=== PATIENT | female | born 1950 | race Caucasian/White ===

== ENCOUNTER 2016-12-24 07:53 | Day surgery (SDC) | payer MEDICARE ==
[2016-12-22 10:33] VITALS: BMI 29.2
[~2016-12-24 07:53] MED LIST: LACTATED RINGERS 1,000 ML IV SCH
[2016-12-24 08:29] VITALS: RESP 18; TEMP 98.1
[2016-12-24] MEDS ORDERED: PROPOFOL 10 MG/ML 20 ML VIAL IV ONE (08:48)
[2016-12-24] MEDS ORDERED: LIDOCAINE 1% INJ 10MG/ML (20 ML MDV) ONE (08:48)
--- NOTE | 2016-12-24 09:00 | P.PCN ---
Date of Procedure: 12/24/16 Procedure(s) Performed: BRIEF HISTORY: Patient is a 66-year-old, pleasant, white female, scheduled for an upper endoscopy as a part of evaluation of intermittent dysphagia to solids for the last 2 years duration. Symptoms are related progressively getting worse and she feels the food gets stuck in the low sternal area. Often happens with solids and meat. She also complains of heartburn on a daily basis. She has prior history of gastric bypass surgery 7 years ago for obesity. In view of the symptoms she is scheduled for an upper endoscopy with possible dilation. PROCEDURE PERFORMED: Esophagogastroduodenoscopy with biopsy. PREOPERATIVE DIAGNOSIS: And intermittent dysphagia to solids of 2 years duration. IV sedation per anesthesia. PROCEDURE: After informed consent was obtained, the patient was brought into the endoscopy unit. IV sedation was administered by Anesthesia under continuous monitoring. Initially the Olympus GIF-140 video endoscope was inserted into the mouth. Esophagus intubated without any difficulty. It was gradually advanced into the stomach the gastric pouch was visualized that had mild erythema consistent with gastritis. The Kvng-en-Y anastomosis appeared normal. The afferent and efferent loops were normal. The scope was advanced with ease 40 cm into the efferent loop and the mucosa appeared normal. The scope at this time was withdrawn to the gastric pouch. Biopsies were done from the gastric pouch mucosa. The scope was then withdrawn into the esophagus. The GE junction was located at 39 cm from the incisors. The esophagus appeared normal. There was no evidence of esophageal strictures seen. There were no erosions or ulcerations seen and biopsies were done from the distal esophagus and the patient tolerated the procedure well. IMPRESSION: 1. Normal appearing gastric pouch with mild patchy areas of erythema consistent with gastritis. 2. Normal-appearing esophagus with no evidence of esophagitis or esophageal stricture, status post multiple biopsies. 3. Kvng-en-Y anastomosis appeared normal. RECOMMENDATIONS: The findings of this examination were discussed with the patient as well as a family. She was advised to follow with the biopsy results. She was given a prescription for Zantac 150 mg twice daily to be taken on a daily basis and follow antireflux measures.
[2016-12-24 09:05] LABS: Glucose,Whole Blood 84 mg/dL (75-99)
[2016-12-24 09:19] VITALS: BP 109/67; PULSE 73
[2016-12-24 09:21] LABS: Glucose,Whole Blood 80 mg/dL (75-99)
== END 2016-12-24 09:50 | disposition home or self-care (01) ==
LOC: ORWHC2ENDO 07:53
PROVIDERS: ATTEND Internal Medicine Gastroenterology
DX: K29.50 Unspecified chronic gastritis without bleeding (principal); R13.10 Dysphagia, unspecified; Z98.84 Bariatric surgery status; I10 Essential (primary) hypertension; E13.40 Other specified diabetes mellitus with diabetic neuropathy, unspecified; Z79.84 Long term (current) use of oral hypoglycemic drugs; F32.9 Major depressive disorder, single episode, unspecified; Z79.899 Other long term (current) drug therapy; Z88.5 Allergy status to narcotic agent; Z88.0 Allergy status to penicillin
CPT/HCPCS: 88305; 88342; 43239; J2001; J2704

== ENCOUNTER 2017-11-03 01:05 | Emergency (ER) | payer MEDICARE ==
[2017-11-03 01:12] VITALS: RESP 16
--- NOTE | 2017-11-03 02:01 | XR ---
EXAMINATION TYPE: XR shoulder complete RT DATE OF EXAM: 11/03/2017 COMPARISON: NONE HISTORY: Fall. Landed on the shoulder. Pain. TECHNIQUE: 3 views FINDINGS: There is comminuted slightly impacted humeral neck fracture. There is no dislocation. There is osteopenia. Scapula appears intact. Right upper ribs appear intact. IMPRESSION: Acute slightly impacted comminuted humeral neck fracture.
--- NOTE | 2017-11-03 02:07 | ED ---
Fall HPI - General Chief Complaint: Fall Stated Complaint: fall,arm injury Time Seen by Provider: 11/03/17 01:13 Source: patient Mode of arrival: wheelchair - History of Present Illness Initial Comments: 66-year-old right-hand dominant female presented to the emergency department via private vehicle for evaluation of right arm pain. Patient reports that she was reaching over to pet her dog when she lost her balance falling backwards and striking her right arm. She immediately felt pain in the right arm and had decreased range of motion due to pain. She reports normal strength and sensation in the hand and wrist as well as elbow. However she has pain with any attempt to move the right upper extremity. Patient reports that she took 800 mg of Motrin prior to coming to the ER and that helped the pain somewhat as did applying an ice pack. Patient reports that she has had broken bones in her feet before but never a broken upper extremity. She does not follow with an orthopedic surgeon. She is only been seen by a inside finisher in the past. Patient denies striking her head, or loss of consciousness. She denies any headache, vision changes or neck pain. She denies any other injuries. She reports that she is otherwise very state of health. - Related Data Home Medications Medication Instructions Recorded Confirmed ALPRAZolam [Xanax] 0.25 mg PO TID PRN 02/12/16 03/06/17 Gabapentin [Neurontin] 100 mg PO HS 02/12/16 03/06/17 HYDROcodone/APAP 10-325MG [[place] 1 tab PO QID PRN 02/12/16 03/06/17 10-325] Lisinopril [Zestril] 10 mg PO DAILY 02/12/16 03/06/17 metFORMIN HCL [Glucophage] 500 mg PO W/BRKFST 02/12/16 03/06/17 Morphine Sulfate ER [Ms Contin 30 mg PO Q8H 03/06/17 03/06/17 30Mg] Previous Rx's Medication Instructions Recorded Ciprofloxacin HCl [Cipro] 500 mg PO Q12HR #14 tablet 03/07/17 HYDROcodone/APAP 5-325MG [[place] 5] 1 each PO Q4HR PRN #12 tab 11/03/17 Allergies Allergy/AdvReac Type Severity Reaction Status Date / Time meperidine [From Demerol] Allergy Unknown Verified 03/06/17 20:22 Sulfa (Sulfonamide Allergy Unknown Verified 03/07/17 00:05 Antibiotics) Penicillins AdvReac Shakiness Verified 03/06/17 20:22 Review of Systems ROS Statement: Those systems with pertinent positive or pertinent negative responses have been documented in the HPI. ROS Other: All systems not noted in ROS Statement are negative. Past Medical History Past Medical History: Diabetes Mellitus, Hypertension, Neurologic Disorder Additional Past Medical History / Comment(s): NEUROPATHY, MIGRAINES History of Any Multi-Drug Resistant Organisms: None Reported Past Surgical History: Bariatric Surgery, Bladder Surgery, Hysterectomy Additional Past Surgical History / Comment(s): ORAL SURGERY. COLONOSCOPY. LAP BAND THEN HAD BARIATRIC SURGERY Past Anesthesia/Blood Transfusion Reactions: No Reported Reaction Past Psychological History: Anxiety, Depression Smoking Status: Former smoker Past Alcohol Use History: None Reported Past Drug Use History: None Reported - Past Family History Mother Family Medical History: No Reported History General Exam Limitations: no limitations General appearance: alert, in no apparent distress Head exam: Present: atraumatic, normocephalic Eye exam: Present: normal appearance, PERRL, EOMI ENT exam: Present: mucous membranes moist, other (Edentulous) Neck exam: Present: normal inspection, full ROM. Absent: tenderness Respiratory exam: Present: normal lung sounds bilaterally. Absent: respiratory distress Cardiovascular Exam: Present: regular rate, normal rhythm GI/Abdominal exam: Present: soft. Absent: distended Rectal exam: Present: deferred Right Shoulder Exam: Present: tenderness, swelling, ecchymosis, deformity, crepitus. Absent: full ROM, abrasion Neurological exam: Present: alert, oriented X3 Psychiatric exam: Present: normal affect, normal mood Skin exam: Present: warm, dry, intact, other (Well-healing abrasions to the left forearm which patient reports is from playing with her dog) Course Vital Signs 11/03/17 11/03/17 01:06 03:07 Temperature 98.1 F 98.8 F Pulse Rate 74 91 Respiratory 16 16 Rate Blood Pressure 128/75 101/57 O2 Sat by Pulse 96 96 Oximetry Procedures - Orthopedic Splinting/Casting Injury #1 Upper Extremity Immobilizer: sling/shoulder immobilizer Medical Decision Making - Medical Decision Making Patient was seen and evaluated, patient with a fall onto her right arm now with obvious deformity Patient is neurovascularly intact, strong radial and ulnar pulses, normal sensation and range of motion of the fingers, wrist and elbow Patient declined by mouth or IV pain medication stating that she took a Motrin and is feeling better Xrays were ordered X-rays reveal a comminuted humeral fracture Patient was placed in a sling, after being placed in a sling patient did have some worsening pain and did request pain medication. Muscular morphine was given along with Zofran ODT for any associated nausea. She remained neurovascularly intact after splinting Discussed with patient the plan for discharge home, remain in the sling, follow- up with orthopedic surgery. I did offer the patient a prescription for Braggadocio for pain management, patient is agreeable, discussed with the patient the Braggadocio can be addicting and that it is a controlled substance and cannot be shared with others. Patient's breast understanding. Patient is right-handed so her ability to sign the paperwork was limited however she did make an attempt to sign paperwork with her left hand. All questions pertaining to care were answered to the best of my ability the patient was discharged home in stable condition. Disposition Clinical Impression: Fall, Right humeral fracture Disposition: HOME SELF-CARE Condition: Good Instructions: Fall Prevention for Older Adults (ED), Proximal Humerus Fracture (ED) Prescriptions: HYDROcodone/APAP 5-325MG [[place] 5] 1 each PO Q4HR PRN #12 tab PRN Reason: Pain Is patient prescribed a controlled substance at d/c from ED?: Yes Referrals: Bennie Orta MD [Primary Care Provider] - 1-2 days Jhonathan Hartmann MD [STAFF PHYSICIAN] - 1-2 days Americo Benton MD [Medical Doctor] - 1-2 days Time of Disposition: 02:50
[2017-11-03] MEDS ORDERED: MORPHINE SULFATE 4 MG/ML SYRINGE IM STA (02:09)
[2017-11-03] MEDS ORDERED: ONDANSETRON ODT 4 MG TAB PO STA (02:10)
[2017-11-03 03:09] VITALS: BP 101/57; PULSE 91; TEMP 98.8
== END 2017-11-03 02:55 | disposition home or self-care (01) ==
LOC: EC 01:05
DX: S42.351A Displaced comminuted fracture of shaft of humerus, right arm, initial encounter for closed fracture (principal); S50.812A Abrasion of left forearm, initial encounter; I10 Essential (primary) hypertension; E11.40 Type 2 diabetes mellitus with diabetic neuropathy, unspecified; G43.909 Migraine, unspecified, not intractable, without status migrainosus; Z87.891 Personal history of nicotine dependence; Z53.29 Procedure and treatment not carried out because of patient's decision for other reasons; Z79.84 Long term (current) use of oral hypoglycemic drugs; Z79.891 Long term (current) use of opiate analgesic; Z79.899 Other long term (current) drug therapy; Z88.5 Allergy status to narcotic agent; Z88.2 Allergy status to sulfonamides; Z88.0 Allergy status to penicillin; W01.0XXA Fall on same level from slipping, tripping and stumbling without subsequent striking against object, initial encounter; Y93.89 Activity, other specified; Y92.009 Unspecified place in unspecified non-institutional (private) residence as the place of occurrence of the external cause
CPT/HCPCS: 73030; 99283; 96372; L3670; J2270

== ENCOUNTER 2017-11-06 11:22 | Inpatient (IN) | payer MEDICARE ==
[2017-11-06] MEDS ORDERED: SODIUM CHLORIDE 0.9% 500 ML IV STA ×3 (11:30→13:30)
--- NOTE | 2017-11-06 11:34 | ED ---
General Adult HPI - General Chief complaint: Weakness Stated complaint: Weakness Time Seen by Provider: 11/06/17 11:24 Source: patient, RN notes reviewed Mode of arrival: EMS Limitations: no limitations - History of Present Illness Initial comments: Patient is a pleasant 66-year-old female presenting to the emergency Department with general weakness. Patient states symptoms started just 3 or 4 days ago. Patient has had multiple near falls. Patient did fall 3 days ago and broke her proximal right humerus. No other significant injuries. No head injury or loss of consciousness. Patient denies any isolated area of weakness. Patient states she is having shakes and weak all over. Patient states she has been drinking normally. No history of similar symptoms previously. No confusion. - Related Data Home Medications Medication Instructions Recorded Confirmed ALPRAZolam [Xanax] 0.25 mg PO TID PRN 02/12/16 11/06/17 Gabapentin [Neurontin] 100 mg PO HS 02/12/16 11/06/17 HYDROcodone/APAP 10-325MG [[place] 1 tab PO QID PRN 02/12/16 11/06/17 10-325] Morphine Sulfate ER [Ms Contin 30 mg PO TID 03/06/17 11/06/17 30Mg] Atorvastatin [Lipitor] 10 mg PO MOWEFR 11/06/17 11/06/17 FLUoxetine HCL [PROzac] 20 mg PO DAILY 11/06/17 11/06/17 Lisinopril [Prinivil] 5 mg PO DAILY 11/06/17 11/06/17 Oxybutynin Chloride [Ditropan] 5 mg PO BID 11/06/17 11/06/17 buPROPion XL [Wellbutrin Xl] 150 mg PO DAILY 11/06/17 11/06/17 Allergies Allergy/AdvReac Type Severity Reaction Status Date / Time meperidine [From Demerol] Allergy Unknown Verified 11/06/17 12:25 Sulfa (Sulfonamide Allergy Unknown Verified 11/06/17 12:25 Antibiotics) Penicillins AdvReac Shakiness Verified 11/06/17 12:25 Review of Systems ROS Statement: Those systems with pertinent positive or pertinent negative responses have been documented in the HPI. ROS Other: All systems not noted in ROS Statement are negative. Constitutional: Denies: fever Eyes: Denies: eye pain ENT: Denies: ear pain Respiratory: Denies: dyspnea Cardiovascular: Denies: chest pain Endocrine: Denies: fatigue Gastrointestinal: Denies: abdominal pain, melena Genitourinary: Denies: dysuria Musculoskeletal: Denies: back pain Skin: Denies: rash Neurological: Reports: weakness, abnormal gait. Denies: headache, confusion Past Medical History Past Medical History: Diabetes Mellitus, Hypertension, Neurologic Disorder Additional Past Medical History / Comment(s): NEUROPATHY, MIGRAINES History of Any Multi-Drug Resistant Organisms: None Reported Past Surgical History: Bariatric Surgery, Bladder Surgery, Hysterectomy Additional Past Surgical History / Comment(s): ORAL SURGERY. COLONOSCOPY. LAP BAND THEN HAD BARIATRIC SURGERY Past Anesthesia/Blood Transfusion Reactions: No Reported Reaction Past Psychological History: Anxiety, Depression Smoking Status: Former smoker Past Alcohol Use History: None Reported Past Drug Use History: None Reported - Past Family History Mother Family Medical History: No Reported History General Exam Limitations: no limitations General appearance: alert, in no apparent distress, other (Occasional tremors) Head exam: Present: atraumatic Eye exam: Present: normal appearance, PERRL, EOMI. Absent: nystagmus ENT exam: Present: mucous membranes dry Neck exam: Present: normal inspection Respiratory exam: Present: normal lung sounds bilaterally Cardiovascular Exam: Present: regular rate, normal rhythm GI/Abdominal exam: Present: soft. Absent: distended, tenderness Rectal exam: Present: normal inspection. Absent: black stool, bloody stool Extremities exam: Present: other (Right upper arm tenderness with mild swelling and ecchymosis) Neurological exam: Present: alert, oriented X3, CN II-XII intact. Absent: motor sensory deficit Expanded Neurological exam: Present: protecting the airway Patient oriented to: Present: person, place, time Speech: Present: fluid speech Motor strength exam: RUE: 5, LUE: 5, RLE: 5, LLE: 5 Eye Response: (4) open spontaneously Motor Response: (6) obeys commands Verbal Response: (5) oriented Psychiatric exam: Present: normal affect, normal mood Skin exam: Present: pallor Course Vital Signs 11/06/17 11/06/17 11:23 12:28 Temperature 99.1 F Pulse Rate 96 89 Respiratory 18 18 Rate Blood Pressure 90/45 85/50 O2 Sat by Pulse 98 98 Oximetry - Reevaluation(s) Reevaluation #1: 11/06/17 13:33 Patient does not meet sepsis criteria at this time. EKG Findings - EKG Comments: EKG Findings:: Normal sinus rhythm 89. KS 158. QRS 68. QT 334. QTC 406. Left axis. Small Q-wave appearance inferior and V3 through V6. No acute ST change. Medical Decision Making - Medical Decision Making Patient reevaluated and updated. Case discussed in detail with Dr. valles, who will admit for Dr. Martines. - Lab Data Result diagrams: 11/06/17 11:35 11/06/17 11:35 Lab Results 11/06/17 11/06/17 11/06/17 Range/Units 11:35 11:35 11:35 WBC 9.8 (3.8-10.6) k/uL RBC 2.80 L (3.80-5.40) m/uL Hgb 8.4 L (11.4-16.0) gm/dL Hct 27.7 L (34.0-46.0) % MCV 99.2 (80.0-100.0) fL MCH 30.1 (25.0-35.0) pg MCHC 30.3 L (31.0-37.0) g/dL RDW 14.0 (11.5-15.5) % Plt Count 195 (150-450) k/uL Neutrophils % 81 % Lymphocytes % 11 % Monocytes % 4 % Eosinophils % 1 % Basophils % 0 % Neutrophils # 8.0 H (1.3-7.7) k/uL Lymphocytes # 1.1 (1.0-4.8) k/uL Monocytes # 0.4 (0-1.0) k/uL Eosinophils # 0.1 (0-0.7) k/uL Basophils # 0.0 (0-0.2) k/uL Hypochromasia Marked PT (9.0-12.0) sec INR (<1.2) APTT (22.0-30.0) sec Sodium 136 L (137-145) mmol/L Potassium 4.3 (3.5-5.1) mmol/L Chloride 107 (98-107) mmol/L Carbon Dioxide 16 L (22-30) mmol/L Anion Gap 13 mmol/L BUN 51 H (7-17) mg/dL Creatinine 3.00 H (0.52-1.04) mg/dL Est GFR (CKD-EPI)AfAm 18 (>60 ml/min/1.73 sqM) Est GFR (CKD-EPI)NonAf 16 (>60 ml/min/1.73 sqM) Glucose 102 H (74-99) mg/dL Plasma Lactic Acid Christ (0.7-2.0) mmol/L Calcium 7.5 L (8.4-10.2) mg/dL Magnesium 2.0 (1.6-2.3) mg/dL Total Bilirubin 0.3 (0.2-1.3) mg/dL AST 22 (14-36) U/L ALT 27 (9-52) U/L Alkaline Phosphatase 116 (38-126) U/L Total Creatine Kinase 153 H (30-135) U/L CK-MB (CK-2) 4.4 H* (0.0-2.4) ng/mL CK-MB (CK-2) Rel Index 2.9 Troponin I <0.012 (0.000-0.034) ng/mL Total Protein 4.7 L (6.3-8.2) g/dL Albumin 2.3 L (3.5-5.0) g/dL TSH 0.748 (0.465-4.680) mIU/L Free T4 1.17 (0.78-2.19) ng/dL Free T3 pg/mL 1.9 L (2.8-5.3) pg/ml Urine Color Urine Appearance (Clear) Urine pH (5.0-8.0) Ur Specific [place] (1.001-1.035) Urine Protein (Negative) Urine Glucose (UA) (Negative) Urine Ketones (Negative) Urine Blood (Negative) Urine Nitrite (Negative) Urine Bilirubin (Negative) Urine Urobilinogen (<2.0) mg/dL Ur Leukocyte Esterase (Negative) Urine RBC (0-5) /hpf Urine WBC (0-5) /hpf Urine WBC Clumps (None) /hpf Urine Bacteria (None) /hpf Urine Yeast (Budding) (None) /hpf Stool Occult Blood (Negative) 11/06/17 11/06/17 11/06/17 Range/Units 11:35 11:35 12:21 WBC (3.8-10.6) k/uL RBC (3.80-5.40) m/uL Hgb (11.4-16.0) gm/dL Hct (34.0-46.0) % MCV (80.0-100.0) fL MCH (25.0-35.0) pg MCHC (31.0-37.0) g/dL RDW (11.5-15.5) % Plt Count (150-450) k/uL Neutrophils % % Lymphocytes % % Monocytes % % Eosinophils % % Basophils % % Neutrophils # (1.3-7.7) k/uL Lymphocytes # (1.0-4.8) k/uL Monocytes # (0-1.0) k/uL Eosinophils # (0-0.7) k/uL Basophils # (0-0.2) k/uL Hypochromasia PT 10.3 (9.0-12.0) sec INR 1.1 (<1.2) APTT 22.9 (22.0-30.0) sec Sodium (137-145) mmol/L Potassium (3.5-5.1) mmol/L Chloride (98-107) mmol/L Carbon Dioxide (22-30) mmol/L Anion Gap mmol/L BUN (7-17) mg/dL Creatinine (0.52-1.04) mg/dL Est GFR (CKD-EPI)AfAm (>60 ml/min/1.73 sqM) Est GFR (CKD-EPI)NonAf (>60 ml/min/1.73 sqM) Glucose (74-99) mg/dL Plasma Lactic Acid Christ 0.8 (0.7-2.0) mmol/L Calcium (8.4-10.2) mg/dL Magnesium (1.6-2.3) mg/dL Total Bilirubin (0.2-1.3) mg/dL AST (14-36) U/L ALT (9-52) U/L Alkaline Phosphatase (38-126) U/L Total Creatine Kinase (30-135) U/L CK-MB (CK-2) (0.0-2.4) ng/mL CK-MB (CK-2) Rel Index Troponin I (0.000-0.034) ng/mL Total Protein (6.3-8.2) g/dL Albumin (3.5-5.0) g/dL TSH (0.465-4.680) mIU/L Free T4 (0.78-2.19) ng/dL Free T3 pg/mL (2.8-5.3) pg/ml Urine Color Urine Appearance (Clear) Urine pH (5.0-8.0) Ur Specific [place] (1.001-1.035) Urine Protein (Negative) Urine Glucose (UA) (Negative) Urine Ketones (Negative) Urine Blood (Negative) Urine Nitrite (Negative) Urine Bilirubin (Negative) Urine Urobilinogen (<2.0) mg/dL Ur Leukocyte Esterase (Negative) Urine RBC (0-5) /hpf Urine WBC (0-5) /hpf Urine WBC Clumps (None) /hpf Urine Bacteria (None) /hpf Urine Yeast (Budding) (None) /hpf Stool Occult Blood Negative (Negative) 11/06/17 Range/Units 13:09 WBC (3.8-10.6) k/uL RBC (3.80-5.40) m/uL Hgb (11.4-16.0) gm/dL Hct (34.0-46.0) % MCV (80.0-100.0) fL MCH (25.0-35.0) pg MCHC (31.0-37.0) g/dL RDW (11.5-15.5) % Plt Count (150-450) k/uL Neutrophils % % Lymphocytes % % Monocytes % % Eosinophils % % Basophils % % Neutrophils # (1.3-7.7) k/uL Lymphocytes # (1.0-4.8) k/uL Monocytes # (0-1.0) k/uL Eosinophils # (0-0.7) k/uL Basophils # (0-0.2) k/uL Hypochromasia PT (9.0-12.0) sec INR (<1.2) APTT (22.0-30.0) sec Sodium (137-145) mmol/L Potassium (3.5-5.1) mmol/L Chloride (98-107) mmol/L Carbon Dioxide (22-30) mmol/L Anion Gap mmol/L BUN (7-17) mg/dL Creatinine (0.52-1.04) mg/dL Est GFR (CKD-EPI)AfAm (>60 ml/min/1.73 sqM) Est GFR (CKD-EPI)NonAf (>60 ml/min/1.73 sqM) Glucose (74-99) mg/dL Plasma Lactic Acid Christ (0.7-2.0) mmol/L Calcium (8.4-10.2) mg/dL Magnesium (1.6-2.3) mg/dL Total Bilirubin (0.2-1.3) mg/dL AST (14-36) U/L ALT (9-52) U/L Alkaline Phosphatase (38-126) U/L Total Creatine Kinase (30-135) U/L CK-MB (CK-2) (0.0-2.4) ng/mL CK-MB (CK-2) Rel Index Troponin I (0.000-0.034) ng/mL Total Protein (6.3-8.2) g/dL Albumin (3.5-5.0) g/dL TSH (0.465-4.680) mIU/L Free T4 (0.78-2.19) ng/dL Free T3 pg/mL (2.8-5.3) pg/ml Urine Color Yellow Urine Appearance Cloudy H (Clear) Urine pH 5.5 (5.0-8.0) Ur Specific [place] 1.013 (1.001-1.035) Urine Protein 1+ H (Negative) Urine Glucose (UA) Negative (Negative) Urine Ketones Negative (Negative) Urine Blood Small H (Negative) Urine Nitrite Negative (Negative) Urine Bilirubin Negative (Negative) Urine Urobilinogen <2.0 (<2.0) mg/dL Ur Leukocyte Esterase Large H (Negative) Urine RBC 17 H (0-5) /hpf Urine WBC >182 H (0-5) /hpf Urine WBC Clumps Few H (None) /hpf Urine Bacteria Moderate H (None) /hpf Urine Yeast (Budding) Moderate H (None) /hpf Stool Occult Blood (Negative) - Radiology Data Radiology results: report reviewed (Computed tomography scan of the brain shows no acute process.), image reviewed (Chest x-ray shows no acute intrathoracic disease.) Disposition Clinical Impression: Urinary tract infection, Acute renal failure, Anemia Disposition: ADMITTED IP TO THIS HOSP Condition: Serious Is patient prescribed a controlled substance at d/c from ED?: No Referrals: Bennie Orta MD [Primary Care Provider] - 1-2 days Decision Time: 13:33
[2017-11-06 11:52] LABS: Basophils % (A) 0 %; Eosinophils # (A) 0.1 k/uL (0-0.7); Eosinophils % (A) 1 %; HCT 27.7 % (34.0-46.0); HGB 8.4 gm/dL (11.4-16.0); Hypochromasia Marked; Lymphocytes # (A) 1.1 k/uL (1.0-4.8); Lymphocytes % (A) 11 %; MCH 30.1 pg (25.0-35.0); MCHC 30.3 g/dL (31.0-37.0); MCV 99.2 fL (80.0-100.0); Mean Platelet Volume 7.7; Monocytes # (A) 0.4 k/uL (0-1.0); Monocytes % (A) 4 %; Neutrophils % (A) 81 %; Platelet Count 195 k/uL (150-450); WBC 9.8 k/uL (3.8-10.6)
[2017-11-06 11:56] LABS: Albumin 2.3 g/dL (3.5-5.0); Calcium 7.5 mg/dL (8.4-10.2); Potassium 4.3 mmol/L (3.5-5.1); Total Bilirubin 0.3 mg/dL (0.2-1.3); Total Protein 4.7 g/dL (6.3-8.2)
[2017-11-06 11:58] LABS: INR 1.1 (<1.2); Partial Thromboplastin Time 22.9 sec (22.0-30.0); Prothrombin Time 10.3 sec (9.0-12.0)
[2017-11-06 12:07] LABS: Creatine Kinase 153 U/L (30-135)
--- NOTE | 2017-11-06 12:11 | XR ---
EXAMINATION TYPE: XR chest 1V DATE OF EXAM: 11/06/2017 HISTORY: Weakness. REFERENCE: Previous study of 02/12/2016. FINDINGS: There is chronic apparent elevation right hemidiaphragm. Heart size upper limits of normal. The lungs are clear. Pleural spaces are clear. IMPRESSION: NO ACTIVE INTRATHORACIC DISEASE.
[2017-11-06 12:13] LABS: T4, Free (Free Thyroxine) 1.17 ng/dL (0.78-2.19)
--- NOTE | 2017-11-06 12:13 | CT ---
EXAMINATION TYPE: CT brain wo con DATE OF EXAM: 11/06/2017 COMPARISON: Previous study dated 09/12/2010 HISTORY: generalized weakness CT DLP: 940.8 mGycm Automated exposure control for dose reduction was used. FINDINGS: There are increasing changes of sulcal prominence and ventriculomegaly, compatible with atrophic beebe ge. There is diffuse periventricular white matter lucency, compatible with chronic white matter ische claudette change. There is no acute focal lesion, mass effect or midline shift identified. I do not see angus dence of intracranial blood. Visualized portions of the paranasal sinuses and mastoids are clear. The bony calvarium is intact. IMPRESSION: 1. NO ACUTE INTRACRANIAL ABNORMALITY. 2. MILD DEGENERATIVE CHANGE.
[2017-11-06] MEDS ORDERED: PANTOPRAZOLE 40 MG/10 ML VIAL IVP STA (12:17)
[2017-11-06 12:20] LABS: Troponin I <0.012 ng/mL (0.000-0.034)
[2017-11-06 12:24] LABS: Creatine Kinase MB 4.4 ng/mL (0.0-2.4)
[2017-11-06] MEDS ORDERED: SODIUM CHLORIDE 0.9% 1,000 ML IV STA (12:25)
[2017-11-06 13:23] LABS: Appearance,Urine Cloudy (Clear); Bacteria,Urine Moderate /hpf; Bilirubin,Urine Negative (Negative); Blood,Urine Small (Negative); Budding Yeast,Urine Moderate /hpf; Color,Urine Yellow; Glucose,Urine (UA) Negative (Negative); Ketones,Urine Negative (Negative); Leukocyte Esterase,Urine Large (Negative); Nitrite,Urine Negative (Negative); PH, Urine 5.5 (5.0-8.0); Protein,Urine 1+ (Negative); RBC,Urine 17 /hpf (0-5); Specific Gravity,Urine 1.013 (1.001-1.035); Urobilinogen,Urine <2.0 mg/dL (<2.0); WBC,Urine >182 /hpf (0-5)
[2017-11-06] MEDS ORDERED: cefTRIAXone IN SWFI 1,000 MG/10 ML SYRINGE IVP STA (13:32)
[2017-11-06] MEDS ORDERED: NALOXONE 0.4 MG/ML 1 ML VIAL IV PRN (13:33)
[2017-11-06] MEDS ORDERED: SODIUM CHLORIDE 0.9% 1,000 ML IV ONE ×2 (14:08→16:27)
[2017-11-06 14:25] LABS: Basophils % (A) 0 %; Eosinophils # (A) 0.1 k/uL (0-0.7); Eosinophils % (A) 1 %; HCT 24.6 % (34.0-46.0); HGB 7.5 gm/dL (11.4-16.0); Hypochromasia Marked; Lymphocytes # (A) 0.6 k/uL (1.0-4.8); Lymphocytes % (A) 9 %; MCH 30.2 pg (25.0-35.0); MCHC 30.6 g/dL (31.0-37.0); MCV 98.8 fL (80.0-100.0); Mean Platelet Volume 8.2; Monocytes # (A) 0.1 k/uL (0-1.0); Monocytes % (A) 2 %; Neutrophils # (A) 5.6 k/uL (1.3-7.7); Neutrophils % (A) 87 %; Platelet Count 152 k/uL (150-450); RBC 2.49 m/uL (3.80-5.40); WBC 6.4 k/uL (3.8-10.6)
[2017-11-06] MEDS: SODIUM CHLORIDE 0.9% 1,000 ML IV SCH ×2 (15:40→22:02)
[2017-11-06 17:42] LABS: Glucose,Whole Blood 84 mg/dL (75-99)
[2017-11-06] MEDS: NOREPINEPHRINE 4 MG in SODIUM CHLORIDE 0.9% 250 ML IV SCH (18:15)
[2017-11-06] MEDS ORDERED: SODIUM CHLORIDE 0.9% 500 ML IV ONE (18:26)
[2017-11-06] MEDS ORDERED: cefTRIAXone IN SWFI 1,000 MG/10 ML SYRINGE IVP SCH (21:00)
[2017-11-06 22:01] LABS: Basophils % (A) 0 %; Eosinophils # (A) 0.2 k/uL (0-0.7); Eosinophils % (A) 1 %; HCT 33.4 % (34.0-46.0); Hypochromasia Moderate; Lymphocytes # (A) 1.3 k/uL (1.0-4.8); Lymphocytes % (A) 9 %; MCH 31.6 pg (25.0-35.0); MCHC 32.7 g/dL (31.0-37.0); MCV 96.8 fL (80.0-100.0); Monocytes # (A) 0.7 k/uL (0-1.0); Monocytes % (A) 5 %; Neutrophils % (A) 82 %; Platelet Count 168 k/uL (150-450); RBC 3.45 m/uL (3.80-5.40); RDW 14.4 % (11.5-15.5); WBC 14.6 k/uL (3.8-10.6)
[2017-11-06] MEDS: CEFEPIME 1 GM in SODIUM CHLORIDE 0.9% 50 ML IVPB SCH (22:02)
[2017-11-06 22:05] LABS: HGB 10.9 gm/dL (11.4-16.0)
[2017-11-07 04:42] VITALS: BMI 25.6
[2017-11-07 05:08] LABS: Basophils % (A) 0 %; Eosinophils # (A) 0.1 k/uL (0-0.7); Eosinophils % (A) 1 %; HCT 33.9 % (34.0-46.0); HGB 10.4 gm/dL (11.4-16.0); Hypochromasia Marked; Lymphocytes # (A) 0.7 k/uL (1.0-4.8); Lymphocytes % (A) 7 %; MCH 30.3 pg (25.0-35.0); MCHC 30.8 g/dL (31.0-37.0); MCV 98.3 fL (80.0-100.0); Mean Platelet Volume 7.6; Monocytes # (A) 0.5 k/uL (0-1.0); Monocytes % (A) 5 %; Neutrophils # (A) 8.7 k/uL (1.3-7.7); Neutrophils % (A) 84 %; Platelet Count 170 k/uL (150-450); Poikilocytosis Slight; RBC 3.44 m/uL (3.80-5.40); RDW 14.3 % (11.5-15.5); WBC 10.3 k/uL (3.8-10.6)
[2017-11-07] MEDS: NOREPINEPHRINE 4 MG in SODIUM CHLORIDE 0.9% 250 ML IV SCH (05:15)
[2017-11-07 06:06] LABS: Calcium 6.7 mg/dL (8.4-10.2); Magnesium 1.8 mg/dL (1.6-2.3); Phosphorus 4.5 mg/dL (2.5-4.5); Potassium 4.3 mmol/L (3.5-5.1)
[2017-11-07] MEDS ORDERED: Magnesium Replacement Protocol 1 EACH MISC MISCELLANE PRN (06:24)
[2017-11-07] MEDS: SODIUM CHLORIDE 0.9% 1,000 ML IV SCH ×3 (07:07→20:04)
--- NOTE | 2017-11-07 07:57 | XR ---
EXAMINATION TYPE: XR chest 1V DATE OF EXAM: 11/07/2017 HISTORY: Shortness of breath. COMPARISON: 11/06/2017 TECHNIQUE: Single view of the chest is submitted. FINDINGS: Demonstrated are scattered senescent parenchymal change. There is no evidence for focal infiltrate. The heart is stable. Hilar and mediastinal structures are within normal limits. Degenerative changes are seen of the dorsal spine. Again noted is right humeral fracture. IMPRESSION: 1. Chronic changes without evidence for acute pulmonary disease.
[2017-11-07] MEDS: MAGNESIUM SULFATE-D5W PMX 1 GM in DEXTROSE/WATER 1 100ML.BAG IVPB SCH ×2 (09:35→11:57)
[2017-11-07] MEDS: CEFEPIME 1 GM in SODIUM CHLORIDE 0.9% 50 ML IVPB SCH (09:35)
[2017-11-07] MEDS: PANTOPRAZOLE 40 MG/10 ML VIAL IV SCH (09:35)
[2017-11-07] MEDS: ATORVASTATIN 10 MG TAB PO SCH (09:35)
[2017-11-07] MEDS: buPROPion XL 150 MG TAB.ER.24H PO SCH (09:35)
[2017-11-07] MEDS: HYDROcodone/APAP 10-325MG 1 EACH TAB PO PRN ×3 (09:37→22:32)
--- NOTE | 2017-11-07 12:35 | P.CNPUL ---
History of Present Illness Consult date: 11/07/17 Requesting physician: Miguel A Haji Reason for consult: other (Hypertension, urinary tract infection, septic shock) Chief complaint: Weakness and falling frequently. History of present illness: This is a 66-year-old female, presented to the ER with mostly symptoms of generalized weakness. Her symptoms have been going on for the last 4 days. As a matter of fact she fell 3 days prior to her presentation, and she sustained a fracture of her proximal right humerus. Patient was seen in the ER, and she was given a referral [facility] her humerus fracture. Patient has not made an appointment yet. She presented yesterday mostly with recurrent episodes of falling, weakness, unable to be steady on her feet, and she was noted to have low blood pressure. Low hemoglobin of 7.5. Evidence of bacteriuria and pyuria, normal lactic acid, acute kidney injury picture, with BUN of 51 and creatinine of 3.0. Patient also noted to have leukocytosis. And she has been complaining of fever intermittently over the last 4 days. She also had symptoms of foul-smelling urine, and burning sensation on urination. Patient was admitted, given fluid boluses about 3 L. She was also transfused with 1 unit of packed RBC placed on norepinephrine, and she is presently on 4 g of norepinephrine. Patient has made a significant improvement over the last 24 hours, her blood pressure remains marginal, her urine output is now adequate , urine cultures and blood cultures are pending. Patient was empirically started on antibiotics. And she is now on cefepime. Patient is now comfortable , in no distress, she is alert oriented 3, and she denies any headaches, no blurred vision, no dizziness. Denies any chest pain, no shortness of breath no cough no wheezing. Denies any nausea vomiting or abdominal pain. She had urinary symptoms as noted above. And she had neurological symptoms of mostly weakness and unable to walk steadily on her feet for the last 4 days. Patient is also complaining of pain over the right humerus secondary to recent fall and fracture. According to the she had a similar episode years ago, and she required admission to the ICU and her main presentation was a urinary tract infection and sepsis. Review of Systems 14 point review of systems were obtained, please refer to pertinent positives and negatives as noted in HPI. Otherwise remaining systems are negative. Past Medical History Past Medical History: Diabetes Mellitus, Hypertension, Neurologic Disorder Additional Past Medical History / Comment(s): NEUROPATHY, MIGRAINES History of Any Multi-Drug Resistant Organisms: None Reported Past Surgical History: Bariatric Surgery, Bladder Surgery, Hysterectomy Additional Past Surgical History / Comment(s): ORAL SURGERY. COLONOSCOPY. LAP BAND THEN HAD BARIATRIC SURGERY; bladder surgery may have been for a benign cyst but is not sure Past Anesthesia/Blood Transfusion Reactions: No Reported Reaction Smoking Status: Never smoker - Past Family History Mother Family Medical History: Diabetes Mellitus Father Family Medical History: CVA/TIA, Diabetes Mellitus Medications and Allergies Home Medications Medication Instructions Recorded Confirmed Type ALPRAZolam [Xanax] 0.25 mg PO TID PRN 02/12/16 11/06/17 History Gabapentin [Neurontin] 100 mg PO HS 02/12/16 11/06/17 History HYDROcodone/APAP 10-325MG [[place] 1 tab PO QID PRN 02/12/16 11/06/17 History 10-325] Morphine Sulfate ER [Ms Contin 30 mg PO TID 03/06/17 11/06/17 History 30Mg] Atorvastatin [Lipitor] 10 mg PO MOWEFR 11/06/17 11/06/17 History FLUoxetine HCL [PROzac] 20 mg PO DAILY 11/06/17 11/06/17 History Lisinopril [Prinivil] 5 mg PO DAILY 11/06/17 11/06/17 History Oxybutynin Chloride [Ditropan] 5 mg PO BID 11/06/17 11/06/17 History buPROPion XL [Wellbutrin Xl] 150 mg PO DAILY 11/06/17 11/06/17 History Allergies Allergy/AdvReac Type Severity Reaction Status Date / Time meperidine [From Demerol] Allergy Unknown Verified 11/06/17 12:25 Sulfa (Sulfonamide Allergy Unknown Verified 11/06/17 12:25 Antibiotics) Penicillins AdvReac Shakiness Verified 11/06/17 12:25 Physical Exam Vitals: Vital Signs Temp Pulse Resp BP Pulse Ox 11/07/17 11:43 97 11/07/17 10:15 83 11 L 105/51 99 11/07/17 10:00 84 10 L 107/51 99 11/07/17 09:45 84 12 102/62 99 11/07/17 09:30 83 12 133/73 99 11/07/17 09:15 83 12 100 11/07/17 09:00 98 15 114/53 98 11/07/17 08:45 84 16 111/51 100 11/07/17 08:30 84 12 117/85 99 11/07/17 08:15 80 15 112/55 99 11/07/17 08:00 98.2 F 89 14 112/52 97 11/07/17 07:45 81 13 109/49 99 11/07/17 07:30 80 13 108/57 98 11/07/17 07:15 83 11 L 91/47 99 11/07/17 07:00 82 12 84/49 99 11/07/17 06:45 85 13 83/57 98 11/07/17 06:30 86 13 97/55 99 11/07/17 06:15 96 17 113/41 94 L 11/07/17 06:00 87 11 L 117/52 98 11/07/17 05:45 88 20 112/54 98 11/07/17 05:30 87 12 105/50 98 11/07/17 05:15 87 13 102/47 98 11/07/17 05:00 91 13 148/114 96 11/07/17 04:45 87 12 123/54 98 11/07/17 04:30 101 H 18 112/65 98 11/07/17 04:15 89 22 122/52 98 11/07/17 04:00 98.2 F 89 13 128/92 98 11/07/17 03:45 87 14 108/54 98 11/07/17 03:30 90 13 112/62 98 11/07/17 03:15 86 13 106/64 99 11/07/17 03:00 97 11 L 102/52 97 11/07/17 02:45 93 13 113/50 98 11/07/17 02:30 91 14 108/55 98 11/07/17 02:15 88 15 113/52 98 11/07/17 02:00 90 14 127/68 99 11/07/17 01:45 82 15 113/57 98 11/07/17 01:30 85 12 133/52 99 11/07/17 01:15 84 11 L 116/51 98 11/07/17 01:00 87 14 118/50 99 11/07/17 00:45 88 14 106/57 99 08/27/18 00:30 81 16 125/59 99 11/07/17 00:15 89 13 106/54 99 11/07/17 00:00 98.1 F 91 18 112/46 98 11/06/17 23:45 86 20 120/59 98 11/06/17 23:30 90 13 117/60 98 18 23:15 87 14 96/45 99 11/06/17 23:00 88 11 L 107/45 99 11/06/17 22:45 91 14 93/46 97 11/06/17 22:30 92 12 91/36 99 18 22:15 86 12 110/53 99 11/06/17 22:00 82 13 113/59 100 11/06/17 21:45 91 12 112/51 98 11/06/17 21:30 91 11 L 103/40 99 11/06/17 21:15 88 19 96/53 98 11/06/17 21:00 92 14 85/55 96 11/06/17 20:45 88 12 104/54 99 11/06/17 20:30 89 13 104/41 98 11/06/17 20:15 84 11 L 112/54 98 11/06/17 20:00 98.3 F 97 22 108/53 97 11/06/17 19:40 85 12 82/40 98 11/06/17 19:34 98.3 F 88 18 82/40 11/06/17 19:20 84 16 98/56 99 11/06/17 19:00 83 11 L 91/51 98 11/06/17 18:40 98.2 F 73 18 85/39 99 18 18:20 85 75/46 99 11/06/17 18:10 98.1 F 88 18 66/37 99 11/06/17 18:00 98.2 F 84 18 73/47 99 18 17:50 91 70/45 98 11/06/17 17:40 98.2 F 92 95 11/06/17 17:15 97.9 F 85 18 81/49 100 18 16:29 82 16 82/41 100 11/06/17 15:40 85 18 76/45 95 11/06/17 14:28 97.7 F 81 16 85/43 97 11/06/17 13:42 98 F 94 20 88/53 97 11/06/17 12:28 89 18 85/50 98 Intake and Output 11/06/17 11/07/17 11/07/17 22:59 06:59 14:59 Intake Total 1292.187 2835.124 500 Output Total 650 745 355 Balance 868.376 431.124 145 Intake: IV 625 1000 500 Sodium Chloride 0.9% 1, 625 1000 500 000 ml @ 125 mls/hr IV . Q8H ALBERTO Rx#:[id number] Intake, IV Titration 583.376 176.124 Amount Norepinephrine 4 mg In 83.376 176.124 Sodium Chloride 0.9% 250 ml @ Titrate IV .Q0M ALBERTO Rx#:[id number] Sodium Chloride 0.9% 500 500 ml @ 999 mls/hr IV .Q31M ONE Rx#:[id number] Blood Product 310 Rc As-1 Unit 310 [id number] Output: Urine 650 745 355 Other: Voiding Method Indwelling Catheter Indwelling Catheter Indwelling Catheter Weight 63.5 kg Physical Exam: Revealed a 66-year-old female in no distress, very pleasant. Resting in bed quietly. Head: Atraumatic, normocephalic. HEENT:[Neck is supple.] [No neck masses.] [No thyromegaly.] [No JVD.] PERRLA, EOMI. No icterus. Chest: [Clear throughout, no crackles, no rhonchi, no wheezes.] Cardiac Exam: [Normal S1 and S2, no S3 gallop, no murmur.] Abdomen: [Soft, nontender, no megaly, no rebound, no guarding, normal bowel sounds.] Extremities: [No clubbing, no edema, no cyanosis.] There is evidence of ecchymosis noted on the proximal humerus area, and the right upper extremity is immobilized. Neurological Exam: [No focal neurologic deficit.] Alert oriented 3. Lymphatics: No lymphadenopathy. Musculoskeletal: Limited range of motion in the right upper extremity related to recent trauma otherwise unremarkable. Results - Laboratory Findings CBC and BMP: 11/07/17 04:50 11/07/17 04:50 PT/INR, D-dimer PT 10.3 sec (9.0-12.0) 11/06/17 11:35 INR 1.1 (<1.2) 11/06/17 11:35 Abnormal lab findings: Abnormal Labs 11/06/17 11/06/17 11/06/17 11:35 11:35 11:35 WBC RBC 2.80 L Hgb 8.4 L Hct 27.7 L MCHC 30.3 L Neutrophils # 8.0 H Lymphocytes # Sodium 136 L Chloride Carbon Dioxide 16 L BUN 51 H Creatinine 3.00 H Glucose 102 H Calcium 7.5 L Total Creatine Kinase 153 H CK-MB (CK-2) 4.4 H* Total Protein 4.7 L Albumin 2.3 L Free T3 pg/mL 1.9 L Urine Appearance Urine Protein Urine Blood Ur Leukocyte Esterase Urine RBC Urine WBC Urine WBC Clumps Urine Bacteria Urine Yeast (Budding) Crossmatch 11/06/17 11/06/17 11/06/17 11:35 13:09 14:11 WBC RBC 2.49 L Hgb 7.5 L Hct 24.6 L MCHC 30.6 L Neutrophils # Lymphocytes # 0.6 L Sodium Chloride Carbon Dioxide BUN Creatinine Glucose Calcium Total Creatine Kinase CK-MB (CK-2) Total Protein Albumin Free T3 pg/mL Urine Appearance Cloudy H Urine Protein 1+ H Urine Blood Small H Ur Leukocyte Esterase Large H Urine RBC 17 H Urine WBC >182 H Urine WBC Clumps Few H Urine Bacteria Moderate H Urine Yeast (Budding) Moderate H Crossmatch See Detail 11/06/17 11/07/17 11/07/17 21:35 04:50 04:50 WBC 14.6 H RBC 3.45 L 3.44 L Hgb 10.9 L D 10.4 L Hct 33.4 L 33.9 L MCHC 30.8 L Neutrophils # 12.0 H 8.7 H Lymphocytes # 0.7 L Sodium Chloride 116 H Carbon Dioxide 11 L BUN 43 H Creatinine 2.10 H Glucose 103 H Calcium 6.7 L Total Creatine Kinase CK-MB (CK-2) Total Protein Albumin Free T3 pg/mL Urine Appearance Urine Protein Urine Blood Ur Leukocyte Esterase Urine RBC Urine WBC Urine WBC Clumps Urine Bacteria Urine Yeast (Budding) Crossmatch - Diagnostic Findings Chest x-ray: image reviewed (Suspect a limited left lower lobe atelectasis.) Additional studies: CT of the brain no acute intracranial abnormality noted. Assessment and Plan Assessment: Impression: 1 acute sepsis and septic shock, most likely secondary to urinary tract infection. 2 acute urinary tract infection 3 acute kidney injury secondary to sepsis. 4 acute right humerus fracture 5 multiple comorbidities including benign essential hypertension, diabetes, depression, chronic history of urinary retention, hypercholesterolemia. Recommendation: Continue present supportive care measures including fluids, antibiotics, pressors/norepinephrine, titrate to a mean arterial pressure of 65. Orthopedic consultation was initiated. Continue to monitor in the ICU. GI and DVT prophylaxis. We'll continue to follow. Patient is critically ill, but improved compared to presentation last night. Critical care time is 40 minutes. Discussed her condition with her and her . Time with Patient: Greater than 30
[2017-11-07 15:22] LABS: Hemoglobin A1C 5.1 % (4.0-6.0)
--- NOTE | 2017-11-07 19:26 | P.NPCON ---
History of Present Illness - Reason for Consult Consult date: 11/07/17 acute renal failure - Chief Complaint Acute kidney injury with fall and fracture of the humerus and severe anemia - History of Present Illness This is a 66-year-old female seen in consultation because of acute kidney injury. Supposedly she fell accidentally and broke her right humerus and has a hematoma. She came in her pressure was low in the 60s sometimes and then she was found to be anemic with hemoglobin of 8.4. Her creatinine was 3 has improved to 2.1. She has chronic kidney disease with a creatinine of 1.2 as of 03/06/2017. Additionally she had fair amount of non-gap acidosis. Bicarb is 16 anion gap of 13. Patient is currently comfortable and denies any fever chills cough shortness of breath chest pain. No nausea vomiting diarrhea. No changes in medications recently No history of taking any nonsteroidals. Patient has no history of dysuria frequency. Urinalysis shows WBCs large leukocyte Estrace and possible UTI. Cultures are pending patient is on antibiotics. She is known with diabetes, history of lap band, Past Medical History Past Medical History: Diabetes Mellitus, Hypertension, Neurologic Disorder Additional Past Medical History / Comment(s): NEUROPATHY, MIGRAINES History of Any Multi-Drug Resistant Organisms: None Reported Past Surgical History: Bariatric Surgery, Bladder Surgery, Hysterectomy Additional Past Surgical History / Comment(s): ORAL SURGERY. COLONOSCOPY. LAP BAND THEN HAD BARIATRIC SURGERY; bladder surgery may have been for a benign cyst but is not sure Past Anesthesia/Blood Transfusion Reactions: No Reported Reaction Smoking Status: Never smoker - Past Family History Mother Family Medical History: Diabetes Mellitus Father Family Medical History: CVA/TIA, Diabetes Mellitus Medications and Allergies Home Medications Medication Instructions Recorded Confirmed Type ALPRAZolam [Xanax] 0.25 mg PO TID PRN 02/12/16 11/06/17 History Gabapentin [Neurontin] 100 mg PO HS 02/12/16 11/06/17 History HYDROcodone/APAP 10-325MG [[place] 1 tab PO QID PRN 02/12/16 11/06/17 History 10-325] Morphine Sulfate ER [Ms Contin 30 mg PO TID 03/06/17 11/06/17 History 30Mg] Atorvastatin [Lipitor] 10 mg PO MOWEFR 11/06/17 11/06/17 History FLUoxetine HCL [PROzac] 20 mg PO DAILY 11/06/17 11/06/17 History Lisinopril [Prinivil] 5 mg PO DAILY 11/06/17 11/06/17 History Oxybutynin Chloride [Ditropan] 5 mg PO BID 11/06/17 11/06/17 History buPROPion XL [Wellbutrin Xl] 150 mg PO DAILY 11/06/17 11/06/17 History Allergies Allergy/AdvReac Type Severity Reaction Status Date / Time meperidine [From Demerol] Allergy Unknown Verified 11/06/17 12:25 Sulfa (Sulfonamide Allergy Unknown Verified 11/06/17 12:25 Antibiotics) Penicillins AdvReac Shakiness Verified 11/06/17 12:25 Physical Exam Vitals: Vital Signs Temp Pulse Resp BP Pulse Ox 11/07/17 18:00 81 16 95/50 97 11/07/17 17:45 82 12 102/51 97 11/07/17 17:30 82 12 98/55 98 11/07/17 17:15 82 14 100/53 99 11/07/17 17:00 91 14 99/49 97 11/07/17 16:45 76 11 L 101/51 99 11/07/17 16:30 79 10 L 105/56 99 11/07/17 16:15 80 10 L 107/53 99 11/07/17 16:00 98.8 F 80 13 91/47 99 11/07/17 15:45 77 11 L 113/46 98 11/07/17 15:30 77 12 108/55 99 11/07/17 15:15 80 9 L 109/53 99 11/07/17 15:00 79 12 107/52 99 11/07/17 14:45 96 17 104/51 98 11/07/17 14:30 78 13 109/51 99 11/07/17 14:15 78 14 100/56 99 11/07/17 14:00 78 13 108/51 99 11/07/17 13:45 80 11 L 112/59 98 11/07/17 13:30 78 11 L 104/48 98 11/07/17 13:15 83 15 118/61 99 11/07/17 13:00 81 13 118/61 98 11/07/17 12:45 85 11 L 100/65 97 11/07/17 12:30 85 10 L 127/58 99 11/07/17 12:15 76 11 L 104/52 99 11/07/17 12:00 85 13 94/53 99 11/07/17 11:45 78 11 L 110/51 99 11/07/17 11:43 97 11/07/17 11:30 80 10 L 101/49 99 11/07/17 11:15 81 13 106/50 99 11/07/17 11:00 83 9 L 106/52 99 11/07/17 10:45 82 12 100/52 99 11/07/17 10:30 89 20 103/47 98 11/07/17 10:15 83 11 L 105/51 99 11/07/17 10:00 84 10 L 107/51 99 11/07/17 09:45 84 12 102/62 99 11/07/17 09:30 83 12 133/73 99 11/07/17 09:15 83 12 100 11/07/17 09:00 98 15 114/53 98 11/07/17 08:45 84 16 111/51 100 11/07/17 08:30 84 12 117/85 99 11/07/17 08:15 80 15 112/55 99 11/07/17 08:00 98.2 F 89 14 112/52 97 11/07/17 07:45 81 13 109/49 99 11/07/17 07:30 80 13 108/57 98 11/07/17 07:15 83 11 L 91/47 99 11/07/17 07:00 82 12 84/49 99 11/07/17 06:45 85 13 83/57 98 11/07/17 06:30 86 13 97/55 99 11/07/17 06:15 96 17 113/41 94 L 11/07/17 06:00 87 11 L 117/52 98 11/07/17 05:45 88 20 112/54 98 11/07/17 05:30 87 12 105/50 98 11/07/17 05:15 87 13 102/47 98 11/07/17 05:00 91 13 148/114 96 11/07/17 04:45 87 12 123/54 98 11/07/17 04:30 101 H 18 112/65 98 11/07/17 04:15 89 22 122/52 98 11/07/17 04:00 98.2 F 89 13 128/92 98 11/07/17 03:45 87 14 108/54 98 11/07/17 03:30 90 13 112/62 98 11/07/17 03:15 86 13 106/64 99 11/07/17 03:00 97 11 L 102/52 97 11/07/17 02:45 93 13 113/50 98 11/07/17 02:30 91 14 108/55 98 11/07/17 02:15 88 15 113/52 98 11/07/17 02:00 90 14 127/68 99 11/07/17 01:45 82 15 113/57 98 11/07/17 01:30 85 12 133/52 99 11/07/17 01:15 84 11 L 116/51 98 11/07/17 01:00 87 14 118/50 99 11/07/17 00:45 88 14 106/57 99 11/07/17 00:30 81 16 125/59 99 11/07/17 00:15 89 13 106/54 99 11/07/17 00:00 98.1 F 91 18 112/46 98 11/06/17 23:45 86 20 120/59 98 11/06/17 23:30 90 13 117/60 98 11/06/17 23:15 87 14 96/45 99 11/06/17 23:00 88 11 L 107/45 99 11/06/17 22:45 91 14 93/46 97 11/06/17 22:30 92 12 91/36 99 11/06/17 22:15 86 12 110/53 99 11/06/17 22:00 82 13 113/59 100 11/06/17 21:45 91 12 112/51 98 11/06/17 21:30 91 11 L 103/40 99 11/06/17 21:15 88 19 96/53 98 11/06/17 21:00 92 14 85/55 96 11/06/17 20:45 88 12 104/54 99 11/06/17 20:30 89 13 104/41 98 11/06/17 20:15 84 11 L 112/54 98 11/06/17 20:00 98.3 F 97 22 108/53 97 11/06/17 19:40 85 12 82/40 98 11/06/17 19:34 98.3 F 88 18 82/40 Intake and Output 11/07/17 11/07/17 11/07/17 06:59 14:59 22:59 Intake Total 0994.313 4670.125 517.703 Output Total 745 730 230 Balance 431.124 334.125 287.703 Intake: IV 1000 1000 500 Sodium Chloride 0.9% 1, 1000 1000 500 000 ml @ 125 mls/hr IV . Q8H ALBERTO Rx#:[id number] Intake, IV Titration 176.124 64.125 17.703 Amount Norepinephrine 4 mg In 176.124 64.125 17.703 Sodium Chloride 0.9% 250 ml @ Titrate IV .Q0M ALBERTO Rx#:[id number] Output: Urine 745 730 230 Other: Voiding Method Indwelling Catheter Indwelling Catheter Indwelling Catheter Weight 63.5 kg On examination she looks somewhat pale, awake alert oriented comfortable A chin exam no JVP lymphadenopathy thyromegaly no carotid bruit neck is supple no facial asymmetry Lungs are clear to auscultation and percussion good air entry bilaterally Heart sounds are unremarkable for any murmur rub gallop Abdomen soft nontender no organomegaly ascites masses Extremity exam reveals trace edema Neurologically awake alert oriented. She has fair amount of bruising on the right humerus and the right arm is in a sling. Results - Lab Results Most recent lab results Calcium 6.7 mg/dL (8.4-10.2) L 11/07/17 04:50 Phosphorus 4.5 mg/dL (2.5-4.5) 11/07/17 04:50 Magnesium 1.8 mg/dL (1.6-2.3) 11/07/17 04:50 11/07/17 04:50 11/07/17 04:50 Assessment and Plan Assessment: Impression 1. Acute kidney injury secondary to a fall with fracture of right humerus with subsequent large hematoma hemoglobin was 8.4 hypotension. Creatinine on admission was 3 improved to 2.1 with hydration. 2. Non-gap acidosis secondary acute kidney injury and bicarb was 16 gap was 13. With IV fluids gap has worsened to 11 inches expected. 3. Chronic kidney disease creatinine is 1.2 dated 03/06/2017 likely nephrosclerosis. Urinalysis shows 1+ proteinuria 3. History of accident in the fall. 4. Diabetes mellitus 5. History of lap band. Recommendation. 1. Start sodium bicarb 650 4 times a day. 2. Maintain IV fluids currently at normal 725 an hour. 3. Transfuse as needed. 4. Monitor labs including acid base. 5. Likely has urinary tract infection, cultures are pending currently on antibiotics. 6. Avoid nephrotoxic medication secondary to vancomycin and Bactrim and use other antibiotics Thank you for this consultation we'll continue to follow
[2017-11-07] MEDS: SODIUM BICARBONATE TAB 650 MG TAB PO SCH (20:05)
[2017-11-07] MEDS: NAPROXEN 250 MG TAB PO SCH (20:05)
[2017-11-07] MEDS ORDERED: NAPROXEN 250 MG TAB PO SCH (22:00)
[2017-11-07] MEDS ORDERED: NOREPINEPHRINE 4 MG in DEXTROSE 5% IN WATER 250 ML IV SCH ×2 (22:07)
--- NOTE | 2017-11-07 22:18 | HP ---
HISTORY AND PHYSICAL DATE OF SERVICE: 11/07/2017 PRESENTING COMPLAINT: Weak, tired. HISTORY OF PRESENTING COMPLAINT: This is a very pleasant 66-year-old patient Dr. Bennie Orta. Patient had presented to the ER on 11/03/2017 when she suffered a fall and had a fracture of the right upper humerus. She was given an arm sling. Yesterday patient was feeding her dog and she tripped and fell down yet again. She was brought into the ER. The patient was found to be hypotensive and in renal failure. Blood pressure was at 70 systolic. The patient was admitted to the ICU, started on IV fluids; also put on Levophed. Patient was given a unit of blood. Patient's creatinine in February of 2017 was 1.2. Today it was 3. Also patient was given bicarb because of metabolic acidosis. Patient is currently on 2 mcg of Levophed. Orthopedics was consulted. The patient has been feeling tired, rundown and occasionally dizzy. REVIEW OF SYSTEMS: CONSTITUTIONAL: Tired. HEENT: None. RESPIRATORY: None. CARDIOVASCULAR: None. GASTROINTESTINAL: None. GENITOURINARY: Urinary incontinence. DERMATOLOGICAL: Bruising on the right elbow. HEMATOLOGICAL: None. LYMPHATICS: None. PSYCHIATRY: None. NEUROLOGICAL: None. MUSCULOSKELETAL: Pain in the lower back and right shoulder. PAST MEDICAL HISTORY: 1. Diabetes mellitus, type 2. 2. Hypertension. 3. Chronic urine incontinence. 4. Depression. 5. Chronic low back pain. PAST SURGICAL HISTORY: 1. Bariatric surgery. 2. Bladder surgery. 3. Hysterectomy. 4. Oral surgery. 5. Lap band. PSYCH HISTORY: Depression. SOCIAL HISTORY: Does not smoke or drink alcohol. . FAMILY HISTORY: Diabetes. HOME MEDICATIONS: 1. Wellbutrin XL 150 mg a day. 2. Ditropan 5 mg p.o. b.i.d. 3. [place] Contin 30 mg t.i.d. 4. Prinivil 5 mg p.o. daily. 5. [place] 10 one tablet q.i.d. p.r.n. 6. Neurontin 100 mg p.o. at bedtime. 7. Prozac 20 mg a day. 8. Lipitor 10 mg p.o. Tuesday, Tuesday and Tuesday. 9. Xanax 0.25 p.o. t.i.d. p.r.n. ALLERGIES: 1. DEMEROL. 2. SULFA. 3. PENICILLIN. PHYSICAL EXAMINATION: VITAL SIGNS ON PRESENTATION: Temperature 99.1, pulse 96, respiration 18. Blood pressure was down to 76/45, pulse 98% on room air. GENERAL APPEARANCE: Average build. Sitting up, tired-appearing. EYES: Pupils equal. Conjunctivae pale. HEENT: External appearance of nose and ears normal. Oral cavity normal. NECK: JVD not raised. Mass not palpable. RESPIRATORY: Effort normal. LUNGS: Fair air entry. CARDIOVASCULAR: First and second sounds normal. No edema. ABDOMEN: Soft, non-tender. Liver and spleen not palpable. LYMPHATIC: No lymph node palpable in neck or axillae. PSYCHIATRY: Alert and oriented x3. Mood and affect normal. EXTREMITIES: Right arm in a sling with bruising noted in the upper part of the arm. INVESTIGATIONS: Hemoglobin was 7.5, potassium 4.3, BUN 51, creatinine 3.0. Back in on February of 2017 BUN and creatinine were 18 and 1.20. Also patient's UA positive for leukocyte esterase and WBC. ASSESSMENT: 1. Hypotensive shock. Patient admitted to the ICU. Patient is requiring IV fluids and Levophed. 2. Chronic anemia, cause unknown, asymptomatic. Could be a contribution from renal failure, requiring one unit of blood for hypotension. 3. Acute renal failure; could be acute tubular necrosis. Patient is also on ANU inhibitor. 4. Metabolic acidosis from renal failure. Patient's bicarbonate was down to 11. 5. Right humerus fracture secondary to fall. 6. Acute urinary tract infection. PLAN: Patient admitted to the ICU. Getting IV fluids and Levophed, antibiotics in form of IV cefepime. Home medications are resumed. ANU inhibitor was held. The patient was also given p.o. bicarb. Right arm is in a sling. Consultation was made to Critical Care, Nephrology and Orthopedics. Care was discussed the patient. Questions were answered. MMODL / IJN: [id number] /
[2017-11-08] MEDS: HYDROcodone/APAP 10-325MG 1 EACH TAB PO PRN ×4 (04:02→21:28)
[2017-11-08 04:58] LABS: Calcium 7.7 mg/dL (8.4-10.2); Magnesium 2.1 mg/dL (1.6-2.3); Phosphorus 3.8 mg/dL (2.5-4.5); Potassium 4.9 mmol/L (3.5-5.1)
[2017-11-08 05:27] LABS: Basophils % (A) 0 %; Eosinophils # (A) 0.1 k/uL (0-0.7); Eosinophils % (A) 2 %; HCT 30.8 % (34.0-46.0); HGB 9.8 gm/dL (11.4-16.0); Hypochromasia Slight; Lymphocytes # (A) 0.9 k/uL (1.0-4.8); Lymphocytes % (A) 16 %; MCH 30.5 pg (25.0-35.0); MCHC 31.7 g/dL (31.0-37.0); MCV 96.3 fL (80.0-100.0); Mean Platelet Volume 8.2; Monocytes # (A) 0.4 k/uL (0-1.0); Monocytes % (A) 8 %; Neutrophils % (A) 70 %; Platelet Count 192 k/uL (150-450); RDW 14.2 % (11.5-15.5); WBC 5.7 k/uL (3.8-10.6)
[2017-11-08] MEDS: SODIUM CHLORIDE 0.9% 1,000 ML IV SCH ×3 (05:37→20:17)
[2017-11-08] MEDS: PANTOPRAZOLE 40 MG/10 ML VIAL IV SCH (08:18)
[2017-11-08] MEDS: ATORVASTATIN 10 MG TAB PO SCH (08:18)
[2017-11-08] MEDS: NAPROXEN 250 MG TAB PO SCH (08:18)
[2017-11-08] MEDS: buPROPion XL 150 MG TAB.ER.24H PO SCH (08:18)
[2017-11-08] MEDS: SODIUM BICARBONATE TAB 650 MG TAB PO SCH ×4 (08:18→23:27)
[2017-11-08] MEDS: CEFEPIME 0.5 GM in SODIUM CHLORIDE 0.9% 50 ML IVPB SCH (09:12)
--- NOTE | 2017-11-08 10:58 | P.CNOR ---
History of Present Illness - [facility] Consult date: 11/08/17 Requesting physician: Americo Benton Consult reason: fracture (right proximal humerus) History of present illness: Patient is seen at bedside this am. She is a pleasant 66 yo female with a known right proximal humerus fracture. She presented to the ED on 11/03/17 after suffering a fall at home. Xrays showed a right proximal humerus fracture. ED provider placed in sling and advised to f/u with orthopedics. She was readmitted a few days later for ARF and multiple medical problems. She has been in a sling. She has pain at the right shoulder as expected. She denies numbness or tingling. She has no other complaints currently. Review of Systems All systems: negative Constitutional: Denies chills, Denies fever Eyes: denies blurred vision, denies pain Ears, nose, mouth and throat: Denies headache, Denies sore throat Cardiovascular: Denies chest pain, Denies shortness of breath Respiratory: Denies cough Gastrointestinal: Denies abdominal pain, Denies diarrhea, Denies nausea, Denies vomiting Genitourinary: Denies dysuria, Denies hematuria Musculoskeletal: Denies myalgias Integumentary: Denies pruritus, Denies rash Neurological: Denies numbness, Denies weakness Psychiatric: Denies anxiety, Denies depression Endocrine: Denies fatigue, Denies weight change Past Medical History Past Medical History: Diabetes Mellitus, Hypertension, Neurologic Disorder Additional Past Medical History / Comment(s): NEUROPATHY, MIGRAINES History of Any Multi-Drug Resistant Organisms: None Reported Past Surgical History: Bariatric Surgery, Bladder Surgery, Hysterectomy Additional Past Surgical History / Comment(s): ORAL SURGERY. COLONOSCOPY. LAP BAND THEN HAD BARIATRIC SURGERY; bladder surgery may have been for a benign cyst but is not sure Past Anesthesia/Blood Transfusion Reactions: No Reported Reaction Smoking Status: Never smoker - Past Family History Mother Family Medical History: Diabetes Mellitus Father Family Medical History: CVA/TIA, Diabetes Mellitus Medications and Allergies Home Medications Medication Instructions Recorded Confirmed Type ALPRAZolam [Xanax] 0.25 mg PO TID PRN 02/12/16 11/06/17 History Gabapentin [Neurontin] 100 mg PO HS 02/12/16 11/06/17 History HYDROcodone/APAP 10-325MG [[place] 1 tab PO QID PRN 02/12/16 11/06/17 History 10-325] Morphine Sulfate ER [Ms Contin 30 mg PO TID 03/06/17 11/06/17 History 30Mg] Atorvastatin [Lipitor] 10 mg PO MOWEFR 11/06/17 11/06/17 History FLUoxetine HCL [PROzac] 20 mg PO DAILY 11/06/17 11/06/17 History Lisinopril [Prinivil] 5 mg PO DAILY 11/06/17 11/06/17 History Oxybutynin Chloride [Ditropan] 5 mg PO BID 11/06/17 11/06/17 History buPROPion XL [Wellbutrin Xl] 150 mg PO DAILY 11/06/17 11/06/17 History Allergies Allergy/AdvReac Type Severity Reaction Status Date / Time meperidine [From Demerol] Allergy Unknown Verified 11/06/17 12:25 Sulfa (Sulfonamide Allergy Unknown Verified 11/06/17 12:25 Antibiotics) Penicillins AdvReac Shakiness Verified 11/06/17 12:25 Physical Examination Inspection of the right shoulder and arm show resolving echymoses. There is no erythema or deformity. ROM is not tested due to fracture. She has Motor and sensation intact throughout the right upper extremity. 2+ radial pulses and less than 2 sec cap refill present distally. Results Xrays of right shoulder show a mild displaced comminuted proximal humerus fracture. - Labs Labs: Abnormal Lab Results - Last 24 Hours (Table) 11/08/17 11/08/17 Range/Units 04:28 04:28 RBC 3.20 L (3.80-5.40) m/uL Hgb 9.8 L (11.4-16.0) gm/dL Hct 30.8 L (34.0-46.0) % Lymphocytes # 0.9 L (1.0-4.8) k/uL Chloride 118 H (98-107) mmol/L Carbon Dioxide 13 L (22-30) mmol/L BUN 33 H (7-17) mg/dL Creatinine 1.59 H (0.52-1.04) mg/dL Calcium 7.7 L (8.4-10.2) mg/dL Microbiology - Last 24 Hours (Table) 11/07/17 16:13 Urine Culture - Preliminary Urine,Catheterized H & H 08/11/06/17 11/06/17 Range/Units 11:35 14:11 21:35 Hgb 8.4 L 7.5 L 10.9 L D (11.4-16.0) gm/dL Hct 27.7 L 24.6 L 33.4 L (34.0-46.0) % 11/07/17 11/08/17 Range/Units 04:50 04:28 Hgb 10.4 L 9.8 L (11.4-16.0) gm/dL Hct 33.9 L 30.8 L (34.0-46.0) % Coagulation 11/06/17 Range/Units 11:35 INR 1.1 (<1.2) Result Diagrams: 11/08/17 04:28 11/08/17 04:28 Assessment and Plan (1) Right humeral fracture Narrative/Plan: The patient has been reviewed with Dr. Benton. There is no plan for immediate surgical intervention. Recommend continued use of sling, non weightbearing and pain management. She may f/u with Dr. Benton as an outpatient when discharged. We will sign off for now. Thank you Current Visit: No Status: Acute Priority: Medium Code(s): S42.301A - UNSP FRACTURE OF SHAFT OF HUMERUS, RIGHT ARM, INIT SNOMED Code(s): 23112245 Time with Patient: Less than 30
--- NOTE | 2017-11-08 11:24 | P.PN ---
Subjective Progress Note Date: 11/08/17 Principal diagnosis: Acute septic shock secondary to urinary tract infection This is a 66-year-old female, presented to the ER with mostly symptoms of generalized weakness. Her symptoms have been going on for the last 4 days. As a matter of fact she fell 3 days prior to her presentation, and she sustained a fracture of her proximal right humerus. Patient was seen in the ER, and she was given a referral [facility]. Patient has not made an appointment yet. She presented yesterday mostly with recurrent episodes of falling, weakness, unable to be steady on her feet, and she was noted to have low blood pressure. Low hemoglobin of 7.5. Evidence of bacteriuria and pyuria, normal lactic acid, acute kidney injury picture, with BUN of 51 and creatinine of 3.0. Patient also noted to have leukocytosis. And she has been complaining of fever intermittently over the last 4 days. She also had symptoms of foul-smelling urine, and burning sensation on urination. Patient was admitted, given fluid boluses about 3 L. She was also transfused with 1 unit of packed RBC placed on norepinephrine, and she is presently on 4 g of norepinephrine. Patient has made a significant improvement over the last 24 hours, her blood pressure remains marginal, her urine output is now adequate , urine cultures and blood cultures are pending. Patient was empirically started on antibiotics. And she is now on cefepime. Patient is now comfortable , in no distress, she is alert oriented 3, and she denies any headaches, no blurred vision, no dizziness. Denies any chest pain, no shortness of breath no cough no wheezing. Denies any nausea vomiting or abdominal pain. She had urinary symptoms as noted above. And she had neurological symptoms of mostly weakness and unable to walk steadily on her feet for the last 4 days. Patient is also complaining of pain over the right humerus secondary to recent fall and fracture. According to the she had a similar episode years ago, and she required admission to the ICU and her main presentation was a urinary tract infection and sepsis. Reevaluated today on 11/08/2017, patient is hemodynamically stable, off norepinephrine since 5:00 this morning. Blood pressure is stable. Patient is feeling better, relatively asymptomatic. WBC count is 5.7, hemoglobin is 9.8 electrolytes are relatively normal continues to have low bicarb and hyperchloremic metabolic acidosis. BUN is down to 33, creatinine is down to 1.59. Urine culture is pending. Patient was seen by orthopedics, and recommended that her right upper extremity remains in a sling, and should follow -up with him on outpatient basis. Objective - Vital Signs Vital signs: Vital Signs Temp 98.2 F 11/08/17 08:00 Pulse 73 11/08/17 10:00 Resp 13 11/08/17 10:00 BP 107/57 11/08/17 10:00 Pulse Ox 99 11/08/17 10:00 Intake & Output 11/07/17 11/08/17 11/08/17 18:59 06:59 18:59 Intake Total 5112.771 5597.938 495 Output Total 960 835 250 Balance 621.828 854.938 245 Weight 73 kg Intake: IV 1500 1625 375 Sodium Chloride 0.9% 1, 1500 1625 375 000 ml @ 125 mls/hr IV . Q8H ALBERTO Rx#:[id number] Intake, IV Titration 81.828 64.938 Amount Norepinephrine 4 mg In 18.625 Dextrose 5% in Water 250 ml @ Titrate IV .Q0M ALBERTO Rx#:[id number] Norepinephrine 4 mg In 81.828 46.313 Sodium Chloride 0.9% 250 ml @ Titrate IV .Q0M ALBERTO Rx#:[id number] Oral 120 Output: Urine 960 835 250 Other: Voiding Method Indwelling Catheter Indwelling Catheter Indwelling Catheter - Exam Physical Exam: Revealed a 66-year-old female in no distress, very pleasant. Head: Atraumatic, normocephalic. HEENT:[Neck is supple.] [No neck masses.] [No thyromegaly.] [No JVD.] PERRLA, EOMI. No icterus. Chest: [Clear throughout, no crackles, no rhonchi, no wheezes.] Cardiac Exam: [Normal S1 and S2, no S3 gallop, no murmur.] Abdomen: [Soft, nontender, no megaly, no rebound, no guarding, normal bowel sounds.] Extremities: [No clubbing, no edema, no cyanosis.] There is evidence of ecchymosis noted on the proximal humerus area, and the right upper extremity is in a sling as recommended by orthopedics Neurological Exam: [No focal neurologic deficit.] Alert oriented 3. Lymphatics: No lymphadenopathy. Musculoskeletal: Limited range of motion in the right upper extremity related to recent trauma otherwise unremarkable. Right upper extremity is in a sling. - Labs CBC & Chem 7: 11/08/17 04:28 11/08/17 04:28 Labs: Abnormal Lab Results - Last 24 Hours (Table) 11/08/17 11/08/17 Range/Units 04:28 04:28 RBC 3.20 L (3.80-5.40) m/uL Hgb 9.8 L (11.4-16.0) gm/dL Hct 30.8 L (34.0-46.0) % Lymphocytes # 0.9 L (1.0-4.8) k/uL Chloride 118 H (98-107) mmol/L Carbon Dioxide 13 L (22-30) mmol/L BUN 33 H (7-17) mg/dL Creatinine 1.59 H (0.52-1.04) mg/dL Calcium 7.7 L (8.4-10.2) mg/dL Microbiology - Last 24 Hours (Table) 11/07/17 16:13 Urine Culture - Preliminary Urine,Catheterized Assessment and Plan Assessment: Impression: 1 acute sepsis and septic shock, most likely secondary to urinary tract infection. 2 acute urinary tract infection 3 acute kidney injury secondary to sepsis. 4 acute right humerus fracture 5 multiple comorbidities including benign essential hypertension, diabetes, depression, chronic history of urinary retention, hypercholesterolemia. Recommendation: Continue present supportive care measures including fluids, antibiotics, however considering the blood pressure is stabilizing, patient could be transferred out of the ICU to a regular medical floor bed, and we'll continue antibiotics, continue present supportive care measures. Discussed her condition with her and with her at bedside. Time with Patient: Less than 30
--- NOTE | 2017-11-08 14:59 | PN ---
PROGRESS NOTE Patient is seen for followup for acute kidney injury. Renal function is significantly improved with creatinine down from 3 to 1.59 mg/dL. Patient is not on any pressors. She is maintained on IV fluids. PHYSICAL EXAMINATION: Blood pressure is 102/54, heart rate 79 per minute. She is afebrile. Examination of the heart: S1, S2. Examination of the lungs: Bilateral breath sounds are heard. Abdomen is soft, nontender. Examination lower extremity shows no evidence of edema. 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 LABS: Labs show sodium 137, potassium 4.9, chloride 118, BUN 33, serum creatinine 1.59, hemoglobin 9.8 g/dL. ASSESSMENT: 1. Acute kidney injury associated with hypotension hypoperfusion currently significantly improved. 2. Status post fall and fracture of right humerus with large hematoma. 3. Anemia associated with the development of hematoma. 4. CKD. Creatinine 1.2 on 03/06/2017. Etiology is likely nephrosclerosis. 5. History of lap band procedure. 6. Non anion gap metabolic acidosis, currently maintained on oral sodium bicarb CO2 is improved. Will continue to monitor for now. PLAN: Repeat labs in a.m. Continue with oral sodium bicarb. Continue to avoid nephrotoxic agents, particularly NSAIDs. MMODL / IJN: [id number] /
[2017-11-08] MEDS: DOCUSATE 100 MG CAP PO SCH (20:17)
--- NOTE | 2017-11-08 22:41 | PN ---
PROGRESS NOTE DATE OF SERVICE: 11/08/2017 PRESENTING COMPLAINT: Tired. INTERVAL HISTORY: This is a patient who presented with hypotensive shock, acute renal failure and UTI. The patient was taken off Levophed this morning. Renal function is getting a bit better. The patient did tolerate some diet, was in the ICU this morning. REVIEW OF SYSTEMS: Done for constitutional, cardiovascular, GI, pulmonary; relevant findings as above. CURRENT MEDICATIONS: Reviewed that include: 1. IV cefepime. 2. Sodium bicarb and. 3. IV fluids. EXAMINATION: Temperature 97.9, pulse 78, respirations 12, blood pressure 104/60, pulse ox 98% on 2L. GENERAL APPEARANCE: Lying in bed awake, tired-appearing. EYES: Pupils equal. Conjunctivae pale. HEENT: External appearance of nose and ears normal. Oral cavity normal. NECK: JVD not raised. Mass not palpable. RESPIRATORY: Effort normal. Lungs are clear. CARDIOVASCULAR: First and second sounds normal. No edema. ABDOMEN: Soft, nontender. Liver, spleen not palpable. PSYCHIATRY: Alert and oriented x3. Mood and affect normal. EXTREMITIES: Right arm in a sling, bruising still present. INVESTIGATIONS: White count 5.7, hemoglobin 9.8. Potassium 4.9, BUN 33, creatinine 1.59. ASSESSMENT: 1. Hypotensive shock status post Levophed, now corrected, off pressors. 2. Next chronic anemia, cause unknown, asymptomatic, could be related to renal failure. 3. Acute renal failure, could be acute tubular necrosis. The patient is off angiotensin-converting enzyme inhibitors, improving. 4. Metabolic acidosis from renal failure. 5. Right humerus fracture secondary to fall, currently for conservative management. 6. Acute urinary tract infection. Cultures pending. PLAN: Continue current medication and treatment plan. Await culture results. The patient will be moved out of ICU. Care was discussed with the patient. The patient may need inpatient rehab. MMODL / IJN: [id number] /
[2017-11-09] MEDS: HYDROcodone/APAP 10-325MG 1 EACH TAB PO PRN ×4 (03:29→21:45)
[2017-11-09] MEDS: ALPRAZolam 0.25 MG TAB PO PRN ×4 (03:30→21:45)
[2017-11-09] MEDS: SODIUM CHLORIDE 0.9% 1,000 ML IV SCH ×3 (07:00→21:29)
[2017-11-09 08:56] LABS: Basophils % (A) 0 %; Eosinophils # (A) 0.1 k/uL (0-0.7); Eosinophils % (A) 1 %; HCT 31.3 % (34.0-46.0); Hypochromasia Slight; Lymphocytes % (A) 12 %; MCH 30.9 pg (25.0-35.0); MCHC 31.9 g/dL (31.0-37.0); Mean Platelet Volume 7.8; Monocytes # (A) 0.5 k/uL (0-1.0); Monocytes % (A) 6 %; Neutrophils # (A) 6.3 k/uL (1.3-7.7); Neutrophils % (A) 78 %; Platelet Count 201 k/uL (150-450); RBC 3.23 m/uL (3.80-5.40); WBC 8.1 k/uL (3.8-10.6)
[2017-11-09 09:16] LABS: Calcium 7.9 mg/dL (8.4-10.2); Magnesium 1.9 mg/dL (1.6-2.3); Phosphorus 3.3 mg/dL (2.5-4.5); Potassium 3.9 mmol/L (3.5-5.1)
[2017-11-09] MEDS: CEFEPIME 0.5 GM in SODIUM CHLORIDE 0.9% 50 ML IVPB SCH (09:56)
[2017-11-09] MEDS: buPROPion XL 150 MG TAB.ER.24H PO SCH (09:56)
[2017-11-09] MEDS: DOCUSATE 100 MG CAP PO SCH ×2 (09:57→21:45)
[2017-11-09] MEDS: PANTOPRAZOLE 40 MG/10 ML VIAL IV SCH (10:26)
[2017-11-09] MEDS: SODIUM BICARBONATE TAB 650 MG TAB PO SCH ×4 (10:27→21:44)
[2017-11-09] MEDS: ATORVASTATIN 10 MG TAB PO SCH (10:27)
--- NOTE | 2017-11-09 13:49 | P.PN ---
Subjective Progress Note Date: 11/09/17 Principal diagnosis: Acute septic shock secondary to urinary tract infection This is a 66-year-old female, presented to the ER with mostly symptoms of generalized weakness. Her symptoms have been going on for the last 4 days. As a matter of fact she fell 3 days prior to her presentation, and she sustained a fracture of her proximal right humerus. Patient was seen in the ER, and she was given a referral [facility]. Patient has not made an appointment yet. She presented yesterday mostly with recurrent episodes of falling, weakness, unable to be steady on her feet, and she was noted to have low blood pressure. Low hemoglobin of 7.5. Evidence of bacteriuria and pyuria, normal lactic acid, acute kidney injury picture, with BUN of 51 and creatinine of 3.0. Patient also noted to have leukocytosis. And she has been complaining of fever intermittently over the last 4 days. She also had symptoms of foul-smelling urine, and burning sensation on urination. Patient was admitted, given fluid boluses about 3 L. She was also transfused with 1 unit of packed RBC placed on norepinephrine, and she is presently on 4 g of norepinephrine. Patient has made a significant improvement over the last 24 hours, her blood pressure remains marginal, her urine output is now adequate , urine cultures and blood cultures are pending. Patient was empirically started on antibiotics. And she is now on cefepime. Patient is now comfortable , in no distress, she is alert oriented 3, and she denies any headaches, no blurred vision, no dizziness. Denies any chest pain, no shortness of breath no cough no wheezing. Denies any nausea vomiting or abdominal pain. She had urinary symptoms as noted above. And she had neurological symptoms of mostly weakness and unable to walk steadily on her feet for the last 4 days. Patient is also complaining of pain over the right humerus secondary to recent fall and fracture. According to the she had a similar episode years ago, and she required admission to the ICU and her main presentation was a urinary tract infection and sepsis. Reevaluated today on 11/08/2017, patient is hemodynamically stable, off norepinephrine since 5:00 this morning. Blood pressure is stable. Patient is feeling better, relatively asymptomatic. WBC count is 5.7, hemoglobin is 9.8 electrolytes are relatively normal continues to have low bicarb and hyperchloremic metabolic acidosis. BUN is down to 33, creatinine is down to 1.59. Urine culture is pending. Patient was seen by orthopedics, and recommended that her right upper extremity remains in a sling, and should follow -up with him on outpatient basis. The patient is seen today 11/09/2017 in follow-up on the regular medical floor. She is currently awake. In no acute distress. Maintaining good O2 saturations in the high 90s on room air. She's been afebrile. Hemodynamically stable. Blood and urine cultures reveal no growth. White count 8.1. Hemoglobin 10.0. Creatinine 1.28. Objective - Vital Signs Vital signs: Vital Signs Temp 97.6 F 11/09/17 07:20 Pulse 79 11/09/17 07:20 Resp 16 11/09/17 07:20 BP 114/67 11/09/17 07:20 Pulse Ox 99 11/09/17 07:20 Intake & Output 11/08/17 11/09/17 11/09/17 18:59 06:59 18:59 Intake Total 1745 375 250 Output Total 800 1330 Balance 945 -955 250 Weight 59 kg 59 kg Intake: IV 1375 375 Sodium Chloride 0.9% 1, 1375 375 000 ml @ 125 mls/hr IV . Q8H ALBERTO Rx#:[id number] Oral 370 250 Output: Urine 800 1330 Uretheral (Krishnamurthy) 600 Other: Voiding Method Indwelling Catheter # Bowel Movements 1 - Exam Physical Exam: Revealed a 66-year-old female in no distress, very pleasant. Head: Atraumatic, normocephalic. HEENT:[Neck is supple.] [No neck masses.] [No thyromegaly.] [No JVD.] PERRLA, EOMI. No icterus. Chest: [Clear throughout, no crackles, no rhonchi, no wheezes.] Cardiac Exam: [Normal S1 and S2, no S3 gallop, no murmur.] Abdomen: [Soft, nontender, no megaly, no rebound, no guarding, normal bowel sounds.] Extremities: [No clubbing, no edema, no cyanosis.] There is evidence of ecchymosis noted on the proximal humerus area, and the right upper extremity is in a sling as recommended by orthopedics Neurological Exam: [No focal neurologic deficit.] Alert oriented 3. Lymphatics: No lymphadenopathy. Musculoskeletal: Limited range of motion in the right upper extremity related to recent trauma otherwise unremarkable. Right upper extremity is in a sling. - Labs CBC & Chem 7: 11/09/17 08:08 11/09/17 08:08 Labs: Abnormal Lab Results - Last 24 Hours (Table) 11/09/17 11/09/17 Range/Units 08:08 08:08 RBC 3.23 L (3.80-5.40) m/uL Hgb 10.0 L (11.4-16.0) gm/dL Hct 31.3 L (34.0-46.0) % Chloride 119 H (98-107) mmol/L Carbon Dioxide 14 L (22-30) mmol/L BUN 26 H (7-17) mg/dL Creatinine 1.28 H (0.52-1.04) mg/dL Glucose 101 H (74-99) mg/dL Calcium 7.9 L (8.4-10.2) mg/dL Microbiology - Last 24 Hours (Table) 11/07/17 16:13 Urine Culture - Final Urine,Catheterized 11/07/17 13:12 Blood Culture - Preliminary Blood No Growth after 24 hours 11/07/17 12:48 Blood Culture - Preliminary Blood No Growth after 24 hours Assessment and Plan Assessment: Impression: 1 acute sepsis and septic shock, most likely secondary to urinary tract infection. 2 acute urinary tract infection 3 acute kidney injury secondary to sepsis. 4 acute right humerus fracture 5 multiple comorbidities including benign essential hypertension, diabetes, depression, chronic history of urinary retention, hypercholesterolemia. Recommendation: The patient was seen and evaluated by Dr. Grove. She is currently stable from the pulmonary and critical care standpoint. We'll continue with her current medications. We'll continue to follow. I, the cosigning physician, performed a history & physical examination of the patient. Lungs sounds are clear. Maintaining good O2 saturations in the 90s on room air. I discussed the assessment and plan of care with my nurse practitioner, Jazmyne Stone. I attest to the above note as dictated by her.
[2017-11-09] MEDS ORDERED: CEFEPIME 1 GM in SODIUM CHLORIDE 0.9% 50 ML IVPB SCH (21:00)
--- NOTE | 2017-11-09 21:12 | PN ---
PROGRESS NOTE DATE OF SERVICE: 11/09/2017. She is seen for followup for acute kidney injury. She is currently doing much better. Renal function continues to improve. PHYSICAL EXAMINATION: On examination today, blood pressure was 125/59, heart rate 79 per minute. Patient is afebrile. Examination of the heart S1, S2. Examination of the lungs bilateral breath sounds are heard. Abdomen is soft, nontender. Examination lower extremities shows edema 1+ bilateral upper extremities. Left arm is in sling. LAB: Show serum creatinine 1.28, sodium 139, potassium 3.9, CO2 at 14, hemoglobin 10.0 g/dL. ASSESSMENT: 1. Acute kidney injury, acute tubular necrosis, nonoliguric, currently improving. 2. Severe metabolic acidosis maintained on oral sodium bicarb. The metabolic acidosis is not significantly improved. I will switch the IV fluids to IV bicarb. 3. Status post fall and fracture of right humerus with large hematoma. 4. Chronic kidney disease secondary to nephrosclerosis. Creatinine 1.2 on 03/06/2017. PLAN: Start IV bicarb. Repeat labs in a.m.. MMODL / IJN: [id number] /
[2017-11-09] MEDS: DEXTROSE 5% IN WATER 1,000 ML with SODIUM BICARB (1 MEQ/ML) 150 ML IV SCH (22:22)
[2017-11-10] MEDS: HYDROcodone/APAP 10-325MG 1 EACH TAB PO PRN ×3 (03:49→21:55)
--- NOTE | 2017-11-10 05:08 | PN ---
PROGRESS NOTE DATE OF SERVICE: 11/09/2017. PRESENTING COMPLAINT: Tired. INTERVAL HISTORY: The patient presents with hypotensive shock, acute renal failure, UTI, was in the ICU on Levophed, now moved out to the medical floor. Feels weak and tired, somewhat shaky. Some pain in the upper back. Did tolerate a diet. REVIEW OF SYSTEMS: Done for constitutional, cardiovascular, GI, pulmonary, musculoskeletal; relevant findings as above. CURRENT MEDICATIONS: Current medications are reviewed, include IV cefepime. PHYSICAL EXAMINATION: On examination, temperature 98.3, pulse 79, respirations 16, blood pressure 125/59, pulse ox 97% on room air. GENERAL APPEARANCE: Lying in bed, tired-appearing. EYES: Pupils equal. Conjunctivae pale. HENT: External appearance of nose and ears normal. Oral cavity normal. NECK: JVD not raised. Mass not palpable. RESPIRATORY: Effort normal. Lungs are clear. CARDIOVASCULAR: First and second sounds normal. No edema. ABDOMEN: Soft, nontender. Liver and spleen not palpable. PSYCHIATRY: Awake, alert. EXTREMITIES: Right arm in a sling. Bruising in the upper extremity. INVESTIGATIONS: White count 8.1, BUN 26, creatinine , bicarb 14. ASSESSMENT: 1. Hypotensive shock, status post Levophed, now corrected off pressors. 2. Chronic anemia-related to probably renal failure. 3. Acute renal failure, severe secondary to acute tubular necrosis, improving. 4. Metabolic acidosis from renal failure. 5. Right humerus fracture secondary to fall for conservative management. 6. Acute urinary tract infection. Cultures came back negative. PLAN: Continue current medication and treatment plan. Will switch the patient to Keflex. Patient to continue on sodium bicarb. IV fluids to continue. MMODL / IJN: [id number] /
[2017-11-10 08:42] LABS: Calcium 7.9 mg/dL (8.4-10.2); Magnesium 1.8 mg/dL (1.6-2.3); Phosphorus 2.5 mg/dL (2.5-4.5); Potassium 3.4 mmol/L (3.5-5.1)
[2017-11-10 08:52] LABS: Basophils % (A) 0 %; Eosinophils # (A) 0.2 k/uL (0-0.7); Eosinophils % (A) 4 %; HCT 29.6 % (34.0-46.0); HGB 9.3 gm/dL (11.4-16.0); Hypochromasia Slight; Lymphocytes # (A) 0.9 k/uL (1.0-4.8); Lymphocytes % (A) 14 %; MCH 30.6 pg (25.0-35.0); MCHC 31.5 g/dL (31.0-37.0); Mean Platelet Volume 7.4; Monocytes # (A) 0.4 k/uL (0-1.0); Monocytes % (A) 6 %; Neutrophils # (A) 4.8 k/uL (1.3-7.7); Neutrophils % (A) 74 %; Platelet Count 242 k/uL (150-450); RBC 3.05 m/uL (3.80-5.40); RDW 14.1 % (11.5-15.5); WBC 6.5 k/uL (3.8-10.6)
[2017-11-10] MEDS: CEPHALEXIN 500 MG CAP PO SCH ×4 (09:25→21:51)
[2017-11-10] MEDS: buPROPion XL 150 MG TAB.ER.24H PO SCH (09:25)
[2017-11-10] MEDS: ATORVASTATIN 10 MG TAB PO SCH (09:25)
[2017-11-10] MEDS: DOCUSATE 100 MG CAP PO SCH ×2 (09:26→21:51)
[2017-11-10] MEDS: PANTOPRAZOLE 40 MG/10 ML VIAL IV SCH (09:26)
[2017-11-10] MEDS: SODIUM BICARBONATE TAB 650 MG TAB PO SCH ×4 (09:26→21:52)
--- NOTE | 2017-11-10 09:59 | P.PN ---
Subjective Patient is seen in follow-up for acute kidney injury. Renal function is improving with creatinine down to 1.1 today. Denies any chest pain or shortness of breath. Oral intake is fair. Hemodynamically stable. Vital signs are stable. General: The patient appeared well nourished and normally developed. HEENT: Head exam is unremarkable. Neck is without jugular venous distension. LUNGS: Lungs are clear to auscultation and percussion. Breath sounds decreased. HEART: Rate and Rhythm are regular. First and second heart sounds normal. No murmurs, rubs or gallops. ABDOMEN: Abdominal exam reveals normal bowel sounds. Non-tender and non- distended. No evidence of peritonitis. EXTREMITITES: No clubbing, cyanosis, or edema. Objective - Vital Signs Vital signs: Vital Signs Temp 97.2 F L 11/10/17 06:00 Pulse 73 11/10/17 06:00 Resp 20 11/10/17 06:00 BP 141/69 11/10/17 06:00 Pulse Ox 98 11/10/17 06:00 Intake & Output 11/09/17 11/10/17 11/10/17 18:59 06:59 18:59 Intake Total 450 300 Output Total 200 Balance 250 300 Weight 59 kg Intake: Oral 450 300 Output: Urine 200 Other: Voiding Method Bedpan Bedpan # Voids 3 # Bowel Movements 0 - Labs CBC & Chem 7: 11/10/17 07:35 11/10/17 07:35 Labs: Abnormal Lab Results - Last 24 Hours (Table) 11/10/17 11/10/17 Range/Units 07:35 07:35 RBC 3.05 L (3.80-5.40) m/uL Hgb 9.3 L (11.4-16.0) gm/dL Hct 29.6 L (34.0-46.0) % Lymphocytes # 0.9 L (1.0-4.8) k/uL Potassium 3.4 L (3.5-5.1) mmol/L Chloride 116 H (98-107) mmol/L Carbon Dioxide 16 L (22-30) mmol/L BUN 23 H (7-17) mg/dL Creatinine 1.10 H (0.52-1.04) mg/dL Calcium 7.9 L (8.4-10.2) mg/dL Microbiology - Last 24 Hours (Table) 11/07/17 13:12 Blood Culture - Preliminary Blood No Growth after 48 hours 11/07/17 12:48 Blood Culture - Preliminary Blood No Growth after 48 hours Assessment and Plan Plan: Assessment: 1. Nonoliguric acute kidney injury mostly prerenal secondary to hypotension. Improving. Creatinine down to 1.1 today. 2. Chronic kidney disease. Creatinine 1.2 in February 2017. Etiology is nephrosclerosis. 3. Status post fall with fracture of the right humerus. 4. Metabolic acidosis secondary to acute kidney injury. 5. Hypokalemia secondary to intracellular shifting from IV bicarb. Plan: Maintain isotonic sodium bicarbonate drip to be run at 50 mL an hour. Maintain oral sodium bicarbonate. Encourage oral intake. Replace potassium. 40 mEq today. Avoid nephrotoxic agents and hypotensive episodes. Repeat electrolytes in the morning.
[2017-11-10] MEDS ORDERED: POTASSIUM CHLORIDE ER 20 MEQ TAB.ER PO STA (10:01)
--- NOTE | 2017-11-10 13:29 | CDI ---
Last Revision, February 2017 Documentation Clarification Form Date: 11/10/2017 12:58:02 PM From: Ledy Olivarez RN, CCDS Admit Date: 11/06/2017 1:34:00 PM Patient Name: Dinesh Alamo Visit Number: [id number] Discharge Date: ATTENTION: The Clinical Documentation Specialists (CDI) and [facility] Coding Staff appreciate your assistance in clarifying documentation. Please respond to the clarification below the line at the bottom and electronically sign. The CDI & [facility] Coding staff will review the response and follow-up if needed. Please note: Queries are made part of the Legal Health Record. If you have any questions, please contact the author of this message via ITS. Miguel A Triplett MD 11/07/17 Pulmonary consult and ongoing documentation has Sepsis and Septic shock secondary to UTI 11/07/17 Your H/P and ongoing documentation has Hypotensive shock, acute urinary tract infection History/Risk Factors: diabetes, mellitus, Hypertension, Clinical Indicators: Present with symptoms of generalized weakness and was noted to have low blood pressure, pyuria, foul -smelling urine, burning sensation on urination. She required admission to ICU. WBC/Left Shift: (11/06) 9.8, 6.4, 14.6, 10.3 HGB 7.5 CR 3.0 Lactic acid: .08 UA: Leukocyte Esterase -Large, Urine bacteria-Moderate Blood cultures: No growth after 48 hours Urine culture Final (11/07) No growth after 18 hours Vitals signs on admission: 90/45 96 18 99.1 98 % RA, 85/50 89 18 Chest x-ray: No acute intrathoracic disease Treatment: Norepinephine drip Maxipime IV ( now Keflex po) Rocephin IV ( now DC) IV Fluids bolus Monitor labs Pulmonary Consult: Presentation was a urinary tract infection and sepsis with septic shock In your professional opinion, please clarify if these findings signify one of the following conditions, whether the condition is POA, and cause, if known: Condition Sepsis ruled in Sepsis ruled out SIRS, without underlying infectious process Sepsis Severe Sepsis Septic Shock Other, please specify Unable to determine Present on Admission: Yes No Link or clarify if there is associated (due to/with): Organ failure Shock SIRS Criteria..2 or more of the following may indicate SIRS: Temperature < 96.8F (36C) or > 101.0F (38.3C) Heart Rate > 90 bpm Respiratory Rate > 20 breaths/min or PaCO2 < 32 mmHg White Blood Cell Count > 12,000 or < 4,000 cells/mm3 or > 10% bands Lactate >2.0 mmol/L (>4.0 is equivalent to septic shock) Please continue to document in your progress notes and discharge summary in order to capture severity of illness and risk of mortality. Include clinical findings that support your diagnosis. MTDD
[2017-11-10] MEDS: SODIUM CHLORIDE 0.9% 1,000 ML IV SCH (14:29)
--- NOTE | 2017-11-10 15:05 | P.PN ---
Subjective Progress Note Date: 11/10/17 Principal diagnosis: Acute septic shock secondary to urinary tract infection This is a 66-year-old female, presented to the ER with mostly symptoms of generalized weakness. Her symptoms have been going on for the last 4 days. As a matter of fact she fell 3 days prior to her presentation, and she sustained a fracture of her proximal right humerus. Patient was seen in the ER, and she was given a referral [facility] her humerus fracture. Patient has not made an appointment yet. She presented yesterday mostly with recurrent episodes of falling, weakness, unable to be steady on her feet, and she was noted to have low blood pressure. Low hemoglobin of 7.5. Evidence of bacteriuria and pyuria, normal lactic acid, acute kidney injury picture, with BUN of 51 and creatinine of 3.0. Patient also noted to have leukocytosis. And she has been complaining of fever intermittently over the last 4 days. She also had symptoms of foul-smelling urine, and burning sensation on urination. Patient was admitted, given fluid boluses about 3 L. She was also transfused with 1 unit of packed RBC placed on norepinephrine, and she is presently on 4 g of norepinephrine. Patient has made a significant improvement over the last 24 hours, her blood pressure remains marginal, her urine output is now adequate , urine cultures and blood cultures are pending. Patient was empirically started on antibiotics. And she is now on cefepime. Patient is now comfortable , in no distress, she is alert oriented 3, and she denies any headaches, no blurred vision, no dizziness. Denies any chest pain, no shortness of breath no cough no wheezing. Denies any nausea vomiting or abdominal pain. She had urinary symptoms as noted above. And she had neurological symptoms of mostly weakness and unable to walk steadily on her feet for the last 4 days. Patient is also complaining of pain over the right humerus secondary to recent fall and fracture. According to the she had a similar episode years ago, and she required admission to the ICU and her main presentation was a urinary tract infection and sepsis. Reevaluated today on 11/08/2017, patient is hemodynamically stable, off norepinephrine since 5:00 this morning. Blood pressure is stable. Patient is feeling better, relatively asymptomatic. WBC count is 5.7, hemoglobin is 9.8 electrolytes are relatively normal continues to have low bicarb and hyperchloremic metabolic acidosis. BUN is down to 33, creatinine is down to 1.59. Urine culture is pending. Patient was seen by orthopedics, and recommended that her right upper extremity remains in a sling, and should follow -up with him on outpatient basis. The patient is seen today 11/09/2017 in follow-up on the regular medical floor. She is currently awake. In no acute distress. Maintaining good O2 saturations in the high 90s on room air. She's been afebrile. Hemodynamically stable. Blood and urine cultures reveal no growth. White count 8.1. Hemoglobin 10.0. Creatinine 1.28. The patient is seen again today 11/10/2017 in follow-up on the regular medical floor. She is currently sitting up in a chair at the bedside. She is awake and alert in no acute distress. She has no pulmonary complaints. She does have some ongoing pain in her right upper extremity back and knee. She is maintaining good O2 saturations in the upper 90s on room air. She's been afebrile. Hemodynamically stable. Blood culture reveals no growth to date. Urine culture reveals no growth. White count 6.5. Hemoglobin 9.3. Creatinine 1.10. Bicarb 16. She remains on a bicarb drip at 50 mL per hour along with sodium bicarbonate tablets. Nephrology is following. Objective - Vital Signs Vital signs: Vital Signs Temp 97.2 F L 11/10/17 06:00 Pulse 73 11/10/17 06:00 Resp 20 11/10/17 06:00 BP 141/69 11/10/17 06:00 Pulse Ox 98 11/10/17 06:00 Intake & Output 11/09/17 11/10/17 11/10/17 18:59 06:59 18:59 Intake Total 450 300 Output Total 200 Balance 250 300 Weight 59 kg Intake: Oral 450 300 Output: Urine 200 Other: Voiding Method Bedpan Bedpan Bedpan Incontinent # Voids 3 1 # Bowel Movements 0 - Exam Physical Exam: Revealed a 66-year-old female in no distress, very pleasant. Head: Atraumatic, normocephalic. HEENT:[Neck is supple.] [No neck masses.] [No thyromegaly.] [No JVD.] PERRLA, EOMI. No icterus. Chest: [Clear throughout, no crackles, no rhonchi, no wheezes.] Cardiac Exam: [Normal S1 and S2, no S3 gallop, no murmur.] Abdomen: [Soft, nontender, no megaly, no rebound, no guarding, normal bowel sounds.] Extremities: [No clubbing, no edema, no cyanosis.] There is evidence of ecchymosis noted on the proximal humerus area, and the right upper extremity is in a sling as recommended by orthopedics Neurological Exam: [No focal neurologic deficit.] Alert oriented 3. Lymphatics: No lymphadenopathy. Musculoskeletal: Limited range of motion in the right upper extremity related to recent trauma otherwise unremarkable. Right upper extremity is in a sling. - Labs CBC & Chem 7: 11/10/17 07:35 11/10/17 07:35 Labs: Abnormal Lab Results - Last 24 Hours (Table) 11/10/17 11/10/17 Range/Units 07:35 07:35 RBC 3.05 L (3.80-5.40) m/uL Hgb 9.3 L (11.4-16.0) gm/dL Hct 29.6 L (34.0-46.0) % Lymphocytes # 0.9 L (1.0-4.8) k/uL Potassium 3.4 L (3.5-5.1) mmol/L Chloride 116 H (98-107) mmol/L Carbon Dioxide 16 L (22-30) mmol/L BUN 23 H (7-17) mg/dL Creatinine 1.10 H (0.52-1.04) mg/dL Calcium 7.9 L (8.4-10.2) mg/dL Microbiology - Last 24 Hours (Table) 11/07/17 13:12 Blood Culture - Preliminary Blood No Growth after 48 hours 11/07/17 12:48 Blood Culture - Preliminary Blood No Growth after 48 hours Assessment and Plan Assessment: Impression: 1 acute sepsis and septic shock, most likely secondary to urinary tract infection. Recovered. 2 acute urinary tract infection 3 acute kidney injury secondary to sepsis. 4 acute right humerus fracture 5 multiple comorbidities including benign essential hypertension, diabetes, depression, chronic history of urinary retention, hypercholesterolemia. Recommendation: The patient was seen and evaluated by Dr. Grove. She is currently stable from the pulmonary and critical care standpoint. We'll continue with her current medications. We'll see her on as-needed basis. I, the cosigning physician, performed a history & physical examination of the patient. Lungs sounds are clear. Maintaining good O2 saturations in the 90s on room air. I discussed the assessment and plan of care with my nurse practitioner, Jazmyne Stone. I attest to the above note as dictated by her.
[2017-11-10] MEDS: DEXTROSE 5% IN WATER 1,000 ML with SODIUM BICARB (1 MEQ/ML) 150 ML IV SCH (21:58)
[2017-11-10] MEDS: ALPRAZolam 0.25 MG TAB PO PRN (22:27)
[2017-11-11] MEDS: HYDROcodone/APAP 10-325MG 1 EACH TAB PO PRN ×2 (04:58→11:06)
[2017-11-11 06:04] VITALS: BP 125/77; PULSE 76; RESP 18; TEMP 98.2
[2017-11-11] MEDS: ALPRAZolam 0.25 MG TAB PO PRN (06:53)
--- NOTE | 2017-11-11 07:29 | PN ---
PROGRESS NOTE DATE OF SERVICE: 11/10/2017 PRESENT COMPLAINT: Tired. INTERVAL HISTORY: This patient presents hypotensive and possibly septic shock and acute renal failure, UTI, on the medical floor. Somewhat weak and tired. Oral intake is getting better. Has a right humerus fracture. REVIEW OF SYSTEMS: Done for constitutional, cardiovascular, GI, pulmonary, musculoskeletal and relevant findings as above. CURRENT MEDICATIONS: Reviewed that include p.o. Keflex and IV fluids. EXAMINATION: VITAL SIGNS: Temperature 98.5, pulse 76, respiratory rate 17, blood pressure 152/76, pulse ox 96 percent on room air. GENERAL APPEARANCE: Lying in bed, awake, tired-appearing. EYES: Pupils are equal. Conjunctivae pale. HEENT: External appearance of nose and ears normal. Oral cavity normal. NECK: JVD not raised. Mass not palpable. RESPIRATORY: Effort normal. LUNGS are clear. CARDIOVASCULAR: 1st and 2nd sounds normal. No edema. ABDOMEN: Soft, nontender. Liver and spleen not palpable. PSYCHIATRY: Awake, answering questions. EXTREMITIES: Right upper extremity in a dressing. INVESTIGATIONS: White count 6.5, potassium 3.4, BUN 23, creatinine 1.10. ASSESSMENT: 1. Hypotensive and septic shock, status post Levophed. 2. Chronic anemia related to renal failure. 3. Acute renal failure, secondary to acute tubular necrosis/prerenal continues to improve. 4. Metabolic acidosis from renal failure. 5. Right humerus fracture secondary to fall for conservative management. 6. Acute urinary tract infection. PLAN: Continue current medication and treatment plan. Patient is already on oral Lasix. Hopefully patient can be discharged to the [facility] tomorrow. We will keep the patient on sodium bicarb tablets. MMODL / IJN: [id number] /
[2017-11-11 07:53] LABS: Basophils % (A) 0 %; Eosinophils # (A) 0.3 k/uL (0-0.7); Eosinophils % (A) 4 %; HCT 28.2 % (34.0-46.0); HGB 8.9 gm/dL (11.4-16.0); Lymphocytes # (A) 1.1 k/uL (1.0-4.8); Lymphocytes % (A) 16 %; MCH 30.3 pg (25.0-35.0); MCHC 31.7 g/dL (31.0-37.0); MCV 95.4 fL (80.0-100.0); Mean Platelet Volume 7.3; Monocytes # (A) 0.4 k/uL (0-1.0); Monocytes % (A) 7 %; Neutrophils # (A) 4.8 k/uL (1.3-7.7); Neutrophils % (A) 72 %; Platelet Count 281 k/uL (150-450); RBC 2.95 m/uL (3.80-5.40); RDW 14.1 % (11.5-15.5); WBC 6.6 k/uL (3.8-10.6)
[2017-11-11 08:06] LABS: Calcium 7.6 mg/dL (8.4-10.2); Magnesium 1.8 mg/dL (1.6-2.3); Phosphorus 1.9 mg/dL (2.5-4.5); Potassium 3.6 mmol/L (3.5-5.1)
[2017-11-11] MEDS: CEPHALEXIN 500 MG CAP PO SCH ×2 (08:56→13:22)
[2017-11-11] MEDS: SODIUM CHLORIDE 0.9% 1,000 ML IV SCH (08:56)
[2017-11-11] MEDS: SODIUM BICARBONATE TAB 650 MG TAB PO SCH (08:57)
[2017-11-11] MEDS: buPROPion XL 150 MG TAB.ER.24H PO SCH (08:57)
[2017-11-11] MEDS: PANTOPRAZOLE 40 MG/10 ML VIAL IV SCH (08:57)
[2017-11-11] MEDS: ATORVASTATIN 10 MG TAB PO SCH (08:57)
[2017-11-11] MEDS: DOCUSATE 100 MG CAP PO SCH (08:57)
--- NOTE | 2017-11-11 09:17 | P.PN ---
Subjective Patient is seen in follow-up for acute kidney injury. Renal function is improving with creatinine down to 0.87 today. Denies any chest pain or shortness of breath. Oral intake is fair. Hemodynamically stable. Vital signs are stable. General: The patient appeared well nourished and normally developed. HEENT: Head exam is unremarkable. Neck is without jugular venous distension. LUNGS: Lungs are clear to auscultation and percussion. Breath sounds decreased. HEART: Rate and Rhythm are regular. First and second heart sounds normal. No murmurs, rubs or gallops. ABDOMEN: Abdominal exam reveals normal bowel sounds. Non-tender and non- distended. No evidence of peritonitis. EXTREMITITES: No clubbing, cyanosis, or edema. Objective - Vital Signs Vital signs: Vital Signs Temp 98.2 F 11/11/17 06:03 Pulse 76 11/11/17 06:03 Resp 18 11/11/17 06:03 BP 125/77 11/11/17 06:03 Pulse Ox 96 11/11/17 06:03 Intake & Output 11/10/17 11/11/17 11/11/17 18:59 06:59 18:59 Other: Voiding Method Bedpan Bedpan Incontinent Incontinent # Voids 1 4 # Bowel Movements 1 - Labs CBC & Chem 7: 11/11/17 07:37 11/11/17 07:37 Labs: Abnormal Lab Results - Last 24 Hours (Table) 11/11/17 11/11/17 Range/Units 07:37 07:37 RBC 2.95 L (3.80-5.40) m/uL Hgb 8.9 L (11.4-16.0) gm/dL Hct 28.2 L (34.0-46.0) % Chloride 113 H (98-107) mmol/L Carbon Dioxide 21 L (22-30) mmol/L BUN 19 H (7-17) mg/dL Calcium 7.6 L (8.4-10.2) mg/dL Phosphorus 1.9 L (2.5-4.5) mg/dL Microbiology - Last 24 Hours (Table) 11/07/17 13:12 Blood Culture - Preliminary Blood No Growth after 72 hours 11/07/17 12:48 Blood Culture - Preliminary Blood No Growth after 72 hours Assessment and Plan Plan: Assessment: 1. Nonoliguric acute kidney injury mostly prerenal secondary to hypotension. Improving. Creatinine down to 0.87 today. 2. Chronic kidney disease. Creatinine 1.2 in February 2017. Etiology is nephrosclerosis. 3. Status post fall with fracture of the right humerus. 4. Metabolic acidosis secondary to acute kidney injury. Improved. 5. Hypokalemia secondary to intracellular shifting from IV bicarb. 6. Hypophosphatemia secondary to poor oral intake and intracellular shifting from IV bicarb. Plan: Hep-Lock IV fluids. I will decrease oral sodium bicarbonate 650 mg twice daily. Encourage oral intake. Replace potassium and phosphorus. 20 mmol of potassium phosphate IV today. Avoid nephrotoxic agents and hypotensive episodes. Repeat electrolytes in the morning.
[2017-11-11] MEDS ORDERED: Phosphorus Replacement Protoco 1 EACH MISC MISCELLANE PRN (10:00)
[2017-11-11] MEDS ORDERED: ACETAMINOPHEN TAB 325 MG TAB PO PRN (10:09)
[2017-11-11] MEDS: POTASSIUM PHOSPHATE 10 MMOL in SODIUM CHLORIDE 0.9% 250 ML IV SCH ×2 (11:07→13:21)
--- NOTE | 2017-11-11 14:17 | DS ---
DISCHARGE SUMMARY DATE OF ADMISSION: 11/06/2017 DATE OF DISCHARGE: 11/11/2017 FINAL DIAGNOSES: 1. Septic shock and hypertensive shock from UTI, present on admission, requiring pressure support. 2. Acute renal failure secondary to ATN, prerenal. 3. Metabolic acidosis from renal failure. 4. Right humerus fracture secondary to fall. 5. Acute urinary tract infection, probably from cystitis. 6. Metabolic acidosis from acute renal failure. 7. Chronic normocytic anemia, cause undetermined. CONSULTATION: 1. Dr. Hamlin from Nephrology. 2. Dr. Grove from Pulmonary and Critical Care. 3. Dr. Benton from Orthopedics. HOSPITAL COURSE: This patient presented with septic shock, hypotensive, admitted to the ICU, was put on IV fluids and Levophed. Patient also very drowsy, tired. Patient's MS Contin has been discontinued. Patient has been requiring only occasional pain medications. Overall doing better. Patient's creatinine did improve from 3 back down to normal at 0.87. Right arm is in a sling. Seen by Dr. Benton who will see the patient as an outpatient. Patient's bicarb was limited, did come up to 21. PHYSICAL EXAMINATION: Temperature 98.2, pulse 96, respirations 18, blood pressure 125/77, pulse ox 96% on room air. LUNGS: Fair entry. CARDIOVASCULAR: First and second sounds normal. PSYCH: AO x3. Some bruising in the right upper extremity. DISCHARGE MEDICATIONS: 1. Lipitor Tuesday, Tuesday and Tuesday 10 mg. 2. Prozac 20 mg a day. 3. Ditropan 5 mg p.o. b.i.d. 4. Wellbutrin XL 150 mg p.o. daily. 5. Xanax 0.25 p.o. t.i.d. p.r.n. 6. Tylenol 650 mg q. 6 p.r.n. 7. Keflex 100 mg p.o. q.i.d. 8 tablets. 8. N[place]away 10 one tablet q.i.d. p.r.n. 9. Senokot S 1 tablet p.o. daily. 10.Sodium bicarb 650 mg p.o. b.i.d. for 5 days. DISPOSITION: [facility]. Follow up with Dr. Kowalski at [facility]. Follow up with Dr. Bennie Orta after DC from [facility]. Follow up with Dr. Benton in 1 week. Right arm in a sling and fall precautions. Discussion and discharge planning more than 35 minutes. MMODL / IJN: [id number] /
[2017-11-11] MEDS ORDERED: SODIUM BICARBONATE TAB 650 MG TAB PO SCH (21:00)
--- NOTE | 2017-11-15 08:07 | CDI ---
Last Revision, February 2017 Documentation Clarification Form Date: 11/15/17 From: Alem Shiva Ruby Wing, Animal Husbandry Technician Hours-8:30 am & 5 pm MTorin Admit Date: 11/06/2017 1:34:00 PM Patient Name: Dinesh Alamo Visit Number: [id number] Discharge Date: 11/11/17 ATTENTION: The Clinical Documentation Specialists (CDI) and [facility] Coding Staff appreciate your assistance in clarifying documentation. Please respond to the clarification below the line at the bottom and electronically sign. The CDI & [facility] Coding staff will review the response and follow-up if needed. Please note: Queries are made part of the Legal Health Record. If you have any questions, please contact the author of this message via ITS. Ankit Johnson, DO History/Risk Factors: septic shock due to cystitis Current BUN: 51, 43, 33, 26, 23, 19 Current CR: 3.00, 2.10, 1.59, 1.28, 1.10, 0.87 Current GFR: 16, 24, 34, 44, 53, 70 Patients Baseline: BUN/CR/GFR: Cr 1.2 in February 2017 Treatment: sodioum bicarb 650 4 x daily, IV fluids 725/hr In order to capture the severity of condition, please clarify if the condition signifies: CKD ruled out CKD Stage 1 (GFR > 90) CKD Stage 2 (GFR 60-89) CKD Stage 3 (GFR 30-59) CKD Stage 4 (GFR 15-29) CKD Stage 5 (GFR <15) ESRD Other, please specify Unable to determine Please continue to document in your progress notes and discharge summary in order to capture severity of illness and risk of mortality. Include clinical findings that support your diagnosis. MTDD
[2017-11-16 07:34] LABS: Glucose,Whole Blood 130 mg/dL (75-99)
--- NOTE | 2017-11-27 14:07 | DS ---
DISCHARGE SUMMARY ADDENDUM: To discharge summary DATE OF ADMISSION: November 06, 2017. DATE OF DISCHARGE: November 11, 2017. FINAL DIAGNOSES: 1. Septic shock and sepsis and hypotensive shock from urinary tract infection from cystitis, present on admission. MMODL / IJN: [id number] /
== END 2017-11-11 15:30 | DRG 871 ==
LOC: EC 11:22 → 6SEL 13:34 → 6ICU 15:21 → 4MS4W 11-08 21:16
PROVIDERS: ADMIT Hospitalist; ATTEND Hospitalist
PROC: 30230N1 Transfusion of Nonautologous Red Blood Cells into Peripheral Vein, Open Approach (ICD-10-PCS; principal; 2017-11-06)
DX: A41.9 Sepsis, unspecified organism (principal); R65.21 Severe sepsis with septic shock; N17.0 Acute kidney failure with tubular necrosis; S42.201A Unspecified fracture of upper end of right humerus, initial encounter for closed fracture; E87.2 Acidosis; E11.22 Type 2 diabetes mellitus with diabetic chronic kidney disease; E11.40 Type 2 diabetes mellitus with diabetic neuropathy, unspecified; N30.90 Cystitis, unspecified without hematuria; D64.9 Anemia, unspecified; R32 Unspecified urinary incontinence; F32.9 Major depressive disorder, single episode, unspecified; F41.9 Anxiety disorder, unspecified; G89.29 Other chronic pain; M54.5 Low back pain; G43.909 Migraine, unspecified, not intractable, without status migrainosus; E78.00 Pure hypercholesterolemia, unspecified; R33.9 Retention of urine, unspecified; R80.9 Proteinuria, unspecified; R29.6 Repeated falls; Z79.891 Long term (current) use of opiate analgesic; Z79.899 Other long term (current) drug therapy; Z87.891 Personal history of nicotine dependence; Z98.84 Bariatric surgery status; Z90.710 Acquired absence of both cervix and uterus; Z88.5 Allergy status to narcotic agent; Z88.0 Allergy status to penicillin; Z88.2 Allergy status to sulfonamides; W01.0XXA Fall on same level from slipping, tripping and stumbling without subsequent striking against object, initial encounter; Y92.009 Unspecified place in unspecified non-institutional (private) residence as the place of occurrence of the external cause; Z83.3 Family history of diabetes mellitus; E83.39 Other disorders of phosphorus metabolism; E87.6 Hypokalemia
CPT/HCPCS: 36415; 70450; 71045; 80048; 80053; 81001; 82272; 82550; 82553; 83036; 83605; 83735; 84100; 84439; 84443; 84481; 84484; 85025; 85610; 85730; 86850; 86900; 86901; 86920; 87040; 87086; 96361; 96374; 96375; 99291

== ENCOUNTER → 2017-12-07 | Outpatient (CLI) | payer MEDICARE ==
--- NOTE | 2017-12-07 08:47 | CT ---
EXAMINATION TYPE: CT shoulder RT wo con DATE OF EXAM: 12/07/2017 COMPARISON: Radiographs 11/03/2017 HISTORY: 67-year-old female follow up for fracture TECHNIQUE: Contiguous axial scanning of the right shoulder without IV contrast. Coronal and sagittal reconstructions performed. CT DLP: 175.9 mGycm Automated exposure control for dose reduction was used. FINDINGS: Redemonstrated is the patient's severely impacted proximal humeral fracture. The predominant componen t is a surgical neck fracture which is impacted by 2.6 cm with 9 mm of anterior displacement. There i s anterior apex angulation. The humeral head component is contiguous with the bicipital groove which is a connected shard of bone measuring 3.7 cm long, refer to sagittal image 12. There is comminution along the posterior superior aspect of the greater tuberosity with fracture frag ments displaced into the adjacent deltoid and lateral shelf measuring up to 1.2 cm. Bony irregularity at the more anterior greater tuberosity could be secondary to areas of partial tearing or tendinosis . There is diffuse soft tissue contusion in moderate to large joint effusion. Mild periosteal callus formation is noted. Minimal fatty streaks in the rotator cuff musculature without significant fatty atrophy. AC joint is intact with mild degenerative change. Inferior spurring from the distal clavicle contacts the underlying cuff. No os acromiale. Visualized right lung appears clear. The glenohumeral joint is intact. IMPRESSION: 1. 2 PORT PROXIMAL HUMERAL FRACTURE WITH A SEVERELY IMPACTED SURGICAL NECK COMPONENT (IMPACTION OF 2. 6 CM). THERE IS ALSO 9 MM OF ANTERIOR DISPLACEMENT AND SLIGHT ANTERIOR APEX ANGULATION . 2. THERE IS COMMINUTION ALONG THE POSTERIOR GREATER TUBEROSITY WITH FRAGMENTS MEASURING UP TO 1.2 CM. 3. MILD PERIOSTEAL CALLUS SUGGESTS EARLY HEALING CHANGE. 4. DIFFUSE SOFT TISSUE CONTUSION AND MODERATE TO LARGE JOINT EFFUSION.
== END | disposition home or self-care (01) ==
LOC: RADCTMAIN 08:11
PROVIDERS: ATTEND Orthopaedic Surgery
DX: S42.291D Other displaced fracture of upper end of right humerus, subsequent encounter for fracture with routine healing (principal); E10.9 Type 1 diabetes mellitus without complications

== ENCOUNTER 2017-12-11 18:09 | Emergency (ER) | payer MEDICARE ==
[2017-12-11] MEDS ORDERED: SODIUM CHLORIDE 0.9% 1,000 ML IV ONE (18:34)
[2017-12-11] MEDS ORDERED: MORPHINE SULFATE 4 MG/ML SYRINGE IVP STA (18:34)
--- NOTE | 2017-12-11 18:38 | ED ---
General Adult HPI - General Chief complaint: Nausea/Vomiting/Diarrhea Stated complaint: Diarrhea Time Seen by Provider: 12/11/17 18:24 Source: patient, RN notes reviewed, old records reviewed Mode of arrival: wheelchair Limitations: no limitations - History of Present Illness Initial comments: 67-year-old female presents for evaluation of diarrhea. Patient has had approximately 15 episodes of diarrhea over the past 24 hours. Symptoms initially began after drinking some lemonade. Patient does have history of gastric bypass in the remote past. She denies nausea vomiting. Denies fever. Denies significant abdominal pain. Diarrhea is somewhat watery. According to her she had a recent hospital admission for urinary tract infection and was on antibiotics. No other pain complaints. No fever or chills. - Related Data Home Medications Medication Instructions Recorded Confirmed FLUoxetine HCL [PROzac] 20 mg PO DAILY 11/06/17 12/11/17 Previous Rx's Medication Instructions Recorded HYDROcodone/APAP 10-325MG [[place] 1 tab PO QID PRN #10 tab 11/11/17 10-325] Allergies Allergy/AdvReac Type Severity Reaction Status Date / Time meperidine [From Demerol] Allergy Unknown Verified 12/11/17 18:17 Sulfa (Sulfonamide Allergy Unknown Verified 12/11/17 18:17 Antibiotics) Penicillins AdvReac Shakiness Verified 12/11/17 18:17 Review of Systems ROS Statement: Those systems with pertinent positive or pertinent negative responses have been documented in the HPI. ROS Other: All systems not noted in ROS Statement are negative. Past Medical History Past Medical History: Diabetes Mellitus, Hypertension, Neurologic Disorder Additional Past Medical History / Comment(s): NEUROPATHY, MIGRAINES, fractured right shoulder History of Any Multi-Drug Resistant Organisms: None Reported Past Surgical History: Bariatric Surgery, Bladder Surgery, Hysterectomy Additional Past Surgical History / Comment(s): ORAL SURGERY. COLONOSCOPY. LAP BAND THEN HAD BARIATRIC SURGERY; bladder surgery may have been for a benign cyst but is not sure Past Anesthesia/Blood Transfusion Reactions: No Reported Reaction Past Psychological History: Anxiety, Depression Smoking Status: Never smoker Past Alcohol Use History: None Reported Past Drug Use History: None Reported - Past Family History Mother Family Medical History: Diabetes Mellitus Father Family Medical History: CVA/TIA, Diabetes Mellitus General Exam Limitations: no limitations General appearance: alert, in no apparent distress Head exam: Present: atraumatic, normocephalic Eye exam: Present: normal appearance, PERRL ENT exam: Present: mucous membranes dry Neck exam: Present: normal inspection, tenderness Respiratory exam: Present: normal lung sounds bilaterally. Absent: respiratory distress Cardiovascular Exam: Present: regular rate, normal rhythm GI/Abdominal exam: Present: soft. Absent: distended, tenderness, guarding Extremities exam: Present: normal inspection, normal capillary refill. Absent: pedal edema Neurological exam: Present: alert, oriented X3, CN II-XII intact. Absent: motor sensory deficit Psychiatric exam: Present: normal affect, normal mood Skin exam: Present: warm, dry, intact. Absent: cyanosis, diaphoretic Course Vital Signs 12/11/17 12/11/17 12/11/17 18:13 19:52 20:05 Temperature 97.4 F L Pulse Rate 89 77 Respiratory 16 16 18 Rate Blood Pressure 133/81 132/63 O2 Sat by Pulse 97 100 Oximetry 12/11/17 20:45 Temperature 98.3 F Pulse Rate 70 Respiratory 16 Rate Blood Pressure 143/63 O2 Sat by Pulse 98 Oximetry Medical Decision Making - Medical Decision Making 67-year-old female presenting with multiple episodes of diarrhea after drinking some lemonade. History is concerning for dumping syndrome as patient is status post bariatric surgery. However she did have some recent antibiotics and there is suspicion for C. diff. Laboratory studies obtained, normal white blood cell count, stable hemoglobin, electrolytes reveal chloride of 111 which patient has had elevated chloride in the past and a CO2 of 17, patient is also had low CO2 in the past this may be secondary to diarrhea. Creatinine stable for this patient. Patient is very eager for discharge, she is unable to give a stool sample. Symptoms are completely resolved with 4 mg morphine. She will return with worsening or changing symptoms. If symptoms persist she will provide stool sample for her primary care physician. - Lab Data Result diagrams: 12/11/17 18:53 12/11/17 18:53 Lab Results 12/11/17 12/11/17 Range/Units 18:53 18:53 WBC 7.8 (3.8-10.6) k/uL RBC 3.70 L (3.80-5.40) m/uL Hgb 11.3 L (11.4-16.0) gm/dL Hct 35.3 (34.0-46.0) % MCV 95.3 (80.0-100.0) fL MCH 30.5 (25.0-35.0) pg MCHC 32.1 (31.0-37.0) g/dL RDW 14.7 (11.5-15.5) % Plt Count 356 (150-450) k/uL Neutrophils % 69 % Lymphocytes % 25 % Monocytes % 3 % Eosinophils % 1 % Basophils % 0 % Neutrophils # 5.4 (1.3-7.7) k/uL Lymphocytes # 1.9 (1.0-4.8) k/uL Monocytes # 0.3 (0-1.0) k/uL Eosinophils # 0.1 (0-0.7) k/uL Basophils # 0.0 (0-0.2) k/uL Sodium 140 (137-145) mmol/L Potassium 4.4 (3.5-5.1) mmol/L Chloride 111 H (98-107) mmol/L Carbon Dioxide 17 L (22-30) mmol/L Anion Gap 12 mmol/L BUN 28 H (7-17) mg/dL Creatinine 1.07 H (0.52-1.04) mg/dL Est GFR (CKD-EPI)AfAm 62 (>60 ml/min/1.73 sqM) Est GFR (CKD-EPI)NonAf 54 (>60 ml/min/1.73 sqM) Glucose 100 H (74-99) mg/dL Calcium 9.1 (8.4-10.2) mg/dL Magnesium 2.0 (1.6-2.3) mg/dL Total Bilirubin 0.3 (0.2-1.3) mg/dL AST 19 (14-36) U/L ALT 17 (9-52) U/L Alkaline Phosphatase 109 (38-126) U/L Total Protein 6.1 L (6.3-8.2) g/dL Albumin 3.3 L (3.5-5.0) g/dL Disposition Clinical Impression: Dumping syndrome Disposition: HOME SELF-CARE Condition: Good Instructions: Acute Diarrhea (ED) Is patient prescribed a controlled substance at d/c from ED?: No Referrals: Alejandro Navas MD [Primary Care Provider] - 1-2 days Time of Disposition: 20:58
[2017-12-11 19:26] LABS: Basophils % (A) 0 %; Eosinophils # (A) 0.1 k/uL (0-0.7); Eosinophils % (A) 1 %; HCT 35.3 % (34.0-46.0); HGB 11.3 gm/dL (11.4-16.0); Lymphocytes # (A) 1.9 k/uL (1.0-4.8); Lymphocytes % (A) 25 %; MCH 30.5 pg (25.0-35.0); MCHC 32.1 g/dL (31.0-37.0); MCV 95.3 fL (80.0-100.0); Mean Platelet Volume 8.3; Monocytes # (A) 0.3 k/uL (0-1.0); Monocytes % (A) 3 %; Neutrophils # (A) 5.4 k/uL (1.3-7.7); Neutrophils % (A) 69 %; Platelet Count 356 k/uL (150-450); RDW 14.7 % (11.5-15.5); WBC 7.8 k/uL (3.8-10.6)
[2017-12-11 19:40] LABS: Albumin 3.3 g/dL (3.5-5.0); Calcium 9.1 mg/dL (8.4-10.2); Potassium 4.4 mmol/L (3.5-5.1); Total Bilirubin 0.3 mg/dL (0.2-1.3); Total Protein 6.1 g/dL (6.3-8.2)
[2017-12-11 20:46] VITALS: BP 143/63; PULSE 70; RESP 16; TEMP 98.3
== END 2017-12-11 21:08 | disposition home or self-care (01) ==
LOC: EC 18:09
DX: K91.1 Postgastric surgery syndromes (principal); F32.9 Major depressive disorder, single episode, unspecified; F41.9 Anxiety disorder, unspecified; Z88.0 Allergy status to penicillin; Z88.2 Allergy status to sulfonamides; Z88.5 Allergy status to narcotic agent; Z79.899 Other long term (current) drug therapy; Z98.84 Bariatric surgery status
CPT/HCPCS: 99284; 96374; 96361; 36415; 80053; 83735; 85025; J2270

== ENCOUNTER → 2018-01-20 | Outpatient (CLI) | payer MEDICARE ==
--- NOTE | 2018-01-20 08:17 | CT ---
EXAMINATION TYPE: CT abdomen pelvis wo con DATE OF EXAM: 01/20/2018 COMPARISON: None HISTORY: Bilateral kidney stones, hydronephrosis CT DLP: 335.6 mGycm Examination of the solid and hollow viscera is limited given the lack of contrast. FINDINGS: LUNG BASES: No evidence for nodule. No evidence for infiltrate. There is evidence of cardiomegaly. LIVER/GB: Cholecystectomy clips. No space-occupying hepatic lesion. PANCREAS: No pancreatic mass identified. No inflammatory process seen. SPLEEN: No evidence for splenomegaly. No intrasplenic lesions seen. ADRENALS: No adrenal nodules identified. No evidence for thickening. KIDNEYS: Lower pole staghorn-like calculus left kidney measures 2 cm in length. Additional calculus r enal pelvis on the left measures 7.4 mm. There is a right renal pelvic calculus which measures 9.6 mm x 1.6 cm. Additional smaller calculi lower pole right kidney. Atrophic changes of the right kidney w ith mild cortical thinning on the left. Right-sided hydronephrosis versus Parapelvic cysts. No left-s ided hydronephrosis. Urinary bladder is grossly unremarkable. BOWEL: Appendix not clearly visualized. No evidence of bowel obstruction. No inflammatory process. Mo derate fecal stasis. Lymph nodes: No evidence for adenopathy greater than 1 cm. Abdominal aorta: Atheromatous changes seen. No evidence for aneurysm. Genital organs: Hysterectomy changes noted. Other: No significant abnormality. IMPRESSION: 1. Bilateral nephrolithiasis as noted. 2. Right-sided hydronephrosis and/or parapelvic cysts.
== END | disposition home or self-care (01) ==
LOC: RADCTMAIN 07:49
PROVIDERS: ATTEND Urology
DX: N13.2 Hydronephrosis with renal and ureteral calculous obstruction (principal); N28.1 Cyst of kidney, acquired
CPT/HCPCS: 74176

== ENCOUNTER 2018-05-15 11:06 | Emergency (ER) | payer MEDICARE ==
[2018-05-15 11:12] VITALS: TEMP 97.9
[2018-05-15] MEDS ORDERED: SODIUM CHLORIDE 0.9% 1,000 ML IV STA (11:35)
[2018-05-15 12:02] LABS: Basophils % (A) 1 %; Eosinophils # (A) 0.4 k/uL (0-0.7); Eosinophils % (A) 6 %; HCT 38.7 % (34.0-46.0); HGB 12.1 gm/dL (11.4-16.0); Lymphocytes # (A) 1.9 k/uL (1.0-4.8); Lymphocytes % (A) 30 %; MCH 30.5 pg (25.0-35.0); MCHC 31.3 g/dL (31.0-37.0); MCV 97.4 fL (80.0-100.0); Monocytes # (A) 0.3 k/uL (0-1.0); Monocytes % (A) 4 %; Neutrophils # (A) 3.8 k/uL (1.3-7.7); Neutrophils % (A) 59 %; Platelet Count 212 k/uL (150-450); RBC 3.97 m/uL (3.80-5.40); WBC 6.5 k/uL (3.8-10.6)
--- NOTE | 2018-05-15 12:08 | ED ---
General Adult HPI - General Chief complaint: Recheck/Abnormal Lab/Rx Stated complaint: bowel problem Time Seen by Provider: 05/15/18 11:29 Source: patient, RN notes reviewed Mode of arrival: ambulatory Limitations: no limitations - History of Present Illness Initial comments: This a 67-year-old female presents emergency Department with chief complaint of diarrhea, black stools. Patient states that this has been on and off over the last 2 weeks did see PCP for who took a sample but states that there is no acute findings results. Patient states that she cleans herself up after a bowel movement but states that she starts urinating and feels that there is more stool there. Patient states that she no she is going but sometimes it is hard to hold. Patient denies any lower extremity weakness. Patient states that she is not taking iron or any blood thinners at this time. Patient states she does feel weak. Patient states that she does have to use a wheelchair for long distances but is able to ambulate around her house. Patient has had back issues but not out of the usual at this time. Patient denies any recent falls. Patient also believes that she has urinary tract infection as she's had some pain and has chronic urinary tract infections no fever or chills. Denies any chest pain or shortness breath. - Related Data Home Medications Medication Instructions Recorded Confirmed Atorvastatin Calcium [Lipitor] 10 mg PO MOWE 05/15/18 05/15/18 Hydrocodone/Acetaminophen [[place] 1 tab PO DAILY PRN 05/15/18 05/15/18 5-325] Metoprolol Tartrate 25 mg PO BID 05/15/18 05/15/18 Oxybutynin Chloride 5 mg PO BID 05/15/18 05/15/18 buPROPion XL [Wellbutrin Xl] 150 mg PO DAILY 05/15/18 05/15/18 Previous Rx's Medication Instructions Recorded Nitrofurantoin Monohyd/M-Cryst 100 mg PO Q12HR #14 cap 05/15/18 [Macrobid] Allergies Allergy/AdvReac Type Severity Reaction Status Date / Time meperidine [From Demerol] Allergy Unknown Verified 05/15/18 11:53 Sulfa (Sulfonamide Allergy Unknown Verified 05/15/18 11:53 Antibiotics) Penicillins AdvReac Shakiness Verified 05/15/18 11:53 Review of Systems ROS Statement: Those systems with pertinent positive or pertinent negative responses have been documented in the HPI. ROS Other: All systems not noted in ROS Statement are negative. Past Medical History Past Medical History: Diabetes Mellitus, Hypertension, Neurologic Disorder Additional Past Medical History / Comment(s): NEUROPATHY, MIGRAINES, fractured right shoulder History of Any Multi-Drug Resistant Organisms: None Reported Past Surgical History: Bariatric Surgery, Bladder Surgery, Hysterectomy Additional Past Surgical History / Comment(s): ORAL SURGERY. COLONOSCOPY. LAP BAND THEN HAD BARIATRIC SURGERY; bladder surgery may have been for a benign cyst but is not sure Past Anesthesia/Blood Transfusion Reactions: No Reported Reaction Past Psychological History: Anxiety, Depression Smoking Status: Never smoker Past Alcohol Use History: None Reported Past Drug Use History: None Reported - Past Family History Mother Family Medical History: Diabetes Mellitus Father Family Medical History: CVA/TIA, Diabetes Mellitus Sister(s) Family Medical History: Deep Vein Thrombosis (DVT) General Exam Limitations: no limitations General appearance: alert, in no apparent distress Head exam: Present: atraumatic, normocephalic, normal inspection Neck exam: Present: normal inspection, full ROM. Absent: tenderness, meningismus, lymphadenopathy Respiratory exam: Present: normal lung sounds bilaterally. Absent: respiratory distress, wheezes, rales, rhonchi, stridor Cardiovascular Exam: Present: regular rate, normal rhythm, normal heart sounds. Absent: systolic murmur, diastolic murmur, rubs, gallop, clicks GI/Abdominal exam: Present: soft, tenderness (Mild suprapubic), normal bowel sounds. Absent: distended, guarding, rebound, rigid Rectal exam: Present: decreased rectal tone (Rectal tone is noticed though felt to be slightly decreased, normal sensation), black stool Back exam: Present: full ROM. Absent: tenderness, CVA tenderness (R), CVA tenderness (L), paraspinal tenderness, vertebral tenderness Neurological exam: Present: alert, oriented X3, CN II-XII intact Skin exam: Present: warm, dry, intact, normal color. Absent: rash Course Vital Signs 05/15/18 11:07 Temperature 97.9 F Pulse Rate 56 L Respiratory 18 Rate Blood Pressure 121/70 O2 Sat by Pulse 99 Oximetry EKG Findings - EKG Comments: EKG Findings:: EKG performed at 12:44 sinus bradycardia with a rate of 55 IA 160 porch were 78 QT status QTC 436 is 417 Medical Decision Making - Medical Decision Making 67-year-old female presented for loose stools. Patient has rectal tone, normal sensation. There is no concern for cauda equina patient is able to urinate by herself with no evidence of retention. Patient does have evidence of urinary tract infection. Patient is a hyperkalemia was hydrated recheck potassium 5.4 we given Lasix at this time. Patient will follow-up tomorrow for recheck of her potassium. Patient also be treated for her urinary tract infection return parameters were discussed. - Lab Data Result diagrams: 05/15/18 11:52 05/15/18 13:34 Lab Results 05/15/18 05/15/18 05/15/18 Range/Units 11:52 11:52 11:52 WBC 6.5 (3.8-10.6) k/uL RBC 3.97 (3.80-5.40) m/uL Hgb 12.1 (11.4-16.0) gm/dL Hct 38.7 (34.0-46.0) % MCV 97.4 (80.0-100.0) fL MCH 30.5 (25.0-35.0) pg MCHC 31.3 (31.0-37.0) g/dL RDW 14.0 (11.5-15.5) % Plt Count 212 (150-450) k/uL Neutrophils % 59 % Lymphocytes % 30 % Monocytes % 4 % Eosinophils % 6 % Basophils % 1 % Neutrophils # 3.8 (1.3-7.7) k/uL Lymphocytes # 1.9 (1.0-4.8) k/uL Monocytes # 0.3 (0-1.0) k/uL Eosinophils # 0.4 (0-0.7) k/uL Basophils # 0.0 (0-0.2) k/uL PT 10.6 (9.0-12.0) sec INR 1.0 (<1.2) APTT 23.9 (22.0-30.0) sec Sodium 138 (137-145) mmol/L Potassium 6.0 H (3.5-5.1) mmol/L Chloride 109 H (98-107) mmol/L Carbon Dioxide 21 L (22-30) mmol/L Anion Gap 8 mmol/L BUN 26 H (7-17) mg/dL Creatinine 1.26 H (0.52-1.04) mg/dL Est GFR (CKD-EPI)AfAm 51 (>60 ml/min/1.73 sqM) Est GFR (CKD-EPI)NonAf 44 (>60 ml/min/1.73 sqM) Glucose 109 H (74-99) mg/dL Calcium 9.7 (8.4-10.2) mg/dL Total Bilirubin 0.5 (0.2-1.3) mg/dL AST 36 (14-36) U/L ALT 53 H (9-52) U/L Alkaline Phosphatase 76 (38-126) U/L Total Protein 6.3 (6.3-8.2) g/dL Albumin 3.9 (3.5-5.0) g/dL Lipase 301 H (23-300) U/L Urine Color Urine Appearance (Clear) Urine pH (5.0-8.0) Ur Specific [place] (1.001-1.035) Urine Protein (Negative) Urine Glucose (UA) (Negative) Urine Ketones (Negative) Urine Blood (Negative) Urine Nitrite (Negative) Urine Bilirubin (Negative) Urine Urobilinogen (<2.0) mg/dL Ur Leukocyte Esterase (Negative) Urine RBC (0-5) /hpf Urine WBC (0-5) /hpf Urine WBC Clumps (None) /hpf Ur Squamous Epith Cells (0-4) /hpf Urine Bacteria (None) /hpf Urine Mucus (None) /hpf Stool Occult Blood (Negative) 05/15/18 05/15/18 05/15/18 Range/Units 12:00 12:57 13:34 WBC (3.8-10.6) k/uL RBC (3.80-5.40) m/uL Hgb (11.4-16.0) gm/dL Hct (34.0-46.0) % MCV (80.0-100.0) fL MCH (25.0-35.0) pg MCHC (31.0-37.0) g/dL RDW (11.5-15.5) % Plt Count (150-450) k/uL Neutrophils % % Lymphocytes % % Monocytes % % Eosinophils % % Basophils % % Neutrophils # (1.3-7.7) k/uL Lymphocytes # (1.0-4.8) k/uL Monocytes # (0-1.0) k/uL Eosinophils # (0-0.7) k/uL Basophils # (0-0.2) k/uL PT (9.0-12.0) sec INR (<1.2) APTT (22.0-30.0) sec Sodium 139 (137-145) mmol/L Potassium 5.4 H (3.5-5.1) mmol/L Chloride 109 H (98-107) mmol/L Carbon Dioxide 24 (22-30) mmol/L Anion Gap 6 mmol/L BUN 25 H (7-17) mg/dL Creatinine 1.22 H (0.52-1.04) mg/dL Est GFR (CKD-EPI)AfAm 53 (>60 ml/min/1.73 sqM) Est GFR (CKD-EPI)NonAf 46 (>60 ml/min/1.73 sqM) Glucose 103 H (74-99) mg/dL Calcium 9.3 (8.4-10.2) mg/dL Total Bilirubin (0.2-1.3) mg/dL AST (14-36) U/L ALT (9-52) U/L Alkaline Phosphatase (38-126) U/L Total Protein (6.3-8.2) g/dL Albumin (3.5-5.0) g/dL Lipase (23-300) U/L Urine Color Light Yellow Urine Appearance Cloudy H (Clear) Urine pH 5.5 (5.0-8.0) Ur Specific [place] 1.011 (1.001-1.035) Urine Protein Trace H (Negative) Urine Glucose (UA) Negative (Negative) Urine Ketones Negative (Negative) Urine Blood Small H (Negative) Urine Nitrite Negative (Negative) Urine Bilirubin Negative (Negative) Urine Urobilinogen <2.0 (<2.0) mg/dL Ur Leukocyte Esterase Large H (Negative) Urine RBC 50 H (0-5) /hpf Urine WBC >182 H (0-5) /hpf Urine WBC Clumps Rare H (None) /hpf Ur Squamous Epith Cells 1 (0-4) /hpf Urine Bacteria Many H (None) /hpf Urine Mucus Few H (None) /hpf Stool Occult Blood Negative (Negative) Disposition Clinical Impression: Urinary tract infection, Hyperkalemia, Diarrhea Disposition: HOME SELF-CARE Condition: Stable Instructions (If sedation given, give patient instructions): Urinary Tract Infection in Women (ED) Additional Instructions: Please return to the Emergency Department if symptoms worsen or any other concerns. Prescriptions: Nitrofurantoin Monohyd/M-Cryst [Macrobid] 100 mg PO Q12HR #14 cap Is patient prescribed a controlled substance at d/c from ED?: No Referrals: Alejandro Navas MD [Primary Care Provider] - 1-2 days Time of Disposition: 14:34
[2018-05-15 12:11] LABS: Albumin 3.9 g/dL (3.5-5.0); Calcium 9.7 mg/dL (8.4-10.2); Total Bilirubin 0.5 mg/dL (0.2-1.3); Total Protein 6.3 g/dL (6.3-8.2)
[2018-05-15 12:37] LABS: Partial Thromboplastin Time 23.9 sec (22.0-30.0); Prothrombin Time 10.6 sec (9.0-12.0)
[2018-05-15 13:19] LABS: Appearance,Urine Cloudy (Clear); Bilirubin,Urine Negative (Negative); Blood,Urine Small (Negative); Color,Urine Light Yellow; Glucose,Urine (UA) Negative (Negative); Ketones,Urine Negative (Negative); Leukocyte Esterase,Urine Large (Negative); Nitrite,Urine Negative (Negative); PH, Urine 5.5 (5.0-8.0); Protein,Urine Trace (Negative); Specific Gravity,Urine 1.011 (1.001-1.035); Urobilinogen,Urine <2.0 mg/dL (<2.0); WBC,Urine >182 /hpf (0-5)
[2018-05-15 13:20] LABS: Bacteria,Urine Many /hpf; Mucus,Urine Few /hpf; RBC,Urine 50 /hpf (0-5); Squamous Epithelial Cell,Urine 1 /hpf (0-4)
[2018-05-15 14:10] LABS: Calcium 9.3 mg/dL (8.4-10.2); Potassium 5.4 mmol/L (3.5-5.1)
[2018-05-15] MEDS ORDERED: cefTRIAXone IN SWFI 1,000 MG/10 ML SYRINGE IVP STA (14:30)
[2018-05-15] MEDS ORDERED: FUROSEMIDE 20 MG TAB PO STA (14:30)
[2018-05-15] MEDS ORDERED: DIPHENOX-ATROP 2.5-0.025 MG 1 EACH TAB PO STA (14:32)
[2018-05-15 14:44] VITALS: BP 120/64; PULSE 57; RESP 16
== END 2018-05-15 15:14 | disposition home or self-care (01) ==
LOC: EC 11:06
DX: N39.0 Urinary tract infection, site not specified (principal); E87.5 Hyperkalemia; R19.7 Diarrhea, unspecified; I10 Essential (primary) hypertension; F32.9 Major depressive disorder, single episode, unspecified; Z79.899 Other long term (current) drug therapy; Z88.0 Allergy status to penicillin; Z88.2 Allergy status to sulfonamides; Z88.5 Allergy status to narcotic agent; Z98.84 Bariatric surgery status
CPT/HCPCS: 36415; 93005; 80053; 80048; 83690; 85025; 85610; 85730; 82272; 81001; 99284; 96374; 96361; J0696

== ENCOUNTER → 2018-06-05 | Outpatient (CLI) | payer MEDICARE ==
--- NOTE | 2018-06-06 09:21 | MM ---
Reason for exam: screening (asymptomatic). Last mammogram was performed 14 years and 5 months ago. History: Patient is postmenopausal, history of endometrial cancer, and is nulliparous. Family history of breast cancer in maternal aunt. Took estrogen for 13 years. Physical Findings: A clinical breast exam by your physician is recommended on an annual basis and results should be correlated with mammographic findings. MG 3D Screening Mammo W/Cad Bilateral CC and MLO view(s) were taken. No prior studies available for comparison. The breast tissue is heterogeneously dense. This may lower the sensitivity of mammography. There is no discrete abnormality. No significant changes when compared with prior studies. ASSESSMENT: Benign, BI-RAD 2 RECOMMENDATION: Routine screening mammogram of both breasts in 1 year.
== END | disposition home or self-care (01) ==
LOC: RADMAMWWP 14:13
PROVIDERS: ATTEND Family Medicine
DX: Z12.31 Encounter for screening mammogram for malignant neoplasm of breast (principal)
CPT/HCPCS: 77063; 77067

== ENCOUNTER 2018-08-07 13:58 | Inpatient (IN) | payer MEDICARE ==
--- NOTE | 2018-08-07 14:43 | ED ---
Pediatric GI HPI <Kamaljit Corrales - Last Filed: 08/07/18 18:16> - General Source: patient Mode of arrival: ambulatory Limitations: no limitations <Dalia Ramirez - Last Filed: 08/07/18 20:02> - General Chief Complaint: Abdominal Pain Stated Complaint: Side Pain Time Seen by Provider: 08/07/18 14:37 - History of Present Illness Initial Comments: 67-year-old female presents today for chief complaint of flank pain. Patient states she has had left flank pain that began at 5 AM. 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 Patient denies any previous surgeries for stone removal. She denies any hematuria dysuria urgency or frequency. Patient states the pain is radiating now down towards her groin has caused some nausea she denies any vomiting. Patient has a chest pain shortness of breath upper abdominal pain. Patient denies any upper back pain, vomiting diarrhea fever chills night sweats. Patient denies any history of aortic aneurysm. Remaining review of systems negative. Patient appears well this ends acute distress. (Daila Ramirez) - Related Data Home Medications Medication Instructions Recorded Confirmed Atorvastatin Calcium [Lipitor] 10 mg PO MOWE 05/15/18 08/07/18 Hydrocodone/Acetaminophen [[place] 1 tab PO HS 05/15/18 08/07/18 5-325] Metoprolol Tartrate 25 mg PO BID 05/15/18 08/07/18 Oxybutynin Chloride 5 mg PO BID 05/15/18 08/07/18 buPROPion XL [Wellbutrin Xl] 150 mg PO DAILY 05/15/18 08/07/18 Ciprofloxacin HCl [Cipro] 500 mg PO BID 08/07/18 08/07/18 Allergies Allergy/AdvReac Type Severity Reaction Status Date / Time meperidine [From Demerol] Allergy Nausea & Verified 08/07/18 16:59 Vomiting Sulfa (Sulfonamide Allergy Nausea & Verified 08/07/18 16:59 Antibiotics) Vomiting Penicillins AdvReac Shakiness Verified 08/07/18 16:59 Review of Systems ROS Other: All systems not noted in ROS Statement are negative. <Kamaljit Corrales - Last Filed: 08/07/18 18:16> ROS Other: All systems not noted in ROS Statement are negative. <Dalia Ramirez - Last Filed: 08/07/18 20:02> ROS Statement: Those systems with pertinent positive or pertinent negative responses have been documented in the HPI. Past Medical History Past Medical History: Diabetes Mellitus, Hypertension, Neurologic Disorder Additional Past Medical History / Comment(s): NEUROPATHY, MIGRAINES, fractured right shoulder History of Any Multi-Drug Resistant Organisms: None Reported Past Surgical History: Bariatric Surgery, Bladder Surgery, Hysterectomy Additional Past Surgical History / Comment(s): ORAL SURGERY. COLONOSCOPY. LAP BAND THEN HAD BARIATRIC SURGERY; bladder surgery may have been for a benign cyst but is not sure Past Anesthesia/Blood Transfusion Reactions: No Reported Reaction Past Psychological History: Anxiety, Depression Smoking Status: Never smoker Past Alcohol Use History: None Reported Past Drug Use History: None Reported - Past Family History Mother Family Medical History: Diabetes Mellitus Father Family Medical History: CVA/TIA, Diabetes Mellitus Sister(s) Family Medical History: Deep Vein Thrombosis (DVT) <Dalia Ramirez - Last Filed: 08/07/18 20:02> General Exam Limitations: no limitations <Dalia Ramirez - Last Filed: 08/07/18 20:02> - General Exam Comments Initial Comments: General: The patient is awake and alert, in no distress, and does not appear acutely ill. Eye: +3 mm pupils are equal, round and reactive to light, extra-ocular movements are intact. No nystagmus. There is normal conjunctiva bilaterally. No signs of icterus. Ears, nose, mouth and throat: There are moist mucous membranes and no oral lesions. Neck: The neck is supple, there is no tenderness or JVD. Cardiovascular: There is a regular rate and rhythm. No murmur, rub or gallop is appreciated. Respiratory: Lungs are clear to auscultation, respirations are non-labored, breath sounds are equal. No wheezes, stridor, rales, or rhonchi. Gastrointestinal: Soft, non-distended, non-tender abdomen without masses or o rganomegaly noted. There is no rebound or guarding present. No CVA tenderness. Bowel sounds are unremarkable. Musculoskeletal: Normal ROM, no tenderness. Strength 5/5. Sensation intact. Radial pulses equal bilaterally 2+. Neurological: A&O x 3. CN II-XII intact, There are no obvious motor or sensory deficits. Coordination appears grossly intact. Speech is normal. Skin: Skin is warm and dry and no rashes or lesions are noted. Psychiatric: Cooperative, appropriate mood & affect, normal judgment. (Dalia Ramirez) Course Vital Signs 08/07/18 08/07/18 08/07/18 14:06 16:45 18:30 Temperature 97.4 F L 98.0 F Pulse Rate 70 71 78 Respiratory 18 16 24 Rate Blood Pressure 125/84 138/64 113/56 O2 Sat by Pulse 98 99 97 Oximetry 08/07/18 18:58 Temperature 97.0 F L Pulse Rate 79 Respiratory 18 Rate Blood Pressure 113/56 O2 Sat by Pulse 99 Oximetry Medical Decision Making - Lab Data Result diagrams: 08/07/18 15:00 08/07/18 15:00 <Kamaljit Corrales - Last Filed: 08/07/18 18:16> - Lab Data Result diagrams: 08/07/18 15:00 08/07/18 15:00 <Dalia Ramirez - Last Filed: 08/07/18 20:02> - Medical Decision Making 67-year-old female with flank pain. Patient found to have large renal calculus, with perinephric edema and inflammation. She has signs of significant infection on urinalysis patient has a normal CBC, stable hemoglobin. She has normal vital signs and overall appearance appears well. She has worsening of her creatinine and potassium of 5.8. She's given IV fluids, started on IV antibiotics awaiting culture results. I did discuss this case with Dr. Estes, recommends keeping the patient nothing by mouth tonight in case he does need for intervention tomorrow. (Kamaljit Corrales) 67-year-old female presenting for left-sided flank pain. There is large renal cocci with a partial staghorn calculi left dided, nephrotic edema and inflamm ation. After this correlates clinically patient's pain is multipl large stones in the ureters Patient was given Toradol this alleviated patient's symptoms. Recent abdominal exam was benign. Patient did have mild hyperkalemia. EKG revealed no changes. Patient was given calcium gluconate. Patient be given albuterol as well as insulin. Patient was started on ciprofloxacin. Patient states allergic to PCN. Urine cultures are pending. On-call urology by attending provider Dr. Corrales, Dr Estes was contacted discussed imaging studies findings including possibility of forniceal rupture vs pelvic inflammatory changes. He recommended admission with nothing by mouth after midnight. Patient was admitted to medicine with urology consult. Patient was accepted by Dr. Strauss. Patient findings were discussed she is agreeable with care plan as well as admission. INTERESTED about viability. Patient transferred to the floor in stable condition. This was discussed mentating provider throughout course in the emergency department. (Dalia Ramirez) - Lab Data Lab Results 08/07/18 08/07/18 08/07/18 Range/Units 15:00 15:00 15:15 WBC 9.7 (3.8-10.6) k/uL RBC 4.23 (3.80-5.40) m/uL Hgb 12.3 (11.4-16.0) gm/dL Hct 40.3 (34.0-46.0) % MCV 95.4 (80.0-100.0) fL MCH 29.0 (25.0-35.0) pg MCHC 30.4 L (31.0-37.0) g/dL RDW 15.3 (11.5-15.5) % Plt Count 171 (150-450) k/uL Neutrophils % 86 % Lymphocytes % 9 % Monocytes % 3 % Eosinophils % 1 % Basophils % 0 % Neutrophils # 8.4 H (1.3-7.7) k/uL Lymphocytes # 0.8 L (1.0-4.8) k/uL Monocytes # 0.3 (0-1.0) k/uL Eosinophils # 0.1 (0-0.7) k/uL Basophils # 0.0 (0-0.2) k/uL Hypochromasia Slight Sodium 140 (137-145) mmol/L Potassium 5.8 H (3.5-5.1) mmol/L Chloride 115 H (98-107) mmol/L Carbon Dioxide 16 L (22-30) mmol/L Anion Gap 9 mmol/L BUN 33 H (7-17) mg/dL Creatinine 1.96 H (0.52-1.04) mg/dL Est GFR (CKD-EPI)AfAm 30 (>60 ml/min/1.73 sqM) Est GFR (CKD-EPI)NonAf 26 (>60 ml/min/1.73 sqM) Glucose 127 H (74-99) mg/dL Calcium 9.1 (8.4-10.2) mg/dL Total Bilirubin 0.3 (0.2-1.3) mg/dL AST 21 (14-36) U/L ALT 18 (9-52) U/L Alkaline Phosphatase 106 (38-126) U/L Total Protein 6.2 L (6.3-8.2) g/dL Albumin 3.8 (3.5-5.0) g/dL Amylase 36 (30-110) U/L Lipase 108 (23-300) U/L Urine Color Light Yellow Urine Appearance Cloudy H (Clear) Urine pH 6.0 (5.0-8.0) Ur Specific [place] 1.016 (1.001-1.035) Urine Protein 1+ H (Negative) Urine Glucose (UA) Negative (Negative) Urine Ketones Negative (Negative) Urine Blood Small H (Negative) Urine Nitrite Negative (Negative) Urine Bilirubin Negative (Negative) Urine Urobilinogen <2.0 (<2.0) mg/dL Ur Leukocyte Esterase Large H (Negative) Urine RBC 26 H (0-5) /hpf Urine WBC >182 H (0-5) /hpf Urine WBC Clumps Few H (None) /hpf Ur Squamous Epith Cells 3 (0-4) /hpf Urine Bacteria Rare H (None) /hpf Urine Mucus Rare H (None) /hpf Disposition <Kamaljit Corrales - Last Filed: 08/07/18 18:16> Is patient prescribed a controlled substance at d/c from ED?: No Time of Disposition: 20:01 Decision to Admit Reason: Admit from EC Decision Date: 08/07/18 Decision Time: 19:00 <Dalia Ramirez L - Last Filed: 08/07/18 20:02> Clinical Impression: Flank pain, Hyperkalemia, Staghorn renal calculus Disposition: ADMITTED IP TO THIS HOSP Condition: Stable
[2018-08-07 15:21] LABS: Basophils % (A) 0 %; Eosinophils # (A) 0.1 k/uL (0-0.7); Eosinophils % (A) 1 %; HCT 40.3 % (34.0-46.0); HGB 12.3 gm/dL (11.4-16.0); Hypochromasia Slight; Lymphocytes # (A) 0.8 k/uL (1.0-4.8); Lymphocytes % (A) 9 %; MCHC 30.4 g/dL (31.0-37.0); MCV 95.4 fL (80.0-100.0); Mean Platelet Volume 8.1; Monocytes # (A) 0.3 k/uL (0-1.0); Monocytes % (A) 3 %; Neutrophils # (A) 8.4 k/uL (1.3-7.7); Neutrophils % (A) 86 %; Platelet Count 171 k/uL (150-450); RBC 4.23 m/uL (3.80-5.40); RDW 15.3 % (11.5-15.5); WBC 9.7 k/uL (3.8-10.6)
[2018-08-07 15:30] LABS: Albumin 3.8 g/dL (3.5-5.0); Calcium 9.1 mg/dL (8.4-10.2); Potassium 5.8 mmol/L (3.5-5.1); Total Bilirubin 0.3 mg/dL (0.2-1.3); Total Protein 6.2 g/dL (6.3-8.2)
[2018-08-07] MEDS ORDERED: KETOROLAC 30 MG/ML 1 ML VIAL IVP STA (16:11)
[2018-08-07 16:14] LABS: Appearance,Urine Cloudy (Clear); Bacteria,Urine Rare /hpf; Bilirubin,Urine Negative (Negative); Blood,Urine Small (Negative); Color,Urine Light Yellow; Glucose,Urine (UA) Negative (Negative); Ketones,Urine Negative (Negative); Leukocyte Esterase,Urine Large (Negative); Mucus,Urine Rare /hpf; Nitrite,Urine Negative (Negative); Protein,Urine 1+ (Negative); RBC,Urine 26 /hpf (0-5); Specific Gravity,Urine 1.016 (1.001-1.035); Squamous Epithelial Cell,Urine 3 /hpf (0-4); Urobilinogen,Urine <2.0 mg/dL (<2.0); WBC,Urine >182 /hpf (0-5)
--- NOTE | 2018-08-07 16:20 | CT ---
EXAMINATION TYPE: CT abdomen pelvis wo con DATE OF EXAM: 08/07/2018 COMPARISON: Prior CT 01/20/2018 HISTORY: Left lower quadrant abdominal pain. CT DLP: 620 mGycm Automated exposure control for dose reduction was used. TECHNIQUE: Helical acquisition of images from the lung bases through the pelvis. FINDINGS: Lack of intravenous contrast could compromise sensitivity. Postop changes are noted at the gastroesophageal junction status post gastric sleeve. LUNG BASES: No significant abnormality is appreciated. AORTA: No significant abnormality is appreciated. LIVER/GB: Patient is post cholecystectomy. Liver shows no mass. PANCREAS: No significant abnormality is seen. SPLEEN: No significant abnormality is seen. ADRENALS: No significant abnormality is seen. KIDNEYS: Perinephric inflammatory changes extensive on the left. Bilateral renal calculi are present. Calculus on the right is within the renal pelvis and measures approximately 18 mm in greatest dimens ion. There is some punctate nonobstructive calculi at the lower pole, approximately 6 foci. Multiple calculi within the left kidney lower pole may represent a partial staghorn measuring 13 mm in AP dime nsion, nonobstructive midpole calculus is present measuring only 2 mm. There is left-sided hydrourete r. Multiple calculi are suspected at the distal aspect of the left ureter, approximately 5 or 6 calcu li are thought to be stacked in the distal ureter, largest calculus thought to be present in the dist al ureter measuring 8 to 9 mm. Distal right calculus is also present measuring 1 cm. Bilateral hydron ephrosis suspected. REPRODUCTIVE ORGANS: Not seen URINARY BLADDER: Thickening of the bladder wall is nonspecific and may be due to lack of distention, correlate to exclude cystitis. BOWEL: Postop changes are noted to the bowel. There may be an associated ileus FREE AIR: No Free Air is visible. ASCITES: None visible. PELVIC ADENOPATHY: None visualized. RETROPERITONEAL ADENOPATHY: No Retroperitoneal Adenopathy visible. OSSEOUS STRUCTURES: No significant abnormality is seen. IMPRESSION: BILATERAL NEPHROLITHIASIS AND URETEROLITHIASIS. THERE MAY BE FORNICEAL RUPTURE OR PERINEPHRIC INFLAMM ATORY CHANGE, CORRELATE TO EXCLUDE PYELONEPHRITIS, CYSTITIS. NONCONTRAST EXAM.
[2018-08-07] MEDS ORDERED: CIPROFLOXACIN/DEXTROSE PMX 400 MG in DEXTROSE/WATER 1 200ML.BAG IVPB STA (16:24)
[2018-08-07] MEDS ORDERED: CALCIUM GLUCONATE 2 GM in SODIUM CHLORIDE 0.9% 100 ML IVPB ONE (17:57)
[2018-08-07] MEDS ORDERED: INSULIN REGULAR 100 UNIT/ML VIAL IV ONE (17:57)
[2018-08-07] MEDS ORDERED: DEXTROSE 50% SYRINGE 50 ML IVP STA (17:58)
[2018-08-07] MEDS ORDERED: ALBUTEROL NEBULIZED 2.5 MG/3 ML INHALATION STA (17:58)
[2018-08-07] MEDS ORDERED: NALOXONE 0.4 MG/ML 1 ML VIAL IV PRN (17:59)
[2018-08-07 19:36] VITALS: BMI 56.4
[2018-08-07] MEDS: OXYBUTYNIN CHLORIDE 5 MG TAB PO SCH (20:37)
[2018-08-07] MEDS: HYDROcodone/APAP 5-325MG 1 EACH TAB PO PRN (20:37)
[2018-08-07] MEDS: ATORVASTATIN 10 MG TAB PO SCH (20:37)
[2018-08-07] MEDS: METOPROLOL TARTRATE 25 MG TAB PO SCH (20:37)
[2018-08-07] MEDS: buPROPion XL 150 MG TAB.ER.24H PO SCH (20:37)
[2018-08-07 20:40] LABS: Glucose,Whole Blood 120 mg/dL (75-99)
[2018-08-07] MEDS: SODIUM CHLORIDE 0.9% 1,000 ML IV SCH (20:44)
[2018-08-08] MEDS: HYDROcodone/APAP 5-325MG 1 EACH TAB PO PRN ×3 (04:02→16:16)
[2018-08-08] MEDS: METOPROLOL TARTRATE 25 MG TAB PO SCH ×2 (08:08→20:16)
[2018-08-08] MEDS: SODIUM CHLORIDE 0.9% 1,000 ML IV SCH (10:24)
[2018-08-08 11:20] LABS: Calcium 8.4 mg/dL (8.4-10.2); Magnesium 1.7 mg/dL (1.6-2.3); Potassium 5.3 mmol/L (3.5-5.1)
[2018-08-08] MEDS ORDERED: MAGNESIUM SULFATE-D5W PMX 1 GM in DEXTROSE/WATER 1 100ML.BAG IVPB ONE (11:27)
--- NOTE | 2018-08-08 11:31 | P.NPCON ---
History of Present Illness - Reason for Consult acute renal failure - History of Present Illness Reason for consultation: Acute kidney injury History of present illness: Patient is a 67-year-old female seen in renal consultation for acute kidney injury. Patient presented to the hospital with left-sided flank pain that began 2 days ago. Patient states the pain was of sudden onset. Patient had a CAT sc an of the abdomen and pelvis done without contrast in the ER which revealed bilateral renal calculi. Bilateral hydronephrosis was noted. She is scheduled for a ureteral stent placement by urology today. Patient's potassium level was 5.8 which was medically treated. Repeat level was 5.2. She was also noted to be acidotic with a bicarbonate level of 16. She denies any vomiting or diarrhea. Denies use of nonsteroidals. She is currently maintained on normal saline at 75 mL an hour. She did have a temperature of 100.5F early this morning.. No hematuria or dysuria. No history of diabetes. Denies family history of renal disease. Vital signs are stable. General: The patient appeared well nourished and normally developed. HEENT: Head exam is unremarkable. Neck is without jugular venous distension. LUNGS: Lungs are clear to auscultation and percussion. Breath sounds decreased. HEART: Rate and Rhythm are regular. First and second heart sounds normal. No murmurs, rubs or gallops. ABDOMEN: Abdominal exam reveals normal bowel sounds. Non-tender and non- distended. No evidence of peritonitis. EXTREMITITES: No clubbing, cyanosis, or edema. Past Medical History Past Medical History: Diabetes Mellitus, Hypertension, Neurologic Disorder Additional Past Medical History / Comment(s): NEUROPATHY, MIGRAINES, fractured right shoulder History of Any Multi-Drug Resistant Organisms: None Reported Past Surgical History: Bariatric Surgery, Bladder Surgery, Hysterectomy Additional Past Surgical History / Comment(s): ORAL SURGERY. COLONOSCOPY. LAP BAND THEN HAD BARIATRIC SURGERY; bladder surgery may have been for a benign cyst but is not sure Past Anesthesia/Blood Transfusion Reactions: No Reported Reaction Past Psychological History: Anxiety, Depression Smoking Status: Never smoker Past Alcohol Use History: None Reported Past Drug Use History: None Reported - Past Family History Mother Family Medical History: Diabetes Mellitus Additional Family Medical History / Comment(s): At [facility] with UTI. Father Family Medical History: CVA/TIA, Diabetes Mellitus Sister(s) Family Medical History: Deep Vein Thrombosis (DVT) Medications and Allergies Home Medications Medication Instructions Recorded Confirmed Type Atorvastatin Calcium [Lipitor] 10 mg PO MOWE 05/15/18 08/07/18 History Hydrocodone/Acetaminophen [[place] 1 tab PO HS 05/15/18 08/07/18 History 5-325] Metoprolol Tartrate 25 mg PO BID 05/15/18 08/07/18 History Oxybutynin Chloride 5 mg PO BID 05/15/18 08/07/18 History buPROPion XL [Wellbutrin Xl] 150 mg PO DAILY 05/15/18 08/07/18 History Ciprofloxacin HCl [Cipro] 500 mg PO BID 08/07/18 08/07/18 History Allergies Allergy/AdvReac Type Severity Reaction Status Date / Time meperidine [From Demerol] Allergy Nausea & Verified 08/07/18 16:59 Vomiting Sulfa (Sulfonamide Allergy Nausea & Verified 08/07/18 16:59 Antibiotics) Vomiting Penicillins AdvReac Shakiness Verified 08/07/18 16:59 Physical Exam Vitals: Vital Signs Temp Pulse Pulse Resp BP BP Pulse Ox 08/08/18 05:49 98.9 F 08/08/18 04:10 100.5 F H 97 16 111/67 98 08/07/18 20:35 97.8 F 87 16 121/80 96 08/07/18 18:58 97.0 F L 79 18 113/56 99 08/07/18 18:30 78 24 113/56 97 08/07/18 16:45 98.0 F 71 16 138/64 99 08/07/18 14:06 97.4 F L 70 18 125/84 98 Intake and Output 08/07/18 08/08/18 08/08/18 22:59 06:59 14:59 Intake Total 1190 600 Balance 1190 600 Intake: IV 50 D5W Amp 50 Intake, IV Titration 600 600 Amount Calcium Gluconate 2 gm In 100 Sodium Chloride 0.9% 100 ml @ 100 mls/hr IVPB ONCE ONE Rx#:[id number] Ciprofloxacin/Dextrose 200 Pmx 400 mg In Dextrose/ Water 1 200ml.bag @ 200 mls/hr IVPB ONCE STA Rx#: [id number] Sodium Chloride 0.9% 1, 300 600 000 ml @ 75 mls/hr IV . [id number] [facility] Rx#:[id number] Oral 540 Other: Voiding Method Toilet Toilet # Voids 2 1 Results - Lab Results Most recent lab results Calcium 9.1 mg/dL (8.4-10.2) 08/07/18 15:00 08/07/18 15:00 08/07/18 21:39 Assessment and Plan Plan: Assessment: 1. Acute kidney injury. Renal function is worsening. Creatinine up to 3.35 today. There is concern for obstructive uropathy. Bilateral hydronephrosis noted on CT of the abdomen and pelvis. Creatinine in November 2017 was 0.8- 1.1. 2. Hyperkalemia secondary to acute kidney injury and metabolic acidosis. 3. Metabolic acidosis secondary to acute kidney injury and IV fluids. 4. Bilateral nephrolithiasis and hydronephrosis. 5. Pyuria. Urine culture pending. Plan: Discontinue normal saline and start bicarb drip at 75 mL an hour. Urology consulted. Scheduled for stent placement today. Repeat potassium level this evening. Avoid nephrotoxins. Check PVR. Follow-up urine culture. Thank you for the consultation. I will continue to follow the patient with you during her hospital stay.
[2018-08-08] MEDS ORDERED: HYDROmorphone 0.5 MG/0.5 ML SYRINGE IVP PRN (11:39)
[2018-08-08] MEDS ORDERED: LACTATED RINGERS 1,000 ML IV SCH (11:45)
--- NOTE | 2018-08-08 12:30 | P.GSCN ---
History of Present Illness Consult date: 08/08/18 Reason for Consult: Left flank pain Requesting physician: Rocio Strauss History of present illness: The patient is a 67-year-old white female known to Dr. Aguirre. She was found last January to have bilateral renal calculi. She had been treated for a UTI. She is now admitted with a one-day history of left lower quadrant abdominal pain, radiating to the groin. Review of Systems - Constitutional Reports fever - Gastrointestinal Denies nausea, Denies vomiting - Genitourinary Genitourinary: Reports kidney stones, Denies hematuria Past Medical History Past Medical History: Diabetes Mellitus, Hypertension, Neurologic Disorder Additional Past Medical History / Comment(s): NEUROPATHY, MIGRAINES, fractured right shoulder History of Any Multi-Drug Resistant Organisms: None Reported Past Surgical History: Bariatric Surgery, Bladder Surgery, Hysterectomy Additional Past Surgical History / Comment(s): ORAL SURGERY. COLONOSCOPY. LAP BAND THEN HAD BARIATRIC SURGERY; bladder surgery may have been for a benign cyst but is not sure Past Anesthesia/Blood Transfusion Reactions: No Reported Reaction Past Psychological History: Anxiety, Depression Smoking Status: Never smoker Past Alcohol Use History: None Reported Past Drug Use History: None Reported - Past Family History Mother Family Medical History: Diabetes Mellitus Additional Family Medical History / Comment(s): At [facility] with UTI. Father Family Medical History: CVA/TIA, Diabetes Mellitus Sister(s) Family Medical History: Deep Vein Thrombosis (DVT) Medications and Allergies Home Medications Medication Instructions Recorded Confirmed Type Atorvastatin Calcium [Lipitor] 10 mg PO MOWE 05/15/18 08/07/18 History Hydrocodone/Acetaminophen [[place] 1 tab PO HS 05/15/18 08/07/18 History 5-325] Metoprolol Tartrate 25 mg PO BID 05/15/18 08/07/18 History Oxybutynin Chloride 5 mg PO BID 05/15/18 08/07/18 History buPROPion XL [Wellbutrin Xl] 150 mg PO DAILY 05/15/18 08/07/18 History Ciprofloxacin HCl [Cipro] 500 mg PO BID 08/07/18 08/07/18 History Allergies Allergy/AdvReac Type Severity Reaction Status Date / Time meperidine [From Demerol] Allergy Nausea & Verified 08/07/18 16:59 Vomiting Sulfa (Sulfonamide Allergy Nausea & Verified 08/07/18 16:59 Antibiotics) Vomiting Penicillins AdvReac Shakiness Verified 08/07/18 16:59 Surgical - Exam Vital Signs Temp Pulse Resp BP Pulse Ox 97.4 F L 70 18 125/84 98 08/07/18 14:06 08/07/18 14:06 08/07/18 14:06 08/07/18 14:06 08/07/18 14:06 - General well developed, well nourished, no distress - Abdomen Abdomen: soft, tender (Mild left lower quadrant tenderness), no guarding, no rigid, no rebound, no distended - Psychiatric oriented to time, oriented to person, oriented to place, speech is normal, memory intact Results - Labs 08/07/18 15:00 08/08/18 10:26 Abnormal Lab Results - Last 24 Hours (Table) 08/07/18 08/07/18 08/07/18 Range/Units 15:00 15:00 15:15 MCHC 30.4 L (31.0-37.0) g/dL Neutrophils # 8.4 H (1.3-7.7) k/uL Lymphocytes # 0.8 L (1.0-4.8) k/uL Potassium 5.8 H (3.5-5.1) mmol/L Chloride 115 H (98-107) mmol/L Carbon Dioxide 16 L (22-30) mmol/L BUN 33 H (7-17) mg/dL Creatinine 1.96 H (0.52-1.04) mg/dL Glucose 127 H (74-99) mg/dL POC Glucose (mg/dL) (75-99) mg/dL Total Protein 6.2 L (6.3-8.2) g/dL Urine Appearance Cloudy H (Clear) Urine Protein 1+ H (Negative) Urine Blood Small H (Negative) Ur Leukocyte Esterase Large H (Negative) Urine RBC 26 H (0-5) /hpf Urine WBC >182 H (0-5) /hpf Urine WBC Clumps Few H (None) /hpf Urine Bacteria Rare H (None) /hpf Urine Mucus Rare H (None) /hpf 08/07/18 08/07/18 Range/Units 20:31 21:39 MCHC (31.0-37.0) g/dL Neutrophils # (1.3-7.7) k/uL Lymphocytes # (1.0-4.8) k/uL Potassium 5.2 H (3.5-5.1) mmol/L Chloride (98-107) mmol/L Carbon Dioxide (22-30) mmol/L BUN (7-17) mg/dL Creatinine (0.52-1.04) mg/dL Glucose (74-99) mg/dL POC Glucose (mg/dL) 120 H (75-99) mg/dL Total Protein (6.3-8.2) g/dL Urine Appearance (Clear) Urine Protein (Negative) Urine Blood (Negative) Ur Leukocyte Esterase (Negative) Urine RBC (0-5) /hpf Urine WBC (0-5) /hpf Urine WBC Clumps (None) /hpf Urine Bacteria (None) /hpf Urine Mucus (None) /hpf Diabetes panel 08/07/18 08/07/18 Range/Units 15:00 21:39 Sodium 140 (137-145) mmol/L Potassium 5.8 H 5.2 H (3.5-5.1) mmol/L Chloride 115 H (98-107) mmol/L Carbon Dioxide 16 L (22-30) mmol/L BUN 33 H (7-17) mg/dL Creatinine 1.96 H (0.52-1.04) mg/dL Glucose 127 H (74-99) mg/dL Calcium 9.1 (8.4-10.2) mg/dL AST 21 (14-36) U/L ALT 18 (9-52) U/L Alkaline Phosphatase 106 (38-126) U/L Total Protein 6.2 L (6.3-8.2) g/dL Albumin 3.8 (3.5-5.0) g/dL Calcium panel 08/07/18 Range/Units 15:00 Calcium 9.1 (8.4-10.2) mg/dL Albumin 3.8 (3.5-5.0) g/dL Pituitary panel 08/07/18 08/07/18 Range/Units 15:00 21:39 Sodium 140 (137-145) mmol/L Potassium 5.8 H 5.2 H (3.5-5.1) mmol/L Chloride 115 H (98-107) mmol/L Carbon Dioxide 16 L (22-30) mmol/L BUN 33 H (7-17) mg/dL Creatinine 1.96 H (0.52-1.04) mg/dL Glucose 127 H (74-99) mg/dL Calcium 9.1 (8.4-10.2) mg/dL Adrenal panel 08/07/18 08/07/18 Range/Units 15:00 21:39 Sodium 140 (137-145) mmol/L Potassium 5.8 H 5.2 H (3.5-5.1) mmol/L Chloride 115 H (98-107) mmol/L Carbon Dioxide 16 L (22-30) mmol/L BUN 33 H (7-17) mg/dL Creatinine 1.96 H (0.52-1.04) mg/dL Glucose 127 H (74-99) mg/dL Calcium 9.1 (8.4-10.2) mg/dL Total Bilirubin 0.3 (0.2-1.3) mg/dL AST 21 (14-36) U/L ALT 18 (9-52) U/L Alkaline Phosphatase 106 (38-126) U/L Total Protein 6.2 L (6.3-8.2) g/dL Albumin 3.8 (3.5-5.0) g/dL - Imaging CT scan - abdomen: report reviewed, image reviewed Assessment and Plan (1) Calculus of kidney Current Visit: Yes Status: Acute Code(s): N20.0 - CALCULUS OF KIDNEY SNOMED Code(s): 06219768 (2) Calculus of ureter Current Visit: Yes Status: Acute Code(s): N20.1 - CALCULUS OF URETER SNOMED Code(s): 51080817 (3) Acute pyelonephritis Current Visit: Yes Status: Acute Code(s): N10 - ACUTE PYELONEPHRITIS SNOMED Code(s): 87551946 Plan: In summary, Mrs. Alamo has bilateral large renal calculi. The right-sided calcul us is located within the renal pelvis and appears to be well positioned to cause obstructive problems in the near future, but she is asymptomatic on that side. In addition to her large left lower pole renal calculi, she appears to have several left distal ureteral calculi. There is significant left perinephric stranding on computed tomography scan, and urinalysis is suggestive of infection. A urine culture was pending, and she is currently receiving Levaquin. She will undergo cystoscopy with left ureteral stent insertion to relieve ureteral obstruction by Dr. Aguirre or myself. She understands the rationale for this, and the fact that no attempt will be made to remove her ureteral calculi in the face of an apparent infection. The procedure was reviewed in detail, and potential risks were explained which include anesthesia, inability to place a stent, and ureteral injury. She understands that in either of the 2 latter scenarios, placement of a nephrostomy tube will be required. Time with Patient: Greater than 30
[2018-08-08] MEDS ORDERED: IV FLUID CONTINUATION 1,000 ML IV ONE (13:16)
[2018-08-08] MEDS ORDERED: LEVOFLOXACIN 500MG-D5W PMX 500 MG in DEXTROSE/WATER 1 100ML.BAG IVPB SCH (14:00)
[2018-08-08] MEDS ORDERED: MIDAZOLAM 2 MG/2 ML VIAL ONE (14:15)
[2018-08-08] MEDS ORDERED: PROPOFOL 10 MG/ML 20 ML VIAL IV ONE (14:15)
[2018-08-08] MEDS ORDERED: fentaNYL (PF) 50 MCG/ML 2 ML AMP ONE (14:15)
[2018-08-08] MEDS ORDERED: PHENYLEPHRINE-0.9% NACL SYG 1 MG/10 ML SYRINGE ONE (14:15)
[2018-08-08] MEDS ORDERED: IOPAMIDOL-370 100ML BTL MISCELLANE ONE (14:19)
--- NOTE | 2018-08-08 15:10 | P.OP ---
Date of Procedure: 08/08/18 Preoperative Diagnosis: Left hydroureteronephrosis secondary to distal left ureteral calculi with possible pyelonephritis Postoperative Diagnosis: Left hydroureteronephrosis secondary to distal left ureteral calculi with possible pyelonephritis Procedure(s) Performed: Cystoscopy with placement of left double-J catheter Anesthesia: MAC Surgeon: Franki Aguirre Pathology: none sent Condition: stable Disposition: PACU Indications for Procedure: The patient is a 67-year-old female admitted yesterday with left flank pain who was discovered to have left hydroureteronephrosis secondary to distal left ureteral calculi from a calculus that recently migrated out of the left kidney. There is concern that the patient may also be septic as she had a low-grade fever yesterday. Cystoscopy with placement of a left double-J catheters planned to ensure good drainage from the left kidney which allowed better antibiotic penetration into the kidney. Description of Procedure: The patient was taken to the operating suite where intravenous sedation was given. She was placed in the dorsal lithotomy position with her legs suspended from padded Saulo stirrups. Pneumatic compression stockings were applied to the lower legs. The genitalia was prepped with Betadine solution and draped in a sterile fashion. The external genitalia and urethral meatus were unremarkable. The 22-Swazi cystoscope sheath with 30 lens was passed through the urethra and into the bladder. Both ureteral orifices were of normal location and configuration. Bladder was free of tumor foreign body and diverticulum. A straight 0.035 Zipwire was advanced through the left ureteral orifice and up to the region of the left kidney. The Glidewire was advanced beyond the calculus without difficulty. A 6-Swazi by 22 cm double-J catheter was then advanced over the Glidewire and positioned so that the proximal end coiled in the region of the renal pelvis and the distal end coiled in the bladder purulent urine drained from the double-J catheter once it was in place. The bladder was drained and the cystoscope was withdrawn. Patient tolerated procedure well and left the operative room awake and in satisfactory condition. There was no blood loss. Elective ureteroscopy with lithotripsy will be set up sometime in August once it is clear whether or not the patient had a urinary tract infection complicating management of the stone.
--- NOTE | 2018-08-08 15:13 | FL ---
EXAMINATION TYPE: FL guidance operating room DATE OF EXAM: 08/08/2018 CLINICAL HISTORY: Left double-J stent placement TECHNIQUE: Fluoroscopy. COMPARISON: None. FINDINGS: Fluoroscopic guidance was provided during procedure performed by Dr. Strauss. A total of 1 minute seconds of fluoroscopic time was utilized during the procedure and 1 spot images was acquired during placement of a left ureteral stent. IMPRESSION: As Above.
--- NOTE | 2018-08-08 15:35 | P.HPIM ---
History of Present Illness Patient is a pleasant 67-year-old female came in because of acute kidney injury patient patient was having severe left-sided flank pain has been going on for 2 days found to have nephrolithiasis bilateral hydronephrosis and the patient had fever of 100.5 patient was being treated for urinary tract infection presently denied any dysuria. Patient was on ciprofloxacin as an outpatient presently and levofloxacin. Patient was noted to have ALLERGY to penicillin which is not actually an ALLERGY but a side effect and patient will be started on Rocephin, levofloxacin will be discontinued urine cultures were obtained. A since crea tinine went up from 1.96-3.35, baseline appears to be 1.09 and this appears to be secondary to obstructive uropathy and urology was consulted patient is going for J-tube placement on the left side. Patient's bicarbonate is 16 patient is on IV bicarbonate drip at this time. Patient had associated nausea and vomiting. Review of Systems REVIEW OF SYSTEMS: CONSTITUTIONAL: As mentioned in HPI HEENT: No recent visual problems or hearing problems. Denied any sore throat. CARDIOVASCULAR: No chest pain, orthopnea, PND, no palpitations, no syncope. PULMONARY: No shortness of breath, no cough, no hemoptysis. GASTROINTESTINAL: No diarrhea, NEUROLOGICAL: No headaches, no weakness, no numbness. HEMATOLOGICAL: Denies any bleeding or petechiae. GENITOURINARY: As mentioned in HPI MUSCULOSKELETAL/RHEUMATOLOGICAL: Denies any joint pain, swelling, or any muscle pain. ENDOCRINE: Denies any polyuria or polydipsia. The rest of the 14-point review of systems is negative. Past Medical History Past Medical History: Diabetes Mellitus, Hypertension, Neurologic Disorder Additional Past Medical History / Comment(s): NEUROPATHY, MIGRAINES, fractured right shoulder History of Any Multi-Drug Resistant Organisms: None Reported Past Surgical History: Bariatric Surgery, Bladder Surgery, Hysterectomy Additional Past Surgical History / Comment(s): ORAL SURGERY. COLONOSCOPY. LAP BAND THEN HAD BARIATRIC SURGERY; bladder surgery may have been for a benign cyst but is not sure Past Anesthesia/Blood Transfusion Reactions: No Reported Reaction Past Psychological History: Anxiety, Depression Smoking Status: Never smoker Past Alcohol Use History: None Reported Past Drug Use History: None Reported - Past Family History Mother Family Medical History: Diabetes Mellitus Additional Family Medical History / Comment(s): At [facility] with UTI. Father Family Medical History: CVA/TIA, Diabetes Mellitus Sister(s) Family Medical History: Deep Vein Thrombosis (DVT) Medications and Allergies Home Medications Medication Instructions Recorded Confirmed Type Atorvastatin Calcium [Lipitor] 10 mg PO MOWE 05/15/18 08/07/18 History Hydrocodone/Acetaminophen [Hurricane 1 tab PO HS 05/15/18 08/07/18 History 5-325] Metoprolol Tartrate 25 mg PO BID 05/15/18 08/07/18 History Oxybutynin Chloride 5 mg PO BID 05/15/18 08/07/18 History buPROPion XL [Wellbutrin Xl] 150 mg PO DAILY 05/15/18 08/07/18 History Ciprofloxacin HCl [Cipro] 500 mg PO BID 08/07/18 08/07/18 History Allergies Allergy/AdvReac Type Severity Reaction Status Date / Time meperidine [From Demerol] Allergy Nausea & Verified 08/07/18 16:59 Vomiting Sulfa (Sulfonamide Allergy Nausea & Verified 08/07/18 16:59 Antibiotics) Vomiting Penicillins AdvReac Shakiness Verified 08/07/18 16:59 Physical Exam Vitals: Vital Signs Temp Pulse Pulse Resp BP BP Pulse Ox 08/08/18 15:25 67 16 133/57 98 08/08/18 15:10 85 16 112/55 100 08/08/18 14:55 98.9 F 87 20 117/64 100 08/08/18 13:18 97.5 F L 61 16 101/64 92 L 08/08/18 11:18 98.5 F 88 16 87/55 95 08/08/18 08:30 99.0 F 83 16 95/46 08/08/18 05:49 98.9 F 08/08/18 04:10 100.5 F H 97 16 111/67 98 08/07/18 20:35 97.8 F 87 16 121/80 96 08/07/18 18:58 97.0 F L 79 18 113/56 99 08/07/18 18:30 78 24 113/56 97 08/07/18 16:45 98.0 F 71 16 138/64 99 Intake and Output 08/08/18 08/08/18 08/08/18 06:59 14:59 22:59 Intake Total 600 350 300 Output Total 0 Balance 600 350 300 Intake: IV 350 300 Intake, IV Titration 600 Amount Sodium Chloride 0.9% 1, 600 000 ml @ 75 mls/hr IV . [id number] [facility] Rx#:[id number] Output: Estimated Blood Loss 0 Other: Voiding Method Toilet Toilet # Voids 1 3 PHYSICAL EXAMINATION: GENERAL: The patient is alert and oriented x3, not in any acute distress. Well developed, well nourished. HEENT: Pupils are round and equally reacting to light. EOMI. No scleral icterus. No conjunctival pallor. Normocephalic, atraumatic. No pharyngeal erythema. No thyromegaly. CARDIOVASCULAR: S1 and S2 present. No murmurs, rubs, or gallops. PULMONARY: Chest is clear to auscultation, no wheezing or crackles. ABDOMEN: Soft, she does have left flank tenderness nondistended, normoactive bowel sounds. No palpable organomegaly. MUSCULOSKELETAL: No joint swelling or deformity. EXTREMITIES: No cyanosis, clubbing, or pedal edema. NEUROLOGICAL: Gross neurological examination did not reveal any focal deficits. SKIN: No rashes. Results CBC & Chem 7: 08/07/18 15:00 08/08/18 10:26 Labs: Abnormal Lab Results - Last 24 Hours (Table) 08/07/18 08/07/18 08/07/18 Range/Units 15:00 15:15 20:31 Potassium 5.8 H (3.5-5.1) mmol/L Chloride 115 H (98-107) mmol/L Carbon Dioxide 16 L (22-30) mmol/L BUN 33 H (7-17) mg/dL Creatinine 1.96 H (0.52-1.04) mg/dL Glucose 127 H (74-99) mg/dL POC Glucose (mg/dL) 120 H (75-99) mg/dL Total Protein 6.2 L (6.3-8.2) g/dL Urine Appearance Cloudy H (Clear) Urine Protein 1+ H (Negative) Urine Blood Small H (Negative) Ur Leukocyte Esterase Large H (Negative) Urine RBC 26 H (0-5) /hpf Urine WBC >182 H (0-5) /hpf Urine WBC Clumps Few H (None) /hpf Urine Bacteria Rare H (None) /hpf Urine Mucus Rare H (None) /hpf 08/07/18 08/08/18 Range/Units 21:39 10:26 Potassium 5.2 H 5.3 H (3.5-5.1) mmol/L Chloride 116 H (98-107) mmol/L Carbon Dioxide 14 L (22-30) mmol/L BUN 44 H (7-17) mg/dL Creatinine 3.35 H (0.52-1.04) mg/dL Glucose 153 H (74-99) mg/dL POC Glucose (mg/dL) (75-99) mg/dL Total Protein (6.3-8.2) g/dL Urine Appearance (Clear) Urine Protein (Negative) Urine Blood (Negative) Ur Leukocyte Esterase (Negative) Urine RBC (0-5) /hpf Urine WBC (0-5) /hpf Urine WBC Clumps (None) /hpf Urine Bacteria (None) /hpf Urine Mucus (None) /hpf Microbiology - Last 24 Hours (Table) 08/08/18 00:05 Urine Culture - Preliminary Urine,Clean Catch Thrombosis Risk Factor Assmnt - Choose All That Apply Each Factor Represents 1 point: Obesity (BMI >25) Each Risk Factor Represents 2 Points: Age 61-74 years Other congenital or acquired thrombophilia - If yes, enter type in comment: No Thrombosis Risk Factor Assessment Total Risk Factor Score: 3 Thrombosis Risk Factor Assessment Level: Moderate Risk Assessment and Plan Plan: -Sepsis: Secondary to urinary tract infection which is again secondary to nephrolithiasis patient appears to have struvite stone. Patient will undergo J- tube placement and lithotripsy. Patient was started on Rocephin urine cultures are pending -Acute renal failure: Secondary to obstructive uropathy. Bilateral hydronephrosis was appreciated patient underwent J-tube placement today -Hyperkalemia secondary to acute kidney injury continue with IV fluids as ment ioned above -Non-Anion gap metabolic acidosis secondary to acute renal failure IV bicarbonate drip as mentioned above -Type 2 diabetes mellitus next and-hypertension -Depression and anxiety Patient will need pharmacologic GI and due to prophylaxis
[2018-08-08] MEDS: OXYBUTYNIN CHLORIDE 5 MG TAB PO SCH ×2 (16:08→20:16)
[2018-08-08] MEDS: DEXTROSE 5% IN WATER 1,000 ML with SODIUM BICARB (1 MEQ/ML) 150 ML IV SCH (16:15)
[2018-08-08] MEDS: buPROPion XL 150 MG TAB.ER.24H PO SCH (16:17)
[2018-08-08] MEDS: HEPARIN SODIUM,PORCINE 5,000 UNIT/ML 1 ML VIAL SQ SCH (16:18)
[2018-08-08] MEDS: FAMOTIDINE 20 MG TAB PO SCH (20:16)
[2018-08-09] MEDS: HYDROcodone/APAP 5-325MG 1 EACH TAB PO PRN ×4 (00:16→22:20)
[2018-08-09] MEDS: HEPARIN SODIUM,PORCINE 5,000 UNIT/ML 1 ML VIAL SQ SCH ×4 (00:22→23:28)
[2018-08-09] MEDS: DEXTROSE 5% IN WATER 1,000 ML with SODIUM BICARB (1 MEQ/ML) 150 ML IV SCH ×2 (02:55→20:08)
[2018-08-09 08:12] LABS: Magnesium 1.8 mg/dL (1.6-2.3); Potassium 4.8 mmol/L (3.5-5.1)
[2018-08-09] MEDS: buPROPion XL 150 MG TAB.ER.24H PO SCH (09:40)
[2018-08-09] MEDS: OXYBUTYNIN CHLORIDE 5 MG TAB PO SCH ×2 (09:41→20:23)
[2018-08-09] MEDS: FAMOTIDINE 20 MG TAB PO SCH (09:41)
[2018-08-09] MEDS: METOPROLOL TARTRATE 25 MG TAB PO SCH ×2 (09:41→20:23)
--- NOTE | 2018-08-09 10:53 | P.PN ---
Subjective Patient is seen in follow-up for acute kidney injury. Patient presented to the hospital with left flank pain. She was noted to have bilateral hydronephrosis and nephrolithiasis. Patient underwent left-sided ureteral stent placement on August 08. Creatinine peaked at 3.35 yesterday and is down to 2.5 today. She admits to good urine output. No vomiting or diarrhea. Vital signs are stable. General: The patient appeared well nourished and normally developed. HEENT: Head exam is unremarkable. Neck is without jugular venous distension. LUNGS: Lungs are clear to auscultation and percussion. Breath sounds decreased. HEART: Rate and Rhythm are regular. First and second heart sounds normal. No murmurs, rubs or gallops. ABDOMEN: Abdominal exam reveals normal bowel sounds. Non-tender and non- distended. No evidence of peritonitis. EXTREMITITES: No clubbing, cyanosis, or edema. Objective - Vital Signs Vital signs: Vital Signs Temp 97.8 F 08/09/18 05:00 Pulse 98 08/09/18 05:00 Resp 18 08/09/18 05:00 BP 145/71 08/09/18 05:00 Pulse Ox 96 08/09/18 05:00 Intake & Output 08/08/18 08/09/18 08/09/18 18:59 06:59 18:59 Intake Total 650 720 Output Total 0 Balance 650 720 Intake: IV 650 Oral 720 Output: Estimated Blood Loss 0 Other: Voiding Method Toilet Toilet # Voids 1 2 - Labs CBC & Chem 7: 08/07/18 15:00 08/09/18 07:35 Labs: Abnormal Lab Results - Last 24 Hours (Table) 08/08/18 08/08/18 08/09/18 Range/Units 10:26 15:52 07:35 Sodium 136 L (137-145) mmol/L Potassium 5.3 H 5.3 H (3.5-5.1) mmol/L Chloride 116 H 110 H (98-107) mmol/L Carbon Dioxide 14 L 16 L (22-30) mmol/L BUN 44 H 45 H (7-17) mg/dL Creatinine 3.35 H 2.58 H (0.52-1.04) mg/dL Glucose 153 H 152 H (74-99) mg/dL Calcium 8.0 L (8.4-10.2) mg/dL Microbiology - Last 24 Hours (Table) 08/08/18 00:05 Urine Culture - Preliminary Urine,Clean Catch Assessment and Plan Plan: Assessment: 1. Acute kidney injury secondary to obstructive uropathy. Creatinine peaked at 3.35 this admission and is down to 2.5 today. Bilateral hydronephrosis noted on CT of the abdomen and pelvis. Creatinine in November 2017 was 0.8-1.1. 2. Hyperkalemia secondary to acute kidney injury and metabolic acidosis. Better. 3. Metabolic acidosis secondary to acute kidney injury and IV fluids. Slightly improved. 4. Bilateral nephrolithiasis and hydronephrosis status post left ureteral stent placement on July 31. 5. Pyuria. Urine culture pending. Plan: Maintain bicarb drip at 75 mL an hour. Avoid nephrotoxins. Repeat electrolytes in the morning. Add oral sodium bicarbonate.
--- NOTE | 2018-08-09 12:29 | P.PN ---
Progress Note - Text Progress Note Date: 08/09/18 The patient is afebrile and says that she feels better than yesterday. Her main complaint at the present is a headache. She has been voiding and says that her urine is intermittently cloudy. She remains in metabolic acidosis with a bicarbonate of 16. BUN/creatinine are improved at 45/2.58. Urine culture is pending. The patient will be continued on antibiotics until year urine culture has been finalized. He remains unclear whether the fever she had at the time of admission was from an infection or merely from the obstructive calculi.
[2018-08-09] MEDS: SODIUM BICARBONATE TAB 650 MG TAB PO SCH ×2 (13:18→20:22)
[2018-08-09] MEDS ORDERED: BUTALB/APAP/CAFF 50-325-40MG TAB PO PRN (14:20)
--- NOTE | 2018-08-09 15:14 | P.PN ---
Subjective 67-year-old admitted with the left-sided nephrolithiasis and sepsis secondary to urinary tract infection and nephrolithiasis or obstructive uropathy secondary to that. Patient is presently on ceftriaxone. Urine cultures are negative as patient was already partially treated with antibiotics as an outpatient. Patient's creatinine is around 2.5 today continue with IV fluids. Creatinine tomorrow can you total bicarbonate possibly of discharge tomorrow patient the pain significant improved patient is complaining of some headache today. Constitutional: Denied any fatigue denied any fever. Cardio vascular: denied any chest pain, palpitations Gastrointestinal denied any nausea vomiting Pulmonary: Denied any shortness of breath cough Neurologic denied any new focal deficits All inpatient medications were reviewed and appropriate changes in these medications as dictated in the interval history and assessment and plan. Objective - Vital Signs Vital signs: Vital Signs Temp 99.2 F 08/09/18 12:07 Pulse 82 08/09/18 12:07 Resp 17 08/09/18 12:07 BP 110/61 08/09/18 12:07 Pulse Ox 94 L 08/09/18 12:07 Intake & Output 08/08/18 08/09/18 08/09/18 18:59 06:59 18:59 Intake Total 650 720 Output Total 0 Balance 650 720 Intake: IV 650 Oral 720 Output: Estimated Blood Loss 0 Other: Voiding Method Toilet Toilet Toilet # Voids 1 2 - Exam PHYSICAL EXAMINATION: GENERAL: The patient is alert and oriented x3, not in any acute distress. Well developed, well nourished. HEENT: Pupils are round and equally reacting to light. EOMI. No scleral icterus. No conjunctival pallor. Normocephalic, atraumatic. No pharyngeal erythema. No thyromegaly. CARDIOVASCULAR: S1 and S2 present. No murmurs, rubs, or gallops. PULMONARY: Chest is clear to auscultation, no wheezing or crackles. ABDOMEN: Soft, nontender, nondistended, normoactive bowel sounds. No palpable organomegaly. MUSCULOSKELETAL: No joint swelling or deformity. EXTREMITIES: No cyanosis, clubbing, or pedal edema. NEUROLOGICAL: Gross neurological examination did not reveal any focal deficits. SKIN: No rashes. - Labs CBC & Chem 7: 08/07/18 15:00 08/09/18 07:35 Labs: Abnormal Lab Results - Last 24 Hours (Table) 08/08/18 08/09/18 Range/Units 15:52 07:35 Sodium 136 L (137-145) mmol/L Potassium 5.3 H (3.5-5.1) mmol/L Chloride 110 H (98-107) mmol/L Carbon Dioxide 16 L (22-30) mmol/L BUN 45 H (7-17) mg/dL Creatinine 2.58 H (0.52-1.04) mg/dL Glucose 152 H (74-99) mg/dL Calcium 8.0 L (8.4-10.2) mg/dL Microbiology - Last 24 Hours (Table) 08/08/18 00:05 Urine Culture - Final Urine,Clean Catch Assessment and Plan Plan: -Sepsis: Secondary to urinary tract infection which is again secondary to nep hrolithiasis patient appears to have struvite stone. patient underwent a cystoscopy lithotripsy and a J-tube placement urine cultures are negative continue with Rocephin. patient is feeling much better -Acute renal failure: Secondary to obstructive uropathy. Bilateral hydronephrosis was appreciated patient underwent J-tube placement todaypatient's creatinine improved from 3.5-2.5 -Hyperkalemia secondary to acute kidney injury continue with IV fluids as mentioned above -Non-Anion gap metabolic acidosis secondary to acute renal failure IV bicarbonate drip is being continued -Type 2 diabetes mellitus -hypertension -Depression and anxiety Patient will need pharmacologic GI and DVT prophylaxis
[2018-08-09 20:04] LABS: Hemoglobin A1C 5.9 % (4.0-6.0)
[2018-08-09] MEDS: ATORVASTATIN 10 MG TAB PO SCH (20:23)
[2018-08-09 21:15] VITALS: RESP 18
[2018-08-10 04:53] VITALS: BP 114/67; PULSE 59; TEMP 98
[2018-08-10] MEDS: HYDROcodone/APAP 5-325MG 1 EACH TAB PO PRN (05:38)
[2018-08-10] MEDS ORDERED: FAMOTIDINE 20 MG TAB PO SCH (09:00)
--- NOTE | 2018-08-10 09:20 | P.PN ---
Subjective Patient is seen in follow-up for acute kidney injury. Patient presented to the hospital with left flank pain. She was noted to have bilateral hydronephrosis and nephrolithiasis. Patient underwent left-sided ureteral stent placement on August 08. Creatinine peaked at 3.35 this admission and was down to 2.58 of yesterday. She admits to good urine output. No vomiting or diarrhea. Overall feels better today. Vital signs are stable. General: The patient appeared well nourished and normally developed. HEENT: Head exam is unremarkable. Neck is without jugular venous distension. LUNGS: Lungs are clear to auscultation and percussion. Breath sounds decreased. HEART: Rate and Rhythm are regular. First and second heart sounds normal. No murmurs, rubs or gallops. ABDOMEN: Abdominal exam reveals normal bowel sounds. Non-tender and non-distende d. No evidence of peritonitis. EXTREMITITES: No clubbing, cyanosis, or edema. Objective - Vital Signs Vital signs: Vital Signs Temp 98 F 08/10/18 04:53 Pulse 59 L 08/10/18 04:53 Resp 18 08/10/18 04:53 BP 114/67 08/10/18 04:53 Pulse Ox 97 08/10/18 04:53 Intake & Output 08/09/18 08/10/18 08/10/18 18:59 06:59 18:59 Intake Total 650 600 Balance 650 600 Intake: IV 600 Dextrose 5% in Water 1, 600 000 ml @ 75 mls/hr IV . [id number] [facility] with Sodium Bicarb (1 Meq/ml) 150 ml Rx#:[id number] Intake, IV Titration 650 Amount Dextrose 5% in Water 1, 600 000 ml @ 75 mls/hr IV . [id number] [facility] with Sodium Bicarb (1 Meq/ml) 150 ml Rx#:[id number] cefTRIAXone 2 gm In 50 Sodium Chloride 0.9% 50 ml @ 100 mls/hr IVPB Q24H [facility] Rx#:[id number] Other: Voiding Method Toilet Toilet # Voids 2 4 - Labs CBC & Chem 7: 08/07/18 15:00 08/09/18 07:35 Labs: Microbiology - Last 24 Hours (Table) 08/08/18 00:05 Urine Culture - Final Urine,Clean Catch Assessment and Plan Plan: Assessment: 1. Acute kidney injury secondary to obstructive uropathy. Creatinine peaked at 3.35 this admission and was down to 2.58 as of yesterday. Bilateral hydronephrosis noted on CT of the abdomen and pelvis. Creatinine in November 2017 was 0.8-1.1. 2. Hyperkalemia secondary to acute kidney injury and metabolic acidosis. Better. 3. Metabolic acidosis secondary to acute kidney injury and IV fluids. Improved. 4. Bilateral nephrolithiasis and hydronephrosis status post left ureteral stent placement on July 31. 5. Pyuria. Urine culture positive for skin loco. Plan: Discontinue bicarbonate drip. Start normal saline at 50 mL an hour. Maintain oral sodium bicarbonate. Encourage oral intake. Avoid nephrotoxins. Repeat electrolytes in the morning. Morning labs pending. If renal function improving, she can be discharged from nephrology standpoint. Will follow up outpatient in the next 1-2 weeks.
[2018-08-10] MEDS ORDERED: SODIUM CHLORIDE 0.9% 1,000 ML IV SCH (09:30)
[2018-08-10] MEDS: HEPARIN SODIUM,PORCINE 5,000 UNIT/ML 1 ML VIAL SQ SCH (09:56)
[2018-08-10] MEDS: METOPROLOL TARTRATE 25 MG TAB PO SCH (09:57)
[2018-08-10] MEDS: buPROPion XL 150 MG TAB.ER.24H PO SCH (09:57)
[2018-08-10] MEDS: OXYBUTYNIN CHLORIDE 5 MG TAB PO SCH (09:58)
[2018-08-10] MEDS: SODIUM BICARBONATE TAB 650 MG TAB PO SCH (09:58)
[2018-08-10 10:09] LABS: Calcium 7.9 mg/dL (8.4-10.2); Magnesium 1.8 mg/dL (1.6-2.3); Potassium 4.3 mmol/L (3.5-5.1)
--- NOTE | 2018-08-10 12:20 | P.PN ---
Progress Note - Text Progress Note Date: 08/10/18 The patient is afebrile and feels much better than prior to placement of the left double-J catheter. She denies any dysuria and her urine is clear. Her creatinine has improved and is 1.85 today. Urine culture grew mixed organisms consistent with vaginal contamination. In retrospect the patient was most likely symptomatic only from the distal ureteral calculus and did not have sepsis. I discussed elective left ureteroscopy with lithotripsy with the patient and her . This will be performed as an outpatient sometime in August. From my standpoint the patient does not to be discharged on an antibiotic.
--- NOTE | 2018-08-11 06:42 | DS ---
DISCHARGE SUMMARY DATE OF ADMISSION: 08/07/2018 DATE OF DISCHARGE: 08/10/2018. FINAL DIAGNOSES: 1. Acute urinary tract infection with sepsis, possibly secondary to pyelonephritis. 2. Acute renal failure secondary to obstructive uropathy. 3. Hyperkalemia secondary to acute renal failure. 4. Non-anion gap metabolic acidosis due to renal failure. 5. Diabetes mellitus type 2. 6. Essential hypertension. 7. Depression, anxiety, not otherwise specified. PROCEDURE: Left ureter double-J stent placement. CONSULTATION: Dr. Hamlin and colleagues from Nephrology; Dr. Aguirre from Urology. HOSPITAL COURSE: This pleasant 67-year-old patient presented with left-sided flank pain for 2 days with a fever with outpatient treated with ciprofloxacin. Did have a CT scan of the abdomen and pelvis. The patient was found to have bilateral nephrolithiasis. There were calculi on both sides. There was also left-sided hydroureter with multiple calculi in the distal aspect of the left ureter. Bilateral hydronephrosis was suspected. Subsequently patient underwent double-J catheter placed on the left side. Since the patient is already on antibiotic before coming in; hence cultures were felt to be negative. Today, patient is feeling much better, tolerating a diet. Care was discussed at length with the patient and . Renal function is improving. Creatinine has come down from 3.35 down to 1.859. Cleared by Nephrology. Hyperkalemia also corrected. Acidosis is also corrected. Questions were answered. On examination, temperature 98, pulse 59, respiration 18, blood pressure 114/67. ABDOMEN: Soft, nontender. Potassium 4.3. BUN 38, creatinine 1.85. DISCHARGE MEDICATIONS: 1. Lipitor 10 mg Tuesday, Tuesday. 2. Cool 5 one tablet q.h.s. 3. Metoprolol 25 mg b.i.d. 4. Oxybutynin 5 mg b.i.d. 5. Wellbutrin XL 150 mg p.o. daily. 6. Ceftin 250 mg p.o. b.i.d. for 10 tablets. Follow up with Dr. Navas on 08/11/2018; Dr. Aguirre in one week; Dr. Hamlin in one week. BMP on 08/14/2018. Discussion and discharge planning more than 35 minutes. MMODL / IJN: [id number] /
== END 2018-08-10 12:29 | disposition home or self-care (01) | DRG 854 ==
LOC: EC 13:58 → 3NMEDONC 17:47
PROVIDERS: ADMIT Hospitalist; ATTEND Hospitalist
PROC: 0T778DZ Dilation of Left Ureter with Intraluminal Device, Via Natural or Artificial Opening Endoscopic (ICD-10-PCS; principal; 2018-08-08 10:10)
DX: A41.9 Sepsis, unspecified organism (principal); N13.6 Pyonephrosis; E87.2 Acidosis; N17.9 Acute kidney failure, unspecified; E11.40 Type 2 diabetes mellitus with diabetic neuropathy, unspecified; E87.5 Hyperkalemia; F32.9 Major depressive disorder, single episode, unspecified; F41.9 Anxiety disorder, unspecified; I10 Essential (primary) hypertension; G43.909 Migraine, unspecified, not intractable, without status migrainosus; Z79.899 Other long term (current) drug therapy; Z90.710 Acquired absence of both cervix and uterus; Z87.442 Personal history of urinary calculi; Z98.84 Bariatric surgery status; Z88.5 Allergy status to narcotic agent; Z88.0 Allergy status to penicillin; Z88.2 Allergy status to sulfonamides; Z83.3 Family history of diabetes mellitus; Z83.2 Family history of diseases of the blood and blood-forming organs and certain disorders involving the immune mechanism
CPT/HCPCS: 36415; 74176; 80048; 80053; 81001; 82150; 83036; 83690; 83735; 84132; 85025; 87086; 93005; 96365; 96367; 96375; 99285

== ENCOUNTER 2018-08-31 16:02 | Inpatient (IN) | payer MEDICARE ==
[2018-08-31] MEDS: SODIUM CHLORIDE 0.9% 1,000 ML IV STA ×2 (16:54→22:55)
[2018-08-31 16:59] LABS: Basophils % (A) 0 %; Eosinophils # (A) 0.3 k/uL (0-0.7); Eosinophils % (A) 5 %; HCT 37.6 % (34.0-46.0); HGB 11.8 gm/dL (11.4-16.0); Hypochromasia Slight; Lymphocytes # (A) 2.2 k/uL (1.0-4.8); Lymphocytes % (A) 40 %; MCH 29.5 pg (25.0-35.0); MCHC 31.3 g/dL (31.0-37.0); MCV 94.1 fL (80.0-100.0); Monocytes # (A) 0.3 k/uL (0-1.0); Monocytes % (A) 5 %; Neutrophils # (A) 2.6 k/uL (1.3-7.7); Neutrophils % (A) 46 %; Platelet Count 213 k/uL (150-450); RBC 3.99 m/uL (3.80-5.40); WBC 5.5 k/uL (3.8-10.6)
[2018-08-31 17:08] LABS: Albumin 4.2 g/dL (3.5-5.0); Calcium 9.4 mg/dL (8.4-10.2); Magnesium 1.9 mg/dL (1.6-2.3); Phosphorus 4.8 mg/dL (2.5-4.5); Potassium 5.9 mmol/L (3.5-5.1); Total Bilirubin 0.5 mg/dL (0.2-1.3); Total Protein 6.9 g/dL (6.3-8.2)
[2018-08-31] MEDS ORDERED: NITROGLYCERIN SL TABS 0.4 MG TAB SUBLINGUAL PRN (17:51)
[2018-08-31] MEDS ORDERED: ASPIRIN 81 MG PO STA (17:51)
--- NOTE | 2018-08-31 17:56 | ED ---
Arrhythmia/Palpitations HPI - General Chief Complaint: Arrhythmia/Palpitations Stated Complaint: Elevated Hert rate Time Seen by Provider: 08/31/18 16:23 Source: patient, RN notes reviewed, old records reviewed Mode of arrival: wheelchair Limitations: no limitations - History of Present Illness Initial Comments: This is a 67-year-old female the ER for evaluation. Presents today for evaluation regards to evaluation of abnormal heart rate. Patient was found at arrhythmia. Patient was scheduled to get a kidney stone removed today was unable to procedure secondary to heart rate in the 200s. Patient presents with rhythm strips. No history of STD SVT she does have history of cardiac catheterization which she believes is negative. No chest pain or shortness of breath no current symptoms MD Complaint: rapid heart beat, "heart racing", atrial fibrillation -: hour(s) Context: other (Noted on rhythm strip during preop examination) Arrhythmia History: SVT Associated Symptoms: denies other symptoms - Related Data Home Medications Medication Instructions Recorded Confirmed Atorvastatin Calcium [Lipitor] 10 mg PO MOWEFR@2100 05/15/18 08/31/18 Hydrocodone/Acetaminophen [[place] 1 tab PO HS 05/15/18 08/31/18 5-325] Metoprolol Tartrate 25 mg PO BID 05/15/18 08/31/18 Oxybutynin Chloride 5 mg PO BID 05/15/18 08/31/18 buPROPion XL [Wellbutrin XL] 150 mg PO DAILY 05/15/18 08/31/18 Acetaminophen Tab [Tylenol Tab] 650 mg PO Q6H PRN 08/31/18 08/31/18 Allergies Allergy/AdvReac Type Severity Reaction Status Date / Time meperidine [From Demerol] AdvReac Nausea & Verified 08/31/18 17:06 Vomiting Penicillins AdvReac "FALLS Verified 08/31/18 17:06 ALOT" Sulfa (Sulfonamide AdvReac Nausea & Verified 08/31/18 17:06 Antibiotics) Vomiting Review of Systems ROS Statement: Those systems with pertinent positive or pertinent negative responses have been documented in the HPI. ROS Other: All systems not noted in ROS Statement are negative. Past Medical History Past Medical History: Diabetes Mellitus, Hypertension, Neurologic Disorder Additional Past Medical History / Comment(s): NEUROPATHY, MIGRAINES, fractured right shoulder History of Any Multi-Drug Resistant Organisms: None Reported Past Surgical History: Bariatric Surgery, Bladder Surgery, Hysterectomy Additional Past Surgical History / Comment(s): ORAL SURGERY. COLONOSCOPY. LAP BAND THEN HAD BARIATRIC SURGERY; bladder surgery may have been for a benign cyst but is not sure Past Anesthesia/Blood Transfusion Reactions: No Reported Reaction Past Psychological History: Anxiety, Depression Smoking Status: Never smoker Past Alcohol Use History: None Reported Past Drug Use History: None Reported - Past Family History Mother Family Medical History: Diabetes Mellitus Additional Family Medical History / Comment(s): At [facility] with UTI. Father Family Medical History: CVA/TIA, Diabetes Mellitus Sister(s) Family Medical History: Deep Vein Thrombosis (DVT) General Exam Limitations: no limitations General appearance: alert, in no apparent distress Head exam: Present: atraumatic, normocephalic, normal inspection Eye exam: Present: normal appearance, PERRL, EOMI. Absent: scleral icterus, conjunctival injection, periorbital swelling ENT exam: Present: normal exam, mucous membranes moist Neck exam: Present: normal inspection. Absent: tenderness, meningismus, lymphadenopathy Respiratory exam: Present: normal lung sounds bilaterally. Absent: respiratory distress, wheezes, rales, rhonchi, stridor Cardiovascular Exam: Present: regular rate, normal rhythm, normal heart sounds. Absent: systolic murmur, diastolic murmur, rubs, gallop, clicks GI/Abdominal exam: Present: soft, normal bowel sounds. Absent: distended, tenderness, guarding, rebound, rigid Extremities exam: Present: normal inspection, full ROM, normal capillary refill. Absent: tenderness, pedal edema, joint swelling, calf tenderness Back exam: Present: normal inspection Neurological exam: Present: alert, oriented X3, CN II-XII intact Psychiatric exam: Present: normal affect, normal mood Skin exam: Present: warm, dry, intact, normal color. Absent: rash Course Vital Signs 08/31/18 16:06 Temperature 98.4 F Pulse Rate 64 Respiratory 16 Rate Blood Pressure 152/70 O2 Sat by Pulse 100 Oximetry - Reevaluation(s) Reevaluation #1: 08/31/18 17:55 Medical record is reviewed Reevaluation #2: 08/31/18 17:55 Rhythm strips from facility are reviewed showing SVT Reevaluation #3: 08/31/18 17:56 Patient has no abnormal heart rate here in the ER Medical Decision Making - Medical Decision Making 67 female the ER for evaluation, patient resents today for SVT. Patient will be admitted for cardiology evaluation and observation - Lab Data Result diagrams: 08/31/18 16:45 08/31/18 16:45 Lab Results 08/31/18 08/31/18 08/31/18 Range/Units 16:45 16:45 16:45 WBC 5.5 (3.8-10.6) k/uL RBC 3.99 (3.80-5.40) m/uL Hgb 11.8 (11.4-16.0) gm/dL Hct 37.6 (34.0-46.0) % MCV 94.1 (80.0-100.0) fL MCH 29.5 (25.0-35.0) pg MCHC 31.3 (31.0-37.0) g/dL RDW 15.0 (11.5-15.5) % Plt Count 213 (150-450) k/uL Neutrophils % 46 % Lymphocytes % 40 % Monocytes % 5 % Eosinophils % 5 % Basophils % 0 % Neutrophils # 2.6 (1.3-7.7) k/uL Lymphocytes # 2.2 (1.0-4.8) k/uL Monocytes # 0.3 (0-1.0) k/uL Eosinophils # 0.3 (0-0.7) k/uL Basophils # 0.0 (0-0.2) k/uL Hypochromasia Slight Sodium 142 (137-145) mmol/L Potassium 5.9 H (3.5-5.1) mmol/L Chloride 117 H (98-107) mmol/L Carbon Dioxide 15 L (22-30) mmol/L Anion Gap 10 mmol/L BUN 39 H (7-17) mg/dL Creatinine 1.36 H (0.52-1.04) mg/dL Est GFR (CKD-EPI)AfAm 47 (>60 ml/min/1.73 sqM) Est GFR (CKD-EPI)NonAf 40 (>60 ml/min/1.73 sqM) Glucose 117 H (74-99) mg/dL Calcium 9.4 (8.4-10.2) mg/dL Phosphorus 4.8 H (2.5-4.5) mg/dL Magnesium 1.9 (1.6-2.3) mg/dL Total Bilirubin 0.5 (0.2-1.3) mg/dL AST 24 (14-36) U/L ALT 14 (9-52) U/L Alkaline Phosphatase 114 (38-126) U/L Troponin I (0.000-0.034) ng/mL NT-Pro-B Natriuret Pep 353 pg/mL Total Protein 6.9 (6.3-8.2) g/dL Albumin 4.2 (3.5-5.0) g/dL TSH 1.030 (0.465-4.680) mIU/L 08/31/18 Range/Units 16:45 WBC (3.8-10.6) k/uL RBC (3.80-5.40) m/uL Hgb (11.4-16.0) gm/dL Hct (34.0-46.0) % MCV (80.0-100.0) fL MCH (25.0-35.0) pg MCHC (31.0-37.0) g/dL RDW (11.5-15.5) % Plt Count (150-450) k/uL Neutrophils % % Lymphocytes % % Monocytes % % Eosinophils % % Basophils % % Neutrophils # (1.3-7.7) k/uL Lymphocytes # (1.0-4.8) k/uL Monocytes # (0-1.0) k/uL Eosinophils # (0-0.7) k/uL Basophils # (0-0.2) k/uL Hypochromasia Sodium (137-145) mmol/L Potassium (3.5-5.1) mmol/L Chloride (98-107) mmol/L Carbon Dioxide (22-30) mmol/L Anion Gap mmol/L BUN (7-17) mg/dL Creatinine (0.52-1.04) mg/dL Est GFR (CKD-EPI)AfAm (>60 ml/min/1.73 sqM) Est GFR (CKD-EPI)NonAf (>60 ml/min/1.73 sqM) Glucose (74-99) mg/dL Calcium (8.4-10.2) mg/dL Phosphorus (2.5-4.5) mg/dL Magnesium (1.6-2.3) mg/dL Total Bilirubin (0.2-1.3) mg/dL AST (14-36) U/L ALT (9-52) U/L Alkaline Phosphatase (38-126) U/L Troponin I <0.012 (0.000-0.034) ng/mL NT-Pro-B Natriuret Pep pg/mL Total Protein (6.3-8.2) g/dL Albumin (3.5-5.0) g/dL TSH (0.465-4.680) mIU/L Disposition Clinical Impression: Tachycardia, Palpitations, Supraventricular tachycardia Disposition: ADMITTED IP TO THIS HOSP Condition: Fair Is patient prescribed a controlled substance at d/c from ED?: No Referrals: Alejandro Navas MD [Primary Care Provider] - 1-2 days
[2018-08-31 19:44] VITALS: RESP 18
[2018-08-31 21:35] VITALS: BMI 25.6
[2018-08-31] MEDS ORDERED: HYDROcodone/APAP 5-325MG 1 EACH TAB PO PRN (21:44)
[2018-08-31] MEDS: METOPROLOL TARTRATE 50 MG TAB PO SCH (22:54)
[2018-09-01 06:17] LABS: Cholesterol 108 mg/dL (<200); HDL Cholesterol 48 mg/dL (40-60); LDL Cholesterol,Calculated 27 mg/dL (0-99); Triglycerides 163 mg/dL (<150)
[2018-09-01] MEDS: SODIUM CHLORIDE 0.9% 1,000 ML IV SCH ×2 (06:43→06:44)
[2018-09-01] MEDS: METOPROLOL TARTRATE 50 MG TAB PO SCH (07:53)
[2018-09-01] MEDS ORDERED: ASPIRIN 325 MG TAB PO SCH (09:00)
[2018-09-01] MEDS ORDERED: ATORVASTATIN 80 MG TAB PO SCH (09:00)
[2018-09-01] MEDS ORDERED: ACETAMINOPHEN TAB 325 MG TAB PO PRN (09:33)
[2018-09-01] MEDS ORDERED: OXYBUTYNIN CHLORIDE 5 MG TAB PO SCH (09:45)
[2018-09-01] MEDS ORDERED: buPROPion XL 150 MG TAB.ER.24H PO SCH (09:45)
[2018-09-01 13:34] LABS: Calcium 9.1 mg/dL (8.4-10.2); Potassium 5.4 mmol/L (3.5-5.1)
[2018-09-01 14:16] VITALS: BP 125/60; PULSE 65; TEMP 97
[2018-09-01] MEDS ORDERED: SODIUM POLYSTYRENE SULFONATE 15 GM/60 ML BOTTLE PO STA (14:40)
--- NOTE | 2018-09-01 15:50 | P.CRDCN ---
History of Present Illness Consult date: 09/01/18 History of present illness: This is a 67-year-old female with history of hypertension and also diabetes who of was at [facility] [outpatient surgical center] for urological procedure. Telemetry monitoring showed evidence of possible supraventricular tachycardia. Patient was sent to the emergency room and was admitted here for further evaluation. Patient had one bout of another " SVT" this morning. Review of the both rhythm strips is consistent with artifact with underlying sinus rhythm. Patient did not have any chest pain or palpitations. Patient is given the results of the test and reassured. Patient could be discharged home. Follow-up in the office Review of Systems As per the chart Past Medical History Past Medical History: Diabetes Mellitus, Hypertension, Neurologic Disorder Additional Past Medical History / Comment(s): NEUROPATHY, MIGRAINES, fractured right shoulder History of Any Multi-Drug Resistant Organisms: None Reported Past Surgical History: Bariatric Surgery, Bladder Surgery, Hysterectomy Additional Past Surgical History / Comment(s): ORAL SURGERY. COLONOSCOPY. LAP BAND THEN HAD BARIATRIC SURGERY; bladder surgery may have been for a benign cyst but is not sure Past Anesthesia/Blood Transfusion Reactions: No Reported Reaction Past Psychological History: Anxiety, Depression Additional Psychological History / Comment(s): Isabela is support dog. Lives with spouse, live in [facility] in [place]. Patient uses an electric wheelchair for long distance. Smoking Status: Never smoker Past Alcohol Use History: None Reported Additional Past Alcohol Use History / Comment(s): TRIED SMOKING AT AGE 18 DID LIKE IT Past Drug Use History: None Reported - Past Family History Mother Family Medical History: Diabetes Mellitus Additional Family Medical History / Comment(s): At [facility] with UTI. Father Family Medical History: CVA/TIA, Diabetes Mellitus Sister(s) Family Medical History: Deep Vein Thrombosis (DVT) Medications and Allergies Home Medications Medication Instructions Recorded Confirmed Type Atorvastatin Calcium [Lipitor] 10 mg PO MOWEFR@2100 05/15/18 08/31/18 History Hydrocodone/Acetaminophen [[place] 1 tab PO HS 05/15/18 08/31/18 History 5-325] Oxybutynin Chloride 5 mg PO BID 05/15/18 08/31/18 History buPROPion XL [Wellbutrin XL] 150 mg PO DAILY 05/15/18 08/31/18 History Acetaminophen Tab [Tylenol] 650 mg PO Q6H PRN 08/31/18 08/31/18 History Metoprolol Tartrate [Lopressor] 50 mg PO BID #60 tab 09/01/18 Rx Allergies Allergy/AdvReac Type Severity Reaction Status Date / Time meperidine [From Demerol] AdvReac Nausea & Verified 08/31/18 17:06 Vomiting Penicillins AdvReac "FALLS Verified 08/31/18 17:06 ALOT" Sulfa (Sulfonamide AdvReac Nausea & Verified 08/31/18 17:06 Antibiotics) Vomiting Physical Exam Vitals: Vital Signs Temp Pulse Pulse Resp BP BP Pulse Ox 09/01/18 12:00 97 F L 65 18 125/60 97 09/01/18 07:40 97.6 F 72 18 128/58 99 09/01/18 04:00 97.6 F 64 18 130/61 98 08/31/18 21:30 98.6 F 59 L 18 128/58 99 08/31/18 21:23 98.6 F 59 L 18 128/58 99 08/31/18 19:40 98.3 F 71 18 112/63 99 08/31/18 18:09 84 20 137/66 100 08/31/18 17:09 68 20 125/61 99 08/31/18 16:06 98.4 F 64 16 152/70 100 Intake and Output 09/01/18 09/01/18 09/01/18 06:59 14:59 22:59 Intake Total 1260 Balance 1260 Intake: Intake, IV Titration 800 Amount Sodium Chloride 0.9% 1, 800 000 ml @ 100 mls/hr IV . Q10H [facility] Rx#:[id number] Oral 460 Other: Voiding Method Toilet # Voids 1 1 Weight 74.1 kg GENERAL EXAM: Patient is alert and oriented and doesn't appear to be in any acute distress HEENT: Normocephalic. Normal reaction of pupils, equal size, normal range of extraocular motion. No erythema or exudates in the throat. NECK: No masses, no nuchal rigidity. CHEST: No chest wall deformity. LUNGS: Equal air entry with no crackles or wheeze. HEART: S1 and S2 normal with no audible mumurs or gallops. Regular rhythm, femorals equal on both sides.. ABDOMEN: No hepatosplenomegaly, normal bowel sounds, no guarding or rigidity. SKIN: No rashes CENTRAL NERVOUS SYSTEM: No focal deficits. EXTREMITIES: No cyanosis, clubbing or edema. Results 08/31/18 16:45 09/01/18 05:21 Cardiac Enzymes 08/31/18 08/31/18 08/31/18 Range/Units 16:45 16:45 22:34 AST 24 (14-36) U/L Troponin I <0.012 <0.012 (0.000-0.034) ng/mL 09/01/18 Range/Units 05:21 AST (14-36) U/L Troponin I <0.012 (0.000-0.034) ng/mL Lipids 09/01/18 Range/Units 05:21 Triglycerides 163 H (<150) mg/dL Cholesterol 108 (<200) mg/dL HDL Cholesterol 48 (40-60) mg/dL CBC 08/31/18 Range/Units 16:45 WBC 5.5 (3.8-10.6) k/uL RBC 3.99 (3.80-5.40) m/uL Hgb 11.8 (11.4-16.0) gm/dL Hct 37.6 (34.0-46.0) % Plt Count 213 (150-450) k/uL Comprehensive Metabolic Panel 08/31/18 09/01/18 Range/Units 16:45 05:21 Sodium 142 143 (137-145) mmol/L Potassium 5.9 H 5.4 H (3.5-5.1) mmol/L Chloride 117 H 117 H (98-107) mmol/L Carbon Dioxide 15 L 18 L (22-30) mmol/L BUN 39 H 36 H (7-17) mg/dL Creatinine 1.36 H 1.62 H (0.52-1.04) mg/dL Glucose 117 H 104 H (74-99) mg/dL Calcium 9.4 9.1 (8.4-10.2) mg/dL AST 24 (14-36) U/L ALT 14 (9-52) U/L Alkaline Phosphatase 114 (38-126) U/L Total Protein 6.9 (6.3-8.2) g/dL Albumin 4.2 (3.5-5.0) g/dL Intake and Output 09/01/18 09/01/18 09/01/18 06:59 14:59 22:59 Intake Total 1260 Balance 1260 Intake: Intake, IV Titration 800 Amount Sodium Chloride 0.9% 1, 800 000 ml @ 100 mls/hr IV . Q10H [facility] Rx#:[id number] Oral 460 Other: Voiding Method Toilet # Voids 1 1 Weight 74.1 kg 08/31/18 16:45 09/01/18 05:21 EKG Interpretations (text) Sinus rhythm Assessment and Plan (1) Calculus of ureter Status: Acute Code(s): N20.1 - CALCULUS OF URETER SNOMED Code(s): 91376625 (2) Hyperkalemia Status: Acute Code(s): E87.5 - HYPERKALEMIA SNOMED Code(s): 14424178 (3) Palpitations Status: Acute Code(s): R00.2 - PALPITATIONS SNOMED Code(s): 42892824 Plan: Patient rhythm strips are consistent with artifacts. No definite SVT noted. No further cardiac workup. When medically stable, patient could be discharged home
--- NOTE | 2018-09-01 19:53 | P.HPIM ---
History of Present Illness H&P Date: 09/01/18 Chief Complaint: Abnormal telemetry History of presenting complaint: This is a very pleasant 67-year-old patient of Dr. michelle martínez. Chronic stable medical conditions include diabetes mellitus type 2, hypertension, depression and anxiety. Patient is here about 3 weeks ago. Was found to have acute UTI with sepsis and pyelonephritis. Patient's found to have bilateral nephro lithiasis. Patient also had a left-sided hydroureter with multiple calculi and patient had a double-J catheter placed. Patient did have an appointment with urologist for removal of the same. During the preop time patient was found to have a heart rate up to 150s. Patient is admitted for the same. Patient herself is comfortable. Does no chest pain or palpitation or dizziness lightheadedness. She was comfortable and asymptomatic. Patient is admitted for the same for further cardiac evaluation. Review of systems: GEN.: None EYES: None HEENT: None NECK: None RESPIRATORY: None CARDIOVASCULAR: None GASTROINTESTINAL: None GENITOURINARY: None MUSCULOSKELETAL: None LYMPHATICS: None HEMATOLOGICAL: None PSYCHIATRY: Anxiety NEUROLOGICAL: None Past medical history: Diabetes mellitus type 2, essential hypertension, depression, anxiety, bilateral nephrolithiasis, recent left-sided pyelonephritis with a double-J catheter placement Physical examination: VITAL SIGNS: 98.4, 64, 16, 152/70, 100% room air GENERAL: Average built, sitting up, comfortable. EYES: Pupils equal. Conjunctiva normal. HEENT: External appearance of nose and ears normal, oral cavity grossly normal. NECK: JVD not raised; masses not palpable. HEART: First and second heart sounds are normal; no edema. LUNGS: Respiratory rate normal; clear to auscultation. ABDOMEN: Soft, nontender, liver spleen not palpable, no masses palpable. LYMPHATICS: No lymph nodes palpable in the axilla and neck. PSYCH: Alert and oriented x3; mood and affect normal. NEUROLOGICAL: Cranial nerves grossly intact; no facial asymmetry, power and sensation grossly intact. Investigations: Reviewed in the clinical context White count 5.5 hemoglobin 11.88 L to 13 potassium 5.9 BUN 39 creatinine 1.36 troponin 3 negative EKG tracings grossly reviewed by me shows possibly sinus rhythm Assessment: -Possible arrhythmia versus artifact, cardiology was consulted -Diabetes mellitus type 2 -Essential hypertension -Depression and anxiety not otherwise specified -Bilateral nephrolithiasis -Has a left-sided double-J stent from her recent ureter stone and recently treated for pyelonephritis. -Hyperkalemia secondary to renal failure -Chronic kidney disease stage III probably from nephrosclerosis Plan: Home medications are resumed. Repeat patient's potassium. Cardiology was consulted. Care was discussed with the patient and . Patient's been asymptomatic from a cardiac standpoint. Patient may require Kayexalate. Past Medical History Past Medical History: Diabetes Mellitus, Hypertension, Neurologic Disorder Additional Past Medical History / Comment(s): NEUROPATHY, MIGRAINES, fractured right shoulder History of Any Multi-Drug Resistant Organisms: None Reported Past Surgical History: Bariatric Surgery, Bladder Surgery, Hysterectomy Additional Past Surgical History / Comment(s): ORAL SURGERY. COLONOSCOPY. LAP BAND THEN HAD BARIATRIC SURGERY; bladder surgery may have been for a benign cyst but is not sure Past Anesthesia/Blood Transfusion Reactions: No Reported Reaction Past Psychological History: Anxiety, Depression Additional Psychological History / Comment(s): Isabela is support dog. Lives with spouse, live in [facility] in [place]. Patient uses an electric wheelchair for long distance. Smoking Status: Never smoker Past Alcohol Use History: None Reported Additional Past Alcohol Use History / Comment(s): TRIED SMOKING AT AGE 18 DID LIKE IT Past Drug Use History: None Reported - Past Family History Mother Family Medical History: Diabetes Mellitus Additional Family Medical History / Comment(s): At [facility] with UTI. Father Family Medical History: CVA/TIA, Diabetes Mellitus Sister(s) Family Medical History: Deep Vein Thrombosis (DVT) Medications and Allergies Home Medications Medication Instructions Recorded Confirmed Type Atorvastatin Calcium [Lipitor] 10 mg PO MOWEFR@2100 05/15/18 08/31/18 History Hydrocodone/Acetaminophen [[place] 1 tab PO HS 05/15/18 08/31/18 History 5-325] Oxybutynin Chloride 5 mg PO BID 05/15/18 08/31/18 History buPROPion XL [Wellbutrin XL] 150 mg PO DAILY 05/15/18 08/31/18 History Acetaminophen Tab [Tylenol] 650 mg PO Q6H PRN 08/31/18 08/31/18 History Metoprolol Tartrate [Lopressor] 50 mg PO BID #60 tab 09/01/18 Rx Allergies Allergy/AdvReac Type Severity Reaction Status Date / Time meperidine [From Demerol] AdvReac Nausea & Verified 08/31/18 17:06 Vomiting Penicillins AdvReac "FALLS Verified 08/31/18 17:06 ALOT" Sulfa (Sulfonamide AdvReac Nausea & Verified 08/31/18 17:06 Antibiotics) Vomiting Physical Exam Vitals: Vital Signs Temp Pulse Pulse Resp BP BP Pulse Ox 09/01/18 12:00 97 F L 65 18 125/60 97 09/01/18 07:40 97.6 F 72 18 128/58 99 09/01/18 04:00 97.6 F 64 18 130/61 98 08/31/18 21:30 98.6 F 59 L 18 128/58 99 08/31/18 21:23 98.6 F 59 L 18 128/58 99 08/31/18 19:40 98.3 F 71 18 112/63 99 08/31/18 18:09 84 20 137/66 100 08/31/18 17:09 68 20 125/61 99 08/31/18 16:06 98.4 F 64 16 152/70 100 Intake and Output 08/31/18 09/01/18 09/01/18 22:59 06:59 14:59 Intake Total 120 1260 Balance 120 1260 Intake: Intake, IV Titration 800 Amount Sodium Chloride 0.9% 1, 800 000 ml @ 100 mls/hr IV . Q10H [facility] Rx#:[id number] Oral 120 460 Other: Voiding Method Toilet # Voids 1 1 1 Weight 63.503 kg 74.1 kg Results CBC & Chem 7: 08/31/18 16:45 09/01/18 05:21 Labs: Abnormal Lab Results - Last 24 Hours (Table) 08/31/18 09/01/18 09/01/18 Range/Units 16:45 05:21 05:21 Potassium 5.9 H 5.4 H (3.5-5.1) mmol/L Chloride 117 H 117 H (98-107) mmol/L Carbon Dioxide 15 L 18 L (22-30) mmol/L BUN 39 H 36 H (7-17) mg/dL Creatinine 1.36 H 1.62 H (0.52-1.04) mg/dL Glucose 117 H 104 H (74-99) mg/dL Phosphorus 4.8 H (2.5-4.5) mg/dL Triglycerides 163 H (<150) mg/dL Thrombosis Risk Factor Assmnt - Choose All That Apply Each Risk Factor Represents 2 Points: Age 61-74 years Thrombosis Risk Factor Assessment Total Risk Factor Score: 2 Thrombosis Risk Factor Assessment Level: Low Risk
--- NOTE | 2018-09-01 19:56 | P.DS ---
Providers Date of admission: 08/31/18 17:56 Expected date of discharge: 09/01/18 Attending physician: Miguel A Haji Consults: 08/31/18 17:51 Consult Physician Urgent Consulting Provider: Brad Bermudez Consult Reason/Comments: svt Do you want consulting provider notified?: Yes Primary care physician: Alejandro Navas Hospital Course: Hospital course: Patient was in the preop area for a urological surgery. Patient is admitted for what was felt to be in SVT. EKG tracing was reviewed by Dr. Dr. Flores. It was felt to be on artifact. Patient had a potassium of 5.9. Repeat was 5.4. Patient's been given a dose of Kayexalate. Otherwise patient is totally asymptomatic. Consult dictation: Dr.g Flores from cardiology Physical exam: 97, 65, 18, 125/60, 97% room air Lungs are clear Cardiovascular heart sounds regular Labs: Potassium 5.4, BUN 36, creatinine 1.6 Patient Condition at Discharge: Stable Plan - Discharge Summary Discharge Rx Participant: No New Discharge Prescriptions: New Metoprolol Tartrate [Lopressor] 50 mg PO BID #60 tab Continue Oxybutynin Chloride 5 mg PO BID Hydrocodone/Acetaminophen [[place] 5-325] 1 tab PO HS buPROPion XL [Wellbutrin XL] 150 mg PO DAILY Atorvastatin Calcium [Lipitor] 10 mg PO MOWEFR@2100 Acetaminophen Tab [Tylenol] 650 mg PO Q6H PRN PRN Reason: Pain Discontinued Metoprolol Tartrate 25 mg PO BID Discharge Medication List Atorvastatin Calcium [Lipitor] 10 mg PO MOWEFR@2100 05/15/18 [History] Hydrocodone/Acetaminophen [[place] 5-325] 1 tab PO HS 05/15/18 [History] Oxybutynin Chloride 5 mg PO BID 05/15/18 [History] buPROPion XL [Wellbutrin XL] 150 mg PO DAILY 05/15/18 [History] Acetaminophen Tab [Tylenol] 650 mg PO Q6H PRN 08/31/18 [History] Metoprolol Tartrate [Lopressor] 50 mg PO BID #60 tab 09/01/18 [Rx] Follow up Appointment(s)/Referral(s): Duglas Orozco MD [STAFF PHYSICIAN] - 10/03/18 3:00 pm (Arrive to appointment for ECHO, then follow up with Dr. Orozco after. ) Alejandro Navas MD [Primary Care Provider] - 09/13/18 10:40 am Patient Instructions/Handouts: Supraventricular Tachycardia (DC), Hyperkalemia (DC) Discharge Disposition: HOME SELF-CARE
== END 2018-09-01 15:25 | disposition home or self-care (01) | DRG 309 ==
LOC: EC 16:02 → 3SCARD 17:56
PROVIDERS: ADMIT Hospitalist; ATTEND Hospitalist
DX: R00.2 Palpitations (principal); N20.1 Calculus of ureter; E11.22 Type 2 diabetes mellitus with diabetic chronic kidney disease; E11.40 Type 2 diabetes mellitus with diabetic neuropathy, unspecified; E87.5 Hyperkalemia; N18.3 Chronic kidney disease, stage 3 (moderate); F32.9 Major depressive disorder, single episode, unspecified; F41.9 Anxiety disorder, unspecified; I12.9 Hypertensive chronic kidney disease with stage 1 through stage 4 chronic kidney disease, or unspecified chronic kidney disease; G43.909 Migraine, unspecified, not intractable, without status migrainosus; Z79.899 Other long term (current) drug therapy; Z87.442 Personal history of urinary calculi; Z90.710 Acquired absence of both cervix and uterus; Z98.84 Bariatric surgery status; Z88.5 Allergy status to narcotic agent; Z88.0 Allergy status to penicillin; Z88.2 Allergy status to sulfonamides; Z83.3 Family history of diabetes mellitus; Z82.3 Family history of stroke; Z82.49 Family history of ischemic heart disease and other diseases of the circulatory system
CPT/HCPCS: 36415; 80048; 80053; 80061; 83735; 83880; 84100; 84443; 84484; 85025; 93005; 99285

== ENCOUNTER → 2018-10-26 | Outpatient (CLI) | payer MEDICARE ==
--- NOTE | 2018-10-26 11:44 | US ---
EXAMINATION TYPE: US kidneys/renal and bladder DATE OF EXAM: 10/26/2018 COMPARISON: NONE CLINICAL HISTORY: N13.30 Unspecified hydronephrosis. EXAM MEASUREMENTS: Right Kidney: 8.3 x 3.3 x 4.1 cm Left Kidney: 7.9 x 3.9 x 4.3 cm Patient of large body habitus with severe overlying bowel gas, unable to roll LLD, technically diffic ult and very limited study. Right Kidney: Severe hydronephrosis, limited visualization, atrophy with severe cortical thinning. Left Kidney: limited visualization, obscured and superior and inferior poles, atrophied Bladder: situated inferior, severely limited views There is no evidence for hydronephrosis on the left. The known renal calculi are not identified No vines spicious masses are seen. The urinary bladder is suboptimally evaluated. IMPRESSION: 1. Severe right hydronephrosis appearing chronic with severe right cortical renal thinning. 2. Sonographic sequela medical renal disease bilaterally with renal atrophy. 3. Extremely limited evaluation of the urinary bladder. 4. The known renal calculi are not visualized.
== END | disposition home or self-care (01) ==
LOC: RADUSWWP 10:29
PROVIDERS: ATTEND Urology
DX: N13.39 Other hydronephrosis (principal); N28.89 Other specified disorders of kidney and ureter; N26.1 Atrophy of kidney (terminal); Z88.0 Allergy status to penicillin; Z88.2 Allergy status to sulfonamides; Z88.5 Allergy status to narcotic agent; Z98.890 Other specified postprocedural states
CPT/HCPCS: 76770

== ENCOUNTER → 2018-10-28 | Outpatient (CLI) | payer MEDICARE ==
--- NOTE | 2018-10-28 17:52 | MR ---
EXAMINATION TYPE: MR lumbar spine wo con DATE OF EXAM: 10/28/2018 COMPARISON: None HISTORY: Low back pain TECHNIQUE: Multiplanar, multisequence images of the lumbar spine were acquired. Vertebra have normal alignment. There is some degenerative disc space narrowing throughout the lumbar spine and more at L3-4 L4-5. There is small posterior disc herniation at L4-5 without impingement on the spinal canal. There is developmentally adequate spinal canal. There is no compression fracture. There is no lumbar paraspinal mass. Posterior elements are intact. Sacroiliac joints appear intact. T here is no evidence of bony destructive process. The neural foramina are fairly well-maintained. Lumb ar nerve roots appear normal. IMPRESSION: Small posterior disc herniation at L4-5. No spinal stenosis. No fracture. Mild degenerative disc beebe ges.
== END | disposition home or self-care (01) ==
LOC: RADMRIMAIN 10:54
PROVIDERS: ATTEND Psychiatry & Neurology Neurology
DX: M51.26 Other intervertebral disc displacement, lumbar region (principal); M51.36 Other intervertebral disc degeneration, lumbar region; Z88.0 Allergy status to penicillin; Z88.1 Allergy status to other antibiotic agents; Z88.8 Allergy status to other drugs, medicaments and biological substances; Z88.5 Allergy status to narcotic agent
CPT/HCPCS: 72148

== ENCOUNTER → 2019-02-13 | Outpatient (CLI) | payer MEDICARE ==
--- NOTE | 2019-02-13 13:32 | US ---
EXAMINATION TYPE: US kidneys/renal and bladder DATE OF EXAM: 02/13/2019 COMPARISON: US October 26, [address] August 07, 2018 CLINICAL HISTORY: N13.30 Right Hydronephrosis. Extensive history of stones and stone removal. EXAM MEASUREMENTS: Right Kidney: 8.3 x 3.1 x 3.8 cm Left Kidney: 9.0 x 4.7 x 5.2 cm Technically difficult study due to overlying bowel gas. Right Kidney: possible mild hydro, no definite stones seen. There are echogenic areas seen without sh adowing or twinkle artifact, question stones versus surgical change. Left Kidney: Somewhat lobular contour, no hydro or masses seen. Bladder: wnl Bilateral Jets seen: No Exam is suboptimal due to patient's large body habitus and overlying bowel gas. Scattered hyperechoic areas felt to reflect nonobstructing renal calculi. Persistent anechoic prominent calyces but only m ild pelvic prominence on current study. Cortical thinning. Bladder satisfactorily distended. Left kidney is mislabeled right kidney. No hydronephrosis. Left Sided renal calculi not as well seen on ultrasound images. IMPRESSION: Suspect persistent mild right-sided hydronephrosis improved from prior. No left-sided hyd ronephrosis seen currently.
== END | disposition home or self-care (01) ==
LOC: RADUSWWP 12:49
PROVIDERS: ATTEND Urology
DX: N13.30 Unspecified hydronephrosis (principal); Z88.0 Allergy status to penicillin; Z88.2 Allergy status to sulfonamides; Z88.5 Allergy status to narcotic agent
CPT/HCPCS: 76770

== ENCOUNTER 2019-05-24 17:54 | Inpatient (IN) | payer BC, MEDICARE ==
[2019-05-24 19:20] LABS: Appearance,Urine Cloudy (Clear); Bacteria,Urine Occasional /hpf; Bilirubin,Urine Negative (Negative); Blood,Urine Trace (Negative); Color,Urine Light Yellow; Glucose,Urine (UA) Negative (Negative); Ketones,Urine Negative (Negative); Leukocyte Esterase,Urine Large (Negative); Mucus,Urine Rare /hpf; Nitrite,Urine Negative (Negative); Protein,Urine Trace (Negative); RBC,Urine 6 /hpf (0-5); Specific Gravity,Urine 1.018 (1.001-1.035); Squamous Epithelial Cell,Urine 1 /hpf (0-4); Urobilinogen,Urine <2.0 mg/dL (<2.0); WBC,Urine >182 /hpf (0-5)
[2019-05-24] MEDS ORDERED: cefTRIAXone IN SWFI 1,000 MG/10 ML SYRINGE IVP STA (22:23)
[2019-05-24] MEDS ORDERED: VANCOMYCIN IV PER PHARMACY 1 EACH MISC MISCELLANE PRN (22:24)
[2019-05-24] MEDS ORDERED: NALOXONE 0.4 MG/ML 1 ML VIAL IV PRN (22:25)
[2019-05-24] MEDS ORDERED: VANCOMYCIN 1,250 MG in SODIUM CHLORIDE 0.9% 250 ML IVPB STA (22:26)
--- NOTE | 2019-05-24 22:27 | ED ---
Female Urogenital HPI - General Chief complaint: Urogenital Stated complaint: UTI Time Seen by Provider: 05/24/19 18:45 Source: patient Mode of arrival: wheelchair Limitations: no limitations - History of Present Illness Initial comments: The patient is a 60-year-old female past history of diabetes, hypertension and recurrent urinary tract infections presents to the emergency department as she was advised to come here by Dr. Navas. She states that she followed up with her primary care doctor in regards to dysuria and increased frequency of urination. She does have a tendency to get urinary tract infections. She provide a sample on May 20. She is placed on Keflex. She did receive a call from her primary care office today stating that her urine was positive for 2 different bacteria, both of which were resistant to bacteria. The patient also has significant ALLERGIES to antibiotics. Because of the lack of choices to oral medications they did send her into the emergency department for infectious disease consult as well as IV antibiotics. The patient continues to report burning and discomfort while on the Keflex. She denies any fevers or chills. No changes in her bowel or her habits. Denies weakness or confusion. There are no a lleviating, precipitating or modifying factors - Related Data Home Medications Medication Instructions Recorded Confirmed Atorvastatin Calcium [Lipitor] 10 mg PO DAILY 05/15/18 05/25/19 Hydrocodone/Acetaminophen [[place] 1 tab PO BID PRN 05/15/18 05/25/19 5-325] Oxybutynin Chloride 5 mg PO BID 05/15/18 05/25/19 buPROPion XL [Wellbutrin XL] 150 mg PO DAILY 05/15/18 05/25/19 Acetaminophen Tab [Tylenol] 650 mg PO Q6H PRN 08/31/18 05/25/19 Aspirin/Acetaminophen/Caffeine 2 tab PO Q8H PRN 05/25/19 05/25/19 [Excedrin Migraine Caplet] Gabapentin [Neurontin] 100 mg PO BID 05/25/19 05/25/19 Previous Rx's Medication Instructions Recorded Metoprolol Tartrate [Lopressor] 50 mg PO BID #60 tab 09/01/18 Allergies Allergy/AdvReac Type Severity Reaction Status Date / Time meperidine [From Demerol] AdvReac Nausea & Verified 05/25/19 10:04 Vomiting Penicillins AdvReac "FALLS Verified 05/25/19 10:04 ALOT" Sulfa (Sulfonamide AdvReac Nausea & Verified 05/25/19 10:04 Antibiotics) Vomiting Review of Systems ROS Statement: Those systems with pertinent positive or pertinent negative responses have been documented in the HPI. ROS Other: All systems not noted in ROS Statement are negative. Past Medical History Past Medical History: Diabetes Mellitus, Hypertension, Neurologic Disorder Additional Past Medical History / Comment(s): NEUROPATHY, MIGRAINES, fractured right shoulder History of Any Multi-Drug Resistant Organisms: None Reported Past Surgical History: Bariatric Surgery, Bladder Surgery, Hysterectomy Additional Past Surgical History / Comment(s): ORAL SURGERY. COLONOSCOPY. LAP BAND THEN HAD BARIATRIC SURGERY; bladder surgery may have been for a benign cyst but is not sure Past Anesthesia/Blood Transfusion Reactions: No Reported Reaction Past Psychological History: Anxiety, Depression Smoking Status: Never smoker Past Alcohol Use History: None Reported Past Drug Use History: None Reported - Past Family History Mother Family Medical History: Diabetes Mellitus Additional Family Medical History / Comment(s): At [facility] with UTI. Father Family Medical History: CVA/TIA, Diabetes Mellitus Sister(s) Family Medical History: Deep Vein Thrombosis (DVT) General Exam Limitations: no limitations General appearance: alert, in no apparent distress Head exam: Present: atraumatic, normocephalic, normal inspection Eye exam: Present: normal appearance, PERRL, EOMI. Absent: scleral icterus, conjunctival injection, periorbital swelling ENT exam: Present: normal exam, mucous membranes moist Neck exam: Present: normal inspection. Absent: tenderness, meningismus, lymphadenopathy Respiratory exam: Present: normal lung sounds bilaterally. Absent: respiratory distress, wheezes, rales, rhonchi, stridor Cardiovascular Exam: Present: regular rate, normal rhythm, normal heart sounds. Absent: systolic murmur, diastolic murmur, rubs, gallop, clicks GI/Abdominal exam: Present: soft, normal bowel sounds. Absent: distended, tenderness, guarding, rebound, rigid Extremities exam: Present: normal inspection, full ROM, normal capillary refill. Absent: tenderness, pedal edema, joint swelling, calf tenderness Back exam: Present: normal inspection Neurological exam: Present: alert, oriented X3, CN II-XII intact Psychiatric exam: Present: normal affect, normal mood Skin exam: Present: warm, dry, intact, normal color. Absent: rash Course Vital Signs 05/24/19 05/24/19 05/24/19 18:41 22:09 23:00 Temperature 98.7 F 98.1 F Pulse Rate 64 60 Pulse Rate [ 64 Pulse Oximetery ] Respiratory 18 18 16 Rate Blood Pressure 136/58 116/66 Blood Pressure 126/57 [Left Arm] O2 Sat by Pulse 99 100 100 Oximetry Medical Decision Making - Medical Decision Making Upon arrival the patient was placed into nunes 21. I discussed the case with Dr. Navas who was adamant that the patient be admitted to the hospital for IV antibiotics and infectious disease consult. I did obtain a urine on the patient. I also completed laboratory studies. Creatinine is mildly elevated at 1.25 which is the patient's baseline. Urinalysis shows large leukocyte esterase, 6 red blood cells, greater than 182 white blood cells and occasional bacteria. I did obtain the culture results from [facility]. It does appear that the patient is sensitive to Vanco and Rocephin. The patient does have a penicillin ALLERGY however I will attempt to try cephalosporins on the patient. I will consult Dr. Rivas. I discussed the case with Dr. Haji who accepted admission. The urine culture results were sent with the patient to the floor. The patient was taken to the floor in stable condition - Lab Data Result diagrams: 05/28/19 07:30 05/28/19 07:30 Lab Results 05/24/19 05/24/19 05/24/19 Range/Units 18:45 22:10 22:22 WBC 9.9 (3.8-10.6) k/uL RBC 3.74 L (3.80-5.40) m/uL Hgb 11.9 (11.4-16.0) gm/dL Hct 38.0 (34.0-46.0) % MCV 101.5 H (80.0-100.0) fL MCH 31.7 (25.0-35.0) pg MCHC 31.3 (31.0-37.0) g/dL RDW 13.4 (11.5-15.5) % Plt Count 220 (150-450) k/uL Neutrophils % 64 % Lymphocytes % 26 % Monocytes % 4 % Eosinophils % 4 % Basophils % 0 % Neutrophils # 6.4 (1.3-7.7) k/uL Lymphocytes # 2.6 (1.0-4.8) k/uL Monocytes # 0.4 (0-1.0) k/uL Eosinophils # 0.4 (0-0.7) k/uL Basophils # 0.0 (0-0.2) k/uL Hypochromasia Slight Macrocytosis Slight Sodium 139 (137-145) mmol/L Potassium 5.9 H (3.5-5.1) mmol/L Chloride 112 H (98-107) mmol/L Carbon Dioxide 15 L (22-30) mmol/L Anion Gap 12 mmol/L BUN 33 H (7-17) mg/dL Creatinine 1.25 H (0.52-1.04) mg/dL Est GFR (CKD-EPI)AfAm 51 (>60 ml/min/1.73 sqM) Est GFR (CKD-EPI)NonAf 44 (>60 ml/min/1.73 sqM) Glucose 100 H (74-99) mg/dL Plasma Lactic Acid Christ (0.7-2.0) mmol/L Calcium 8.9 (8.4-10.2) mg/dL Total Bilirubin 0.5 (0.2-1.3) mg/dL AST 38 H (14-36) U/L ALT 18 (4-34) U/L Alkaline Phosphatase 89 (38-126) U/L Total Protein 7.6 (6.3-8.2) g/dL Albumin 4.5 (3.5-5.0) g/dL Urine Color Light Yellow Urine Appearance Cloudy H (Clear) Urine pH 6.0 (5.0-8.0) Ur Specific [place] 1.018 (1.001-1.035) Urine Protein Trace H (Negative) Urine Glucose (UA) Negative (Negative) Urine Ketones Negative (Negative) Urine Blood Trace H (Negative) Urine Nitrite Negative (Negative) Urine Bilirubin Negative (Negative) Urine Urobilinogen <2.0 (<2.0) mg/dL Ur Leukocyte Esterase Large H (Negative) Urine RBC 6 H (0-5) /hpf Urine WBC >182 H (0-5) /hpf Ur Squamous Epith Cells 1 (0-4) /hpf Urine Bacteria Occasional H (None) /hpf Urine Mucus Rare H (None) /hpf 05/24/19 05/25/19 05/25/19 Range/Units 22:22 09:21 09:21 WBC 5.7 (3.8-10.6) k/uL RBC 3.20 L (3.80-5.40) m/uL Hgb 10.2 L (11.4-16.0) gm/dL Hct 33.1 L (34.0-46.0) % MCV 103.2 H (80.0-100.0) fL MCH 31.8 (25.0-35.0) pg MCHC 30.8 L (31.0-37.0) g/dL RDW 13.5 (11.5-15.5) % Plt Count 172 (150-450) k/uL Neutrophils % 59 % Lymphocytes % 28 % Monocytes % 5 % Eosinophils % 5 % Basophils % 1 % Neutrophils # 3.3 (1.3-7.7) k/uL Lymphocytes # 1.6 (1.0-4.8) k/uL Monocytes # 0.3 (0-1.0) k/uL Eosinophils # 0.3 (0-0.7) k/uL Basophils # 0.0 (0-0.2) k/uL Hypochromasia Moderate Macrocytosis Slight Sodium 139 (137-145) mmol/L Potassium 4.9 (3.5-5.1) mmol/L Chloride 115 H (98-107) mmol/L Carbon Dioxide 16 L (22-30) mmol/L Anion Gap 8 mmol/L BUN 30 H (7-17) mg/dL Creatinine 1.20 H (0.52-1.04) mg/dL Est GFR (CKD-EPI)AfAm 54 (>60 ml/min/1.73 sqM) Est GFR (CKD-EPI)NonAf 47 (>60 ml/min/1.73 sqM) Glucose 101 H (74-99) mg/dL Plasma Lactic Acid Christ 1.4 (0.7-2.0) mmol/L Calcium 8.1 L (8.4-10.2) mg/dL Total Bilirubin <0.1 L (0.2-1.3) mg/dL AST 21 (14-36) U/L ALT 13 (4-34) U/L Alkaline Phosphatase 68 (38-126) U/L Total Protein 5.3 L (6.3-8.2) g/dL Albumin 3.0 L (3.5-5.0) g/dL Urine Color Urine Appearance (Clear) Urine pH (5.0-8.0) Ur Specific [place] (1.001-1.035) Urine Protein (Negative) Urine Glucose (UA) (Negative) Urine Ketones (Negative) Urine Blood (Negative) Urine Nitrite (Negative) Urine Bilirubin (Negative) Urine Urobilinogen (<2.0) mg/dL Ur Leukocyte Esterase (Negative) Urine RBC (0-5) /hpf Urine WBC (0-5) /hpf Ur Squamous Epith Cells (0-4) /hpf Urine Bacteria (None) /hpf Urine Mucus (None) /hpf 05/26/19 Range/Units 07:13 WBC (3.8-10.6) k/uL RBC (3.80-5.40) m/uL Hgb (11.4-16.0) gm/dL Hct (34.0-46.0) % MCV (80.0-100.0) fL MCH (25.0-35.0) pg MCHC (31.0-37.0) g/dL RDW (11.5-15.5) % Plt Count (150-450) k/uL Neutrophils % % Lymphocytes % % Monocytes % % Eosinophils % % Basophils % % Neutrophils # (1.3-7.7) k/uL Lymphocytes # (1.0-4.8) k/uL Monocytes # (0-1.0) k/uL Eosinophils # (0-0.7) k/uL Basophils # (0-0.2) k/uL Hypochromasia Macrocytosis Sodium 139 (137-145) mmol/L Potassium 4.9 (3.5-5.1) mmol/L Chloride 116 H (98-107) mmol/L Carbon Dioxide 16 L (22-30) mmol/L Anion Gap 7 mmol/L BUN 24 H (7-17) mg/dL Creatinine 1.02 (0.52-1.04) mg/dL Est GFR (CKD-EPI)AfAm 66 (>60 ml/min/1.73 sqM) Est GFR (CKD-EPI)NonAf 57 (>60 ml/min/1.73 sqM) Glucose 103 H (74-99) mg/dL Plasma Lactic Acid Christ (0.7-2.0) mmol/L Calcium 8.5 (8.4-10.2) mg/dL Total Bilirubin (0.2-1.3) mg/dL AST (14-36) U/L ALT (4-34) U/L Alkaline Phosphatase (38-126) U/L Total Protein (6.3-8.2) g/dL Albumin (3.5-5.0) g/dL Urine Color Urine Appearance (Clear) Urine pH (5.0-8.0) Ur Specific [place] (1.001-1.035) Urine Protein (Negative) Urine Glucose (UA) (Negative) Urine Ketones (Negative) Urine Blood (Negative) Urine Nitrite (Negative) Urine Bilirubin (Negative) Urine Urobilinogen (<2.0) mg/dL Ur Leukocyte Esterase (Negative) Urine RBC (0-5) /hpf Urine WBC (0-5) /hpf Ur Squamous Epith Cells (0-4) /hpf Urine Bacteria (None) /hpf Urine Mucus (None) /hpf Disposition Clinical Impression: Multiple drug resistant organism (MDRO) culture positive, Urinary tract infection Disposition: ADMITTED IP TO THIS [facility] Condition: Stable Is patient prescribed a controlled substance at d/c from ED?: No Decision to Admit Reason: Admit from EC Decision Date: 05/24/19 Decision Time: 22:25
[2019-05-24 22:41] LABS: Basophils % (A) 0 %; Eosinophils # (A) 0.4 k/uL (0-0.7); Eosinophils % (A) 4 %; HGB 11.9 gm/dL (11.4-16.0); Hypochromasia Slight; Lymphocytes # (A) 2.6 k/uL (1.0-4.8); Lymphocytes % (A) 26 %; MCH 31.7 pg (25.0-35.0); MCHC 31.3 g/dL (31.0-37.0); MCV 101.5 fL (80.0-100.0); Macrocytosis Slight; Mean Platelet Volume 8.4; Monocytes # (A) 0.4 k/uL (0-1.0); Monocytes % (A) 4 %; Neutrophils # (A) 6.4 k/uL (1.3-7.7); Neutrophils % (A) 64 %; Platelet Count 220 k/uL (150-450); RBC 3.74 m/uL (3.80-5.40); RDW 13.4 % (11.5-15.5); WBC 9.9 k/uL (3.8-10.6)
[2019-05-24 22:41] LABS: Albumin 4.5 g/dL (3.5-5.0); Calcium 8.9 mg/dL (8.4-10.2); Total Bilirubin 0.5 mg/dL (0.2-1.3); Total Protein 7.6 g/dL (6.3-8.2)
[2019-05-24 22:42] LABS: Potassium 5.9 mmol/L (3.5-5.1)
[2019-05-25] MEDS: METOPROLOL TARTRATE 50 MG TAB PO SCH ×3 (00:28→20:38)
[2019-05-25] MEDS: HYDROcodone/APAP 5-325MG 1 EACH TAB PO PRN ×2 (00:29→11:21)
[2019-05-25] MEDS: SODIUM CHLORIDE 0.9% 1,000 ML IV SCH ×3 (00:29→17:56)
[2019-05-25] MEDS: GABAPENTIN 100 MG CAP PO SCH ×2 (00:29→20:38)
[2019-05-25] MEDS: OXYBUTYNIN CHLORIDE 5 MG TAB PO SCH ×3 (00:29→20:38)
[2019-05-25] MEDS: buPROPion XL 150 MG TAB.ER.24H PO SCH ×2 (00:32→07:47)
[2019-05-25 10:09] LABS: Basophils % (A) 1 %; Eosinophils # (A) 0.3 k/uL (0-0.7); Eosinophils % (A) 5 %; HCT 33.1 % (34.0-46.0); HGB 10.2 gm/dL (11.4-16.0); Hypochromasia Moderate; Lymphocytes # (A) 1.6 k/uL (1.0-4.8); Lymphocytes % (A) 28 %; MCH 31.8 pg (25.0-35.0); MCHC 30.8 g/dL (31.0-37.0); MCV 103.2 fL (80.0-100.0); Macrocytosis Slight; Mean Platelet Volume 8.3; Monocytes # (A) 0.3 k/uL (0-1.0); Monocytes % (A) 5 %; Neutrophils # (A) 3.3 k/uL (1.3-7.7); Neutrophils % (A) 59 %; Platelet Count 172 k/uL (150-450); RDW 13.5 % (11.5-15.5); WBC 5.7 k/uL (3.8-10.6)
[2019-05-25 10:21] LABS: ALT 13 U/L (4-34); AST 21 U/L (14-36); African American GFR (CKD) 54 (>60 ml/min/1.73 sqM); Alkaline Phosphatase 68 U/L (38-126); Anion Gap 8 mmol/L; Blood Urea Nitrogen 30 mg/dL (7-17); Calcium 8.1 mg/dL (8.4-10.2); Carbon Dioxide 16 mmol/L (22-30); Chloride 115 mmol/L (98-107); Glucose 101 mg/dL (74-99); Non-African American GFR(CKD) 47 (>60 ml/min/1.73 sqM); Potassium 4.9 mmol/L (3.5-5.1); Sodium 139 mmol/L (137-145); Total Bilirubin <0.1 mg/dL (0.2-1.3); Total Protein 5.3 g/dL (6.3-8.2)
--- NOTE | 2019-05-25 17:19 | P.HPIM ---
History of Present Illness H&P Date: 05/25/19 Chief Complaint: Urine burning History of presenting complaint: This is a very pleasant [address] Navas. Chronic stable medical conditions include diabetes, hypertension, depression and anxiety, bilateral kidney stones, COPD stage III. Patient presented to her family doctor with clinical picture of low back pain and cloudy urine burning in the urine and fever. UA was sent off. Came back showing 2 different bacteria with multiple resistance. Do not have the results at hand. Admitted to the hospital for same. Spoke to infectious disease Dr. Jo today. Also the nurse awaiting the results to be faxed over. Review of systems: GEN.: Tired EYES: None HEENT: None NECK: None RESPIRATORY: None CARDIOVASCULAR: None GASTROINTESTINAL: None GENITOURINARY: As above MUSCULOSKELETAL: Joint pains LYMPHATICS: None HEMATOLOGICAL: None PSYCHIATRY: None NEUROLOGICAL: None Past medical history to include: Diabetes, hypertension, peripheral neuropathy, depression and anxiety, CK 80 stage III Social history: . Lives at [facility]. No smoking or alcohol. Physical examination: VITAL SIGNS: 98.7, 64, 18, blood pressure 136/58, 99% on room air] GENERAL: BMI 29.3, sitting on bed, not in distress. EYES: Pupils equal. Conjunctiva normal. HEENT: External appearance of nose and ears normal, oral cavity grossly normal. NECK: JVD not raised; masses not palpable. HEART: First and second heart sounds are normal; no edema. LUNGS: Respiratory rate normal; clear to auscultation. ABDOMEN: Soft, nontender, liver spleen not palpable, no masses palpable. PSYCH: Alert and oriented x3; mood and affect normal. MUSCULAR skeletal: Evidence of OA NEUROLOGICAL: Cranial nerves grossly intact; no facial asymmetry, power and sensation grossly intact. LYMPHATICS: No lymph nodes palpable in the axilla and neck INVESTIGATIONS, reviewed in the clinical context: White count 9.9 hemoglobin 11.9 potassium 5. 9 repeat 4.9 bun 33 creatinine 1.25 bicarbonate 15 UA positive for leukoesterase WBC Urine culture results pending from Dr. Navas's office Assessment: -Acute UTI with 2 different WITH MULTIPLE RESISTANCE WILL REQUIRE IV ANTIBIOTICS -DIABETES MELLITUS TYPE 2 -ESSENTIAL HYPERTENSION -CHRONIC KIDNEY DISEASE STAGE III FROM DIABETIC NEPHROSCLEROSIS AND HYPERTENSIVE NEPHROSCLEROSIS -METABOLIC ACIDOSIS FROM RENAL FAILURE HYPERKALEMIA SECONDARY TO FAILURE Plan: Discussed with Dr. Jo from ID. Muscular the results from Dr. Navas's office antibiotics will be determined. Patient's potassium has come down. At oral sodium bicarbonate. Other home medications to continue. Lovenox for DVT prophylaxis. Care was discussed with the patient. Past Medical History Past Medical History: Diabetes Mellitus, Hypertension, Neurologic Disorder Additional Past Medical History / Comment(s): NEUROPATHY, MIGRAINES, fractured right shoulder History of Any Multi-Drug Resistant Organisms: None Reported Past Surgical History: Bariatric Surgery, Bladder Surgery, Hysterectomy Additional Past Surgical History / Comment(s): ORAL SURGERY. COLONOSCOPY. LAP BAND THEN HAD BARIATRIC SURGERY; bladder surgery may have been for a benign cyst but is not sure Past Anesthesia/Blood Transfusion Reactions: No Reported Reaction Past Psychological History: Anxiety, Depression Smoking Status: Never smoker Past Alcohol Use History: None Reported Past Drug Use History: None Reported - Past Family History Mother Family Medical History: Diabetes Mellitus Additional Family Medical History / Comment(s): At [facility] with UTI. Father Family Medical History: CVA/TIA, Diabetes Mellitus Sister(s) Family Medical History: Deep Vein Thrombosis (DVT) Medications and Allergies Home Medications Medication Instructions Recorded Confirmed Type Atorvastatin Calcium [Lipitor] 10 mg PO DAILY 05/15/18 05/25/19 History Hydrocodone/Acetaminophen [[place] 1 tab PO BID PRN 05/15/18 05/25/19 History 5-325] Oxybutynin Chloride 5 mg PO BID 05/15/18 05/25/19 History buPROPion XL [Wellbutrin XL] 150 mg PO DAILY 05/15/18 05/25/19 History Acetaminophen Tab [Tylenol] 650 mg PO Q6H PRN 08/31/18 05/25/19 History Metoprolol Tartrate [Lopressor] 50 mg PO BID #60 tab 09/01/18 05/25/19 Rx Aspirin/Acetaminophen/Caffeine 2 tab PO Q8H PRN 05/25/19 05/25/19 History [Excedrin Migraine Caplet] Cephalexin [Keflex] 500 mg PO BID 05/25/19 05/25/19 History Gabapentin [Neurontin] 100 mg PO BID 05/25/19 05/25/19 History Allergies Allergy/AdvReac Type Severity Reaction Status Date / Time meperidine [From Demerol] AdvReac Nausea & Verified 05/25/19 10:04 Vomiting Penicillins AdvReac "FALLS Verified 05/25/19 10:04 ALOT" Sulfa (Sulfonamide AdvReac Nausea & Verified 05/25/19 10:04 Antibiotics) Vomiting Physical Exam Vitals: Vital Signs Temp Pulse Pulse Resp BP BP Pulse Ox 05/25/19 07:00 97.4 F L 66 17 96/59 95 05/25/19 03:43 16 05/25/19 00:48 16 05/24/19 23:00 98.1 F 64 16 126/57 100 05/24/19 22:09 60 18 116/66 100 05/24/19 18:41 98.7 F 64 18 136/58 99 Intake and Output 05/24/19 05/25/19 05/25/19 22:59 06:59 14:59 Intake Total 700 Output Total 200 Balance 500 Intake: Intake, IV Titration 700 Amount Sodium Chloride 0.9% 1, 700 000 ml @ 100 mls/hr IV . Q10H [facility] Rx#:[id number] Output: Urine 200 Other: Voiding Method Bedside Commode Weight 72.575 kg Results CBC & Chem 7: 05/25/19 09:21 05/25/19 09:21 Labs: Abnormal Lab Results - Last 24 Hours (Table) 05/24/19 05/24/19 05/24/19 Range/Units 18:45 22:10 22:22 RBC 3.74 L (3.80-5.40) m/uL Hgb (11.4-16.0) gm/dL Hct (34.0-46.0) % MCV 101.5 H (80.0-100.0) fL MCHC (31.0-37.0) g/dL Potassium 5.9 H (3.5-5.1) mmol/L Chloride 112 H (98-107) mmol/L Carbon Dioxide 15 L (22-30) mmol/L BUN 33 H (7-17) mg/dL Creatinine 1.25 H (0.52-1.04) mg/dL Glucose 100 H (74-99) mg/dL Calcium (8.4-10.2) mg/dL Total Bilirubin (0.2-1.3) mg/dL AST 38 H (14-36) U/L Total Protein (6.3-8.2) g/dL Albumin (3.5-5.0) g/dL Urine Appearance Cloudy H (Clear) Urine Protein Trace H (Negative) Urine Blood Trace H (Negative) Ur Leukocyte Esterase Large H (Negative) Urine RBC 6 H (0-5) /hpf Urine WBC >182 H (0-5) /hpf Urine Bacteria Occasional H (None) /hpf Urine Mucus Rare H (None) /hpf 05/25/19 05/25/19 Range/Units 09:21 09:21 RBC 3.20 L (3.80-5.40) m/uL Hgb 10.2 L (11.4-16.0) gm/dL Hct 33.1 L (34.0-46.0) % MCV 103.2 H (80.0-100.0) fL MCHC 30.8 L (31.0-37.0) g/dL Potassium (3.5-5.1) mmol/L Chloride 115 H (98-107) mmol/L Carbon Dioxide 16 L (22-30) mmol/L BUN 30 H (7-17) mg/dL Creatinine 1.20 H (0.52-1.04) mg/dL Glucose 101 H (74-99) mg/dL Calcium 8.1 L (8.4-10.2) mg/dL Total Bilirubin <0.1 L (0.2-1.3) mg/dL AST (14-36) U/L Total Protein 5.3 L (6.3-8.2) g/dL Albumin 3.0 L (3.5-5.0) g/dL Urine Appearance (Clear) Urine Protein (Negative) Urine Blood (Negative) Ur Leukocyte Esterase (Negative) Urine RBC (0-5) /hpf Urine WBC (0-5) /hpf Urine Bacteria (None) /hpf Urine Mucus (None) /hpf Microbiology - Last 24 Hours (Table) 05/24/19 18:45 Urine Culture - Preliminary Urine,Voided
[2019-05-25] MEDS: ENOXAPARIN 40 MG/0.4 ML SYRINGE SQ SCH (17:56)
[2019-05-25] MEDS: SODIUM BICARBONATE TAB 650 MG TAB PO SCH ×2 (17:56→22:33)
[2019-05-25] MEDS: ACETAMINOPHEN TAB 325 MG TAB PO PRN (20:37)
[2019-05-25] MEDS: ATORVASTATIN 10 MG TAB PO SCH (20:38)
[2019-05-25] MEDS: VANCOMYCIN 1,250 MG in SODIUM CHLORIDE 0.9% 250 ML IVPB SCH (22:34)
[2019-05-26] MEDS: HYDROcodone/APAP 5-325MG 1 EACH TAB PO PRN ×3 (01:02→17:57)
[2019-05-26] MEDS: METOPROLOL TARTRATE 50 MG TAB PO SCH ×2 (07:04→20:32)
[2019-05-26] MEDS: OXYBUTYNIN CHLORIDE 5 MG TAB PO SCH ×2 (07:04→20:31)
[2019-05-26] MEDS: SODIUM BICARBONATE TAB 650 MG TAB PO SCH ×3 (07:04→20:31)
[2019-05-26] MEDS: buPROPion XL 150 MG TAB.ER.24H PO SCH (07:04)
[2019-05-26] MEDS: SODIUM CHLORIDE 0.9% 1,000 ML IV SCH ×3 (07:05→22:37)
[2019-05-26] MEDS: ENOXAPARIN 40 MG/0.4 ML SYRINGE SQ SCH (07:05)
[2019-05-26 08:02] LABS: Calcium 8.5 mg/dL (8.4-10.2); Potassium 4.9 mmol/L (3.5-5.1)
--- NOTE | 2019-05-26 10:24 | CONS ---
CONSULTATION DATE OF SERVICE: 05/25/2019 REASON FOR CONSULTATION: Urinary tract infection, failing outpatient antibiotic therapy. HISTORY OF PRESENT ILLNESS: The patient is a 68-year-old female who recently was diagnosed with a urinary tract infection when she presented to her family care physician with symptoms of dark cloudy urine; symptoms had been going on for a few days. The patient also had burning and suprapubic discomfort, but no flank pain. No nausea, no vomiting. The patient was being treated with oral Keflex. However, the patient's symptoms slightly improved but were not completely resolved. Subsequently the patient's urine cultures were finalized with Citrobacter and Enterococcus faecalis. With no oral option available, the patient was advised to go to the hospital. The patient was evaluated by the ER physician. She was started on vancomycin and subsequently admitted to the hospital. Infectious Disease was consulted for further recommendations regarding antibiotic. Since admission to the hospital, the patient has been afebrile. She did have a normal white count; however, she has borderline kidney function and a positive UA with large leukocyte esterase, more than 182 WBCs. Infectious Disease was consulted for further recommendations regarding antibiotic therapy. REVIEW OF SYSTEMS: Positive points have been mentioned in HPI; other systems are negative. PAST MEDICAL HISTORY: Diabetes mellitus, hypertension, neuropathy, migraines and history of recurrent UTI. PAST SURGICAL HISTORY: Bariatric surgery, bladder surgery, hysterectomy and colonoscopy. SOCIAL HISTORY: No history of smoking, drinking or drug use. FAMILY HISTORY: Mother with history of diabetes. Father with history of CVA and diabetes mellitus. ALLERGIES: PENICILLIN, SULFA. CURRENT MEDICATIONS: The patient is currently on Tylenol, [place], Lipitor, Wellbutrin XL, Lovenox, Neurontin, Lopressor, Narcan, Ditropan and vancomycin. PHYSICAL EXAMINATION: Blood pressure 108/69 with a pulse of 67, temperature 98.6. She is 97% on room air. General description is an elderly female lying in bed in no distress. No tachypnea or accessory muscle of respiration use. HEENT examination shows slight pallor. No scleral icterus. Oral mucosa membrane is dry. No pharyngeal erythema or thrush. NECK: Trachea is central. No thyromegaly. LUNGS: Unlabored breathing. Clear to auscultation. HEART: S1, S2. Regular rate and rhythm. ABDOMEN: Soft. No tenderness. No guarding or rigidity. EXTREMITIES: No edema of the feet. SKIN EXAMINATION: No rash or mass palpable. Neurologically the patient is awake, alert, oriented x3. Mood and affect normal. LABS: Hemoglobin 10.2, white count of 5.7, BUN of 30, creatinine 1.20. Electrolytes have been normal. UA has been positive. Cultures done in the outpatient setting were positive for Citrobacter and Enterococcus faecalis. DIAGNOSTIC IMPRESSION AND PLAN: Patient with a recent diagnosis of a urinary tract infection in this patient whose cultures are positive for 2 different pathogens. Both of them did have some sensitivities. However, the patient does have DRUG ALLERGIES and borderline kidney function that will contraindicate the use of for treatment of the patient's urinary tract infection. PLAN: 1. We will keep the patient on vancomycin, Pharmacy to dose, while waiting for the repeat cultures to finalize. 2. Will add Rocephin 2 grams daily to cover for the Citrobacter. 3. Discharge antibiotic will depend upon the repeat urine culture and clinical response. Thank you for this consultation. Will follow this patient along with you. Plan of care was discussed with the admitting physician. MMCARMENL / IJN: [id number] /
[2019-05-26] MEDS: ACETAMINOPHEN TAB 325 MG TAB PO PRN (12:19)
--- NOTE | 2019-05-26 17:27 | PN ---
PROGRESS NOTE DATE OF SERVICE: 05/26/2019. REASON FOR FOLLOWUP: Urinary tract infection. INTERVAL HISTORY: The patient is currently afebrile. The patient is breathing comfortably. The patient denies having any chest pain or shortness of breath or cough. No nausea or vomiting. No abdominal pain or diarrhea. PHYSICAL EXAMINATION: On examination, her blood pressure is 137/80 with a pulse of 61, temperature 97.9. She is 99% on room air. General description is an elderly female lying in bed in no distress. RESPIRATORY SYSTEM: Unlabored breathing. Clear to auscultation anteriorly. HEART: S1, S2. Regular rate and rhythm. ABDOMEN: Soft. No tenderness. LABS: Creatinine has improved to 1.02. Urine showing Enterococcus. DIAGNOSTIC IMPRESSION AND PLAN: Patient with Enterococcus urinary tract infection in the outpatient setting that has failed to respond to the oral antibiotic therapy in this patient who unfortunately does have an ALLERGY TO PENICILLIN. She is currently covered with vancomycin; to continue while waiting for the culture to finalize. Will repeat UA in one week. Monitor clinical course closely. MMODL / IJN: [id number] /
[2019-05-26] MEDS: GABAPENTIN 100 MG CAP PO SCH (20:31)
[2019-05-26] MEDS: VANCOMYCIN 1,250 MG in SODIUM CHLORIDE 0.9% 250 ML IVPB SCH (22:36)
[2019-05-27] MEDS: HYDROcodone/APAP 5-325MG 1 EACH TAB PO PRN ×4 (01:29→22:09)
[2019-05-27] MEDS: ACETAMINOPHEN TAB 325 MG TAB PO PRN ×2 (04:41→14:21)
[2019-05-27] MEDS: SODIUM BICARBONATE TAB 650 MG TAB PO SCH ×3 (07:38→21:12)
[2019-05-27] MEDS: METOPROLOL TARTRATE 50 MG TAB PO SCH ×2 (07:38→21:11)
[2019-05-27] MEDS: buPROPion XL 150 MG TAB.ER.24H PO SCH (07:39)
[2019-05-27] MEDS: ENOXAPARIN 40 MG/0.4 ML SYRINGE SQ SCH (07:39)
[2019-05-27] MEDS: OXYBUTYNIN CHLORIDE 5 MG TAB PO SCH ×2 (07:39→21:11)
[2019-05-27] MEDS ORDERED: KETOROLAC 30 MG/ML 1 ML VIAL IVP ONE (10:00)
[2019-05-27] MEDS: SODIUM CHLORIDE 0.9% 1,000 ML IV SCH ×2 (10:11→21:11)
[2019-05-27] MEDS: GABAPENTIN 100 MG CAP PO SCH (21:11)
[2019-05-27] MEDS: VANCOMYCIN 1,250 MG in SODIUM CHLORIDE 0.9% 250 ML IVPB SCH (22:12)
--- NOTE | 2019-05-27 23:44 | P.PN ---
Subjective Progress Note Date: 05/26/19 Principal diagnosis: Acute urinary tract infection This is a very pleasant [address] Navas. Chronic stable medical conditions include diabetes, hypertension, depression and anxiety, bilateral kidney stones, COPD stage III. Patient presented to her family doctor with clinical picture of low back pain and cloudy urine burning in the urine and fever. UA was sent off. Came back showing 2 different bacteria with multiple resistance. Do not have the results at hand. Admitted to the hospital for same. Spoke to infectious disease Dr. Jo today. Also the nurse awaiting the results to be faxed over. 05/26/2019 Patient denied any complaints of abdominal pain. No nausea vomiting. No chest pain no shortness of breath. No fever. Urine culture is not finalized yet. Currently being continued on vancomycin. ID is on board. Current medications reviewed. Objective - Vital Signs Vital signs: Vital Signs Temp 97.6 F 05/26/19 07:00 Pulse 60 05/26/19 07:00 Resp 16 05/26/19 07:00 BP 124/58 05/26/19 07:00 Pulse Ox 98 05/26/19 07:00 Intake & Output 05/25/19 05/26/19 05/26/19 18:59 06:59 18:59 Intake Total 300 Balance 300 Intake: Intake, IV Titration 300 Amount Vancomycin 1,250 mg In 250 Sodium Chloride 0.9% 250 ml @ 125 mls/hr IVPB Q24H ALBERTO Rx#:[id number] cefTRIAXone 2 gm In 50 Sodium Chloride 0.9% 50 ml @ 100 mls/hr IVPB HS ALBERTO Rx#:[id number] Other: Voiding Method Bedside Commode # Voids 1 2 - Exam PHYSICAL EXAMINATION: Patient is lying in the bed comfortably, no acute distress, awake alert and oriented.. HEENT: Normocephalic. Neck is supple. Pupils reactive. Nostrils clear. Oral cavity is moist. Ears reveal no drainage. Neck reveals no JVD, carotid bruits, or thyromegaly. CHEST EXAMINATION: Trachea is central. Symmetrical expansion. Lung grier clear to auscultation and percussion. CARDIAC: Normal S1, S2 with no gallops. No murmurs ABDOMEN: Soft. Bowel sounds normal. No organomegaly. No abdominal bruits. Extremities: reveal no edema. No clubbing or cyanosis Neurologically awake, alert, oriented x3 with well-coordinated movements. No focal deficits noted Skin: No rash or skin lesions. Psychiatric: Coperative. Nonsuicidal Musculoskeletal: No joint swelling or deformity. Normal range of motion. - Labs CBC & Chem 7: 05/25/19 09:21 05/26/19 07:13 Labs: Abnormal Lab Results - Last 24 Hours (Table) 05/26/19 Range/Units 07:13 Chloride 116 H (98-107) mmol/L Carbon Dioxide 16 L (22-30) mmol/L BUN 24 H (7-17) mg/dL Glucose 103 H (74-99) mg/dL Microbiology - Last 24 Hours (Table) 05/24/19 23:00 Blood Culture - Preliminary Blood No Growth after 24 hours 05/24/19 18:45 Urine Culture - Preliminary Urine,Voided Group D Enterococcus Assessment and Plan Assessment: -Acute UTI with 2 different WITH MULTIPLE RESISTANCE WILL REQUIRE IV ANTIBIOTICS -DIABETES MELLITUS TYPE 2 -ESSENTIAL HYPERTENSION -Acute on CHRONIC KIDNEY DISEASE STAGE III FROM DIABETIC NEPHROSCLEROSIS AND HYPERTENSIVE NEPHROSCLEROSIS -METABOLIC ACIDOSIS FROM RENAL FAILURE -HYPERKALEMIA SECONDARY TO RENAL FAILURE. Improved Plan: Patient is being continued on antibiotics the form of IV vancomycin. Urine culture showed group D enterococcus species. Final culture report is pending. ID is following. Lovenox for DVT prophylaxis. Care was discussed with the patient. Time with Patient: Greater than 30
--- NOTE | 2019-05-27 23:45 | P.PN ---
Subjective Progress Note Date: 05/27/19 Principal diagnosis: Acute urinary tract infection This is a very pleasant [address] Navas. Chronic stable medical conditions include diabetes, hypertension, depression and anxiety, bilateral kidney stones, COPD stage III. Patient presented to her family doctor with clinical picture of low back pain and cloudy urine burning in the urine and fever. UA was sent off. Came back showing 2 different bacteria with multiple resistance. Do not have the results at hand. Admitted to the hospital for same. Spoke to infectious disease Dr. Jo today. Also the nurse awaiting the results to be faxed over. 05/26/2019 Patient denied any complaints of abdominal pain. No nausea vomiting. No chest pain no shortness of breath. No fever. Urine culture is not finalized yet. Currently being continued on vancomycin. ID is on board. 05/27/2019 Patient is currently lying in the bed comfortably. No complaints of abdominal pain. No fever no chills. Urine culture showed enterococcus species sensitive to vancomycin. Resistant to most of the oral antibiotics. ID is following. No other acute overnight issues. Current medications reviewed. Objective - Vital Signs Vital signs: Vital Signs Temp 98.1 F 05/27/19 18:50 Pulse 75 05/27/19 18:50 Resp 16 05/27/19 18:50 BP 121/74 05/27/19 18:50 Pulse Ox 96 05/27/19 15:00 Intake & Output 05/27/19 05/27/19 05/28/19 06:59 18:59 06:59 Intake Total 940 Output Total 400 Balance 540 Intake: Intake, IV Titration 350 Amount Sodium Chloride 0.9% 1, 300 000 ml @ 100 mls/hr IV . Q10H AL[facility]ERTO Rx#:[id number] cefTRIAXone 2 gm In 50 Sodium Chloride 0.9% 50 ml @ 100 mls/hr IVPB HS ALBERTO Rx#:[id number] Oral 590 Output: Urine 400 Other: Voiding Method Bedside Commode Bedside Commode Toilet Bedside Commode # Voids 3 3 2 - Exam PHYSICAL EXAMINATION: Patient is lying in the bed comfortably, no acute distress, awake alert and oriented.. HEENT: Normocephalic. Neck is supple. Pupils reactive. Nostrils clear. Oral cavity is moist. Ears reveal no drainage. Neck reveals no JVD, carotid bruits, or thyromegaly. CHEST EXAMINATION: Trachea is central. Symmetrical expansion. Lung grier clear to auscultation and percussion. CARDIAC: Normal S1, S2 with no gallops. No murmurs ABDOMEN: Soft. Bowel sounds normal. No organomegaly. No abdominal bruits. Extremities: reveal no edema. No clubbing or cyanosis Neurologically awake, alert, oriented x3 with well-coordinated movements. No focal deficits noted Skin: No rash or skin lesions. Psychiatric: Coperative. Nonsuicidal Musculoskeletal: No joint swelling or deformity. Normal range of motion. - Labs CBC & Chem 7: 05/25/19 09:21 05/26/19 07:13 Labs: Microbiology - Last 24 Hours (Table) 05/24/19 18:45 Urine Culture - Final Urine,Voided Enterococcus faecium 05/24/19 23:00 Blood Culture - Preliminary Blood No Growth after 48 hours Assessment and Plan Assessment: -Acute UTI with 2 different WITH MULTIPLE RESISTANCE WILL REQUIRE IV ANTIBIOTICS -DIABETES MELLITUS TYPE 2 -ESSENTIAL HYPERTENSION -Acute on CHRONIC KIDNEY DISEASE STAGE III FROM DIABETIC NEPHROSCLEROSIS AND HYPERTENSIVE NEPHROSCLEROSIS -METABOLIC ACIDOSIS FROM RENAL FAILURE -HYPERKALEMIA SECONDARY TO RENAL FAILURE. Improved Plan: Patient is being continued on antibiotics the form of IV vancomycin. Urine culture showed group D enterococcus species. ID is following. Lovenox for DVT prophylaxis. Care was discussed with the patient. Time with Patient: Greater than 30
[2019-05-27 23:52] LABS: Appearance,Urine Clear (Clear); Bilirubin,Urine Negative (Negative); Blood,Urine Negative (Negative); Color,Urine Light Yellow; Glucose,Urine (UA) Negative (Negative); Ketones,Urine Negative (Negative); Leukocyte Esterase,Urine Large (Negative); Nitrite,Urine Negative (Negative); Protein,Urine Trace (Negative); RBC,Urine 3 /hpf (0-5); Squamous Epithelial Cell,Urine 1 /hpf (0-4); Urobilinogen,Urine <2.0 mg/dL (<2.0); WBC,Urine 63 /hpf (0-5)
[2019-05-28] MEDS: ACETAMINOPHEN TAB 325 MG TAB PO PRN ×3 (01:01→19:53)
[2019-05-28] MEDS: SODIUM CHLORIDE 0.9% 1,000 ML IV SCH ×2 (07:32→07:33)
[2019-05-28] MEDS: OXYBUTYNIN CHLORIDE 5 MG TAB PO SCH ×2 (07:41→19:53)
[2019-05-28] MEDS: METOPROLOL TARTRATE 50 MG TAB PO SCH ×2 (07:42→19:52)
[2019-05-28] MEDS: SODIUM BICARBONATE TAB 650 MG TAB PO SCH ×3 (07:42→22:20)
[2019-05-28] MEDS: HYDROcodone/APAP 5-325MG 1 EACH TAB PO PRN ×2 (07:42→17:21)
[2019-05-28] MEDS: ENOXAPARIN 40 MG/0.4 ML SYRINGE SQ SCH (07:42)
[2019-05-28] MEDS: buPROPion XL 150 MG TAB.ER.24H PO SCH (07:42)
[2019-05-28 08:20] LABS: Basophils % (A) 1 %; Eosinophils # (A) 0.2 k/uL (0-0.7); Eosinophils % (A) 5 %; HCT 32.3 % (34.0-46.0); HGB 9.9 gm/dL (11.4-16.0); Hypochromasia Moderate; Lymphocytes # (A) 1.6 k/uL (1.0-4.8); Lymphocytes % (A) 33 %; MCH 31.5 pg (25.0-35.0); MCHC 30.6 g/dL (31.0-37.0); MCV 103.1 fL (80.0-100.0); Macrocytosis Slight; Mean Platelet Volume 8.7; Monocytes # (A) 0.3 k/uL (0-1.0); Monocytes % (A) 5 %; Neutrophils # (A) 2.6 k/uL (1.3-7.7); Neutrophils % (A) 54 %; Platelet Count 158 k/uL (150-450); RBC 3.14 m/uL (3.80-5.40); RDW 13.3 % (11.5-15.5); WBC 4.9 k/uL (3.8-10.6)
[2019-05-28 08:33] LABS: Calcium 8.2 mg/dL (8.4-10.2); Potassium 4.7 mmol/L (3.5-5.1)
--- NOTE | 2019-05-28 09:04 | PN ---
PROGRESS NOTE DATE OF SERVICE: 05/27/2019 REASON FOR FOLLOWUP: Enterococcus urinary tract infection. INTERVAL HISTORY: The patient is currently afebrile. The patient has been breathing comfortably. The patient denies having any chest pain. No cough. No nausea. No vomiting. No abdominal pain and no diarrhea. The patient's urinary symptoms have improved. PHYSICAL EXAMINATION: Blood pressure 120/74 with a pulse of 75, temperature 98.1, she is 9#% on room air. General description is an elderly female, lying in bed in no distress. RESPIRATORY SYSTEM: Unlabored breathing, clear to auscultation anteriorly. HEART: S1, S2. Regular rate and rhythm.. ABDOMEN: Soft, no tenderness. Extremities: No edema of the feet. LABS: Creatinine 1.02. Urine has been finalized with Staphylococcus, patient who is resistant to ampicillin and nitrofurantoin. DIAGNOSTIC IMPRESSION AND PLAN: Patient with new consultation, numerous drug infection seemed to be clinically improved with vancomycin. Will repeat UA. If overall improved and clear, no need for antibiotic on discharge. Otherwise, will try to arrange Zyvox for a short course. Continue supportive care. MMODL / IJN: [id number] /
[2019-05-28] MEDS: GABAPENTIN 100 MG CAP PO SCH (19:53)
[2019-05-28] MEDS: ATORVASTATIN 10 MG TAB PO SCH (19:53)
[2019-05-28] MEDS ORDERED: VANCOMYCIN TROUGH DUE 1 EACH MISC MISCELLANE ONE (22:00)
[2019-05-28] MEDS: VANCOMYCIN 1,250 MG in SODIUM CHLORIDE 0.9% 250 ML IVPB SCH (22:20)
--- NOTE | 2019-05-28 22:57 | PN ---
PROGRESS NOTE DATE OF SERVICE: 05/28/2019 REASON FOR FOLLOWUP: Enterococcus faecium urinary tract infection. INTERVAL HISTORY: The patient is currently afebrile. Patient has been breathing comfortably. The patient denies any chest pain. No cough. No nausea, vomiting, no abdominal pain. Urinary symptoms have improved. PHYSICAL EXAMINATION: Blood pressure 117/74 with a pulse of 68, temperature 97.7. She is 99% on room air. General description is an elderly female, lying in bed in no distress. Respiratory system: Unlabored breathing. Clear to auscultation anteriorly. Heart S1, S2. Regular rate and rhythm. Abdomen soft, no tenderness. LABS: Hemoglobin is 9.1, white count of 4.9, creatinine 1.17. DIAGNOSTIC IMPRESSION AND PLAN: Patient with Enterococcus faecium urinary tract infection. The patient has been covered with vancomycin. We will try to send the patient home on oral Zyvox, however as the patient is on Wellbutrin. We will keep the patient on IV vancomycin today and dose tomorrow. the patient discharged home on no antibiotics. This has been discussed in detail with the admitting physician. MMODL / IJN: [id number] /
[2019-05-29] MEDS: HYDROcodone/APAP 5-325MG 1 EACH TAB PO PRN ×3 (00:33→13:34)
[2019-05-29] MEDS: ACETAMINOPHEN TAB 325 MG TAB PO PRN (02:33)
[2019-05-29] MEDS: SODIUM CHLORIDE 0.9% 1,000 ML IV SCH ×2 (05:01→07:45)
[2019-05-29] MEDS: OXYBUTYNIN CHLORIDE 5 MG TAB PO SCH (07:52)
[2019-05-29] MEDS: METOPROLOL TARTRATE 50 MG TAB PO SCH (07:52)
[2019-05-29] MEDS: SODIUM BICARBONATE TAB 650 MG TAB PO SCH ×2 (07:52→15:20)
[2019-05-29] MEDS: buPROPion XL 150 MG TAB.ER.24H PO SCH (07:52)
[2019-05-29] MEDS: ENOXAPARIN 40 MG/0.4 ML SYRINGE SQ SCH (07:52)
[2019-05-29 07:53] VITALS: TEMP 97.8
--- NOTE | 2019-05-29 13:42 | CDI ---
Documentation Clarification Form Date: 05/29/2019 01:37:23 PM From: Shelly Johnston RN, CCDS Admit Date: 05/26/2019 09:12:00 AM Patient Name: Cheo Alamo Visit Number: [id number] ATTENTION: The Clinical Documentation Specialists (CDI) and [facility] Coding Staff appreciate your assistance in clarifying documentation. Please respond to the clarification below the line at the bottom and electronically sign. The CDI & [facility] Coding staff will review the response and follow-up if needed. Please note: Queries are made part of the Legal Health Record. If you have any questions, please contact the author of this message via ITS. Dr. Home Keith declining Hgb and Hct have been noted and lacks specificity to accurately reflect your patients severity of condition and clarification is needed. History/Risk Factors: CKD stage 3, Hypertensive nephrosclerosis Clinical indicators: Hemoglobin: 10.2/9.9 Hematocrit: 33.1/32.3 Treatment: Monitoring labs 0.9% NS @ 100 cc/hr In order to capture the severity of condition, please clarify the clinical significance of the declining Hgb and Hct and etiology if known: Chronic blood loss anemia Iron deficiency anemia Nutritional anemia Anemia of chronic kidney disease Unable to determine Other, please specify (Last Revision: December 2016) MTDD
--- NOTE | 2019-05-29 14:46 | PN ---
PROGRESS NOTE DATE OF SERVICE: 05/29/2019. REASON FOR FOLLOWUP: Enterococcus faecium urinary tract infection. INTERVAL HISTORY: The patient is currently afebrile, has been breathing comfortably. The patient denies having any chest pain, shortness of breath, no cough, no abdominal pain, and urinary symptoms have improved. PHYSICAL EXAMINATION: Blood pressure is 132/82 with a pulse of 68, temperature is 96.8, She is 96% on room air. General description is an elderly female, in the chair, in no distress. RESPIRATORY SYSTEM: Unlabored breathing, clear to auscultation anteriorly. HEART: S1, S2, regular rate and rhythm. ABDOMEN: Soft, no tenderness. LABS: Regular, therapeutic, creatinine is 1.17. DIAGNOSTIC IMPRESSION AND PLAN: Patient with E faecium urinary tract infection. She will receive her last dose of vancomycin today. After that, the will be able to be discharged home. No need for antibiotic on discharge. All her question and concerns were answered. MMODL / IJN: [id number] /
[2019-05-29 15:18] VITALS: BP 138/71; PULSE 63; RESP 18
[2019-05-29] MEDS: VANCOMYCIN 1,250 MG in SODIUM CHLORIDE 0.9% 250 ML IVPB SCH (16:02)
== END 2019-05-29 18:13 | disposition home or self-care (01) | DRG 690 ==
LOC: EC 17:54 → 4SSUR 22:25 → INTOOBSV 22:25 → OBSVTOIN 05-26 09:12
PROVIDERS: ADMIT Hospitalist; ATTEND Hospitalist
DX: N39.0 Urinary tract infection, site not specified (principal); Z16.24 Resistance to multiple antibiotics; E87.2 Acidosis; B95.2 Enterococcus as the cause of diseases classified elsewhere; E11.22 Type 2 diabetes mellitus with diabetic chronic kidney disease; E11.40 Type 2 diabetes mellitus with diabetic neuropathy, unspecified; E87.5 Hyperkalemia; F32.9 Major depressive disorder, single episode, unspecified; F41.9 Anxiety disorder, unspecified; I12.9 Hypertensive chronic kidney disease with stage 1 through stage 4 chronic kidney disease, or unspecified chronic kidney disease; J44.9 Chronic obstructive pulmonary disease, unspecified; N18.3 Chronic kidney disease, stage 3 (moderate); N20.0 Calculus of kidney; Z79.899 Other long term (current) drug therapy; Z83.3 Family history of diabetes mellitus; Z87.440 Personal history of urinary (tract) infections; Z88.0 Allergy status to penicillin; Z88.1 Allergy status to other antibiotic agents; Z90.710 Acquired absence of both cervix and uterus
CPT/HCPCS: 36415; 80048; 80053; 80202; 81001; 83605; 85025; 87040; 87077; 87086; 87186; 96365; 96375; 99284

== ENCOUNTER → 2019-06-07 | Outpatient (CLI) | payer MEDICARE ==
--- NOTE | 2019-06-07 15:44 | US ---
EXAMINATION TYPE: US venous doppler duplex LE RT DATE OF EXAM: 06/07/2019 3:17 PM COMPARISON: NONE CLINICAL HISTORY: M79.604 Pain in right leg. Edema and pain right leg for 4 days SIDE PERFORMED: right TECHNIQUE: The lower extremity deep venous system is examined utilizing real time linear array sonog chava with graded compression, doppler sonography and color-flow sonography. VESSELS IMAGED: External Iliac Vein (EIV) Common Femoral Vein Deep Femoral Vein Greater Saphenous Vein * Femoral Vein Popliteal Vein Small Saphenous Vein * Proximal Calf Veins (* superficial vessels) . There is normal flow, compressibility, vascular waveforms. Right Leg: No evidence of DVT as visualized. Technical limitations due to patient's body habitus, li mited evaluation of popliteal vein IMPRESSION: No evident deep venous thrombosis at or above the right knee.
== END | disposition home or self-care (01) ==
LOC: RADUSMAIN 14:45
PROVIDERS: ATTEND Family Medicine
DX: M79.604 Pain in right leg (principal)

== ENCOUNTER → 2020-01-11 | Day surgery (SDC) | payer MEDICARE ==
[2020-01-09 15:25] VITALS: BMI 32.9
[~2020-01-11] MED LIST changes: +LIDOCAINE 1% (10MG/ML) FOR IV START INTRADERMA PRN; +PROPOFOL 10 MG/ML 20 ML VIAL IV ONE
[2020-01-11 07:25] VITALS: RESP 16; TEMP 97
[2020-01-11 07:27] LABS: Glucose,Whole Blood 109 mg/dL (75-99)
--- NOTE | 2020-01-11 08:15 | P.PCN ---
Date of Procedure: 01/11/20 Procedure(s) Performed: Brief history: Patient is a pleasant 69-year-old white female scheduled for an elective upper endoscopy as well as colonoscopy as a part of evaluation of I deficiency anemia. She has prior history of gastric bypass surgery. She denies any abdominal pain, nausea vomiting, rectal bleeding or melena. Procedure performed: Esophagogastroduodenoscopy with biopsy Colonoscopy Preoperative diagnosis: Iron deficiency anemia Anesthesia: MAC Procedure: After informed consent was obtained from the patient was brought into the endoscopy unit and IV sedation was administered by anesthesia under continuous monitoring. Initially upper endoscopy was done. The Olympus GF 160 video endoscope was inserted inserted into the mouth and esophagus intubated without any difficulty and was gradually advanced into the stomach the gastric was appeared normal. There was a 5 mm anastomotic ulcer noted which was biopsied. The afferent and efferent loops appeared normal. Biopsies were done from the jejunum. The scope was then withdrawn into the gastric pouch which appeared normal. The scope was then withdrawn into the esophagus. The GE junction was located at 40 cm to the incisors. It appeared regular with no erythema erosions or ulcerations. Rest of the esophagus appeared normal. Patient tolerated the procedure well. At this time the patient continued to remain sedation. Initial digital rectal examination was normal. Olympus CF 160 video colonoscope was then inserted into the rectum and gradually advanced to the cecum without any difficulty. Careful examination was performed as the scope was gradually being withdrawn. The prep was poor in some areas of the colon.. The cecum, ascending colon, transverse colon, descending colon, sigmoid colon and rectum appeared normal. Some areas of the left colon could not be adequately visualized because of large amount of thick liquid stool that could not be suctioned out. Retroflexion was performed in the rectum and no lesions were noted. Patient tolerated the procedure well. Impression: 1. Upper endoscopy revealed 5 mm anastomotic ulcer and evidence of previous gastric bypass surgery with Kvng-en-Y anastomosis 2. Colonoscopy was within normal limits except for poor prep in some areas of the colon. Recommendations: Findings of this examination were discussed with the patient as well as her family. She was advised to follow with the biopsy results. She'll be started on Prilosec 20 mg daily and was advised to avoid NSAIDs. She can have a repeat colonoscopy in 5 years from now because of the poor prep was encountered on today's examination
[2020-01-11 08:45] VITALS: BP 153/79; PULSE 77
== END ==
LOC: ORWHC2ENDO 06:29
PROVIDERS: ATTEND Internal Medicine Gastroenterology
DX: K52.9 Noninfective gastroenteritis and colitis, unspecified (principal); K29.50 Unspecified chronic gastritis without bleeding; K28.9 Gastrojejunal ulcer, unspecified as acute or chronic, without hemorrhage or perforation; D50.9 Iron deficiency anemia, unspecified; E11.9 Type 2 diabetes mellitus without complications; Z98.84 Bariatric surgery status; Z88.2 Allergy status to sulfonamides; Z88.0 Allergy status to penicillin; Z88.5 Allergy status to narcotic agent
CPT/HCPCS: 88305; 45378; 43239; J2704

== ENCOUNTER 2020-01-22 09:57 | Inpatient (IN) | payer MEDICARE ==
--- NOTE | 2020-01-22 10:36 | ED ---
Weakness HPI - General Chief complaint: Weakness Stated complaint: poss COVID, CRYSTAL, weakness Time Seen by Provider: 01/22/20 09:58 Source: EMS, RN notes reviewed, old records reviewed Mode of arrival: EMS Limitations: no limitations - History of Present Illness Initial comments: Patient's a 69-year-old who presents emergency department today and presents to the emergency department today for evaluation for cough congestion and weakness. She complains of left-sided rib and chest wall pain with coughing. She also complains of diarrhea. Patient reports to feeling the symptoms for the past 10 days after having an EGD and colonoscopy. She reports that she was at the hospital at that time. - Related Data Home Medications Medication Instructions Recorded Confirmed Hydrocodone/Acetaminophen [[place] 1 tab PO Q6H PRN 05/15/18 01/11/20 5-325] Oxybutynin Chloride 5 mg PO BID 05/15/18 01/11/20 buPROPion XL [Wellbutrin XL] 150 mg PO DAILY 05/15/18 01/11/20 Acetaminophen Tab [Tylenol] 650 mg PO Q6H PRN 08/31/18 01/11/20 Aspirin/Acetaminophen/Caffeine 2 tab PO Q8H PRN 05/25/19 01/11/20 [Excedrin Migraine Caplet] Gabapentin [Neurontin] 100 mg PO BID 05/25/19 01/11/20 Cefuroxime Axetil [Ceftin] 500 mg PO BID 01/09/20 01/11/20 Previous Rx's Medication Instructions Recorded Metoprolol Tartrate [Lopressor] 50 mg PO BID #60 tab 09/01/18 Allergies Allergy/AdvReac Type Severity Reaction Status Date / Time meperidine [From Demerol] AdvReac Nausea & Verified 01/22/20 10:05 Vomiting Penicillins AdvReac "FALLS Verified 01/22/20 10:05 ALOT" Sulfa (Sulfonamide AdvReac Nausea & Verified 01/22/20 10:05 Antibiotics) Vomiting Review of Systems ROS Statement: Those systems with pertinent positive or pertinent negative responses have been documented in the HPI. ROS Other: All systems not noted in ROS Statement are negative. Past Medical History Past Medical History: Diabetes Mellitus, Hypertension, Neurologic Disorder Additional Past Medical History / Comment(s): NEUROPATHY, MIGRAINES, fractured right shoulder. CURRENTLY ON ANTIBIOTICS 12/25/19 FOR UTI-INSTRUCTED TO CALL DR. TUMMA. MOE. UTI-WAS ADMITTED 05/28/19 FOR IV ANTIBIOTIC [place] FOR UTI WITH MDRO History of Any Multi-Drug Resistant Organisms: Other MDRO Past Surgical History: Bariatric Surgery, Bladder Surgery, Hysterectomy Additional Past Surgical History / Comment(s): ORAL SURGERY. COLONOSCOPY. LAP BAND THEN HAD BARIATRIC SURGERY;. bladder surgery may have been for a benign cyst but is not sure. 16 LBS ABD. TISSUE REMOVED Past Anesthesia/Blood Transfusion Reactions: No Reported Reaction Past Psychological History: Anxiety, Depression Smoking Status: Never smoker - Past Family History Mother Family Medical History: Diabetes Mellitus Additional Family Medical History / Comment(s): At [facility] with UTI. Father Family Medical History: CVA/TIA, Diabetes Mellitus Sister(s) Family Medical History: Deep Vein Thrombosis (DVT) General Exam - General Exam Comments Initial Comments: 69-year-old female. Patient appears weak. Limitations: no limitations General appearance: alert, in no apparent distress Head exam: Present: atraumatic, normocephalic, normal inspection Eye exam: Present: normal appearance, PERRL, EOMI. Absent: scleral icterus, conjunctival injection, periorbital swelling ENT exam: Present: normal exam, mucous membranes moist Neck exam: Present: normal inspection. Absent: tenderness, meningismus, lymphadenopathy Respiratory exam: Present: wheezes, decreased breath sounds. Absent: normal lung sounds bilaterally, respiratory distress, rales, rhonchi, stridor Cardiovascular Exam: Present: regular rate, normal rhythm, normal heart sounds. Absent: systolic murmur, diastolic murmur, rubs, gallop, clicks GI/Abdominal exam: Present: soft, normal bowel sounds. Absent: distended, tenderness, guarding, rebound, rigid Rectal exam: Present: other (Patient was incontinent of stool when she arrived EMS due to diarrhea.) Extremities exam: Present: normal inspection, full ROM, normal capillary refill. Absent: tenderness, pedal edema, joint swelling, calf tenderness Back exam: Present: normal inspection Neurological exam: Present: alert, oriented X3, CN II-XII intact Psychiatric exam: Present: normal affect, normal mood Skin exam: Present: warm, dry, intact, normal color. Absent: rash Course Vital Signs 01/22/20 10:00 Temperature 99.7 F H Pulse Rate 67 Respiratory 18 Rate Blood Pressure 136/72 O2 Sat by Pulse 98 Oximetry Medical Decision Making - Medical Decision Making This patient's a 69-year-old female who presents to the ER today for evaluation chief complaint of difficulty in breathing, left-sided chest pain with cough. Also pointed diarrhea. Patient has had symptoms for the past 10 days after colonoscopy where she was in the hospital that time. Patient does discuss concern for possible Covid 19 infection. This time labs are labwork was reviewed. White blood cell count 2.9. Patient has diffuse wheezing on exam. Chest x-ray shows limits a left-sided pneumonia. Patient started on IV Rocephin blood cultures obtained. Also has evidence of urinary tract infection. I discussed the case Dr. Jung who discussed because the doctor because then we'll admit the Patient. - Lab Data Result diagrams: 01/22/20 11:12 01/22/20 11:12 Lab Results 01/22/20 01/22/20 01/22/20 Range/Units 11:12 11:12 11:12 WBC 2.9 L (3.8-10.6) k/uL RBC 3.75 L (3.80-5.40) m/uL Hgb 10.2 L (11.4-16.0) gm/dL Hct 34.4 (34.0-46.0) % MCV 91.6 (80.0-100.0) fL MCH 27.1 (25.0-35.0) pg MCHC 29.6 L (31.0-37.0) g/dL RDW 16.3 H (11.5-15.5) % Plt Count 138 L (150-450) k/uL MPV 8.7 Neutrophils % 64 % Lymphocytes % 29 % Monocytes % 5 % Eosinophils % 1 % Basophils % 0 % Neutrophils # 1.9 (1.3-7.7) k/uL Lymphocytes # 0.8 L (1.0-4.8) k/uL Monocytes # 0.1 (0-1.0) k/uL Eosinophils # 0.0 (0-0.7) k/uL Basophils # 0.0 (0-0.2) k/uL Hypochromasia Marked Anisocytosis Slight PT 10.4 (9.0-12.0) sec INR 1.0 (<1.2) APTT 28.0 (22.0-30.0) sec D-Dimer 0.27 (<0.60) mg/L FEU Sodium 137 (137-145) mmol/L Potassium 4.7 (3.5-5.1) mmol/L Chloride 112 H (98-107) mmol/L Carbon Dioxide 17 L (22-30) mmol/L Anion Gap 8 mmol/L BUN 17 (7-17) mg/dL Creatinine 1.36 H (0.52-1.04) mg/dL Est GFR (CKD-EPI)AfAm 46 (>60 ml/min/1.73 sqM) Est GFR (CKD-EPI)NonAf 40 (>60 ml/min/1.73 sqM) Glucose 99 (74-99) mg/dL Plasma Lactic Acid Christ (0.7-2.0) mmol/L Calcium 7.9 L (8.4-10.2) mg/dL Magnesium 1.6 (1.6-2.3) mg/dL Total Bilirubin 0.3 (0.2-1.3) mg/dL AST 41 H (14-36) U/L ALT 18 (4-34) U/L Alkaline Phosphatase 113 (38-126) U/L Lactate Dehydrogenase 704 H (313-618) U/L C-Reactive Protein 42.6 H (<10.0) mg/L Total Protein 5.7 L (6.3-8.2) g/dL Albumin 3.2 L (3.5-5.0) g/dL Urine Color Urine Appearance (Clear) Urine pH (5.0-8.0) Ur Specific [place] (1.001-1.035) Urine Protein (Negative) Urine Glucose (UA) (Negative) Urine Ketones (Negative) Urine Blood (Negative) Urine Nitrite (Negative) Urine Bilirubin (Negative) Urine Urobilinogen (<2.0) mg/dL Ur Leukocyte Esterase (Negative) Urine RBC (0-5) /hpf Urine WBC (0-5) /hpf Urine WBC Clumps (None) /hpf Ur Squamous Epith Cells (0-4) /hpf Urine Bacteria (None) /hpf Urine Mucus (None) /hpf 01/22/20 01/22/20 Range/Units 11:12 11:12 WBC (3.8-10.6) k/uL RBC (3.80-5.40) m/uL Hgb (11.4-16.0) gm/dL Hct (34.0-46.0) % MCV (80.0-100.0) fL MCH (25.0-35.0) pg MCHC (31.0-37.0) g/dL RDW (11.5-15.5) % Plt Count (150-450) k/uL MPV Neutrophils % % Lymphocytes % % Monocytes % % Eosinophils % % Basophils % % Neutrophils # (1.3-7.7) k/uL Lymphocytes # (1.0-4.8) k/uL Monocytes # (0-1.0) k/uL Eosinophils # (0-0.7) k/uL Basophils # (0-0.2) k/uL Hypochromasia Anisocytosis PT (9.0-12.0) sec INR (<1.2) APTT (22.0-30.0) sec D-Dimer (<0.60) mg/L FEU Sodium (137-145) mmol/L Potassium (3.5-5.1) mmol/L Chloride (98-107) mmol/L Carbon Dioxide (22-30) mmol/L Anion Gap mmol/L BUN (7-17) mg/dL Creatinine (0.52-1.04) mg/dL Est GFR (CKD-EPI)AfAm (>60 ml/min/1.73 sqM) Est GFR (CKD-EPI)NonAf (>60 ml/min/1.73 sqM) Glucose (74-99) mg/dL Plasma Lactic Acid Christ 0.7 (0.7-2.0) mmol/L Calcium (8.4-10.2) mg/dL Magnesium (1.6-2.3) mg/dL Total Bilirubin (0.2-1.3) mg/dL AST (14-36) U/L ALT (4-34) U/L Alkaline Phosphatase (38-126) U/L Lactate Dehydrogenase (313-618) U/L C-Reactive Protein (<10.0) mg/L Total Protein (6.3-8.2) g/dL Albumin (3.5-5.0) g/dL Urine Color Yellow Urine Appearance Turbid H (Clear) Urine pH 6.0 (5.0-8.0) Ur Specific [place] 1.015 (1.001-1.035) Urine Protein 1+ H (Negative) Urine Glucose (UA) Negative (Negative) Urine Ketones 1+ H (Negative) Urine Blood Small H (Negative) Urine Nitrite Negative (Negative) Urine Bilirubin Negative (Negative) Urine Urobilinogen <2.0 (<2.0) mg/dL Ur Leukocyte Esterase Large H (Negative) Urine RBC 40 H (0-5) /hpf Urine WBC >182 H (0-5) /hpf Urine WBC Clumps Many H (None) /hpf Ur Squamous Epith Cells 11 H (0-4) /hpf Urine Bacteria Few H (None) /hpf Urine Mucus Rare H (None) /hpf 01/22/20 10:38 EKG performed at 1035 shows normal sinus rhythm with sinus arrhythmia. Bolused QRS. Borderline EKG. Ventricular rate of 70 bpm. Pulse 176 ms. QS duration is 82 ms. QT QTc is 394/425 ms. - Radiology Data Radiology results: report reviewed Chest x-ray shows mild patchy infiltrate in the periphery of the left lower lung left base. Early pneumonia not excluded. Disposition Clinical Impression: UTI (urinary tract infection), Pneumonia, Diarrhea Disposition: ADMITTED IP TO THIS HOSP Condition: Stable Is patient prescribed a controlled substance at d/c from ED?: No Referrals: Alejandro Navas MD [Primary Care Provider] - 1-2 days Time of Disposition: 12:59
--- NOTE | 2020-01-22 11:26 | XR ---
EXAMINATION TYPE: XR chest 1V portable DATE OF EXAM: 01/22/2020 Comparison: 11/07/2017 Clinical History: 69-year-old female Suspected COVID-19 pneumonia Findings: Mild patchy peripheral left lower lung and left basilar opacity. Remaining interstitial prominence is unchanged. Heart upper limits of normal in size. 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 Impression: Some mild patchy infiltrate in the periphery of the left lower lung and left base. Early pneumonia no t excluded.
[2020-01-22] MEDS ORDERED: SODIUM CHLORIDE 0.9% 1,000 ML IV ONE (11:37)
[2020-01-22] MEDS ORDERED: ONDANSETRON 4 MG/2 ML VIAL IVP STA (11:37)
[2020-01-22] MEDS ORDERED: ALBUTEROL HFA INHALER INHALATION STA (11:37)
[2020-01-22 12:12] LABS: Anisocytosis Slight; Appearance,Urine Turbid (Clear); Bacteria,Urine Few /hpf; Basophils % (A) 0 %; Bilirubin,Urine Negative (Negative); Blood,Urine Small (Negative); Color,Urine Yellow; Eosinophils % (A) 1 %; Glucose,Urine (UA) Negative (Negative); HCT 34.4 % (34.0-46.0); HGB 10.2 gm/dL (11.4-16.0); Hypochromasia Marked; Ketones,Urine 1+ (Negative); Leukocyte Esterase,Urine Large (Negative); Lymphocytes # (A) 0.8 k/uL (1.0-4.8); Lymphocytes % (A) 29 %; MCH 27.1 pg (25.0-35.0); MCHC 29.6 g/dL (31.0-37.0); MCV 91.6 fL (80.0-100.0); Mean Platelet Volume 8.7; Monocytes # (A) 0.1 k/uL (0-1.0); Monocytes % (A) 5 %; Mucus,Urine Rare /hpf; Neutrophils # (A) 1.9 k/uL (1.3-7.7); Neutrophils % (A) 64 %; Nitrite,Urine Negative (Negative); Platelet Count 138 k/uL (150-450); Protein,Urine 1+ (Negative); RBC 3.75 m/uL (3.80-5.40); RBC,Urine 40 /hpf (0-5); RDW 16.3 % (11.5-15.5); Specific Gravity,Urine 1.015 (1.001-1.035); Squamous Epithelial Cell,Urine 11 /hpf (0-4); Urobilinogen,Urine <2.0 mg/dL (<2.0); WBC 2.9 k/uL (3.8-10.6); WBC,Urine >182 /hpf (0-5)
[2020-01-22 12:17] LABS: Albumin 3.2 g/dL (3.5-5.0); C Reactive Protein 42.6 mg/L (<10.0); Calcium 7.9 mg/dL (8.4-10.2); Magnesium 1.6 mg/dL (1.6-2.3); Potassium 4.7 mmol/L (3.5-5.1); Total Bilirubin 0.3 mg/dL (0.2-1.3); Total Protein 5.7 g/dL (6.3-8.2)
[2020-01-22 12:20] LABS: D-Dimer 0.27 mg/L FEU (<0.60); Prothrombin Time 10.4 sec (9.0-12.0)
[2020-01-22] MEDS ORDERED: cefTRIAXone IN SWFI 1,000 MG/10 ML SYRINGE IVP STA (12:27)
[2020-01-22] MEDS ORDERED: ACETAMINOPHEN TAB 500 MG TAB PO STA (12:43)
[2020-01-22] MEDS ORDERED: MORPHINE SULFATE 4 MG/ML SYRINGE IV PRN (13:01)
[2020-01-22] MEDS ORDERED: ACETAMINOPHEN TAB 325 MG TAB PO PRN ×2 (13:01→19:00)
[2020-01-22] MEDS ORDERED: ONDANSETRON 4 MG/2 ML VIAL IVP PRN (13:01)
[2020-01-22] MEDS ORDERED: IBUPROFEN 400 MG TAB PO PRN (13:01)
[2020-01-22] MEDS ORDERED: NALOXONE 0.4 MG/ML 1 ML VIAL IV PRN (13:01)
[2020-01-22] MEDS ORDERED: KETOROLAC 15 MG/ML 1 ML VIAL IVP PRN (13:01)
[2020-01-22] MEDS ORDERED: traMADol 50 MG TAB PO PRN (14:56)
--- NOTE | 2020-01-22 15:08 | P.HPIM ---
History of Present Illness Patient is a pleasant 69-year-old female came in with just apartment compensative cough congestion pruritic chest pain STARTED about a week ago. Patient is found to have left lower lobe pneumonia. Patient is positive for Covid 19. Patient doesn't have any symptoms of UTI including dysuria or increased urinary frequency. Patient in the urine is definitely abnormal. Patient was also having fever patient has low-grade temperature here today. Patient was also company of diarrhea which was significant multiple episodes yesterday and today she didn't have any diarrhea. Patient had elevated creatinine 1.3 baseline appears to be around 1.2 patient does have some non- anion gap metabolic acidosis which is secondary to hyperchloremia. Patient was comparing of cough without any symptoms sputum production. Review of Systems REVIEW OF SYSTEMS: CONSTITUTIONAL: As mentioned in HPI HEENT: No recent visual problems or hearing problems. Denied any sore throat. CARDIOVASCULAR: No orthopnea, PND, no palpitations, no syncope. PULMONARY: no hemoptysis. GASTROINTESTINALno abdominal pain. NEUROLOGICAL: No headaches, no weakness, no numbness. HEMATOLOGICAL: Denies any bleeding or petechiae. GENITOURINARY: Denies any burning micturition, frequency, or urgency. MUSCULOSKELETAL/RHEUMATOLOGICAL: Denies any joint pain, swelling, or any muscle pain. ENDOCRINE: Denies any polyuria or polydipsia. The rest of the 14-point review of systems is negative. Past Medical History Past Medical History: Diabetes Mellitus, Hypertension, Neurologic Disorder Additional Past Medical History / Comment(s): NEUROPATHY, MIGRAINES, fractured right shoulder. CURRENTLY ON ANTIBIOTICS 12/25/19 FOR UTI-INSTRUCTED TO CALL DR. TUMMA. MOE. UTI-WAS ADMITTED 05/28/19 FOR IV ANTIBIOTIC [place] FOR UTI WITH MDRO History of Any Multi-Drug Resistant Organisms: Other MDRO Past Surgical History: Bariatric Surgery, Bladder Surgery, Hysterectomy Additional Past Surgical History / Comment(s): ORAL SURGERY. COLONOSCOPY. LAP BAND THEN HAD BARIATRIC SURGERY;. bladder surgery may have been for a benign cyst but is not sure. 16 LBS ABD. TISSUE REMOVED Past Anesthesia/Blood Transfusion Reactions: No Reported Reaction Past Psychological History: Anxiety, Depression Smoking Status: Never smoker - Past Family History Mother Family Medical History: Diabetes Mellitus Additional Family Medical History / Comment(s): At [facility] with UTI. Father Family Medical History: CVA/TIA, Diabetes Mellitus Sister(s) Family Medical History: Deep Vein Thrombosis (DVT) Medications and Allergies Home Medications Medication Instructions Recorded Confirmed Type Oxybutynin Chloride 5 mg PO BID 05/15/18 01/22/20 History buPROPion XL [Wellbutrin XL] 150 mg PO DAILY 05/15/18 01/22/20 History Metoprolol Tartrate [Lopressor] 50 mg PO BID #60 tab 09/01/18 01/22/20 Rx Gabapentin [Neurontin] 100 mg PO BID 05/25/19 01/22/20 History Acetaminophen [Tylenol Arthritis] 650 mg PO BID 01/22/20 01/22/20 History HYDROcodone/APAP 7.5-325MG [[place] 1 tab PO BID 01/22/20 01/22/20 History 7.5-325] Omeprazole 20 mg PO DAILY 01/22/20 01/22/20 History Allergies Allergy/AdvReac Type Severity Reaction Status Date / Time meperidine [From Demerol] AdvReac Nausea & Verified 01/22/20 14:29 Vomiting Penicillins AdvReac "FALLS Verified 01/22/20 14:29 ALOT" Sulfa (Sulfonamide AdvReac Nausea & Verified 01/22/20 14:29 Antibiotics) Vomiting Physical Exam Vitals: Vital Signs Temp Pulse Resp BP Pulse Ox 01/22/20 10:00 99.7 F H 67 18 136/72 98 Intake and Output 01/22/20 01/22/20 01/22/20 06:59 14:59 22:59 Other: Weight 81.647 kg PHYSICAL EXAMINATION: GENERAL: The patient is alert and oriented x3, not in any acute distress. Well developed, well nourished. HEENT: Pupils are round and equally reacting to light. EOMI. No scleral icterus. No conjunctival pallor. Normocephalic, atraumatic. No pharyngeal erythema. No thyromegaly. CARDIOVASCULAR: S1 and S2 present. No murmurs, rubs, or gallops. PULMONARY: Chest is clear to auscultation, no wheezing or crackles. ABDOMEN: Soft, nontender, nondistended, normoactive bowel sounds. No palpable organomegaly. MUSCULOSKELETAL: No joint swelling or deformity. EXTREMITIES: No cyanosis, clubbing, or pedal edema. NEUROLOGICAL: Gross neurological examination did not reveal any focal deficits. SKIN: No rashes. Results CBC & Chem 7: 01/22/20 11:12 01/22/20 11:12 Labs: Abnormal Lab Results - Last 24 Hours (Table) 01/22/20 01/22/20 01/22/20 Range/Units 11:12 11:12 11:12 WBC 2.9 L (3.8-10.6) k/uL RBC 3.75 L (3.80-5.40) m/uL Hgb 10.2 L (11.4-16.0) gm/dL MCHC 29.6 L (31.0-37.0) g/dL RDW 16.3 H (11.5-15.5) % Plt Count 138 L (150-450) k/uL Lymphocytes # 0.8 L (1.0-4.8) k/uL Chloride 112 H (98-107) mmol/L Carbon Dioxide 17 L (22-30) mmol/L Creatinine 1.36 H (0.52-1.04) mg/dL Calcium 7.9 L (8.4-10.2) mg/dL AST 41 H (14-36) U/L Lactate Dehydrogenase 704 H (313-618) U/L C-Reactive Protein 42.6 H (<10.0) mg/L Total Protein 5.7 L (6.3-8.2) g/dL Albumin 3.2 L (3.5-5.0) g/dL Urine Appearance Turbid H (Clear) Urine Protein 1+ H (Negative) Urine Ketones 1+ H (Negative) Urine Blood Small H (Negative) Ur Leukocyte Esterase Large H (Negative) Urine RBC 40 H (0-5) /hpf Urine WBC >182 H (0-5) /hpf Urine WBC Clumps Many H (None) /hpf Ur Squamous Epith Cells 11 H (0-4) /hpf Urine Bacteria Few H (None) /hpf Urine Mucus Rare H (None) /hpf Coronavirus (PCR) (Not Detectd) 01/22/20 Range/Units 13:00 WBC (3.8-10.6) k/uL RBC (3.80-5.40) m/uL Hgb (11.4-16.0) gm/dL MCHC (31.0-37.0) g/dL RDW (11.5-15.5) % Plt Count (150-450) k/uL Lymphocytes # (1.0-4.8) k/uL Chloride (98-107) mmol/L Carbon Dioxide (22-30) mmol/L Creatinine (0.52-1.04) mg/dL Calcium (8.4-10.2) mg/dL AST (14-36) U/L Lactate Dehydrogenase (313-618) U/L C-Reactive Protein (<10.0) mg/L Total Protein (6.3-8.2) g/dL Albumin (3.5-5.0) g/dL Urine Appearance (Clear) Urine Protein (Negative) Urine Ketones (Negative) Urine Blood (Negative) Ur Leukocyte Esterase (Negative) Urine RBC (0-5) /hpf Urine WBC (0-5) /hpf Urine WBC Clumps (None) /hpf Ur Squamous Epith Cells (0-4) /hpf Urine Bacteria (None) /hpf Urine Mucus (None) /hpf Coronavirus (PCR) Detected A (Not Detectd) Assessment and Plan Plan: -Shortness of breath or pleuritic Chest pain: Possibility of a post viral pneu monia patient is positive for Covid infection. For now it's appropriate to continue Rocephin which is which will be continued. Infectious disease will be consulted. Blood cultures will be obtained. Patient was started on Decadron and will be in isolation for Covid. Patient d-dimer is within normal lives because of which possibility of PE is low -Acute hypoxic respiratory failure secondary to Covid 19. -Asymptomatic bacteriuria/contaminated urine sample patient doesn't have any signs or symptoms of UTI. Patient had UTI in the past and had multiple organisms in the past most of the murmur to drug resistant. -Acute renal failure on chronic kidney disease stage III, acute renal failure is secondary to prerenal azotemia from diarrhea continue with IV fluids. 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 -Metabolic acidosis from renal failure as well as hyperchloremia. -Hypertension -Depression -DVT prophylaxis with subcutaneous heparin
[2020-01-22] MEDS: ALBUTEROL HFA INHALER INHALATION SCH ×2 (15:36→19:32)
[2020-01-22] MEDS: HYDROcodone/APAP 5-325MG 1 EACH TAB PO PRN (16:54)
[2020-01-22] MEDS: HEPARIN SODIUM,PORCINE 5,000 UNIT/ML 1 ML VIAL SQ SCH (16:55)
[2020-01-22] MEDS: SODIUM CHLORIDE 0.9% 1,000 ML IV SCH ×2 (16:57→23:58)
[2020-01-22 18:51] LABS: Ferritin 42.9 ng/mL (10.0-291.0)
[2020-01-22] MEDS: GABAPENTIN 100 MG CAP PO SCH (21:30)
[2020-01-22] MEDS: METOPROLOL TARTRATE 50 MG TAB PO SCH (21:31)
[2020-01-22] MEDS: OXYBUTYNIN CHLORIDE 5 MG TAB PO SCH (21:31)
[2020-01-23] MEDS: HEPARIN SODIUM,PORCINE 5,000 UNIT/ML 1 ML VIAL SQ SCH ×2 (00:40→08:37)
[2020-01-23] MEDS: HYDROcodone/APAP 5-325MG 1 EACH TAB PO PRN ×2 (00:43→08:36)
[2020-01-23 07:01] LABS: Glucose,Whole Blood 84 mg/dL (75-99)
[2020-01-23 07:13] LABS: Anisocytosis Slight; Basophils % (A) 0 %; Eosinophils % (A) 1 %; HCT 32.6 % (34.0-46.0); HGB 9.8 gm/dL (11.4-16.0); Hypochromasia Marked; Lymphocytes % (A) 36 %; MCH 27.6 pg (25.0-35.0); MCHC 29.9 g/dL (31.0-37.0); MCV 92.1 fL (80.0-100.0); Mean Platelet Volume 8.6; Monocytes # (A) 0.1 k/uL (0-1.0); Monocytes % (A) 4 %; Neutrophils # (A) 1.6 k/uL (1.3-7.7); Neutrophils % (A) 58 %; Platelet Count 129 k/uL (150-450); RBC 3.54 m/uL (3.80-5.40); RDW 16.3 % (11.5-15.5); WBC 2.8 k/uL (3.8-10.6)
--- NOTE | 2020-01-23 07:16 | XR ---
EXAMINATION TYPE: XR chest 1V portable DATE OF EXAM: 01/23/2020 Comparison: 01/22/2020 Clinical History: 69-year-old female pneumonia Findings: Heart remains upper limits of normal in size. Increasing patchy medial right basilar, peripheral righ t mid and lower lung opacities. Continued patchy left basilar and peripheral left lower lung opacitie s. Impression: Continued patchy left lower lung and basilar opacities. Some increasing infiltrate in the right mid a nd lower lung.
[2020-01-23 07:58] VITALS: BP 142/62; PULSE 63; RESP 16; TEMP 98.7
[2020-01-23] MEDS: METOPROLOL TARTRATE 50 MG TAB PO SCH (08:36)
[2020-01-23] MEDS: GABAPENTIN 100 MG CAP PO SCH (08:36)
[2020-01-23] MEDS: SODIUM CHLORIDE 0.9% 1,000 ML IV SCH (08:37)
[2020-01-23] MEDS: OXYBUTYNIN CHLORIDE 5 MG TAB PO SCH (08:37)
[2020-01-23] MEDS ORDERED: AZITHROMYCIN 500 MG TAB PO SCH (09:00)
[2020-01-23] MEDS ORDERED: buPROPion XL 150 MG TAB.ER.24H PO SCH (09:00)
[2020-01-23] MEDS ORDERED: PANTOPRAZOLE 40 MG/10 ML VIAL IV SCH (09:00)
[2020-01-23] MEDS ORDERED: ZINC SULFATE 220 MG CAP PO SCH (09:00)
[2020-01-23] MEDS ORDERED: dexAMETHasone 2 MG TAB PO SCH (09:00)
[2020-01-23] MEDS: ALBUTEROL HFA INHALER INHALATION SCH ×3 (09:35→16:04)
--- NOTE | 2020-01-23 09:50 | CONS ---
CONSULTATION DATE OF SERVICE: 01/22/2020 REASON FOR CONSULTATION: Pneumonia. HISTORY OF PRESENT ILLNESS: The patient is a 69-year-old female presenting to the ER this morning for evaluation of increasing shortness of breath, cough and congestion and weakness. The patient has been going on for more than a week before presentation to the hospital. The patient's cough is moderate in intensity but not bringing up any sputum. Still complaining of some pain to the left side of the chest with coughing and taking a deep breath. The patient denies some nausea but no vomiting. Denies any abdominal pain. She did have multiple loose stools but no blood or mucus in the stool. Denies having any burning or frequency of urine. With these symptoms, the patient was evaluated by the ER physician. On arrival to the ER, the patient did have a low-grade fever of 99.7. The patient did have slight hypoxemia requiring supplemental oxygen. The patient did have mild leukopenia as well as therefore pain and D-dimer was normal at 0.27. AST elevated 41 and LDH was 704. CRP of 42.6 bronchus was also elevated. Did have positive UA: PCR came back positive. The patient did have a chest x-ray which shows mild patchy infiltrate in the periphery of the left lower lung and left base. The patient did receive a dose of Rocephin in the ER, also started on heparin, dexamethasone, she has been admitted to the hospital. Infectious Disease was consulted for further management of antibiotic therapy. REVIEW OF SYSTEMS: Positive points have been mentioned in HPI. Rest of the systems are negative. PAST MEDICAL HISTORY: Hypertension, diabetes mellitus, neuropathy, migraine. PAST SURGICAL HISTORY: Bariatric surgery, hysterectomy, lap band. SOCIAL HISTORY: No history of smoking. No drinking or drug use, . FAMILY HISTORY: Mother history of diabetes mellitus. Father history of diabetes and CVA, TIA. ALLERGIES: To PENICILLIN, SULFA. MEDICATIONS: Include the patient is currently on Tylenol, [place], Wellbutrin, dexamethasone, heparin subcu, Lopressor, Narcan, Zofran, Protonix. PHYSICAL EXAMINATION: Blood pressure 152/72 with a pulse of 59, temp 98.7, she is 92% on 2 L nasal cannula. General description is an elderly female up in the bed in no distress. No tachypnea or accessory muscle for respiration use. HEENT: Examination shows slight pallor. No scleral icterus, oral mucosa dry. NECK: Trachea central, no site no thyromegaly lungs unlabored breathing, decreased breath sounds at the base. No wheeze. HEART: S1, S2. Regular rate and rhythm.. ABDOMEN: Soft, nontender. EXTREMITIES: No edema of the feet. LABS: Hemoglobin is 10.8, white count 2.9. D-dimer 0.27. CRP, Rocaltrol, and LDH elevated, urine is positive. DIAGNOSTIC IMPRESSION/PLAN: 1. Patient hospital with increasing shortness of breath, cough and congestion with concern for pneumonia. Patient did have COVID test positive; however, the patient also have elevated procalcitonin with concern for possible bacterial pneumonia community-acquired. 2. Positive UA, but no significant urinary symptoms possible asymptomatic bacteriuria. 3. The patient does have multiple antibiotic allergies that will limit the number of antibiotics safe to use. PLAN: 1. Will try to obtain a sputum for Gram stain and culture. 2. Repeat inflammatory markers tomorrow. 3. Repeat chest x-ray tomorrow. 4. We will start the patient on Rocephin 1 g daily and Zithromax. Continue with Decadron and heparin subcu. 5. Will follow on clinical condition and further adjust medication if needed. Thank you for this consultation. Will follow this patient along with you. MMODL / IJN: [id number] /
[2020-01-23 11:40] LABS: Glucose,Whole Blood 104 mg/dL (75-99)
--- NOTE | 2020-01-23 12:27 | P.DS ---
Providers Date of admission: 01/22/20 13:02 Attending physician: Timothy Esquivel MD Consults: 01/22/20 14:56 Consult Physician Routine Consulting Provider: Mitch Francis Consult Reason/Comments: kg Do you want consulting provider notified?: Yes Primary care physician: [facility] Course: 69-year-old female came in with just apartment compensative cough congestion pruritic chest pain STARTED about a week ago. Patient is found to have left lower lobe pneumonia. Patient is positive for Covid 19. Patient doesn't have any symptoms of UTI including dysuria or increased urinary frequency. Patient in the urine is definitely abnormal. Patient was also having fever patient has low-grade temperature here today. Patient was also company of diarrhea which was significant multiple episodes yesterday and today she didn't have any diarrhea. Patient had elevated creatinine 1.3 baseline appears to be around 1.2 patient does have some non-anion gap metabolic acidosis which is secondary to hyperchloremia. Patient was comparing of cough without any symptoms sputum production. 01/23/2020 Patient is clinically doing well will be discharged on Ceftin for 5 more days for most probable post viral pneumonia. Patient will be given 6 more days of Decadron along with albuterol. Her diarrhea improved and do not have any basic metabolic profile available from today I ordered the labs still pending at this time. PHYSICAL EXAMINATION: GENERAL: The patient is alert and oriented x3, not in any acute distress. Well developed, well nourished. HEENT: Pupils are round and equally reacting to light. EOMI. No scleral icterus. No conjunctival pallor. Normocephalic, atraumatic. No pharyngeal erythema. No thyromegaly. CARDIOVASCULAR: S1 and S2 present. No murmurs, rubs, or gallops. PULMONARY: Chest is clear to auscultation, no wheezing or crackles. ABDOMEN: Soft, nontender, nondistended, normoactive bowel sounds. No palpable organomegaly. MUSCULOSKELETAL: No joint swelling or deformity. EXTREMITIES: No cyanosis, clubbing, or pedal edema. NEUROLOGICAL: Gross neurological examination did not reveal any focal deficits. SKIN: No rashes. Assessment and Plan Plan: -Shortness of breath or pleuritic Chest pain: Possibility of a post viral pneumonia patient is positive for Covid infection. -Acute hypoxic respiratory failure secondary to Covid 19. -Asymptomatic bacteriuria/contaminated urine sample will not require any antibiotics for this -Acute renal failure on chronic kidney disease stage III, acute renal failure is secondary to prerenal azotemia from diarrhea was on IV fluids here. Repeat BMP is not available at this time -Metabolic acidosis from renal failure as well as hyperchloremia. -Hypertension -Depression Patient Condition at Discharge: Stable Plan - Discharge Summary Discharge Rx Participant: Yes New Discharge Prescriptions: New Cefuroxime Axetil [Ceftin] 500 mg PO BID 5 Days #10 tab dexAMETHasone [Hexadrol] 6 mg PO DAILY #6 tab Albuterol Inhaler [Ventolin Hfa Inhaler] 2 puff INHALATION RT-QID #1 inhaler Continue Oxybutynin Chloride 5 mg PO BID buPROPion XL [Wellbutrin XL] 150 mg PO DAILY Metoprolol Tartrate [Lopressor] 50 mg PO BID #60 tab Gabapentin [Neurontin] 100 mg PO BID Acetaminophen [Tylenol Arthritis] 650 mg PO BID Omeprazole 20 mg PO DAILY HYDROcodone/APAP 7.5-325MG [[place] 7.5-325] 1 tab PO BID Discharge Medication List Oxybutynin Chloride 5 mg PO BID 05/15/18 [History] buPROPion XL [Wellbutrin XL] 150 mg PO DAILY 05/15/18 [History] Metoprolol Tartrate [Lopressor] 50 mg PO BID #60 tab 09/01/18 [Rx] Gabapentin [Neurontin] 100 mg PO BID 05/25/19 [History] Acetaminophen [Tylenol Arthritis] 650 mg PO BID 01/22/20 [History] HYDROcodone/APAP 7.5-325MG [[place] 7.5-325] 1 tab PO BID 01/22/20 [History] Omeprazole 20 mg PO DAILY 01/22/20 [History] Albuterol Inhaler [Ventolin Hfa Inhaler] 2 puff INHALATION RT-QID #1 inhaler 01/23/20 [Rx] Cefuroxime Axetil [Ceftin] 500 mg PO BID 5 Days #10 tab 01/23/20 [Rx] dexAMETHasone [Hexadrol] 6 mg PO DAILY #6 tab 01/23/20 [Rx] Follow up Appointment(s)/Referral(s): Alejandro Navas MD [Primary Care Provider] - 02/11/20 1:20 pm Ra[facility], [NON-STAFF] - As Needed Patient Instructions/Handouts: Viral Pneumonia (ED) Discharge Disposition: HOME SELF-CARE
[2020-01-23 14:14] LABS: African American GFR (CKD) 44.3 (60.0-200.0); Albumin 3.8 g/dL (3.80-4.90); Albumin/Globulin Ratio 2.11 (1.60-3.17); Anion Gap 9.9 mmol/L (4.00-12.00); C Reactive Protein 2.7 mg/dL (0.0-0.8); Calcium 8.2 mg/dL (8.7-10.3); Carbon Dioxide 18.1 mmol/L (21.6-31.8); Globulin 1.8 g/dL (1.6-3.3); Non-African American GFR(CKD) 38.2 (60.0-200.0); Potassium 4.7 mmol/L (3.5-5.5); Total Bilirubin 0.1 mg/dL (0.3-1.2); Total Protein 5.6 g/dL (6.2-8.2)
[2020-01-23 16:41] LABS: Glucose,Whole Blood 169 mg/dL (75-99)
[2020-01-24] MEDS ORDERED: PANTOPRAZOLE 40 MG TABLET PO SCH (07:30)
== END 2020-01-23 17:10 | disposition home or self-care (01) | DRG 177 ==
LOC: EC 09:57 → 4SSUR 13:02
PROVIDERS: ADMIT Internal Medicine; ATTEND Internal Medicine
DX: U07.1 COVID-19 (principal); J96.01 Acute respiratory failure with hypoxia; J12.89 Other viral pneumonia; N17.9 Acute kidney failure, unspecified; E87.2 Acidosis; I12.9 Hypertensive chronic kidney disease with stage 1 through stage 4 chronic kidney disease, or unspecified chronic kidney disease; N18.30 Chronic kidney disease, stage 3 unspecified; F41.9 Anxiety disorder, unspecified; F32.9 Major depressive disorder, single episode, unspecified; E87.8 Other disorders of electrolyte and fluid balance, not elsewhere classified; E11.40 Type 2 diabetes mellitus with diabetic neuropathy, unspecified; E11.22 Type 2 diabetes mellitus with diabetic chronic kidney disease; D72.819 Decreased white blood cell count, unspecified; G43.909 Migraine, unspecified, not intractable, without status migrainosus; Z79.899 Other long term (current) drug therapy; Z82.3 Family history of stroke; Z90.710 Acquired absence of both cervix and uterus; Z87.440 Personal history of urinary (tract) infections; Z83.3 Family history of diabetes mellitus; Z88.5 Allergy status to narcotic agent; Z88.0 Allergy status to penicillin; Z88.2 Allergy status to sulfonamides; Z98.890 Other specified postprocedural states; Z82.49 Family history of ischemic heart disease and other diseases of the circulatory system
CPT/HCPCS: 36415; 51702; 71045; 80053; 81001; 82728; 83605; 83615; 83735; 84145; 85025; 85379; 85610; 85730; 86140; 87040; 87635; 93005; 94640; 96361; 96372; 96374; 96375; 99285

== ENCOUNTER 2020-01-28 10:44 | Inpatient (IN) | payer MEDICARE ==
--- NOTE | 2020-01-28 12:16 | XR ---
EXAMINATION TYPE: XR chest 1V portable DATE OF EXAM: 01/28/2020 COMPARISON: 01/23/2020 HISTORY: Shortness of breath TECHNIQUE: Single frontal view of the chest is obtained. FINDINGS: Heart is enlarged. Bilateral patchy areas of infiltrate are seen with small left effusion. No pneumothorax. Chronic deformity of the right humeral neck. Diffuse osteopenia. No pneumothorax. IMPRESSION: 1. Diffuse bilateral patchy infiltrates correlate for pneumonia.
[2020-01-28 12:25] LABS: Albumin 3.5 g/dL (3.5-5.0); C Reactive Protein 85.8 mg/L (<10.0); Calcium 8.5 mg/dL (8.4-10.2); Potassium 4.5 mmol/L (3.5-5.1); Total Bilirubin 0.4 mg/dL (0.2-1.3); Total Protein 6.3 g/dL (6.3-8.2)
[2020-01-28 12:27] LABS: Anisocytosis Slight; Basophils % (A) 0 %; Eosinophils # (A) 0.1 k/uL (0-0.7); Eosinophils % (A) 1 %; HCT 37.3 % (34.0-46.0); HGB 11.3 gm/dL (11.4-16.0); Hypochromasia Moderate; Lymphocytes # (A) 0.8 k/uL (1.0-4.8); Lymphocytes % (A) 10 %; MCH 26.7 pg (25.0-35.0); MCHC 30.3 g/dL (31.0-37.0); MCV 88.1 fL (80.0-100.0); Mean Platelet Volume 9.1; Monocytes # (A) 0.2 k/uL (0-1.0); Monocytes % (A) 3 %; Neutrophils # (A) 6.9 k/uL (1.3-7.7); Neutrophils % (A) 85 %; Platelet Count 217 k/uL (150-450); RBC 4.24 m/uL (3.80-5.40); RDW 16.2 % (11.5-15.5); WBC 8.2 k/uL (3.8-10.6)
[2020-01-28] MEDS ORDERED: NALOXONE 0.4 MG/ML 1 ML VIAL IV PRN (12:33)
--- NOTE | 2020-01-28 12:37 | ED ---
SOB HPI - General Chief Complaint: Shortness of Breath Stated Complaint: +COVID Time Seen by Provider: 01/28/20 10:57 Source: patient, EMS Mode of arrival: EMS - History of Present Illness Initial Comments: 69-year-old female who is outpatient covid positive presenting to emergency department today for chief complaint of SOB, covid +. She states that herself and her earlier this week testicle positive for Covid. She states she has had slight cough and increasing shortness of breath. Patient states her shortness of breath increased and she called EMS for transportation to the emergency department she denies any chest pain and leg swelling. Deep inspiration. She denies any neck stiffness abdomen pain nausea vomiting. Patient denies any rashes. Patient states she does feel weak all over. Making it difficult to walk she states she lives alone is concerned patient denies additional complaints - Related Data Home Medications Medication Instructions Recorded Confirmed Oxybutynin Chloride 5 mg PO BID 05/15/18 01/28/20 buPROPion XL [Wellbutrin XL] 150 mg PO DAILY 05/15/18 01/28/20 Gabapentin [Neurontin] 100 mg PO BID 05/25/19 01/28/20 Acetaminophen [Tylenol Arthritis] 650 mg PO BID PRN 01/22/20 01/28/20 HYDROcodone/APAP 7.5-325MG [[place] 1 tab PO BID 01/22/20 01/28/20 7.5-325] Omeprazole 20 mg PO DAILY 01/22/20 01/28/20 Previous Rx's Medication Instructions Recorded Metoprolol Tartrate [Lopressor] 50 mg PO BID #60 tab 09/01/18 Albuterol Inhaler [Ventolin Hfa 2 puff INHALATION RT-QID #1 inhaler 01/23/20 Inhaler] Cefuroxime Axetil [Ceftin] 500 mg PO BID 5 Days #10 tab 01/23/20 Allergies Allergy/AdvReac Type Severity Reaction Status Date / Time meperidine [From Demerol] AdvReac Nausea & Verified 01/28/20 11:21 Vomiting Penicillins AdvReac "FALLS Verified 01/28/20 11:21 ALOT" Sulfa (Sulfonamide AdvReac Nausea & Verified 01/28/20 11:21 Antibiotics) Vomiting Review of Systems ROS Statement: Those systems with pertinent positive or pertinent negative responses have been documented in the HPI. ROS Other: All systems not noted in ROS Statement are negative. Past Medical History Past Medical History: Diabetes Mellitus, Hypertension, Neurologic Disorder Additional Past Medical History / Comment(s): NEUROPATHY, MIGRAINES, fractured right shoulder. CURRENTLY ON ANTIBIOTICS 12/25/19 FOR UTI-INSTRUCTED TO CALL DR. TUMMA. MOE. UTI-WAS ADMITTED 05/28/19 FOR IV ANTIBIOTIC TX FOR UTI WITH MDRO History of Any Multi-Drug Resistant Organisms: Other MDRO Past Surgical History: Bariatric Surgery, Bladder Surgery, Hysterectomy Additional Past Surgical History / Comment(s): ORAL SURGERY. COLONOSCOPY. LAP BAND THEN HAD BARIATRIC SURGERY;. bladder surgery may have been for a benign cyst but is not sure. 16 LBS ABD. TISSUE REMOVED Past Anesthesia/Blood Transfusion Reactions: No Reported Reaction Past Psychological History: Anxiety, Depression Smoking Status: Never smoker - Past Family History Mother Family Medical History: Diabetes Mellitus Additional Family Medical History / Comment(s): At [facility] with UTI. Father Family Medical History: CVA/TIA, Diabetes Mellitus Sister(s) Family Medical History: Deep Vein Thrombosis (DVT) General Exam - General Exam Comments Initial Comments: General: The patient is awake and alert, in no distress Eye: +3 mm pupils are equal, round and reactive to light, extra-ocular movements are intact. No nystagmus. There is normal conjunctiva bilaterally. No signs of icterus. Ears, nose, mouth and throat: There are moist mucous membranes and no oral lesions. Neck: The neck is supple, there is no tenderness or JVD. Cardiovascular: There is a regular rate and rhythm. No murmur, rub or gallop is appreciated. Respiratory: Respirations are non-labored, breath sounds are equal. No wheezes, stridor, rales, or rhonchi. There is dry cough on exam. Some rales appreciated. Gastrointestinal: Soft, non-distended, non-tender abdomen without masses or organomegaly noted. There is no rebound or guarding presen Musculoskeletal: Normal ROM, no tenderness. Strength 5/5. Sensation intact. Radial pulses equal bilaterally 2+. Neurological: A&O x 3. CN II-XII intact, There are no obvious motor or sensory deficits. Coordination appears grossly intact. Speech is normal. Skin: Skin is warm and dry and no rashes or lesions are noted. No LE edema. NO calf pain to palpation. Psychiatric: Cooperative, appropriate mood & affect, normal judgment. Course Vital Signs 01/28/20 01/28/20 10:56 11:10 Temperature 98.4 F Pulse Rate 72 Respiratory 18 Rate Blood Pressure 141/64 O2 Sat by Pulse 92 L 97 Oximetry Medical Decision Making - Medical Decision Making 69yo covid + patient. with cc SOB, generalized weakness. New onset afib/flutter. no known history or reviewed history in chart, not on thinners. Patient has 4:1 block therefore rate is WNL. Patient started on lovenox sq. due to patient's age comorbidities we will admit for cardiology consultation, respiratory monitoring. Dr. Corrales is agreeable to care plan admission. pt agreeable and prefers admission. Does not appear in distress on arrival. - Lab Data Result diagrams: 01/28/20 11:21 01/28/20 11:21 Lab Results 01/28/20 01/28/20 01/28/20 Range/Units 11:21 11:21 11:21 WBC 8.2 (3.8-10.6) k/uL RBC 4.24 (3.80-5.40) m/uL Hgb 11.3 L (11.4-16.0) gm/dL Hct 37.3 (34.0-46.0) % MCV 88.1 (80.0-100.0) fL MCH 26.7 (25.0-35.0) pg MCHC 30.3 L (31.0-37.0) g/dL RDW 16.2 H (11.5-15.5) % Plt Count 217 (150-450) k/uL MPV 9.1 Neutrophils % 85 % Lymphocytes % 10 % Monocytes % 3 % Eosinophils % 1 % Basophils % 0 % Neutrophils # 6.9 (1.3-7.7) k/uL Lymphocytes # 0.8 L (1.0-4.8) k/uL Monocytes # 0.2 (0-1.0) k/uL Eosinophils # 0.1 (0-0.7) k/uL Basophils # 0.0 (0-0.2) k/uL Hypochromasia Moderate Anisocytosis Slight PT 9.6 (9.0-12.0) sec INR 0.9 (<1.2) APTT 18.0 L (22.0-30.0) sec D-Dimer 0.85 H (<0.60) mg/L FEU Sodium 133 L (137-145) mmol/L Potassium 4.5 (3.5-5.1) mmol/L Chloride 104 (98-107) mmol/L Carbon Dioxide 22 (22-30) mmol/L Anion Gap 7 mmol/L BUN 18 H (7-17) mg/dL Creatinine 1.21 H (0.52-1.04) mg/dL Est GFR (CKD-EPI)AfAm 53 (>60 ml/min/1.73 sqM) Est GFR (CKD-EPI)NonAf 46 (>60 ml/min/1.73 sqM) Glucose 115 H (74-99) mg/dL Plasma Lactic Acid Christ (0.7-2.0) mmol/L Calcium 8.5 (8.4-10.2) mg/dL Magnesium 2.0 (1.6-2.3) mg/dL Total Bilirubin 0.4 (0.2-1.3) mg/dL AST 26 (14-36) U/L ALT 11 (4-34) U/L Alkaline Phosphatase 112 (38-126) U/L Lactate Dehydrogenase 889 H (313-618) U/L Troponin I (0.000-0.034) ng/mL C-Reactive Protein 85.8 H (<10.0) mg/L Total Protein 6.3 (6.3-8.2) g/dL Albumin 3.5 (3.5-5.0) g/dL 01/28/20 01/28/20 Range/Units 11:21 12:30 WBC (3.8-10.6) k/uL RBC (3.80-5.40) m/uL Hgb (11.4-16.0) gm/dL Hct (34.0-46.0) % MCV (80.0-100.0) fL MCH (25.0-35.0) pg MCHC (31.0-37.0) g/dL RDW (11.5-15.5) % Plt Count (150-450) k/uL MPV Neutrophils % % Lymphocytes % % Monocytes % % Eosinophils % % Basophils % % Neutrophils # (1.3-7.7) k/uL Lymphocytes # (1.0-4.8) k/uL Monocytes # (0-1.0) k/uL Eosinophils # (0-0.7) k/uL Basophils # (0-0.2) k/uL Hypochromasia Anisocytosis PT (9.0-12.0) sec INR (<1.2) APTT (22.0-30.0) sec D-Dimer (<0.60) mg/L FEU Sodium (137-145) mmol/L Potassium (3.5-5.1) mmol/L Chloride (98-107) mmol/L Carbon Dioxide (22-30) mmol/L Anion Gap mmol/L BUN (7-17) mg/dL Creatinine (0.52-1.04) mg/dL Est GFR (CKD-EPI)AfAm (>60 ml/min/1.73 sqM) Est GFR (CKD-EPI)NonAf (>60 ml/min/1.73 sqM) Glucose (74-99) mg/dL Plasma Lactic Acid Christ 1.4 (0.7-2.0) mmol/L Calcium (8.4-10.2) mg/dL Magnesium (1.6-2.3) mg/dL Total Bilirubin (0.2-1.3) mg/dL AST (14-36) U/L ALT (4-34) U/L Alkaline Phosphatase (38-126) U/L Lactate Dehydrogenase (313-618) U/L Troponin I <0.012 (0.000-0.034) ng/mL C-Reactive Protein (<10.0) mg/L Total Protein (6.3-8.2) g/dL Albumin (3.5-5.0) g/dL Disposition Clinical Impression: Pneumonia due to COVID-19 virus, Atrial flutter, New onset a-fib, Generalized weakness Disposition: ADMITTED IP TO THIS [facility] Condition: Stable Is patient prescribed a controlled substance at d/c from ED?: No Referrals: Alejandro Navas MD [Primary Care Provider] - 1-2 days Time of Disposition: 13:43 Decision to Admit Reason: Admit from EC Decision Date: 01/28/20 Decision Time: 13:43
[2020-01-28] MEDS ORDERED: ENOXAPARIN 80 MG/0.8 ML SYRINGE SQ STA (12:38)
[2020-01-28 12:40] LABS: INR 0.9 (<1.2); Prothrombin Time 9.6 sec (9.0-12.0)
[2020-01-28] MEDS ORDERED: SODIUM CHLORIDE 0.9% 500 ML 500 ML IV ONE (12:45)
[2020-01-28 12:53] LABS: D-Dimer 0.85 mg/L FEU (<0.60)
[2020-01-28] MEDS ORDERED: ACETAMINOPHEN TAB 325 MG TAB PO PRN (13:44)
[2020-01-28] MEDS ORDERED: OXYBUTYNIN CHLORIDE 5 MG TAB PO ONE (14:15)
[2020-01-28] MEDS ORDERED: buPROPion XL 150 MG TAB.ER.24H PO ONE (14:15)
--- NOTE | 2020-01-28 15:00 | P.HPIM ---
History of Present Illness H&P Date: 01/28/20 Chief Complaint: short of breath History of presenting complaint: This is a very pleasant [address] Navas. Chronic stable medical conditions include diabetes, hypertension, depression and anxiety, bilateral kidney stones, COPD stage III. patient is a resident of [facility] [address]. Does use a walker.both her and herself tested positive for COVID on January 21. She has become more short of breath progressively. Has a slight cough. No headache. Having a lot of chills. No fever. Appetite is okay. Does feel weak and tired. No diarrhea.patient was just discharged from the hospital on January 22. Patient had tested positive for COVID 19 PCR on January 21.patient was discharged home on the dose of dexamethasone for 6 days. Review of systems: GEN.: chills EYES: None HEENT: None NECK: None RESPIRATORY: as above CARDIOVASCULAR: None GASTROINTESTINAL: None GENITOURINARY: As above MUSCULOSKELETAL: Joint pains LYMPHATICS: None HEMATOLOGICAL: None PSYCHIATRY: None NEUROLOGICAL: None Past medical history to include: Diabetes, hypertension, peripheral neuropathy, depression and anxiety, CKD stage III Social history: . Lives at [facility]. No smoking or alcohol. Physical examination: VITAL SIGNS: 98.4, 72, 18, 141/64, 92% on room air GENERAL: BMI 32.9, laying in bed, tired EYES: Pupils equal. Conjunctiva normal. HEENT: External appearance of nose and ears normal, oral cavity grossly normal. NECK: JVD not raised; masses not palpable. HEART: First and second heart sounds are normal; no edema. LUNGS: Respiratory rate increased; decreased breath sounds ABDOMEN: Soft, nontender, liver spleen not palpable, no masses palpable. PSYCH: Alert and oriented x3; mood and affect anxious MUSCULAR skeletal: Evidence of OA NEUROLOGICAL: Cranial nerves grossly intact; no facial asymmetry, power and sensation grossly intact. LYMPHATICS: No lymph nodes palpable in the axilla and neck INVESTIGATIONS, reviewed in the clinical context: white count 8.2 hemoglobin 11.3 platelets 217 d-dimer 0.85 potassium 4.5 bun 18 creatinine 1.21 LDH 889 troponin I less than 0.012 CRP 85.8 EKG tracing personally reviewed by me-Atrial flutter with 40s to 1 conduction rate controlled Chest x-ray film personally reviewed by me-Bilateral infiltrates patient tested positive for COVID 19-January 21. 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 Plan: start the patient on temporary dose of Lovenox. IV Solu-Medrol. Zinc Pepcid. Home medications resumed. Care was discussed with the patient. Questions answered. Past Medical History Past Medical History: Diabetes Mellitus, Hypertension, Neurologic Disorder Additional Past Medical History / Comment(s): NEUROPATHY, MIGRAINES, fractured right shoulder. CURRENTLY ON ANTIBIOTICS 12/25/19 FOR UTI-INSTRUCTED TO CALL DR. TUMMA. DEL CID UTI-WAS ADMITTED 05/28/19 FOR IV ANTIBIOTIC [place] FOR UTI WITH MDRO History of Any Multi-Drug Resistant Organisms: Other MDRO Past Surgical History: Bariatric Surgery, Bladder Surgery, Hysterectomy Additional Past Surgical History / Comment(s): ORAL SURGERY. COLONOSCOPY. LAP BAND THEN HAD BARIATRIC SURGERY;. bladder surgery may have been for a benign cyst but is not sure. 16 LBS ABD. TISSUE REMOVED Past Anesthesia/Blood Transfusion Reactions: No Reported Reaction Past Psychological History: Anxiety, Depression Smoking Status: Never smoker - Past Family History Mother Family Medical History: Diabetes Mellitus Additional Family Medical History / Comment(s): At [facility] with UTI. Father Family Medical History: CVA/TIA, Diabetes Mellitus Sister(s) Family Medical History: Deep Vein Thrombosis (DVT) Medications and Allergies Home Medications Medication Instructions Recorded Confirmed Type Oxybutynin Chloride 5 mg PO BID 05/15/18 01/28/20 History buPROPion XL [Wellbutrin XL] 150 mg PO DAILY 05/15/18 01/28/20 History Metoprolol Tartrate [Lopressor] 50 mg PO BID #60 tab 09/01/18 01/28/20 Rx Gabapentin [Neurontin] 100 mg PO BID 05/25/19 01/28/20 History Acetaminophen [Tylenol Arthritis] 650 mg PO BID PRN 01/22/20 01/28/20 History HYDROcodone/APAP 7.5-325MG [[place] 1 tab PO BID 01/22/20 01/28/20 History 7.5-325] Omeprazole 20 mg PO DAILY 01/22/20 01/28/20 History Albuterol Inhaler [Ventolin Hfa 2 puff INHALATION RT-QID #1 inhaler 01/23/20 01/28/20 Rx Inhaler] Cefuroxime Axetil [Ceftin] 500 mg PO BID 5 Days #10 tab 01/23/20 01/28/20 Rx Allergies Allergy/AdvReac Type Severity Reaction Status Date / Time meperidine [From Demerol] AdvReac Nausea & Verified 01/28/20 11:21 Vomiting Penicillins AdvReac "FALLS Verified 01/28/20 11:21 ALOT" Sulfa (Sulfonamide AdvReac Nausea & Verified 01/28/20 11:21 Antibiotics) Vomiting Physical Exam Vitals: Vital Signs Temp Pulse Resp BP Pulse Ox 01/28/20 14:39 70 18 146/65 97 01/28/20 11:10 97 01/28/20 10:56 98.4 F 72 18 141/64 92 L Intake and Output 01/27/20 01/28/20 01/28/20 22:59 06:59 14:59 Other: Weight 81.647 kg Results CBC & Chem 7: 01/28/20 11:21 01/28/20 11:21 Labs: Abnormal Lab Results - Last 24 Hours (Table) 01/28/20 01/28/20 01/28/20 Range/Units 11:21 11:21 11:21 Hgb 11.3 L (11.4-16.0) gm/dL MCHC 30.3 L (31.0-37.0) g/dL RDW 16.2 H (11.5-15.5) % Lymphocytes # 0.8 L (1.0-4.8) k/uL APTT 18.0 L (22.0-30.0) sec D-Dimer 0.85 H (<0.60) mg/L FEU Sodium 133 L (137-145) mmol/L BUN 18 H (7-17) mg/dL Creatinine 1.21 H (0.52-1.04) mg/dL Glucose 115 H (74-99) mg/dL Lactate Dehydrogenase 889 H (313-618) U/L C-Reactive Protein 85.8 H (<10.0) mg/L
[2020-01-28] MEDS: ZINC SULFATE 220 MG CAP PO SCH (15:53)
[2020-01-28] MEDS: METOPROLOL TARTRATE 50 MG TAB PO SCH ×2 (15:53→21:28)
[2020-01-28] MEDS: GABAPENTIN 100 MG CAP PO SCH ×2 (15:53→21:32)
[2020-01-28] MEDS: methylPREDNISolone SOD SUCCI 40 MG/ML 1 ML VIAL IV SCH ×2 (18:30→23:54)
[2020-01-28 18:57] LABS: Ferritin 53.9 ng/mL (10.0-291.0)
[2020-01-28 20:33] LABS: Glucose,Whole Blood 142 mg/dL (75-99)
[2020-01-28] MEDS: OXYBUTYNIN CHLORIDE 5 MG TAB PO SCH (21:28)
[2020-01-28] MEDS: ENOXAPARIN 80 MG/0.8 ML SYRINGE SQ SCH (21:28)
[2020-01-28] MEDS: HYDROcodone/APAP 7.5-325MG 1 EACH TAB PO SCH (21:28)
[2020-01-28] MEDS: FAMOTIDINE 20 MG TAB PO SCH (21:28)
[2020-01-29 06:23] LABS: Glucose,Whole Blood 245 mg/dL (75-99)
[2020-01-29] MEDS: INSULIN ASPART (NovoLOG) 100 UNIT/ML VIAL SQ SCH ×4 (06:41→20:18)
[2020-01-29] MEDS ORDERED: PANTOPRAZOLE 40 MG TABLET PO SCH (07:30)
[2020-01-29] MEDS: methylPREDNISolone SOD SUCCI 40 MG/ML 1 ML VIAL IV SCH ×3 (09:41→23:22)
[2020-01-29] MEDS: METOPROLOL TARTRATE 50 MG TAB PO SCH ×2 (09:42→20:18)
[2020-01-29] MEDS: ENOXAPARIN 80 MG/0.8 ML SYRINGE SQ SCH ×2 (09:42→20:18)
[2020-01-29] MEDS: buPROPion XL 150 MG TAB.ER.24H PO SCH (09:43)
[2020-01-29] MEDS: HYDROcodone/APAP 7.5-325MG 1 EACH TAB PO SCH ×2 (09:43→20:18)
[2020-01-29] MEDS: OXYBUTYNIN CHLORIDE 5 MG TAB PO SCH ×2 (09:43→20:18)
[2020-01-29] MEDS: GABAPENTIN 100 MG CAP PO SCH ×2 (09:44→20:18)
[2020-01-29] MEDS: FAMOTIDINE 20 MG TAB PO SCH (09:48)
[2020-01-29 11:04] LABS: T4, Free (Free Thyroxine) 1.8 ng/dL (0.78-2.19)
--- NOTE | 2020-01-29 11:19 | P.CRDCN ---
History of Present Illness Consult date: 01/29/20 History of present illness: CHIEF COMPLAINT: new-onset atrial flutter HISTORY OF PRESENT ILLNESS: This is a 69-year old female with a past medical history significant for hypertension, nonischemic cardiomyopathy with a previous ejection fraction of 45%, diabetes mellitus, neuropathy, chronic kidney disease, and migraines. Patient follows in the office with Dr. Orozco. We have been asked to see the patient in consultation for new-onset atrial flutter. Patient examined this morning's bedside. She states her and her were diagnosed with chronic virus on January 21. She lives in assisted living with her . She states her came to the hospital for shortness of breath. She states she had no one to care for her so she came to the hospital as well. She states she was having some shortness of breath before coming to the hospital but reports it has resolved at the time of examination. She denies chest pain or pressure. Patient underwent a cardiac cath in 2018 revealing normal coronary arteries. DIAGNOSTICS: EKG reveals sinus rhythm Chest xray diffuse bilateral patchy infiltrates. Correlate for pneumonia. Laboratory data: W BC 8.2. Hemoglobin 11.3. platelet count 217. D-dimer 0.85. Sodium 133. Potassium 4.5. BUN 18. Creatinine 1.21. troponin negative 1. Pro-calcitonin 0.15. C-reactive protein 85.8. Current home cardiac medications include metoprolol 50 mg BID REVIEW OF SYSTEMS: At the time of my exam: CONSTITUTIONAL: Denies fever or chills. HEENT: Denies blurred vision, vision changes, or eye pain. Denies hemoptysis CARDIOVASCULAR: Denies chest pain, orthopnea, PND or palpitations RESPIRATORY: No shortness of breath. GASTROINTESTINAL: Denies abdominal pain. Denies nausea or vomiting. HEMATOLOGIC: Denies bleeding disorders. GENITOURINARY: Denies any blood in urine. SKIN: Denies pruitis. Denies rash. PHYSICAL EXAM: VITAL SIGNS: Reviewed. GENERAL: Well-developed in no acute distress. HEENT: Head is normocephalic. Pupils are equal, round. Sclerae anicteric. Mucous membranes of the mouth are moist. Neck supple. No JVD or thyromegaly LUNGS: Respirations even and unlabored. Lungs diminished. HEART: Regular rate and rhythm. S1 and S2 heard. ABDOMEN: Soft. Nondistended. Nontender. EXTREMITIES: Normal range of motion. No clubbing or cyanosis. Peripheral pulses intact. No lower extremity edema NEUROLOGIC: Awake and alert. Oriented x 3. ASSESSMENT: Acute bilateral pneumonia secondary to Covid 19 Atrial flutter, ruled out Hypertension Chronic kidney disease Diabetes mellitus, type II History of nonischemic cardiomyopathy with previous ejection fraction of 45% PLAN: Obtain 2-D echo to assess cardiac structure and function Continue current dose of metoprolol Continue telemetry monitoring Dr. Bermudez reviewed EKG and telemetry monitoring. Aflutter ruled out. No need for anticoagulation. Further recommendations pending patient course. Nurse practitioner note has been reviewed by physician. Signing provider agrees with the documented findings, assessment, and plan of care. Past Medical History Past Medical History: Diabetes Mellitus, Hypertension, Neurologic Disorder Additional Past Medical History / Comment(s): NEUROPATHY, MIGRAINES, fractured right shoulder. CURRENTLY ON ANTIBIOTICS 12/25/19 FOR UTI-INSTRUCTED TO CALL DR. TUMMA. MOE. UTI-WAS ADMITTED 05/28/19 FOR IV ANTIBIOTIC TX FOR UTI WITH MDRO History of Any Multi-Drug Resistant Organisms: Other MDRO Past Surgical History: Bariatric Surgery, Bladder Surgery, Hysterectomy Additional Past Surgical History / Comment(s): ORAL SURGERY. COLONOSCOPY. LAP BAND THEN HAD BARIATRIC SURGERY;. bladder surgery may have been for a benign cyst but is not sure. 16 LBS ABD. TISSUE REMOVED Past Anesthesia/Blood Transfusion Reactions: No Reported Reaction Smoking Status: Never smoker - Past Family History Mother Family Medical History: Diabetes Mellitus Additional Family Medical History / Comment(s): At [facility] with UTI. Father Family Medical History: CVA/TIA, Diabetes Mellitus Sister(s) Family Medical History: Deep Vein Thrombosis (DVT) Medications and Allergies Home Medications Medication Instructions Recorded Confirmed Type Oxybutynin Chloride 5 mg PO BID 05/15/18 01/28/20 History buPROPion XL [Wellbutrin XL] 150 mg PO DAILY 05/15/18 01/28/20 History Metoprolol Tartrate [Lopressor] 50 mg PO BID #60 tab 09/01/18 01/28/20 Rx Gabapentin [Neurontin] 100 mg PO BID 05/25/19 01/28/20 History Acetaminophen [Tylenol Arthritis] 650 mg PO BID PRN 01/22/20 01/28/20 History HYDROcodone/APAP 7.5-325MG [Oden 1 tab PO BID 01/22/20 01/28/20 History 7.5-325] Omeprazole 20 mg PO DAILY 01/22/20 01/28/20 History Albuterol Inhaler [Ventolin Hfa 2 puff INHALATION RT-QID #1 inhaler 01/23/20 01/28/20 Rx Inhaler] Cefuroxime Axetil [Ceftin] 500 mg PO BID 5 Days #10 tab 01/23/20 01/28/20 Rx Allergies Allergy/AdvReac Type Severity Reaction Status Date / Time meperidine [From Demerol] AdvReac Nausea & Verified 01/28/20 11:21 Vomiting Penicillins AdvReac "FALLS Verified 01/28/20 11:21 ALOT" Sulfa (Sulfonamide AdvReac Nausea & Verified 01/28/20 11:21 Antibiotics) Vomiting Physical Exam Vitals: Vital Signs Temp Pulse Pulse Resp BP BP Pulse Ox 01/29/20 04:00 97.8 F 51 L 20 121/58 97 01/29/20 00:00 98.5 F 58 L 20 122/59 94 L 01/28/20 20:00 98.7 F 65 22 126/56 98 01/28/20 18:25 98.4 F 74 18 142/70 97 01/28/20 14:39 70 18 146/65 97 01/28/20 11:10 97 01/28/20 10:56 98.4 F 72 18 141/64 92 L Intake and Output 01/28/20 01/29/20 01/29/20 22:59 06:59 14:59 Intake Total 240 240 120 Balance 240 240 120 Intake: Oral 240 240 120 Other: # Voids 1 2 1 # Bowel Movements 0 Weight 81.647 kg 94.5 kg Results 01/28/20 11:21 01/28/20 11:21 Cardiac Enzymes 01/28/20 01/28/20 Range/Units 11:21 12:30 AST 26 (14-36) U/L Lactate Dehydrogenase 889 H (313-618) U/L Troponin I <0.012 (0.000-0.034) ng/mL Coagulation 01/28/20 Range/Units 11:21 PT 9.6 (9.0-12.0) sec APTT 18.0 L (22.0-30.0) sec CBC 01/28/20 Range/Units 11:21 WBC 8.2 (3.8-10.6) k/uL RBC 4.24 (3.80-5.40) m/uL Hgb 11.3 L (11.4-16.0) gm/dL Hct 37.3 (34.0-46.0) % Plt Count 217 (150-450) k/uL Comprehensive Metabolic Panel 01/28/20 Range/Units 11:21 Sodium 133 L (137-145) mmol/L Potassium 4.5 (3.5-5.1) mmol/L Chloride 104 (98-107) mmol/L Carbon Dioxide 22 (22-30) mmol/L BUN 18 H (7-17) mg/dL Creatinine 1.21 H (0.52-1.04) mg/dL Glucose 115 H (74-99) mg/dL Calcium 8.5 (8.4-10.2) mg/dL AST 26 (14-36) U/L ALT 11 (4-34) U/L Alkaline Phosphatase 112 (38-126) U/L Total Protein 6.3 (6.3-8.2) g/dL Albumin 3.5 (3.5-5.0) g/dL Current Medications Generic Name Dose Route Start Last Admin Trade Name Freq PRN Reason Stop Dose Admin Acetaminophen 650 mg 01/28/20 13:44 Acetaminophen Tab 325 Mg Tab PO BID PRN Pain Hydrocodone Bitart/Acetaminophen 1 each 01/28/20 21:00 01/29/20 09:43 Hydrocodone/Apap 7.5-325mg 1 Each Tab PO 1 each BID ALBERTO Administration Bupropion HCl 150 mg 01/29/20 09:00 01/29/20 09:43 Bupropion Xl 150 Mg Tab.Er.24h PO 150 mg DAILY ALBERTO Administration Enoxaparin Sodium 80 mg 01/28/20 22:00 01/29/20 09:42 Enoxaparin 80 Mg/0.8 Ml Syringe SQ 80 mg Q12HR ALBERTO Administration Famotidine 20 mg 01/28/20 21:00 01/29/20 09:48 Famotidine 20 Mg Tab PO 20 mg BID ALBERTO Administration Gabapentin 100 mg 01/28/20 13:45 01/29/20 09:44 Gabapentin 100 Mg Cap PO 100 mg BID ALBERTO Administration Insulin Aspart 0 unit 01/29/20 07:30 01/29/20 06:41 Insulin Aspart (Novolog) 100 Unit/Ml Vial SQ 3 unit ACHS ALBERTO Administration Protocol Methylprednisolone Sodium Succinate 40 mg 01/28/20 16:00 01/29/20 09:41 Methylprednisolone Sod Succi 40 Mg/Ml 1 Ml Vial IV 40 mg Q8HR ALBERTO Administration Metoprolol Tartrate 50 mg 01/28/20 13:45 01/29/20 09:42 Metoprolol Tartrate 50 Mg Tab PO 50 mg BID ALBERTO Administration Naloxone HCl 0.2 mg 01/28/20 12:33 Naloxone 0.4 Mg/Ml 1 Ml Vial IV Q2M PRN Opioid Reversal Oxybutynin Chloride 5 mg 01/28/20 21:00 01/29/20 09:43 Oxybutynin Chloride 5 Mg Tab PO 5 mg BID ALBERTO Administration Zinc Sulfate 220 mg 01/28/20 15:15 01/28/20 15:53 Zinc Sulfate 220 Mg Cap PO 220 mg DAILY ALBERTO Administration Intake and Output 01/28/20 01/29/20 01/29/20 22:59 06:59 14:59 Intake Total 240 240 120 Balance 240 240 120 Intake: Oral 240 240 120 Other: # Voids 1 2 1 # Bowel Movements 0 Weight 81.647 kg 94.5 kg 01/28/20 11:21 01/28/20 11:21
--- NOTE | 2020-01-29 11:45 | ECHOF ---
Referral Reason:new aflutter, LV function MEASUREMENTS -------- HEIGHT: 157.5 cm WEIGHT: 94.3 kg BP: 121/58 RVIDd: 3.0 cm (< 3.3) IVSd: 1.2 cm (0.6 - 1.1) LVIDd: 4.4 cm (3.9 - 5.3) LVPWd: 1.1 cm (0.6 - 1.1) IVSs: 1.6 cm LVIDs: 2.8 cm LVPWs: 1.8 cm LA Diam: 3.2 cm (2.7 - 3.8) Ao Diam: 3.0 cm (2.0 - 3.7) AV Cusp: 2.1 cm (1.5 - 2.6) MV EXCURSION: 15.676 mm (> 18.000) MV EF SLOPE: 32 mm/s (70 - 150) EPSS: 0.8 cm MV E Lei: 0.61 m/s MV DecT: 326 ms MV A Lei: 1.05 m/s MV E/A Ratio: 0.58 RAP: 5.00 mmHg RVSP: 40.76 mmHg FINDINGS -------- Sinus rhythm. This was a technically difficult study with suboptimal apical views. The left ventricular size is normal. There is borderline concentric left ventricular hypertrophy. Overall left ventricular systolic function is normal with, an EF between 60 - 65 %. The right ventricle is normal in size. The left atrial size is normal. The right atrium is normal in size. 5.0mg of Lumason was utilized for enhancement of images Interatrial and interventricular septum intact. There is mild aortic valve sclerosis. The mitral valve is normal. Mild tricuspid regurgitation present. There is mild pulmonary hypertension. The right ventricular systolic pressure, as measured by Doppler, is 40.76mmHg. Trace/mild (physiologic) pulmonic regurgitation. The aortic root size is normal. IVC Not well visulized. There is no pericardial effusion. CONCLUSIONS -------- 1. The left ventricular size is normal. 2. There is borderline concentric left ventricular hypertrophy. 3. Overall left ventricular systolic function is normal with, an EF between 60 - 65 %. 4. 5.0mg of Lumason was utilized for enhancement of images 5. Mild tricuspid regurgitation present. 6. There is mild pulmonary hypertension. 7. The right ventricular systolic pressure, as measured by Doppler, is 40.76mmHg. 8. Trace/mild (physiologic) pulmonic regurgitation. 9. There is no pericardial effusion. EMERGENCY SERVICES DISPATCHER: RAJANI Galvan
[2020-01-29 12:06] LABS: Glucose,Whole Blood 193 mg/dL (75-99)
[2020-01-29] MEDS: ZINC SULFATE 220 MG CAP PO SCH (12:09)
[2020-01-29 16:34] LABS: Glucose,Whole Blood 201 mg/dL (75-99)
[2020-01-29 17:25] LABS: Hemoglobin A1C 6.6 % (4.0-6.0)
[2020-01-29 20:13] LABS: Glucose,Whole Blood 217 mg/dL (75-99)
--- NOTE | 2020-01-29 20:17 | P.PN ---
Progress Note - Text Progress Note Date: 01/29/20 Chief Complaint: short of breath History of presenting complaint: This is a very pleasant [address] Navas. Chronic stable medical conditions include diabetes, hypertension, depression and anxiety, bilateral kidney stones, COPD stage III. patient is a resident of [facility] on [address]. Does use a walker.both her and herself tested positive for COVID on January 21. She has become more short of breath progressively. Has a slight cough. No headache. Having a lot of chills. No fever. Appetite is okay. Does feel weak and tired. No diarrhea.patient was just discharged from the hospital on January 22. Patient had tested positive for COVID 19 PCR on January 21.patient was discharged home on the dose of dexamethasone for 6 days. Admitted with bilateral pneumonia from COVID 19. What was initially felt to be atrial flutter is actually motion artifact. Patient on IV Solu-Medrol and Lovenox. Today-breathing is a bit better. Less wheezing. Oral intake improving. Review of systems: Was done for constitutional, cardiovascular, GI, pulmonary. relevant finding as above Active Medications Acetaminophen (Acetaminophen Tab 325 Mg Tab) 650 mg PO BID PRN PRN Reason: Pain Last Admin: 01/29/20 16:08 Dose: 650 mg Documented by: Hydrocodone Bitart/Acetaminophen (Hydrocodone/Apap 7.5-325mg 1 Each Tab) 1 each PO BID [facility] Last Admin: 01/29/20 09:43 Dose: 1 each Documented by: Bupropion HCl (Bupropion Xl 150 Mg Tab.Er.24h) 150 mg PO DAILY [facility] Last Admin: 01/29/20 09:43 Dose: 150 mg Documented by: Enoxaparin Sodium (Enoxaparin 80 Mg/0.8 Ml Syringe) 80 mg SQ Q12HR [facility] Last Admin: 01/29/20 09:42 Dose: 80 mg Documented by: Famotidine (Famotidine 20 Mg Tab) 20 mg PO DAILY [facility] Gabapentin (Gabapentin 100 Mg Cap) 100 mg PO BID [facility] Last Admin: 01/29/20 09:44 Dose: 100 mg Documented by: Insulin Aspart (Insulin Aspart (Novolog) 100 Unit/Ml Vial) 0 unit SQ ACHS [facility]; Protocol Last Admin: 01/29/20 16:33 Dose: 2 unit Documented by: Methylprednisolone Sodium Succinate (Methylprednisolone Sod Succi 40 Mg/Ml 1 Ml Vial) 40 mg IV Q8HR [facility] Last Admin: 01/29/20 16:08 Dose: 40 mg Documented by: Metoprolol Tartrate (Metoprolol Tartrate 50 Mg Tab) 50 mg PO BID [facility] Last Admin: 01/29/20 09:42 Dose: 50 mg Documented by: Naloxone HCl (Naloxone 0.4 Mg/Ml 1 Ml Vial) 0.2 mg IV Q2M PRN PRN Reason: Opioid Reversal Oxybutynin Chloride (Oxybutynin Chloride 5 Mg Tab) 5 mg PO BID [facility] Last Admin: 01/29/20 09:43 Dose: 5 mg Documented by: Zinc Sulfate (Zinc Sulfate 220 Mg Cap) 220 mg PO DAILY [facility] Last Admin: 01/29/20 12:09 Dose: 220 mg Documented by: Physical examination: VITAL SIGNS: 98, 69, 16, 136/65, 93% on room air GENERAL: Laying in bed, a bit more restful PSYCH: Alert and oriented x3; mood and affect anxious MUSCULAR skeletal: Evidence of OA Additional physical exam as per nursing and cardiology INVESTIGATIONS, reviewed in the clinical context: Accu-Cheks 193, 201, HbA1c 6.6 Previous testing white count 8.2 hemoglobin 11.3 platelets 217 d-dimer 0.85 potassium 4.5 bun 18 creatinine 1.21 LDH 889 troponin I less than 0.012 CRP 85.8 EKG tracing personally reviewed by me-sinus rhythm with motion artifact Chest x-ray film personally reviewed by me-Bilateral infiltrates patient tested positive for COVID -January 21. 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 Plan: Continue Lovenox. IV Solu-Medrol. Zinc Pepcid. Care was discussed with the patient. Follow CRP, d-dimer
[2020-01-30 04:34] VITALS: RESP 18
[2020-01-30 06:31] LABS: Glucose,Whole Blood 278 mg/dL (75-99)
[2020-01-30] MEDS: INSULIN ASPART (NovoLOG) 100 UNIT/ML VIAL SQ SCH ×2 (06:40→12:40)
[2020-01-30 08:51] LABS: Calcium 8.4 mg/dL (8.4-10.2); Potassium 4.3 mmol/L (3.5-5.1)
[2020-01-30] MEDS ORDERED: FAMOTIDINE 20 MG TAB PO SCH (09:00)
[2020-01-30] MEDS: HYDROcodone/APAP 7.5-325MG 1 EACH TAB PO SCH (09:16)
[2020-01-30] MEDS: OXYBUTYNIN CHLORIDE 5 MG TAB PO SCH (09:16)
[2020-01-30] MEDS: GABAPENTIN 100 MG CAP PO SCH (09:16)
[2020-01-30] MEDS: buPROPion XL 150 MG TAB.ER.24H PO SCH (09:16)
[2020-01-30] MEDS: METOPROLOL TARTRATE 50 MG TAB PO SCH (09:16)
[2020-01-30] MEDS: ZINC SULFATE 220 MG CAP PO SCH (09:16)
[2020-01-30] MEDS: ENOXAPARIN 80 MG/0.8 ML SYRINGE SQ SCH (09:17)
[2020-01-30] MEDS: methylPREDNISolone SOD SUCCI 40 MG/ML 1 ML VIAL IV SCH (09:17)
[2020-01-30 10:12] LABS: C Reactive Protein 33.5 mg/L (<10.0)
--- NOTE | 2020-01-30 10:30 | P.PN ---
Subjective This is a pleasant 69-year-old female past medical history significant for hypertension, nonischemic cardiomyopathy with previous ejection fraction of 45%, diabetes mellitus, chronic kidney disease and is currently being treated for COVID-19. She follows in the office with Dr. Orozco. She is seen resting comfortably in bed laying flat in no acute distress. She states she is feeling cold this morning. She has been afebrile. Blood pressure 109/59 heart rate 61 and maintaining oxygen saturation on nasal cannula. Echocardiogram obtained reveals preserved LV systolic function with ejection fraction 60-65%, mild tricuspid regurgitation and mild pulmonary hypertension with an RVSP of 40 mmHg. Currently maintained on Toprol 50 mg twice a day. She denies symptoms of chest pain, shortness of breath, dizziness or palpitations. Laboratory data reviewed, d-dimer 0.21, sodium 133, potassium 4.3, creatinine 1.25 and C-reactive protein 33.5. ASSESSMENT Acute bilateral pneumonia secondary to Covid 19 Hypertension Chronic kidney disease Diabetes mellitus PLAN Stable from a cardiac perspective. Telemetry tracings reviewed and there is no significant arrhythmias noted. We will follow along as needed, please feel free to call with further questions or concerns. Follow-up with Dr. Orozco upon discharge. Nurse Practitioner note has been reviewed, I agree with a documented findings and plan of care. Patient was seen and examined. Objective - Vital Signs Vital signs: Vital Signs Temp 98 F 01/30/20 04:00 Pulse 61 01/30/20 04:00 Resp 18 01/30/20 04:00 BP 109/53 01/30/20 04:00 Pulse Ox 93 L 01/30/20 04:00 Intake & Output 01/29/20 01/30/20 01/30/20 18:59 06:59 18:59 Intake Total 320 540 Balance 320 540 Weight 97.3 kg Intake: Oral 320 540 Other: # Voids 3 1 # Bowel Movements 0 - Labs CBC & Chem 7: 01/28/20 11:21 01/30/20 07:28 Labs: Abnormal Lab Results - Last 24 Hours (Table) 01/29/20 01/29/20 01/29/20 Range/Units 08:34 12:03 16:32 Sodium (137-145) mmol/L BUN (7-17) mg/dL Creatinine (0.52-1.04) mg/dL Glucose (74-99) mg/dL POC Glucose (mg/dL) 193 H 201 H (75-99) mg/dL Hemoglobin A1c 6.6 H (4.0-6.0) % C-Reactive Protein (<10.0) mg/L 01/29/20 01/30/20 01/30/20 Range/Units 20:09 06:27 07:28 Sodium 133 L (137-145) mmol/L BUN 27 H (7-17) mg/dL Creatinine 1.25 H (0.52-1.04) mg/dL Glucose 246 H (74-99) mg/dL POC Glucose (mg/dL) 217 H 278 H (75-99) mg/dL Hemoglobin A1c (4.0-6.0) % C-Reactive Protein 33.5 H (<10.0) mg/L Microbiology - Last 24 Hours (Table) 01/28/20 11:58 Blood Culture - Preliminary Blood No Growth after 24 hours
[2020-01-30 11:58] LABS: Glucose,Whole Blood 209 mg/dL (75-99)
[2020-01-30 14:10] VITALS: PULSE 60
[2020-01-30 14:11] VITALS: BP 136/80; TEMP 98.2
== END 2020-01-30 17:05 | disposition home or self-care (01) | DRG 177 ==
LOC: EC 10:44 → 3SCARD 12:46
PROVIDERS: ADMIT Hospitalist; ATTEND Hospitalist
DX: U07.1 COVID-19 (principal); J12.89 Other viral pneumonia; J44.0 Chronic obstructive pulmonary disease with (acute) lower respiratory infection; I42.8 Other cardiomyopathies; I48.92 Unspecified atrial flutter; N39.0 Urinary tract infection, site not specified; M19.91 Primary osteoarthritis, unspecified site; N18.9 Chronic kidney disease, unspecified; I48.91 Unspecified atrial fibrillation; I27.20 Pulmonary hypertension, unspecified; I12.9 Hypertensive chronic kidney disease with stage 1 through stage 4 chronic kidney disease, or unspecified chronic kidney disease; E11.22 Type 2 diabetes mellitus with diabetic chronic kidney disease; E11.42 Type 2 diabetes mellitus with diabetic polyneuropathy; E11.65 Type 2 diabetes mellitus with hyperglycemia; F41.8 Other specified anxiety disorders; Z87.442 Personal history of urinary calculi; Z79.899 Other long term (current) drug therapy; Z83.3 Family history of diabetes mellitus; Z90.710 Acquired absence of both cervix and uterus; Z82.3 Family history of stroke; Z83.2 Family history of diseases of the blood and blood-forming organs and certain disorders involving the immune mechanism; R26.9 Unspecified abnormalities of gait and mobility; G43.909 Migraine, unspecified, not intractable, without status migrainosus; Z98.84 Bariatric surgery status; Z88.5 Allergy status to narcotic agent; Z88.0 Allergy status to penicillin; Z88.2 Allergy status to sulfonamides; N20.0 Calculus of kidney
CPT/HCPCS: 36415; 71045; 80048; 80053; 82728; 83036; 83605; 83615; 83735; 84145; 84439; 84443; 84484; 85025; 85379; 85610; 85730; 86140; 87040; 93005; 93306; 96360; 96361; 96372; 99285

== ENCOUNTER 2020-02-09 09:50 | Inpatient (IN) | payer MEDICARE ==
[2020-02-09] MEDS ORDERED: MORPHINE SULFATE 4 MG/ML SYRINGE IVP STA (11:09)
--- NOTE | 2020-02-09 11:17 | ED ---
Abdominal Pain HPI - General Chief Complaint: Abdominal Pain Stated Complaint: SOB Time Seen by Provider: 02/09/20 10:05 Source: patient Mode of arrival: EMS - History of Present Illness Initial Comments: Patient is a 69-year-old female with past medical history of diabetes, hype rtension who presents emergency Department reported chest pain that radiates to her back. Patient states that it started last night here he denies any provocative factors. No previous history of coronary disease. Patient was diagnosed with Covid on the of this month. She is currently on steroids and zinc. States that her breathing has been good. Patient denies aching any medications for her pain. Does admit to associated shortness of breath. Patient denies any abdominal pain. No changes in her bowel or bladder habits. Remainder of the HPI is limited as the patient is yelling in pain during my exam - Related Data Home Medications Medication Instructions Recorded Confirmed Oxybutynin Chloride 5 mg PO BID 05/15/18 02/09/20 buPROPion XL [Wellbutrin XL] 150 mg PO DAILY 05/15/18 02/09/20 Gabapentin [Neurontin] 100 mg PO BID 05/25/19 02/09/20 Acetaminophen [Tylenol Arthritis] 650 mg PO BID PRN 01/22/20 02/09/20 HYDROcodone/APAP 7.5-325MG [[place] 1 tab PO BID 01/22/20 02/09/20 7.5-325] Omeprazole 20 mg PO DAILY 01/22/20 02/09/20 predniSONE See Taper PO DIRECTED 02/09/20 02/09/20 Previous Rx's Medication Instructions Recorded Metoprolol Tartrate [Lopressor] 50 mg PO BID #60 tab 09/01/18 Albuterol Inhaler [Ventolin Hfa 2 puff INHALATION RT-QID #1 inhaler 01/23/20 Inhaler] Zinc Sulfate [Orazinc] 220 mg PO DAILY #14 cap 01/30/20 Allergies Allergy/AdvReac Type Severity Reaction Status Date / Time meperidine [From Demerol] AdvReac Nausea & Verified 02/09/20 13:28 Vomiting Penicillins AdvReac "FALLS Verified 02/09/20 13:28 ALOT" Sulfa (Sulfonamide AdvReac Nausea & Verified 02/09/20 13:28 Antibiotics) Vomiting Review of Systems ROS Statement: Those systems with pertinent positive or pertinent negative responses have been documented in the HPI. ROS Other: All systems not noted in ROS Statement are negative. Past Medical History Past Medical History: Diabetes Mellitus, Hypertension, Neurologic Disorder Additional Past Medical History / Comment(s): NEUROPATHY, MIGRAINES, fractured right shoulder. CURRENTLY ON ANTIBIOTICS 12/25/19 FOR UTI-INSTRUCTED TO CALL DR. TUMMA. DEL CID UTI-WAS ADMITTED 05/28/19 FOR IV ANTIBIOTIC TX FOR UTI WITH MDRO History of Any Multi-Drug Resistant Organisms: Other MDRO Past Surgical History: Bariatric Surgery, Bladder Surgery, Hysterectomy Additional Past Surgical History / Comment(s): ORAL SURGERY. COLONOSCOPY. LAP BAND THEN HAD BARIATRIC SURGERY;. bladder surgery may have been for a benign cyst but is not sure. 16 LBS ABD. TISSUE REMOVED Past Anesthesia/Blood Transfusion Reactions: No Reported Reaction Smoking Status: Never smoker - Past Family History Mother Family Medical History: Diabetes Mellitus Additional Family Medical History / Comment(s): At [facility] with UTI. Father Family Medical History: CVA/TIA, Diabetes Mellitus Sister(s) Family Medical History: Deep Vein Thrombosis (DVT) General Exam Limitations: physical limitation General appearance: alert, anxious, other (yelling in pain) Eye exam: Present: normal appearance, PERRL, EOMI. Absent: scleral icterus, conjunctival injection, periorbital swelling ENT exam: Present: normal exam, mucous membranes moist Respiratory exam: Present: normal lung sounds bilaterally. Absent: respiratory distress, wheezes, rales, rhonchi, stridor Cardiovascular Exam: Present: regular rate, normal rhythm, normal heart sounds. Absent: systolic murmur, diastolic murmur, rubs, gallop, clicks GI/Abdominal exam: Present: soft, tenderness (epigastric), normal bowel sounds. Absent: distended, guarding, rebound, rigid Extremities exam: Present: normal inspection, full ROM, normal capillary refill. Absent: tenderness, pedal edema, joint swelling, calf tenderness Neurological exam: Present: alert Course Vital Signs 02/09/20 02/09/20 02/09/20 10:07 12:00 12:30 Temperature Pulse Rate 84 93 89 Respiratory 18 16 16 Rate Blood Pressure 134/86 175/118 168/100 O2 Sat by Pulse 98 98 100 Oximetry 02/09/20 02/09/20 02/09/20 13:00 13:30 13:55 Temperature Pulse Rate 89 86 88 Respiratory 16 18 Rate Blood Pressure 165/105 162/107 O2 Sat by Pulse 100 100 98 Oximetry 02/09/20 02/09/20 02/09/20 14:00 14:30 14:35 Temperature 97.2 F L Pulse Rate 92 90 Respiratory 16 18 Rate Blood Pressure 163/107 160/97 O2 Sat by Pulse 100 100 Oximetry 02/09/20 02/09/20 02/09/20 15:00 15:04 15:30 Temperature Pulse Rate 98 107 H 101 H Respiratory 16 18 16 Rate Blood Pressure 157/100 155/96 155/96 O2 Sat by Pulse 100 99 98 Oximetry 02/09/20 02/09/20 02/09/20 16:00 16:30 17:00 Temperature Pulse Rate 93 99 92 Respiratory 16 16 16 Rate Blood Pressure 145/88 133/91 138/83 O2 Sat by Pulse 100 98 99 Oximetry 02/09/20 02/09/20 17:30 20:43 Temperature 98.4 F Pulse Rate 102 H 102 H Respiratory 18 18 Rate Blood Pressure 141/90 148/84 O2 Sat by Pulse 100 99 Oximetry Medical Decision Making - Medical Decision Making On arrival patient is placed into room 15. A thorough history and physical exam is performed. 12-lead EKG was performed. PIV is established and lab studies were conducted. White blood cell count 20.4. D-dimer 0.84. Troponin is negative. Patient was sent for a CT of her thoracic aorta due to her tearing c hest pain into her back. It does not demonstrate dissection or aneurysm. Low lung volumes with multifocal edema and/or infiltrates. As results the patient. Did recommend hospitalization for chest pain for patient did agree to. Discuss case with Dr. Strauss who accepted admission. Patient is currently awaiting a bed on the floor - Lab Data Result diagrams: 02/13/20 09:05 02/13/20 09:05 Lab Results 02/09/20 02/09/20 02/09/20 Range/Units 10:55 10:55 10:55 WBC 20.4 H (3.8-10.6) k/uL RBC 4.09 (3.80-5.40) m/uL Hgb 11.0 L (11.4-16.0) gm/dL Hct 36.8 (34.0-46.0) % MCV 90.0 (80.0-100.0) fL MCH 27.0 (25.0-35.0) pg MCHC 30.0 L (31.0-37.0) g/dL RDW 16.2 H (11.5-15.5) % Plt Count 300 (150-450) k/uL MPV 7.8 Neutrophils % 89 % Lymphocytes % 7 % Monocytes % 3 % Eosinophils % 0 % Basophils % 0 % Neutrophils # 18.1 H (1.3-7.7) k/uL Lymphocytes # 1.5 (1.0-4.8) k/uL Monocytes # 0.6 (0-1.0) k/uL Eosinophils # 0.0 (0-0.7) k/uL Basophils # 0.0 (0-0.2) k/uL Hypochromasia Marked Anisocytosis Slight PT 9.5 (9.0-12.0) sec INR 0.9 (<1.2) APTT 20.6 L (22.0-30.0) sec D-Dimer 0.84 H (<0.60) mg/L FEU Sodium 136 L (137-145) mmol/L Potassium 5.2 H (3.5-5.1) mmol/L Chloride 107 (98-107) mmol/L Carbon Dioxide 20 L (22-30) mmol/L Anion Gap 9 mmol/L BUN 30 H (7-17) mg/dL Creatinine 1.09 H (0.52-1.04) mg/dL Est GFR (CKD-EPI)AfAm 60 (>60 ml/min/1.73 sqM) Est GFR (CKD-EPI)NonAf 52 (>60 ml/min/1.73 sqM) Glucose 173 H (74-99) mg/dL POC Glucose (mg/dL) (75-99) mg/dL POC Glu Temp Recruiter ID Plasma Lactic Acid Christ (0.7-2.0) mmol/L Calcium 8.6 (8.4-10.2) mg/dL Magnesium 2.1 (1.6-2.3) mg/dL Ferritin 27.7 (10.0-291.0) ng/mL Total Bilirubin 0.5 (0.2-1.3) mg/dL AST 21 (14-36) U/L ALT 20 (4-34) U/L Alkaline Phosphatase 105 (38-126) U/L Lactate Dehydrogenase 731 H (313-618) U/L Troponin I (0.000-0.034) ng/mL C-Reactive Protein 32.0 H (<10.0) mg/L Total Protein 6.6 (6.3-8.2) g/dL Albumin 4.0 (3.5-5.0) g/dL Procalcitonin (0.02-0.09) ng/mL Urine Color Urine Appearance (Clear) Urine pH (5.0-8.0) Ur Specific [place] (1.001-1.035) Urine Protein (Negative) Urine Glucose (UA) (Negative) Urine Ketones (Negative) Urine Blood (Negative) Urine Nitrite (Negative) Urine Bilirubin (Negative) Urine Urobilinogen (<2.0) mg/dL Ur Leukocyte Esterase (Negative) Urine RBC (0-5) /hpf Urine WBC (0-5) /hpf Urine WBC Clumps (None) /hpf Ur Squamous Epith Cells (0-4) /hpf Urine Bacteria (None) /hpf Hyaline Casts (0-2) /lpf Urine Mucus (None) /hpf 02/09/20 02/09/20 02/09/20 Range/Units 10:55 10:55 10:55 WBC (3.8-10.6) k/uL RBC (3.80-5.40) m/uL Hgb (11.4-16.0) gm/dL Hct (34.0-46.0) % MCV (80.0-100.0) fL MCH (25.0-35.0) pg MCHC (31.0-37.0) g/dL RDW (11.5-15.5) % Plt Count (150-450) k/uL MPV Neutrophils % % Lymphocytes % % Monocytes % % Eosinophils % % Basophils % % Neutrophils # (1.3-7.7) k/uL Lymphocytes # (1.0-4.8) k/uL Monocytes # (0-1.0) k/uL Eosinophils # (0-0.7) k/uL Basophils # (0-0.2) k/uL Hypochromasia Anisocytosis PT (9.0-12.0) sec INR (<1.2) APTT (22.0-30.0) sec D-Dimer (<0.60) mg/L FEU Sodium (137-145) mmol/L Potassium (3.5-5.1) mmol/L Chloride (98-107) mmol/L Carbon Dioxide (22-30) mmol/L Anion Gap mmol/L BUN (7-17) mg/dL Creatinine (0.52-1.04) mg/dL Est GFR (CKD-EPI)AfAm (>60 ml/min/1.73 sqM) Est GFR (CKD-EPI)NonAf (>60 ml/min/1.73 sqM) Glucose (74-99) mg/dL POC Glucose (mg/dL) (75-99) mg/dL POC Glu Temp Recruiter ID Plasma Lactic Acid Christ 1.9 (0.7-2.0) mmol/L Calcium (8.4-10.2) mg/dL Magnesium (1.6-2.3) mg/dL Ferritin (10.0-291.0) ng/mL Total Bilirubin (0.2-1.3) mg/dL AST (14-36) U/L ALT (4-34) U/L Alkaline Phosphatase (38-126) U/L Lactate Dehydrogenase (313-618) U/L Troponin I <0.012 (0.000-0.034) ng/mL C-Reactive Protein (<10.0) mg/L Total Protein (6.3-8.2) g/dL Albumin (3.5-5.0) g/dL Procalcitonin 0.56 H (0.02-0.09) ng/mL Urine Color Urine Appearance (Clear) Urine pH (5.0-8.0) Ur Specific [place] (1.001-1.035) Urine Protein (Negative) Urine Glucose (UA) (Negative) Urine Ketones (Negative) Urine Blood (Negative) Urine Nitrite (Negative) Urine Bilirubin (Negative) Urine Urobilinogen (<2.0) mg/dL Ur Leukocyte Esterase (Negative) Urine RBC (0-5) /hpf Urine WBC (0-5) /hpf Urine WBC Clumps (None) /hpf Ur Squamous Epith Cells (0-4) /hpf Urine Bacteria (None) /hpf Hyaline Casts (0-2) /lpf Urine Mucus (None) /hpf 02/09/20 02/09/20 02/10/20 Range/Units 14:52 18:13 00:13 WBC (3.8-10.6) k/uL RBC (3.80-5.40) m/uL Hgb (11.4-16.0) gm/dL Hct (34.0-46.0) % MCV (80.0-100.0) fL MCH (25.0-35.0) pg MCHC (31.0-37.0) g/dL RDW (11.5-15.5) % Plt Count (150-450) k/uL MPV Neutrophils % % Lymphocytes % % Monocytes % % Eosinophils % % Basophils % % Neutrophils # (1.3-7.7) k/uL Lymphocytes # (1.0-4.8) k/uL Monocytes # (0-1.0) k/uL Eosinophils # (0-0.7) k/uL Basophils # (0-0.2) k/uL Hypochromasia Anisocytosis PT (9.0-12.0) sec INR (<1.2) APTT (22.0-30.0) sec D-Dimer (<0.60) mg/L FEU Sodium (137-145) mmol/L Potassium (3.5-5.1) mmol/L Chloride (98-107) mmol/L Carbon Dioxide (22-30) mmol/L Anion Gap mmol/L BUN (7-17) mg/dL Creatinine (0.52-1.04) mg/dL Est GFR (CKD-EPI)AfAm (>60 ml/min/1.73 sqM) Est GFR (CKD-EPI)NonAf (>60 ml/min/1.73 sqM) Glucose (74-99) mg/dL POC Glucose (mg/dL) 160 H (75-99) mg/dL POC Glu Temp Recruiter ID Jhoana Gomez Plasma Lactic Acid Christ (0.7-2.0) mmol/L Calcium (8.4-10.2) mg/dL Magnesium (1.6-2.3) mg/dL Ferritin (10.0-291.0) ng/mL Total Bilirubin (0.2-1.3) mg/dL AST (14-36) U/L ALT (4-34) U/L Alkaline Phosphatase (38-126) U/L Lactate Dehydrogenase (313-618) U/L Troponin I <0.012 <0.012 (0.000-0.034) ng/mL C-Reactive Protein (<10.0) mg/L Total Protein (6.3-8.2) g/dL Albumin (3.5-5.0) g/dL Procalcitonin (0.02-0.09) ng/mL Urine Color Urine Appearance (Clear) Urine pH (5.0-8.0) Ur Specific [place] (1.001-1.035) Urine Protein (Negative) Urine Glucose (UA) (Negative) Urine Ketones (Negative) Urine Blood (Negative) Urine Nitrite (Negative) Urine Bilirubin (Negative) Urine Urobilinogen (<2.0) mg/dL Ur Leukocyte Esterase (Negative) Urine RBC (0-5) /hpf Urine WBC (0-5) /hpf Urine WBC Clumps (None) /hpf Ur Squamous Epith Cells (0-4) /hpf Urine Bacteria (None) /hpf Hyaline Casts (0-2) /lpf Urine Mucus (None) /hpf 02/10/20 02/10/20 02/10/20 Range/Units 07:23 07:23 12:20 WBC 21.3 H (3.8-10.6) k/uL RBC 3.88 (3.80-5.40) m/uL Hgb 11.0 L (11.4-16.0) gm/dL Hct 35.7 (34.0-46.0) % MCV 92.0 (80.0-100.0) fL MCH 28.3 (25.0-35.0) pg MCHC 30.7 L (31.0-37.0) g/dL RDW 16.2 H (11.5-15.5) % Plt Count 173 (150-450) k/uL MPV 7.5 Neutrophils % 94 % Lymphocytes % 2 % Monocytes % 2 % Eosinophils % 0 % Basophils % 0 % Neutrophils # 20.1 H (1.3-7.7) k/uL Lymphocytes # 0.5 L (1.0-4.8) k/uL Monocytes # 0.5 (0-1.0) k/uL Eosinophils # 0.1 (0-0.7) k/uL Basophils # 0.1 (0-0.2) k/uL Hypochromasia Marked Anisocytosis Slight PT (9.0-12.0) sec INR (<1.2) APTT (22.0-30.0) sec D-Dimer (<0.60) mg/L FEU Sodium 135 L (137-145) mmol/L Potassium 5.7 H (3.5-5.1) mmol/L Chloride 107 (98-107) mmol/L Carbon Dioxide 21 L (22-30) mmol/L Anion Gap 7 mmol/L BUN 31 H (7-17) mg/dL Creatinine 1.26 H (0.52-1.04) mg/dL Est GFR (CKD-EPI)AfAm 50 (>60 ml/min/1.73 sqM) Est GFR (CKD-EPI)NonAf 44 (>60 ml/min/1.73 sqM) Glucose 162 H (74-99) mg/dL POC Glucose (mg/dL) (75-99) mg/dL POC Glu Temp Recruiter ID Plasma Lactic Acid Christ (0.7-2.0) mmol/L Calcium 8.4 (8.4-10.2) mg/dL Magnesium (1.6-2.3) mg/dL Ferritin (10.0-291.0) ng/mL Total Bilirubin (0.2-1.3) mg/dL AST (14-36) U/L ALT (4-34) U/L Alkaline Phosphatase (38-126) U/L Lactate Dehydrogenase (313-618) U/L Troponin I (0.000-0.034) ng/mL C-Reactive Protein (<10.0) mg/L Total Protein (6.3-8.2) g/dL Albumin (3.5-5.0) g/dL Procalcitonin (0.02-0.09) ng/mL Urine Color Yellow Urine Appearance Cloudy H (Clear) Urine pH 6.0 (5.0-8.0) Ur Specific [place] 1.028 (1.001-1.035) Urine Protein 1+ H (Negative) Urine Glucose (UA) Negative (Negative) Urine Ketones Negative (Negative) Urine Blood Small H (Negative) Urine Nitrite Positive H (Negative) Urine Bilirubin Negative (Negative) Urine Urobilinogen <2.0 (<2.0) mg/dL Ur Leukocyte Esterase Large H (Negative) Urine RBC 21 H (0-5) /hpf Urine WBC >182 H (0-5) /hpf Urine WBC Clumps Few H (None) /hpf Ur Squamous Epith Cells 4 (0-4) /hpf Urine Bacteria Many H (None) /hpf Hyaline Casts 17 H (0-2) /lpf Urine Mucus Rare H (None) /hpf - EKG Data EKG Comments: EKG demonstrates normal sinus rhythm with a ventricular rate of 83. 166. QRS 68. QTC 413. No acute ST segment elevations or depressions concerning for ischemic changes Disposition Clinical Impression: Pneumonia due to COVID-19 virus, Chest pain, Abdominal pain, Constipation, Hyperkalemia, Leukocytosis Disposition: ADMITTED IP TO THIS HOSP Condition: Stable Is patient prescribed a controlled substance at d/c from ED?: No Decision to Admit Reason: Admit from EC Decision Date: 02/09/20 Decision Time: 14:15
[2020-02-09 11:24] LABS: Calcium 8.6 mg/dL (8.4-10.2); Magnesium 2.1 mg/dL (1.6-2.3); Potassium 5.2 mmol/L (3.5-5.1); Total Bilirubin 0.5 mg/dL (0.2-1.3); Total Protein 6.6 g/dL (6.3-8.2)
--- NOTE | 2020-02-09 11:25 | XR ---
EXAMINATION TYPE: XR chest 1V portable DATE OF EXAM: 02/09/2020 COMPARISON: Chest x-ray 12 days ago HISTORY: Shortness of breath TECHNIQUE: Single AP portable frontal upright view of the chest is obtained. FINDINGS: The osseous structures remain demineralized. Old displaced fracture deformity right proxim al humerus redemonstrated. Background mild cardiomegaly with atherosclerotic aorta. Background low lo w lung volumes and chronic parenchymal changes with some increased opacity lateral right mid lung in the left mid to lower lung improved from prior. No new pleural effusion or pneumothorax seen. IMPRESSION: Low lung volumes and cardiomegaly along with chronic parenchymal changes redemonstrated. Persistent Left greater than right acute infiltrates though improved from prior.
[2020-02-09 11:29] LABS: Anisocytosis Slight; Basophils % (A) 0 %; Eosinophils % (A) 0 %; HCT 36.8 % (34.0-46.0); Hypochromasia Marked; Lymphocytes # (A) 1.5 k/uL (1.0-4.8); Lymphocytes % (A) 7 %; Mean Platelet Volume 7.8; Monocytes # (A) 0.6 k/uL (0-1.0); Monocytes % (A) 3 %; Neutrophils # (A) 18.1 k/uL (1.3-7.7); Neutrophils % (A) 89 %; Platelet Count 300 k/uL (150-450); RBC 4.09 m/uL (3.80-5.40); RDW 16.2 % (11.5-15.5); WBC 20.4 k/uL (3.8-10.6)
[2020-02-09] MEDS ORDERED: DIAZEPAM 5 MG/ML 2 ML INJ IVP STA (12:00)
[2020-02-09 12:16] LABS: INR 0.9 (<1.2); Partial Thromboplastin Time 20.6 sec (22.0-30.0); Prothrombin Time 9.5 sec (9.0-12.0)
[2020-02-09 12:19] LABS: D-Dimer 0.84 mg/L FEU (<0.60)
--- NOTE | 2020-02-09 12:56 | CT ---
EXAMINATION TYPE: CT angio thor/abd pel aorta DATE OF EXAM: 02/09/2020 COMPARISON: CT abdomen and pelvis August 07, 2018 HISTORY: Chest and abdominal pain into back. CT DLP: 2414.9 mGycm. Automated Exposure Control for Dose Reduction was Utilized. CONTRAST: CTA scan of the thorax, abdomen and pelvis is performed without oral and without and with IV Contrast , patient injected with 100 mL of Isovue 300. Three-D reconstructed images. I independent workstation and reviewed FINDINGS: VASCULAR: No suspicious hyperdense material to suggest intramural hematoma. Enlarged pulmonary arteri es without filling defect consistent with underlying pulmonary artery hypertension. No linear hypoden sity to suggest aortic dissection. Satisfactory three-vessel origin from aortic arch. No thoracic aor tic aneurysm. Patent celiac artery, SMA, and LOIS. Patent small caliber tortuous renal arteries. Iliac arteries into the femoral arteries show no significant plaque or stenosis. No aneurysm is seen. LUNGS: Multifocal areas of reticulation and increased opacity. Suboptimal as patient unable to hold b reath. Low lung volumes. Trace right pleural effusion MEDIASTINUM: There are no greater than 1 cm hilar or mediastinal lymph nodes. No pericardial effusi on is seen. Cardiomegaly. Moderate left atrial dilatation. Moderate left ventricular hypertrophy. LIVER/GB: Trace perihepatic ascites superior anterior aspect. Cholecystectomy clips. PANCREAS: Fat replaced atrophy. SPLEEN: No significant abnormality is seen. ADRENALS: No significant abnormality is seen. KIDNEYS: Cortical thinning and diminished size to both kidneys with nonobstructing calculi. No hydron ephrosis. Mildly distended bladder. BOWEL: Surgical changes epigastric region from gastric sleeve. Moderate fecal prominent colonic loops . No suspicious small bowel dilatation. High dense material in the left-sided small bowel loops. GENITAL ORGANS: Uterus surgically absent. Surgical clips in pelvis. LYMPH NODES: No greater than 1cm abdominal or pelvic lymph nodes are appreciated. OSSEOUS STRUCTURES: There is S-shaped scoliotic curvature. OTHER: No significant additional abnormality is seen. IMPRESSION: 1. No aortic aneurysm or dissection. 2. Low lung volumes with multifocal edema and/or infiltrates. Correlate clinically.
[2020-02-09] MEDS ORDERED: MAGNESIUM CITRATE 296 ML BOTTLE PO ONE (14:17)
[2020-02-09] MEDS ORDERED: LEVOFLOXACIN 750MG-D5W PMX 750 MG in DEXTROSE/WATER 1 150ML.BAG IVPB STA (14:18)
[2020-02-09] MEDS ORDERED: ASPIRIN 81 MG PO STA (14:18)
[2020-02-09] MEDS ORDERED: NALOXONE 0.4 MG/ML 1 ML VIAL IV PRN (14:19)
--- NOTE | 2020-02-09 16:43 | XR ---
EXAMINATION TYPE: XR KUB portable DATE OF EXAM: 02/09/2020 COMPARISON: NONE HISTORY: Abdominal pain TECHNIQUE: 2 views supine FINDINGS: There is no sign of intestinal obstruction or pneumoperitoneum. There is some mild gaseous distention of the bowel. There are clips from cholecystectomy. There is contrast in the urinary bladd er. There is some descent of the urinary bladder floor the could relate to a cystocele. IMPRESSION: There is probably some intestinal ileus. There is probably a cystocele.
[2020-02-09] MEDS: SODIUM CHLORIDE 0.9% 1,000 ML IV SCH (17:09)
[2020-02-09 18:40] LABS: Ferritin 27.7 ng/mL (10.0-291.0)
[2020-02-09] MEDS: HYDROmorphone 0.5 MG/0.5 ML SYRINGE IVP PRN (18:46)
[2020-02-09] MEDS: ACETAMINOPHEN TAB 325 MG TAB PO PRN (20:38)
[2020-02-09] MEDS: ENOXAPARIN 40 MG/0.4 ML SYRINGE SQ SCH (20:39)
--- NOTE | 2020-02-09 20:41 | HP ---
HISTORY AND PHYSICAL CHIEF COMPLAINTS: Abdominal pain. HISTORY OF PRESENT ILLNESS: In this 69-year-old gentleman with a past medical history of multiple medical problems including diabetes, hypertension, history of neurologic disorder, history of neuropathy, migraine, history of bariatric surgery, bladder surgery, anxiety and depression is being followed by Dr. Navas in the outpatient setting. He was admitted with COVID-19 pneumonia. The patient was admitted, treated with steroids and zinc and apparently the patient was sent home. Currently the patient complains of severe abdominal pain which started in the front of the abdomen, radiating to the back and the patient also has abdominal distention also. The patient is also rather constipated and the patient has recently had COVID-19 pneumonia as well. Because of concerns, patient came to [facility] and admitted for further evaluation and treatment. There is no history of any headache, loss of consciousness, seizures at this time. PAST HISTORY: Diabetes, history of hypertension, history of anxiety, depression, history of recent COVID-19. MEDICATIONS: Home medications are reviewed and include prednisone, Wellbutrin XL, oxybutynin, omeprazole, metoprolol, hydrocodone, albuterol, Tylenol Arthritis. ALLERGIES: MEPERIDINE, PENICILLIN AND SULFA. FAMILY HISTORY: Diabetes mellitus. SOCIAL HISTORY: No history of smoking. No history of alcohol. REVIEW OF SYSTEMS: ENT: No diminished vision or hearing. CARDIOVASCULAR: No angina. RESPIRATORY: As mentioned earlier. GI: As mentioned earlier. : No dysuria. NERVOUS SYSTEM: No numbness or weakness. ALLERGY/IMMUNOLOGY: No asthma or hayfever. MUSCULOSKELETAL: As mentioned earlier. HEMATOLOGY: No history of anemia. ENDOCRINE: As mentioned earlier. CONSTITUTIONAL: As mentioned earlier. DERMATOLOGY: Negative. RHEUMATOLOGY: Negative. PSYCHIATRY: As mentioned earlier. PHYSICAL EXAMINATION: GENERAL: Patient is alert and oriented times three. VITAL SIGNS: Pulse 102, blood pressure 141/80, respirations 18, temperature normal, pulse ox 100% on 3 liters. HEENT: Conjunctivae normal. Oral mucosa moist. NECK: No jugular venous distention. No carotid bruits. No lymph node enlargement. RESPIRATORY: Breath sounds diminished at the bases. No rhonchi, no crackles. HEART: S1 and S2, muffled. ABDOMEN: Soft, obese, mild diffuse tenderness. EXTREMITIES: No edema, no swelling. NERVOUS: No focal deficits. LABS: WBC 20.4, hemoglobin is 11. D-dimer is 0.84. Sodium 136, potassium 5.2, creatinine is 1.096 and LDH is 731. ASSESSMENT: 1. Severe abdominal pain, rule out bowel obstruction secondary to constipation. 2. COVID-19 interstitial pneumonia, bilateral. 3. Hyponatremia. 4. Hyperkalemia. 5. Increased creatinine with mild acute renal failure. 6. Increased WBC possibly secondary to steroids. 7. Anemia, normocytic anemia of chronic disease. 8. Increased LDH and CRP. 9. Diabetes mellitus type 2. 10.Hypertension. 11.History of neuropathy. 12.History of migraine. 13.History of bariatric surgery. 14.History of bladder surgery. 15.History of hysterectomy. 16.History of anxiety and depression. 17.Obesity with body mass of 33. 18.FULL CODE. RECOMMENDATIONS AND DISCUSSION: In this 69-year-old woman who presented with multiple complex medical issues, we will monitor the patient closely. Continue the current medications and continue symptomatic treatment. I would also recommend empiric antibiotics. Also Infectious Disease evaluation. Surgical evaluation to rule out the possibility of any bowel obstruction. Proton pump inhibitors. Symptomatic treatment. Prognosis extremely guarded because of multiple complex medical issues. Further recommendations to follow. COVID-19 testing will be retested. MMODL / IJN: [id number] / JESSICA
[2020-02-09] MEDS: HYDROcodone/APAP 7.5-325MG 1 EACH TAB PO SCH (23:44)
[2020-02-09] MEDS: GABAPENTIN 100 MG CAP PO SCH (23:44)
[2020-02-09] MEDS: PANTOPRAZOLE 40 MG/10 ML VIAL IVP SCH (23:44)
[2020-02-09] MEDS: METOPROLOL TARTRATE 50 MG TAB PO SCH (23:44)
[2020-02-09] MEDS: OXYBUTYNIN CHLORIDE 5 MG TAB PO SCH (23:44)
[2020-02-10 00:14] LABS: Glucose,Whole Blood 160 mg/dL (75-99)
[2020-02-10] MEDS: TEMAZEPAM 15 MG CAP PO PRN (00:48)
[2020-02-10] MEDS: ALBUTEROL HFA INHALER INHALATION SCH ×5 (01:33→21:14)
[2020-02-10] MEDS: HYDROmorphone 0.5 MG/0.5 ML SYRINGE IVP PRN (01:52)
[2020-02-10] MEDS: ALPRAZolam 0.25 MG TAB PO PRN ×2 (03:27→13:32)
[2020-02-10 07:46] LABS: Anisocytosis Slight; Basophils # (A) 0.1 k/uL (0-0.2); Basophils % (A) 0 %; Eosinophils # (A) 0.1 k/uL (0-0.7); Eosinophils % (A) 0 %; HCT 35.7 % (34.0-46.0); Hypochromasia Marked; Lymphocytes # (A) 0.5 k/uL (1.0-4.8); Lymphocytes % (A) 2 %; MCH 28.3 pg (25.0-35.0); MCHC 30.7 g/dL (31.0-37.0); Mean Platelet Volume 7.5; Monocytes # (A) 0.5 k/uL (0-1.0); Monocytes % (A) 2 %; Neutrophils # (A) 20.1 k/uL (1.3-7.7); Neutrophils % (A) 94 %; Platelet Count 173 k/uL (150-450); RBC 3.88 m/uL (3.80-5.40); RDW 16.2 % (11.5-15.5); WBC 21.3 k/uL (3.8-10.6)
[2020-02-10 07:56] LABS: Calcium 8.4 mg/dL (8.4-10.2)
[2020-02-10 08:13] LABS: Potassium 5.7 mmol/L (3.5-5.1)
[2020-02-10] MEDS: METOPROLOL TARTRATE 50 MG TAB PO SCH (09:00)
--- NOTE | 2020-02-10 09:03 | P.CRDCN ---
History of Present Illness Consult date: 02/10/20 Requesting physician: Rocio Strauss Reason for Consult (text): chest pain Chief complaint: abdominal pain, constipation History of present illness: This is a pleasant 69-year-old female patient who is here for her third admission this month. She has a history of hypertension and nonischemic car diomyopathy but most recent ejection fraction on an echo done this month came in to be 55-60%, diabetes, neuropathy, chronic kidney disease and migraines. She follows with Dr. Mcknight in the office. She apparently underwent cardiac cath in 2018 which revealed normal coronary arteries. She was initially admitted on the with COVID-19. She was subsequently readmitted on the with some shor tness of breath. She presented this admission with complaints of abdominal pain, constipation and right-sided chest pain that worsens with deep inspiration. Rest to the patient in consultation for complaints of chest discomfort. Chest x-ray showed low lung volumes and cardiomegaly along with chronic changes, persistent large greater than right acute infiltrate though improved from prior. CT angio show no evidence of aortic aneurysm or dissection as well as low lung volumes with multifocal edema and/or infiltrates. EKG shows sinus rhythm with nonspecific ST-T wave abnormalities. KUB x-ray showed probable intestinal ileus and probable cystocele. Lipitor evaluation a white count of 20,000, potassium 5.2, BUN 30, creatinine 1.09, procalcitonin 0.56 and troponins negative 3. On examination, patient continues to complain mostly of abdominal discomfort and distention. Does complain of some right-sided chest discomfort worse with deep inspiration. Past Medical History Past Medical History: Diabetes Mellitus, Hypertension, Neurologic Disorder Additional Past Medical History / Comment(s): NEUROPATHY, MIGRAINES, fractured right shoulder. CURRENTLY ON ANTIBIOTICS 12/25/19 FOR UTI-INSTRUCTED TO CALL DR. TUMMA. DEL CID UTI-WAS ADMITTED 05/28/19 FOR IV ANTIBIOTIC [place] FOR UTI WITH MDRO History of Any Multi-Drug Resistant Organisms: Other MDRO Past Surgical History: Bariatric Surgery, Bladder Surgery, Hysterectomy Additional Past Surgical History / Comment(s): ORAL SURGERY. COLONOSCOPY. LAP BAND THEN HAD BARIATRIC SURGERY;. bladder surgery may have been for a benign cyst but is not sure. 16 LBS ABD. TISSUE REMOVED Past Anesthesia/Blood Transfusion Reactions: No Reported Reaction Past Psychological History: Anxiety, Depression Additional Psychological History / Comment(s): Isabela is support dog. [facility] [place] spouse[facility] [place]. Smoking Status: Never smoker Past Alcohol Use History: None Reported Past Drug Use History: None Reported - Past Family History Mother Family Medical History: Diabetes Mellitus Additional Family Medical History / Comment(s): At [facility] with UTI. Father Family Medical History: CVA/TIA, Diabetes Mellitus Sister(s) Family Medical History: Deep Vein Thrombosis (DVT) Medications and Allergies Home Medications Medication Instructions Recorded Confirmed Type Oxybutynin Chloride 5 mg PO BID 05/15/18 02/09/20 History buPROPion XL [Wellbutrin XL] 150 mg PO DAILY 05/15/18 02/09/20 History Metoprolol Tartrate [Lopressor] 50 mg PO BID #60 tab 09/01/18 02/09/20 Rx Gabapentin [Neurontin] 100 mg PO BID 05/25/19 02/09/20 History Acetaminophen [Tylenol Arthritis] 650 mg PO BID PRN 01/22/20 02/09/20 History HYDROcodone/APAP 7.5-325MG [[place] 1 tab PO BID 01/22/20 02/09/20 History 7.5-325] Omeprazole 20 mg PO DAILY 01/22/20 02/09/20 History Albuterol Inhaler [Ventolin Hfa 2 puff INHALATION RT-QID #1 inhaler 01/23/20 02/09/20 Rx Inhaler] Zinc Sulfate [Orazinc] 220 mg PO DAILY #14 cap 01/30/20 02/09/20 Rx predniSONE See Taper PO DIRECTED 02/09/20 02/09/20 History Allergies Allergy/AdvReac Type Severity Reaction Status Date / Time meperidine [From Demerol] AdvReac Nausea & Verified 02/09/20 13:28 Vomiting Penicillins AdvReac "FALLS Verified 02/09/20 13:28 ALOT" Sulfa (Sulfonamide AdvReac Nausea & Verified 02/09/20 13:28 Antibiotics) Vomiting Physical Exam Vitals: Vital Signs Temp Pulse Pulse Resp BP BP Pulse Ox 02/10/20 04:00 98.1 F 94 23 139/61 97 02/09/20 23:00 98.2 F 106 H 20 140/65 100 02/09/20 20:43 98.4 F 102 H 18 148/84 99 02/09/20 17:30 102 H 18 141/90 100 02/09/20 17:00 92 16 138/83 99 02/09/20 16:30 99 16 133/91 98 02/09/20 16:00 93 16 145/88 100 02/09/20 15:30 101 H 16 155/96 98 02/09/20 15:04 107 H 18 155/96 99 02/09/20 15:00 98 16 157/100 100 02/09/20 14:35 97.2 F L 02/09/20 14:30 90 18 160/97 100 02/09/20 14:00 92 16 163/107 100 02/09/20 13:55 88 18 162/107 98 02/09/20 13:30 86 16 165/105 100 02/09/20 13:00 89 100 02/09/20 12:30 89 16 168/100 100 02/09/20 12:00 93 16 175/118 98 02/09/20 10:07 84 18 134/86 98 Intake and Output 02/09/20 02/10/20 02/10/20 22:59 06:59 14:59 Other: Voiding Method Diaper Incontinent # Voids 1 Weight 81.647 kg PHYSICAL EXAMINATION: This is a 69-year-old female with complaints of pain and difficulty breathing at the time of my examination. VITAL SIGNS: Blood pressure 139/61, heart rate 94, respirations 23, temp 98.1F. Patient is 97 % on liters via nasal cannula. HEENT: Head is atraumatic, normocephalic. Pupils are equal, round. Sclerae anict saul. Conjunctivae are clear. Mucous membranes of the mouth are moist. Neck is supple. There is no elevated jugular venous pressure. No carotid bruit is heard. CHEST EXAMINATION: Limited due to patient's inability to take a deep inspiration secondary to pain. No wheezes rales or rhonchi with shallow inspiration. Respirations even and labored. HEART EXAMINATION: Heart regular, positive S1 and S2. No S3. No S4. No clicks, rubs or murmurs. ABDOMEN: Distended, somewhat firm, tenderness with palpation. Bowel sounds are heard. No organomegaly noted. EXTREMITIES: 2+ peripheral pulses with no evidence of peripheral edema and no calf tenderness noted. NEUROLOGIC EXAMINATION: Patient is awake, alert and oriented x3. Results 02/10/20 07:23 02/10/20 07:23 Cardiac Enzymes 02/09/20 02/09/20 02/09/20 Range/Units 10:55 10:55 10:55 WBC 20.4 H (3.8-10.6) k/uL RBC 4.09 (3.80-5.40) m/uL Hgb 11.0 L (11.4-16.0) gm/dL Hct 36.8 (34.0-46.0) % MCV 90.0 (80.0-100.0) fL MCH 27.0 (25.0-35.0) pg MCHC 30.0 L (31.0-37.0) g/dL RDW 16.2 H (11.5-15.5) % Plt Count 300 (150-450) k/uL MPV 7.8 Neutrophils % 89 % Lymphocytes % 7 % Monocytes % 3 % Eosinophils % 0 % Basophils % 0 % Neutrophils # 18.1 H (1.3-7.7) k/uL Lymphocytes # 1.5 (1.0-4.8) k/uL Monocytes # 0.6 (0-1.0) k/uL Eosinophils # 0.0 (0-0.7) k/uL Basophils # 0.0 (0-0.2) k/uL Hypochromasia Marked Anisocytosis Slight PT 9.5 (9.0-12.0) sec INR 0.9 (<1.2) APTT 20.6 L (22.0-30.0) sec D-Dimer 0.84 H (<0.60) mg/L FEU Sodium 136 L (137-145) mmol/L Potassium 5.2 H (3.5-5.1) mmol/L Chloride 107 (98-107) mmol/L Carbon Dioxide 20 L (22-30) mmol/L Anion Gap 9 mmol/L BUN 30 H (7-17) mg/dL Creatinine 1.09 H (0.52-1.04) mg/dL Est GFR (CKD-EPI)AfAm 60 (>60 ml/min/1.73 sqM) Est GFR (CKD-EPI)NonAf 52 (>60 ml/min/1.73 sqM) Glucose 173 H (74-99) mg/dL POC Glucose (mg/dL) (75-99) mg/dL POC Glu Cnc Supervisor ID Plasma Lactic Acid Christ (0.7-2.0) mmol/L Calcium 8.6 (8.4-10.2) mg/dL Magnesium 2.1 (1.6-2.3) mg/dL Ferritin 27.7 (10.0-291.0) ng/mL Total Bilirubin 0.5 (0.2-1.3) mg/dL AST 21 (14-36) U/L ALT 20 (4-34) U/L Alkaline Phosphatase 105 (38-126) U/L Lactate Dehydrogenase 731 H (313-618) U/L Troponin I (0.000-0.034) ng/mL C-Reactive Protein 32.0 H (<10.0) mg/L Total Protein 6.6 (6.3-8.2) g/dL Albumin 4.0 (3.5-5.0) g/dL Procalcitonin (0.02-0.09) ng/mL 02/09/20 02/09/20 02/09/20 Range/Units 10:55 10:55 10:55 WBC (3.8-10.6) k/uL RBC (3.80-5.40) m/uL Hgb (11.4-16.0) gm/dL Hct (34.0-46.0) % MCV (80.0-100.0) fL MCH (25.0-35.0) pg MCHC (31.0-37.0) g/dL RDW (11.5-15.5) % Plt Count (150-450) k/uL MPV Neutrophils % % Lymphocytes % % Monocytes % % Eosinophils % % Basophils % % Neutrophils # (1.3-7.7) k/uL Lymphocytes # (1.0-4.8) k/uL Monocytes # (0-1.0) k/uL Eosinophils # (0-0.7) k/uL Basophils # (0-0.2) k/uL Hypochromasia Anisocytosis PT (9.0-12.0) sec INR (<1.2) APTT (22.0-30.0) sec D-Dimer (<0.60) mg/L FEU Sodium (137-145) mmol/L Potassium (3.5-5.1) mmol/L Chloride (98-107) mmol/L Carbon Dioxide (22-30) mmol/L Anion Gap mmol/L BUN (7-17) mg/dL Creatinine (0.52-1.04) mg/dL Est GFR (CKD-EPI)AfAm (>60 ml/min/1.73 sqM) Est GFR (CKD-EPI)NonAf (>60 ml/min/1.73 sqM) Glucose (74-99) mg/dL POC Glucose (mg/dL) (75-99) mg/dL POC Glu Cnc Supervisor ID Plasma Lactic Acid Christ 1.9 (0.7-2.0) mmol/L Calcium (8.4-10.2) mg/dL Magnesium (1.6-2.3) mg/dL Ferritin (10.0-291.0) ng/mL Total Bilirubin (0.2-1.3) mg/dL AST (14-36) U/L ALT (4-34) U/L Alkaline Phosphatase (38-126) U/L Lactate Dehydrogenase (313-618) U/L Troponin I <0.012 (0.000-0.034) ng/mL C-Reactive Protein (<10.0) mg/L Total Protein (6.3-8.2) g/dL Albumin (3.5-5.0) g/dL Procalcitonin 0.56 H (0.02-0.09) ng/mL 02/09/20 02/09/20 02/10/20 Range/Units 14:52 18:13 00:13 WBC (3.8-10.6) k/uL RBC (3.80-5.40) m/uL Hgb (11.4-16.0) gm/dL Hct (34.0-46.0) % MCV (80.0-100.0) fL MCH (25.0-35.0) pg MCHC (31.0-37.0) g/dL RDW (11.5-15.5) % Plt Count (150-450) k/uL MPV Neutrophils % % Lymphocytes % % Monocytes % % Eosinophils % % Basophils % % Neutrophils # (1.3-7.7) k/uL Lymphocytes # (1.0-4.8) k/uL Monocytes # (0-1.0) k/uL Eosinophils # (0-0.7) k/uL Basophils # (0-0.2) k/uL Hypochromasia Anisocytosis PT (9.0-12.0) sec INR (<1.2) APTT (22.0-30.0) sec D-Dimer (<0.60) mg/L FEU Sodium (137-145) mmol/L Potassium (3.5-5.1) mmol/L Chloride (98-107) mmol/L Carbon Dioxide (22-30) mmol/L Anion Gap mmol/L BUN (7-17) mg/dL Creatinine (0.52-1.04) mg/dL Est GFR (CKD-EPI)AfAm (>60 ml/min/1.73 sqM) Est GFR (CKD-EPI)NonAf (>60 ml/min/1.73 sqM) Glucose (74-99) mg/dL POC Glucose (mg/dL) 160 H (75-99) mg/dL POC Glu Cnc Supervisor ID Jhoana Gomez Plasma Lactic Acid Christ (0.7-2.0) mmol/L Calcium (8.4-10.2) mg/dL Magnesium (1.6-2.3) mg/dL Ferritin (10.0-291.0) ng/mL Total Bilirubin (0.2-1.3) mg/dL AST (14-36) U/L ALT (4-34) U/L Alkaline Phosphatase (38-126) U/L Lactate Dehydrogenase (313-618) U/L Troponin I <0.012 <0.012 (0.000-0.034) ng/mL C-Reactive Protein (<10.0) mg/L Total Protein (6.3-8.2) g/dL Albumin (3.5-5.0) g/dL Procalcitonin (0.02-0.09) ng/mL 02/10/20 02/10/20 Range/Units 07:23 07:23 WBC 21.3 H (3.8-10.6) k/uL RBC 3.88 (3.80-5.40) m/uL Hgb 11.0 L (11.4-16.0) gm/dL Hct 35.7 (34.0-46.0) % MCV 92.0 (80.0-100.0) fL MCH 28.3 (25.0-35.0) pg MCHC 30.7 L (31.0-37.0) g/dL RDW 16.2 H (11.5-15.5) % Plt Count 173 (150-450) k/uL MPV 7.5 Neutrophils % 94 % Lymphocytes % 2 % Monocytes % 2 % Eosinophils % 0 % Basophils % 0 % Neutrophils # 20.1 H (1.3-7.7) k/uL Lymphocytes # 0.5 L (1.0-4.8) k/uL Monocytes # 0.5 (0-1.0) k/uL Eosinophils # 0.1 (0-0.7) k/uL Basophils # 0.1 (0-0.2) k/uL Hypochromasia Marked Anisocytosis Slight PT (9.0-12.0) sec INR (<1.2) APTT (22.0-30.0) sec D-Dimer (<0.60) mg/L FEU Sodium 135 L (137-145) mmol/L Potassium 5.7 H (3.5-5.1) mmol/L Chloride 107 (98-107) mmol/L Carbon Dioxide 21 L (22-30) mmol/L Anion Gap 7 mmol/L BUN 31 H (7-17) mg/dL Creatinine 1.26 H (0.52-1.04) mg/dL Est GFR (CKD-EPI)AfAm 50 (>60 ml/min/1.73 sqM) Est GFR (CKD-EPI)NonAf 44 (>60 ml/min/1.73 sqM) Glucose 162 H (74-99) mg/dL POC Glucose (mg/dL) (75-99) mg/dL POC Glu Cnc Supervisor ID Plasma Lactic Acid Christ (0.7-2.0) mmol/L Calcium 8.4 (8.4-10.2) mg/dL Magnesium (1.6-2.3) mg/dL Ferritin (10.0-291.0) ng/mL Total Bilirubin (0.2-1.3) mg/dL AST (14-36) U/L ALT (4-34) U/L Alkaline Phosphatase (38-126) U/L Lactate Dehydrogenase (313-618) U/L Troponin I (0.000-0.034) ng/mL C-Reactive Protein (<10.0) mg/L Total Protein (6.3-8.2) g/dL Albumin (3.5-5.0) g/dL Procalcitonin (0.02-0.09) ng/mL Coagulation 02/09/20 Range/Units 10:55 PT 9.5 (9.0-12.0) sec APTT 20.6 L (22.0-30.0) sec CBC 02/09/20 02/10/20 Range/Units 10:55 07:23 WBC 20.4 H 21.3 H (3.8-10.6) k/uL RBC 4.09 3.88 (3.80-5.40) m/uL Hgb 11.0 L 11.0 L (11.4-16.0) gm/dL Hct 36.8 35.7 (34.0-46.0) % Plt Count 300 173 (150-450) k/uL Comprehensive Metabolic Panel 02/09/20 02/10/20 Range/Units 10:55 07:23 Sodium 136 L 135 L (137-145) mmol/L Potassium 5.2 H 5.7 H (3.5-5.1) mmol/L Chloride 107 107 (98-107) mmol/L Carbon Dioxide 20 L 21 L (22-30) mmol/L BUN 30 H 31 H (7-17) mg/dL Creatinine 1.09 H 1.26 H (0.52-1.04) mg/dL Glucose 173 H 162 H (74-99) mg/dL Calcium 8.6 8.4 (8.4-10.2) mg/dL AST 21 (14-36) U/L ALT 20 (4-34) U/L Alkaline Phosphatase 105 (38-126) U/L Total Protein 6.6 (6.3-8.2) g/dL Albumin 4.0 (3.5-5.0) g/dL Current Medications Generic Name Dose Route Start Last Admin Trade Name Freq PRN Reason Stop Dose Admin Acetaminophen 650 mg 02/09/20 17:41 02/09/20 20:38 Acetaminophen Tab 325 Mg Tab PO 650 mg BID PRN Administration Pain Hydrocodone Bitart/Acetaminophen 1 each 02/09/20 21:00 02/09/20 23:44 Hydrocodone/Apap 7.5-325mg 1 Each Tab PO 1 each BID ALBERTO Administration Albuterol Sulfate 2 puff 02/09/20 20:00 02/10/20 01:33 Albuterol Hfa Inhaler INHALATION Not Given RT-QID ALBERTO Alprazolam 0.25 mg 02/09/20 17:43 02/10/20 03:27 Alprazolam 0.25 Mg Tab PO 0.25 mg TID PRN Administration Anxiety Bupropion HCl 150 mg 02/10/20 09:00 Bupropion Xl 150 Mg Tab.Er.24h PO DAILY PENDING SALE TO [facility] Enoxaparin Sodium 40 mg 02/09/20 19:30 02/09/20 20:39 Enoxaparin 40 Mg/0.4 Ml Syringe SQ 40 mg DAILY ALBERTO Administration Gabapentin 100 mg 02/09/20 21:00 02/09/20 23:44 Gabapentin 100 Mg Cap PO 100 mg BID PENDING SALE TO [facility] Administration Hydromorphone HCl 0.5 mg 02/09/20 15:33 02/10/20 01:52 Hydromorphone 0.5 Mg/0.5 Ml Syringe IVP 0.5 mg Q6HR PRN Administration Pain Sodium Chloride 1,000 mls @ 75 mls/hr 02/09/20 15:45 02/09/20 17:09 Saline 0.9% IV 75 mls/hr .[id number] ALBERTO Administration Levofloxacin 750 mg/ IV 150 mls @ 100 mls/hr 02/10/20 14:00 Solution IVPB Q48H PENDING SALE TO [facility] Metoprolol Tartrate 50 mg 02/09/20 21:00 02/09/20 23:44 Metoprolol Tartrate 50 Mg Tab PO 50 mg BID ALBERTO Administration Naloxone HCl 0.2 mg 02/09/20 14:19 Naloxone 0.4 Mg/Ml 1 Ml Vial IV Q2M PRN Opioid Reversal Oxybutynin Chloride 5 mg 02/09/20 21:00 02/09/20 23:44 Oxybutynin Chloride 5 Mg Tab PO 5 mg BID ALBERTO Administration Pantoprazole Sodium 40 mg 02/09/20 21:00 02/09/20 23:44 Pantoprazole 40 Mg/10 Ml Vial IVP 40 mg BID ALBERTO Administration Temazepam 15 mg 02/09/20 17:43 02/10/20 00:48 Temazepam 15 Mg Cap PO 15 mg HS PRN Administration Insomnia Zinc Sulfate 220 mg 02/10/20 09:00 Zinc Sulfate 220 Mg Cap PO DAILY ALBERTO Intake and Output 02/09/20 02/10/20 02/10/20 22:59 06:59 14:59 Other: Voiding Method Diaper Incontinent # Voids 1 Weight 81.647 kg 02/10/20 07:23 02/10/20 07:23 Assessment and Plan Assessment: #1 symptoms of abdominal and chest discomfort #2 COVID-19 with pneumonia #3 probable ileus #4 history of nonischemic cardiomyopathy, most recent EF normal #5 diabetes #6 chronic kidney disease Plan: From cardiology's perspective, an acute coronary event has been ruled out. Patient's symptoms of chest discomfort atypical and likely not cardiac related. At this time will follow the patient on an as-needed basis. Please do not hesitate to contact us with questions. SHAPE HAND note has been reviewed, I agree with a documented findings and plan of care. Patient was seen and examined.
[2020-02-10] MEDS: GABAPENTIN 100 MG CAP PO SCH (09:49)
[2020-02-10] MEDS: ZINC SULFATE 220 MG CAP PO SCH (09:49)
[2020-02-10] MEDS: buPROPion XL 150 MG TAB.ER.24H PO SCH (09:49)
[2020-02-10] MEDS: OXYBUTYNIN CHLORIDE 5 MG TAB PO SCH (09:49)
[2020-02-10] MEDS: PANTOPRAZOLE 40 MG/10 ML VIAL IVP SCH (09:49)
[2020-02-10] MEDS: ENOXAPARIN 40 MG/0.4 ML SYRINGE SQ SCH (09:49)
[2020-02-10] MEDS: HYDROcodone/APAP 7.5-325MG 1 EACH TAB PO SCH (09:52)
[2020-02-10] MEDS: SODIUM CHLORIDE 0.9% 1,000 ML IV SCH (09:58)
[2020-02-10] MEDS ORDERED: SODIUM POLYSTYRENE SULFONATE 15 GM/60 ML BOTTLE PO STA (11:20)
[2020-02-10 13:29] LABS: Appearance,Urine Cloudy (Clear); Bilirubin,Urine Negative (Negative); Blood,Urine Small (Negative); Color,Urine Yellow; Glucose,Urine (UA) Negative (Negative); Ketones,Urine Negative (Negative); Leukocyte Esterase,Urine Large (Negative); Nitrite,Urine Positive (Negative); Protein,Urine 1+ (Negative); Specific Gravity,Urine 1.028 (1.001-1.035); Urobilinogen,Urine <2.0 mg/dL (<2.0)
[2020-02-10 13:30] LABS: Bacteria,Urine Many /hpf; Hyaline Casts,Urine 17 /lpf (0-2); Mucus,Urine Rare /hpf; RBC,Urine 21 /hpf (0-5); Squamous Epithelial Cell,Urine 4 /hpf (0-4); WBC,Urine >182 /hpf (0-5)
--- NOTE | 2020-02-10 13:42 | P.GSCN ---
History of Present Illness Consult date: 02/10/20 Reason for Consult: Abdominal pain History of present illness: This a 69-year-old female who was admitted to the hospital with complaints of ba ck pain and chest pain. Patient states that she had some minimal abdominal pain as well. Past Medical History Past Medical History: Diabetes Mellitus, Hypertension, Neurologic Disorder Additional Past Medical History / Comment(s): NEUROPATHY, MIGRAINES, fractured right shoulder. CURRENTLY ON ANTIBIOTICS 12/25/19 FOR UTI-INSTRUCTED TO CALL DR. TUMMA. DEL CID UTI-WAS ADMITTED 05/28/19 FOR IV ANTIBIOTIC TX FOR UTI WITH MDRO History of Any Multi-Drug Resistant Organisms: Other MDRO Past Surgical History: Bariatric Surgery, Bladder Surgery, Hysterectomy Additional Past Surgical History / Comment(s): ORAL SURGERY. COLONOSCOPY. LAP BAND THEN HAD BARIATRIC SURGERY;. bladder surgery may have been for a benign cyst but is not sure. 16 LBS ABD. TISSUE REMOVED Past Anesthesia/Blood Transfusion Reactions: No Reported Reaction Past Psychological History: Anxiety, Depression Additional Psychological History / Comment(s): Isabela is support dog. [place] [place] [facility] [place] [facility] [place] [facility] [place]. Smoking Status: Never smoker Past Alcohol Use History: None Reported Past Drug Use History: None Reported - Past Family History Mother Family Medical History: Diabetes Mellitus Additional Family Medical History / Comment(s): At [facility] with UTI. Father Family Medical History: CVA/TIA, Diabetes Mellitus Sister(s) Family Medical History: Deep Vein Thrombosis (DVT) Medications and Allergies Home Medications Medication Instructions Recorded Confirmed Type Oxybutynin Chloride 5 mg PO BID 05/15/18 02/09/20 History buPROPion XL [Wellbutrin XL] 150 mg PO DAILY 05/15/18 02/09/20 History Metoprolol Tartrate [Lopressor] 50 mg PO BID #60 tab 09/01/18 02/09/20 Rx Gabapentin [Neurontin] 100 mg PO BID 05/25/19 02/09/20 History Acetaminophen [Tylenol Arthritis] 650 mg PO BID PRN 01/22/20 02/09/20 History HYDROcodone/APAP 7.5-325MG [[place] 1 tab PO BID 01/22/20 02/09/20 History 7.5-325] Omeprazole 20 mg PO DAILY 01/22/20 02/09/20 History Albuterol Inhaler [Ventolin Hfa 2 puff INHALATION RT-QID #1 inhaler 01/23/20 02/09/20 Rx Inhaler] Zinc Sulfate [Orazinc] 220 mg PO DAILY #14 cap 01/30/20 02/09/20 Rx predniSONE See Taper PO DIRECTED 02/09/20 02/09/20 History Allergies Allergy/AdvReac Type Severity Reaction Status Date / Time meperidine [From Demerol] AdvReac Nausea & Verified 02/09/20 13:28 Vomiting Penicillins AdvReac "FALLS Verified 02/09/20 13:28 ALOT" Sulfa (Sulfonamide AdvReac Nausea & Verified 02/09/20 13:28 Antibiotics) Vomiting Surgical - Exam Vital Signs Pulse Resp BP Pulse Ox 84 18 134/86 98 02/09/20 10:07 02/09/20 10:07 02/09/20 10:07 02/09/20 10:07 - General well developed, well nourished, no distress - Eyes PERRL - ENT normal pinna - Neck no masses - Respiratory normal expansion - Cardiovascular Rhythm: regular - Abdomen Abdomen: soft, non tender Results - Labs 02/10/20 07:23 02/10/20 07:23 Abnormal Lab Results - Last 24 Hours (Table) 02/09/20 02/10/20 02/10/20 Range/Units 10:55 00:13 07:23 WBC 21.3 H (3.8-10.6) k/uL Hgb 11.0 L (11.4-16.0) gm/dL MCHC 30.7 L (31.0-37.0) g/dL RDW 16.2 H (11.5-15.5) % Neutrophils # 20.1 H (1.3-7.7) k/uL Lymphocytes # 0.5 L (1.0-4.8) k/uL Sodium (137-145) mmol/L Potassium (3.5-5.1) mmol/L Carbon Dioxide (22-30) mmol/L BUN (7-17) mg/dL Creatinine (0.52-1.04) mg/dL Glucose (74-99) mg/dL POC Glucose (mg/dL) 160 H (75-99) mg/dL Procalcitonin 0.56 H (0.02-0.09) ng/mL Urine Appearance (Clear) Urine Protein (Negative) Urine Blood (Negative) Urine Nitrite (Negative) Ur Leukocyte Esterase (Negative) Urine RBC (0-5) /hpf Urine WBC (0-5) /hpf Urine WBC Clumps (None) /hpf Urine Bacteria (None) /hpf Hyaline Casts (0-2) /lpf Urine Mucus (None) /hpf 02/10/20 02/10/20 Range/Units 07:23 12:20 WBC (3.8-10.6) k/uL Hgb (11.4-16.0) gm/dL MCHC (31.0-37.0) g/dL RDW (11.5-15.5) % Neutrophils # (1.3-7.7) k/uL Lymphocytes # (1.0-4.8) k/uL Sodium 135 L (137-145) mmol/L Potassium 5.7 H (3.5-5.1) mmol/L Carbon Dioxide 21 L (22-30) mmol/L BUN 31 H (7-17) mg/dL Creatinine 1.26 H (0.52-1.04) mg/dL Glucose 162 H (74-99) mg/dL POC Glucose (mg/dL) (75-99) mg/dL Procalcitonin (0.02-0.09) ng/mL Urine Appearance Cloudy H (Clear) Urine Protein 1+ H (Negative) Urine Blood Small H (Negative) Urine Nitrite Positive H (Negative) Ur Leukocyte Esterase Large H (Negative) Urine RBC 21 H (0-5) /hpf Urine WBC >182 H (0-5) /hpf Urine WBC Clumps Few H (None) /hpf Urine Bacteria Many H (None) /hpf Hyaline Casts 17 H (0-2) /lpf Urine Mucus Rare H (None) /hpf Diabetes panel 02/10/20 Range/Units 07:23 Sodium 135 L (137-145) mmol/L Potassium 5.7 H (3.5-5.1) mmol/L Chloride 107 (98-107) mmol/L Carbon Dioxide 21 L (22-30) mmol/L BUN 31 H (7-17) mg/dL Creatinine 1.26 H (0.52-1.04) mg/dL Glucose 162 H (74-99) mg/dL Calcium 8.4 (8.4-10.2) mg/dL Calcium panel 02/10/20 Range/Units 07:23 Calcium 8.4 (8.4-10.2) mg/dL Pituitary panel 02/10/20 Range/Units 07:23 Sodium 135 L (137-145) mmol/L Potassium 5.7 H (3.5-5.1) mmol/L Chloride 107 (98-107) mmol/L Carbon Dioxide 21 L (22-30) mmol/L BUN 31 H (7-17) mg/dL Creatinine 1.26 H (0.52-1.04) mg/dL Glucose 162 H (74-99) mg/dL Calcium 8.4 (8.4-10.2) mg/dL Adrenal panel 02/10/20 Range/Units 07:23 Sodium 135 L (137-145) mmol/L Potassium 5.7 H (3.5-5.1) mmol/L Chloride 107 (98-107) mmol/L Carbon Dioxide 21 L (22-30) mmol/L BUN 31 H (7-17) mg/dL Creatinine 1.26 H (0.52-1.04) mg/dL Glucose 162 H (74-99) mg/dL Calcium 8.4 (8.4-10.2) mg/dL Assessment and Plan Assessment: Minimal abdominal pain. Unsure of chest pain and back pain etiology. No surgical intervention is planned at this point.
[2020-02-10] MEDS ORDERED: LEVOFLOXACIN 750MG-D5W PMX 750 MG in DEXTROSE/WATER 1 150ML.BAG IVPB SCH (14:00)
--- NOTE | 2020-02-10 15:35 | PN ---
PROGRESS NOTE DATE OF SERVICE: 02/10/2020 This 69-year-old woman was admitted with abdominal pain and features of partial small- bowel obstruction. The patient is complaining of severe abdominal pain. Aspiration on the right side. The patient also had recent Covid 19 pneumonia. Still patient has some shortness of breath and the patient also had hyponatremia and hyperkalemia. Today white count is elevated. Patient is als c/o bleeding and spotting. Past medical history reviewed. REVIEW OF SYSTEMS: CARDIOVASCULAR SYSTEM: No angina or palpitations. Respiration as mentioned earlier. GI as mentioned earlier. no dysuria. Nervous system: No numbness or weakness. CURRENT MEDICATIONS: Reviewed and include: Tylenol, [place], Ventolin, Xanax, Wellbutrin, Lovenox, Neurontin, Dilaudid, Levaquin, Lopressor, Narcan, Ditropan, Protonix, Restoril, oral zinc. PHYSICAL EXAM: Patient is alert, oriented x3. Pulse 95, blood pressure 150/83, respirations 22, temperature 97 degrees, pulse ox 97% on 2 L. HEENT: Conjunctivae normal. Neck: No JVD. CARDIOVASCULAR: S1, S2 muffled. Respiration: Breath sounds diminished in the bases. A few scattered rhonchi. ABDOMEN: Soft, obese. Mild diffuse tenderness present. No guarding and no rigidity. No mass palpable. Legs are no edema, no swelling. LABS: WBC 21.2, hemoglobin 11, sodium 130. Potassium 5.7, creatinine is 1.26. UA shows large leukocyte esterase and positive features of UTI. ASSESSMENT: 1. Severe abdominal pain, rule out bowel obstruction secondary to constipation. 2. Acute urinary tract infection present on admission. 3. Covid-19 interstitial pneumonia bilateral. 4. Hyponatremia. bleeding?? 5. Hyperkalemia. 6. Increased creatinine with mild acute renal failure. 7. Increased WBC possibly secondary to steroids. 8. Anemia, normocytic anemia of chronic disease. Increased LDH and CRP secondary to Covid-19. 9. Diabetes mellitus type 2. 10.Hypertension. 11.History of neuropathy. 12.History of migraines. 13.History of bariatric surgery. 14.History of bladder surgery. 15.Hysterectomy. 16.History of anxiety/depression. 17.Obesity with body mass of 33. 18.FULL CODE. RECOMMENDATIONS AND DISCUSSION: I recommend to continue current medications, management and symptomatic treatment. Otherwise I would recommend course of IV antibiotics. The patient is currently on Levaquin. We will obtain the urine culture. Infectious Disease also will be consulted for the Covid pneumonia. Surgery is also being consulted. The prognosis guarded because of multiple complex medical problems. See orders for details. Continue with the Lovenox. Further recommendations to follow. TORITO Cavanaugh/FRANCISCO spicer. MMCARMENL / IJN: [id number] / MTDD
[2020-02-10 19:17] LABS: Potassium 5.2 mmol/L (3.5-5.1)
[2020-02-11] MEDS: HYDROcodone/APAP 7.5-325MG 1 EACH TAB PO SCH ×2 (00:52→08:07)
[2020-02-11] MEDS: METOPROLOL TARTRATE 50 MG TAB PO SCH ×2 (00:53→08:06)
[2020-02-11] MEDS: GABAPENTIN 100 MG CAP PO SCH ×2 (00:53→08:06)
[2020-02-11] MEDS: OXYBUTYNIN CHLORIDE 5 MG TAB PO SCH ×2 (00:53→08:06)
[2020-02-11] MEDS: PANTOPRAZOLE 40 MG/10 ML VIAL IVP SCH (00:54)
[2020-02-11] MEDS: SODIUM CHLORIDE 0.9% 1,000 ML IV SCH (01:32)
--- NOTE | 2020-02-11 07:24 | CONS ---
CONSULTATION DATE OF SERVICE: 02/10/2020 REASON FOR CONSULTATION: COVID and UTI. HISTORY OF PRESENT ILLNESS: The patient is a 69-year-old female with past medical history significant for COPD in this patient initially diagnosed with COVID-19 on January 22, 2020 that has been treated symptomatically with steroids and zinc. The patient presented to [facility] ER yesterday morning for evaluation of chest pain. The patient describes the pain to be more in the central chest and some radiation to the back area, more of a dull aching at times sharp. Minimal shortness of breath, but denies having any cough or sputum production. No nausea, vomiting, abdominal pain, or diarrhea. Minimal burning of urine and some frequency but no suprapubic or flank pain. With these symptoms, the patient was evaluated by the ER physician. On arrival to the ER, the patient was afebrile. There was no documentation if the patient was hypoxic and she has been saturating 98% to 100% and is currently on 2 L nasal cannula. The patient did have a positive UA, cultures pending. She did have white count of 20.4. D-dimer was 0.84. CRP was 32. Liver enzymes were normal. Procalcitonin 0.56. The patient did have a chest x-ray with low lung volumes, chronic parenchymal changes, persistent left greater than right acute infiltrate, though improved from prior. The patient also had thoracic aorta CT negative for any dissection. The patient has been admitted to the hospital where the patient has been currently stable with Tylenol, Lovenox, Levaquin and zinc. Infectious Disease was consulted with concern for the COVID as well as UTI. REVIEW OF SYSTEMS: Positive points have been mentioned in HPI. Rest of the systems are negative. PAST MEDICAL HISTORY: Diabetes mellitus, hypertension, migraine headache, neuropathy, recent COVID positive. PAST SURGICAL HISTORY: Bariatric surgery, bladder surgery, hysterectomy, colonoscopy. SOCIAL HISTORY: No history of smoking, drinking or drug use. FAMILY HISTORY: Father has diabetes, CVA. ALLERGIES: Allergies to PENICILLIN, MEPERIDINE, MEDICATIONS: Medications include the patient is currently on zinc, Restoril, IV fluids, Protonix, Ditropan, Narcan, Lopressor, Levaquin, Dilaudid, Neurontin, Lovenox, Wellbutrin, Xanax, [place] and Tylenol. PHYSICAL EXAMINATION: Her blood pressure is 135/76, pulse of 81, temperature of 97. She is 98% on 2 L nasal cannula. General description is an elderly female lying in bed in no distress. No tachypnea or accessory muscle of respiration use. HEENT EXAMINATION: No pallor or scleral icterus. Oral mucous membrane is dry. NECK: Trachea central. No thyromegaly. LUNGS: Unlabored breathing, decreased breath sounds at the bases. No wheeze. HEART: S1, S2. Regular rate and rhythm. ABDOMEN: Soft, no tenderness or rigidity. EXTREMITIES: No edema of feet. SKIN EXAMINATION: No rash or mass palpable. NEUROLOGICAL: Patient is awake, alert, oriented x3. Mood and affect normal. LABS: BUN of 30, creatinine 1.09. Hemoglobin 11. White count 21.3. Admission white count did not show any lymphopenia. D-dimer is 0.84. CRP 32 with procalcitonin 0.56. Liver enzymes are normal. Urine was positive, culture pending. Chest x-ray and CT report as mentioned above. DIAGNOSTIC IMPRESSION: 1. Patient admitted to the hospital with chest pain in this patient who does not have any fever or any hypoxemia and was diagnosed with COVID almost 19 days ago and the patient did not have any significant respiratory symptoms, shortness of breath or cough and even the chest x-ray did show overall improvement, clearly not behaving as a COVID pneumonia or a nosocomial pneumonia. 2. The patient does have positive urine symptoms, possible symptomatic urinary tract infection. 3. Multiple antibiotic allergies that will limit the number of antibiotics safe to use. PLAN: 1. Levaquin to continue while waiting for the culture to finalize. 2. No need for any specific treatment for underlying positive COVID test that was more than 19 days ago and the patient is currently not symptomatic from it. 3. We will follow up on clinical condition and culture to further adjust medication if needed. Thank you for this consultation. Will follow this patient along with you. MMODL / IJN: [id number] /
[2020-02-11] MEDS: ALBUTEROL HFA INHALER INHALATION SCH ×4 (08:05→19:58)
[2020-02-11] MEDS: PANTOPRAZOLE 40 MG TABLET PO SCH (08:06)
[2020-02-11] MEDS: ENOXAPARIN 40 MG/0.4 ML SYRINGE SQ SCH (08:06)
[2020-02-11] MEDS: ZINC SULFATE 220 MG CAP PO SCH (08:06)
[2020-02-11] MEDS: buPROPion XL 150 MG TAB.ER.24H PO SCH (08:07)
--- NOTE | 2020-02-11 08:52 | P.OBCN ---
History of Present Illness Consult date: 02/11/20 Reason for consult: other (Vaginal bleeding) Chief complaint: Shortness of breath, pneumonia, coated positive History of present illness: The patient is a 69-year-old 0 who presented to the hospital with significant shortness of breath and was found to have coated positive pneumonia was admitted to observation for treatment. Last evening she began to screen some vaginal bleeding which the nurse felt was absolutely from the vagina. The patient reports she's never had this before. She is not sexually active at this time and has had no recent intercourse nor any trauma. She underwent a hysterectomy over 20 years ago for cancer though it is unclear whether it was cervical or uterine or perhaps both. She did not require any extra therapy was considered cured following hysterectomy. She has not seen a high school counselor in many years. Obstetrical history: 0 para 0 Gynecologic history: Unremarkable except as noted in history present illness. Review of Systems Review of systems is confined to history of present illness. Past Medical History Past Medical History: Diabetes Mellitus, Hypertension, Neurologic Disorder Additional Past Medical History / Comment(s): NEUROPATHY, MIGRAINES, fractured right shoulder. CURRENTLY ON ANTIBIOTICS 12/25/19 FOR UTI-INSTRUCTED TO CALL DR. TUMMA. MOE. UTI-WAS ADMITTED 05/28/19 FOR IV ANTIBIOTIC TX FOR UTI WITH MDRO History of Any Multi-Drug Resistant Organisms: Other MDRO Past Surgical History: Bariatric Surgery, Bladder Surgery, Hysterectomy Additional Past Surgical History / Comment(s): ORAL SURGERY. COLONOSCOPY. LAP BAND THEN HAD BARIATRIC SURGERY;. bladder surgery may have been for a benign cyst but is not sure. 16 LBS ABD. TISSUE REMOVED Past Anesthesia/Blood Transfusion Reactions: No Reported Reaction Past Psychological History: Anxiety, Depression Additional Psychological History / Comment(s): Isabela is support dog. Lives with spouse, live in [facility] uses an electric wheelchair for long distance. Smoking Status: Never smoker Past Alcohol Use History: None Reported Past Drug Use History: None Reported - Past Family History Mother Family Medical History: Diabetes Mellitus Additional Family Medical History / Comment(s): At [facility] with UTI. Father Family Medical History: CVA/TIA, Diabetes Mellitus Sister(s) Family Medical History: Deep Vein Thrombosis (DVT) Medications and Allergies Home Medications Medication Instructions Recorded Confirmed Type Oxybutynin Chloride 5 mg PO BID 05/15/18 02/09/20 History buPROPion XL [Wellbutrin XL] 150 mg PO DAILY 05/15/18 02/09/20 History Metoprolol Tartrate [Lopressor] 50 mg PO BID #60 tab 09/01/18 02/09/20 Rx Gabapentin [Neurontin] 100 mg PO BID 05/25/19 02/09/20 History Acetaminophen [Tylenol Arthritis] 650 mg PO BID PRN 01/22/20 02/09/20 History HYDROcodone/APAP 7.5-325MG [[place] 1 tab PO BID 01/22/20 02/09/20 History 7.5-325] Omeprazole 20 mg PO DAILY 01/22/20 02/09/20 History Albuterol Inhaler [Ventolin Hfa 2 puff INHALATION RT-QID #1 inhaler 01/23/20 02/09/20 Rx Inhaler] Zinc Sulfate [Orazinc] 220 mg PO DAILY #14 cap 01/30/20 02/09/20 Rx predniSONE See Taper PO DIRECTED 02/09/20 02/09/20 History Allergies Allergy/AdvReac Type Severity Reaction Status Date / Time meperidine [From Demerol] AdvReac Nausea & Verified 02/09/20 13:28 Vomiting Penicillins AdvReac "FALLS Verified 02/09/20 13:28 ALOT" Sulfa (Sulfonamide AdvReac Nausea & Verified 02/09/20 13:28 Antibiotics) Vomiting Exam Vital Signs Temp Pulse Resp BP Pulse Ox 02/11/20 03:00 97.3 F L 96 20 136/67 99 02/10/20 21:00 97.3 F L 99 20 136/67 99 02/10/20 15:00 97 F L 81 16 135/76 98 02/10/20 09:00 97 F L 95 22 155/83 97 Intake and Output 02/10/20 02/11/20 02/11/20 22:59 06:59 14:59 Other: Voiding Method Bedside Commode Diaper Incontinent # Voids 3 0 In general, this is a morbidly obese white female with some difficulty and laboring to breathe. Examination is confined to pelvic exam as her medical doctors are managing her other conditions. Speculum examination demonstrates no abnormalities with in the vagina. There is a small open sore at the hymeneal ring on the left side likely from scratching which is the only possible source of her bleeding from a visual perspective. Bimanual examination demonstrates an entirely normal and atrophic vagina to palpation. There are no palpable masses or higher level or anywhere else for that matter. Results Result Diagrams: 02/10/20 07:23 02/10/20 18:37 Abnormal Lab Results - Last 24 Hours (Table) 02/10/20 02/10/20 Range/Units 12:20 18:37 Sodium 136 L (137-145) mmol/L Potassium 5.2 H (3.5-5.1) mmol/L Urine Appearance Cloudy H (Clear) Urine Protein 1+ H (Negative) Urine Blood Small H (Negative) Urine Nitrite Positive H (Negative) Ur Leukocyte Esterase Large H (Negative) Urine RBC 21 H (0-5) /hpf Urine WBC >182 H (0-5) /hpf Urine WBC Clumps Few H (None) /hpf Urine Bacteria Many H (None) /hpf Hyaline Casts 17 H (0-2) /lpf Urine Mucus Rare H (None) /hpf Microbiology - Last 24 Hours (Table) 02/09/20 14:50 Blood Culture - Preliminary Blood No Growth after 24 hours Assessment and Plan (1) Vaginal bleeding Current Visit: Yes Status: Acute Code(s): N93.9 - ABNORMAL UTERINE AND VAGINAL BLEEDING, UNSPECIFIED SNOMED Code(s): 490969999 Plan: The only source is likely from an excoriated area at the opening of the vagina just outside of the hymenal ring on the left. There is no other pathology present to inspection or palpation. There are need be nothing done to address this as it will heal simply unless the there is continued scratching. I will sign off the case as there is no further intervention from a gynecologic persp ective necessary.
[2020-02-11 10:39] LABS: Anisocytosis Slight; Basophils % (A) 0 %; Eosinophils # (A) 0.2 k/uL (0-0.7); Eosinophils % (A) 1 %; HCT 34.7 % (34.0-46.0); HGB 10.1 gm/dL (11.4-16.0); Hypochromasia Marked; Lymphocytes # (A) 0.8 k/uL (1.0-4.8); Lymphocytes % (A) 4 %; MCH 26.7 pg (25.0-35.0); MCHC 29.2 g/dL (31.0-37.0); MCV 91.5 fL (80.0-100.0); Mean Platelet Volume 8.4; Monocytes # (A) 0.7 k/uL (0-1.0); Monocytes % (A) 4 %; Neutrophils # (A) 17.8 k/uL (1.3-7.7); Neutrophils % (A) 91 %; Platelet Count 212 k/uL (150-450); RBC 3.79 m/uL (3.80-5.40); RDW 16.1 % (11.5-15.5); WBC 19.5 k/uL (3.8-10.6)
--- NOTE | 2020-02-11 10:49 | P.PN ---
Subjective Progress Note Date: 02/11/20 CHIEF COMPLAINT: Abdominal pain HISTORY OF PRESENT ILLNESS: Patient seen and examined with Dr. Mckinney. Patient presented to the hospital complaints of back pain and chest pain. She had reported minimal abdominal pain as well. Today she complains of no abdominal pain. She was seen by [facility]ATE INS[employer]OR service regarding vaginal bleeding. Afebrile. WBC 21.3. Patient had diagnosed with Covid 19 days ago. She's also been treated for possible UTI. PHYSICAL EXAM: VITAL SIGNS: Reviewed. GENERAL: Well-developed in no acute distress. HEENT: No sclera icterus. Extraocular movements grossly intact. Moist buccal mucosa. Head is atraumatic, normocephalic. ABDOMEN: Soft. Nondistended. Nontender. NEUROLOGIC: Alert and oriented. Cranial nerves II through XII grossly intact. ASSESSMENT: 1. Minimal abdominal pain. Now resolved 2. Chest pain: evaluated by cardiology, acute coronary event ruled out. PLAN: -No surgical intervention planned -Continue supportive care Physician Release Engineer note has been reviewed by physician. Signing provider agrees with the documented findings, assessment, and plan of care. Objective - Vital Signs Vital signs: Vital Signs Temp 97.9 F 02/11/20 09:00 Pulse 88 02/11/20 09:00 Resp 18 02/11/20 09:00 BP 146/79 02/11/20 09:00 Pulse Ox 97 02/11/20 09:00 Intake & Output 02/10/20 02/11/20 02/11/20 18:59 06:59 18:59 Intake Total 240 Balance 240 Intake: Oral 240 Other: Voiding Method Bedside Commode Bedside Commode Diaper Bedpan Incontinent Urinal Diaper # Voids 3 0 - Labs CBC & Chem 7: 02/11/20 10:10 02/10/20 18:37 Labs: Abnormal Lab Results - Last 24 Hours (Table) 02/10/20 02/10/20 02/11/20 Range/Units 12:20 18:37 10:10 WBC 19.5 H (3.8-10.6) k/uL RBC 3.79 L (3.80-5.40) m/uL Hgb 10.1 L (11.4-16.0) gm/dL MCHC 29.2 L (31.0-37.0) g/dL RDW 16.1 H (11.5-15.5) % Neutrophils # 17.8 H (1.3-7.7) k/uL Lymphocytes # 0.8 L (1.0-4.8) k/uL Sodium 136 L (137-145) mmol/L Potassium 5.2 H (3.5-5.1) mmol/L Urine Appearance Cloudy H (Clear) Urine Protein 1+ H (Negative) Urine Blood Small H (Negative) Urine Nitrite Positive H (Negative) Ur Leukocyte Esterase Large H (Negative) Urine RBC 21 H (0-5) /hpf Urine WBC >182 H (0-5) /hpf Urine WBC Clumps Few H (None) /hpf Urine Bacteria Many H (None) /hpf Hyaline Casts 17 H (0-2) /lpf Urine Mucus Rare H (None) /hpf Microbiology - Last 24 Hours (Table) 02/10/20 12:20 Urine Culture - Preliminary Urine,Clean Catch 02/09/20 14:50 Blood Culture - Preliminary Blood No Growth after 24 hours
[2020-02-11 10:52] LABS: Calcium 8.6 mg/dL (8.4-10.2); Potassium 5.4 mmol/L (3.5-5.1)
[2020-02-11] MEDS ORDERED: SODIUM POLYSTYRENE SULFONATE 15 GM/60 ML BOTTLE PO STA (11:34)
[2020-02-11] MEDS: ALPRAZolam 0.25 MG TAB PO PRN (14:57)
--- NOTE | 2020-02-11 23:08 | PN ---
PROGRESS NOTE DATE OF SERVICE: 02/11/2020 REASON FOR FOLLOWUP: Urinary tract infection. INTERVAL HISTORY: The patient is currently afebrile. The patient is breathing more comfortably. Denies having any chest pain. Minimal cough. No abdominal pain. No diarrhea. PHYSICAL EXAMINATION: Her blood pressure is 179/77, pulse of 83, temperature 98. She is 94% on 2 L nasal cannula. General description is an elderly female lying in bed in no distress. RESPIRATORY SYSTEM: Unlabored breathing, decreased breath sounds at the bases. No wheeze. HEART: S1, S2. Regular rate and rhythm. ABDOMEN: Soft, no tenderness. LABS: Hemoglobin is 10.1, white count 19.5, creatinine is 1.37. DIAGNOSTIC IMPRESSION AND PLAN: Patient with urinary tract infection, covered with Levaquin. Will wait for the culture to finalize to determine discharge antibiotics. Continue with supportive care. MMODL / IJN: [id number] /
--- NOTE | 2020-02-12 00:46 | P.PN ---
Progress Note - Text Progress Note Date: 02/11/20 History of presenting complaint: This is a very pleasant [address] Navas. Chronic stable medical conditions include diabetes, hypertension, depression and anxiety, bilateral kidney stones, COPD stage III. patient is a resident of [facility] Does use a walker.both her and herself tested positive for COVID on January 21. was admitted to the hospital on January 27 and discharged on February 02. With COVID pneumonia.. admitted with features of abdominal pain with partial small bowel obstruction. some vaginal bleeding.patient is seen by Dr. Mckinney. Clinically doing better. Not for any further intervention. Also seen by Dr. Monroe. carried out a pelvic exam.does localized 80 of excoriation. Could be the source.also being treated for a UTI. Today-sitting up. Feeling better. Did eat some lunch. Appetite is still down. Review of systems: Was done for constitutional, cardiovascular, GI, pulmonary. relevant finding as above Active Medications Acetaminophen (Acetaminophen Tab 325 Mg Tab) 650 mg PO BID PRN PRN Reason: Pain Last Admin: 02/09/20 20:38 Dose: 650 mg Documented by: Hydrocodone Bitart/Acetaminophen (Hydrocodone/Apap 7.5-325mg 1 Each Tab) 1 each PO BID [facility] Last Admin: 02/11/20 08:07 Dose: 1 each Documented by: Albuterol Sulfate (Albuterol Hfa Inhaler) 2 puff INHALATION RT-QID [facility] Last Admin: 02/11/20 19:58 Dose: 2 puff Documented by: Alprazolam (Alprazolam 0.25 Mg Tab) 0.25 mg PO TID PRN PRN Reason: Anxiety Last Admin: 02/11/20 14:57 Dose: 0.25 mg Documented by: Bupropion HCl (Bupropion Xl 150 Mg Tab.Er.24h) 150 mg PO DAILY [facility] Last Admin: 02/11/20 08:07 Dose: 150 mg Documented by: Enoxaparin Sodium (Enoxaparin 40 Mg/0.4 Ml Syringe) 40 mg SQ DAILY [facility] Last Admin: 02/11/20 08:06 Dose: 40 mg Documented by: Gabapentin (Gabapentin 100 Mg Cap) 100 mg PO BID [facility] Last Admin: 02/11/20 08:06 Dose: 100 mg Documented by: Hydromorphone HCl (Hydromorphone 0.5 Mg/0.5 Ml Syringe) 0.5 mg IVP Q6HR PRN PRN Reason: Pain Last Admin: 02/10/20 01:52 Dose: 0.5 mg Documented by: Sodium Chloride (Saline 0.9%) 1,000 mls @ 75 mls/hr IV .[id number] [facility] Last Admin: 02/11/20 01:32 Dose: 75 mls/hr Documented by: Levofloxacin (Levofloxacin 750 Mg Tab) 750 mg PO Q48H [facility] Metoprolol Tartrate (Metoprolol Tartrate 50 Mg Tab) 50 mg PO BID [facility] Last Admin: 02/11/20 08:06 Dose: 50 mg Documented by: Naloxone HCl (Naloxone 0.4 Mg/Ml 1 Ml Vial) 0.2 mg IV Q2M PRN PRN Reason: Opioid Reversal Oxybutynin Chloride (Oxybutynin Chloride 5 Mg Tab) 5 mg PO BID [facility] Last Admin: 02/11/20 08:06 Dose: 5 mg Documented by: Pantoprazole Sodium (Pantoprazole 40 Mg Tablet) 40 mg PO BID [facility] Last Admin: 02/11/20 08:06 Dose: 40 mg Documented by: Temazepam (Temazepam 15 Mg Cap) 15 mg PO HS PRN PRN Reason: Insomnia Last Admin: 02/10/20 00:48 Dose: 15 mg Documented by: Zinc Sulfate (Zinc Sulfate 220 Mg Cap) 220 mg PO DAILY [facility] Last Admin: 02/11/20 08:06 Dose: 220 mg Documented by: On examination: VITAL SIGNS: [97.9, 88, 18, 146/79, 97% on 2 L] GENERAL APPEARANCE: sitting up in bed, comfortable. HEENT: Normal external appearance of nose and ear. Oral cavity normal EYES: Pupils equal. Conjunctiva normal. NECK: JVD not raised. Mass not palpable. RESPIRATORY: Respiratory effort normal. decreased breath sounds CARDIOVASCULAR: First and second sounds normal. No edema. ABDOMEN: Soft. Liver and spleen not palpable. No tenderness. No mass palpable. PSYCHIATRY: Alert and oriented x3. Mood and affect normal. 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 See how she does. On Levaquin. Awaiting urine cultures. Discussed with patient.
[2020-02-12] MEDS: SODIUM CHLORIDE 0.9% 1,000 ML IV SCH ×4 (01:09→14:48)
[2020-02-12] MEDS: GABAPENTIN 100 MG CAP PO SCH ×3 (01:16→21:36)
[2020-02-12] MEDS: OXYBUTYNIN CHLORIDE 5 MG TAB PO SCH ×3 (01:16→21:37)
[2020-02-12] MEDS: HYDROcodone/APAP 7.5-325MG 1 EACH TAB PO SCH ×3 (01:16→21:36)
[2020-02-12] MEDS: PANTOPRAZOLE 40 MG TABLET PO SCH ×3 (01:17→21:37)
[2020-02-12] MEDS: METOPROLOL TARTRATE 50 MG TAB PO SCH ×3 (01:17→21:37)
[2020-02-12] MEDS: ALBUTEROL HFA INHALER INHALATION SCH ×4 (08:33→19:20)
[2020-02-12] MEDS: buPROPion XL 150 MG TAB.ER.24H PO SCH (08:43)
[2020-02-12] MEDS: ALPRAZolam 0.25 MG TAB PO PRN ×2 (08:44→17:08)
[2020-02-12] MEDS: ENOXAPARIN 40 MG/0.4 ML SYRINGE SQ SCH (08:44)
[2020-02-12] MEDS: ZINC SULFATE 220 MG CAP PO SCH (08:44)
[2020-02-12 10:14] LABS: Anisocytosis Slight; Basophils % (A) 0 %; Eosinophils # (A) 0.1 k/uL (0-0.7); Eosinophils % (A) 1 %; HCT 29.7 % (34.0-46.0); HGB 9.2 gm/dL (11.4-16.0); Hypochromasia Marked; Lymphocytes # (A) 0.7 k/uL (1.0-4.8); Lymphocytes % (A) 6 %; MCH 28.5 pg (25.0-35.0); MCHC 31.1 g/dL (31.0-37.0); MCV 91.7 fL (80.0-100.0); Mean Platelet Volume 7.9; Monocytes # (A) 0.4 k/uL (0-1.0); Monocytes % (A) 4 %; Neutrophils # (A) 10.5 k/uL (1.3-7.7); Neutrophils % (A) 89 %; Platelet Count 198 k/uL (150-450); RBC 3.24 m/uL (3.80-5.40); RDW 16.2 % (11.5-15.5); WBC 11.9 k/uL (3.8-10.6)
[2020-02-12 10:20] LABS: Calcium 8.4 mg/dL (8.4-10.2); Potassium 5.1 mmol/L (3.5-5.1)
--- NOTE | 2020-02-12 11:57 | P.PN ---
Subjective Progress Note Date: 02/12/20 CHIEF COMPLAINT: Abdominal pain HISTORY OF PRESENT ILLNESS: Patient seen and examined with Dr. Mckinney. Patient presented to the hospital complaints of back pain and chest pain. Today patient is complaining of constipation. She reports no bowel movement for 5 days. Today she reports that her abdomen is slightly more distended today. Afebrile. WBC 11.9. Patient had diagnosed with Covid 19 days ago. She's also been treated for possible UTI. PHYSICAL EXAM: VITAL SIGNS: Reviewed. GENERAL: Well-developed in no acute distress. HEENT: No sclera icterus. Extraocular movements grossly intact. Moist buccal mucosa. Head is atraumatic, normocephalic. ABDOMEN: Soft. Minimal abdominal distention Nontender. NEUROLOGIC: Alert and oriented. Cranial nerves II through XII grossly intact. ASSESSMENT: 1. Abdominal pain with increase in abdominal distention. 2. Possible ileus 3. Constipation PLAN: -Check computed tomography scan of the abdomen and pelvis with oral contrast -Continue supportive care Physician Nurse Intern note has been reviewed by physician. Signing provider agrees with the documented findings, assessment, and plan of care. Objective - Vital Signs Vital signs: Vital Signs Temp 98 F 02/12/20 09:00 Pulse 91 02/12/20 09:00 Resp 20 02/12/20 09:00 BP 144/91 02/12/20 09:00 Pulse Ox 97 02/12/20 09:00 Intake & Output 02/11/20 02/12/20 02/12/20 18:59 06:59 18:59 Intake Total 450 Output Total 600 Balance 450 -600 Intake: Oral 450 Output: Urine 600 Other: Voiding Method Bedside Commode Bedside Commode Bedpan Bedpan Urinal Urinal Diaper Diaper # Voids 1 1 - Labs CBC & Chem 7: 02/12/20 09:21 02/12/20 09:21 Labs: Abnormal Lab Results - Last 24 Hours (Table) 02/12/20 02/12/20 Range/Units 09:21 09:21 WBC 11.9 H (3.8-10.6) k/uL RBC 3.24 L (3.80-5.40) m/uL Hgb 9.2 L (11.4-16.0) gm/dL Hct 29.7 L (34.0-46.0) % RDW 16.2 H (11.5-15.5) % Neutrophils # 10.5 H (1.3-7.7) k/uL Lymphocytes # 0.7 L (1.0-4.8) k/uL Chloride 109 H (98-107) mmol/L BUN 33 H (7-17) mg/dL Creatinine 1.14 H (0.52-1.04) mg/dL Glucose 121 H (74-99) mg/dL Microbiology - Last 24 Hours (Table) 02/10/20 12:20 Urine Culture - Preliminary Urine,Clean Catch Group D Enterococcus 02/10/20 18:37 Blood Culture - Preliminary Blood No Growth after 24 hours 02/09/20 14:50 Blood Culture - Preliminary Blood No Growth after 48 hours
[2020-02-12] MEDS: IOPAMIDOL CONTRAST (ORAL USE) VIAL PO PRN ×2 (12:27→13:25)
[2020-02-12] MEDS ORDERED: LEVOFLOXACIN 750 MG TAB PO SCH (14:00)
--- NOTE | 2020-02-12 16:04 | CT ---
EXAMINATION TYPE: CT abdomen pelvis wo con DATE OF EXAM: 02/12/2020 HISTORY: abdominal pain CT DLP: 1287 mGycm. Automated Exposure Control for Dose Reduction was Utilized. TECHNIQUE: CT scan of the abdomen and pelvis is performed with oral but without IV contrast. COMPARISON: CT 3 days ago FINDINGS: Within the limitations of a non-contrast study, the following observations are made. Subop timal due to body habitus and patient's inability to hold breath. LUNG BASES: New small to moderate-sized right pleural effusion with associated right basilar atelecta sis and/or consolidation. LIVER/GB: Cholecystectomy clips redemonstrated. Increased adjacent ascites. PANCREAS: Xqip-wi-mnqeltct fat replaced atrophy is redemonstrated. SPLEEN: No significant abnormality is seen. ADRENALS: No significant abnormality is seen. KIDNEYS: Cortical thinning both kidneys redemonstrated. Diminished size right greater than left again seen. Scattered nonobstructing calculi bilaterally redemonstrated. Stable mildly distended bladder. No new hydronephrosis. BOWEL: Surgical changes epigastric region redemonstrated. Stomach poorly distended and thus suboptima lly evaluated. Scattered contrast in a nondistended left-sided small bowel loops. Moderate fecal prom inence of right and transverse colon. No suspicious distal colonic distention. GENITAL ORGANS: Uterus surgically absent or markedly atrophic. Scattered bilateral pelvic phleboliths . Surgical clips in the pelvic cul-de-sac. LYMPH NODES: No greater than 1cm abdominal or pelvic lymph nodes are appreciated. OSSEOUS STRUCTURES: No significant abnormality is seen. OTHER: Fat stranding and subcutaneous air likely from subcutaneous medicine injection in the anterior abdominal wall. Vertical midline scar noted lower abdomen. IMPRESSION: Overall nonobstructive bowel gas pattern. [id number] proximal colonic fecal stasi s noted. Increasing perihepatic ascites. New [id number] right pleural effusion and associated atelectasis and/or consolidation.
[2020-02-12] MEDS: ACETAMINOPHEN TAB 325 MG TAB PO PRN (17:08)
[2020-02-12] MEDS ORDERED: VANCOMYCIN IV PER PHARMACY 1 EACH MISC MISCELLANE PRN (21:59)
[2020-02-12] MEDS ORDERED: VANCOMYCIN 1,500 MG in SODIUM CHLORIDE 0.9% 250 ML IVPB SCH (22:15)
--- NOTE | 2020-02-12 23:40 | P.PN ---
Progress Note - Text Progress Note Date: 02/12/20 History of presenting complaint: This is a very pleasant [address] Navas. Chronic stable medical conditions include diabetes, hypertension, depression and anxiety, bilateral kidney stones, COPD stage III. patient is a resident of [facility] Does use a walker.both her and herself tested positive for COVID on January 21. was admitted to the hospital on January 27 and discharged on February 02. With COVID pneumonia.. admitted with features of abdominal pain with partial small bowel obstruction. some vaginal bleeding.patient is seen by Dr. Mckinney. Clinically doing better. Not for any further intervention. Also seen by Dr. Monroe. carried out a pelvic exam.does localized 80 of excoriation. Could be the source.also being treated for a UTI. Today-patient ate some food yesterday. Abdomen feeling more distended. Minimal flatus. No nausea vomiting. Saw the patient earlier today. Computed tomography scan ordered by surgery.. Review of systems: Was done for constitutional, cardiovascular, GI, pulmonary. relevant finding as above Active Medications Acetaminophen (Acetaminophen Tab 325 Mg Tab) 650 mg PO BID PRN PRN Reason: Pain Last Admin: 02/12/20 17:08 Dose: 650 mg Documented by: Hydrocodone Bitart/Acetaminophen (Hydrocodone/Apap 7.5-325mg 1 Each Tab) 1 each PO BID [facility] Last Admin: 02/12/20 21:36 Dose: 1 each Documented by: Albuterol Sulfate (Albuterol Hfa Inhaler) 2 puff INHALATION RT-QID [facility] Last Admin: 02/12/20 19:20 Dose: 2 puff Documented by: Alprazolam (Alprazolam 0.25 Mg Tab) 0.25 mg PO TID PRN PRN Reason: Anxiety Last Admin: 02/12/20 17:08 Dose: 0.25 mg Documented by: Bupropion HCl (Bupropion Xl 150 Mg Tab.Er.24h) 150 mg PO DAILY [facility] Last Admin: 02/12/20 08:43 Dose: 150 mg Documented by: Enoxaparin Sodium (Enoxaparin 40 Mg/0.4 Ml Syringe) 40 mg SQ DAILY [facility] Last Admin: 02/12/20 08:44 Dose: 40 mg Documented by: Gabapentin (Gabapentin 100 Mg Cap) 100 mg PO BID [facility] Last Admin: 02/12/20 21:36 Dose: 100 mg Documented by: Hydromorphone HCl (Hydromorphone 0.5 Mg/0.5 Ml Syringe) 0.5 mg IVP Q6HR PRN PRN Reason: Pain Last Admin: 02/10/20 01:52 Dose: 0.5 mg Documented by: Sodium Chloride (Saline 0.9%) 1,000 mls @ 75 mls/hr IV .[id number] [facility] Last Admin: 02/12/20 14:48 Dose: 75 mls/hr Documented by: Vancomycin HCl 1,500 mg/ (Sodium Chloride) 250 mls @ 125 mls/hr IVPB Q24H [facility] Last Admin: 02/12/20 23:10 Dose: 125 mls/hr Documented by: Levofloxacin (Levofloxacin 750 Mg Tab) 750 mg PO Q48H [facility] Last Admin: 02/12/20 13:25 Dose: 750 mg Documented by: Metoprolol Tartrate (Metoprolol Tartrate 50 Mg Tab) 50 mg PO BID [facility] Last Admin: 02/12/20 21:37 Dose: 50 mg Documented by: Naloxone HCl (Naloxone 0.4 Mg/Ml 1 Ml Vial) 0.2 mg IV Q2M PRN PRN Reason: Opioid Reversal Oxybutynin Chloride (Oxybutynin Chloride 5 Mg Tab) 5 mg PO BID [facility] Last Admin: 02/12/20 21:37 Dose: 5 mg Documented by: Pantoprazole Sodium (Pantoprazole 40 Mg Tablet) 40 mg PO BID [facility] Last Admin: 02/12/20 21:37 Dose: 40 mg Documented by: Temazepam (Temazepam 15 Mg Cap) 15 mg PO HS PRN PRN Reason: Insomnia Last Admin: 02/10/20 00:48 Dose: 15 mg Documented by: Zinc Sulfate (Zinc Sulfate 220 Mg Cap) 220 mg PO DAILY [facility] Last Admin: 02/12/20 08:44 Dose: 220 mg Documented by: On examination: VITAL SIGNS: 98, 87, 20, 1 45 x 65, 99% room air GENERAL APPEARANCE: sitting up in bed, comfortable. HEENT: Normal external appearance of nose and ear. Oral cavity normal EYES: Pupils equal. Conjunctiva normal. NECK: JVD not raised. Mass not palpable. RESPIRATORY: Respiratory effort normal. decreased breath sounds CARDIOVASCULAR: First and second sounds normal. No edema. ABDOMEN: Soft. Distended, no guarding rigidity Liver and spleen not palpable. No tenderness. No mass palpable. PSYCHIATRY: Alert and oriented x3. Mood and affect normal. 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 plan: Continue current medication treatment plan. Hopefully patient can enema if okay with surgery. Discussed with the patient.
--- NOTE | 2020-02-13 00:30 | PN ---
PROGRESS NOTE DATE OF SERVICE: 02/12/2020 REASON FOR FOLLOWUP: Urinary tract infection. INTERVAL HISTORY: The patient is currently afebrile. She is breathing comfortably. Denies significant chest pain. Minimal cough. No nausea, no vomiting. No abdominal pain, no diarrhea. PHYSICAL EXAMINATION: Blood pressure 144/63 with a pulse of 92, temperature 98.2. She is 93% on room air. General description is an elderly female lying in bed in no distress. RESPIRATORY SYSTEM: Unlabored breathing, decreased breath sounds at the bases. ABDOMEN: Soft. EXTREMITIES: No edema of the feet. LABS: Hemoglobin 9.2, white count 11.9, BUN of 33, creatinine 1.14. DIAGNOSTIC IMPRESSION AND PLAN: Patient with urinary tract infection in this patient continued to be treated with Levaquin. White count improved however the urine now showing Enterococcus species and the patient is allergic to PENICILLIN. We will add vancomycin while waiting for sensitivity and repeat a UA and culture. Continue with supportive care. MMODL / IJN: [id number] /
[2020-02-13] MEDS: HYDROmorphone 0.5 MG/0.5 ML SYRINGE IVP PRN ×2 (00:47→06:23)
[2020-02-13] MEDS: SODIUM CHLORIDE 0.9% 1,000 ML IV SCH ×2 (01:38→15:26)
[2020-02-13] MEDS: ALPRAZolam 0.25 MG TAB PO PRN (02:20)
[2020-02-13] MEDS: TEMAZEPAM 15 MG CAP PO PRN (02:21)
[2020-02-13] MEDS: ALBUTEROL HFA INHALER INHALATION SCH ×4 (07:40→21:25)
--- NOTE | 2020-02-13 08:33 | XR ---
2 view abdomen HISTORY: Follow-up bowel obstruction 2 views the abdomen on 3 images, correlation prior CT 02/12/2020, KUB 02/09/2020 There are overlying leads. Surgical clips are present in the right upper quadrant. Air-filled loops o f small and large bowel are present. No evident pneumoperitoneum. Postop changes are noted in the lef t upper quadrant. Surgical tad present in the pelvis. Contrast is present within the bowel in the left lower quadrant. There is motion on the exam. Large amount of retained fecal debris present with in the ascending colon. Lung bases show patchy abnormal increased density. Bone mineralization is red uced. IMPRESSION: Basilar atelectasis, there is a right pleural effusion. Correlate for fecal stasis ileus, follow-up as indicated to assess for possible bowel obstruction.
[2020-02-13] MEDS: OXYBUTYNIN CHLORIDE 5 MG TAB PO SCH ×2 (09:20→20:56)
[2020-02-13] MEDS: HYDROcodone/APAP 7.5-325MG 1 EACH TAB PO SCH ×2 (09:20→20:55)
[2020-02-13] MEDS: ENOXAPARIN 40 MG/0.4 ML SYRINGE SQ SCH (09:20)
[2020-02-13] MEDS: ZINC SULFATE 220 MG CAP PO SCH (09:20)
[2020-02-13] MEDS: buPROPion XL 150 MG TAB.ER.24H PO SCH (09:21)
[2020-02-13] MEDS: PANTOPRAZOLE 40 MG TABLET PO SCH ×2 (09:21→20:55)
[2020-02-13] MEDS: METOPROLOL TARTRATE 50 MG TAB PO SCH ×2 (09:21→20:56)
[2020-02-13] MEDS: GABAPENTIN 100 MG CAP PO SCH ×2 (09:21→20:55)
[2020-02-13 09:24] LABS: Anisocytosis Slight; HCT 30.6 % (34.0-46.0); HGB 9.3 gm/dL (11.4-16.0); Hypochromasia Marked; MCH 28.2 pg (25.0-35.0); MCHC 30.5 g/dL (31.0-37.0); MCV 92.5 fL (80.0-100.0); Mean Platelet Volume 7.7; Platelet Count 193 k/uL (150-450); RBC 3.31 m/uL (3.80-5.40); WBC 11.2 k/uL (3.8-10.6)
[2020-02-13 09:45] LABS: Calcium 8.2 mg/dL (8.4-10.2); Potassium 4.9 mmol/L (3.5-5.1)
--- NOTE | 2020-02-13 10:34 | P.PN ---
Subjective Progress Note Date: 02/13/20 CHIEF COMPLAINT: Abdominal pain HISTORY OF PRESENT ILLNESS: Patient presented to the hospital complaints of back pain and chest pain. Patient continues to complain of constipation. She denies any nausea or vomiting. Does report some abdominal pain and distention. Afebrile. WBC 11.9. Patient had diagnosed with Covid 19 days ago. She's also been treated for possible UTI. Computed tomography scan of abdomen shows Overall nonobstructive bowel gas pattern. Moderate to severe proximal colonic fecal stasis noted. Increasing perihepatic ascites. New small to moderate right pleural effusion and associated atelectasis and/or consolidation Abdominal x-ray these were atelectasis, there is a right pleural effusion. Correlate for fecal stasis ileus, follow-up is indicated to assess for possible bowel obstruction. PHYSICAL EXAM: VITAL SIGNS: Reviewed. GENERAL: Well-developed in no acute distress. HEENT: No sclera icterus. Extraocular movements grossly intact. Moist buccal mucosa. Head is atraumatic, normocephalic. ABDOMEN: Soft. Minimal abdominal distention Nontender. NEUROLOGIC: Alert and oriented. Cranial nerves II through XII grossly intact. ASSESSMENT: 1. Abdominal pain with increase in abdominal distention. 2. Possible ileus 3. Constipation PLAN: -We'll give patient soapsuds enemas 3 for her constipation and fecal stasis -Continue supportive care Physician Wafer Machine Operator note has been reviewed by physician. Signing provider agrees with the documented findings, assessment, and plan of care. Objective - Vital Signs Vital signs: Vital Signs Temp 96.4 F L 02/13/20 08:37 Pulse 100 02/13/20 08:37 Resp 18 02/13/20 08:37 BP 144/65 02/13/20 08:37 Pulse Ox 96 02/13/20 08:37 Intake & Output 02/12/20 02/13/20 02/13/20 18:59 06:59 18:59 Intake Total 350 Output Total 1200 Balance 350 -1200 Intake: Oral 350 Output: Urine 1200 Other: Voiding Method Bedside Commode Bedside Commode Bedpan Bedpan Urinal Urinal Diaper Diaper # Voids 300 - Labs CBC & Chem 7: 02/13/20 09:05 02/13/20 09:05 Labs: Abnormal Lab Results - Last 24 Hours (Table) 02/12/20 02/13/20 02/13/20 Range/Units 11:40 09:05 09:05 WBC 11.2 H (3.8-10.6) k/uL RBC 3.31 L (3.80-5.40) m/uL Hgb 9.3 L (11.4-16.0) gm/dL Hct 30.6 L (34.0-46.0) % MCHC 30.5 L (31.0-37.0) g/dL RDW 16.0 H (11.5-15.5) % Chloride 108 H (98-107) mmol/L BUN 27 H (7-17) mg/dL Glucose 143 H (74-99) mg/dL Calcium 8.2 L (8.4-10.2) mg/dL Coronavirus (PCR) Detected A (Not Detectd) Microbiology - Last 24 Hours (Table) 02/10/20 12:20 Urine Culture - Final Urine,Clean Catch Enterococcus faecalis 02/10/20 18:37 Blood Culture - Preliminary Blood No Growth after 48 hours 02/09/20 14:50 Blood Culture - Preliminary Blood No Growth after 72 hours
[2020-02-13] MEDS ORDERED: MAGNESIUM CITRATE 296 ML BOTTLE PO ONE (11:43)
[2020-02-13 11:55] LABS: Appearance,Urine Cloudy (Clear); Bilirubin,Urine Negative (Negative); Blood,Urine Small (Negative); Color,Urine Yellow; Glucose,Urine (UA) Negative (Negative); Ketones,Urine Trace (Negative); Leukocyte Esterase,Urine Large (Negative); Nitrite,Urine Negative (Negative); PH, Urine 5.5 (5.0-8.0); Protein,Urine 1+ (Negative); RBC,Urine 14 /hpf (0-5); Specific Gravity,Urine 1.018 (1.001-1.035); Urobilinogen,Urine <2.0 mg/dL (<2.0); WBC,Urine 73 /hpf (0-5)
--- NOTE | 2020-02-13 19:32 | P.PN ---
Progress Note - Text Progress Note Date: 02/13/20 History of presenting complaint: This is a very pleasant [address] Navas. Chronic stable medical conditions include diabetes, hypertension, depression and anxiety, bilateral kidney stones, COPD stage III. patient is a resident of [facility] Does use a walker.both her and herself tested positive for COVID on January 21. was admitted to the hospital on January 27 and discharged on February 02. With COVID pneumonia.. admitted with features of abdominal pain with partial small bowel obstruction. some vaginal bleeding.patient is seen by Dr. Mckinney. Clinically doing better. Not for any further intervention. Also seen by Dr. Monroe. carried out a pelvic exam.does localized area off excoriation. Could be the source.also being treated for a UTI. Computed tomography scan of the abdomen showed severe fecal stasis. Today-early today patient was given soapsuds enema. Also given mag citrate. I called this evening to check patient not really had a bowel movement. Except for small 1. Review of systems: Was done for constitutional, cardiovascular, GI, pulmonary. relevant finding as above Active Medications Acetaminophen (Acetaminophen Tab 325 Mg Tab) 650 mg PO BID PRN PRN Reason: Pain Last Admin: 02/12/20 17:08 Dose: 650 mg Documented by: Hydrocodone Bitart/Acetaminophen (Hydrocodone/Apap 7.5-325mg 1 Each Tab) 1 each PO BID [facility] Last Admin: 02/13/20 09:20 Dose: 1 each Documented by: Albuterol Sulfate (Albuterol Hfa Inhaler) 2 puff INHALATION RT-QID [facility] Last Admin: 02/13/20 15:52 Dose: 2 puff Documented by: Alprazolam (Alprazolam 0.25 Mg Tab) 0.25 mg PO TID PRN PRN Reason: Anxiety Last Admin: 02/13/20 02:20 Dose: 0.25 mg Documented by: Bupropion HCl (Bupropion Xl 150 Mg Tab.Er.24h) 150 mg PO DAILY [facility] Last Admin: 02/13/20 09:21 Dose: 150 mg Documented by: Enoxaparin Sodium (Enoxaparin 40 Mg/0.4 Ml Syringe) 40 mg SQ DAILY [facility] Last Admin: 02/13/20 09:20 Dose: 40 mg Documented by: Gabapentin (Gabapentin 100 Mg Cap) 100 mg PO BID [facility] Last Admin: 02/13/20 09:21 Dose: 100 mg Documented by: Hydromorphone HCl (Hydromorphone 0.5 Mg/0.5 Ml Syringe) 0.5 mg IVP Q6HR PRN PRN Reason: Pain Last Admin: 02/13/20 06:23 Dose: 0.5 mg Documented by: Sodium Chloride (Saline 0.9%) 1,000 mls @ 75 mls/hr IV .[id number] [facility] Last Admin: 02/13/20 15:26 Dose: 75 mls/hr Documented by: Vancomycin HCl 1,500 mg/ (Sodium Chloride) 250 mls @ 125 mls/hr IVPB Q24H [facility] Last Admin: 02/12/20 23:10 Dose: 125 mls/hr Documented by: Levofloxacin (Levofloxacin 750 Mg Tab) 750 mg PO Q48H [facility] Last Admin: 02/12/20 13:25 Dose: 750 mg Documented by: Metoprolol Tartrate (Metoprolol Tartrate 50 Mg Tab) 50 mg PO BID [facility] Last Admin: 02/13/20 09:21 Dose: 50 mg Documented by: Naloxone HCl (Naloxone 0.4 Mg/Ml 1 Ml Vial) 0.2 mg IV Q2M PRN PRN Reason: Opioid Reversal Oxybutynin Chloride (Oxybutynin Chloride 5 Mg Tab) 5 mg PO BID [facility] Last Admin: 02/13/20 09:20 Dose: 5 mg Documented by: Pantoprazole Sodium (Pantoprazole 40 Mg Tablet) 40 mg PO BID [facility] Last Admin: 02/13/20 09:21 Dose: 40 mg Documented by: Temazepam (Temazepam 15 Mg Cap) 15 mg PO HS PRN PRN Reason: Insomnia Last Admin: 02/13/20 02:21 Dose: 15 mg Documented by: Zinc Sulfate (Zinc Sulfate 220 Mg Cap) 220 mg PO DAILY [facility] Last Admin: 02/13/20 09:20 Dose: 220 mg Documented by: On examination: VITAL SIGNS: 97.2, 97, 16, 135/66, 94% on 2 L GENERAL APPEARANCE: sitting up in bed, uncomfortable from enema HEENT: Normal external appearance of nose and ear. Oral cavity normal EYES: Pupils equal. Conjunctiva normal. NECK: JVD not raised. Mass not palpable. RESPIRATORY: Respiratory effort normal. decreased breath sounds CARDIOVASCULAR: First and second sounds normal. No edema. ABDOMEN: Soft. Distended, no guarding rigidity Liver and spleen not palpable. No tenderness. No mass palpable. PSYCHIATRY: Alert and oriented x3. Mood and affect normal. 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 -Disposition-IPD rehab plan: Patient received mag citrate and soapsuds enema. Minimal response. We'll order a milk and molasses enema.
[2020-02-13] MEDS: NITROFURANTOIN MONOHYD/M-CRYST 100 MG CAP PO SCH (22:18)
--- NOTE | 2020-02-13 23:02 | PN ---
PROGRESS NOTE DATE OF SERVICE: 02/13/2020 REASON FOR FOLLOWUP: Urinary tract infection. INTERVAL HISTORY: Patient is currently afebrile. The patient is breathing comfortably. The patient denies having any chest pain. No shortness of breath or cough. No abdominal pain or diarrhea. PHYSICAL EXAMINATION: Her blood pressure 135/66, pulse 97, temperature of 97.8. She is 94% on 2 L nasal cannula. General description is an elderly female lying in bed in no distress. Respiratory system: Unlabored breathing, decreased breath sounds in the bases. No wheeze. HEART: S1, S2. Regular rate and rhythm. ABDOMEN: Soft, no tenderness. LABS: Urine has been finalized with VRE with the repeat UA is minimally positive. DIAGNOSTIC IMPRESSION AND PLAN: Patient with urinary tract infection. Urine has been finalized with resistant enterococcus faecalis with sensitivity to vancomycin. We will go ahead and discontinue both the vancomycin, Levaquin, start the patient on Macrobid, short course, while waiting for repeat cultures to finalize and monitor clinical course closely. MMODL / IJN: [id number] /
[2020-02-14] MEDS: SODIUM CHLORIDE 0.9% 1,000 ML IV SCH ×2 (03:16→16:06)
[2020-02-14] MEDS: ACETAMINOPHEN TAB 325 MG TAB PO PRN (03:17)
[2020-02-14] MEDS: ALBUTEROL HFA INHALER INHALATION SCH ×3 (08:37→15:58)
[2020-02-14] MEDS: ENOXAPARIN 40 MG/0.4 ML SYRINGE SQ SCH (09:32)
[2020-02-14] MEDS: ZINC SULFATE 220 MG CAP PO SCH (09:32)
[2020-02-14] MEDS: METOPROLOL TARTRATE 50 MG TAB PO SCH ×2 (09:32→22:03)
[2020-02-14] MEDS: GABAPENTIN 100 MG CAP PO SCH ×2 (09:32→22:02)
[2020-02-14] MEDS: OXYBUTYNIN CHLORIDE 5 MG TAB PO SCH ×2 (09:32→22:03)
[2020-02-14] MEDS: HYDROcodone/APAP 7.5-325MG 1 EACH TAB PO SCH ×2 (09:32→22:02)
[2020-02-14] MEDS: buPROPion XL 150 MG TAB.ER.24H PO SCH (09:32)
[2020-02-14] MEDS: PANTOPRAZOLE 40 MG TABLET PO SCH ×2 (09:32→22:03)
[2020-02-14] MEDS: NITROFURANTOIN MONOHYD/M-CRYST 100 MG CAP PO SCH ×2 (09:32→22:03)
--- NOTE | 2020-02-14 10:13 | P.PN ---
Subjective Progress Note Date: 02/14/20 CHIEF COMPLAINT: Abdominal pain HISTORY OF PRESENT ILLNESS: Patient presented to the hospital complaints of back pain and chest pain. Patient continues to complain of constipation. She denies any nausea or vomiting. Does report some abdominal pain and distention. She is passing gas. Patient has had no bowel movements with subsequent enemas. Per nursing staff patient unable to retain the enema. She also received mag citrate with no results. Patient is afebrile. Computed tomography scan of abdomen shows Overall nonobstructive bowel gas pattern. Moderate to severe proximal colonic fecal stasis noted. Increasing perihepatic ascites. New small to moderate right pleural effusion and associ ated atelectasis and/or consolidation Abdominal x-ray these were atelectasis, there is a right pleural effusion. Correlate for fecal stasis ileus, follow-up is indicated to assess for possible bowel obstruction. PHYSICAL EXAM: VITAL SIGNS: Reviewed. GENERAL: Well-developed in no acute distress. HEENT: No sclera icterus. Extraocular movements grossly intact. Moist buccal mucosa. Head is atraumatic, normocephalic. ABDOMEN: Soft. Minimal abdominal distention Nontender. NEUROLOGIC: Alert and oriented. Cranial nerves II through XII grossly intact. ASSESSMENT: 1. Abdominal pain with constipation and fecal stasis 2. Possible ileus 3. Constipation PLAN: -We'll give lactulose 30 mL by mouth every hour 3 -Start Colace 100 mg twice a day -Continue supportive care Physician Executive Office Manager note has been reviewed by physician. Signing provider agrees with the documented findings, assessment, and plan of care. Objective - Vital Signs Vital signs: Vital Signs Temp 97.0 F L 02/14/20 09:00 Pulse 91 02/14/20 09:00 Resp 18 02/14/20 09:00 BP 184/87 02/14/20 09:00 Pulse Ox 97 02/14/20 09:00 Intake & Output 02/13/20 02/14/20 02/14/20 18:59 06:59 18:59 Intake Total 465 Output Total 900 Balance 465 -900 Intake: Intake, IV Titration 225 Amount Sodium Chloride 0.9% 1, 225 000 ml @ 75 mls/hr IV . [id number] [facility] Rx#:[id number] Oral 240 Output: Urine 900 Other: Voiding Method Bedpan Bedpan Urinal Urinal Diaper Diaper # Voids 2 1 # Bowel Movements 0 0 - Labs CBC & Chem 7: 02/13/20 09:05 02/13/20 09:05 Labs: Abnormal Lab Results - Last 24 Hours (Table) 02/13/20 Range/Units 11:27 Urine Appearance Cloudy H (Clear) Urine Protein 1+ H (Negative) Urine Ketones Trace H (Negative) Urine Blood Small H (Negative) Ur Leukocyte Esterase Large H (Negative) Urine RBC 14 H (0-5) /hpf Urine WBC 73 H (0-5) /hpf Microbiology - Last 24 Hours (Table) 02/10/20 18:37 Blood Culture - Preliminary Blood No Growth after 72 hours 02/13/20 11:27 Urine Culture - Preliminary Urine,Catheterized 02/09/20 14:50 Blood Culture - Preliminary Blood No Growth after 96 hours 02/10/20 12:20 Urine Culture - Final Urine,Clean Catch Enterococcus faecalis
[2020-02-14] MEDS: LACTULOSE 20 GM/30 ML CUP PO SCH ×3 (10:55→13:09)
[2020-02-14] MEDS: DOCUSATE 100 MG CAP PO SCH ×2 (10:56→22:02)
[2020-02-14] MEDS ORDERED: PEG 3350-NA SULF,BICARB,CL/KCL 4,000 ML BOTTLE PO ONE (13:00)
--- NOTE | 2020-02-14 16:20 | PN ---
PROGRESS NOTE DATE OF SERVICE: 02/14/2020 REASON FOR FOLLOWUP: Urinary tract infection. INTERVAL HISTORY: The patient is currently afebrile. The patient is breathing comfortably. Complaining of some lower abdominal pain, nausea, but no vomiting. No chest pain, shortness of breath or cough. PHYSICAL EXAMINATION: Blood pressure 159/87, pulse of 97, temperature 97.1. She is 97% on 2 L nasal cannula. General description is an elderly female lying in bed in no distress. RESPIRATORY SYSTEM: Unlabored breathing. Clear to auscultation anteriorly. HEART: S1, S2. Regular rate and rhythm. ABDOMEN: Soft. No guarding or rigidity. LABS: Urine was positive mildly after change of catheter yesterday and her white count was down to 11.2. DIAGNOSTIC IMPRESSION AND PLAN: Patient with Enterococcus faecalis urinary tract infection, currently being treated with oral Bactrim. Will follow up on the repeat urine cultures and monitor clinical course closely. MMODL / IJN: [id number] /
--- NOTE | 2020-02-14 18:41 | P.PN ---
Progress Note - Text Progress Note Date: 02/14/20 History of presenting complaint: This is a very pleasant [address] Navas. Chronic stable medical conditions include diabetes, hypertension, depression and anxiety, bilateral kidney stones, COPD stage III. patient is a resident of [facility] Does use a walker.both her and herself tested positive for COVID on January 21. was admitted to the hospital on January 27 and discharged on February 02. With COVID pneumonia.. admitted with features of abdominal pain with partial small bowel obstruction. some vaginal bleeding.patient is seen by Dr. Mckinney. Clinically doing better. Not for any further intervention. Also seen by Dr. Monroe. carried out a pelvic exam.does localized area off excoriation. Could be the source.also being treated for a UTI. Computed tomography scan of the abdomen showed severe fecal stasis. Patient has been given lactulose, soapsuds enema, milk and molasses enema, mag citrate.,. Patient tested positive for coronavirus. Today-patient has not had a BM with above laxatives. Able to eat food. No nausea vomiting. Slight abdominal distention. Review of systems: Was done for constitutional, cardiovascular, GI, pulmonary. relevant finding as above Active Medications Acetaminophen (Acetaminophen Tab 325 Mg Tab) 650 mg PO BID PRN PRN Reason: Pain Last Admin: 02/14/20 03:17 Dose: 650 mg Documented by: Hydrocodone Bitart/Acetaminophen (Hydrocodone/Apap 7.5-325mg 1 Each Tab) 1 each PO BID [facility] Last Admin: 02/14/20 09:32 Dose: 1 each Documented by: Albuterol Sulfate (Albuterol Hfa Inhaler) 2 puff INHALATION RT-QID [facility] Last Admin: 02/14/20 15:58 Dose: 2 puff Documented by: Alprazolam (Alprazolam 0.25 Mg Tab) 0.25 mg PO TID PRN PRN Reason: Anxiety Last Admin: 02/13/20 02:20 Dose: 0.25 mg Documented by: Bupropion HCl (Bupropion Xl 150 Mg Tab.Er.24h) 150 mg PO DAILY [facility] Last Admin: 02/14/20 09:32 Dose: 150 mg Documented by: Docusate Sodium (Docusate 100 Mg Cap) 100 mg PO BID [facility] Last Admin: 02/14/20 10:56 Dose: 100 mg Documented by: Enoxaparin Sodium (Enoxaparin 40 Mg/0.4 Ml Syringe) 40 mg SQ DAILY [facility] Last Admin: 02/14/20 09:32 Dose: 40 mg Documented by: Gabapentin (Gabapentin 100 Mg Cap) 100 mg PO BID [facility] Last Admin: 02/14/20 09:32 Dose: 100 mg Documented by: Hydromorphone HCl (Hydromorphone 0.5 Mg/0.5 Ml Syringe) 0.5 mg IVP Q6HR PRN PRN Reason: Pain Last Admin: 02/13/20 06:23 Dose: 0.5 mg Documented by: Sodium Chloride (Saline 0.9%) 1,000 mls @ 75 mls/hr IV .[id number] [facility] Last Admin: 02/14/20 16:06 Dose: 75 mls/hr Documented by: Metoprolol Tartrate (Metoprolol Tartrate 50 Mg Tab) 50 mg PO BID [facility] Last Admin: 02/14/20 09:32 Dose: 50 mg Documented by: Naloxone HCl (Naloxone 0.4 Mg/Ml 1 Ml Vial) 0.2 mg IV Q2M PRN PRN Reason: Opioid Reversal Nitrofurantoin Macrocrystals (Nitrofurantoin Monohyd/M-Cryst 100 Mg Cap) 100 mg PO BID [facility] Last Admin: 02/14/20 09:32 Dose: 100 mg Documented by: Oxybutynin Chloride (Oxybutynin Chloride 5 Mg Tab) 5 mg PO BID [facility] Last Admin: 02/14/20 09:32 Dose: 5 mg Documented by: Pantoprazole Sodium (Pantoprazole 40 Mg Tablet) 40 mg PO BID [facility] Last Admin: 02/14/20 09:32 Dose: 40 mg Documented by: Temazepam (Temazepam 15 Mg Cap) 15 mg PO HS PRN PRN Reason: Insomnia Last Admin: 02/13/20 02:21 Dose: 15 mg Documented by: Zinc Sulfate (Zinc Sulfate 220 Mg Cap) 220 mg PO DAILY [facility] Last Admin: 02/14/20 09:32 Dose: 220 mg Documented by: On examination: VITAL SIGNS: 97, 91, 18, 1 84 x 87, 97% on 2 L GENERAL APPEARANCE: Laying in bed, awake HEENT: Normal external appearance of nose and ear. Oral cavity normal EYES: Pupils equal. Conjunctiva normal. NECK: JVD not raised. Mass not palpable. RESPIRATORY: Respiratory effort normal. decreased breath sounds CARDIOVASCULAR: First and second sounds normal. No edema. ABDOMEN: Soft. Distended, no guarding rigidity Liver and spleen not palpable. No tenderness. No mass palpable. PSYCHIATRY: Alert and oriented x3. Mood and affect normal. 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 And enema. -Asymptomatic coronavirus infection. -Disposition-IPD rehab plan: Spoke to the nurse to get an okay from surgery and give the patient Golytely. No further treatment for asymptomatic coronavirus infection.
[2020-02-15] MEDS: ACETAMINOPHEN TAB 325 MG TAB PO PRN (04:09)
[2020-02-15] MEDS: SODIUM CHLORIDE 0.9% 1,000 ML IV SCH (06:00)
[2020-02-15] MEDS: ALBUTEROL HFA INHALER INHALATION SCH ×5 (08:37→19:24)
[2020-02-15] MEDS: METOPROLOL TARTRATE 50 MG TAB PO SCH ×2 (10:05→20:39)
[2020-02-15] MEDS: HYDROcodone/APAP 7.5-325MG 1 EACH TAB PO SCH ×2 (10:05→20:38)
[2020-02-15] MEDS: ZINC SULFATE 220 MG CAP PO SCH (10:05)
[2020-02-15] MEDS: DOCUSATE 100 MG CAP PO SCH ×2 (10:05→20:39)
[2020-02-15] MEDS: GABAPENTIN 100 MG CAP PO SCH ×2 (10:06→20:38)
[2020-02-15] MEDS: buPROPion XL 150 MG TAB.ER.24H PO SCH (10:07)
[2020-02-15] MEDS: ENOXAPARIN 40 MG/0.4 ML SYRINGE SQ SCH (10:07)
[2020-02-15] MEDS: NITROFURANTOIN MONOHYD/M-CRYST 100 MG CAP PO SCH ×2 (10:07→21:24)
[2020-02-15] MEDS: PANTOPRAZOLE 40 MG TABLET PO SCH ×2 (10:07→20:39)
--- NOTE | 2020-02-15 10:36 | P.PN ---
Subjective Progress Note Date: 02/15/20 CHIEF COMPLAINT: Abdominal pain HISTORY OF PRESENT ILLNESS: Patient is being followed for abdominal pain and constipation. She was able to have 3 large bowel movements with the GoLYTELY. Afebrile. Patient is eager for discharge. PHYSICAL EXAM: VITAL SIGNS: Reviewed. GENERAL: Well-developed in no acute distress. HEENT: No sclera icterus. Extraocular movements grossly intact. Moist buccal mucosa. Head is atraumatic, normocephalic. ABDOMEN: Soft. Nondistended Nontender. NEUROLOGIC: Alert and oriented. Cranial nerves II through XII grossly intact. ASSESSMENT: 1. Abdominal pain with constipation and fecal stasis improved with GoLYTELY 2. Possible ileus 3. Constipation PLAN: -Patient is stable for discharge from surgical standpoint Physician Compensation Advisor note has been reviewed by physician. Signing provider agrees with the documented findings, assessment, and plan of care. Objective - Vital Signs Vital signs: Vital Signs Temp 98 F 02/15/20 08:08 Pulse 91 02/15/20 08:28 Resp 22 02/15/20 08:28 BP 169/77 02/15/20 08:08 Pulse Ox 96 02/15/20 08:08 Intake & Output 02/14/20 02/15/20 02/15/20 18:59 06:59 18:59 Intake Total 450 120 Output Total 400 Balance 450 -280 Intake: Intake, IV Titration 450 Amount Sodium Chloride 0.9% 1, 450 000 ml @ 75 mls/hr IV . [id number] ALBERTO Rx#:[id number] Oral 120 Output: Urine 400 Other: Voiding Method Bedpan Bedpan Bedpan Urinal Urinal Urinal Diaper Diaper Diaper # Voids 3 # Bowel Movements 1 1 - Labs CBC & Chem 7: 02/13/20 09:05 02/13/20 09:05 Labs: Microbiology - Last 24 Hours (Table) 02/10/20 18:37 Blood Culture - Preliminary Blood No Growth after 96 hours 02/13/20 11:27 Urine Culture - Preliminary Urine,Catheterized Group D Enterococcus 02/09/20 14:50 Blood Culture - Preliminary Blood No Growth after 120 hours
[2020-02-15 10:38] VITALS: BMI 32.9
[2020-02-15] MEDS: OXYBUTYNIN CHLORIDE 5 MG TAB PO SCH ×2 (11:09→20:39)
--- NOTE | 2020-02-15 21:13 | P.PN ---
Progress Note - Text Progress Note Date: 02/15/20 History of presenting complaint: This is a very pleasant [address] Navas. Chronic stable medical conditions include diabetes, hypertension, depression and anxiety, bilateral kidney stones, COPD stage III. patient is a resident of [facility] Does use a walker.both her and herself tested positive for COVID on January 21. was admitted to the hospital on January 27 and discharged on February 02. With COVID pneumonia.. admitted with features of abdominal pain with partial small bowel obstruction. some vaginal bleeding.patient is seen by Dr. Mckinney. Clinically doing better. Not for any further intervention. Also seen by Dr. Monroe. carried out a pelvic exam.does localized area off excoriation. Could be the source.also being treated for a UTI. Computed tomography scan of the abdomen showed severe fecal stasis. Patient has been given lactulose, soapsuds enema, milk and molasses enema, mag citrate.,. Patient tested positive for coronavirus. Today-patient is a large bowel movement today. Stable. Fair oral intake. Review of systems: Was done for constitutional, cardiovascular, GI, pulmonary. relevant finding as above Active Medications Acetaminophen (Acetaminophen Tab 325 Mg Tab) 650 mg PO BID PRN PRN Reason: Pain Last Admin: 02/15/20 04:09 Dose: 650 mg Documented by: Hydrocodone Bitart/Acetaminophen (Hydrocodone/Apap 7.5-325mg 1 Each Tab) 1 each PO BID [facility] Last Admin: 02/15/20 20:38 Dose: 1 each Documented by: Albuterol Sulfate (Albuterol Hfa Inhaler) 2 puff INHALATION RT-QID [facility] Last Admin: 02/15/20 19:24 Dose: 2 puff Documented by: Alprazolam (Alprazolam 0.25 Mg Tab) 0.25 mg PO TID PRN PRN Reason: Anxiety Last Admin: 02/13/20 02:20 Dose: 0.25 mg Documented by: Bupropion HCl (Bupropion Xl 150 Mg Tab.Er.24h) 150 mg PO DAILY [facility] Last Admin: 02/15/20 10:07 Dose: 150 mg Documented by: Docusate Sodium (Docusate 100 Mg Cap) 100 mg PO BID [facility] Last Admin: 02/15/20 20:39 Dose: 100 mg Documented by: Enoxaparin Sodium (Enoxaparin 40 Mg/0.4 Ml Syringe) 40 mg SQ DAILY [facility] Last Admin: 02/15/20 10:07 Dose: 40 mg Documented by: Gabapentin (Gabapentin 100 Mg Cap) 100 mg PO BID [facility] Last Admin: 02/15/20 20:38 Dose: 100 mg Documented by: Hydromorphone HCl (Hydromorphone 0.5 Mg/0.5 Ml Syringe) 0.5 mg IVP Q6HR PRN PRN Reason: Pain Last Admin: 02/13/20 06:23 Dose: 0.5 mg Documented by: Sodium Chloride (Saline 0.9%) 1,000 mls @ 75 mls/hr IV .[id number] [facility] Last Admin: 02/15/20 06:00 Dose: 75 mls/hr Documented by: Metoprolol Tartrate (Metoprolol Tartrate 50 Mg Tab) 50 mg PO BID [facility] Last Admin: 02/15/20 20:39 Dose: 50 mg Documented by: Naloxone HCl (Naloxone 0.4 Mg/Ml 1 Ml Vial) 0.2 mg IV Q2M PRN PRN Reason: Opioid Reversal Nitrofurantoin Macrocrystals (Nitrofurantoin Monohyd/M-Cryst 100 Mg Cap) 100 mg PO BID [facility] Last Admin: 02/15/20 10:07 Dose: 100 mg Documented by: Oxybutynin Chloride (Oxybutynin Chloride 5 Mg Tab) 5 mg PO BID [facility] Last Admin: 02/15/20 20:39 Dose: 5 mg Documented by: Pantoprazole Sodium (Pantoprazole 40 Mg Tablet) 40 mg PO BID [facility] Last Admin: 02/15/20 20:39 Dose: 40 mg Documented by: Temazepam (Temazepam 15 Mg Cap) 15 mg PO HS PRN PRN Reason: Insomnia Last Admin: 02/13/20 02:21 Dose: 15 mg Documented by: Zinc Sulfate (Zinc Sulfate 220 Mg Cap) 220 mg PO DAILY [facility] Last Admin: 02/15/20 10:05 Dose: 220 mg Documented by: On examination: VITAL SIGNS: 98, 77, 20, 157.76, 96% on 2 L GENERAL APPEARANCE: Laying in bed, awake HEENT: Normal external appearance of nose and ear. Oral cavity normal EYES: Pupils equal. Conjunctiva normal. NECK: JVD not raised. Mass not palpable. RESPIRATORY: Respiratory effort normal. decreased breath sounds CARDIOVASCULAR: First and second sounds normal. No edema. ABDOMEN: Soft. Nontender no guarding rigidity Liver and spleen not palpable. No tenderness. No mass palpable. PSYCHIATRY: Alert and oriented x3. Mood and affect normal. INVESTIGATIONS, reviewed in the clinical context: White count 9.2 hemoglobin 9.3 potassium 4.9 creatinine 1.04 Computed tomography scan of the abdomen-fecal stasis Previous testing white count 19.5 hemoglobin 10.1 potassium 5.4 bun 37 creatinine 1.37 UA positive urine culture-Enterococcus faecalis Coronavirus PCR [February 11] detected Assessment:-- -Acute UTI with cystitis with Enterococcus faecalis-antibiotics per Dr. 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 -Disposition-IPD rehab plan: Spoke with Fantasma the social director. I'll transition 5. Rehab has not arrived. Patient likely spent the weekend in the hospital. On nitrofurantoin.
--- NOTE | 2020-02-15 22:32 | PN ---
PROGRESS NOTE DATE OF SERVICE: 02/15/2020. REASON FOR FOLLOWUP: Urinary tract infection. INTERVAL HISTORY: Patient is currently afebrile. She is breathing comfortably. Denies any chest pain. Occasional cough. Abdominal pain is improved. Did have bowel movement. No nausea or vomiting. PHYSICAL EXAMINATION: Blood pressure 155/76, pulse of 73, temperature 98. She is 96% on 2 L nasal cannula. General description is an elderly female lying in bed in no distress. Respiratory system: Unlabored breathing with decreased breath sounds in the bases reported by the nursing staff. Extremities: No edema of the feet. LABS: No new labs have been obtained today. Repeat urine with Enterococcus. DIAGNOSTIC IMPRESSION AND PLAN: Patient with Enterococcus faecalis urinary tract infection. Patient is currently covered with Macrobid to continue. No fever. White count normal. Continue supportive care. MMODL / IJN: [id number] /
[2020-02-16] MEDS: SODIUM CHLORIDE 0.9% 1,000 ML IV SCH ×3 (00:22→17:55)
[2020-02-16] MEDS: PSYLLIUM HUSK 100% 6 GM PACKET PO SCH ×3 (01:29→20:23)
[2020-02-16] MEDS: ALBUTEROL HFA INHALER INHALATION SCH ×4 (07:57→20:09)
[2020-02-16] MEDS: ZINC SULFATE 220 MG CAP PO SCH (08:50)
[2020-02-16] MEDS: ENOXAPARIN 40 MG/0.4 ML SYRINGE SQ SCH (08:50)
[2020-02-16] MEDS: HYDROcodone/APAP 7.5-325MG 1 EACH TAB PO SCH ×2 (08:50→20:23)
[2020-02-16] MEDS: buPROPion XL 150 MG TAB.ER.24H PO SCH (08:52)
[2020-02-16] MEDS: PANTOPRAZOLE 40 MG TABLET PO SCH ×2 (08:52→20:22)
[2020-02-16] MEDS: METOPROLOL TARTRATE 50 MG TAB PO SCH ×2 (08:52→20:23)
[2020-02-16] MEDS: NITROFURANTOIN MONOHYD/M-CRYST 100 MG CAP PO SCH ×2 (08:52→20:47)
[2020-02-16] MEDS: GABAPENTIN 100 MG CAP PO SCH ×2 (08:52→20:23)
[2020-02-16] MEDS: OXYBUTYNIN CHLORIDE 5 MG TAB PO SCH ×2 (08:52→20:23)
--- NOTE | 2020-02-16 10:59 | P.PN ---
Progress Note - Text Progress Note Date: 02/16/20 Patient remains stable. She denies any significant abdominal pain. She's had bowel movements. On exam vital signs are stable. Abdomen soft. There is no significant tenderness. Patient is stable from surgical standpoint for discharge.
[2020-02-16] MEDS: ACETAMINOPHEN TAB 325 MG TAB PO PRN (17:04)
[2020-02-16] MEDS ORDERED: FUROSEMIDE 10 MG/ML 4 ML VIAL IV STA (17:33)
--- NOTE | 2020-02-16 20:14 | P.PN ---
Progress Note - Text Progress Note Date: 02/16/20 History of presenting complaint: This is a very pleasant [address] Navas. Chronic stable medical conditions include diabetes, hypertension, depression and anxiety, bilateral kidney stones, COPD stage III. patient is a resident of [facility] Does use a walker.both her and herself tested positive for COVID on January 21. was admitted to the hospital on January 27 and discharged on February 02. With COVID pneumonia.. admitted with features of abdominal pain with partial small bowel obstruction. some vaginal bleeding.patient is seen by Dr. Mckinney. Clinically doing better. Not for any further intervention. Also seen by Dr. Monroe. carried out a pelvic exam.does localized area off excoriation. Could be the source.also being treated for a UTI. Computed tomography scan of the abdomen showed severe fecal stasis. Patient has been given lactulose, soapsuds enema, milk and molasses enema, mag citrate.,. Patient tested positive for coronavirus. Finally after getting GoLYTELY had a large heavy bowel movement. Today-comfortable. Laying in bed. No new issues.. Appetite not good. Review of systems: Was done for constitutional, cardiovascular, GI, pulmonary. relevant finding as above Active Medications Acetaminophen (Acetaminophen Tab 325 Mg Tab) 650 mg PO BID PRN PRN Reason: Pain Last Admin: 02/16/20 17:04 Dose: 650 mg Documented by: Hydrocodone Bitart/Acetaminophen (Hydrocodone/Apap 7.5-325mg 1 Each Tab) 1 each PO BID [facility] Last Admin: 02/16/20 08:50 Dose: 1 each Documented by: Albuterol Sulfate (Albuterol Hfa Inhaler) 2 puff INHALATION RT-QID [facility] Last Admin: 02/16/20 20:09 Dose: 2 puff Documented by: Alprazolam (Alprazolam 0.25 Mg Tab) 0.25 mg PO TID PRN PRN Reason: Anxiety Last Admin: 02/13/20 02:20 Dose: 0.25 mg Documented by: Bupropion HCl (Bupropion Xl 150 Mg Tab.Er.24h) 150 mg PO DAILY [facility] Last Admin: 02/16/20 08:52 Dose: 150 mg Documented by: Enoxaparin Sodium (Enoxaparin 40 Mg/0.4 Ml Syringe) 40 mg SQ DAILY [facility] Last Admin: 02/16/20 08:50 Dose: 40 mg Documented by: Gabapentin (Gabapentin 100 Mg Cap) 100 mg PO BID [facility] Last Admin: 02/16/20 08:52 Dose: 100 mg Documented by: Hydromorphone HCl (Hydromorphone 0.5 Mg/0.5 Ml Syringe) 0.5 mg IVP Q6HR PRN PRN Reason: Pain Last Admin: 02/13/20 06:23 Dose: 0.5 mg Documented by: Sodium Chloride (Saline 0.9%) 1,000 mls @ 20 mls/hr IV .Q24H [facility] Last Admin: 02/16/20 17:55 Dose: 20 mls/hr Documented by: Metoprolol Tartrate (Metoprolol Tartrate 50 Mg Tab) 50 mg PO BID [facility] Last Admin: 02/16/20 08:52 Dose: 50 mg Documented by: Naloxone HCl (Naloxone 0.4 Mg/Ml 1 Ml Vial) 0.2 mg IV Q2M PRN PRN Reason: Opioid Reversal Nitrofurantoin Macrocrystals (Nitrofurantoin Monohyd/M-Cryst 100 Mg Cap) 100 mg PO BID [facility] Last Admin: 02/16/20 08:52 Dose: 100 mg Documented by: Oxybutynin Chloride (Oxybutynin Chloride 5 Mg Tab) 5 mg PO BID [facility] Last Admin: 02/16/20 08:52 Dose: 5 mg Documented by: Pantoprazole Sodium (Pantoprazole 40 Mg Tablet) 40 mg PO BID [facility] Last Admin: 02/16/20 08:52 Dose: 40 mg Documented by: Psyllium Hydrophilic Mucilloid (Psyllium Husk 100% 6 Gm Packet) 6 gm PO BID [facility] Last Admin: 02/16/20 08:50 Dose: 6 gm Documented by: Temazepam (Temazepam 15 Mg Cap) 15 mg PO HS PRN PRN Reason: Insomnia Last Admin: 02/13/20 02:21 Dose: 15 mg Documented by: Zinc Sulfate (Zinc Sulfate 220 Mg Cap) 220 mg PO DAILY [facility] Last Admin: 02/16/20 08:50 Dose: 220 mg Documented by: On examination: VITAL SIGNS: 98.1, 84, 20, 169/74, 97% on 2 L GENERAL APPEARANCE: Laying in bed, awake HEENT: Normal external appearance of nose and ear. Oral cavity normal EYES: Pupils equal. Conjunctiva normal. NECK: JVD not raised. Mass not palpable. RESPIRATORY: Respiratory effort normal. decreased breath sounds CARDIOVASCULAR: First and second sounds normal. No edema. ABDOMEN: Soft. Nontender no guarding rigidity Liver and spleen not palpable. No tenderness. No mass palpable. PSYCHIATRY: Alert and oriented x3. Mood and affect normal. INVESTIGATIONS, reviewed in the clinical context: White count 9.2 hemoglobin 9.3 potassium 4.9 creatinine 1.04 Computed tomography scan of the abdomen-fecal stasis Previous testing white count 19.5 hemoglobin 10.1 potassium 5.4 bun 37 creatinine 1.37 UA positive urine culture-Enterococcus faecalis Coronavirus PCR [February 11] detected Assessment:-- -Acute UTI with cystitis with Enterococcus faecalis-Macrobid per Dr. 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 -Disposition-[facility] rehab plan: Continue current medication. Plan. Pending disposition to [facility] rehab
--- NOTE | 2020-02-16 21:47 | PN ---
PROGRESS NOTE DATE OF SERVICE: 02/16/2020 REASON FOR FOLLOWUP: Urinary tract infection. INTERVAL HISTORY: The patient is currently afebrile. The patient is breathing comfortably, currently, sating 98% on room air. The patient is feeling better. Denies having any chest pain or shortness of breath. Minimal cough. No abdominal pain. No diarrhea. PHYSICAL EXAMINATION: Blood pressure 158/81 with a pulse of 97. Temperature 97.6. She is 98% on room air. General description: The patient is an elderly female lying in bed in no distress. Respiratory system: Unlabored breathing, clear to auscultation anteriorly. Heart S1, S2. Regular rate and rhythm. ABDOMEN: Soft, no tenderness. LABS: Repeat urine showing Enterococcus faecalis. The patient does have a PENICILLIN allergy. DIAGNOSTIC IMPRESSION AND PLAN: Patient with Enterococcus faecalis urinary tract infection with PENICILLIN allergy. Continue Macrobid for 7 days and close outpatient followup. MMODL / IJN: [id number] /
[2020-02-16] MEDS: ALPRAZolam 0.25 MG TAB PO PRN (21:57)
[2020-02-17] MEDS: ACETAMINOPHEN TAB 325 MG TAB PO PRN (02:26)
[2020-02-17] MEDS: ALBUTEROL HFA INHALER INHALATION SCH ×4 (07:32→19:50)
[2020-02-17] MEDS: PSYLLIUM HUSK 100% 6 GM PACKET PO SCH (08:54)
[2020-02-17] MEDS: ENOXAPARIN 40 MG/0.4 ML SYRINGE SQ SCH (08:55)
[2020-02-17] MEDS: buPROPion XL 150 MG TAB.ER.24H PO SCH (08:56)
[2020-02-17] MEDS: METOPROLOL TARTRATE 50 MG TAB PO SCH (08:56)
[2020-02-17] MEDS: GABAPENTIN 100 MG CAP PO SCH (08:56)
[2020-02-17] MEDS: ZINC SULFATE 220 MG CAP PO SCH (08:56)
[2020-02-17] MEDS: OXYBUTYNIN CHLORIDE 5 MG TAB PO SCH (08:56)
[2020-02-17] MEDS: PANTOPRAZOLE 40 MG TABLET PO SCH (08:56)
[2020-02-17] MEDS: HYDROcodone/APAP 7.5-325MG 1 EACH TAB PO SCH (08:56)
[2020-02-17] MEDS: NITROFURANTOIN MONOHYD/M-CRYST 100 MG CAP PO SCH (08:56)
--- NOTE | 2020-02-17 10:56 | P.PN ---
Progress Note - Text Progress Note Date: 02/17/20 Patient remained stable. There is no acute changes. Her abdomen soft. She is having bowel movement. Patient will be discharged home per the hospitalist service
--- NOTE | 2020-02-17 20:15 | PN ---
PROGRESS NOTE DATE OF SERVICE: 02/17/2020 REASON FOR FOLLOWUP: Urinary tract infection. INTERVAL HISTORY: Patient is currently afebrile. She is breathing comfortably. Denies having any chest pain. No shortness of breath. Occasional cough. Abdominal pain seems to have improved. No nausea, vomiting or diarrhea. PHYSICAL EXAMINATION: Blood pressure 151/79 with a pulse of 85, temperature 97.9. She is 96% on 2 L nasal cannula. General description is an elderly female lying in bed in no distress. Respiratory system: Unlabored breathing, decreased breath sounds at bases, no wheeze. Heart S1, S2. Regular rate and rhythm. Abdomen soft no tenderness. LABS: No new labs have been obtained today. DIAGNOSTIC IMPRESSION AND PLAN: Patient with Enterococcus faecalis urinary tract infection, covered with Macrobid, to continue to finish a 7-day course of therapy. Continue supportive care. MMODL / IJN: [id number] /
[2020-02-17] MEDS ORDERED: METOPROLOL TARTRATE 25 MG TAB PO STA (23:55)
--- NOTE | 2020-02-17 23:56 | P.DS ---
Providers Date of admission: 02/10/20 13:48 Expected date of discharge: 02/17/20 Attending physician: Miguel A Haji Consults: 02/09/20 16:00 Consult Physician Routine Consulting Provider: Ted Mckinney Consult Reason/Comments: Abd pain Do you want consulting provider notified?: Yes 02/10/20 11:21 Consult Physician Routine Consulting Provider: Mitch Francis Consult Reason/Comments: covid pneumonia? Do you want consulting provider notified?: Yes 02/10/20 12:53 Consult Physician Routine Consulting Provider: Timothy Shine Consult Reason/Comments: vaginal bleeding Do you want consulting provider notified?: Yes Primary care physician: Alejandro Navas Hospital Course: History of presenting complaint: This is a very pleasant [address] Navas. Chronic stable medical conditions include diabetes, hypertension, depression and anxiety, bilateral kidney stones, COPD stage III. patient is a resident of [facility] Does use a walker.both her and herself tested positive for COVID on January 21. was admitted to the hospital on January 27 and discharged on February 02. With COVID pneumonia.. admitted with features of abdominal pain with partial small bowel obstruction. some vaginal bleeding.patient is seen by Dr. Mckinney. Clinically doing better. Not for any further intervention. Also seen by Dr. Monroe. carried out a pelvic exam.does localized area off excoriation. Could be the source.also being treated for a UTI. Computed tomography scan of the abdomen showed severe fecal stasis. Patient has been given lactulose, soapsuds enema, milk and molasses enema, mag citrate.,. Patient tested positive for coronavirus. Finally after getting GoLYTELY had a large heavy bowel movement. Today-oral intake fair. Laying in bed. Comfortable. Pending rehab. Review of systems: Was done for constitutional, cardiovascular, GI, pulmonary. relevant finding as above Active Medications Acetaminophen (Acetaminophen Tab 325 Mg Tab) 650 mg PO BID PRN PRN Reason: Pain Last Admin: 02/17/20 02:26 Dose: 650 mg Documented by: Hydrocodone Bitart/Acetaminophen (Hydrocodone/Apap 7.5-325mg 1 Each Tab) 1 each PO BID ALBERTO Last Admin: 02/17/20 08:56 Dose: 1 each Documented by: Albuterol Sulfate (Albuterol Hfa Inhaler) 2 puff INHALATION RT-QID [facility] Last Admin: 02/17/20 19:50 Dose: 2 puff Documented by: Alprazolam (Alprazolam 0.25 Mg Tab) 0.25 mg PO TID PRN PRN Reason: Anxiety Last Admin: 02/16/20 21:57 Dose: 0.25 mg Documented by: Bupropion HCl (Bupropion Xl 150 Mg Tab.Er.24h) 150 mg PO DAILY [facility] Last Admin: 02/17/20 08:56 Dose: 150 mg Documented by: Enoxaparin Sodium (Enoxaparin 40 Mg/0.4 Ml Syringe) 40 mg SQ DAILY [facility] Last Admin: 02/17/20 08:55 Dose: 40 mg Documented by: Gabapentin (Gabapentin 100 Mg Cap) 100 mg PO BID [facility] Last Admin: 02/17/20 08:56 Dose: 100 mg Documented by: Hydromorphone HCl (Hydromorphone 0.5 Mg/0.5 Ml Syringe) 0.5 mg IVP Q6HR PRN PRN Reason: Pain Last Admin: 02/13/20 06:23 Dose: 0.5 mg Documented by: Sodium Chloride (Saline 0.9%) 1,000 mls @ 20 mls/hr IV .Q24H [facility] Last Admin: 02/16/20 17:55 Dose: 20 mls/hr Documented by: Metoprolol Tartrate (Metoprolol Tartrate 50 Mg Tab) 50 mg PO BID [facility] Last Admin: 02/17/20 08:56 Dose: 50 mg Documented by: Naloxone HCl (Naloxone 0.4 Mg/Ml 1 Ml Vial) 0.2 mg IV Q2M PRN PRN Reason: Opioid Reversal Nitrofurantoin Macrocrystals (Nitrofurantoin Monohyd/M-Cryst 100 Mg Cap) 100 mg PO BID [facility] Last Admin: 02/17/20 08:56 Dose: 100 mg Documented by: Oxybutynin Chloride (Oxybutynin Chloride 5 Mg Tab) 5 mg PO BID [facility] Last Admin: 02/17/20 08:56 Dose: 5 mg Documented by: Pantoprazole Sodium (Pantoprazole 40 Mg Tablet) 40 mg PO BID [facility] Last Admin: 02/17/20 08:56 Dose: 40 mg Documented by: Psyllium Hydrophilic Mucilloid (Psyllium Husk 100% 6 Gm Packet) 6 gm PO BID [facility] Last Admin: 02/17/20 08:54 Dose: 6 gm Documented by: Temazepam (Temazepam 15 Mg Cap) 15 mg PO HS PRN PRN Reason: Insomnia Last Admin: 02/13/20 02:21 Dose: 15 mg Documented by: Zinc Sulfate (Zinc Sulfate 220 Mg Cap) 220 mg PO DAILY [facility] Last Admin: 02/17/20 08:56 Dose: 220 mg Documented by: On examination: VITAL SIGNS: 97.9, 85, 18, 151 with 79, 96% on 2 L GENERAL APPEARANCE: Laying in bed, awake HEENT: Normal external appearance of nose and ear. Oral cavity normal EYES: Pupils equal. Conjunctiva normal. NECK: JVD not raised. Mass not palpable. RESPIRATORY: Respiratory effort normal. decreased breath sounds CARDIOVASCULAR: First and second sounds normal. No edema. ABDOMEN: Soft. Nontender no guarding rigidity Liver and spleen not palpable. No tenderness. No mass palpable. PSYCHIATRY: Alert and oriented x3. Mood and affect normal. INVESTIGATIONS, reviewed in the clinical context: White count 9.2 hemoglobin 9.3 potassium 4.9 creatinine 1.04 Computed tomography scan of the abdomen-fecal stasis Previous testing white count 19.5 hemoglobin 10.1 potassium 5.4 bun 37 creatinine 1.37 UA positive urine culture-Enterococcus faecalis Coronavirus PCR [February 11] detected Assessment:-- -Acute UTI with cystitis with Enterococcus faecalis-Macrobid per Dr. 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 -Disposition-IPD rehab plan: Increase Lopressor to 75 mg twice a day. Also had lisinopril hydrochlorothia zide 12/23.5 one tablet twice a day. Pending DC to [facility] rehab. Patient Condition at Discharge: Stable Plan - Discharge Summary Discharge Rx Participant: Yes New Discharge Prescriptions: No Action Oxybutynin Chloride 5 mg PO BID buPROPion XL [Wellbutrin XL] 150 mg PO DAILY Metoprolol Tartrate [Lopressor] 50 mg PO BID #60 tab Gabapentin [Neurontin] 100 mg PO BID Acetaminophen [Tylenol Arthritis] 650 mg PO BID PRN PRN Reason: Pain Omeprazole 20 mg PO DAILY HYDROcodone/APAP 7.5-325MG [[place] 7.5-325] 1 tab PO BID Albuterol Inhaler [Ventolin Hfa Inhaler] 2 puff INHALATION RT-QID #1 inhaler Zinc Sulfate [Orazinc] 220 mg PO DAILY #14 cap predniSONE See Taper PO DIRECTED Discharge Medication List Oxybutynin Chloride 5 mg PO BID 05/15/18 [History] buPROPion XL [Wellbutrin XL] 150 mg PO DAILY 05/15/18 [History] Metoprolol Tartrate [Lopressor] 50 mg PO BID #60 tab 09/01/18 [Rx] Gabapentin [Neurontin] 100 mg PO BID 05/25/19 [History] Acetaminophen [Tylenol Arthritis] 650 mg PO BID PRN 01/22/20 [History] HYDROcodone/APAP 7.5-325MG [[place] 7.5-325] 1 tab PO BID 01/22/20 [History] Omeprazole 20 mg PO DAILY 01/22/20 [History] Albuterol Inhaler [Ventolin Hfa Inhaler] 2 puff INHALATION RT-QID #1 inhaler 01/23/20 [Rx] Zinc Sulfate [Orazinc] 220 mg PO DAILY #14 cap 01/30/20 [Rx] predniSONE See Taper PO DIRECTED 02/09/20 [History] Follow up Appointment(s)/Referral(s): Savita Mckeon [NON-STAFF] - Alejandro Navas MD [Primary Care Provider] - 1-2 days
[2020-02-18] MEDS: PSYLLIUM HUSK 100% 6 GM PACKET PO SCH ×2 (00:17→08:48)
[2020-02-18] MEDS: ALPRAZolam 0.25 MG TAB PO PRN (00:17)
[2020-02-18] MEDS: HYDROcodone/APAP 7.5-325MG 1 EACH TAB PO SCH ×2 (00:17→08:49)
[2020-02-18] MEDS: OXYBUTYNIN CHLORIDE 5 MG TAB PO SCH ×2 (00:17→08:48)
[2020-02-18] MEDS: GABAPENTIN 100 MG CAP PO SCH ×2 (00:18→08:49)
[2020-02-18] MEDS: PANTOPRAZOLE 40 MG TABLET PO SCH ×2 (00:18→08:49)
[2020-02-18] MEDS: NITROFURANTOIN MONOHYD/M-CRYST 100 MG CAP PO SCH ×2 (00:18→08:52)
[2020-02-18] MEDS: SODIUM CHLORIDE 0.9% 1,000 ML IV SCH (01:09)
[2020-02-18] MEDS: LISINOPRIL-HCTZ 10-12.5 MG 1 EACH TAB PO SCH ×2 (01:22→08:51)
[2020-02-18] MEDS: HYDROmorphone 0.5 MG/0.5 ML SYRINGE IVP PRN (05:44)
[2020-02-18] MEDS: ALBUTEROL HFA INHALER INHALATION SCH ×3 (08:26→16:58)
[2020-02-18] MEDS: ZINC SULFATE 220 MG CAP PO SCH (08:48)
[2020-02-18] MEDS: ENOXAPARIN 40 MG/0.4 ML SYRINGE SQ SCH (08:51)
[2020-02-18] MEDS: buPROPion XL 150 MG TAB.ER.24H PO SCH (08:52)
[2020-02-18] MEDS ORDERED: METOPROLOL TARTRATE 25 MG TAB PO SCH (09:00)
[2020-02-18] MEDS: METOPROLOL TARTRATE 50 MG TAB PO SCH (10:14)
--- NOTE | 2020-02-18 11:21 | P.PN ---
Subjective Progress Note Date: 02/18/20 CHIEF COMPLAINT: Abdominal pain HISTORY OF PRESENT ILLNESS: Patient is being followed for abdominal pain and constipation. Her constipation is resolved. She denies abdominal pain. She reports having bowel movements. She denies any nausea vomiting. Afebrile. Patient is awaiting insurance authorization for placement PHYSICAL EXAM: VITAL SIGNS: Reviewed. GENERAL: Well-developed in no acute distress. HEENT: No sclera icterus. Extraocular movements grossly intact. Moist buccal mucosa. Head is atraumatic, normocephalic. ABDOMEN: Soft. Nondistended Nontender. NEUROLOGIC: Alert and oriented. Cranial nerves II through XII grossly intact. ASSESSMENT: 1. Abdominal pain with constipation and fecal stasis improved with GoLYTELY 2. Possible ileus 3. Constipation PLAN: -Patient is stable for discharge from surgical standpoint Physician Respiratory Physician note has been reviewed by physician. Signing provider agrees with the documented findings, assessment, and plan of care. Objective - Vital Signs Vital signs: Vital Signs Temp 98.2 F 02/18/20 09:00 Pulse 94 02/18/20 09:00 Resp 20 02/18/20 09:00 BP 140/64 02/18/20 09:00 Pulse Ox 96 02/18/20 09:00 Intake & Output 02/17/20 02/18/20 02/18/20 18:59 06:59 18:59 Intake Total 60 480 480 Output Total 620 1400 Balance -560 -920 480 Intake: Oral 60 480 480 Output: Urine 620 1400 Other: Voiding Method Bedpan Bedpan Diaper Diaper # Voids 650 - Labs CBC & Chem 7: 02/13/20 09:05 02/13/20 09:05
[2020-02-18] MEDS: ACETAMINOPHEN TAB 325 MG TAB PO PRN (12:24)
--- NOTE | 2020-02-18 14:41 | P.DS ---
Providers Date of admission: 02/10/20 13:48 Expected date of discharge: 02/18/20 Attending physician: Miguel A Haji Consults: 02/09/20 16:00 Consult Physician Routine Consulting Provider: Ted Mckinney Consult Reason/Comments: Abd pain Do you want consulting provider notified?: Yes 02/10/20 11:21 Consult Physician Routine Consulting Provider: Mitch Francis Consult Reason/Comments: covid pneumonia? Do you want consulting provider notified?: Yes 02/10/20 12:53 Consult Physician Routine Consulting Provider: Timothy Shine Consult Reason/Comments: vaginal bleeding Do you want consulting provider notified?: Yes Primary care physician: Alejandro Navas [facility] Course: History of presenting complaint: This is a very pleasant [address] Navas. Chronic stable medical conditions include diabetes, hypertension, depression and anxiety, bilateral kidney stones, COPD stage III. patient is a resident of [facility] Does use a walker.both her and herself tested positive for COVID on January 21. was admitted to the hospital on January 27 and discharged on February 02. With COVID pneumonia.. admitted with features of abdominal pain with partial small bowel obstruction. some vaginal bleeding.patient is seen by Dr. Mckinney. Clinically doing better. Not for any further intervention. Also seen by Dr. Monroe. carried out a pelvic exam.does localized area off excoriation. Could be the source.also being treated for a UTI-Enterococcus faecalis. Complete course of Macrobid.. Computed tomography scan of the abdomen showed severe fecal stasis. Patient has been given lactulose, soapsuds enema, milk and molasses enema, mag citrate.,. Patient recently was treated for bilateral COVID 19 pneumonia. -Now asymptomatic. Finally after getting GoLYTELY had a large heavy bowel movement. Today-doing well. Comfortable. Discussed with patient. Consultation: Dr. Mckinney from general surgery Dr. Francis from ID Dr. Monroe from OB GEN On examination: VITAL SIGNS: 98.2, 94, 20, 140/64, 96% room air GENERAL APPEARANCE: Laying in bed, awake HEENT: Normal external appearance of nose and ear. Oral cavity normal EYES: Pupils equal. Conjunctiva normal. NECK: JVD not raised. Mass not palpable. RESPIRATORY: Respiratory effort normal. decreased breath sounds CARDIOVASCULAR: First and second sounds normal. No edema. ABDOMEN: Soft. Nontender no guarding rigidity Liver and spleen not palpable. No tenderness. No mass palpable. PSYCHIATRY: Alert and oriented x3. Mood and affect normal. INVESTIGATIONS, reviewed in the clinical context: White count 9.2 hemoglobin 9.3 potassium 4.9 creatinine 1.04 Computed tomography scan of the abdomen-fecal stasis Previous testing white count 19.5 hemoglobin 10.1 potassium 5.4 bun 37 creatinine 1.37 UA positive urine culture-Enterococcus faecalis Coronavirus PCR [February 11] detected Assessment:-- -Acute UTI with cystitis with Enterococcus faecalis-Macrobid per Dr. 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 -Disposition-IPD rehab Disposition: [facility] Patient Condition at Discharge: Stable Plan - Discharge Summary Discharge Rx Participant: Yes New Discharge Prescriptions: No Action Oxybutynin Chloride 5 mg PO BID buPROPion XL [Wellbutrin XL] 150 mg PO DAILY Metoprolol Tartrate [Lopressor] 50 mg PO BID #60 tab Gabapentin [Neurontin] 100 mg PO BID Acetaminophen [Tylenol Arthritis] 650 mg PO BID PRN PRN Reason: Pain Omeprazole 20 mg PO DAILY HYDROcodone/APAP 7.5-325MG [[place] 7.5-325] 1 tab PO BID Albuterol Inhaler [Ventolin Hfa Inhaler] 2 puff INHALATION RT-QID #1 inhaler Zinc Sulfate [Orazinc] 220 mg PO DAILY #14 cap predniSONE See Taper PO DIRECTED Discharge Medication List Oxybutynin Chloride 5 mg PO BID 05/15/18 [History] buPROPion XL [Wellbutrin XL] 150 mg PO DAILY 05/15/18 [History] Metoprolol Tartrate [Lopressor] 50 mg PO BID #60 tab 09/01/18 [Rx] Gabapentin [Neurontin] 100 mg PO BID 05/25/19 [History] Acetaminophen [Tylenol Arthritis] 650 mg PO BID PRN 01/22/20 [History] HYDROcodone/APAP 7.5-325MG [[place] 7.5-325] 1 tab PO BID 01/22/20 [History] Omeprazole 20 mg PO DAILY 01/22/20 [History] Albuterol Inhaler [Ventolin Hfa Inhaler] 2 puff INHALATION RT-QID #1 inhaler 01/23/20 [Rx] Zinc Sulfate [Orazinc] 220 mg PO DAILY #14 cap 01/30/20 [Rx] predniSONE See Taper PO DIRECTED 02/09/20 [History] Follow up Appointment(s)/Referral(s): Savita Mckeon [NON-STAFF] - Alejandro Navas MD [Primary Care Provider] - 1-2 days
--- NOTE | 2020-02-18 14:56 | PN ---
PROGRESS NOTE DATE OF SERVICE: 02/18/2020 REASON FOR FOLLOWUP: Urinary tract infection. INTERVAL HISTORY: Patient is currently afebrile. The patient denies having any chest pain. No shortness of breath. No abdominal pain, no diarrhea. PHYSICAL EXAMINATION: Blood pressure 100/46, pulse of 94, temperature 98.2. She is 96% on 2 L nasal cannula. General description is an elderly female, lying in bed in no distress. RESPIRATORY SYSTEM: Unlabored breathing, clear to auscultation anteriorly. EXTREMITIES: No edema of the feet. LABS: No new labs have been obtained today. DIAGNOSTIC IMPRESSION AND PLAN: Patient with significant drug infection on Macrobid. PLAN: Finish course of therapy and close outpatient followup. MMODL / IJN: [id number] /
[2020-02-18 18:21] VITALS: BP 167/77; PULSE 87; RESP 18; TEMP 98
== END 2020-02-18 17:41 | DRG 689 ==
LOC: EC 09:50 → 1SOBS 14:22 → OBSVTOIN 02-10 13:48
PROVIDERS: ADMIT Hospitalist; ATTEND Hospitalist
DX: N30.90 Cystitis, unspecified without hematuria (principal); U07.1 COVID-19; N17.9 Acute kidney failure, unspecified; E87.1 Hypo-osmolality and hyponatremia; I42.8 Other cardiomyopathies; J84.9 Interstitial pulmonary disease, unspecified; K56.7 Ileus, unspecified; B95.2 Enterococcus as the cause of diseases classified elsewhere; D63.1 Anemia in chronic kidney disease; G43.909 Migraine, unspecified, not intractable, without status migrainosus; E11.22 Type 2 diabetes mellitus with diabetic chronic kidney disease; E11.42 Type 2 diabetes mellitus with diabetic polyneuropathy; E11.65 Type 2 diabetes mellitus with hyperglycemia; E66.9 Obesity, unspecified; E87.5 Hyperkalemia; F41.8 Other specified anxiety disorders; N93.9 Abnormal uterine and vaginal bleeding, unspecified; R26.9 Unspecified abnormalities of gait and mobility; N18.30 Chronic kidney disease, stage 3 unspecified; I12.9 Hypertensive chronic kidney disease with stage 1 through stage 4 chronic kidney disease, or unspecified chronic kidney disease; K59.89 Other specified functional intestinal disorders; M19.91 Primary osteoarthritis, unspecified site; Z79.899 Other long term (current) drug therapy; Z88.0 Allergy status to penicillin; Z88.2 Allergy status to sulfonamides; Z88.8 Allergy status to other drugs, medicaments and biological substances; Z98.84 Bariatric surgery status; Z87.442 Personal history of urinary calculi; Z83.3 Family history of diabetes mellitus; Z90.710 Acquired absence of both cervix and uterus; Z98.890 Other specified postprocedural states; Z82.3 Family history of stroke; Z82.49 Family history of ischemic heart disease and other diseases of the circulatory system; Z68.32 Body mass index [BMI] 32.0-32.9, adult
CPT/HCPCS: 36415; 71045; 71275; 74018; 74019; 74174; 74176; 80048; 80051; 80053; 81001; 82728; 83605; 83615; 83735; 84145; 84484; 85025; 85027; 85379; 85610; 85730; 86140; 87040; 87077; 87086; 87186; 87635; 93005; 94640; 96365; 96372; 96375; 99285

== ENCOUNTER 2020-02-27 23:50 | Inpatient (IN) | payer MEDICARE ==
--- NOTE | 2020-02-28 00:09 | ED ---
SOB HPI - General Stated Complaint: CRYSTAL Time Seen by Provider: 02/27/20 23:54 Source: RN notes reviewed, old records reviewed Limitations: no limitations - History of Present Illness Initial Comments: This is a 69-year-old female presented today for evaluation of shortness of breath. Patient has recent diagnosis of coronavirus states she has done well. Stop and indigestion but mainly is to continue breathing and weakness here in the ER. Denies fevers or pain Patients SOB has been on anf off for months MD Complaint: shortness of breath, cough, anxiety -: month(s) Radiation: back Severity: moderate Severity scale (1-10): 4 Consistency: constant Improves With: nothing Worsens With: exertion, movement Known History Of: recurrent pneumonia, other (CORONAVIRUS) Context: recent URI, recent illness Associated Symptoms: cough - Related Data Home Medications Medication Instructions Recorded Confirmed Oxybutynin Chloride 5 mg PO BID 05/15/18 02/09/20 buPROPion XL [Wellbutrin XL] 150 mg PO DAILY 05/15/18 02/09/20 Acetaminophen [Tylenol Arthritis] 650 mg PO BID PRN 01/22/20 02/09/20 Previous Rx's Medication Instructions Recorded Albuterol Inhaler [Ventolin Hfa 2 puff INHALATION RT-QID #1 inhaler 01/23/20 Inhaler] Zinc Sulfate [Orazinc] 220 mg PO DAILY #14 cap 01/30/20 Enoxaparin [Lovenox] 40 mg SQ DAILY syringe 02/18/20 Gabapentin [Neurontin] 100 mg PO BID #6 cap 02/18/20 HYDROcodone/APAP 7.5-325MG [[place] 1 tab PO BID #6 tab 02/18/20 7.5-325] Lisinopril-Hctz 10-12.5 mg 1 each PO BID tab 02/18/20 [Zestoretic 10-12.5] Melatonin 3 mg PO HS #1 tablet 02/18/20 Metoprolol Tartrate [Lopressor] 75 mg PO BID #60 tab 02/18/20 Nitrofurantoin Monohyd/M-Cryst 100 mg PO BID #4 cap 02/18/20 [Macrobid] Pantoprazole [Protonix] 40 mg PO BID tablet. 02/18/20 Psyllium Husk 100% [Metamucil 6 gm PO BID packet 02/18/20 Packet] Allergies Allergy/AdvReac Type Severity Reaction Status Date / Time meperidine [From Demerol] AdvReac Nausea & Verified 02/09/20 13:28 Vomiting Penicillins AdvReac "FALLS Verified 02/09/20 13:28 ALOT" Sulfa (Sulfonamide AdvReac Nausea & Verified 02/09/20 13:28 Antibiotics) Vomiting Review of Systems ROS Statement: Those systems with pertinent positive or pertinent negative responses have been documented in the HPI. ROS Other: All systems not noted in ROS Statement are negative. Past Medical History Past Medical History: Diabetes Mellitus, Hypertension, Neurologic Disorder Additional Past Medical History / Comment(s): NEUROPATHY, MIGRAINES, fractured right shoulder. CURRENTLY ON ANTIBIOTICS 12/25/19 FOR UTI-INSTRUCTED TO CALL DR. TUMMA. MOE. UTI-WAS ADMITTED 05/28/19 FOR IV ANTIBIOTIC TX FOR UTI WITH MDRO History of Any Multi-Drug Resistant Organisms: Other MDRO Past Surgical History: Bariatric Surgery, Bladder Surgery, Hysterectomy Additional Past Surgical History / Comment(s): ORAL SURGERY. COLONOSCOPY. LAP BAND THEN HAD BARIATRIC SURGERY;. bladder surgery may have been for a benign cyst but is not sure. 16 LBS ABD. TISSUE REMOVED Past Anesthesia/Blood Transfusion Reactions: No Reported Reaction Smoking Status: Never smoker - Past Family History Mother Family Medical History: Diabetes Mellitus Additional Family Medical History / Comment(s): At [facility] with UTI. Father Family Medical History: CVA/TIA, Diabetes Mellitus Sister(s) Family Medical History: Deep Vein Thrombosis (DVT) General Exam General appearance: alert, in no apparent distress Head exam: Present: atraumatic, normocephalic, normal inspection Eye exam: Present: normal appearance, PERRL, EOMI. Absent: scleral icterus, conjunctival injection, periorbital swelling ENT exam: Present: normal exam, mucous membranes moist Neck exam: Present: normal inspection. Absent: tenderness, meningismus, lymphadenopathy Respiratory exam: Present: decreased breath sounds, prolonged expiratory. Absent: respiratory distress, wheezes, rales, rhonchi, stridor Cardiovascular Exam: Present: regular rate, normal rhythm, normal heart sounds. Absent: systolic murmur, diastolic murmur, rubs, gallop, clicks GI/Abdominal exam: Present: soft, normal bowel sounds. Absent: distended, tenderness, guarding, rebound, rigid Extremities exam: Present: normal inspection, full ROM, normal capillary refill. Absent: tenderness, pedal edema, joint swelling, calf tenderness Back exam: Present: normal inspection Neurological exam: Present: alert, oriented X3, CN II-XII intact Psychiatric exam: Present: normal affect, normal mood Skin exam: Present: warm, dry, intact, normal color. Absent: rash Course Vital Signs 02/27/20 02/28/20 23:55 01:05 Temperature 98.6 F Pulse Rate 80 82 Respiratory 19 19 Rate Blood Pressure 98/63 96/63 O2 Sat by Pulse 100 99 Oximetry - Reevaluation(s) Reevaluation #1: 02/28/20 01:47 medical record is reviewed Reevaluation #2: 02/28/20 01:47 no distress will admit patient for pna Reevaluation #3: 02/28/20 01:47 patient informed of results and questions anaswered Medical Decision Making - Medical Decision Making 69 female to the ED for SOB, weakness, history of COVID, patient appears to hasve superimposed pneumonia. - Lab Data Result diagrams: 02/28/20 00:21 02/28/20 00:21 Lab Results 02/28/20 02/28/20 02/28/20 Range/Units 00:21 00:21 00:21 WBC 6.7 (3.8-10.6) k/uL RBC 3.14 L (3.80-5.40) m/uL Hgb 8.5 L (11.4-16.0) gm/dL Hct 28.1 L (34.0-46.0) % MCV 89.4 (80.0-100.0) fL MCH 27.0 (25.0-35.0) pg MCHC 30.2 L (31.0-37.0) g/dL RDW 16.5 H (11.5-15.5) % Plt Count 373 (150-450) k/uL MPV 8.0 Neutrophils % 64 % Lymphocytes % 23 % Monocytes % 7 % Eosinophils % 2 % Basophils % 1 % Neutrophils # 4.3 (1.3-7.7) k/uL Lymphocytes # 1.6 (1.0-4.8) k/uL Monocytes # 0.5 (0-1.0) k/uL Eosinophils # 0.2 (0-0.7) k/uL Basophils # 0.1 (0-0.2) k/uL Hypochromasia Marked Anisocytosis Slight PT 10.3 (9.0-12.0) sec INR 1.0 (<1.2) APTT 28.2 (22.0-30.0) sec Sodium 132 L (137-145) mmol/L Potassium 4.9 (3.5-5.1) mmol/L Chloride 97 L (98-107) mmol/L Carbon Dioxide 30 (22-30) mmol/L Anion Gap 5 mmol/L BUN 36 H (7-17) mg/dL Creatinine 1.65 H (0.52-1.04) mg/dL Est GFR (CKD-EPI)AfAm 36 (>60 ml/min/1.73 sqM) Est GFR (CKD-EPI)NonAf 32 (>60 ml/min/1.73 sqM) Glucose 123 H (74-99) mg/dL Plasma Lactic Acid Christ (0.7-2.0) mmol/L Calcium 8.2 L (8.4-10.2) mg/dL Magnesium 2.0 (1.6-2.3) mg/dL Total Bilirubin 0.3 (0.2-1.3) mg/dL AST 20 (14-36) U/L ALT 10 (4-34) U/L Alkaline Phosphatase 153 H (38-126) U/L Lactate Dehydrogenase 482 (313-618) U/L C-Reactive Protein 82.7 H (<10.0) mg/L Total Protein 5.4 L (6.3-8.2) g/dL Albumin 2.8 L (3.5-5.0) g/dL 02/28/20 Range/Units 00:21 WBC (3.8-10.6) k/uL RBC (3.80-5.40) m/uL Hgb (11.4-16.0) gm/dL Hct (34.0-46.0) % MCV (80.0-100.0) fL MCH (25.0-35.0) pg MCHC (31.0-37.0) g/dL RDW (11.5-15.5) % Plt Count (150-450) k/uL MPV Neutrophils % % Lymphocytes % % Monocytes % % Eosinophils % % Basophils % % Neutrophils # (1.3-7.7) k/uL Lymphocytes # (1.0-4.8) k/uL Monocytes # (0-1.0) k/uL Eosinophils # (0-0.7) k/uL Basophils # (0-0.2) k/uL Hypochromasia Anisocytosis PT (9.0-12.0) sec INR (<1.2) APTT (22.0-30.0) sec Sodium (137-145) mmol/L Potassium (3.5-5.1) mmol/L Chloride (98-107) mmol/L Carbon Dioxide (22-30) mmol/L Anion Gap mmol/L BUN (7-17) mg/dL Creatinine (0.52-1.04) mg/dL Est GFR (CKD-EPI)AfAm (>60 ml/min/1.73 sqM) Est GFR (CKD-EPI)NonAf (>60 ml/min/1.73 sqM) Glucose (74-99) mg/dL Plasma Lactic Acid Christ 0.7 (0.7-2.0) mmol/L Calcium (8.4-10.2) mg/dL Magnesium (1.6-2.3) mg/dL Total Bilirubin (0.2-1.3) mg/dL AST (14-36) U/L ALT (4-34) U/L Alkaline Phosphatase (38-126) U/L Lactate Dehydrogenase (313-618) U/L C-Reactive Protein (<10.0) mg/L Total Protein (6.3-8.2) g/dL Albumin (3.5-5.0) g/dL - EKG Data -: EKG Interpreted by Me (EKG shows sinus rhythm 80 VA 166 QRS 80 QTC 415) - Radiology Data Radiology results: report reviewed (CXR is positive for pneumonia), image reviewed Disposition Clinical Impression: Community acquired pneumonia, Generalized weakness, Pneumonia Narrative: HIstory of COVID Disposition: ADMITTED IP TO THIS [facility] Condition: Fair Is patient prescribed a controlled substance at d/c from ED?: No Referrals: Alejandro Navas MD [Primary Care Provider] - 1-2 days
[2020-02-28 00:46] LABS: Anisocytosis Slight; Basophils # (A) 0.1 k/uL (0-0.2); Basophils % (A) 1 %; Eosinophils # (A) 0.2 k/uL (0-0.7); Eosinophils % (A) 2 %; HCT 28.1 % (34.0-46.0); HGB 8.5 gm/dL (11.4-16.0); Hypochromasia Marked; Lymphocytes # (A) 1.6 k/uL (1.0-4.8); Lymphocytes % (A) 23 %; MCHC 30.2 g/dL (31.0-37.0); MCV 89.4 fL (80.0-100.0); Monocytes # (A) 0.5 k/uL (0-1.0); Monocytes % (A) 7 %; Neutrophils # (A) 4.3 k/uL (1.3-7.7); Neutrophils % (A) 64 %; Platelet Count 373 k/uL (150-450); RBC 3.14 m/uL (3.80-5.40); RDW 16.5 % (11.5-15.5); WBC 6.7 k/uL (3.8-10.6)
[2020-02-28 00:51] LABS: Partial Thromboplastin Time 28.2 sec (22.0-30.0); Prothrombin Time 10.3 sec (9.0-12.0)
--- NOTE | 2020-02-28 00:52 | XR ---
EXAM: XR Chest, 1 View CLINICAL HISTORY: ITS.REASON XR Reason: Suspected COVID-19 pneumonia TECHNIQUE: Frontal view of the chest. COMPARISON: Chest x-ray date 01/28/2020 FINDINGS: Lungs: See below. Pleural space: Bibasilar opacities likely representing combination of pleural effusions and atelectasis. Pneumonia is not excluded. Heart: Unremarkable. Mediastinum: Unremarkable. Bones/joints: Unremarkable. IMPRESSION: Bibasilar opacities likely representing combination of pleural effusions and atelectasis. Pneumonia is not excluded.
[2020-02-28 01:17] LABS: Albumin 2.8 g/dL (3.5-5.0); C Reactive Protein 82.7 mg/L (<10.0); Calcium 8.2 mg/dL (8.4-10.2); Potassium 4.9 mmol/L (3.5-5.1); Total Bilirubin 0.3 mg/dL (0.2-1.3); Total Protein 5.4 g/dL (6.3-8.2)
[2020-02-28] MEDS ORDERED: PNEUMONIA PROTOCOL UTILIZED 1 EACH MISC PO PRN (01:44)
[2020-02-28] MEDS ORDERED: AZITHROMYCIN 500 MG in SODIUM CHLORIDE 0.9% 250 ML IVPB STA (01:44)
[2020-02-28] MEDS ORDERED: CEFEPIME 2 GM in SODIUM CHLORIDE 0.9% 100 ML IVPB STA (01:44)
[2020-02-28] MEDS ORDERED: IPRATROPIUM-ALBUTEROL 3 ML NEB INHALATION PRN (01:44)
[2020-02-28] MEDS: SODIUM CHLORIDE 0.9% 1,000 ML IV SCH ×3 (02:46→19:32)
[2020-02-28] MEDS ORDERED: ACETAMINOPHEN TAB 325 MG TAB PO STA (03:32)
[2020-02-28 07:17] LABS: Glucose,Whole Blood 130 mg/dL (75-99)
[2020-02-28 07:30] LABS: Anisocytosis Slight; Basophils % (A) 0 %; Eosinophils # (A) 0.1 k/uL (0-0.7); Eosinophils % (A) 2 %; HCT 26.2 % (34.0-46.0); HGB 7.8 gm/dL (11.4-16.0); Hypochromasia Marked; Lymphocytes # (A) 1.5 k/uL (1.0-4.8); Lymphocytes % (A) 23 %; MCH 27.2 pg (25.0-35.0); MCV 90.8 fL (80.0-100.0); Mean Platelet Volume 7.9; Monocytes # (A) 0.6 k/uL (0-1.0); Monocytes % (A) 9 %; Neutrophils # (A) 4.1 k/uL (1.3-7.7); Neutrophils % (A) 62 %; Platelet Count 319 k/uL (150-450); RBC 2.88 m/uL (3.80-5.40); RDW 16.4 % (11.5-15.5); WBC 6.5 k/uL (3.8-10.6)
[2020-02-28] MEDS ORDERED: ALBUTEROL HFA INHALER INHALATION PRN (08:25)
[2020-02-28] MEDS: ENOXAPARIN 40 MG/0.4 ML SYRINGE SQ SCH (09:30)
[2020-02-28] MEDS: CEFEPIME 2 GM in SODIUM CHLORIDE 0.9% 100 ML IVPB SCH ×2 (09:31→17:10)
[2020-02-28] MEDS ORDERED: LISINOPRIL-HCTZ 10-12.5 MG 1 EACH TAB PO SCH (11:11)
[2020-02-28] MEDS ORDERED: MAGNESIUM HYDROXIDE 2,400 MG/10 ML CUP PO PRN (11:11)
[2020-02-28] MEDS ORDERED: bisacodyL 10 MG SUPP RECTAL PRN (11:11)
[2020-02-28 11:38] LABS: Glucose,Whole Blood 123 mg/dL (75-99)
[2020-02-28 11:48] LABS: African American GFR (CKD) 37.7 (60.0-200.0); Anion Gap 6.9 mmol/L (4.00-12.00); BUN/Creat Ratio 22.5 Ratio (12.00-20.00); Calcium 7.8 mg/dL (8.7-10.3); Carbon Dioxide 28.1 mmol/L (21.6-31.8); Non-African American GFR(CKD) 32.5 (60.0-200.0); Potassium 4.6 mmol/L (3.5-5.5)
[2020-02-28] MEDS ORDERED: ALBUTEROL NEBULIZED 2.5 MG/3 ML INHALATION SCH (12:00)
[2020-02-28] MEDS: METOPROLOL TARTRATE 25 MG TAB PO SCH ×2 (12:20→17:04)
[2020-02-28] MEDS: HYDROcodone/APAP 7.5-325MG 1 EACH TAB PO SCH ×2 (12:26→19:31)
[2020-02-28] MEDS: buPROPion XL 150 MG TAB.ER.24H PO SCH (12:26)
[2020-02-28] MEDS: PANTOPRAZOLE 40 MG TABLET PO SCH ×2 (12:26→17:10)
[2020-02-28] MEDS: OXYBUTYNIN CHLORIDE 5 MG TAB PO SCH ×2 (12:26→17:09)
[2020-02-28] MEDS: GABAPENTIN 100 MG CAP PO SCH ×2 (12:26→19:32)
[2020-02-28] MEDS: ALBUTEROL HFA INHALER INHALATION SCH ×3 (12:30→21:00)
[2020-02-28] MEDS: ZINC SULFATE 220 MG CAP PO SCH (17:09)
[2020-02-28] MEDS: PSYLLIUM HUSK 100% 6 GM PACKET PO SCH (17:09)
[2020-02-28 17:15] LABS: Glucose,Whole Blood 126 mg/dL (75-99)
[2020-02-28] MEDS: MELATONIN 3 MG TABLET PO SCH (19:31)
[2020-02-28 20:25] LABS: Glucose,Whole Blood 169 mg/dL (75-99)
--- NOTE | 2020-02-28 20:46 | P.HPIM ---
History of Present Illness H&P Date: 02/28/20 Chief Complaint: Dry cough History of presenting complaint: This is a very pleasant [address] Navas. Chronic stable medical conditions include diabetes, hypertension, depression and anxiety, bilateral kidney stones, COPD , CK D stage III. patient is a resident of [facility] Does use a walker.both her and herself tested positive for COVID on January 21. was admitted to the hospital on January 27 and discharged on February 02. With COVID pneumonia.. February 08-admitted with features of abdominal pain with partial small bowel obstruction. some vaginal bleeding.patient is seen by Dr. Mckinney. Clinically doing better. Not for any further intervention. Also seen by Dr. Monroe. carried out a pelvic exam.- localized area of excoriation. Could be the source.also being treated for a UTI-Enterococcus faecalis. Complete course of Macrobid.. Computed tomography scan of the abdomen showed severe fecal stasis. Had a good response to laxative. February 16-discharged to [facility] for rehab. Now readmitted from the [facility]. dry cough. No fever no chills. Feels very tired. Decreased appetite. Review of systems: GEN.: Tired EYES: None HEENT: None NECK: None RESPIRATORY: Some dry cough mild shortness of breath CARDIOVASCULAR: None GASTROINTESTINAL: None GENITOURINARY: None MUSCULOSKELETAL: Joint pains LYMPHATICS: None HEMATOLOGICAL: None PSYCHIATRY: None NEUROLOGICAL: None Past medical history to include: Diabetes, hypertension, depression, anxiety, electrical kidney stones, COPD, CK D stage III, uses a walker, COVID 19 pneumonia Social history: Currently at [facility]-otherwise lives at [facility] . Electric wheelchair. Has a supportive dog called Isabela On examination: VITAL SIGNS: 98.6, 18, 19, 98/63, 100% on 2 L GENERAL APPEARANCE: Laying in bed, awake HEENT: Normal external appearance of nose and ear. Oral cavity normal EYES: Pupils equal. Conjunctiva normal. NECK: JVD not raised. Mass not palpable. RESPIRATORY: Respiratory effort normal. decreased breath sounds CARDIOVASCULAR: First and second sounds normal. No edema. ABDOMEN: Soft. Nontender no guarding rigidity Liver and spleen not palpable. No tenderness. No mass palpable. PSYCHIATRY: Alert and oriented x3. Mood and affect normal. INVESTIGATIONS, reviewed in the clinical context: White count 7.6 hemoglobin 7.8, BUN 32 creatinine 1.6 EKG tracing personally reviewed by me-normal sinus rhythm Chest x-ray film personally reviewed by me-right basilar infiltrate Previous testing: February 19: Creatinine 1.1 Assessment:-- -Acute kidney injury from decreased oral intake and prerenal, causing patient to be weak diet has to neck -Right lower lobe pneumonia, suspect gram-negative orgasm -Recent treated COVID 19 pneumonia -diabetes mellitus type 2, -Hypotension from volume loss -History of-essential hypertension, -chronic 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 -diabetic peripheral neuropathy -anxiety depression otherwise specified -Primary osteoarthritis -Chronic gait dysfunction uses a walker Plan: Patient has been placed on IV fluids. Will DC the Zestoretic. Other medications to be resumed. Care was discussed with the patient. Questions answered. Repeat BMP the morning. Patient also place an IV cefepime. Zithromax. Past Medical History Past Medical History: Diabetes Mellitus, Hypertension, Neurologic Disorder Additional Past Medical History / Comment(s): NEUROPATHY, MIGRAINES, fractured right shoulder. CURRENTLY ON ANTIBIOTICS 12/25/19 FOR UTI-INSTRUCTED TO CALL DR. TUMMA. MOE. UTI-WAS ADMITTED 05/28/19 FOR IV ANTIBIOTIC TX FOR UTI WITH MDRO History of Any Multi-Drug Resistant Organisms: Other MDRO Past Surgical History: Bariatric Surgery, Bladder Surgery, Hysterectomy Additional Past Surgical History / Comment(s): ORAL SURGERY. COLONOSCOPY. LAP BAND THEN HAD BARIATRIC SURGERY;. bladder surgery may have been for a benign cyst but is not sure. 16 LBS ABD. TISSUE REMOVED Past Anesthesia/Blood Transfusion Reactions: No Reported Reaction Past Psychological History: Anxiety, Depression Additional Psychological History / Comment(s): Isabela is support dog. Lives with spouse, [place] [facility] for long distance. Smoking Status: Never smoker Past Alcohol Use History: None Reported Additional Past Alcohol Use History / Comment(s): TRIED SMOKING AT AGE 18 DID LIKE IT Past Drug Use History: None Reported - Past Family History Mother Family Medical History: Diabetes Mellitus Additional Family Medical History / Comment(s): At [facility] with UTI. Father Family Medical History: CVA/TIA, Diabetes Mellitus Sister(s) Family Medical History: Deep Vein Thrombosis (DVT) Medications and Allergies Home Medications Medication Instructions Recorded Confirmed Type Oxybutynin Chloride 5 mg PO BID@0800,1700 05/15/18 02/28/20 History buPROPion XL [Wellbutrin XL] 150 mg PO DAILY@0800 05/15/18 02/28/20 History Acetaminophen [Tylenol Arthritis] 650 mg PO BID PRN 01/22/20 02/28/20 History Albuterol Inhaler [Ventolin Hfa 2 puff INHALATION RT-QID #1 inhaler 01/23/20 02/28/20 Rx Inhaler] Enoxaparin [Lovenox] 40 mg SQ DAILY@0802/28/20 02/28/20 History Gabapentin [Neurontin] 100 mg PO BID@0800,209902/28/20 02/28/20 History HYDROcodone/APAP 7.5-325MG [[place] 1 tab PO BID@0800,199902/28/20 02/28/20 History 7.5-325] Lisinopril-Hctz 10-12.5 mg 1 tab PO BID@0800,169902/28/20 02/28/20 History [Zestoretic 10-12.5] Magnesium Hydroxide [Milk of 2,400 mg PO DAILY PRN 02/28/20 02/28/20 History Magnesia] Melatonin 3 mg PO HS@209902/28/20 02/28/20 History Metoprolol Tartrate [Lopressor] 75 mg PO BID@0800,169902/28/20 02/28/20 History Na Phos,M-B/Na Phos,Di-Ba [Fleet 133 ml RECTAL DAILY PRN 02/28/20 02/28/20 History Adult] Pantoprazole [Protonix] 40 mg PO BID@0800,169902/28/20 02/28/20 History Psyllium Husk 100% [Metamucil 6 gm PO BID@0800,169902/28/20 02/28/20 History Packet] Zinc Sulfate [Orazinc] 220 mg PO DAILY@169902/28/20 02/28/20 History bisacodyL [Dulcolax] 10 mg RECTAL DAILY PRN 02/28/20 02/28/20 History Allergies Allergy/AdvReac Type Severity Reaction Status Date / Time meperidine [From Demerol] AdvReac Nausea & Verified 02/28/20 08:18 Vomiting Penicillins AdvReac "FALLS Verified 02/28/20 08:18 ALOT" Sulfa (Sulfonamide AdvReac Nausea & Verified 02/28/20 08:18 Antibiotics) Vomiting Physical Exam Vitals: Vital Signs Temp Pulse Pulse Resp BP BP Pulse Ox 02/28/20 10:08 97.7 F 79 20 98/62 99 02/28/20 06:10 97.3 F L 75 16 84/51 99 02/28/20 04:20 20 02/28/20 04:02 98.3 F 86 20 96/61 98 02/28/20 02:54 98.7 F 84 19 90/60 100 02/28/20 01:05 82 19 96/63 99 02/27/20 23:55 98.6 F 80 19 98/63 100 Intake and Output 02/27/20 02/28/20 02/28/20 22:59 06:59 14:59 Intake Total 300 300 Balance 300 300 Intake: Oral 300 300 Other: Voiding Method Diaper Incontinent Weight 94.347 kg Results CBC & Chem 7: 02/28/20 07:06 02/28/20 07:06 Labs: Abnormal Lab Results - Last 24 Hours (Table) 02/28/20 02/28/20 02/28/20 Range/Units 00:21 00:21 07:06 RBC 3.14 L 2.88 L (3.80-5.40) m/uL Hgb 8.5 L 7.8 L (11.4-16.0) gm/dL Hct 28.1 L 26.2 L (34.0-46.0) % MCHC 30.2 L 30.0 L (31.0-37.0) g/dL RDW 16.5 H 16.4 H (11.5-15.5) % Sodium 132 L (137-145) mmol/L Chloride 97 L (98-107) mmol/L BUN 36 H (7-17) mg/dL Creatinine 1.65 H (0.52-1.04) mg/dL Glucose 123 H (74-99) mg/dL POC Glucose (mg/dL) (75-99) mg/dL Calcium 8.2 L (8.4-10.2) mg/dL Alkaline Phosphatase 153 H (38-126) U/L C-Reactive Protein 82.7 H (<10.0) mg/L Total Protein 5.4 L (6.3-8.2) g/dL Albumin 2.8 L (3.5-5.0) g/dL 02/28/20 Range/Units 07:15 RBC (3.80-5.40) m/uL Hgb (11.4-16.0) gm/dL Hct (34.0-46.0) % MCHC (31.0-37.0) g/dL RDW (11.5-15.5) % Sodium (137-145) mmol/L Chloride (98-107) mmol/L BUN (7-17) mg/dL Creatinine (0.52-1.04) mg/dL Glucose (74-99) mg/dL POC Glucose (mg/dL) 130 H (75-99) mg/dL Calcium (8.4-10.2) mg/dL Alkaline Phosphatase (38-126) U/L C-Reactive Protein (<10.0) mg/L Total Protein (6.3-8.2) g/dL Albumin (3.5-5.0) g/dL
[2020-02-29] MEDS: ACETAMINOPHEN TAB 325 MG TAB PO PRN ×4 (00:10→23:56)
[2020-02-29] MEDS ORDERED: AZITHROMYCIN 500 MG in SODIUM CHLORIDE 0.9% 250 ML IVPB SCH (01:44)
--- NOTE | 2020-02-29 02:00 | CONS ---
CONSULTATION DATE OF SERVICE: 02/28/2020 REASON FOR CONSULTATION: COVID-19. 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 At that time, the patient also had component of Enterococcus faecalis urinary tract infection treated with Macrobid. Patient subsequently was transferred to [facility] for rehab on February 16. The patient has now been brought back to the hospital for evaluation of generalized weakness and no energy. When asked specifically why she came to the hospital, patient mentioned that she was told that she did have an infection and needed to go back to the hospital. The patient at the time of my evaluation denies having any fever or chills. Denies having any chest pain or shortness of breath, minimal cough. Did mention did have some lower abdominal pain that seemed to have resolved as of now. Denies any nausea, vomiting or diarrhea. The patient on presentation to the hospital was afebrile. The patient did have a normal white count. She did have elevated BUN and creatinine. Chest x-ray with bibasilar atelectasis with concern for possible pneumonia. She was started on cefepime and Zithromax. Infectious Disease was consulted for further management of antibiotic therapy and concern for COVID-19 that was apparently initially diagnosed on January 21, more than a month ago. REVIEW OF SYSTEMS: Positive points have been mentioned in HPI. Rest of systems are negative. PAST MEDICAL HISTORY: Diabetes mellitus, hypertension, migraine headache, neuropathy, COVID-19 pneumonia, Enterococcus urinary tract infection, possible ileus. PAST SURGICAL HISTORY: Bariatric surgery, bladder surgery, hysterectomy and colonoscopy. SOCIAL HISTORY: No history of smoking, drinking or drug use. FAMILY HISTORY: Father history of diabetes and CVA. ALLERGIES: Allergies to PENICILLIN and MEPERIDINE. MEDICATIONS: Medications currently include the patient is on Tylenol, [place], Ventolin, Zithromax, Dulcolax, Wellbutrin, cefepime 2 grams q.8. She is on Lovenox, Neurontin, melatonin, Lopressor, Ditropan, Protonix, Metamucil, zinc. PHYSICAL EXAMINATION: Blood pressure is 133/66, pulse of 88, temperature 99. She is 100% on 2 L nasal cannula. General description is a middle-aged female lying in bed in no distress. HEENT: Examination shows pallor, no scleral icterus. Oral mucous membrane is dry. NECK: Trachea central. No thyromegaly. LUNGS: Unlabored breathing, decreased intensity of breath sounds. No wheeze. HEART: S1, S2. Regular rate and rhythm. ABDOMEN: Soft, no guarding, no rigidity. No organomegaly. EXTREMITIES: No edema of feet. SKIN EXAMINATION: No rash or mass palpable. NEUROLOGICAL: Patient is awake, alert, oriented x3. Mood and affect normal. LABS: Hemoglobin 7.8, white count 6.5, BUN of 36, creatinine 1.6. Electrolytes have been normal. Liver enzymes normal. CRP 82.7. DIAGNOSTIC IMPRESSION: 1. Patient admitted to the hospital with generalized weakness and a cough in this patient recently treated in this facility for urinary tract infection. The patient did have a mild cough, but no sputum with a chest x-ray finding possible atelectasis, pneumonia less likely but not entirely excluded. 2. Recent Enterococcus faecalis urinary tract infection. PLAN: 1. We will try to obtain sputum for Gram stain and culture. 2. Obtain CRP and procalcitonin level. 3. Recheck urine and culture. 4. Continue with cefepime. Dose to be adjusted with kidney function and no need for the Zithromax, to be discontinued. 5. We will follow on clinical condition and further adjust medication if needed. Thank you for this consultation. Will follow this patient along with you. MMODL / IJN: [id number] /
[2020-02-29] MEDS: CEFEPIME 2 GM in SODIUM CHLORIDE 0.9% 100 ML IVPB SCH ×3 (02:39→17:49)
[2020-02-29 06:40] LABS: Anisocytosis Slight; Basophils # (A) 0.1 k/uL (0-0.2); Basophils % (A) 1 %; Eosinophils # (A) 0.1 k/uL (0-0.7); Eosinophils % (A) 2 %; HCT 30.2 % (34.0-46.0); HGB 9.2 gm/dL (11.4-16.0); Hypochromasia Marked; Lymphocytes # (A) 1.3 k/uL (1.0-4.8); Lymphocytes % (A) 23 %; MCH 27.1 pg (25.0-35.0); MCHC 30.4 g/dL (31.0-37.0); MCV 89.2 fL (80.0-100.0); Mean Platelet Volume 7.9; Monocytes # (A) 0.4 k/uL (0-1.0); Monocytes % (A) 7 %; Neutrophils # (A) 3.8 k/uL (1.3-7.7); Neutrophils % (A) 66 %; Platelet Count 276 k/uL (150-450); RBC 3.38 m/uL (3.80-5.40); RDW 16.5 % (11.5-15.5); WBC 5.8 k/uL (3.8-10.6)
[2020-02-29 07:03] LABS: Glucose,Whole Blood 121 mg/dL (75-99)
--- NOTE | 2020-02-29 08:11 | XR ---
EXAMINATION TYPE: XR chest 1V portable DATE OF EXAM: 02/29/2020 COMPARISON: 02/28/2020 INDICATION: Covid TECHNIQUE: Single frontal view of the chest is obtained. FINDINGS: The heart size is large. The pulmonary vasculature is normal. There is a moderate right pleural effusion. Mild bibasilar infiltrates are present. IMPRESSION: 1. Increasing moderate bilateral pleural effusion.
[2020-02-29] MEDS: ALBUTEROL HFA INHALER INHALATION SCH ×4 (09:11→19:32)
[2020-02-29] MEDS: buPROPion XL 150 MG TAB.ER.24H PO SCH (09:16)
[2020-02-29] MEDS: OXYBUTYNIN CHLORIDE 5 MG TAB PO SCH ×2 (09:16→16:15)
[2020-02-29] MEDS: PANTOPRAZOLE 40 MG TABLET PO SCH ×2 (09:17→16:15)
[2020-02-29] MEDS: HYDROcodone/APAP 7.5-325MG 1 EACH TAB PO SCH ×2 (09:17→19:23)
[2020-02-29] MEDS: METOPROLOL TARTRATE 25 MG TAB PO SCH ×2 (09:17→16:15)
[2020-02-29] MEDS: GABAPENTIN 100 MG CAP PO SCH ×2 (09:17→20:22)
[2020-02-29] MEDS: PSYLLIUM HUSK 100% 6 GM PACKET PO SCH ×2 (09:18→16:16)
[2020-02-29] MEDS: ENOXAPARIN 40 MG/0.4 ML SYRINGE SQ SCH (09:18)
[2020-02-29] MEDS: SODIUM CHLORIDE 0.9% 1,000 ML IV SCH ×2 (09:19→16:17)
[2020-02-29 09:34] LABS: African American GFR (CKD) 48.5 (60.0-200.0); Anion Gap 9.9 mmol/L (4.00-12.00); BUN/Creat Ratio 22.31 Ratio (12.00-20.00); C Reactive Protein 5.8 mg/dL (0.0-0.8); Calcium 8.1 mg/dL (8.7-10.3); Carbon Dioxide 23.1 mmol/L (21.6-31.8); Non-African American GFR(CKD) 41.8 (60.0-200.0); Potassium 5.1 mmol/L (3.5-5.5)
[2020-02-29 11:16] LABS: Glucose,Whole Blood 146 mg/dL (75-99)
[2020-02-29 12:06] LABS: Appearance,Urine Cloudy (Clear); Bacteria,Urine Rare /hpf; Bilirubin,Urine Negative (Negative); Blood,Urine Trace (Negative); Color,Urine Light Yellow; Glucose,Urine (UA) Negative (Negative); Hyaline Casts,Urine 1 /lpf (0-2); Ketones,Urine Negative (Negative); Leukocyte Esterase,Urine Large (Negative); Mucus,Urine Rare /hpf; Nitrite,Urine Negative (Negative); Protein,Urine Trace (Negative); RBC,Urine 15 /hpf (0-5); Specific Gravity,Urine 1.015 (1.001-1.035); Squamous Epithelial Cell,Urine 2 /hpf (0-4); Urobilinogen,Urine <2.0 mg/dL (<2.0); WBC,Urine >182 /hpf (0-5)
[2020-02-29] MEDS: ZINC SULFATE 220 MG CAP PO SCH (16:15)
[2020-02-29 16:44] LABS: Glucose,Whole Blood 110 mg/dL (75-99)
--- NOTE | 2020-02-29 18:15 | P.PN ---
Progress Note - Text Progress Note Date: 02/29/20 Chief Complaint: Dry cough History of presenting complaint: This is a very pleasant [address] Navas. Chronic stable medical conditions include diabetes, hypertension, depression and anxiety, bilateral kidney stones, COPD , CK D stage III. [facility] Does use a walker.both her and herself tested positive for COVID on January 21. was admitted to the hospital on January 27 and discharged on February 02. With COVID pneumonia.. February 08-admitted with features of abdominal pain with partial small bowel obstruction. some vaginal bleeding.patient is seen by Dr. Mckinney. Clinically doing better. Not for any further intervention. Also seen by Dr. Monroe. carried out a pelvic exam.- localized area of excoriation. Could be the source.also being treated for a UTI-Enterococcus faecalis. Complete course of Macrobid.. Computed tomography scan of the abdomen showed severe fecal stasis. Had a good response to laxative. February 16-discharged to [facility] for rehab. Now readmitted from the [facility]. dry cough. No fever no chills. Feels very tired. Decreased appetite. Diagnosed with-acute kidney injury, right lower lobe pneumonia felt to be bacterial. Zestoretic was held. IV fluids. IV cefepime. Today-very slight cough. Feels better. Had about 50% of her breakfast and lunch. Sitting up in a recliner. Review of systems: Was done for constitutional, cardiovascular, GI, pulmonary. relevant finding as above Active Medications Acetaminophen (Acetaminophen Tab 325 Mg Tab) 650 mg PO BID PRN PRN Reason: Pain Last Admin: 02/29/20 14:20 Dose: 650 mg Documented by: Hydrocodone Bitart/Acetaminophen (Hydrocodone/Apap 7.5-325mg 1 Each Tab) 1 each PO BID@0800,1999 [facility] Last Admin: 02/29/20 09:17 Dose: 1 each Documented by: Albuterol Sulfate (Albuterol Hfa Inhaler) 2 puff INHALATION RT-Q4H PRN PRN Reason: Shortness Of Breath Albuterol Sulfate (Albuterol Hfa Inhaler) 2 puff INHALATION RT-QID [facility] Last Admin: 02/29/20 15:43 Dose: 2 puff Documented by: Bisacodyl (Bisacodyl 10 Mg Supp) 10 mg RECTAL DAILY PRN PRN Reason: Constipation Bupropion HCl (Bupropion Xl 150 Mg Tab.Er.24h) 150 mg PO DAILY@0800 [facility] Last Admin: 02/29/20 09:16 Dose: 150 mg Documented by: Enoxaparin Sodium (Enoxaparin 40 Mg/0.4 Ml Syringe) 40 mg SQ DAILY [facility] Last Admin: 02/29/20 09:18 Dose: 40 mg Documented by: Gabapentin (Gabapentin 100 Mg Cap) 100 mg PO BID@0800,2100 [facility] Last Admin: 02/29/20 09:17 Dose: 100 mg Documented by: Sodium Chloride (Saline 0.9%) 1,000 mls @ 100 mls/hr IV .Q10H [facility] Last Admin: 02/29/20 16:17 Dose: 100 mls/hr Documented by: Cefepime HCl 2 gm/ Sodium (Chloride) 100 mls @ 25 mls/hr IVPB Q8H [facility] Last Admin: 02/29/20 17:49 Dose: 25 mls/hr Documented by: Magnesium Hydroxide (Magnesium Hydroxide 2,400 Mg/10 Ml Cup) 2,400 mg PO DAILY PRN PRN Reason: Constipation Melatonin (Melatonin 3 Mg Tablet) 3 mg PO HS@2100 [facility] Last Admin: 02/28/20 19:31 Dose: 3 mg Documented by: Metoprolol Tartrate (Metoprolol Tartrate 25 Mg Tab) 75 mg PO BID@0800,1700 [facility] Last Admin: 02/29/20 16:15 Dose: 75 mg Documented by: Miscellaneous Information (Pneumonia Protocol Utilized 1 Each Misc) 1 each PO ONCE PRN PRN Reason: Per Protocol Oxybutynin Chloride (Oxybutynin Chloride 5 Mg Tab) 5 mg PO BID@0800,1700 [facility] Last Admin: 02/29/20 16:15 Dose: 5 mg Documented by: Pantoprazole Sodium (Pantoprazole 40 Mg Tablet) 40 mg PO BID@0800,1700 [facility] Last Admin: 02/29/20 16:15 Dose: 40 mg Documented by: Psyllium Hydrophilic Mucilloid (Psyllium Husk 100% 6 Gm Packet) 6 gm PO BID@0800,1700 [facility] Last Admin: 02/29/20 16:16 Dose: Not Given Documented by: Zinc Sulfate (Zinc Sulfate 220 Mg Cap) 220 mg PO DAILY@1700 [facility] Last Admin: 02/29/20 16:15 Dose: 220 mg Documented by: On examination: VITAL SIGNS: 97.4, 85, 20, 131/82, 96% on room air GENERAL APPEARANCE: Sitting up in a recliner, looking better HEENT: Normal external appearance of nose and ear. Oral cavity normal EYES: Pupils equal. Conjunctiva normal. NECK: JVD not raised. Mass not palpable. RESPIRATORY: Respiratory effort normal. decreased breath sounds CARDIOVASCULAR: First and second sounds normal. No edema. ABDOMEN: Soft. Nontender no guarding rigidity Liver and spleen not palpable. No tenderness. No mass palpable. PSYCHIATRY: Alert and oriented x3. Mood and affect normal. INVESTIGATIONS, reviewed in the clinical context: February 28: White count 5.8 hemoglobin 9.2 platelets 276 potassium 5.1 creatinine 1.3 d-dimer 2.71 CRP 5.8 White count 7.6 hemoglobin 7.8, BUN 32 creatinine 1.6 EKG tracing personally reviewed by me-normal sinus rhythm Chest x-ray film personally reviewed by me-right basilar infiltrate Previous testing: February 19: Creatinine 1.1 Assessment:-- -Acute kidney injury from decreased oral intake and prerenal, causing patient to be weak and tired.-Improving -Right lower lobe pneumonia, suspect gram-negative orgasm -Recent treated COVID 19 pneumonia -diabetes mellitus type 2, -Hypotension from volume loss-improving -History of-essential hypertension, -chronic 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 -diabetic peripheral neuropathy -anxiety depression otherwise specified -Primary osteoarthritis -Chronic gait dysfunction uses a walker Plan: Continue IV fluids. , IV cefepime. Clinically looking better. Repeat labs in the morning. Other medications to continue.
[2020-02-29] MEDS: MELATONIN 3 MG TABLET PO SCH (20:22)
[2020-02-29 20:57] LABS: Glucose,Whole Blood 121 mg/dL (75-99)
--- NOTE | 2020-03-01 00:27 | PN ---
PROGRESS NOTE DATE OF SERVICE: 02/29/2020 REASON FOR FOLLOWUP: Possible pneumonia and UTI. INTERVAL HISTORY: The patient is currently afebrile. Patient is breathing comfortably. The patient denies having any chest pain shortness of breath. Minimal cough. No abdominal pain. No diarrhea. PHYSICAL EXAMINATION: Blood pressure 133/81 with a pulse of 74, temperature 98.1. She is 96% on room air. General description: The patient is a middle aged female up in the chair in no distress. Respiratory system: Unlabored breathing with decreased breath sounds in the base. Heart S1, S2. Regular rate and rhythm. Abdomen soft, no tenderness. LAB: LDH of 332 with CRP 5.8. Procalcitonin currently pending. Urine was positive. DIAGNOSTIC IMPRESSION AND PLAN: Patient admitted to the hospital with weakness, concern for possible Gram-negative pneumonia, urinary tract infection. The patient is covered with cefepime. Will continue while waiting for the culture to finalize. Continue supportive care. MMODL / IJN: [id number] /
[2020-03-01] MEDS: CEFEPIME 2 GM in SODIUM CHLORIDE 0.9% 100 ML IVPB SCH ×3 (01:18→20:14)
[2020-03-01] MEDS: SODIUM CHLORIDE 0.9% 1,000 ML IV SCH ×2 (02:51→13:05)
[2020-03-01 07:05] LABS: Anisocytosis Slight; HCT 32.6 % (34.0-46.0); HGB 10.1 gm/dL (11.4-16.0); Hypochromasia Marked; MCH 27.5 pg (25.0-35.0); MCV 88.7 fL (80.0-100.0); Mean Platelet Volume 7.7; Platelet Count 248 k/uL (150-450); RBC 3.68 m/uL (3.80-5.40); RDW 16.2 % (11.5-15.5); WBC 5.8 k/uL (3.8-10.6)
[2020-03-01] MEDS: OXYBUTYNIN CHLORIDE 5 MG TAB PO SCH ×2 (07:42→17:10)
[2020-03-01] MEDS: GABAPENTIN 100 MG CAP PO SCH ×2 (07:42→20:14)
[2020-03-01] MEDS: PANTOPRAZOLE 40 MG TABLET PO SCH ×2 (07:42→17:11)
[2020-03-01] MEDS: HYDROcodone/APAP 7.5-325MG 1 EACH TAB PO SCH ×2 (07:42→20:13)
[2020-03-01] MEDS: METOPROLOL TARTRATE 25 MG TAB PO SCH ×2 (07:43→17:10)
[2020-03-01] MEDS: ENOXAPARIN 40 MG/0.4 ML SYRINGE SQ SCH (07:43)
[2020-03-01 07:44] LABS: Glucose,Whole Blood 106 mg/dL (75-99)
[2020-03-01] MEDS: buPROPion XL 150 MG TAB.ER.24H PO SCH (07:44)
[2020-03-01] MEDS: PSYLLIUM HUSK 100% 6 GM PACKET PO SCH ×3 (07:44→17:09)
[2020-03-01] MEDS: ALBUTEROL HFA INHALER INHALATION SCH ×4 (09:40→19:48)
[2020-03-01 10:03] LABS: African American GFR (CKD) 59.3 (60.0-200.0); Anion Gap 9.4 mmol/L (4.00-12.00); BUN/Creat Ratio 20.91 Ratio (12.00-20.00); C Reactive Protein 4.6 mg/dL (0.0-0.8); Calcium 8.6 mg/dL (8.7-10.3); Carbon Dioxide 23.6 mmol/L (21.6-31.8); Non-African American GFR(CKD) 51.2 (60.0-200.0); Potassium 4.8 mmol/L (3.5-5.5)
[2020-03-01] MEDS: ACETAMINOPHEN TAB 325 MG TAB PO PRN ×2 (11:41→22:55)
[2020-03-01 11:42] LABS: Glucose,Whole Blood 111 mg/dL (75-99)
[2020-03-01] MEDS: ZINC SULFATE 220 MG CAP PO SCH (17:11)
[2020-03-01 17:23] LABS: Glucose,Whole Blood 112 mg/dL (75-99)
[2020-03-01] MEDS: MELATONIN 3 MG TABLET PO SCH (20:14)
[2020-03-01 20:42] LABS: Glucose,Whole Blood 109 mg/dL (75-99)
--- NOTE | 2020-03-01 22:24 | P.PN ---
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 -diabetic peripheral neuropathy -anxiety depression otherwise specified -Primary osteoarthritis -Chronic gait dysfunction uses a walker 03/01/2020, patient seen eval examined during the rounds labs reviewed medications reviewed, respiratory status remained stable patient is more awake now denies any chest pain, hemodynamic status stable, oxygen saturation 95% remains afebrile, labs from today reviewed white cell count down to 5800 with stable hemoglobin, ID service has been following, chest x-ray however revealed bilateral moderate pleural effusion, more so on the right side compared to left side, This is a very pleasant [address] Navas. Chronic stable medical conditions include diabetes, hypertension, depression and anxiety, bilateral kidney stones, COPD , CK D stage III. patient is a resident of [facility] Does use a walker.both her and herself tested positive for COVID on January 21. was admitted to the hospital on January 27 and discharged on February 02. With COVID pneumonia.. February 08-admitted with features of abdominal pain with partial small bowel obstruction. some vaginal bleeding.patient is seen by Dr. Mckinney. Clinically doing better. Not for any further intervention. Also seen by Dr. Monroe. carried out a pelvic exam.- localized area of excoriation. Could be the source.also being treated for a UTI-Enterococcus faecalis. Complete course of Macrobid.. Computed tomography scan of the abdomen showed severe fecal stasis. Had a good response to laxative. February 16-discharged to [facility] for rehab. Now readmitted from the [facility]. dry cough. No fever no chills. Feels very tired. Decreased appetite. Diagnosed with-acute kidney injury, right lower lobe pneumonia felt to be bacterial. Zestoretic was held. IV fluids. IV cefepime. Objective - Vital Signs Vital signs: Vital Signs Temp 97.6 F 03/01/20 18:50 Pulse 77 03/01/20 18:50 Resp 18 12/19/20 18:50 BP 126/80 03/01/20 18:50 Pulse Ox 96 03/01/20 18:50 Intake & Output 03/01/20 03/01/20 03/02/20 06:59 18:59 06:59 Intake Total 400 Output Total 1400 Balance -1000 Intake: Oral 400 Output: Urine 1400 Other: Voiding Method Diaper Incontinent Incontinent - Exam GENERAL APPEARANCE: Sitting up in a recliner, looking better HEENT: Normal external appearance of nose and ear. Oral cavity normal EYES: Pupils equal. Conjunctiva normal. NECK: JVD not raised. Mass not palpable. RESPIRATORY: Respiratory effort normal. decreased breath sounds CARDIOVASCULAR: First and second sounds normal. No edema. ABDOMEN: Soft. Nontender no guarding rigidity Liver and spleen not palpable. No tenderness. No mass palpable. PSYCHIATRY: Alert and oriented x3. Mood and affect normal. - Labs CBC & Chem 7: 03/01/20 06:43 03/01/20 06:43 Labs: Abnormal Lab Results - Last 24 Hours (Table) 02/29/20 03/01/20 03/01/20 Range/Units 05:38 06:43 06:43 RBC 3.68 L (3.80-5.40) m/uL Hgb 10.1 L (11.4-16.0) gm/dL Hct 32.6 L (34.0-46.0) % RDW 16.2 H (11.5-15.5) % D-Dimer 2.91 H (<0.60) mg/L FEU Est GFR (CKD-EPI)AfAm (60.0-200.0) Est GFR (CKD-EPI)NonAf (60.0-200.0) BUN/Creatinine Ratio (12.00-20.00) Ratio Glucose (70-110) mg/dL POC Glucose (mg/dL) (75-99) mg/dL Calcium (8.7-10.3) mg/dL C-Reactive Protein (0.0-0.8) mg/dL Procalcitonin 0.30 H (0.02-0.09) ng/mL 03/01/20 03/01/20 03/01/20 Range/Units 06:43 07:26 11:35 RBC (3.80-5.40) m/uL Hgb (11.4-16.0) gm/dL Hct (34.0-46.0) % RDW (11.5-15.5) % D-Dimer (<0.60) mg/L FEU Est GFR (CKD-EPI)AfAm 59.3 L (60.0-200.0) Est GFR (CKD-EPI)NonAf 51.2 L (60.0-200.0) BUN/Creatinine Ratio 20.91 H (12.00-20.00) Ratio Glucose 114 H (70-110) mg/dL POC Glucose (mg/dL) 106 H 111 H (75-99) mg/dL Calcium 8.6 L (8.7-10.3) mg/dL C-Reactive Protein 4.6 H (0.0-0.8) mg/dL Procalcitonin (0.02-0.09) ng/mL 03/01/20 03/01/20 Range/Units 17:17 20:41 RBC (3.80-5.40) m/uL Hgb (11.4-16.0) gm/dL Hct (34.0-46.0) % RDW (11.5-15.5) % D-Dimer (<0.60) mg/L FEU Est GFR (CKD-EPI)AfAm (60.0-200.0) Est GFR (CKD-EPI)NonAf (60.0-200.0) BUN/Creatinine Ratio (12.00-20.00) Ratio Glucose (70-110) mg/dL POC Glucose (mg/dL) 112 H 109 H (75-99) mg/dL Calcium (8.7-10.3) mg/dL C-Reactive Protein (0.0-0.8) mg/dL Procalcitonin (0.02-0.09) ng/mL Microbiology - Last 24 Hours (Table) 02/29/20 11:20 Urine Culture - Final Urine,Voided 02/28/20 02:45 Blood Culture - Preliminary Blood No Growth after 48 hours 02/28/20 00:21 Blood Culture - Preliminary Blood No Growth after 48 hours Assessment and Plan Assessment: Bilateral pleural effusion more so on the right side compared to left side -Acute kidney injury from decreased oral intake and prerenal, causing patient to be weak and tired.-Improving -Right lower lobe pneumonia, suspect gram-negative orgasm -Recent treated COVID 19 pneumonia -diabetes mellitus type 2, -Hypotension from volume loss-improving -History of-essential hypertension, -chronic 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
--- NOTE | 2020-03-01 22:55 | PN ---
PROGRESS NOTE DATE OF SERVICE: 03/01/2020 REASON FOR FOLLOWUP: Pneumonia and UTI. INTERVAL HISTORY: Patient is currently afebrile. The patient is breathing more comfortably. The patient is currently on room air. Denies having any chest pain, shortness of breath. Occasional cough. No abdominal pain. No diarrhea. PHYSICAL EXAMINATION: Blood pressure 126/80 with a pulse of 77, temperature 97.6, 96% on room air. General description: The patient is an elderly female up in the bed in no distress. Respiratory system: Unlabored breathing with decreased intensity of breath sounds in the bases. No wheeze. HEART: S1, S2. Regular rate and rhythm. Abdomen soft, no tenderness. LABS: BUN of 23, creatinine 1.1, CRP 4.6. Urine is negative. Blood culture negative. Sputum not collected. DIAGNOSTIC IMPRESSION AND PLAN: Patient admitted to the hospital with shortness of breath and cough with concern for possible Gram-negative pneumonia in this patient with a history of Covid-19 infection. The patient is currently on cefepime. We will try to obtain a sputum to narrow down antibiotics and continue supportive care. MMODL / IJN: [id number] /
[2020-03-02] MEDS: SODIUM CHLORIDE 0.9% 1,000 ML IV SCH ×3 (01:30→20:32)
[2020-03-02 06:55] LABS: Glucose,Whole Blood 122 mg/dL (75-99)
--- NOTE | 2020-03-02 07:43 | US ---
EXAMINATION TYPE: US chest DATE OF EXAM: 03/01/2020 COMPARISON: NONE CLINICAL HISTORY: pleural effusion. pleural effusion TECHNIQUE: Targeted ultrasound of the posterior lower bilateral hemithoraces EXAM MEASUREMENTS: Right Pleural Effusion pocket size: 13.0 cm Right skin surface to fluid distance: 3.4 cm Left Pleural Effusion pocket size: no significant fluid collection at this time Right side marked for possible thoracentesis outside the dept. Left side NOT marked for possible thoracentesis outside the dept. Pulmonologists are able to review the images in the patient?s EMR. IMPRESSIONS: As above
[2020-03-02] MEDS: ENOXAPARIN 40 MG/0.4 ML SYRINGE SQ SCH (09:21)
[2020-03-02] MEDS: PANTOPRAZOLE 40 MG TABLET PO SCH ×2 (09:21→17:55)
[2020-03-02] MEDS: HYDROcodone/APAP 7.5-325MG 1 EACH TAB PO SCH ×2 (09:21→20:32)
[2020-03-02] MEDS: OXYBUTYNIN CHLORIDE 5 MG TAB PO SCH ×2 (09:22→17:55)
[2020-03-02] MEDS: CEFEPIME 2 GM in SODIUM CHLORIDE 0.9% 100 ML IVPB SCH ×2 (09:22→20:33)
[2020-03-02] MEDS: METOPROLOL TARTRATE 25 MG TAB PO SCH ×2 (09:22→17:55)
[2020-03-02] MEDS: GABAPENTIN 100 MG CAP PO SCH ×2 (09:22→20:32)
[2020-03-02] MEDS: buPROPion XL 150 MG TAB.ER.24H PO SCH (09:23)
[2020-03-02] MEDS: PSYLLIUM HUSK 100% 6 GM PACKET PO SCH ×2 (09:23→17:51)
[2020-03-02] MEDS: ALBUTEROL HFA INHALER INHALATION SCH ×4 (09:40→19:35)
[2020-03-02 12:13] LABS: Glucose,Whole Blood 107 mg/dL (75-99)
[2020-03-02 12:16] LABS: African American GFR (CKD) 66.6 (60.0-200.0); Anion Gap 8.2 mmol/L (4.00-12.00); C Reactive Protein 3.6 mg/dL (0.0-0.8); Calcium 8.6 mg/dL (8.7-10.3); Carbon Dioxide 22.8 mmol/L (21.6-31.8); Non-African American GFR(CKD) 57.4 (60.0-200.0); Potassium 4.8 mmol/L (3.5-5.5)
[2020-03-02] MEDS: ACETAMINOPHEN TAB 325 MG TAB PO PRN (13:26)
[2020-03-02 17:22] LABS: Glucose,Whole Blood 127 mg/dL (75-99)
[2020-03-02] MEDS: ZINC SULFATE 220 MG CAP PO SCH (17:55)
[2020-03-02 20:32] LABS: Glucose,Whole Blood 104 mg/dL (75-99)
[2020-03-02] MEDS: MELATONIN 3 MG TABLET PO SCH (20:33)
[2020-03-02] MEDS ORDERED: FLUCONAZOLE 100 MG TAB PO ONE (22:06)
--- NOTE | 2020-03-02 22:52 | P.PN ---
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 -diabetic peripheral neuropathy -anxiety depression otherwise specified -Primary osteoarthritis -Chronic gait dysfunction uses a walker 03/02/2020, patient seen eval examined during the rounds labs reviewed medications reviewed, patient underwent ultrasound of the chest revealed large right-sided pleural effusion has been noted, patient will need a right-sided thoracentesis discussed with patient at length will proceed with a right-sided thoracentesis tomorrow 03/01/2020, patient seen eval examined during the rounds labs reviewed medications reviewed, respiratory status remained stable patient is more awake now denies any chest pain, hemodynamic status stable, oxygen saturation 95% remains afebrile, labs from today reviewed white cell count down to 5800 with stable hemoglobin, ID service has been following, chest x-ray however revealed bilateral moderate pleural effusion, more so on the right side compared to left side, This is a very pleasant [address] Navas. Chronic stable medical conditions include diabetes, hypertension, depression and anxiety, bilateral kidney stones, COPD , CK D stage III. patient is a resident of [facility] Does use a walker.both her and herself tested positive for COVID on January 21. was admitted to the hospital on January 27 and discharged on February 02. With COVID pneumonia.. February 08-admitted with features of abdominal pain with partial small bowel obstruction. some vaginal bleeding.patient is seen by Dr. Mckinney. Clinically doing better. Not for any further intervention. Also seen by Dr. Monroe. carried out a pelvic exam.- localized area of excoriation. Could be the source.also being treated for a UTI-Enterococcus faecalis. Complete course of Macrobid.. Computed tomography scan of the abdomen showed severe fecal stasis. Had a good response to laxative. February 16-discharged to [facility] for rehab. Now readmitted from the [facility]. dry cough. No fever no chills. Feels very tired. Decreased appetite. Diagnosed with-acute kidney injury, right lower lobe pneumonia felt to be bacterial. Zestoretic was held. IV fluids. IV cefepime. Objective - Vital Signs Vital signs: Vital Signs Temp 97.4 F L 03/02/20 14:00 Pulse 72 03/02/20 14:00 Resp 18 03/02/20 14:00 BP 118/76 03/02/20 14:00 Pulse Ox 96 03/02/20 14:00 Intake & Output 03/02/20 03/02/20 03/03/20 06:59 18:59 06:59 Output Total 800 450 Balance -800 -450 Output: Urine 800 450 Other: Voiding Method Incontinent # Bowel Movements 1 - Exam GENERAL APPEARANCE: Sitting up in a recliner, looking better HEENT: Normal external appearance of nose and ear. Oral cavity normal EYES: Pupils equal. Conjunctiva normal. NECK: JVD not raised. Mass not palpable. RESPIRATORY: Respiratory effort normal. decreased breath sounds CARDIOVASCULAR: First and second sounds normal. No edema. ABDOMEN: Soft. Nontender no guarding rigidity Liver and spleen not palpable. No tenderness. No mass palpable. PSYCHIATRY: Alert and oriented x3. Mood and affect normal. - Labs CBC & Chem 7: 03/01/20 06:43 03/02/20 08:37 Labs: Abnormal Lab Results - Last 24 Hours (Table) 03/02/20 03/02/20 03/02/20 Range/Units 06:54 08:37 08:37 D-Dimer 3.52 H (<0.60) mg/L FEU Est GFR (CKD-EPI)NonAf (60.0-200.0) Glucose (70-110) mg/dL POC Glucose (mg/dL) 122 H (75-99) mg/dL Calcium (8.7-10.3) mg/dL C-Reactive Protein (0.0-0.8) mg/dL Procalcitonin 0.30 H (0.02-0.09) ng/mL 03/02/20 03/02/20 03/02/20 Range/Units 08:37 12:10 17:20 D-Dimer (<0.60) mg/L FEU Est GFR (CKD-EPI)NonAf 57.4 L (60.0-200.0) Glucose 111 H (70-110) mg/dL POC Glucose (mg/dL) 107 H 127 H (75-99) mg/dL Calcium 8.6 L (8.7-10.3) mg/dL C-Reactive Protein 3.6 H (0.0-0.8) mg/dL Procalcitonin (0.02-0.09) ng/mL 03/02/20 Range/Units 20:31 D-Dimer (<0.60) mg/L FEU Est GFR (CKD-EPI)NonAf (60.0-200.0) Glucose (70-110) mg/dL POC Glucose (mg/dL) 104 H (75-99) mg/dL Calcium (8.7-10.3) mg/dL C-Reactive Protein (0.0-0.8) mg/dL Procalcitonin (0.02-0.09) ng/mL Microbiology - Last 24 Hours (Table) 02/29/20 11:20 Urine Culture - Preliminary Urine,Voided Yeast species 02/28/20 02:45 Blood Culture - Preliminary Blood No Growth after 72 hours 02/28/20 00:21 Blood Culture - Preliminary Blood No Growth after 72 hours Assessment and Plan Assessment: Large right-sided pleural effusion Bilateral pleural effusion more so on the right side compared to left side -Acute kidney injury from decreased oral intake and prerenal, causing patient to be weak and tired.-Improving -Right lower lobe pneumonia, suspect gram-negative orgasm -Recent treated COVID 19 pneumonia -diabetes mellitus type 2, -Hypotension from volume loss-improving -History of-essential hypertension, -chronic 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
[2020-03-03] MEDS: ACETAMINOPHEN TAB 325 MG TAB PO PRN ×2 (00:40→14:30)
--- NOTE | 2020-03-03 02:18 | PN ---
PROGRESS NOTE DATE OF SERVICE: 03/02/2020 REASON FOR FOLLOWUP: Possible gram-negative pneumonia and UTI. INTERVAL HISTORY: The patient is currently afebrile. The patient is breathing comfortably. The patient denies having any chest pain, shortness of breath or cough. No abdominal pain or diarrhea. PHYSICAL EXAMINATION: Blood pressure is 118/76, pulse of 72, temperature 97.4. She is 96% on room air. General description is an elderly female up in the bed in no distress. RESPIRATORY SYSTEM: Unlabored breathing with decreased intensity of breath sounds. No wheeze. HEART: S1, S2. Regular rate and rhythm. ABDOMEN: Soft, no tenderness. LABS: BUN of 19, creatinine 1.0. DIAGNOSTIC IMPRESSION AND PLAN: 1. Patient with a lower lobe pneumonia with concern for possible gram-negative covered with cefepime. Try to obtain a sputum to narrow down antibiotics. 2. Patient with urinary tract infection with urine showing yeast. A short course of oral Diflucan. MMODL / IJN: [id number] /
[2020-03-03] MEDS: SODIUM CHLORIDE 0.9% 1,000 ML IV SCH ×2 (05:36→16:26)
[2020-03-03] MEDS: ENOXAPARIN 40 MG/0.4 ML SYRINGE SQ SCH (06:51)
[2020-03-03] MEDS: HYDROcodone/APAP 7.5-325MG 1 EACH TAB PO SCH ×2 (08:08→20:02)
[2020-03-03] MEDS: PANTOPRAZOLE 40 MG TABLET PO SCH ×2 (08:08→16:26)
[2020-03-03] MEDS: METOPROLOL TARTRATE 25 MG TAB PO SCH ×2 (08:08→16:26)
[2020-03-03] MEDS: CEFEPIME 2 GM in SODIUM CHLORIDE 0.9% 100 ML IVPB SCH ×2 (08:08→20:02)
[2020-03-03] MEDS: PSYLLIUM HUSK 100% 6 GM PACKET PO SCH ×2 (08:08→16:26)
[2020-03-03] MEDS: GABAPENTIN 100 MG CAP PO SCH ×2 (08:09→20:02)
[2020-03-03] MEDS: OXYBUTYNIN CHLORIDE 5 MG TAB PO SCH ×2 (08:09→16:26)
[2020-03-03] MEDS: FLUCONAZOLE 100 MG TAB PO SCH (08:09)
[2020-03-03] MEDS: buPROPion XL 150 MG TAB.ER.24H PO SCH (08:09)
[2020-03-03] MEDS: ALBUTEROL HFA INHALER INHALATION SCH ×4 (08:26→19:41)
[2020-03-03 11:40] LABS: Glucose,Whole Blood 109 mg/dL (75-99)
[2020-03-03 12:44] LABS: Anisocytosis Slight; HCT 31.5 % (34.0-46.0); HGB 9.9 gm/dL (11.4-16.0); Hypochromasia Marked; MCHC 31.4 g/dL (31.0-37.0); MCV 89.2 fL (80.0-100.0); Mean Platelet Volume 8.1; Platelet Count 216 k/uL (150-450); RBC 3.54 m/uL (3.80-5.40); RDW 16.1 % (11.5-15.5); WBC 5.5 k/uL (3.8-10.6)
[2020-03-03 12:55] LABS: African American GFR (CKD) 64 (>60 ml/min/1.73 sqM); Anion Gap 4 mmol/L; Blood Urea Nitrogen 18 mg/dL (7-17); Calcium 8.1 mg/dL (8.4-10.2); Carbon Dioxide 23 mmol/L (22-30); Chloride 109 mmol/L (98-107); Glucose 108 mg/dL (74-99); Non-African American GFR(CKD) 55 (>60 ml/min/1.73 sqM); Potassium 4.8 mmol/L (3.5-5.1); Sodium 136 mmol/L (137-145); Total Protein 5.2 g/dL (6.3-8.2)
--- NOTE | 2020-03-03 13:29 | P.PN ---
Subjective Progress Note Date: 03/03/20 Principal diagnosis: -Acute kidney injury from decreased oral intake and prerenal, causing patient to be weak and tired.-Improving -Right lower lobe pneumonia, suspect gram-negative orgasm -Recent treated COVID 19 pneumonia -diabetes mellitus type 2, -Hypotension from volume loss-improving -History of-essential hypertension, -chronic 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 -diabetic peripheral neuropathy -anxiety depression otherwise specified -Primary osteoarthritis -Chronic gait dysfunction uses a walker 03/03/2020, patient seen eval examined labs reviewed medications reviewed, patient is scheduled for IR to do the thoracentesis this afternoon respiratory status remains stable procedure has been explained to patient 03/02/2020, patient seen eval examined during the rounds labs reviewed medications reviewed, patient underwent ultrasound of the chest revealed large right-sided pleural effusion has been noted, patient will need a right-sided thoracentesis discussed with patient at length will proceed with a right-sided thoracentesis tomorrow 03/01/2020, patient seen eval examined during the rounds labs reviewed medic ations reviewed, respiratory status remained stable patient is more awake now denies any chest pain, hemodynamic status stable, oxygen saturation 95% remains afebrile, labs from today reviewed white cell count down to 5800 with stable hemoglobin, ID service has been following, chest x-ray however revealed bilateral moderate pleural effusion, more so on the right side compared to left side, This is a very pleasant [address] Navas. Chronic stable medical conditions include diabetes, hypertension, depression and anxiety, bilateral kidney stones, COPD , CK D stage III. [facility] Does use a walker.both her and herself tested positive for COVID on January 21. was admitted to the hospital on January 27 and discharged on February 02. With COVID pneumonia.. February 08-admitted with features of abdominal pain with partial small bowel obstruction. some vaginal bleeding.patient is seen by Dr. Mckinney. Clinically doing better. Not for any further intervention. Also seen by Dr. Monroe. carried out a pelvic exam.- localized area of excoriation. Could be the source.also being treated for a UTI-Enterococcus faecalis. Complete course of Macrobid.. Computed tomography scan of the abdomen showed severe fecal stasis. Had a good response to laxative. February 16-discharged to [facility] for rehab. Now readmitted from the [facility]. dry cough. No fever no chills. Feels very tired. Decreased appetite. Diagnosed with-acute kidney injury, right lower lobe pneumonia felt to be bacterial. Zestoretic was held. IV fluids. IV cefepime. Objective - Vital Signs Vital signs: Vital Signs Temp 97.8 F 03/03/20 08:07 Pulse 86 03/03/20 08:07 Resp 20 03/03/20 08:07 BP 124/81 03/03/20 08:07 Pulse Ox 99 03/03/20 08:07 Intake & Output 03/02/20 03/03/20 03/03/20 18:59 06:59 18:59 Output Total 450 Balance -450 Output: Urine 450 Other: Voiding Method Bedside Commode Diaper Incontinent # Voids 4 2 # Bowel Movements 1 - Exam GENERAL APPEARANCE: Sitting up in a recliner, looking better HEENT: Normal external appearance of nose and ear. Oral cavity normal EYES: Pupils equal. Conjunctiva normal. NECK: JVD not raised. Mass not palpable. RESPIRATORY: Respiratory effort normal. decreased breath sounds CARDIOVASCULAR: First and second sounds normal. No edema. ABDOMEN: Soft. Nontender no guarding rigidity Liver and spleen not palpable. No tenderness. No mass palpable. PSYCHIATRY: Alert and oriented x3. Mood and affect normal. - Labs CBC & Chem 7: 03/03/20 11:37 03/03/20 11:37 Labs: Abnormal Lab Results - Last 24 Hours (Table) 03/02/20 03/02/20 03/03/20 Range/Units 17:20 20:31 11:37 RBC (3.80-5.40) m/uL Hgb (11.4-16.0) gm/dL Hct (34.0-46.0) % RDW (11.5-15.5) % Sodium 136 L (137-145) mmol/L Chloride 109 H (98-107) mmol/L BUN 18 H (7-17) mg/dL Glucose 108 H (74-99) mg/dL POC Glucose (mg/dL) 127 H 104 H (75-99) mg/dL Calcium 8.1 L (8.4-10.2) mg/dL Total Protein 5.2 L (6.3-8.2) g/dL 03/03/20 03/03/20 Range/Units 11:37 11:38 RBC 3.54 L (3.80-5.40) m/uL Hgb 9.9 L (11.4-16.0) gm/dL Hct 31.5 L (34.0-46.0) % RDW 16.1 H (11.5-15.5) % Sodium (137-145) mmol/L Chloride (98-107) mmol/L BUN (7-17) mg/dL Glucose (74-99) mg/dL POC Glucose (mg/dL) 109 H (75-99) mg/dL Calcium (8.4-10.2) mg/dL Total Protein (6.3-8.2) g/dL Microbiology - Last 24 Hours (Table) 02/28/20 02:45 Blood Culture - Preliminary Blood No Growth after 96 hours 02/28/20 00:21 Blood Culture - Preliminary Blood No Growth after 96 hours 02/29/20 11:20 Urine Culture - Preliminary Urine,Voided Yeast species Assessment and Plan Assessment: Large right-sided pleural effusion Bilateral pleural effusion more so on the right side compared to left side -Acute kidney injury from decreased oral intake and prerenal, causing patient to be weak and tired.-Improving -Right lower lobe pneumonia, suspect gram-negative orgasm -Recent treated COVID 19 pneumonia -diabetes mellitus type 2, -Hypotension from volume loss-improving -History of-essential hypertension, -chronic 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
--- NOTE | 2020-03-03 15:45 | XR ---
EXAMINATION TYPE: XR chest 1V portable DATE OF EXAM: 03/03/2020 HISTORY: Status post thoracentesis. COMPARISON: 02/29/2020 TECHNIQUE: Single view of the chest is submitted. FINDINGS: Demonstrated are scattered senescent parenchymal change. There is no evidence for right-sided pneumothorax. Right-sided pleural effusion persists although has decreased in size. Underlying infiltrate or atelectasis noted. The heart is stable. Hilar and mediastinal structures are within normal limits. Degenerative changes are seen of the dorsal spine. IMPRESSION: 1. There is no evidence for right-sided pneumothorax. Right-sided pleural effusion persists although has decreased in size. Underlying infiltrate or atelectasis noted.
--- NOTE | 2020-03-03 16:24 | US ---
EXAMINATION TYPE: US thoracentesis DATE OF EXAM: 03/03/2020 COMPARISON: NONE HISTORY: Pleural effusion. FINDINGS: Maximal barrier technique was utilized. The skin overlying a suitable pocket of fluid was localized and the overlying skin prepped and draped. Lidocaine was used for local anesthesia. Ultras ound was used with sterile technique. A 5 Malay catheter over guide needle was advanced into the pl eural fluid collection using ultrasound guidance a catheter advanced, needle removed. Approximately 0.8 liter(s) of serous fluid was removed. Catheter was withdrawn and hemostasis achieved. There is no immediate complication. The patient discharged in stable condition without complication. IMPRESSION: STATUS POST ULTRASOUND GUIDED THORACENTESIS, POST PROCEDURE CHEST X-RAY PENDING. THIS AL OCEDURE WAS PERFORMED BY THE UNDERSIGNED. Specimen sent for laboratory analysis.
[2020-03-03] MEDS: ZINC SULFATE 220 MG CAP PO SCH (16:26)
[2020-03-03 16:49] LABS: Glucose,Whole Blood 115 mg/dL (75-99)
[2020-03-03 18:14] LABS: Appearance,BF Clear; Nucleated Cells, Body Fluid 275 /uL; RBC, Body Fluid 4225 /uL
[2020-03-03 18:20] LABS: Mononuclear WBC,Body Fluid 74 %; Polynuclear WBC,Body Fluid 25 %; Total Cells Counted,Body Fluid 100
[2020-03-03] MEDS: MELATONIN 3 MG TABLET PO SCH (20:03)
[2020-03-03 20:33] LABS: Glucose,Whole Blood 118 mg/dL (75-99)
--- NOTE | 2020-03-03 23:29 | PN ---
PROGRESS NOTE DATE OF SERVICE: 03/03/2020 REASON FOR FOLLOWUP: Pneumonia and UTI. INTERVAL HISTORY: The patient is currently afebrile. The patient is status post ultrasound and thoracentesis by radiology, 800 mL of fluid has been removed. Patient tolerated the procedure. No nausea, no vomiting. No abdominal pain. No diarrhea. PHYSICAL EXAMINATION: Blood pressure 131/80 with a pulse of 84, temperature 98. She is 94% on room air. General description is an elderly female up in the bed in no distress. Respiratory system: Unlabored breathing with decreased intensity in breath sounds in the base, with no wheeze. Heart S1, S2. Regular rate and rhythm. ABDOMEN: Soft, no tenderness. Hemoglobin 9.1, white count of 5.5, BUN of 18, creatinine 1.04. DIAGNOSTIC IMPRESSION AND PLAN: Patient admitted to the hospital with shortness of breath concerning for pneumonia and parapneumonic effusion. Patient is status post thoracocentesis. Culture will be followed. Continue cefepime. MMODL / IJN: [id number] /
[2020-03-04] MEDS: SODIUM CHLORIDE 0.9% 1,000 ML IV SCH ×3 (01:01→20:45)
[2020-03-04] MEDS: ACETAMINOPHEN TAB 325 MG TAB PO PRN ×3 (02:42→23:25)
[2020-03-04 06:59] LABS: Glucose,Whole Blood 93 mg/dL (75-99)
[2020-03-04] MEDS: PSYLLIUM HUSK 100% 6 GM PACKET PO SCH ×2 (08:03→16:57)
[2020-03-04] MEDS: ENOXAPARIN 40 MG/0.4 ML SYRINGE SQ SCH (08:10)
[2020-03-04] MEDS: CEFEPIME 2 GM in SODIUM CHLORIDE 0.9% 100 ML IVPB SCH ×2 (08:10→20:44)
[2020-03-04] MEDS: HYDROcodone/APAP 7.5-325MG 1 EACH TAB PO SCH ×2 (08:10→19:07)
[2020-03-04] MEDS: FLUCONAZOLE 100 MG TAB PO SCH (08:11)
[2020-03-04] MEDS: PANTOPRAZOLE 40 MG TABLET PO SCH ×2 (08:11→16:55)
[2020-03-04] MEDS: OXYBUTYNIN CHLORIDE 5 MG TAB PO SCH ×2 (08:11→16:55)
[2020-03-04] MEDS: buPROPion XL 150 MG TAB.ER.24H PO SCH (08:11)
[2020-03-04] MEDS: GABAPENTIN 100 MG CAP PO SCH ×2 (08:11→20:45)
[2020-03-04] MEDS: ALBUTEROL HFA INHALER INHALATION SCH ×4 (08:14→19:15)
[2020-03-04] MEDS: METOPROLOL TARTRATE 25 MG TAB PO SCH ×2 (08:14→16:54)
[2020-03-04 11:39] LABS: Glucose,Whole Blood 113 mg/dL (75-99)
[2020-03-04 12:07] VITALS: BMI 38.0
--- NOTE | 2020-03-04 13:02 | P.PN ---
Subjective Progress Note Date: 03/04/20 Principal diagnosis: -Acute kidney injury from decreased oral intake and prerenal, causing patient to be weak and tired.-Improving -Right lower lobe pneumonia, suspect gram-negative orgasm -Recent treated COVID 19 pneumonia -diabetes mellitus type 2, -Hypotension from volume loss-improving -History of-essential hypertension, -chronic 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 -diabetic peripheral neuropathy -anxiety depression otherwise specified -Primary osteoarthritis -Chronic gait dysfunction uses a walker 03/04/2020, patient seen eval examined during the rounds labs reviewed medications reviewed, status post thoracentesis by IR, culture results and Gram stain pending, patient remains on broad-spectrum antibiotics of follow-up on that 03/03/2020, patient seen eval examined labs reviewed medications reviewed, patient is scheduled for IR to do the thoracentesis this afternoon respiratory status remains stable procedure has been explained to patient 03/02/2020, patient seen eval examined during the rounds labs reviewed m edications reviewed, patient underwent ultrasound of the chest revealed large right-sided pleural effusion has been noted, patient will need a right-sided thoracentesis discussed with patient at length will proceed with a right-sided thoracentesis tomorrow 03/01/2020, patient seen eval examined during the rounds labs reviewed medications reviewed, respiratory status remained stable patient is more awake now denies any chest pain, hemodynamic status stable, oxygen saturation 95% remains afebrile, labs from today reviewed white cell count down to 5800 with stable hemoglobin, ID service has been following, chest x-ray however revealed bilateral moderate pleural effusion, more so on the right side compared to left side, This is a very pleasant [address] Navas. Chronic stable medical conditions include diabetes, hypertension, depression and anxiety, bilateral kidney stones, COPD , CK D stage III. patient is a resident of [facility] Does use a walker.both her and herself tested positive for COVID on January 21. was admitted to the hospital on January 27 and discharged on February 02. With COVID pneumonia.. February 08-admitted with features of abdominal pain with partial small bowel obstruction. some vaginal bleeding.patient is seen by Dr. Mckinney. Amanda vivas doing better. Not for any further intervention. Also seen by Dr. Monroe. carried out a pelvic exam.- localized area of excoriation. Could be the source.also being treated for a UTI-Enterococcus faecalis. Complete course of Macrobid.. Computed tomography scan of the abdomen showed severe fecal stasis. Had a good response to laxative. February 16-discharged to [facility] for rehab. Now readmitted from the [facility]. dry cough. No fever no chills. Feels very tired. Decreased appetite. Diagnosed with-acute kidney injury, right lower lobe pneumonia felt to be bacterial. Zestoretic was held. IV fluids. IV cefepime. Objective - Vital Signs Vital signs: Vital Signs Temp 98.5 F 03/04/20 10:04 Pulse 74 03/04/20 10:04 Resp 18 03/04/20 10:04 BP 144/71 03/04/20 10:04 Pulse Ox 96 03/04/20 10:04 Intake & Output 03/03/20 03/04/20 03/04/20 18:59 06:59 18:59 Intake Total 1100 Balance 1100 Weight 94.347 kg Intake: Intake, IV Titration 1100 Amount Cefepime 2 gm In Sodium 100 Chloride 0.9% 100 ml @ 25 mls/hr IVPB Q12HR ALBERTO Rx #:[id number] Sodium Chloride 0.9% 1, 1000 000 ml @ 100 mls/hr IV . Q10H ALBERTO Rx#:[id number] Other: Voiding Method Bedside Commode Incontinent Diaper Incontinent # Voids 2 4 - Exam GENERAL APPEARANCE: Sitting up in a recliner, looking better HEENT: Normal external appearance of nose and ear. Oral cavity normal EYES: Pupils equal. Conjunctiva normal. NECK: JVD not raised. Mass not palpable. RESPIRATORY: Respiratory effort normal. decreased breath sounds CARDIOVASCULAR: First and second sounds normal. No edema. ABDOMEN: Soft. Nontender no guarding rigidity Liver and spleen not palpable. No tenderness. No mass palpable. PSYCHIATRY: Alert and oriented x3. Mood and affect normal. - Labs CBC & Chem 7: 03/03/20 11:37 03/03/20 11:37 Labs: Abnormal Lab Results - Last 24 Hours (Table) 03/03/20 03/03/20 03/04/20 Range/Units 16:47 20:32 11:38 POC Glucose (mg/dL) 115 H 118 H 113 H (75-99) mg/dL Microbiology - Last 24 Hours (Table) 02/28/20 02:45 Blood Culture - Preliminary Blood No Growth after 120 hours 02/28/20 00:21 Blood Culture - Preliminary Blood No Growth after 120 hours 03/03/20 14:30 Gram Stain - Preliminary Pleural Fluid Body Fluid Culture - Preliminary 03/03/20 14:30 Anaerobic Culture - Preliminary Pleural Fluid 02/29/20 11:20 Urine Culture - Final Urine,Voided Cee glabrata Assessment and Plan Assessment: Large right-sided pleural effusion it is posterior right-sided thoracentesis Bilateral pleural effusion more so on the right side compared to left side -Acute kidney injury from decreased oral intake and prerenal, causing patient to be weak and tired.-Improving -Right lower lobe pneumonia, suspect gram-negative orgasm -Recent treated COVID 19 pneumonia -diabetes mellitus type 2, -Hypotension from volume loss-improving -History of-essential hypertension, -chronic 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
[2020-03-04 16:43] LABS: Glucose,Whole Blood 114 mg/dL (75-99)
[2020-03-04] MEDS: ZINC SULFATE 220 MG CAP PO SCH (16:54)
[2020-03-04] MEDS: MELATONIN 3 MG TABLET PO SCH (20:45)
[2020-03-04 20:53] LABS: Glucose,Whole Blood 96 mg/dL (75-99)
--- NOTE | 2020-03-04 23:02 | PN ---
PROGRESS NOTE DATE OF SERVICE: 03/04/2020 REASON FOR FOLLOWUP: Pneumonia. INTERVAL HISTORY: The patient is currently afebrile. The patient is breathing comfortably on room air. Denies any chest pain, shortness of breath. No cough. No abdominal pain. No diarrhea. EXAMINATION: Blood pressure 140/83, with a pulse of 74, temperature 98.3. She is 97% on room air. General description: The patient is an elderly female up in the bed in no distress. Respiratory system: Unlabored breathing with decreased intensity of breath sounds. No wheeze. Heart S1, S2. Regular rate and rhythm. ABDOMEN: Soft, no tenderness. LABS: culture so far pending. No CBC was done today. DIAGNOSTIC IMPRESSION AND PLAN: Patient with pneumonia, concern for possible gram-negative covered with cefepime. We will wait for the pleural fluid culture to finalize to determine his discharge antibiotics and continue supportive care. MMODL / IJN: [id number] /
[2020-03-05 06:56] LABS: Glucose,Whole Blood 109 mg/dL (75-99)
[2020-03-05] MEDS: PSYLLIUM HUSK 100% 6 GM PACKET PO SCH ×2 (08:22→16:08)
[2020-03-05] MEDS: ENOXAPARIN 40 MG/0.4 ML SYRINGE SQ SCH (08:23)
[2020-03-05] MEDS: GABAPENTIN 100 MG CAP PO SCH (08:23)
[2020-03-05] MEDS: OXYBUTYNIN CHLORIDE 5 MG TAB PO SCH ×2 (08:23→16:08)
[2020-03-05] MEDS: METOPROLOL TARTRATE 25 MG TAB PO SCH ×2 (08:23→16:08)
[2020-03-05] MEDS: HYDROcodone/APAP 7.5-325MG 1 EACH TAB PO SCH (08:23)
[2020-03-05] MEDS: PANTOPRAZOLE 40 MG TABLET PO SCH ×2 (08:23→16:08)
[2020-03-05] MEDS: CEFEPIME 2 GM in SODIUM CHLORIDE 0.9% 100 ML IVPB SCH (08:23)
[2020-03-05] MEDS: SODIUM CHLORIDE 0.9% 1,000 ML IV SCH ×2 (08:24→16:08)
[2020-03-05] MEDS: buPROPion XL 150 MG TAB.ER.24H PO SCH (08:24)
[2020-03-05] MEDS: ALBUTEROL HFA INHALER INHALATION SCH ×3 (08:40→16:47)
[2020-03-05 11:32] LABS: Glucose,Whole Blood 98 mg/dL (75-99)
[2020-03-05] MEDS: ACETAMINOPHEN TAB 325 MG TAB PO PRN (12:42)
--- NOTE | 2020-03-05 13:12 | P.DS ---
Providers Date of admission: 02/28/20 01:44 Expected date of discharge: 03/05/20 Attending physician: Miguel A Haji Consults: 02/28/20 11:14 Consult Physician Routine Consulting Provider: Mitch Francis Consult Reason/Comments: covid-19 Do you want consulting provider notified?: Yes Primary care physician: Alejandro Navas [facility] Course: 03/05/2020, patient is doing well on room air breathing comfortably denies any chest pain cough congestion and sputum improved, wishes to go home, has finished therapy Progress Note Date: 03/04/20 Principal diagnosis: -Acute kidney injury from decreased oral intake and prerenal, causing patient to be weak and tired.-Improving -Right lower lobe pneumonia, suspect gram-negative orgasm -Recent treated COVID 19 pneumonia -diabetes mellitus type 2, -Hypotension from volume loss-improving -History of-essential hypertension, -chronic 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 -diabetic peripheral neuropathy -anxiety depression otherwise specified -Primary osteoarthritis -Chronic gait dysfunction uses a walker 03/04/2020, patient seen eval examined during the rounds labs reviewed medications reviewed, status post thoracentesis by IR, culture results and Gram stain pending, patient remains on broad-spectrum antibiotics of follow-up on that 03/03/2020, patient seen eval examined labs reviewed medications reviewed, patient is scheduled for IR to do the thoracentesis this afternoon respiratory status remains stable procedure has been explained to patient 03/02/2020, patient seen eval examined during the rounds labs reviewed medications reviewed, patient underwent ultrasound of the chest revealed large right-sided pleural effusion has been noted, patient will need a right-sided thoracentesis discussed with patient at length will proceed with a right-sided thoracentesis tomorrow 03/01/2020, patient seen eval examined during the rounds labs reviewed medications reviewed, respiratory status remained stable patient is more awake now denies any chest pain, hemodynamic status stable, oxygen saturation 95% remains afebrile, labs from today reviewed white cell count down to 5800 with stable hemoglobin, ID service has been following, chest x-ray however revealed bilateral moderate pleural effusion, more so on the right side compared to left side, This is a very pleasant [address] Navas. Chronic stable medical conditions include diabetes, hypertension, depression and anxiety, bilateral kidney stones, COPD , CK D stage III. patient is a resident of [facility] Does use a walker.both her and herself tested positive for COVID on January 21. was admitted to the hospital on January 27 and discharged on February 02. With COVID pneumonia.. February 08-admitted with features of abdominal pain with partial small bowel obstruction. some vaginal bleeding.patient is seen by Dr. Mckinney. Clinically doing better. Not for any further intervention. Also seen by Dr. Monroe. carried out a pelvic exam.- localized area of excoriation. Could be the source.also being treated for a UTI-Enterococcus faecalis. Complete course of Macrobid.. Computed tomography scan of the abdomen showed severe fecal stasis. Had a good response to laxative. February 16-discharged to [facility] for rehab. Now readmitted from the [facility]. dry cough. No fever no chills. Feels very tired. Decreased appetite. Diagnosed with-acute kidney injury, right lower lobe pneumonia felt to be bacterial. Zestoretic was held. IV fluids. IV cefepime. 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 -diabetic peripheral neuropathy -anxiety depression otherwise specified -Primary osteoarthritis -Chronic gait dysfunction uses a walker Patient Condition at Discharge: Fair Plan - Discharge Summary Discharge Rx Participant: No New Discharge Prescriptions: Continue Oxybutynin Chloride 5 mg PO BID@0800,1700 buPROPion XL [Wellbutrin XL] 150 mg PO DAILY@0800 Acetaminophen [Tylenol Arthritis] 650 mg PO BID PRN PRN Reason: Pain Albuterol Inhaler [Ventolin Hfa Inhaler] 2 puff INHALATION RT-QID #1 inhaler bisacodyL [Dulcolax] 10 mg RECTAL DAILY PRN PRN Reason: Constipation Zinc Sulfate [Orazinc] 220 mg PO DAILY@1700 Psyllium Husk 100% [Metamucil Packet] 6 gm PO BID@0800,1700 Pantoprazole [Protonix] 40 mg PO BID@0800,1700 Metoprolol Tartrate [Lopressor] 75 mg PO BID@0800,1700 Melatonin 3 mg PO HS@2099 Magnesium Hydroxide [Milk of Magnesia] 2,400 mg PO DAILY PRN PRN Reason: Constipation Lisinopril-Hctz 10-12.5 mg [Zestoretic 10-12.5] 1 tab PO BID@0800,1700 HYDROcodone/APAP 7.5-325MG [[place] 7.5-325] 1 tab PO BID@0800,1999 Gabapentin [Neurontin] 100 mg PO BID@0800,2099 Enoxaparin [Lovenox] 40 mg SQ DAILY@0800 No Action Na Phos,M-B/Na Phos,Di-Ba [Fleet Adult] 133 ml RECTAL DAILY PRN PRN Reason: Constipation Discharge Medication List Oxybutynin Chloride 5 mg PO BID@0800,1700 05/15/18 [History] buPROPion XL [Wellbutrin XL] 150 mg PO DAILY@0800 05/15/18 [History] Acetaminophen [Tylenol Arthritis] 650 mg PO BID PRN 01/22/20 [History] Albuterol Inhaler [Ventolin Hfa Inhaler] 2 puff INHALATION RT-QID #1 inhaler 01/23/20 [Rx] Enoxaparin [Lovenox] 40 mg SQ DAILY@0800 02/28/20 [History] Gabapentin [Neurontin] 100 mg PO BID@0800,209902/28/20 [History] HYDROcodone/APAP 7.5-325MG [[place] 7.5-325] 1 tab PO BID@0800,199902/28/20 [History] Lisinopril-Hctz 10-12.5 mg [Zestoretic 10-12.5] 1 tab PO BID@0800,1700 02/28/20 [History] Magnesium Hydroxide [Milk of Magnesia] 2,400 mg PO DAILY PRN 02/28/20 [History] Melatonin 3 mg PO HS@209902/28/20 [History] Metoprolol Tartrate [Lopressor] 75 mg PO BID@0800,1700 02/28/20 [History] Na Phos,M-B/Na Phos,Di-Ba [Fleet Adult] 133 ml RECTAL DAILY PRN 02/28/20 [History] Pantoprazole [Protonix] 40 mg PO BID@0800,1700 02/28/20 [History] Psyllium Husk 100% [Metamucil Packet] 6 gm PO BID@0800,1700 02/28/20 [History] Zinc Sulfate [Orazinc] 220 mg PO DAILY@1700 02/28/20 [History] bisacodyL [Dulcolax] 10 mg RECTAL DAILY PRN 02/28/20 [History] Follow up Appointment(s)/Referral(s): Savita Mckeon [NON-STAFF] - Alejandro Navas MD [Primary Care Provider] - 1-2 days Sandro Milian MD [STAFF PHYSICIAN] - 2 Weeks
[2020-03-05 14:05] VITALS: BP 139/81; PULSE 71; RESP 17; TEMP 98.6
--- NOTE | 2020-03-05 16:06 | PN ---
PROGRESS NOTE DATE OF SERVICE: 03/05/2020. REASON FOR FOLLOWUP: Pneumonia. INTERVAL HISTORY: The patient is currently afebrile. Patient is breathing comfortably. Denies any chest pain or shortness of breath. Occasional cough. No abdominal pain or diarrhea. PHYSICAL EXAMINATION: Blood pressure is 139/81 with a pulse of 71, temperature 98.6. She is 97% on room air. General description is an elderly female up in the chair in no distress. RESPIRATORY SYSTEM: Unlabored breathing, decreased intensity of breath sounds. No wheeze. HEART: S1, S2. Regular rate and rhythm. ABDOMEN: Soft. No tenderness. LABS: fluid culture so far negative. DIAGNOSTIC IMPRESSION AND PLAN: Patient admitted to the hospital with fever concerning for pneumonia, possible gram- negative. So far culture has been negative to resistant pathogen. She will be switched over to Avelox 400 daily for about a week and close outpatient followup. MMODL / IJN: [id number] /
[2020-03-05] MEDS: ZINC SULFATE 220 MG CAP PO SCH (16:08)
== END 2020-03-05 16:48 | disposition home health service (06) | DRG 178 ==
LOC: EC 23:50 → 4SSUR 02-28 01:44
PROVIDERS: ADMIT Hospitalist; ATTEND Hospitalist
PROC: 0W993ZX Drainage of Right Pleural Cavity, Percutaneous Approach, Diagnostic (ICD-10-PCS; principal; 2020-03-03)
DX: J15.6 Pneumonia due to other Gram-negative bacteria (principal); J44.0 Chronic obstructive pulmonary disease with (acute) lower respiratory infection; N17.9 Acute kidney failure, unspecified; J90 Pleural effusion, not elsewhere classified; B37.49 Other urogenital candidiasis; E11.22 Type 2 diabetes mellitus with diabetic chronic kidney disease; E11.42 Type 2 diabetes mellitus with diabetic polyneuropathy; N18.30 Chronic kidney disease, stage 3 unspecified; I95.9 Hypotension, unspecified; I12.9 Hypertensive chronic kidney disease with stage 1 through stage 4 chronic kidney disease, or unspecified chronic kidney disease; F41.8 Other specified anxiety disorders; Z20.828 Contact with and (suspected) exposure to other viral communicable diseases; M19.91 Primary osteoarthritis, unspecified site; R26.9 Unspecified abnormalities of gait and mobility; Z79.899 Other long term (current) drug therapy; Z86.19 Personal history of other infectious and parasitic diseases; Z87.81 Personal history of (healed) traumatic fracture; Z87.440 Personal history of urinary (tract) infections; Z90.710 Acquired absence of both cervix and uterus; Z87.42 Personal history of other diseases of the female genital tract; Z86.69 Personal history of other diseases of the nervous system and sense organs; Z98.84 Bariatric surgery status; Z87.442 Personal history of urinary calculi; Z87.01 Personal history of pneumonia (recurrent); Z98.890 Other specified postprocedural states; Z88.5 Allergy status to narcotic agent; Z88.0 Allergy status to penicillin; Z88.2 Allergy status to sulfonamides; Z83.3 Family history of diabetes mellitus; Z82.3 Family history of stroke; Z83.2 Family history of diseases of the blood and blood-forming organs and certain disorders involving the immune mechanism
CPT/HCPCS: 32555; 36415; 71045; 76604; 80048; 80053; 81001; 83605; 83615; 83735; 83880; 84145; 84155; 85025; 85027; 85379; 85610; 85730; 86140; 86850; 86900; 86901; 86920; 87040; 87070; 87075; 87086; 87205; 87635; 89050; 93005; 94640; 99285

== ENCOUNTER 2020-07-01 10:51 | Emergency (ER) | payer MEDICARE ==
[2020-07-01 11:04] VITALS: BP 134/61; PULSE 64; RESP 18; TEMP 97.9
[2020-07-01] MEDS ORDERED: SODIUM CHLORIDE 0.9% 1,000 ML IV STA (11:14)
--- NOTE | 2020-07-01 11:16 | ED ---
General Adult HPI - General Chief complaint: Nausea/Vomiting/Diarrhea Stated complaint: diarrhea Time Seen by Provider: 07/01/20 11:07 Source: patient, RN notes reviewed Mode of arrival: wheelchair Limitations: no limitations - History of Present Illness Initial comments: 69-year-old female with a past medical history of diabetes mellitus, hypertension, neuropathy, migraines presents to the emergency room for a chief complaint of diarrhea. Patient reports that she has had diarrhea for about 3 days now. States it is occurring several times per day. States she is able to eat and drink, denies nausea. She denies abdominal pain. Denies fevers. P atient also has some dysuria noted. She reports this is coupled with low back pain. She is concerned she may have a urinary tract infection as she gets these quite frequently.Patient has no other complaints at this time including shortness of breath, chest pain, abdominal pain, nausea or vomiting, headache, or visual changes. - Related Data Home Medications Medication Instructions Recorded Confirmed Oxybutynin Chloride 5 mg PO BID 05/15/18 07/01/20 buPROPion XL [Wellbutrin XL] 150 mg PO DAILY 05/15/18 07/01/20 Acetaminophen [Tylenol Arthritis] 650 mg PO BID PRN 01/22/20 07/01/20 Gabapentin [Neurontin] 100 mg PO BID 02/28/20 07/01/20 HYDROcodone/APAP 7.5-325MG [[place] 1 tab PO QID PRN 02/28/20 07/01/20 7.5-325] Metoprolol Tartrate [Lopressor] 50 mg PO BID 02/28/20 07/01/20 Omeprazole 20 mg PO DAILY 07/01/20 07/01/20 Previous Rx's Medication Instructions Recorded Cephalexin [Keflex] 500 mg PO Q6HR 10 Days #40 cap 07/01/20 Loperamide [Imodium] 2 mg PO BID PRN #10 capsule 07/01/20 Allergies Allergy/AdvReac Type Severity Reaction Status Date / Time meperidine [From Demerol] AdvReac Nausea & Verified 07/01/20 11:28 Vomiting Penicillins AdvReac "FALLS Verified 07/01/20 11:28 ALOT" Sulfa (Sulfonamide AdvReac Nausea & Verified 07/01/20 11:28 Antibiotics) Vomiting Review of Systems ROS Statement: Those systems with pertinent positive or pertinent negative responses have been documented in the HPI. ROS Other: All systems not noted in ROS Statement are negative. Past Medical History Past Medical History: Diabetes Mellitus, Hypertension, Neurologic Disorder Additional Past Medical History / Comment(s): NEUROPATHY, MIGRAINES, fractured right shoulder, urine MDRO History of Any Multi-Drug Resistant Organisms: Other MDRO MDRO Source:: urine Past Surgical History: Bariatric Surgery, Bladder Surgery, Hysterectomy Additional Past Surgical History / Comment(s): ORAL SURGERY. COLONOSCOPY. LAP BAND THEN HAD BARIATRIC SURGERY;. bladder surgery may have been for a benign cyst but is not sure. 16 LBS ABD. TISSUE REMOVED Past Anesthesia/Blood Transfusion Reactions: No Reported Reaction Past Psychological History: Anxiety, Depression Smoking Status: Never smoker Past Alcohol Use History: None Reported Past Drug Use History: None Reported - Past Family History Mother Family Medical History: Diabetes Mellitus Additional Family Medical History / Comment(s): At [facility] with UTI. Father Family Medical History: CVA/TIA, Diabetes Mellitus Sister(s) Family Medical History: Deep Vein Thrombosis (DVT) General Exam Limitations: no limitations General appearance: alert, in no apparent distress Head exam: Present: atraumatic, normocephalic, normal inspection Eye exam: Present: normal appearance, PERRL, EOMI. Absent: scleral icterus, conjunctival injection, periorbital swelling ENT exam: Present: normal exam, mucous membranes moist Neck exam: Present: normal inspection Respiratory exam: Present: normal lung sounds bilaterally. Absent: respiratory distress, wheezes, rales, rhonchi, stridor Cardiovascular Exam: Present: regular rate, normal rhythm, normal heart sounds. Absent: systolic murmur, diastolic murmur, rubs, gallop, clicks GI/Abdominal exam: Present: soft, normal bowel sounds. Absent: distended, tenderness, guarding, rebound, rigid Back exam: Absent: CVA tenderness (R), CVA tenderness (L) Course Vital Signs 07/01/20 10:59 Temperature 97.9 F Pulse Rate 64 Respiratory 18 Rate Blood Pressure 134/61 O2 Sat by Pulse 97 Oximetry Medical Decision Making - Medical Decision Making Vitals are stable. Patient is well-appearing. No abdominal tenderness. CBC unremarkable. CMP does show chronic kidney disease. Stable for patient. Urinalysis however does show evidence of infection. I did review patient's 2 previous cultures and she is sensitive to penicillins and cephalosporins. patient will be started on Keflex after receiving a dose of Rocephin in the emergency room. We will give patient a few Imodium pills however directed her to only take this if she is having significant diarrhea. She will follow up with primary care and return here otherwise - Lab Data Result diagrams: 07/01/20 12:14 07/01/20 12:14 Lab Results 07/01/20 07/01/20 07/01/20 Range/Units 12:14 12:14 12:44 WBC 4.9 (3.8-10.6) k/uL RBC 3.75 L (3.80-5.40) m/uL Hgb 11.0 L (11.4-16.0) gm/dL Hct 35.5 (34.0-46.0) % MCV 94.8 (80.0-100.0) fL MCH 29.4 (25.0-35.0) pg MCHC 31.0 (31.0-37.0) g/dL RDW 15.4 (11.5-15.5) % Plt Count 246 (150-450) k/uL MPV 7.7 Neutrophils % 51 % Lymphocytes % 36 % Monocytes % 4 % Eosinophils % 6 % Basophils % 1 % Neutrophils # 2.5 (1.3-7.7) k/uL Lymphocytes # 1.8 (1.0-4.8) k/uL Monocytes # 0.2 (0-1.0) k/uL Eosinophils # 0.3 (0-0.7) k/uL Basophils # 0.0 (0-0.2) k/uL Hypochromasia Slight Sodium 136 L (137-145) mmol/L Potassium 5.3 H (3.5-5.1) mmol/L Chloride 109 H (98-107) mmol/L Carbon Dioxide 19 L (22-30) mmol/L Anion Gap 8 mmol/L BUN 22 H (7-17) mg/dL Creatinine 1.20 H (0.52-1.04) mg/dL Est GFR (CKD-EPI)AfAm 53 (>60 ml/min/1.73 sqM) Est GFR (CKD-EPI)NonAf 46 (>60 ml/min/1.73 sqM) Glucose 101 H (74-99) mg/dL Calcium 9.0 (8.4-10.2) mg/dL Total Bilirubin 0.4 (0.2-1.3) mg/dL AST 22 (14-36) U/L ALT 9 (4-34) U/L Alkaline Phosphatase 108 (38-126) U/L Total Protein 6.0 L (6.3-8.2) g/dL Albumin 3.4 L (3.5-5.0) g/dL Lipase 134 (23-300) U/L Urine Color Yellow Urine Appearance Cloudy H (Clear) Urine pH 5.5 (5.0-8.0) Ur Specific [place] 1.016 (1.001-1.035) Urine Protein Trace H (Negative) Urine Glucose (UA) Negative (Negative) Urine Ketones Trace H (Negative) Urine Blood Moderate H (Negative) Urine Nitrite Negative (Negative) Urine Bilirubin Negative (Negative) Urine Urobilinogen <2.0 (<2.0) mg/dL Ur Leukocyte Esterase Large H (Negative) Urine RBC 50 H (0-5) /hpf Urine WBC >182 H (0-5) /hpf Ur Squamous Epith Cells 1 (0-4) /hpf Urine Bacteria Many H (None) /hpf Disposition Clinical Impression: UTI (urinary tract infection), Diarrhea Disposition: HOME SELF-CARE Condition: Good Instructions (If sedation given, give patient instructions): Acute Diarrhea (ED) Additional Instructions: please drink plenty of fluids. Take antibiotic as directed. Take Imodium only as needed up to twice per day for diarrhea. Follow up on culture results for urine. If you have any worsening symptoms return to the emergency room. Otherwise make sure to follow up with primary care soon as possible. Prescriptions: Loperamide [Imodium] 2 mg PO BID PRN #10 capsule PRN Reason: Diarrhea Cephalexin [Keflex] 500 mg PO Q6HR 10 Days #40 cap Is patient prescribed a controlled substance at d/c from ED?: No Referrals: Alejandro Navas MD [Primary Care Provider] - 1-2 days Time of Disposition: 13:41
[2020-07-01 12:35] LABS: Basophils % (A) 1 %; Eosinophils # (A) 0.3 k/uL (0-0.7); Eosinophils % (A) 6 %; HCT 35.5 % (34.0-46.0); Hypochromasia Slight; Lymphocytes # (A) 1.8 k/uL (1.0-4.8); Lymphocytes % (A) 36 %; MCH 29.4 pg (25.0-35.0); MCV 94.8 fL (80.0-100.0); Mean Platelet Volume 7.7; Monocytes # (A) 0.2 k/uL (0-1.0); Monocytes % (A) 4 %; Neutrophils # (A) 2.5 k/uL (1.3-7.7); Neutrophils % (A) 51 %; Platelet Count 246 k/uL (150-450); RBC 3.75 m/uL (3.80-5.40); RDW 15.4 % (11.5-15.5); WBC 4.9 k/uL (3.8-10.6)
[2020-07-01 12:43] LABS: Albumin 3.4 g/dL (3.5-5.0); Potassium 5.3 mmol/L (3.5-5.1); Total Bilirubin 0.4 mg/dL (0.2-1.3)
[2020-07-01 12:56] LABS: Appearance,Urine Cloudy (Clear); Bacteria,Urine Many /hpf; Bilirubin,Urine Negative (Negative); Blood,Urine Moderate (Negative); Color,Urine Yellow; Glucose,Urine (UA) Negative (Negative); Ketones,Urine Trace (Negative); Leukocyte Esterase,Urine Large (Negative); Nitrite,Urine Negative (Negative); PH, Urine 5.5 (5.0-8.0); Protein,Urine Trace (Negative); RBC,Urine 50 /hpf (0-5); Specific Gravity,Urine 1.016 (1.001-1.035); Squamous Epithelial Cell,Urine 1 /hpf (0-4); Urobilinogen,Urine <2.0 mg/dL (<2.0); WBC,Urine >182 /hpf (0-5)
[2020-07-01] MEDS ORDERED: cefTRIAXone IN SWFI 1,000 MG/10 ML SYRINGE IVP STA (13:33)
[2020-07-01] MEDS ORDERED: CEPHALEXIN 500MG STARTER PACK 4 CAP BTL PO STA (13:42)
== END 2020-07-01 14:20 | disposition home or self-care (01) ==
LOC: EC 10:51
DX: N39.0 Urinary tract infection, site not specified (principal); R19.7 Diarrhea, unspecified; M54.5 Low back pain; E11.22 Type 2 diabetes mellitus with diabetic chronic kidney disease; I12.9 Hypertensive chronic kidney disease with stage 1 through stage 4 chronic kidney disease, or unspecified chronic kidney disease; N18.9 Chronic kidney disease, unspecified; E11.40 Type 2 diabetes mellitus with diabetic neuropathy, unspecified; G43.909 Migraine, unspecified, not intractable, without status migrainosus; F32.9 Major depressive disorder, single episode, unspecified; F41.9 Anxiety disorder, unspecified; Z88.0 Allergy status to penicillin; Z79.899 Other long term (current) drug therapy
CPT/HCPCS: 36415; 80053; 83690; 85025; 81001; 87086; 99284; 96374; 96361; J0696

== ENCOUNTER 2020-12-17 12:18 | Emergency (ER) | payer MEDICARE ==
[2020-12-17 12:34] VITALS: RESP 16; TEMP 98.3
[2020-12-17 13:25] LABS: Appearance,Urine Cloudy (Clear); Bacteria,Urine Rare /hpf; Bilirubin,Urine Negative (Negative); Blood,Urine Moderate (Negative); Color,Urine Light Yellow; Glucose,Urine (UA) Negative (Negative); Ketones,Urine Negative (Negative); Leukocyte Esterase,Urine Large (Negative); Mucus,Urine Rare /hpf; Nitrite,Urine Positive (Negative); Protein,Urine Trace (Negative); RBC,Urine 24 /hpf (0-5); Specific Gravity,Urine 1.018 (1.001-1.035); Squamous Epithelial Cell,Urine 1 /hpf (0-4); Urobilinogen,Urine <2.0 mg/dL (<2.0); WBC,Urine >182 /hpf (0-5)
[2020-12-17] MEDS ORDERED: cefTRIAXone IN SWFI 1,000 MG/10 ML SYRINGE IVP STA (14:17)
[2020-12-17] MEDS ORDERED: SODIUM CHLORIDE 0.9% 500 ML 500 ML IV STA (14:17)
[2020-12-17] MEDS ORDERED: LEVOFLOXACIN 500MG-D5W PMX 500 MG in DEXTROSE/WATER 1 100ML.BAG IVPB STA (14:39)
--- NOTE | 2020-12-17 14:39 | ED ---
General Adult HPI - General Chief complaint: Recheck/Abnormal Lab/Rx Stated complaint: UTI Time Seen by Provider: 12/17/20 14:04 Source: patient Mode of arrival: wheelchair Limitations: no limitations - History of Present Illness Initial comments: 70-year-old female presents to the emergency room for a chief complaint of urinary tract infection. Patient has had a urinary tract infection for about 2 weeks now. Patient states she just finished a seven-day course of antibiotics. Patient is unsure what this was. Patient states she got a call from her doctor did tell her that that antibiotic wouldn't work and to go to the emergency room. Patient states she was told she would get a dose of antibiotics and then discharged home. Patient has had chills at home but is otherwise feeling well.Patient has no other complaints at this time including shortness of breath, chest pain, abdominal pain, nausea or vomiting, headache, or visual changes. - Related Data Home Medications Medication Instructions Recorded Confirmed Oxybutynin Chloride 5 mg PO BID 05/15/18 07/01/20 buPROPion XL [Wellbutrin XL] 150 mg PO DAILY 05/15/18 07/01/20 Gabapentin [Neurontin] 100 mg PO BID 02/28/20 07/01/20 HYDROcodone/APAP 7.5-325MG [[place] 1 tab PO QID PRN 02/28/20 07/01/20 7.5-325] Metoprolol Tartrate [Lopressor] 50 mg PO BID 02/28/20 07/01/20 Omeprazole 20 mg PO DAILY 07/01/20 07/01/20 Cefuroxime [Ceftin] 250 mg PO BID 12/17/20 12/17/20 Previous Rx's Medication Instructions Recorded Ciprofloxacin HCl [Cipro] 500 mg PO Q12H 7 Days #14 tab 12/17/20 Allergies Allergy/AdvReac Type Severity Reaction Status Date / Time meperidine [From Demerol] AdvReac Nausea & Verified 12/17/20 14:38 Vomiting Penicillins AdvReac "FALLS Verified 12/17/20 14:38 ALOT" Sulfa (Sulfonamide AdvReac Nausea & Verified 12/17/20 14:38 Antibiotics) Vomiting Review of Systems ROS Statement: Those systems with pertinent positive or pertinent negative responses have been documented in the HPI. ROS Other: All systems not noted in ROS Statement are negative. Past Medical History Past Medical History: Diabetes Mellitus, Hypertension, Neurologic Disorder Additional Past Medical History / Comment(s): NEUROPATHY, MIGRAINES, fractured right shoulder, urine MDRO History of Any Multi-Drug Resistant Organisms: Other MDRO MDRO Source:: urine Past Surgical History: Bariatric Surgery, Bladder Surgery, Hysterectomy Additional Past Surgical History / Comment(s): ORAL SURGERY. COLONOSCOPY. LAP BAND THEN HAD BARIATRIC SURGERY;. bladder surgery may have been for a benign cyst but is not sure. 16 LBS ABD. TISSUE REMOVED Past Anesthesia/Blood Transfusion Reactions: No Reported Reaction Past Psychological History: Anxiety, Depression Smoking Status: Never smoker Past Alcohol Use History: None Reported Past Drug Use History: None Reported - Past Family History Mother Family Medical History: Diabetes Mellitus Additional Family Medical History / Comment(s): At [facility] with UTI. Father Family Medical History: CVA/TIA, Diabetes Mellitus Sister(s) Family Medical History: Deep Vein Thrombosis (DVT) General Exam Limitations: no limitations General appearance: alert, in no apparent distress Head exam: Present: atraumatic Eye exam: Present: normal appearance, PERRL, EOMI. Absent: scleral icterus, conjunctival injection ENT exam: Present: normal exam, mucous membranes moist Neck exam: Present: normal inspection, full ROM. Absent: tenderness Respiratory exam: Present: normal lung sounds bilaterally. Absent: respiratory distress, wheezes Cardiovascular Exam: Present: regular rate, normal rhythm, normal heart sounds GI/Abdominal exam: Present: soft, normal bowel sounds. Absent: distended, te nderness Back exam: Absent: CVA tenderness (R), CVA tenderness (L) Course Vital Signs 12/17/20 12:32 Temperature 98.3 F Pulse Rate 61 Respiratory 16 Rate Blood Pressure 133/75 O2 Sat by Pulse 91 L Oximetry Medical Decision Making - Medical Decision Making Vitals are stable. Patient is well-appearing. No abdominal or CVA tenderness. Urinalysis does show evidence of infection. I did have pharmacy staff identified patient's antibiotic which is cefuroxime. I then obtained the records of patient's culture from her primary care physician. Patient was resistant to cephalosporins however sensitive to ciprofloxacin and Levaquin. Unfortunately she is also sensitive to Bactrim but is ALLERGIC to this. She is indeterminant to nitrofurantoin. At this time although there are black box warnings regarding Cipro it is in patient's best interest to start her on a fluoroquinolone. Patient was given a dose IV. Patient will be discharged home on a fluoroquinolone which is sensitive. We will repeat a culture here to ensure this. Case was discussed with Dr. Avery. - Lab Data Lab Results 12/17/20 Range/Units 12:41 Urine Color Light Yellow Urine Appearance Cloudy H (Clear) Urine pH 6.0 (5.0-8.0) Ur Specific [place] 1.018 (1.001-1.035) Urine Protein Trace H (Negative) Urine Glucose (UA) Negative (Negative) Urine Ketones Negative (Negative) Urine Blood Moderate H (Negative) Urine Nitrite Positive H (Negative) Urine Bilirubin Negative (Negative) Urine Urobilinogen <2.0 (<2.0) mg/dL Ur Leukocyte Esterase Large H (Negative) Urine RBC 24 H (0-5) /hpf Urine WBC >182 H (0-5) /hpf Urine WBC Clumps Occasional H (None) /hpf Ur Squamous Epith Cells 1 (0-4) /hpf Urine Bacteria Rare H (None) /hpf Urine Mucus Rare H (None) /hpf Disposition Clinical Impression: UTI (urinary tract infection) Disposition: HOME SELF-CARE Condition: Good Instructions (If sedation given, give patient instructions): Urinary Tract Infection in Women (ED) Additional Instructions: Take antibiotic as directed starting tomorrow as you were given a dose IV in the ER. Drink plenty of fluids. Follow-up with your doctor. Return to the emergency room for any worsening symptoms. Prescriptions: Ciprofloxacin HCl [Cipro] 500 mg PO Q12H 7 Days #14 tab Is patient prescribed a controlled substance at d/c from ED?: No Referrals: Alejandro Navas MD [Primary Care Provider] - 1-2 days Time of Disposition: 14:52
[2020-12-17 14:47] LABS: Basophils % (A) 0 %; Eosinophils # (A) 0.2 k/uL (0-0.7); Eosinophils % (A) 3 %; HCT 35.1 % (34.0-46.0); HGB 10.6 gm/dL (11.4-16.0); Hypochromasia Moderate; Lymphocytes # (A) 1.8 k/uL (1.0-4.8); Lymphocytes % (A) 28 %; MCH 29.8 pg (25.0-35.0); MCHC 30.2 g/dL (31.0-37.0); MCV 98.6 fL (80.0-100.0); Mean Platelet Volume 8.2; Monocytes # (A) 0.4 k/uL (0-1.0); Monocytes % (A) 6 %; Neutrophils % (A) 61 %; Platelet Count 191 k/uL (150-450); RBC 3.56 m/uL (3.80-5.40); WBC 6.5 k/uL (3.8-10.6)
[2020-12-17 14:55] LABS: Albumin 3.2 g/dL (3.5-5.0); Calcium 8.3 mg/dL (8.4-10.2); Potassium 5.3 mmol/L (3.5-5.1); Total Bilirubin 0.3 mg/dL (0.2-1.3); Total Protein 5.7 g/dL (6.3-8.2)
[2020-12-17 15:20] VITALS: BP 128/78; PULSE 68
== END 2020-12-17 15:21 | disposition home or self-care (01) ==
LOC: EC 12:18
DX: N39.0 Urinary tract infection, site not specified (principal); E11.40 Type 2 diabetes mellitus with diabetic neuropathy, unspecified; I10 Essential (primary) hypertension; F32.9 Major depressive disorder, single episode, unspecified; F41.9 Anxiety disorder, unspecified; Z88.0 Allergy status to penicillin; Z88.2 Allergy status to sulfonamides; Z88.5 Allergy status to narcotic agent; Z83.3 Family history of diabetes mellitus; Z79.899 Other long term (current) drug therapy
CPT/HCPCS: 36415; 80053; 83605; 85025; 81001; 87040; 87086; 96365; 99283; J1956

== ENCOUNTER 2021-12-18 15:54 | Emergency (ER) | payer MEDICARE ==
[2021-12-18 16:21] VITALS: TEMP 99
[2021-12-18] MEDS ORDERED: ACETAMINOPHEN TAB 500 MG TAB PO STA (16:24)
--- NOTE | 2021-12-18 16:38 | ED ---
General Adult HPI - General Chief complaint: Extremity Injury, Upper Stated complaint: Weakness/Fall Time Seen by Provider: 12/18/21 15:57 Source: patient, RN notes reviewed, old records reviewed Mode of arrival: EMS Limitations: no limitations - History of Present Illness Initial comments: Patient is a 71-year-old female with past medical history remarkable for diet- controlled diabetes, hypertension who presents emergency Department complaining of somewhat worse generalized weakness over the last few days. She aches. The fall at home. She states that she was walking with her walker and rolled over her right foot which caused her to fall down onto her right side. She did not hit her head. She did not lose conscious. She is not on blood thinners. She has no lower extremity pain. She is endorsing pain over her right wrist and hand. Decreased range of motion secondary to pain. No sensory deficits. Denies any chest pain, shortness of breath, abdominal pain, nausea, vomiting. Does endorse some diarrhea which is typical for her. Denies any known sick contacts. Denies any nasal congestion, sore throat, cough. No fevers or chills. Presents for further evaluation at this time. Does have a history of UTIs and is concerned that she may be experiencing 1. Denies dysuria or hematuria. Prior UTI present with weakness. She states she still is able to ambulate with her walker since symptoms began, which is baseline for her. - Related Data Home Medications Medication Instructions Recorded Confirmed Oxybutynin Chloride 5 mg PO BID 05/15/18 12/17/20 buPROPion XL [Wellbutrin XL] 150 mg PO DAILY 05/15/18 12/17/20 Gabapentin [Neurontin] 100 mg PO BID 02/28/20 12/17/20 HYDROcodone/APAP 7.5-325MG [[place] 1 tab PO Q6H PRN 02/28/20 12/17/20 7.5-325] Metoprolol Tartrate [Lopressor] 50 mg PO BID 02/28/20 12/17/20 Omeprazole 20 mg PO DAILY 07/01/20 12/17/20 Cefuroxime [Ceftin] 250 mg PO BID 12/17/20 12/17/20 Previous Rx's Medication Instructions Recorded Ciprofloxacin HCl [Cipro] 500 mg PO Q12H 7 Days #14 tab 12/17/20 Cephalexin [Keflex] 500 mg PO Q12HR 7 Days #14 cap 12/18/21 Allergies Allergy/AdvReac Type Severity Reaction Status Date / Time meperidine [From Demerol] AdvReac Nausea & Verified 12/18/21 16:06 Vomiting Penicillins AdvReac "FALLS Verified 12/18/21 16:06 ALOT" Sulfa (Sulfonamide AdvReac Nausea & Verified 12/18/21 16:06 Antibiotics) Vomiting Review of Systems ROS Statement: Those systems with pertinent positive or pertinent negative responses have been documented in the HPI. Review of Systems: CONST: Denies fever EYES: Denies blurry vision ENT: Denies nasal congestion C/V: Denies Chest pain RESP: Denies shortness of breath GI: Denies abdominal pain : Denies dysuria SKIN: Denies rash. MSK: Endorses right wrist pain. NEURO: Denies headache ROS Other: All systems not noted in ROS Statement are negative. 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 COLONOSCOPY. LAP BAND THEN HAD BARIATRIC SURGERY;. bladder surgery may have been for a benign c yst but is not sure. 16 LBS ABD. TISSUE REMOVED Past Anesthesia/Blood Transfusion Reactions: No Reported Reaction Past Psychological History: Anxiety, Depression Smoking Status: Never smoker Past Alcohol Use History: None Reported Past Drug Use History: None Reported - Past Family History Mother Family Medical History: Diabetes Mellitus Additional Family Medical History / Comment(s): At [facility] with UTI. Father Family Medical History: CVA/TIA, Diabetes Mellitus Sister(s) Family Medical History: Deep Vein Thrombosis (DVT) General Exam - General Exam Comments Initial Comments: General: Appears in no acute distress. HEAD: Normal with no signs of head trauma. EYES: PERRLA, EOMI, conjunctiva normal, no discharge. Pupils 3 mm and equal bilaterally. ENT: Hearing grossly intact, normal oropharynx. RESPIRATORY: Clear breath sounds bilaterally. No wheezes, rales, or rhonchi. C/V: Regular rate and rhythm. S1 and S2 auscultated, no edema, peripheral pulses 2+ and intact throughout ABD: Abd is soft, nontender, nondistended EXT: Normal range of motion, no obvious deformity. No midline spinal tenderness to palpation. Pelvis is stable. No tenderness to palpation of the bilateral lower extremities. Left upper extremity within normal limits. Patient does have a history of a unrepaired right shoulder fracture for multiple years ago w [facility] is at baseline for her. She does have tenderness palpation over the right wrist, primarily on the lateral aspect on the dorsal side as well as the dorsal aspect of her right hand. Pain is amplified when making a fist. Normal finger movements otherwise. No sensory deficits. No snuffbox tenderness. SKIN: No rashes or lesions observed on exposed skin. NEURO: Alert and oriented 4. GCS of 15. No focal sensory strength deficits. Ambulates with a walker at baseline. Limitations: no limitations Course Vital Signs 12/18/21 12/18/21 12/18/21 16:00 16:43 17:40 Temperature 99 F Pulse Rate 90 84 68 Respiratory 20 16 16 Rate Blood Pressure 138/77 138/77 138/81 O2 Sat by Pulse 94 L 97 93 L Oximetry 12/18/21 19:50 Temperature Pulse Rate 71 Respiratory 15 Rate Blood Pressure 125/67 O2 Sat by Pulse 98 Oximetry Medical Decision Making - Medical Decision Making Based on the patient's presentation and physical exam, I do believe she expressed a mechanical fall and is currently complaining only of right wrist pain. We will obtain screening x-rays as well as a screening EKG and basic labs including urinalysis as patient states she has been feeling somewhat more weak than normal. Has no other acute complaints at this time. No obvious infection symptoms. Laboratory studies are pending. Vital signs within normal limits. She was in agreement with this plan. She'll be given Tylenol for pain control. EKG showed no signs of acute ischemia.Patient's laboratory studies are remarkable for CK D. Urinalysis is positive for UTI. Covid is negative. Patient's imaging of her chest and pelvis are unremarkable. Patient's hand and wrist x-ray reveals a acute impacted transverse distal radial metaphyseal fracture. No dislocation. Well aligned. Neurovascular intact. I updated the patient. She would like to go home. Her takes care of her. She does have a wheelchair at home. Will follow up with orthopedics after the weekend. Has previously followed up with away, and therefore will be given follow-up information for her right wrist fracture. She was placed in a radial gutter/thumb spica splint. Had intact pulses/Refill/sensation following splinting. She'll be given antibiotics for her UTI. They were in agreement this plan. Was given a dose of Rocephin prior to discharge. She already has pain medications at home and does not require more. I will provide the patient with a prescription for Keflex. I instructed the patient to follow up with their PCP in the next 1-3 days. I provided contact information for follow up with orthopedics. I explained that the patient should return to the emergency department if they experience any worsening symptoms. Strict return precautions were discussed with the patient. The patient expressed understanding of these instructions. I answered all questions that the patient had. The patient was discharged home in fair condition with their prescriptions and follow up information. - Lab Data Result diagrams: 12/18/21 16:42 12/18/21 16:42 Lab Results 12/18/21 12/18/21 12/18/21 Range/Units 16:42 16:42 16:42 WBC 9.6 (3.8-10.6) k/uL RBC 4.03 (3.80-5.40) m/uL Hgb 11.0 L (11.4-16.0) gm/dL Hct 35.1 (34.0-46.0) % MCV 87.3 (80.0-100.0) fL MCH 27.2 (25.0-35.0) pg MCHC 31.2 (31.0-37.0) g/dL RDW 16.2 H (11.5-15.5) % Plt Count 211 (150-450) k/uL MPV 8.7 Neutrophils % 90 % Lymphocytes % 7 % Monocytes % 3 % Eosinophils % 0 % Basophils % 0 % Neutrophils # 8.6 H (1.3-7.7) k/uL Lymphocytes # 0.6 L (1.0-4.8) k/uL Monocytes # 0.3 (0-1.0) k/uL Eosinophils # 0.0 (0-0.7) k/uL Basophils # 0.0 (0-0.2) k/uL Hypochromasia Marked Anisocytosis Slight Sodium 135 L (137-145) mmol/L Potassium 4.5 (3.5-5.1) mmol/L Chloride 100 (98-107) mmol/L Carbon Dioxide 21 L (22-30) mmol/L Anion Gap 14 mmol/L BUN 23 H (7-17) mg/dL Creatinine 1.25 H (0.52-1.04) mg/dL Est GFR (CKD-EPI)AfAm 50 (>60 ml/min/1.73 sqM) Est GFR (CKD-EPI)NonAf 44 (>60 ml/min/1.73 sqM) Glucose 143 H (74-99) mg/dL Calcium 8.4 (8.4-10.2) mg/dL Urine Color Urine Appearance (Clear) Urine pH (5.0-8.0) Ur Specific [place] (1.001-1.035) Urine Protein (Negative) Urine Glucose (UA) (Negative) Urine Ketones (Negative) Urine Blood (Negative) Urine Nitrite (Negative) Urine Bilirubin (Negative) Urine Urobilinogen (<2.0) mg/dL Ur Leukocyte Esterase (Negative) Urine RBC (0-5) /hpf Urine WBC (0-5) /hpf Urine WBC Clumps (None) /hpf Urine Bacteria (None) /hpf Urine Mucus (None) /hpf Coronavirus (PCR) Not Detected (Not Detectd) 12/18/21 Range/Units 17:40 WBC (3.8-10.6) k/uL RBC (3.80-5.40) m/uL Hgb (11.4-16.0) gm/dL Hct (34.0-46.0) % MCV (80.0-100.0) fL MCH (25.0-35.0) pg MCHC (31.0-37.0) g/dL RDW (11.5-15.5) % Plt Count (150-450) k/uL MPV Neutrophils % % Lymphocytes % % Monocytes % % Eosinophils % % Basophils % % Neutrophils # (1.3-7.7) k/uL Lymphocytes # (1.0-4.8) k/uL Monocytes # (0-1.0) k/uL Eosinophils # (0-0.7) k/uL Basophils # (0-0.2) k/uL Hypochromasia Anisocytosis Sodium (137-145) mmol/L Potassium (3.5-5.1) mmol/L Chloride (98-107) mmol/L Carbon Dioxide (22-30) mmol/L Anion Gap mmol/L BUN (7-17) mg/dL Creatinine (0.52-1.04) mg/dL Est GFR (CKD-EPI)AfAm (>60 ml/min/1.73 sqM) Est GFR (CKD-EPI)NonAf (>60 ml/min/1.73 sqM) Glucose (74-99) mg/dL Calcium (8.4-10.2) mg/dL Urine Color Light Yellow Urine Appearance Cloudy H (Clear) Urine pH 5.5 (5.0-8.0) Ur Specific [place] 1.012 (1.001-1.035) Urine Protein 1+ H (Negative) Urine Glucose (UA) Negative (Negative) Urine Ketones Negative (Negative) Urine Blood Small H (Negative) Urine Nitrite Positive H (Negative) Urine Bilirubin Negative (Negative) Urine Urobilinogen <2.0 (<2.0) mg/dL Ur Leukocyte Esterase Large H (Negative) Urine RBC 6 H (0-5) /hpf Urine WBC 94 H (0-5) /hpf Urine WBC Clumps Many H (None) /hpf Urine Bacteria Many H (None) /hpf Urine Mucus Rare H (None) /hpf Coronavirus (PCR) (Not Detectd) - EKG Data -: EKG Interpreted by Me EKG Comments: 12-lead Electrocardiogram Interpretation Note EKG was reviewed and interpreted by myself. 12-lead ECG performed at 1620 is interpreted by me as revealing normal sinus rhythm at a rate of 83 beats per minute. [place] is normal. NV interval is 170 ms, QRS duration is 86 ms, QTc is 396 ms. There were no ST or T wave abnormalities to suggest myocardial ischemia or injury. R wave progression across the precordium was satisfactory. By my interpretation this EKG is non-diagnostic for acute ischemia. Disposition Clinical Impression: Right radial fracture, UTI (urinary tract infection) Disposition: HOME SELF-CARE Condition: Fair Instructions (If sedation given, give patient instructions): Wrist Fracture in Adults (ED) Prescriptions: Cephalexin [Keflex] 500 mg PO Q12HR 7 Days #14 cap Is patient prescribed a controlled substance at d/c from ED?: No Referrals: Alejandro Navas MD [Primary Care Provider] - 1-2 days Candido Syed DO [Doctor of Osteopathic Medicine] - 1-2 days Time of Disposition: 18:30
[2021-12-18 16:54] LABS: Anisocytosis Slight; Basophils % (A) 0 %; Eosinophils % (A) 0 %; HCT 35.1 % (34.0-46.0); Hypochromasia Marked; Lymphocytes # (A) 0.6 k/uL (1.0-4.8); Lymphocytes % (A) 7 %; MCH 27.2 pg (25.0-35.0); MCHC 31.2 g/dL (31.0-37.0); MCV 87.3 fL (80.0-100.0); Mean Platelet Volume 8.7; Monocytes # (A) 0.3 k/uL (0-1.0); Monocytes % (A) 3 %; Neutrophils # (A) 8.6 k/uL (1.3-7.7); Neutrophils % (A) 90 %; Platelet Count 211 k/uL (150-450); RBC 4.03 m/uL (3.80-5.40); RDW 16.2 % (11.5-15.5); WBC 9.6 k/uL (3.8-10.6)
[2021-12-18 17:05] LABS: Calcium 8.4 mg/dL (8.4-10.2); Potassium 4.5 mmol/L (3.5-5.1)
--- NOTE | 2021-12-18 17:30 | XR ---
EXAMINATION TYPE: XR hand complete RT DATE OF EXAM: 12/18/2021 COMPARISON: NONE HISTORY: Fall. Pain TECHNIQUE: Routine views FINDINGS: There is impacted transverse fracture distal radial metaphysis. No dislocation. There is os teopenia. There is some spurring at the first carpometacarpal joint. Distal ulna appears intact. IMPRESSION: Acute impacted transverse fracture distal radial metaphysis.
--- NOTE | 2021-12-18 17:30 | XR ---
EXAMINATION TYPE: XR wrist complete RT DATE OF EXAM: 12/18/2021 COMPARISON: NONE HISTORY: Fall. Pain TECHNIQUE: 4 views FINDINGS: There is acute transverse impacted fracture distal radial metaphysis. No dislocation. Dista l ulna appears intact. Carpal bones are intact. Scaphoid appears normal. There is osteopenia. IMPRESSION: Acute impacted transverse distal radial metaphyseal fracture.
--- NOTE | 2021-12-18 17:32 | XR ---
EXAMINATION TYPE: XR chest 1V DATE OF EXAM: 12/18/2021 COMPARISON: NONE HISTORY: Fall. Pain TECHNIQUE: Single view FINDINGS: There is blunting of the right costophrenic angle. Heart size is normal. No heart failure. Left lung is fairly clear. IMPRESSION: There is chronic right pleural effusion not significantly different than old exam. No obv ious heart failure.
--- NOTE | 2021-12-18 17:34 | XR ---
EXAMINATION TYPE: XR pelvis AP view DATE OF EXAM: 12/18/2021 COMPARISON: NONE HISTORY: Fall. Pain TECHNIQUE: Single view FINDINGS: Pelvic ring is intact. Proximal femurs are intact. There is acetabular spurring. Sacroiliac joints are intact. IMPRESSION: Osteopenia. No fracture seen.
[2021-12-18] MEDS ORDERED: SODIUM CHLORIDE 0.9% 1,000 ML IV STA (17:49)
[2021-12-18 17:53] LABS: Appearance,Urine Cloudy (Clear); Bacteria,Urine Many /hpf; Bilirubin,Urine Negative (Negative); Blood,Urine Small (Negative); Color,Urine Light Yellow; Glucose,Urine (UA) Negative (Negative); Ketones,Urine Negative (Negative); Leukocyte Esterase,Urine Large (Negative); Mucus,Urine Rare /hpf; Nitrite,Urine Positive (Negative); PH, Urine 5.5 (5.0-8.0); Protein,Urine 1+ (Negative); RBC,Urine 6 /hpf (0-5); Specific Gravity,Urine 1.012 (1.001-1.035); Urobilinogen,Urine <2.0 mg/dL (<2.0); WBC,Urine 94 /hpf (0-5)
[2021-12-18] MEDS ORDERED: cefTRIAXone IN SWFI 1,000 MG/10 ML SYRINGE IVP STA (18:21)
[2021-12-18 19:50] VITALS: BP 125/67; PULSE 71; RESP 15
--- NOTE | 2021-12-18 23:15 | ED ---
Medical Decision Making - Lab Data Result diagrams: 12/18/21 16:42 12/18/21 16:42 Lab Results 12/18/21 12/18/21 12/18/21 Range/Units 16:42 16:42 16:42 WBC 9.6 (3.8-10.6) k/uL RBC 4.03 (3.80-5.40) m/uL Hgb 11.0 L (11.4-16.0) gm/dL Hct 35.1 (34.0-46.0) % MCV 87.3 (80.0-100.0) fL MCH 27.2 (25.0-35.0) pg MCHC 31.2 (31.0-37.0) g/dL RDW 16.2 H (11.5-15.5) % Plt Count 211 (150-450) k/uL MPV 8.7 Neutrophils % 90 % Lymphocytes % 7 % Monocytes % 3 % Eosinophils % 0 % Basophils % 0 % Neutrophils # 8.6 H (1.3-7.7) k/uL Lymphocytes # 0.6 L (1.0-4.8) k/uL Monocytes # 0.3 (0-1.0) k/uL Eosinophils # 0.0 (0-0.7) k/uL Basophils # 0.0 (0-0.2) k/uL Hypochromasia Marked Anisocytosis Slight Sodium 135 L (137-145) mmol/L Potassium 4.5 (3.5-5.1) mmol/L Chloride 100 (98-107) mmol/L Carbon Dioxide 21 L (22-30) mmol/L Anion Gap 14 mmol/L BUN 23 H (7-17) mg/dL Creatinine 1.25 H (0.52-1.04) mg/dL Est GFR (CKD-EPI)AfAm 50 (>60 ml/min/1.73 sqM) Est GFR (CKD-EPI)NonAf 44 (>60 ml/min/1.73 sqM) Glucose 143 H (74-99) mg/dL Calcium 8.4 (8.4-10.2) mg/dL Urine Color Urine Appearance (Clear) Urine pH (5.0-8.0) Ur Specific [place] (1.001-1.035) Urine Protein (Negative) Urine Glucose (UA) (Negative) Urine Ketones (Negative) Urine Blood (Negative) Urine Nitrite (Negative) Urine Bilirubin (Negative) Urine Urobilinogen (<2.0) mg/dL Ur Leukocyte Esterase (Negative) Urine RBC (0-5) /hpf Urine WBC (0-5) /hpf Urine WBC Clumps (None) /hpf Urine Bacteria (None) /hpf Urine Mucus (None) /hpf Coronavirus (PCR) Not Detected (Not Detectd) 12/18/21 Range/Units 17:40 WBC (3.8-10.6) k/uL RBC (3.80-5.40) m/uL Hgb (11.4-16.0) gm/dL Hct (34.0-46.0) % MCV (80.0-100.0) fL MCH (25.0-35.0) pg MCHC (31.0-37.0) g/dL RDW (11.5-15.5) % Plt Count (150-450) k/uL MPV Neutrophils % % Lymphocytes % % Monocytes % % Eosinophils % % Basophils % % Neutrophils # (1.3-7.7) k/uL Lymphocytes # (1.0-4.8) k/uL Monocytes # (0-1.0) k/uL Eosinophils # (0-0.7) k/uL Basophils # (0-0.2) k/uL Hypochromasia Anisocytosis Sodium (137-145) mmol/L Potassium (3.5-5.1) mmol/L Chloride (98-107) mmol/L Carbon Dioxide (22-30) mmol/L Anion Gap mmol/L BUN (7-17) mg/dL Creatinine (0.52-1.04) mg/dL Est GFR (CKD-EPI)AfAm (>60 ml/min/1.73 sqM) Est GFR (CKD-EPI)NonAf (>60 ml/min/1.73 sqM) Glucose (74-99) mg/dL Calcium (8.4-10.2) mg/dL Urine Color Light Yellow Urine Appearance Cloudy H (Clear) Urine pH 5.5 (5.0-8.0) Ur Specific [place] 1.012 (1.001-1.035) Urine Protein 1+ H (Negative) Urine Glucose (UA) Negative (Negative) Urine Ketones Negative (Negative) Urine Blood Small H (Negative) Urine Nitrite Positive H (Negative) Urine Bilirubin Negative (Negative) Urine Urobilinogen <2.0 (<2.0) mg/dL Ur Leukocyte Esterase Large H (Negative) Urine RBC 6 H (0-5) /hpf Urine WBC 94 H (0-5) /hpf Urine WBC Clumps Many H (None) /hpf Urine Bacteria Many H (None) /hpf Urine Mucus Rare H (None) /hpf Coronavirus (PCR) (Not Detectd) Disposition Clinical Impression: Right radial fracture, UTI (urinary tract infection) Disposition: HOME SELF-CARE Condition: Fair Instructions (If sedation given, give patient instructions): Wrist Fracture in Adults (ED) Prescriptions: Cephalexin [Keflex] 500 mg PO Q12HR 7 Days #14 cap Is patient prescribed a controlled substance at d/c from ED?: No Referrals: Alejandro Navas MD [Primary Care Provider] - 1-2 days Candido Syed DO [Doctor of Osteopathic Medicine] - 1-2 days Procedures - Orthopedic Splinting/Casting Injury #1 Side: right Upper Extremity Injury Location: short arm, wrist Upper Extremity Immobilizer: thumb spica Additional Comments: neurovascularly intact following splinting.
== END 2021-12-18 20:02 | disposition home or self-care (01) ==
LOC: EC 15:54
DX: S52.181A Other fracture of upper end of right radius, initial encounter for closed fracture (principal); N39.0 Urinary tract infection, site not specified; E11.9 Type 2 diabetes mellitus without complications; I10 Essential (primary) hypertension; Z88.2 Allergy status to sulfonamides; Z88.0 Allergy status to penicillin; Z88.5 Allergy status to narcotic agent; Z79.899 Other long term (current) drug therapy; Z20.822 Contact with and (suspected) exposure to COVID-19; W18.39XA Other fall on same level, initial encounter; Y93.01 Activity, walking, marching and hiking; Y92.009 Unspecified place in unspecified non-institutional (private) residence as the place of occurrence of the external cause
CPT/HCPCS: 36415; 93005; 80048; 85025; 81001; 87086; 87077; 87186; 87635; 72170; 73110; 73130; 71045; 99285; 96374; 96361; J0696

== ENCOUNTER 2021-12-22 13:31 | Emergency (ER) | payer MEDICARE ==
[2021-12-22 13:51] VITALS: RESP 16
[2021-12-22 14:02] VITALS: TEMP 97.8
[2021-12-22] MEDS ORDERED: HYDROcodone/APAP 5-325MG 1 EACH TAB PO STA (14:05)
--- NOTE | 2021-12-22 14:07 | ED ---
Upper Extremity HPI - General Chief Complaint: Extremity Injury, Upper Stated Complaint: Revisit Here 12/18 Time Seen by Provider: 12/22/21 13:53 Source: patient, RN notes reviewed Mode of arrival: wheelchair Limitations: no limitations - History of Present Illness Initial Comments: 71-year-old female presents emergency department to complaint of right wrist pain. Patient seen here 2 days ago for complaints of right wrist pain. Patient states splint too tight, causing pain. Patient states she did room after which seemed to help some. Patient denies any paresthesias. Patient denies any new injuries. Patient is scheduled with orthopedics follow-up in 2 days. - Related Data Home Medications Medication Instructions Recorded Confirmed Oxybutynin Chloride 5 mg PO BID 05/15/18 12/17/20 buPROPion XL [Wellbutrin XL] 150 mg PO DAILY 05/15/18 12/17/20 Gabapentin [Neurontin] 100 mg PO BID 02/28/20 12/17/20 HYDROcodone/APAP 7.5-325MG [Haskins 1 tab PO Q6H PRN 02/28/20 12/17/20 7.5-325] Metoprolol Tartrate [Lopressor] 50 mg PO BID 02/28/20 12/17/20 Omeprazole 20 mg PO DAILY 07/01/20 12/17/20 Cefuroxime [Ceftin] 250 mg PO BID 12/17/20 12/17/20 Previous Rx's Medication Instructions Recorded Ciprofloxacin HCl [Cipro] 500 mg PO Q12H 7 Days #14 tab 12/17/20 Cephalexin [Keflex] 500 mg PO Q12HR 7 Days #14 cap 12/18/21 HYDROcodone/APAP 5-325MG [Haskins 5] 1 each PO Q6HR PRN #12 tab 12/22/21 Allergies Allergy/AdvReac Type Severity Reaction Status Date / Time meperidine [From Demerol] AdvReac Nausea & Verified 12/22/21 13:51 Vomiting Penicillins AdvReac "FALLS Verified 12/22/21 13:51 ALOT" Sulfa (Sulfonamide AdvReac Nausea & Verified 12/22/21 13:51 Antibiotics) Vomiting Review of Systems ROS Statement: Those systems with pertinent positive or pertinent negative responses have been documented in the HPI. ROS Other: All systems not noted in ROS Statement are negative. 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 COLONOSCOPY. LAP BAND THEN HAD BARIATRIC SURGERY;. bladder surgery may have been for a benign cyst but is not sure. 16 LBS ABD. TISSUE REMOVED Past Anesthesia/Blood Transfusion Reactions: No Reported Reaction Past Psychological History: Anxiety, Depression Smoking Status: Never smoker Past Alcohol Use History: None Reported Past Drug Use History: None Reported - Past Family History Mother Family Medical History: Diabetes Mellitus Additional Family Medical History / Comment(s): At [facility] with UTI. Father Family Medical History: CVA/TIA, Diabetes Mellitus Sister(s) Family Medical History: Deep Vein Thrombosis (DVT) General Exam Limitations: no limitations General appearance: alert, in no apparent distress Head exam: Present: atraumatic, normocephalic, normal inspection Respiratory exam: Present: normal lung sounds bilaterally. Absent: respiratory distress, wheezes, rales, rhonchi, stridor Cardiovascular Exam: Present: regular rate, normal rhythm, normal heart sounds. Absent: systolic murmur, diastolic murmur, rubs, gallop, clicks Extremities exam: Present: other (Right wrist splint was removed, cap refill less than 2 seconds, there is no discoloration of the digits no paresthesias normal sensation radial pulses equal.) Course Vital Signs 12/22/21 12/22/21 12/22/21 13:48 13:59 14:16 Temperature 98.4 F 97.8 F 97.8 F Pulse Rate 78 78 70 Respiratory 16 16 16 Rate Blood Pressure 97/48 132/78 130/70 O2 Sat by Pulse 94 L 99 100 Oximetry Procedures - Orthopedic Splinting/Casting Injury #1 Side: right Upper Extremity Injury Location: short arm, wrist Upper Extremity Immobilizer: volar splint, synthetic pre-padded splint Medical Decision Making - Medical Decision Making Patient splint was removed patient has no evidence of compartment syndrome. She is neurovascularly intact new splint was loosely applied and she has follow-up with orthopedics. Disposition Clinical Impression: Fracture of right distal radius Disposition: HOME SELF-CARE Condition: Stable Instructions (If sedation given, give patient instructions): Arm Fracture in Adults (ED) Additional Instructions: Please return to the Emergency Department if symptoms worsen or any other concerns. Prescriptions: HYDROcodone/APAP 5-325MG [Haskins 5] 1 each PO Q6HR PRN #12 tab PRN Reason: Pain Is patient prescribed a controlled substance at d/c from ED?: Yes When asked, does pt state using other controlled substances?: No If prescribed controlled substance>3 days was MAPS reviewed?: Prescribed <3 Days If opioid is for acute pain is fill amount 7 days or less?: Yes If Rx opioid, was Start Talking consent form obtained?: Yes Referrals: Alejandro Navas MD [Primary Care Provider] - 1-2 days Time of Disposition: 14:07
[2021-12-22 14:18] VITALS: BP 130/70; PULSE 70
== END 2021-12-22 14:16 | disposition home or self-care (01) ==
LOC: EC 13:31
DX: Z88.8 Allergy status to other drugs, medicaments and biological substances (principal); Z88.2 Allergy status to sulfonamides; Z88.0 Allergy status to penicillin; E11.9 Type 2 diabetes mellitus without complications; I10 Essential (primary) hypertension; S52.501A Unspecified fracture of the lower end of right radius, initial encounter for closed fracture
CPT/HCPCS: 29125; 99283

== ENCOUNTER 2022-06-29 13:21 | Inpatient (IN) | payer MEDICARE ==
[2022-06-29] MEDS ORDERED: ONDANSETRON 4 MG/2 ML VIAL IVP STA (13:54)
[2022-06-29] MEDS ORDERED: SODIUM CHLORIDE 0.9% 1,000 ML IV STA (13:54)
--- NOTE | 2022-06-29 13:54 | ED ---
Abdominal Pain HPI <Dar Ovalle - Last Filed: 06/29/22 19:59> - General Source: patient, family Mode of arrival: wheelchair Limitations: no limitations <Jemima Lucio - Last Filed: 07/01/22 14:30> - General Chief Complaint: Abdominal Pain Stated Complaint: R side pain Time Seen by Provider: 06/29/22 13:32 - History of Present Illness Initial Comments: 71-year-old female past medical history of diabetes, hypertension who presents to the emergency department with complaint of right lower quadrant abdominal pain. States that it starts this morning at 2 AM and radiates around to her back. Denies history of similar. Does admit to some dysuria. As a large history of urinary tract infections. Denies diarrhea, constipation, black or bloody stools. Has had previous abdominal surgery for weight loss. She denies chest pain or shortness of breath. No numbness tickling or weakness in her chi mneys. No allevating, precipitating or modifying factors (Jemima Lucio) - Related Data Home Medications Medication Instructions Recorded Confirmed Oxybutynin Chloride 5 mg PO BID 05/15/18 06/29/22 buPROPion XL [Wellbutrin XL] 150 mg PO DAILY 05/15/18 06/29/22 Metoprolol Tartrate [Lopressor] 50 mg PO BID 02/28/20 06/29/22 Albuterol Sulfate [Albuterol 2 puff PO RT-QID PRN 06/29/22 06/29/22 Sulfate Hfa] Alendronate Sodium [Fosamax] 70 mg PO WE 06/29/22 06/29/22 Benzonatate [Tessalon Perles] 100 mg PO TID PRN 06/29/22 06/29/22 Allergies Allergy/AdvReac Type Severity Reaction Status Date / Time meperidine [From Demerol] AdvReac Nausea & Verified 06/29/22 13:30 Vomiting Penicillins AdvReac "FALLS Verified 06/29/22 15:14 ALOT"/Weakness Sulfa (Sulfonamide AdvReac Nausea & Verified 06/29/22 15:14 Antibiotics) Vomiting Review of Systems ROS Other: All systems not noted in ROS Statement are negative. <Dar Ovalle - Last Filed: 06/29/22 19:59> ROS Other: All systems not noted in ROS Statement are negative. <Jemima Lucio - Last Filed: 07/01/22 14:30> ROS Statement: Those systems with pertinent positive or pertinent negative responses have been documented in the HPI. 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 COLONOSCOPY. LAP BAND THEN HAD BARIATRIC SURGERY;. bladder surgery may have been for a benign cyst but is not sure. 16 LBS ABD. TISSUE REMOVED Past Anesthesia/Blood Transfusion Reactions: No Reported Reaction Past Psychological History: Anxiety, Depression Smoking Status: Never smoker Past Alcohol Use History: None Reported Past Drug Use History: None Reported - Past Family History Mother Family Medical History: Diabetes Mellitus Additional Family Medical History / Comment(s): At [facility] with UTI. Father Family Medical History: CVA/TIA, Diabetes Mellitus Sister(s) Family Medical History: Deep Vein Thrombosis (DVT) <Jemima Lucio - Last Filed: 07/01/22 14:30> General Exam Limitations: no limitations General appearance: alert, in no apparent distress Head exam: Present: atraumatic, normocephalic, normal inspection Eye exam: Present: normal appearance, PERRL, EOMI. Absent: scleral icterus, conjunctival injection, periorbital swelling ENT exam: Present: normal exam, mucous membranes moist Neck exam: Present: normal inspection. Absent: tenderness, meningismus, lymphadenopathy Respiratory exam: Present: normal lung sounds bilaterally. Absent: respiratory distress, wheezes, rales, rhonchi, stridor Cardiovascular Exam: Present: regular rate, normal rhythm, normal heart sounds. Absent: systolic murmur, diastolic murmur, rubs, gallop, clicks GI/Abdominal exam: Present: soft, tenderness (Right lower quadrant pain), normal bowel sounds. Absent: distended, guarding, rebound, rigid Extremities exam: Present: normal inspection, full ROM, normal capillary refill. Absent: tenderness, pedal edema, joint swelling, calf tenderness Back exam: Present: normal inspection Neurological exam: Present: alert, oriented X3, CN II-XII intact Psychiatric exam: Present: normal affect, normal mood Skin exam: Present: warm, dry, intact, normal color. Absent: rash <Jemima Lucio A - Last Filed: 07/01/22 14:30> Course Vital Signs 06/29/22 06/29/22 06/29/22 13:25 13:50 13:55 Temperature 97.4 F L Pulse Rate 71 73 Respiratory 18 18 Rate Blood Pressure 80/52 95/49 O2 Sat by Pulse 92 L 89 L 93 L Oximetry 06/29/22 06/29/22 06/29/22 14:00 15:00 15:44 Temperature 97.5 F L Pulse Rate 73 83 Respiratory 20 17 Rate Blood Pressure 95/49 104/54 109/50 O2 Sat by Pulse 93 L 97 97 Oximetry 06/29/22 06/29/22 06/29/22 16:00 17:00 17:43 Temperature Pulse Rate 85 89 Respiratory 16 Rate Blood Pressure 88/73 104/56 119/58 O2 Sat by Pulse 98 Oximetry 06/29/22 06/29/22 06/29/22 18:00 18:51 19:00 Temperature 100.9 F H Pulse Rate 117 H 112 H Respiratory 24 Rate Blood Pressure 114/62 118/43 118/43 O2 Sat by Pulse 100 95 100 Oximetry 06/29/22 06/29/22 06/29/22 20:00 20:30 20:44 Temperature 102.6 F H Pulse Rate 113 H 108 H 112 H Respiratory 18 Rate Blood Pressure 82/47 79/45 81/45 O2 Sat by Pulse 100 100 100 Oximetry 06/29/22 06/29/22 06/29/22 21:10 21:20 21:30 Temperature Pulse Rate 116 H 113 H 115 H Respiratory Rate Blood Pressure 107/54 110/40 110/40 O2 Sat by Pulse 100 100 93 L Oximetry 06/29/22 06/29/22 06/29/22 21:52 22:00 22:58 Temperature 98.5 F Pulse Rate 110 H 113 H 101 H Respiratory 16 18 Rate Blood Pressure 94/65 94/65 84/35 O2 Sat by Pulse 100 98 99 Oximetry 06/29/22 06/29/22 06/29/22 23:00 23:10 23:30 Temperature Pulse Rate 102 H 101 H 100 Respiratory Rate Blood Pressure 84/35 72/39 59/23 O2 Sat by Pulse 97 Oximetry 06/30/22 06/30/22 06/30/22 00:00 01:03 01:22 Temperature Pulse Rate 95 98 96 Respiratory 20 16 14 Rate Blood Pressure 72/39 80/42 70/40 O2 Sat by Pulse 95 95 95 Oximetry 06/30/22 06/30/22 06/30/22 02:24 03:35 05:11 Temperature Pulse Rate 93 92 Respiratory 16 16 Rate Blood Pressure 74/43 119/54 104/55 O2 Sat by Pulse 99 95 Oximetry 06/30/22 06/30/22 06/30/22 06:27 07:32 08:17 Temperature 98.2 F 97.8 F Pulse Rate 104 H 92 96 Respiratory 18 18 18 Rate Blood Pressure 118/68 115/47 112/49 O2 Sat by Pulse 97 97 97 Oximetry 06/30/22 06/30/22 06/30/22 09:30 10:30 11:32 Temperature Pulse Rate 91 91 102 H Respiratory 26 H 19 18 Rate Blood Pressure 108/49 111/58 118/59 O2 Sat by Pulse 97 97 98 Oximetry 06/30/22 06/30/22 06/30/22 12:46 13:10 13:41 Temperature Pulse Rate 94 96 85 Respiratory 18 20 18 Rate Blood Pressure 127/61 128/68 104/62 O2 Sat by Pulse 99 97 99 Oximetry 06/30/22 06/30/22 06/30/22 14:00 15:00 16:04 Temperature Pulse Rate 87 105 H 102 H Respiratory 22 26 H 18 Rate Blood Pressure 121/81 129/57 111/64 O2 Sat by Pulse 100 98 97 Oximetry 06/30/22 06/30/22 06/30/22 17:19 17:51 18:53 Temperature Pulse Rate 89 95 112 H Respiratory 18 16 18 Rate Blood Pressure 97/52 111/45 140/51 O2 Sat by Pulse 99 98 98 Oximetry 06/30/22 06/30/22 06/30/22 19:59 20:01 20:08 Temperature Pulse Rate 81 78 80 Respiratory 20 20 Rate Blood Pressure 72/40 119/61 135/56 O2 Sat by Pulse 97 98 98 Oximetry 06/30/22 06/30/22 06/30/22 20:19 22:15 22:18 Temperature 98.1 F Pulse Rate 84 110 H 101 H Respiratory 22 Rate Blood Pressure 145/56 130/67 136/60 O2 Sat by Pulse 97 96 Oximetry 06/30/22 06/30/22 06/30/22 22:30 22:45 23:00 Temperature Pulse Rate 98 95 Respiratory 20 22 22 Rate Blood Pressure 95/47 126/69 131/53 O2 Sat by Pulse 96 97 97 Oximetry 06/30/22 06/30/22 06/30/22 23:15 23:30 23:45 Temperature Pulse Rate 98 94 Respiratory 12 22 23 Rate Blood Pressure 122/37 114/64 115/52 O2 Sat by Pulse 96 97 97 Oximetry 07/01/22 07/01/22 07/01/22 00:00 00:15 00:24 Temperature Pulse Rate 96 95 Respiratory 20 20 Rate Blood Pressure 113/41 104/44 105/42 O2 Sat by Pulse 96 96 96 Oximetry 07/01/22 07/01/22 07/01/22 00:26 00:30 00:45 Temperature 98.2 F Pulse Rate 100 98 Respiratory 20 21 Rate Blood Pressure 101/45 109/45 O2 Sat by Pulse 96 98 Oximetry 07/01/22 07/01/22 07/01/22 00:56 01:05 01:17 Temperature Pulse Rate 93 97 90 Respiratory 20 Rate Blood Pressure 101/53 100/52 101/46 O2 Sat by Pulse 97 Oximetry 07/01/22 07/01/22 07/01/22 02:06 02:26 02:38 Temperature Pulse Rate 100 93 Respiratory 20 Rate Blood Pressure 115/47 101/59 110/50 O2 Sat by Pulse Oximetry 07/01/22 07/01/22 07/01/22 03:03 03:25 03:36 Temperature Pulse Rate 98 104 H 98 Respiratory Rate Blood Pressure 122/49 120/48 103/48 O2 Sat by Pulse Oximetry 07/01/22 07/01/22 07/01/22 03:48 04:31 04:41 Temperature Pulse Rate 102 H 106 H 102 H Respiratory Rate Blood Pressure 107/44 119/50 117/50 O2 Sat by Pulse 97 Oximetry 07/01/22 07/01/22 07/01/22 05:28 06:18 06:20 Temperature 98.2 F Pulse Rate 101 H 114 H 96 Respiratory 20 20 Rate Blood Pressure 106/55 113/46 O2 Sat by Pulse 99 97 Oximetry 07/01/22 07/01/22 07/01/22 06:46 07:00 07:30 Temperature Pulse Rate 101 H 103 H 113 H Respiratory 18 12 Rate Blood Pressure 101/41 107/60 102/78 O2 Sat by Pulse 96 96 Oximetry 07/01/22 07/01/22 07/01/22 08:11 08:20 08:30 Temperature Pulse Rate 110 H 96 87 Respiratory 17 Rate Blood Pressure 109/46 O2 Sat by Pulse 96 97 Oximetry 07/01/22 07/01/22 07/01/22 09:00 09:30 10:00 Temperature Pulse Rate 98 93 93 Respiratory 18 19 19 Rate Blood Pressure 128/50 113/31 116/43 O2 Sat by Pulse 98 99 99 Oximetry 07/01/22 07/01/22 07/01/22 10:30 11:00 11:30 Temperature Pulse Rate 101 H 109 H 112 H Respiratory 18 20 21 Rate Blood Pressure 111/50 120/53 121/54 O2 Sat by Pulse 99 97 97 Oximetry 07/01/22 07/01/22 07/01/22 12:00 12:30 13:00 Temperature Pulse Rate 108 H 96 99 Respiratory 20 17 17 Rate Blood Pressure 128/50 108/53 107/43 O2 Sat by Pulse 98 97 97 Oximetry Procedures - Sepsis Sepsis Focused Exam #1 Sepsis Focused Exam Complete: Yes Vital Signs & RN Notes Reviewed: Yes Capillary Refill: < 2 Seconds: Fingers Peripheral Pulses: Normal: Radial (R) Skin Color: Normal for Patient Respiratory Exam: normal lung sounds Cardiovascular Exam: tachycardia, normal heart sounds <Dar Ovalle - Last Filed: 06/29/22 19:59> Medical Decision Making - Lab Data Result diagrams: 06/29/22 13:59 06/29/22 13:59 <Dar Ovalle - Last Filed: 06/29/22 19:59> - Lab Data Result diagrams: 07/01/22 06:18 07/01/22 06:18 <Jemima Lucio - Last Filed: 07/01/22 14:30> - Medical Decision Making Was pt. sent in by a medical professional or institution (, PA, POWER ENGINEER, urgent care, hospital, or halfway...) When possible be specific @ -No Did you speak to anyone other than the patient for history (EMS, parent, family, police, friend...)? What history was obtained from this source @ -No Did you review nursing and triage notes (agree or disagree)? Why? @ - I reviewed and agree with nursing and triage notes Were old charts reviewed (outside hosp., previous admission, EMS record, old EKG, old radiological studies, urgent care reports/EKG's, halfway records)? Report findings @ -No old charts were reviewed Differential Diagnosis (chest pain, altered mental status, abdominal pain women, abdominal pain men, vaginal bleeding, weakness, fever, dyspnea, syncope, headache, dizziness, GI bleed, back pain, seizure, CVA, palpatations, mental health, musculoskeletal)? @ -uti, nephrolithiasis, diveticulitis, bowel obstruction, constipation EKG interpreted by me (3pts min.). @ -yes X-rays interpreted by me (1pt min.). @ -None done CT interpreted by me (1pt min.). @ -yes U/S interpreted by me (1pt. min.). @ -None done What testing was considered but not performed or refused? (CT, X-rays, U/S, labs)? Why? @ -None What meds were considered but not given or refused? Why? @ -None Did you discuss the management of the patient with other professionals (professionals i.e. , PA, POWER ENGINEER, lab, RT, psych nurse, social media campaign manager, signal intelligence/electronic warfare, teacher, chief growth officer, vocational case manager)? Give summary @ -Dr. Ovalle who will finish up the management of the patient Was smoking cessation discussed for >3mins.? @ -No Was critical care preformed (if so, how long)? @ -No Were there social determinants of health that impacted care today? How? (Homelessness, low income, unemployed, alcoholism, drug addiction, transportat ion, low edu. Level, literacy, decrease access to med. care, fpc, rehab)? @ -No Was there de-escalation of care discussed even if they declined (Discuss DNR or withdrawal of care, Hospice)? DNR status @ -No What co-morbidities impacted this encounter? (DM, HTN, Smoking, COPD, CAD, Cancer, CVA, ARF, Chemo, Hep., AIDS, mental health diagnosis, sleep apnea, morbid obesity)? @ -recurrent utis Was patient admitted / discharged? Hospital course, mention meds given and route, prescriptions, significant lab abnormalities, going to OR and other pertinent info. @ -Arrival patient is placed into room 20. Thorough history and physical exam was performed. Laboratory studies are conducted. Potassium 6.1 which is mildly hemolyzed. Patient only has 32 mL of urine or bladder. Because of the reported abdominal pain she is sent for CT. Awaiting CT results. Patient will be signed out to Dr. Mcfadden at this time Undiagnosed new problem with uncertain prognosis? @ -yes Drug Therapy requiring intensive monitoring for toxicity (Heparin, Nitro, Insulin, Cardizem)? @ -No Were any procedures done? @ -No Diagnosis/symptom? @ -acute llq pain, acute uti Acute, or Chronic, or Acute on Chronic? @ -acute Uncomplicated (without systemic symptoms) or Complicated (systemic symptoms)? @ -complicated Side effects of treatment? @ -No Exacerbation, Progression, or Severe Exacerbation? @ -No Poses a threat to life or bodily function? How? (Chest pain, [place], [place], pneumonia, PE, COPD, DKA, ARF, appy, cholecystitis, CVA, Diverticulitis, Homicidal, Suicidal, threat to staff... and all critical care pts) @ -yes (Jemima Lucio) - Lab Data Lab Results 06/29/22 06/29/22 06/29/22 Range/Units 13:54 13:59 13:59 WBC 12.3 H (3.8-10.6) k/uL RBC 4.06 (3.80-5.40) m/uL Hgb 11.1 L (11.4-16.0) gm/dL Hct 36.8 (34.0-46.0) % MCV 90.6 (80.0-100.0) fL MCH 27.4 (25.0-35.0) pg MCHC 30.2 L (31.0-37.0) g/dL RDW 16.9 H (11.5-15.5) % Plt Count 339 (150-450) k/uL MPV 8.2 Neutrophils % 87 % Lymphocytes % 8 % Monocytes % 3 % Eosinophils % 1 % Basophils % 0 % Neutrophils # 10.7 H (1.3-7.7) k/uL Lymphocytes # 1.0 (1.0-4.8) k/uL Monocytes # 0.3 (0-1.0) k/uL Eosinophils # 0.1 (0-0.7) k/uL Basophils # 0.0 (0-0.2) k/uL Hypochromasia Moderate Anisocytosis Slight PT 10.2 (9.0-12.0) sec INR 1.0 (<1.2) APTT 22.0 (22.0-30.0) sec Sodium (137-145) mmol/L Potassium (3.5-5.1) mmol/L Chloride (98-107) mmol/L Carbon Dioxide (22-30) mmol/L Anion Gap mmol/L BUN (7-17) mg/dL Creatinine (0.52-1.04) mg/dL Est GFR (CKD-EPI)AfAm (>60 ml/min/1.73 sqM) Est GFR (CKD-EPI)NonAf (>60 ml/min/1.73 sqM) Glucose (74-99) mg/dL Plasma Lactic Acid Christ (0.7-2.0) mmol/L Calcium (8.4-10.2) mg/dL Total Bilirubin (0.2-1.3) mg/dL AST (14-36) U/L ALT (4-34) U/L Alkaline Phosphatase (38-126) U/L Troponin I (0.000-0.034) ng/mL NT-Pro-B Natriuret Pep pg/mL Total Protein (6.3-8.2) g/dL Albumin (3.5-5.0) g/dL Lipase (23-300) U/L Urine Color Yellow Urine Appearance Turbid H (Clear) Urine pH 5.5 (5.0-8.0) Ur Specific [place] 1.024 (1.001-1.035) Urine Protein Trace H (Negative) Urine Glucose (UA) Negative (Negative) Urine Ketones Negative (Negative) Urine Blood Moderate H (Negative) Urine Nitrite Positive H (Negative) Urine Bilirubin Negative (Negative) Urine Urobilinogen <2.0 (<2.0) mg/dL Ur Leukocyte Esterase Large H (Negative) Urine RBC 25 H (0-5) /hpf Urine WBC >182 H (0-5) /hpf Urine WBC Clumps Many H (None) /hpf Urine Bacteria Occasional H (None) /hpf Urine Mucus Many H (None) /hpf 06/29/22 06/29/22 06/29/22 Range/Units 13:59 13:59 13:59 WBC (3.8-10.6) k/uL RBC (3.80-5.40) m/uL Hgb (11.4-16.0) gm/dL Hct (34.0-46.0) % MCV (80.0-100.0) fL MCH (25.0-35.0) pg MCHC (31.0-37.0) g/dL RDW (11.5-15.5) % Plt Count (150-450) k/uL MPV Neutrophils % % Lymphocytes % % Monocytes % % Eosinophils % % Basophils % % Neutrophils # (1.3-7.7) k/uL Lymphocytes # (1.0-4.8) k/uL Monocytes # (0-1.0) k/uL Eosinophils # (0-0.7) k/uL Basophils # (0-0.2) k/uL Hypochromasia Anisocytosis PT (9.0-12.0) sec INR (<1.2) APTT (22.0-30.0) sec Sodium 136 L (137-145) mmol/L Potassium 6.1 H* (3.5-5.1) mmol/L Chloride 112 H (98-107) mmol/L Carbon Dioxide 17 L (22-30) mmol/L Anion Gap 7 mmol/L BUN 20 H (7-17) mg/dL Creatinine 1.05 H (0.52-1.04) mg/dL Est GFR (CKD-EPI)AfAm 62 (>60 ml/min/1.73 sqM) Est GFR (CKD-EPI)NonAf 54 (>60 ml/min/1.73 sqM) Glucose 144 H (74-99) mg/dL Plasma Lactic Acid Christ 1.6 (0.7-2.0) mmol/L Calcium 7.8 L (8.4-10.2) mg/dL Total Bilirubin 0.5 (0.2-1.3) mg/dL AST 25 (14-36) U/L ALT 15 (4-34) U/L Alkaline Phosphatase 153 H (38-126) U/L Troponin I <0.012 (0.000-0.034) ng/mL NT-Pro-B Natriuret Pep pg/mL Total Protein 5.5 L (6.3-8.2) g/dL Albumin 2.9 L (3.5-5.0) g/dL Lipase 71 (23-300) U/L Urine Color Urine Appearance (Clear) Urine pH (5.0-8.0) Ur Specific [place] (1.001-1.035) Urine Protein (Negative) Urine Glucose (UA) (Negative) Urine Ketones (Negative) Urine Blood (Negative) Urine Nitrite (Negative) Urine Bilirubin (Negative) Urine Urobilinogen (<2.0) mg/dL Ur Leukocyte Esterase (Negative) Urine RBC (0-5) /hpf Urine WBC (0-5) /hpf Urine WBC Clumps (None) /hpf Urine Bacteria (None) /hpf Urine Mucus (None) /hpf 06/29/22 Range/Units 13:59 WBC (3.8-10.6) k/uL RBC (3.80-5.40) m/uL Hgb (11.4-16.0) gm/dL Hct (34.0-46.0) % MCV (80.0-100.0) fL MCH (25.0-35.0) pg MCHC (31.0-37.0) g/dL RDW (11.5-15.5) % Plt Count (150-450) k/uL MPV Neutrophils % % Lymphocytes % % Monocytes % % Eosinophils % % Basophils % % Neutrophils # (1.3-7.7) k/uL Lymphocytes # (1.0-4.8) k/uL Monocytes # (0-1.0) k/uL Eosinophils # (0-0.7) k/uL Basophils # (0-0.2) k/uL Hypochromasia Anisocytosis PT (9.0-12.0) sec INR (<1.2) APTT (22.0-30.0) sec Sodium (137-145) mmol/L Potassium (3.5-5.1) mmol/L Chloride (98-107) mmol/L Carbon Dioxide (22-30) mmol/L Anion Gap mmol/L BUN (7-17) mg/dL Creatinine (0.52-1.04) mg/dL Est GFR (CKD-EPI)AfAm (>60 ml/min/1.73 sqM) Est GFR (CKD-EPI)NonAf (>60 ml/min/1.73 sqM) Glucose (74-99) mg/dL Plasma Lactic Acid Christ (0.7-2.0) mmol/L Calcium (8.4-10.2) mg/dL Total Bilirubin (0.2-1.3) mg/dL AST (14-36) U/L ALT (4-34) U/L Alkaline Phosphatase (38-126) U/L Troponin I (0.000-0.034) ng/mL NT-Pro-B Natriuret Pep 625 pg/mL Total Protein (6.3-8.2) g/dL Albumin (3.5-5.0) g/dL Lipase (23-300) U/L Urine Color Urine Appearance (Clear) Urine pH (5.0-8.0) Ur Specific [place] (1.001-1.035) Urine Protein (Negative) Urine Glucose (UA) (Negative) Urine Ketones (Negative) Urine Blood (Negative) Urine Nitrite (Negative) Urine Bilirubin (Negative) Urine Urobilinogen (<2.0) mg/dL Ur Leukocyte Esterase (Negative) Urine RBC (0-5) /hpf Urine WBC (0-5) /hpf Urine WBC Clumps (None) /hpf Urine Bacteria (None) /hpf Urine Mucus (None) /hpf - EKG Data EKG Comments: EKG uncertain sinus rhythm with a rate of 71. ND interval 122. QRS 86. QTC of 426. No acute ST segment elevations or depressions (Jemima Lucio) Disposition <Dar Ovalle - Last Filed: 06/29/22 19:59> Is patient prescribed a controlled substance at d/c from ED?: No <Jemima Lucio - Last Filed: 07/01/22 14:30> Clinical Impression: UTI (urinary tract infection) Disposition: ADMITTED IP TO THIS HOSP Condition: Serious
[2022-06-29 14:13] LABS: Anisocytosis Slight; Basophils % (A) 0 %; Eosinophils # (A) 0.1 k/uL (0-0.7); Eosinophils % (A) 1 %; HCT 36.8 % (34.0-46.0); HGB 11.1 gm/dL (11.4-16.0); Hypochromasia Moderate; Lymphocytes % (A) 8 %; MCH 27.4 pg (25.0-35.0); MCHC 30.2 g/dL (31.0-37.0); MCV 90.6 fL (80.0-100.0); Mean Platelet Volume 8.2; Monocytes # (A) 0.3 k/uL (0-1.0); Monocytes % (A) 3 %; Neutrophils # (A) 10.7 k/uL (1.3-7.7); Neutrophils % (A) 87 %; Platelet Count 339 k/uL (150-450); RBC 4.06 m/uL (3.80-5.40); RDW 16.9 % (11.5-15.5); WBC 12.3 k/uL (3.8-10.6)
[2022-06-29] MEDS: fentaNYL (PF) 50 MCG/ML 2 ML AMP IVP PRN (14:19)
[2022-06-29 14:30] LABS: Prothrombin Time 10.2 sec (9.0-12.0)
[2022-06-29 14:34] LABS: Albumin 2.9 g/dL (3.5-5.0); Calcium 7.8 mg/dL (8.4-10.2); Total Bilirubin 0.5 mg/dL (0.2-1.3); Total Protein 5.5 g/dL (6.3-8.2)
[2022-06-29 14:40] LABS: Potassium 6.1 mmol/L (3.5-5.1)
[2022-06-29] MEDS ORDERED: INSULIN REGULAR 100 UNIT/ML VIAL (IV) IV ONE (15:22)
[2022-06-29] MEDS ORDERED: DEXTROSE 50% SYRINGE 50 ML IVP STA (15:23)
--- NOTE | 2022-06-29 15:47 | CT ---
EXAMINATION TYPE: CT abdomen pelvis w con DATE OF EXAM: 06/29/2022 COMPARISON: None INDICATION: Rt side abdomen and back pain. DLP: 1620.1 mGycm, Automated exposure control for dose reduction was used. CONTRAST: 100cc mL of Isovue 300. Study performed without Oral Contrast TECHNIQUE: Axial images were obtained from above the diaphragm to the pubic rami in the axial plane a t 5 mm thick sections. Reconstructed images are reviewed on the computer in the coronal plane. FINDINGS: Limited CT sections are obtained the lung bases. There is a small right pleural effusion. Adjacent c ompressive atelectasis is present. CT ABDOMEN: Gastric sleeve surgery is evident. Post surgery within the upper quadrant bowel is eviden t. Liver: Normal Spleen: Normal Pancreas: Normal Adrenal glands: The adrenal glands are normal. Gallbladder: Absent Kidneys: No masses are evident. No hydronephrosis is present. There are scattered renal calcificati ons bilaterally. The largest inferior pole right kidney measuring 1.5 x 0.7 cm. There is mild right h ydronephrosis. No hydroureter is evident perinephric stranding is present on the right. This can be related to decompression of the urinary collecting system. Aorta: Minimal Vascular calcification is within the aorta. Inferior vena cava: Normal. CT PELVIS: Loops of bowel within the abdomen and pelvis are normal. This study is without oral contrast limi ting bowel evaluation. Appendix: Normal as visualized. Urinary bladder: Normal. Genitourinary structures: Uterus and ovaries are not identified. Osseous structures: No suspicious lytic or sclerotic lesions. IMPRESSIONS: 1. Moderate right hydronephrosis without hydroureter. Perinephric stranding is present. 2. Small right pleural effusion
[2022-06-29 16:51] LABS: Appearance,Urine Turbid (Clear); Bacteria,Urine Occasional /hpf; Bilirubin,Urine Negative (Negative); Blood,Urine Moderate (Negative); Color,Urine Yellow; Glucose,Urine (UA) Negative (Negative); Ketones,Urine Negative (Negative); Leukocyte Esterase,Urine Large (Negative); Mucus,Urine Many /hpf; Nitrite,Urine Positive (Negative); PH, Urine 5.5 (5.0-8.0); Protein,Urine Trace (Negative); RBC,Urine 25 /hpf (0-5); Specific Gravity,Urine 1.024 (1.001-1.035); Urobilinogen,Urine <2.0 mg/dL (<2.0); WBC,Urine >182 /hpf (0-5)
[2022-06-29] MEDS ORDERED: SODIUM CHLORIDE 0.9% 1,000 ML IV SCH ×2 (19:15→23:15)
[2022-06-29] MEDS: FAMOTIDINE 20 MG/2 ML VIAL IV SCH (20:04)
[2022-06-29] MEDS ORDERED: SODIUM CHLORIDE 0.9% 500 ML 500 ML IV ONE (21:00)
[2022-06-29] MEDS: ACETAMINOPHEN TAB 325 MG TAB PO PRN (21:05)
[2022-06-29] MEDS ORDERED: VANCOMYCIN IV PER PHARMACY 1 EACH MISC MISCELLANE PRN (23:07)
[2022-06-29 23:10] LABS: Glucose,Whole Blood 122 mg/dL (70-110)
[2022-06-29] MEDS ORDERED: VANCOMYCIN 1,500 MG in SODIUM CHLORIDE 0.9% 500 ML 500 ML IVPB ONE (23:15)
[2022-06-29] MEDS: NOREPINEPHRINE 8 MG in SODIUM CHLORIDE 0.9% 250 ML IV SCH (23:54)
[2022-06-30] MEDS ORDERED: SODIUM CHLORIDE 0.9% 1,000 ML IV ONE (00:44)
[2022-06-30] MEDS: HEPARIN SODIUM,PORCINE/PF 5,000 UNIT/0.5 ML SYRINGE SQ SCH ×4 (01:22→23:57)
[2022-06-30] MEDS ORDERED: IPRATROPIUM-ALBUTEROL 3 ML NEB INHALATION PRN ×2 (02:42)
--- NOTE | 2022-06-30 02:49 | P.CNPUL ---
History of Present Illness Consult date: 06/30/22 Requesting physician: Dar Ovalle Reason for consult: other (ICU management) Chief complaint: Right flank and abdominal pain History of present illness: I'm seeing this patient in new consultation today 06/30/2022 in the emergency room for urosepsis. Patient is a 71-year-old white female with past medical history of frequent UTIs with previous ESBL producing organisms in the past, kidney stones, diabetes mellitus, hypertension, osteoarthritis. Patient was previously seen by Dr. Boyd in the past for a small right pleural effusion. Patient presented to the emergency room yesterday afternoon for right flank and abdominal pain that started earlier that morning. Patient does admit some difficulty urinating and intermittent fever and chills. She denies any hematuria, nausea or vomiting, diarrhea, constipation, black or bloody stools. Urinalysis on admission was positive for nitrates and leukocytes. Urine culture is pending. Patient was originally admitted to the general medical floor, however, she became quite hypotensive despite being given a total of 1.5 L normal saline. She currently has her norepinephrine infusing at 0.03 mics per kilogram per minute. There is normal saline infusing at 167 mL per hour. Blood pressure still marginal. CT of the abdomen and pelvis with contrast shows moderate right-sided hydronephrosis without hydroureter and perinephric strandin g. Hydronephrosis might be chronic in nature, as it has been demonstrated on previous imaging. Patient's CBC on arrival shows leukocytosis with a WBC count of 12.3, hemoglobin 11.1, hematocrit 36.8, platelets 339,000. Patient's BMP shows a sodium 136, potassium 6.1, chloride 112, serum CO2 17, BUN 20, creatinine 1.05, glucose 144. Patient's hyperkalemia was treated with insulin and dextrose. No recheck has been performed yet. Patient's lactic acid level is 1.6. Troponin negative 1. Patient is currently receiving a combination of Rocephin and vancomycin for antibiotic coverage. T-max of 102.6F. Patient's blood pressure remains marginal, and is requiring norepinephrine titrations. For this reason the patient will be admitted to the intensive care unit once bed available for closer monitoring. Review of Systems REVIEW OF SYSTEMS: CONSTITUTIONAL: Denies any recent significant weight loss or weight gain. EYES: Denies change in vision. EARS, NOSE, MOUTH, THROAT: Denies headaches, denies sore throat. CARDIOVASCULAR: Denies chest pain, palpitations or syncopal episodes. RESPIRATORY: Denies cough, congestion or hemoptysis. She does admit some shortness of breath on exertion GASTROINTESTINAL: Denies change in appetite, nausea and vomiting, or diarrhea GENITOURINARY: Denies hematuria, denies infections. MUSKULOSKELETAL: Denies pain, denies swelling. INTEGUMENTARY: Denies rash, denies eczema. NEUROLOGICAL: Denies recent memory loss, no recent seizure activity. PSYCHIATRIC: Denies anxiety, denies depression. 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 COLONOSCOPY. LAP BAND THEN HAD BARIATRIC SURGERY;. bladder surgery may have been for a benign cyst but is not sure. 16 LBS ABD. TISSUE REMOVED Past Anesthesia/Blood Transfusion Reactions: No Reported Reaction Past Psychological History: Anxiety, Depression Smoking Status: Never smoker Past Alcohol Use History: None Reported Past Drug Use History: None Reported - Past Family History Mother Family Medical History: Diabetes Mellitus Additional Family Medical History / Comment(s): At [facility] with UTI. Father Family Medical History: CVA/TIA, Diabetes Mellitus Sister(s) Family Medical History: Deep Vein Thrombosis (DVT) Medications and Allergies Home Medications Medication Instructions Recorded Confirmed Type Oxybutynin Chloride 5 mg PO BID 05/15/18 06/29/22 History buPROPion XL [Wellbutrin XL] 150 mg PO DAILY 05/15/18 06/29/22 History Metoprolol Tartrate [Lopressor] 50 mg PO BID 02/28/20 06/29/22 History Albuterol Sulfate [Albuterol 2 puff PO RT-QID PRN 06/29/22 06/29/22 History Sulfate Hfa] Alendronate Sodium [Fosamax] 70 mg PO WE 06/29/22 06/29/22 History Benzonatate [Tessalon Perles] 100 mg PO TID PRN 06/29/22 06/29/22 History Allergies Allergy/AdvReac Type Severity Reaction Status Date / Time meperidine [From Demerol] AdvReac Nausea & Verified 06/29/22 13:30 Vomiting Penicillins AdvReac "FALLS Verified 06/29/22 15:14 ALOT"/Weakness Sulfa (Sulfonamide AdvReac Nausea & Verified 06/29/22 15:14 Antibiotics) Vomiting Physical Exam Vitals: Vital Signs Temp Pulse Resp BP Pulse Ox 06/30/22 01:22 96 14 70/40 95 06/30/22 01:03 98 16 80/42 95 06/30/22 00:00 95 20 72/39 95 06/29/22 23:30 100 59/23 06/29/22 23:10 101 H 72/39 97 06/29/22 23:00 102 H 84/35 06/29/22 22:58 101 H 18 84/35 99 06/29/22 22:00 113 H 94/65 98 06/29/22 21:52 98.5 F 110 H 16 94/65 100 06/29/22 21:30 115 H 110/40 93 L 06/29/22 21:20 113 H 110/40 100 06/29/22 21:10 116 H 107/54 100 06/29/22 20:44 102.6 F H 112 H 18 81/45 100 06/29/22 20:30 108 H 79/45 100 06/29/22 20:00 113 H 82/47 100 06/29/22 19:00 112 H 118/43 100 06/29/22 18:51 100.9 F H 117 H 24 118/43 95 06/29/22 18:00 114/62 100 06/29/22 17:43 89 16 119/58 98 06/29/22 17:00 104/56 06/29/22 16:00 85 88/73 06/29/22 15:44 97.5 F L 83 17 109/50 97 06/29/22 15:00 73 20 104/54 97 06/29/22 14:00 95/49 93 L 06/29/22 13:55 73 18 95/49 93 L 06/29/22 13:50 89 L 06/29/22 13:25 97.4 F L 71 18 80/52 92 L Intake and Output 06/29/22 06/29/22 06/30/22 14:59 22:59 06:59 Intake Total 6.341 Balance 6.341 Intake: Intake, IV Titration 6.341 Amount Norepinephrine 8 mg In 6.341 Sodium Chloride 0.9% 250 ml @ 0.03 MCG/KG/MIN 4. 476 mls/hr IV .Q24H [facility] Rx#:[id number] Other: Weight 77.111 kg GENERAL EXAM: Alert, 71-year-old white female, comfortable in no apparent distre ss. HEAD: Normocephalic and atraumatic EYES: Normal reaction of pupils, equal size. NOSE: Clear with pink turbinates. THROAT: No erythema or exudates. NECK: No masses, no JVD. CHEST: No chest wall deformity. LUNGS: Equal air entry with no crackles, wheeze, rhonchi or dullness. On 2 L nasal cannula. No conversational dyspnea or accessory muscle use.. CVS: S1 and S2 normal with no audible murmur, regular rhythm. No extra heart sounds ABDOMEN: No hepatosplenomegaly, active bowel sounds, no guarding or rigidity. SPINE: No scoliosis or deformity. Positive CVA tenderness on the right SKIN: No rashes CENTRAL NERVOUS SYSTEM: No focal deficits, tone is normal in all 4 extremities. EXTREMITIES: There is no peripheral edema, clubbing, or cyanosis. Peripheral pulses are intact. Results - Laboratory Findings CBC and BMP: 06/30/22 06:44 06/30/22 01:18 PT/INR, D-dimer PT 10.2 sec (9.0-12.0) 06/29/22 13:59 INR 1.0 (<1.2) 06/29/22 13:59 Abnormal lab findings: Abnormal Labs 06/29/22 06/29/22 06/29/22 13:54 13:59 13:59 WBC 12.3 H Hgb 11.1 L MCHC 30.2 L RDW 16.9 H Neutrophils # 10.7 H Sodium 136 L Potassium 6.1 H* Chloride 112 H Carbon Dioxide 17 L BUN 20 H Creatinine 1.05 H Glucose 144 H POC Glucose (mg/dL) Calcium 7.8 L Alkaline Phosphatase 153 H Total Protein 5.5 L Albumin 2.9 L Urine Appearance Turbid H Urine Protein Trace H Urine Blood Moderate H Urine Nitrite Positive H Ur Leukocyte Esterase Large H Urine RBC 25 H Urine WBC >182 H Urine WBC Clumps Many H Urine Bacteria Occasional H Urine Mucus Many H 06/29/22 23:03 WBC Hgb MCHC RDW Neutrophils # Sodium Potassium Chloride Carbon Dioxide BUN Creatinine Glucose POC Glucose (mg/dL) 122 H Calcium Alkaline Phosphatase Total Protein Albumin Urine Appearance Urine Protein Urine Blood Urine Nitrite Ur Leukocyte Esterase Urine RBC Urine WBC Urine WBC Clumps Urine Bacteria Urine Mucus Assessment and Plan Assessment: Urosepsis, with history of frequent urinary tract infections in the past including ESBL producing organisms. Urinalysis was positive for nitrates and leukocyte esterase. Blood pressure is marginal despite 1.5 L normal saline bolus. Patient was started on norepinephrine which is currently running at 0.03 mics per kilogram per minute. Acute hypoxic respiratory failure currently on 2 L nasal cannula Non-anion gap hyperchloremic metabolic acidosis related to normal saline infusions Hyperkalemia, treated with insulin and dextrose Chronic kidney disease stage IIIa Right hydronephrosis, possibly chronic in nature. Diabetes mellitus type 2 diet-controlled, Osteoarthritis Morbid obesity Plan: Patient's medications, labs, CT of abdomen and pelvis reviewed Continue supplemental oxygen to maintain oxygen saturation 92% or greater Obtain chest x-ray in the morning Patient was given an additional 1 L normal saline bolus Continue with norepinephrine infusion to maintain a map of 65 mmHg or greater Recheck potassium Continue antibiotics Urine and blood cultures pending Discontinue normal saline infusion, transition to D5W Obtain renal bladder ultrasound Pepcid for GI prophylaxis Heparin for DVT prophylaxis Patient will be admitted to the intensive care unit once bed available Prognosis is guarded I have personally seen and examined the patient, performed the documentation and the assessment and plan as written. Number of minutes spent on the visit:20 This is a joint evaluation that was done in the emergency department along with the nurse practitioner. This is a critically ill 71-year-old female patient was presenting with a gram-negative sepsis. The source is most likely the urine as the patient has had multiple UTIs in the past and the patient has had recurrent UTIs. The patient also has had previous urology evaluation for left-sided hydronephrosis secondary to distal left ureteral calculus and she underwent cystoscopy with placement and removal of a left-sided double-J catheter. This was back in 2019. She has been infected with ESBL producing Klebsiella pneumoniae. Based on that, the patient was resuscitated. The patient has severe total of 2 L of IV fluids and the patient is currently on pressors and norepinephrine is running at 0.5 mcg/kg/m. The patient has a central line in her right femoral vein. Urine output is quite low and the Krishnamurthy catheter will be needed for adequate urine output monitoring. CAT scan of the abdomen and pelvis showed right hydronephrosis which could be essentially chronic. Urology will be consulted accordingly. I have switched this patient's antibiotics to IV Merrem based on her previous infections with ESBL producing gram-negative bacteria. She also is acidotic and she is doubled worsening leukocytosis. I'm going to start her on a bicarb infusion at the rate of 100 mL an hour. The patient accordingly with the transferred to the intensive care unit. The renal function will be monitored.Creatinine currently is at 1.28. The patient also has a chronic small right-sided pleural effusion. Overall respiratory status is stable and the patient is currently on 3 L of oxygen nasal cannula. Condition is critical. The patient is hypotensive and septic shock. The patient will be given another bolus of normal saline. The patient will be chest into the intensive care unit once films are not available. This is an evaluation that was done in more than 30 minutes. Time with Patient: Greater than 30
[2022-06-30 03:19] LABS: Potassium 4.5 mmol/L (3.5-5.1)
[2022-06-30] MEDS: DEXTROSE 5% IN WATER 1,000 ML IV SCH ×3 (03:19→22:55)
[2022-06-30 03:31] LABS: Calcium 6.3 mg/dL (8.4-10.2)
[2022-06-30] MEDS ORDERED: CALCIUM GLUCONATE IN NACL 1 GM in SALINE 1 100ML.BAG IVPB ONE (05:32)
[2022-06-30] MEDS: ACETAMINOPHEN TAB 325 MG TAB PO PRN ×2 (05:51→11:30)
[2022-06-30 07:23] LABS: Anisocytosis Slight; HCT 36.4 % (34.0-46.0); HGB 10.5 gm/dL (11.4-16.0); Hypochromasia Marked; MCH 27.7 pg (25.0-35.0); MCHC 28.7 g/dL (31.0-37.0); Macrocytosis Slight; Mean Platelet Volume 8.1; Platelet Count 379 k/uL (150-450); RBC 3.78 m/uL (3.80-5.40); RDW 17.3 % (11.5-15.5); WBC 39.8 k/uL (3.8-10.6)
--- NOTE | 2022-06-30 07:29 | P.HPIM ---
History of Present Illness This is a pleasant 71 years old female with past medical history depression, osteoporosis, pleural effusion, hypertension Patient presents because of right lower quadrant abdominal pain 1-2 days' duration radiating to the back mild to moderate in severity associated with some nausea and generalized weakness. Patient denies chest pain or dyspnea. No change in mental status. No recent fall. She denies smoking alcohol or illicit drugs On admission she was hypotensive with blood pressure 80/52. Currently blood pressure 118/68. The blood pressure improved Also patient had a fever of 102.6 last night She has marked leukocytosis with 12.3 hemoglobin 11.1, platelet count normal. Electrolytes this morning are normal. Creatinine went up slightly 1.28 Glucose 78, calcium low 6.3. Bilirubin and liver enzymes are unremarkable. Urinalysis is suspicious for infection EKG: Sinus tachycardia at [address]-T changes, left axis deviation and poor progression of R-wave, similar to old EKG CT of the abdomen and pelvis with contrast, moderate right hydronephrosis with no hydroureter and perinephric stranding Chest x-ray reviewed by myself showing right pleural effusion and cardiomegaly Of vancomycin and normal saline. Also she started on Lopressor Review of Systems Review of systems CONSTITUTIONAL: No fever, no malaise, no fatigue. HEENT: No recent visual problems or hearing problems. Denied any sore throat. CARDIOVASCULAR: No orthopnea, PND, no palpitations, no syncope. PULMONARY: No shortness of breath, no cough, no hemoptysis. GASTROINTESTINAL: No diarrhea, . Normoactive bowel sounds. NEUROLOGICAL: No headaches, no weakness, no numbness. HEMATOLOGICAL: Denies any bleeding or petechiae. GENITOURINARY: Denies any burning micturition, frequency, or urgency. MUSCULOSKELETAL/RHEUMATOLOGICAL: Denies any joint pain, swelling, or any muscle pain. ENDOCRINE: Denies any polyuria or polydipsia. 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 COLONOSCOPY. LAP BAND THEN HAD BARIATRIC SURGERY;. bladder surgery may have been for a benign cyst but is not sure. 16 LBS ABD. TISSUE REMOVED Past Anesthesia/Blood Transfusion Reactions: No Reported Reaction Past Psychological History: Anxiety, Depression Smoking Status: Never smoker Past Alcohol Use History: None Reported Past Drug Use History: None Reported - Past Family History Mother Family Medical History: Diabetes Mellitus Additional Family Medical History / Comment(s): At [facility] with UTI. Father Family Medical History: CVA/TIA, Diabetes Mellitus Sister(s) Family Medical History: Deep Vein Thrombosis (DVT) Medications and Allergies Home Medications Medication Instructions Recorded Confirmed Type Oxybutynin Chloride 5 mg PO BID 05/15/18 06/29/22 History buPROPion XL [Wellbutrin XL] 150 mg PO DAILY 05/15/18 06/29/22 History Metoprolol Tartrate [Lopressor] 50 mg PO BID 02/28/20 06/29/22 History Albuterol Sulfate [Albuterol 2 puff PO RT-QID PRN 06/29/22 06/29/22 History Sulfate Hfa] Alendronate Sodium [Fosamax] 70 mg PO WE 06/29/22 06/29/22 History Benzonatate [Tessalon Perles] 100 mg PO TID PRN 06/29/22 06/29/22 History Allergies Allergy/AdvReac Type Severity Reaction Status Date / Time meperidine [From Demerol] AdvReac Nausea & Verified 06/29/22 13:30 Vomiting Penicillins AdvReac "FALLS Verified 06/29/22 15:14 ALOT"/Weakness Sulfa (Sulfonamide AdvReac Nausea & Verified 06/29/22 15:14 Antibiotics) Vomiting Physical Exam Vitals: Vital Signs Temp Pulse Resp BP Pulse Ox 06/30/22 05:11 92 16 104/55 95 06/30/22 03:35 119/54 06/30/22 02:24 93 16 74/43 99 06/30/22 01:22 96 14 70/40 95 06/30/22 01:03 98 16 80/42 95 06/30/22 00:00 95 20 72/39 95 06/29/22 23:30 100 59/23 06/29/22 23:10 101 H 72/39 97 06/29/22 23:00 102 H 84/35 04/18/23 22:58 101 H 18 84/35 99 06/29/22 22:00 113 H 94/65 98 06/29/22 21:52 98.5 F 110 H 16 94/65 100 06/29/22 21:30 115 H 110/40 93 L 06/29/22 21:20 113 H 110/40 100 06/29/22 21:10 116 H 107/54 100 06/29/22 20:44 102.6 F H 112 H 18 81/45 100 06/29/22 20:30 108 H 79/45 100 06/29/22 20:00 113 H 82/47 100 06/29/22 19:00 112 H 118/43 100 06/29/22 18:51 100.9 F H 117 H 24 118/43 95 06/29/22 18:00 114/62 100 06/29/22 17:43 89 16 119/58 98 06/29/22 17:00 104/56 06/29/22 16:00 85 88/73 06/29/22 15:44 97.5 F L 83 17 109/50 97 06/29/22 15:00 73 20 104/54 97 06/29/22 14:00 95/49 93 L 06/29/22 13:55 73 18 95/49 93 L 06/29/22 13:50 89 L 06/29/22 13:25 97.4 F L 71 18 80/52 92 L Intake and Output 06/29/22 06/29/22 06/30/22 14:59 22:59 06:59 Intake Total 64.247 Balance 64.247 Intake: Intake, IV Titration 64.247 Amount Norepinephrine 8 mg In 64.247 Sodium Chloride 0.9% 250 ml @ 0.03 MCG/KG/MIN 4. 476 mls/hr IV .Q24H [facility] Rx#:[id number] Other: Weight 77.111 kg -GENERAL: The patient is alert and oriented x3, not in any acute distress. Well developed, well nourished. Generally weak HEENT: Pupils are round and equally reacting to light. EOMI. No scleral icterus. No conjunctival pallor. Normocephalic, atraumatic. No pharyngeal erythema. No thyromegaly. CARDIOVASCULAR: S1 and S2 present. No murmurs, rubs, or gallops. PULMONARY: Chest is clear to auscultation, no wheezing or crackles. -ABDOMEN: Soft, right lower quadrant tenderness and no guarding or rebound tenderness, nondistended, normoactive bowel sounds. No palpable organomegaly. MUSCULOSKELETAL: No joint swelling or deformity. EXTREMITIES: No cyanosis, clubbing, or pedal edema. NEUROLOGICAL: Gross neurological examination did not reveal any focal deficits. SKIN: No rashes. no petechiae. Results CBC & Chem 7: 06/29/22 13:59 06/30/22 01:18 Labs: Abnormal Lab Results - Last 24 Hours (Table) 06/29/22 06/29/22 06/29/22 Range/Units 13:54 13:59 13:59 WBC 12.3 H (3.8-10.6) k/uL Hgb 11.1 L (11.4-16.0) gm/dL MCHC 30.2 L (31.0-37.0) g/dL RDW 16.9 H (11.5-15.5) % Neutrophils # 10.7 H (1.3-7.7) k/uL Sodium 136 L (137-145) mmol/L Potassium 6.1 H* (3.5-5.1) mmol/L Chloride 112 H (98-107) mmol/L Carbon Dioxide 17 L (22-30) mmol/L BUN 20 H (7-17) mg/dL Creatinine 1.05 H (0.52-1.04) mg/dL Glucose 144 H (74-99) mg/dL POC Glucose (mg/dL) (70-110) mg/dL Calcium 7.8 L (8.4-10.2) mg/dL Alkaline Phosphatase 153 H (38-126) U/L Total Protein 5.5 L (6.3-8.2) g/dL Albumin 2.9 L (3.5-5.0) g/dL Urine Appearance Turbid H (Clear) Urine Protein Trace H (Negative) Urine Blood Moderate H (Negative) Urine Nitrite Positive H (Negative) Ur Leukocyte Esterase Large H (Negative) Urine RBC 25 H (0-5) /hpf Urine WBC >182 H (0-5) /hpf Urine WBC Clumps Many H (None) /hpf Urine Bacteria Occasional H (None) /hpf Urine Mucus Many H (None) /hpf 06/29/22 06/30/22 Range/Units 23:03 01:18 WBC (3.8-10.6) k/uL Hgb (11.4-16.0) gm/dL MCHC (31.0-37.0) g/dL RDW (11.5-15.5) % Neutrophils # (1.3-7.7) k/uL Sodium (137-145) mmol/L Potassium (3.5-5.1) mmol/L Chloride 117 H (98-107) mmol/L Carbon Dioxide 11 L (22-30) mmol/L BUN 18 H (7-17) mg/dL Creatinine 1.28 H (0.52-1.04) mg/dL Glucose (74-99) mg/dL POC Glucose (mg/dL) 122 H (70-110) mg/dL Calcium 6.3 L* (8.4-10.2) mg/dL Alkaline Phosphatase (38-126) U/L Total Protein (6.3-8.2) g/dL Albumin (3.5-5.0) g/dL Urine Appearance (Clear) Urine Protein (Negative) Urine Blood (Negative) Urine Nitrite (Negative) Ur Leukocyte Esterase (Negative) Urine RBC (0-5) /hpf Urine WBC (0-5) /hpf Urine WBC Clumps (None) /hpf Urine Bacteria (None) /hpf Urine Mucus (None) /hpf Microbiology - Last 24 Hours (Table) 06/29/22 13:54 Urine Culture - Preliminary Urine,Voided Assessment and Plan Assessment: Septic shock Acute urinary tract infection Mild right hydronephrosis History of depression History of osteoporosis History of hypertension, currently hypotensive chronic kidney disease stage III Chronic right pleural effusion Plan: Continued antibiotic, currently on ceftriaxone and IV vancomycin to cover gram- negative and MRSA Continue with pressors as per pulmonary/critical care team while consult Follow-up culture results Follow-up renal ultrasound Labs and medication were reviewed.. Continue same treatment. Continue with symptomatic treatment. Resume home medication. Monitor labs and vitals. DVT and GI prophylaxis. Further recommendations as per clinical course of the patient DVT prophylaxis: Subcutaneous heparin GI Prophylaxis: Pepcid PT/OT: Pending Prognosis is guarded
[2022-06-30 07:40] LABS: MCV 96.3 fL (80.0-100.0)
--- NOTE | 2022-06-30 08:21 | XR ---
EXAMINATION TYPE: XR chest 1V portable DATE OF EXAM: 06/30/2022 COMPARISON: 12/18/2021 INDICATION: Short of breath TECHNIQUE: Single frontal view of the chest is obtained. FINDINGS: The heart size is upper limits of normal. The pulmonary vasculature is normal. Right lower lobe infiltrate is present. There is a small right pleural effusion. IMPRESSION: 1. Small right pleural effusion with adjacent infiltrate. Correlate for atelectasis.
--- NOTE | 2022-06-30 08:59 | US ---
EXAMINATION TYPE: US renals and bladder DATE OF EXAM: 06/30/2022 COMPARISON: NONE CLINICAL INDICATION: Female, 71 years old with history of right hydronephrosis; right flank pain, CT showed hydro, h/o shows stones EXAM MEASUREMENTS: Right Kidney: 9.2 x 3.2 x 3.9 cm Left Kidney: 8.0 x 4.0 x 4.2 cm Right Kidney: anechoic superior lesion 1.6 x 2.1 x 1.9cm, echogenic foci with shadowing likely repres ent stones, mild hydronephrosis. Left Kidney: echogenic foci may represent stones Bladder: not seen IMPRESSION: 1. Right renal stones with mild hydronephrosis. 2. Nonobstructing left renal stones.
[2022-06-30 09:01] LABS: Band Neutrophils % 12 %; Lymphocytes # (M) 1.59 k/uL (1.0-4.8); Metamyelocytes % 1 %; Neutrophils % (M) 82 %; Nucleated Red Blood Cells 0 /100 WBC (0-0); Total Cells Counted 200
[2022-06-30 09:02] LABS: Toxic Granulation Present; Toxic Vacuolation Present
[2022-06-30] MEDS ORDERED: ONDANSETRON 4 MG in SODIUM CHLORIDE 0.9% 50 ML IVPB PRN (09:33)
[2022-06-30] MEDS ORDERED: ACETAMINOPHEN TAB 325 MG TAB PO STA (09:33)
[2022-06-30] MEDS ORDERED: ONDANSETRON 4 MG/2 ML VIAL IVP PRN (09:38)
[2022-06-30] MEDS: NOREPINEPHRINE 8 MG in SODIUM CHLORIDE 0.9% 250 ML IV SCH ×3 (10:15→22:59)
[2022-06-30] MEDS: DEXTROSE 5% IN WATER 1,000 ML with SODIUM BICARB (1 MEQ/ML) 150 ML IV SCH (12:45)
[2022-06-30] MEDS ORDERED: MEROPENEM 2 GM in SODIUM CHLORIDE 0.9% 100 ML IVPB SCH (13:00)
[2022-06-30] MEDS: CEFTAZIDIME/AVIBACTAM 1.25 GM in SODIUM CHLORIDE 0.9% 100 ML IVPB SCH ×2 (13:37→21:05)
--- NOTE | 2022-06-30 14:45 | P.GSCN ---
History of Present Illness Consult date: 06/30/22 Reason for Consult: Hydronephrosis Requesting physician: Yulisa Ventura History of present illness: The patient is a 71-year-old female with a past medical history of diabetes mellitus, hypertension, kidney stones, frequent UTIs with previous ESBL producing organisms. She presented emergency department on 06/29/22 with complaints of right lower quadrant abdominal pain that radiates to her back. The patient has been febrile with a T-max of 102.6F. She has also been hypotensive requiring Levophed. The patient reports burning with urination for approximately 2 weeks. She denies any hematuria, frequent urination, or incontinence. Her UA was a positive for nitrates, leukocyte esterase,and WBC > 182. Urine culture pending. The patient was initially receiving a combination of Rocephin and vancomycin. However, her preliminary blood culture is growing Klebsiella pneumoniae and the antibiotic has been changed to Avycaz accordingly. Abdomen pelvis CT with contrast shows moderate right hydronephrosis without hydroureter. Perinephric stranding is present. Renal and bladder ultrasound shows right renal stones with mild hydronephrosis and nonobstructing left renal stones. 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 COLONOSCOPY. LAP BAND THEN HAD BARIATRIC SURGERY;. bladder surgery may have been for a benign cyst but is not sure. 16 LBS ABD. TISSUE REMOVED Past Anesthesia/Blood Transfusion Reactions: No Reported Reaction Past Psychological History: Anxiety, Depression Smoking Status: Never smoker Past Alcohol Use History: None Reported Past Drug Use History: None Reported - Past Family History Mother Family Medical History: Diabetes Mellitus Additional Family Medical History / Comment(s): At [facility] with UTI. Father Family Medical History: CVA/TIA, Diabetes Mellitus Sister(s) Family Medical History: Deep Vein Thrombosis (DVT) Medications and Allergies Home Medications Medication Instructions Recorded Confirmed Type Oxybutynin Chloride 5 mg PO BID 05/15/18 06/29/22 History buPROPion XL [Wellbutrin XL] 150 mg PO DAILY 05/15/18 06/29/22 History Metoprolol Tartrate [Lopressor] 50 mg PO BID 02/28/20 06/29/22 History Albuterol Sulfate [Albuterol 2 puff PO RT-QID PRN 06/29/22 06/29/22 History Sulfate Hfa] Alendronate Sodium [Fosamax] 70 mg PO WE 06/29/22 06/29/22 History Benzonatate [Tessalon Perles] 100 mg PO TID PRN 06/29/22 06/29/22 History Allergies Allergy/AdvReac Type Severity Reaction Status Date / Time meperidine [From Demerol] AdvReac Nausea & Verified 06/29/22 13:30 Vomiting Penicillins AdvReac "FALLS Verified 06/29/22 15:14 ALOT"/Weakness Sulfa (Sulfonamide AdvReac Nausea & Verified 06/29/22 15:14 Antibiotics) Vomiting Surgical - Exam Vital Signs Temp Pulse Resp BP Pulse Ox 97.4 F L 71 18 80/52 92 L 06/29/22 13:25 06/29/22 13:25 06/29/22 13:25 06/29/22 13:25 06/29/22 13:25 General: Well developed, well nourished. No acute distress. HEENT: Head is atraumatic, normocephalic. Lungs: Respirations even and nonlabored. On 3L NC. Abdomen/GI: Soft, obese, non-distended. RLQ abdominal tenderness. Right flank tenderness. : Krishnamurthy catheter draining cloudy yellow urine Skin: Warm and dry Neurologic: Alert and oriented 3, CN II-XII grossly intact. No focal deficits. Psychiatric: Appropriate mood and affect. Results - Labs 06/30/22 06:44 06/30/22 01:18 Abnormal Lab Results - Last 24 Hours (Table) 06/29/22 06/29/22 06/29/22 Range/Units 13:54 13:59 23:03 WBC (3.8-10.6) k/uL RBC (3.80-5.40) m/uL Hgb (11.4-16.0) gm/dL MCHC (31.0-37.0) g/dL RDW (11.5-15.5) % Neutrophils # (Manual) (1.3-7.7) k/uL Metamyelocytes # (Man) (0) k/uL Sodium 136 L (137-145) mmol/L Potassium 6.1 H* (3.5-5.1) mmol/L Chloride 112 H (98-107) mmol/L Carbon Dioxide 17 L (22-30) mmol/L BUN 20 H (7-17) mg/dL Creatinine 1.05 H (0.52-1.04) mg/dL Glucose 144 H (74-99) mg/dL POC Glucose (mg/dL) 122 H (70-110) mg/dL Calcium 7.8 L (8.4-10.2) mg/dL Alkaline Phosphatase 153 H (38-126) U/L Total Protein 5.5 L (6.3-8.2) g/dL Albumin 2.9 L (3.5-5.0) g/dL Urine Appearance Turbid H (Clear) Urine Protein Trace H (Negative) Urine Blood Moderate H (Negative) Urine Nitrite Positive H (Negative) Ur Leukocyte Esterase Large H (Negative) Urine RBC 25 H (0-5) /hpf Urine WBC >182 H (0-5) /hpf Urine WBC Clumps Many H (None) /hpf Urine Bacteria Occasional H (None) /hpf Urine Mucus Many H (None) /hpf 06/30/22 06/30/22 Range/Units 01:18 06:44 WBC 39.8 H (3.8-10.6) k/uL RBC 3.78 L (3.80-5.40) m/uL Hgb 10.5 L (11.4-16.0) gm/dL MCHC 28.7 L (31.0-37.0) g/dL RDW 17.3 H (11.5-15.5) % Neutrophils # (Manual) 37.40 H (1.3-7.7) k/uL Metamyelocytes # (Man) 0.40 H (0) k/uL Sodium (137-145) mmol/L Potassium (3.5-5.1) mmol/L Chloride 117 H (98-107) mmol/L Carbon Dioxide 11 L (22-30) mmol/L BUN 18 H (7-17) mg/dL Creatinine 1.28 H (0.52-1.04) mg/dL Glucose (74-99) mg/dL POC Glucose (mg/dL) (70-110) mg/dL Calcium 6.3 L* (8.4-10.2) mg/dL Alkaline Phosphatase (38-126) U/L Total Protein (6.3-8.2) g/dL Albumin (3.5-5.0) g/dL Urine Appearance (Clear) Urine Protein (Negative) Urine Blood (Negative) Urine Nitrite (Negative) Ur Leukocyte Esterase (Negative) Urine RBC (0-5) /hpf Urine WBC (0-5) /hpf Urine WBC Clumps (None) /hpf Urine Bacteria (None) /hpf Urine Mucus (None) /hpf Microbiology - Last 24 Hours (Table) 06/29/22 13:55 Blood Culture Gram Stain - Preliminary Blood Blood Culture - Preliminary Klebsiella pneumoniae 06/29/22 13:54 Urine Culture - Preliminary Urine,Voided Diabetes panel 06/29/22 06/30/22 Range/Units 13:59 01:18 Sodium 136 L 139 (137-145) mmol/L Potassium 6.1 H* 4.5 (3.5-5.1) mmol/L Chloride 112 H 117 H (98-107) mmol/L Carbon Dioxide 17 L 11 L (22-30) mmol/L BUN 20 H 18 H (7-17) mg/dL Creatinine 1.05 H 1.28 H (0.52-1.04) mg/dL Glucose 144 H 78 (74-99) mg/dL Calcium 7.8 L 6.3 L* (8.4-10.2) mg/dL AST 25 (14-36) U/L ALT 15 (4-34) U/L Alkaline Phosphatase 153 H (38-126) U/L Total Protein 5.5 L (6.3-8.2) g/dL Albumin 2.9 L (3.5-5.0) g/dL Calcium panel 04/18/23 04/19/23 Range/Units 13:59 01:18 Calcium 7.8 L 6.3 L* (8.4-10.2) mg/dL Albumin 2.9 L (3.5-5.0) g/dL Pituitary panel 06/29/22 06/30/22 Range/Units 13:59 01:18 Sodium 136 L 139 (137-145) mmol/L Potassium 6.1 H* 4.5 (3.5-5.1) mmol/L Chloride 112 H 117 H (98-107) mmol/L Carbon Dioxide 17 L 11 L (22-30) mmol/L BUN 20 H 18 H (7-17) mg/dL Creatinine 1.05 H 1.28 H (0.52-1.04) mg/dL Glucose 144 H 78 (74-99) mg/dL Calcium 7.8 L 6.3 L* (8.4-10.2) mg/dL Adrenal panel 06/29/22 06/30/22 Range/Units 13:59 01:18 Sodium 136 L 139 (137-145) mmol/L Potassium 6.1 H* 4.5 (3.5-5.1) mmol/L Chloride 112 H 117 H (98-107) mmol/L Carbon Dioxide 17 L 11 L (22-30) mmol/L BUN 20 H 18 H (7-17) mg/dL Creatinine 1.05 H 1.28 H (0.52-1.04) mg/dL Glucose 144 H 78 (74-99) mg/dL Calcium 7.8 L 6.3 L* (8.4-10.2) mg/dL Total Bilirubin 0.5 (0.2-1.3) mg/dL AST 25 (14-36) U/L ALT 15 (4-34) U/L Alkaline Phosphatase 153 H (38-126) U/L Total Protein 5.5 L (6.3-8.2) g/dL Albumin 2.9 L (3.5-5.0) g/dL - Imaging CT scan - abdomen: report reviewed CT scan - pelvis: report reviewed US - kidney/bladder: report reviewed Assessment and Plan Assessment: The patient was examined in the emergency department. The patient is afebrile, vitals stable, and she is on 3 L nasal cannula. Her WBC has increased to 39.8. Serum creatinine is 1.28, which is approximately her baseline. At this time the etiology of her hydronephrosis is unclear. 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 If her hydronephrosis persists she may require stent placement. However, no urological interventions are warranted at this time until her infection clears. (1) Hydronephrosis Current Visit: Yes Status: Acute Code(s): N13.30 - UNSPECIFIED HYDRONEPHROSIS SNOMED Code(s): 95664041 Plan: - Continue antibiotics per medicine - Awaiting finalization of urine culture - Maintain Krishnamurthy catheter - Continue supportive measures - Further recommendations forthcoming from surgeon Thank you for this consultation Impression and plan of care have been directed as dictated by the signing physician. Lidya Riddle nurse practitioner acting as scribe for signing physician. Lidya Riddle [facility] Palliative Care/Urology [facility] [id number] Email: [email or web address] The patient has been examined and interviewed THe ct scan has been reviewed. The patient has bilateral non obstructing renal stones. SHe has some mod caliectasis on the right probably due to a congenital upj obstruction. She is getting supportive care and antibiotics. We will see how she responds with antibiotics before deciding on a potential stent intervention Ora Chaves MD
[2022-06-30] MEDS: HYDROcodone/APAP 5-325MG 1 EACH TAB PO PRN ×2 (15:28→21:04)
[2022-06-30 19:55] LABS: Glucose,Whole Blood 148 mg/dL (70-110)
[2022-06-30] MEDS: FAMOTIDINE 20 MG/2 ML VIAL IV SCH (20:59)
[2022-06-30] MEDS: fentaNYL (PF) 50 MCG/ML 2 ML AMP IVP PRN (23:54)
[2022-07-01] MEDS ORDERED: VANCOMYCIN 1,500 MG in SODIUM CHLORIDE 0.9% 500 ML 500 ML IVPB SCH ×2
[2022-07-01] MEDS: DEXTROSE 5% IN WATER 1,000 ML with SODIUM BICARB (1 MEQ/ML) 150 ML IV SCH ×3 (00:12→21:18)
[2022-07-01] MEDS: NOREPINEPHRINE 8 MG in SODIUM CHLORIDE 0.9% 250 ML IV SCH ×3 (03:25→13:51)
[2022-07-01] MEDS: CEFTAZIDIME/AVIBACTAM 1.25 GM in SODIUM CHLORIDE 0.9% 100 ML IVPB SCH ×3 (04:58→21:39)
[2022-07-01] MEDS: HYDROcodone/APAP 5-325MG 1 EACH TAB PO PRN ×3 (06:01→19:34)
[2022-07-01 06:45] LABS: Potassium 4.4 mmol/L (3.5-5.1)
[2022-07-01] MEDS: HEPARIN SODIUM,PORCINE/PF 5,000 UNIT/0.5 ML SYRINGE SQ SCH ×2 (07:48→17:33)
[2022-07-01] MEDS: fentaNYL (PF) 50 MCG/ML 2 ML AMP IVP PRN (07:48)
[2022-07-01 07:51] LABS: Anisocytosis Slight; HGB 10.2 gm/dL (11.4-16.0); Hypochromasia Marked; MCH 27.6 pg (25.0-35.0); MCHC 29.9 g/dL (31.0-37.0); MCV 92.5 fL (80.0-100.0); Mean Platelet Volume 8.9; Platelet Count 315 k/uL (150-450); RBC 3.68 m/uL (3.80-5.40); RDW 17.4 % (11.5-15.5)
--- NOTE | 2022-07-01 08:21 | P.PN ---
Subjective Progress Note Date: 07/01/22 The patient is a 71-year-old female with a past medical history of diabetes mellitus, hypertension, kidney stones, frequent UTIs with previous ESBL producing organisms. She presented emergency department on 06/29/22 with complaints of right lower quadrant abdominal pain that radiates to her back. The patient has been febrile with a T-max of 102.6F. She has also been hypotensive requiring Levophed. The patient reports burning with urination for approximately 2 weeks. She denies any hematuria, frequent urination, or incontinence. Her UA was a positive for nitrates, leukocyte esterase,and WBC > 182. Urine culture pending. The patient was initially receiving a combination of Rocephin and vancomycin. However, her preliminary blood culture is growing Klebsiella pneumoniae and the antibiotic has been changed to Avycaz accordingly. Abdomen pelvis CT with contrast shows moderate right hydronephrosis without hydroureter. Perinephric stranding is present. Renal and bladder ultrasound shows right renal stones with mild hydronephrosis and nonobstructing left renal stones. 06/30 The patient was examined in the emergency department. The patient is afebrile, vitals stable, and she is on 3 L nasal cannula. Her WBC has increased to 39.8. Serum creatinine is 1.28, which is approximately her baseline. At this time the etiology of her hydronephrosis is unclear. 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 If her hydronephrosis persists she may require stent placement. However, no urological interventions are warranted at this time until her infection clears. We will see how she responds with antibiotics before deciding on a potential stent intervention. Objective - Vital Signs Vital signs: Vital Signs Temp 98.2 F 07/01/22 06:18 Pulse 98 07/01/22 07:00 Resp 18 07/01/22 07:00 BP 108/53 07/01/22 07:00 Pulse Ox 96 07/01/22 07:00 FiO2 Intake & Output 06/30/22 07/01/22 07/01/22 18:59 06:59 18:59 Intake Total 451.753 489.273 Output Total 600 760 Balance -148.247 -270.727 Intake: Intake, IV Titration 451.753 489.273 Amount Norepinephrine 8 mg In 451.753 258.000 Sodium Chloride 0.9% 250 ml @ 0.03 MCG/KG/MIN 4. 476 mls/hr IV .Q24H [facility] Rx#:[id number] Norepinephrine 8 mg In 231.273 Sodium Chloride 0.9% 250 ml @ 0.03 MCG/KG/MIN 4. 476 mls/hr IV .Q24H [facility] Rx#:[id number] Output: Urine 600 760 Uretheral (Krishnamurthy) 600 - Exam General: Well developed, well nourished. No acute distress. HEENT: Head is atraumatic, normocephalic. Lungs: Respirations even and nonlabored. On 4L NC. Abdomen/GI: Soft, obese, non-distended. RLQ abdominal tenderness. Right flank tenderness. : Krishnamurthy catheter draining cloudy yellow urine Skin: Warm and dry Neurologic: Alert and oriented 3, CN II-XII grossly intact. No focal deficits. Psychiatric: Appropriate mood and affect. - Labs CBC & Chem 7: 07/01/22 06:18 07/01/22 06:18 Labs: Abnormal Lab Results - Last 24 Hours (Table) 06/30/22 06/30/22 07/01/22 Range/Units 06:44 19:53 06:18 WBC (3.8-10.6) k/uL RBC (3.80-5.40) m/uL Hgb (11.4-16.0) gm/dL MCHC (31.0-37.0) g/dL RDW (11.5-15.5) % Neutrophils # (Manual) 37.40 H (1.3-7.7) k/uL Metamyelocytes # (Man) 0.40 H (0) k/uL Sodium 136 L (137-145) mmol/L Chloride 112 H (98-107) mmol/L Carbon Dioxide 18 L (22-30) mmol/L BUN 20 H (7-17) mg/dL Creatinine 1.22 H (0.52-1.04) mg/dL Glucose 113 H (74-99) mg/dL POC Glucose (mg/dL) 148 H (70-110) mg/dL Calcium 6.0 L* (8.4-10.2) mg/dL 07/01/22 Range/Units 06:18 WBC 26.0 H (3.8-10.6) k/uL RBC 3.68 L (3.80-5.40) m/uL Hgb 10.2 L (11.4-16.0) gm/dL MCHC 29.9 L (31.0-37.0) g/dL RDW 17.4 H (11.5-15.5) % Neutrophils # (Manual) (1.3-7.7) k/uL Metamyelocytes # (Man) (0) k/uL Sodium (137-145) mmol/L Chloride (98-107) mmol/L Carbon Dioxide (22-30) mmol/L BUN (7-17) mg/dL Creatinine (0.52-1.04) mg/dL Glucose (74-99) mg/dL POC Glucose (mg/dL) (70-110) mg/dL Calcium (8.4-10.2) mg/dL Microbiology - Last 24 Hours (Table) 06/29/22 13:55 Blood Culture Gram Stain - Preliminary Blood Blood Culture - Preliminary Klebsiella pneumoniae Assessment and Plan Assessment: The patient reports that both her abdominal pain and right flank pain have improved. She continues to be afebrile. However, she is still on Levophed. WBC has decreased from 39.8 yesterday to 26.0 today. Serum creatinine 1.22. The patient appears to be responding well to the antibiotics. Therefore, no stent intervention is warranted at this time for her probable congenital UPJ obst ruction. (1) Hydronephrosis Current Visit: Yes Status: Acute Code(s): N13.30 - UNSPECIFIED HYDRONEPHROSIS SNOMED Code(s): 78688885 Plan: - Continue antibiotics per medicine - Awaiting finalization of urine culture - Maintain Krishnamurthy catheter - Continue supportive measures - Monitor WBC - No stent placement warranted at this time Impression and plan of care have been directed as dictated by the signing physician. Lidya Riddle nurse practitioner acting as scribe for signing physician. Lidya Riddle [facility] Palliative Care/Urology [place] [id number] Email: [email or web address] I have examined and interviewed the patient I concur with the above note The patient upon rereview has a congential right upj with chronic hydro. We will continue to monitor and treat with antibiotics. Pierre Chaves MD
[2022-07-01 08:43] LABS: Band Neutrophils % 3 %; Lymphocytes # (M) 0.78 k/uL (1.0-4.8); Monocytes # (M) 1.04 k/uL (0-1.0); Neutrophils % (M) 90 %; Nucleated Red Blood Cells 0 /100 WBC (0-0); Total Cells Counted 100
[2022-07-01 08:44] LABS: Toxic Granulation Present; Toxic Vacuolation Present
[2022-07-01] MEDS ORDERED: CALCIUM GLUCONATE IN NACL 1 GM in SALINE 1 100ML.BAG IVPB ONE (09:14)
[2022-07-01] MEDS ORDERED: ONDANSETRON 4 MG/2 ML VIAL IVP STA (09:16)
--- NOTE | 2022-07-01 09:18 | P.PN ---
Subjective This is a pleasant 71 years old female with past medical history depression, osteoporosis, pleural effusion, hypertension Patient presents because of right lower quadrant abdominal pain 1-2 days' duration radiating to the back mild to moderate in severity associated with some nausea and generalized weakness. Patient denies chest pain or dyspnea. No change in mental status. No recent fall. She denies smoking alcohol or illicit drugs On admission she was hypotensive with blood pressure 80/52. Currently blood pressure 118/68. The blood pressure improved Also patient had a fever of 102.6 last night She has marked leukocytosis with 12.3 hemoglobin 11.1, platelet count normal. Electrolytes this morning are normal. Creatinine went up slightly 1.28 Glucose 78, calcium low 6.3. Bilirubin and liver enzymes are unremarkable. Urinalysis is suspicious for infection EKG: Sinus tachycardia at [address]-T changes, left axis gifty ation and poor progression of R-wave, similar to old EKG CT of the abdomen and pelvis with contrast, moderate right hydronephrosis with no hydroureter and perinephric stranding Chest x-ray reviewed by myself showing right pleural effusion and cardiomegaly Of vancomycin and normal saline. Also she started on Lopressor 07/01/2022 Patient awake and alert but slightly lethargic. She's been complaining of from mild headache and tremor in her hand but no overt weakness or numbness. She's feeling nausea she says some popsicles this morning that went real, she feels hungry and she was nausea medicine and see if she can start eating. No chest pain or dyspnea. No abdominal pain. No diarrhea. She remains on small dose of Levophed at 0.03 also she is on sodium bicarbonate 100 mL per hour and Blood culture from 2 days ago came back positive for Klebsiella. We are going to repeat blood culture today to confirm clearance Objective - Vital Signs Vital signs: Vital Signs Temp 98.2 F 07/01/22 06:18 Pulse 96 07/01/22 08:20 Resp 18 07/01/22 07:00 BP 108/53 07/01/22 07:00 Pulse Ox 96 07/01/22 08:11 FiO2 Intake & Output 06/30/22 07/01/22 07/01/22 18:59 06:59 18:59 Intake Total 451.753 489.273 Output Total 600 760 Balance -148.247 -270.727 Intake: Intake, IV Titration 451.753 489.273 Amount Norepinephrine 8 mg In 451.753 258.000 Sodium Chloride 0.9% 250 ml @ 0.03 MCG/KG/MIN 4. 476 mls/hr IV .Q24H [facility] Rx#:[id number] Norepinephrine 8 mg In 231.273 Sodium Chloride 0.9% 250 ml @ 0.03 MCG/KG/MIN 4. 476 mls/hr IV .Q24H [facility] Rx#:[id number] Output: Urine 600 760 Uretheral (Krishnamurthy) 600 - Exam -GENERAL: The patient is alert and oriented x3, not in any acute distress. obese. Lethargic HEENT: Pupils are round and equally reacting to light. EOMI. No scleral icterus. No conjunctival pallor. Normocephalic, atraumatic. No pharyngeal erythema. No thyromegaly. CARDIOVASCULAR: S1 and S2 present. No murmurs, rubs, or gallops. PULMONARY: Chest is clear to auscultation, no wheezing or crackles. -ABDOMEN: Soft, nontender, nondistended, normoactive bowel sounds. No palpable organomegaly. Krishnamurthy catheter in place MUSCULOSKELETAL: No joint swelling or deformity. EXTREMITIES: No cyanosis, clubbing, or pedal edema. NEUROLOGICAL: Gross neurological examination did not reveal any focal deficits. SKIN: No rashes. no petechiae. - Labs CBC & Chem 7: 07/01/22 06:18 07/01/22 06:18 Labs: Abnormal Lab Results - Last 24 Hours (Table) 06/30/22 07/01/22 07/01/22 Range/Units 19:53 06:18 06:18 WBC 26.0 H (3.8-10.6) k/uL RBC 3.68 L (3.80-5.40) m/uL Hgb 10.2 L (11.4-16.0) gm/dL MCHC 29.9 L (31.0-37.0) g/dL RDW 17.4 H (11.5-15.5) % Neutrophils # (Manual) 24.10 H (1.3-7.7) k/uL Lymphocytes # (Manual) 0.78 L (1.0-4.8) k/uL Monocytes # (Manual) 1.04 H (0-1.0) k/uL Sodium 136 L (137-145) mmol/L Chloride 112 H (98-107) mmol/L Carbon Dioxide 18 L (22-30) mmol/L BUN 20 H (7-17) mg/dL Creatinine 1.22 H (0.52-1.04) mg/dL Glucose 113 H (74-99) mg/dL POC Glucose (mg/dL) 148 H (70-110) mg/dL Calcium 6.0 L* (8.4-10.2) mg/dL Microbiology - Last 24 Hours (Table) 06/29/22 13:55 Blood Culture Gram Stain - Preliminary Blood Blood Culture - Preliminary Klebsiella pneumoniae Assessment and Plan Assessment: Septic shock Acute urinary tract infection Mild right hydronephrosis Klebsiella bacteremia History of depression History of osteoporosis History of hypertension, currently hypotensive chronic kidney disease stage III Chronic right pleural effusion Plan: Continued antibiotic, currently on ceftazidime Follow-up repeat blood culture Continue with pressors as per pulmonary/critical care team while consult Urologist consult on the case Follow-up culture results Continue with IV hydration Labs and medication were reviewed.. Continue same treatment. Continue with symptomatic treatment. Resume home medication. Monitor labs and vitals. DVT and GI prophylaxis. Further recommendations as per clinical course of the patient DVT prophylaxis: Subcutaneous heparin GI Prophylaxis: Pepcid PT/OT: Pending, deferred Prognosis is guarded
--- NOTE | 2022-07-01 13:32 | P.PN ---
Subjective Progress Note Date: 07/01/22 I'm seeing this patient in new consultation today 06/30/2022 in the emergency room for urosepsis. Patient is a 71-year-old white female with past medical history of frequent UTIs with previous ESBL producing organisms in the past, kidney stones, diabetes mellitus, hypertension, osteoarthritis. Patient was previously seen by Dr. Boyd in the past for a small right pleural effusion. Patient presented to the emergency room yesterday afternoon for right flank and abdominal pain that started earlier that morning. Patient does admit some difficulty urinating and intermittent fever and chills. She denies any hematuria, nausea or vomiting, diarrhea, constipation, black or bloody stools. Urinalysis on admission was positive for nitrates and leukocytes. Urine culture is pending. Patient was originally admitted to the general medical floor, however, she became quite hypotensive despite being given a total of 1.5 L normal saline. She currently has her norepinephrine infusing at 0.03 mics per k ilogram per minute. There is normal saline infusing at 167 mL per hour. Blood pressure still marginal. CT of the abdomen and pelvis with contrast shows moderate right-sided hydronephrosis without hydroureter and perinephric stranding. Hydronephrosis might be chronic in nature, as it has been dem onstrated on previous imaging. Patient's CBC on arrival shows leukocytosis with a WBC count of 12.3, hemoglobin 11.1, hematocrit 36.8, platelets 339,000. Patient's BMP shows a sodium 136, potassium 6.1, chloride 112, serum CO2 17, BUN 20, creatinine 1.05, glucose 144. Patient's hyperkalemia was treated with insulin and dextrose. No recheck has been performed yet. Patient's lactic acid level is 1.6. Troponin negative 1. Patient is currently receiving a combination of Rocephin and vancomycin for antibiotic coverage. T-max of 102.6F. Patient's blood pressure remains marginal, and is requiring norepinephrine titrations. For this reason the patient will be admitted to the intensive care unit once bed available for closer monitoring. On today's evaluation of 07/01/2022, the patient is being seen for a follow-up for septic shock related to gram-negative bacteria and this are not to be of a urinary source and the patient's infected with Tessalon pneumonia and the cultures are positive. The patient has been adequately resuscitated with IV fluids and the patient remains on pressors. This morning, she is on norepinephrine infusion and this is running at 0.3 mcg/kg/m. Unfortunately, she remains pressor dependent. IV fluids are in the form of a bicarb infusion which is running at the rate of 100 mL an hour. In terms of her antibiotic coverage, the patient was given Avycaz and the suggestion was done by pharmacy based on preliminary cultures and sensitivities. The patient's white cell count is down to 26. Hemoglobin is at 10.2. Platelet count is at 3:15. BUN is at 20 with a creatinine of 1.2 and sodium levels of 136. Calcium level is at 6.0. The patient was also seen by urology. There is a chronic right sided hydronephrosis. No intervention was recommended. The patient has a Krishnamurthy catheter in place. Objective - Vital Signs Vital signs: Vital Signs Temp 98.2 F 07/01/22 06:18 Pulse 99 07/01/22 13:00 Resp 17 07/01/22 13:00 BP 107/43 07/01/22 13:00 Pulse Ox 97 07/01/22 13:00 FiO2 Intake & Output 06/30/22 07/01/22 07/01/22 18:59 06:59 18:59 Intake Total 451.753 489.273 249.927 Output Total 600 760 900 Balance -148.247 -270.727 -650.073 Intake: Intake, IV Titration 451.753 489.273 249.927 Amount Norepinephrine 8 mg In 451.753 258.000 Sodium Chloride 0.9% 250 ml @ 0.03 MCG/KG/MIN 4. 476 mls/hr IV .Q24H [facility] Rx#:[id number] Norepinephrine 8 mg In 231.273 249.927 Sodium Chloride 0.9% 250 ml @ 0.03 MCG/KG/MIN 4. 476 mls/hr IV .Q24H [facility] Rx#:[id number] Output: Urine 600 760 900 Uretheral (Krishnamurthy) 600 - Exam GENERAL EXAM: Alert, 71-year-old white female, comfortable in no apparent distress. HEAD: Normocephalic and atraumatic EYES: Normal reaction of pupils, equal size. NOSE: Clear with pink turbinates. THROAT: No erythema or exudates. NECK: No masses, no JVD. CHEST: No chest wall deformity. LUNGS: Equal air entry with no crackles, wheeze, rhonchi or dullness. On 2 L nasal cannula. No conversational dyspnea or accessory muscle use.. CVS: S1 and S2 normal with no audible murmur, regular rhythm. No extra heart sounds ABDOMEN: No hepatosplenomegaly, active bowel sounds, no guarding or rigidity. SPINE: No scoliosis or deformity. Positive CVA tenderness on the right SKIN: No rashes CENTRAL NERVOUS SYSTEM: No focal deficits, tone is normal in all 4 extremities. EXTREMITIES: There is no peripheral edema, clubbing, or cyanosis. Peripheral pulses are intact. - Labs CBC & Chem 7: 07/01/22 06:18 07/01/22 06:18 Labs: Abnormal Lab Results - Last 24 Hours (Table) 06/30/22 07/01/22 07/01/22 Range/Units 19:53 06:18 06:18 WBC 26.0 H (3.8-10.6) k/uL RBC 3.68 L (3.80-5.40) m/uL Hgb 10.2 L (11.4-16.0) gm/dL MCHC 29.9 L (31.0-37.0) g/dL RDW 17.4 H (11.5-15.5) % Neutrophils # (Manual) 24.10 H (1.3-7.7) k/uL Lymphocytes # (Manual) 0.78 L (1.0-4.8) k/uL Monocytes # (Manual) 1.04 H (0-1.0) k/uL Sodium 136 L (137-145) mmol/L Chloride 112 H (98-107) mmol/L Carbon Dioxide 18 L (22-30) mmol/L BUN 20 H (7-17) mg/dL Creatinine 1.22 H (0.52-1.04) mg/dL Glucose 113 H (74-99) mg/dL POC Glucose (mg/dL) 148 H (70-110) mg/dL Calcium 6.0 L* (8.4-10.2) mg/dL Microbiology - Last 24 Hours (Table) 06/29/22 13:55 Blood Culture - Preliminary Blood 06/29/22 13:54 Urine Culture - Preliminary Urine,Voided Gram Neg Bacilli 06/29/22 13:55 Blood Culture Gram Stain - Preliminary Blood Blood Culture - Preliminary Klebsiella pneumoniae Assessment and Plan Assessment: Septic shock secondary to urinary tract infection. The patient has gram- negative bacteria in her urine and Klebsiella pneumoniae in her blood and the source of the septic shock is most likely an underlying urinary tract infection. The patient remains on pressors. Urosepsis, with history of frequent urinary tract infections in the past including ESBL producing organisms. Patient remains on norepinephrine Acute hypoxic respiratory failure currently on 2 L nasal cannula Non-anion gap hyperchloremic metabolic acidosis , improving Hyperkalemia, treated with insulin and dextrose, recovered Chronic kidney disease stage IIIa, creatinine is stable , Right hydronephrosis, possibly chronic in nature. Diabetes mellitus type 2 diet-controlled, Osteoarthritis Morbid obesity Plan: Neurology evaluated the patient and there is no plans to any acute interventions regarding the right kidney hydronephrosis. A repeat ultrasound be obtained wi thin next 24 hours to assess for ongoing hydronephrosis. Check serum cortisol level Check an echocardiogram The patient continues to be on pressors Continue Avycaz Continue bicarb infusion for another 24 hours The patient is complaining of some headache and she was given [place] Metabolic acidosis also improving. Creatinine is stable. She is still pressor dependent and the patient will be transferred to the ICU once rooms are available. Her white cell count is improving.
[2022-07-01] MEDS ORDERED: NOREPINEPHRINE 32 MG in SODIUM CHLORIDE 0.9% 218 ML IV ONE (14:52)
--- NOTE | 2022-07-01 15:58 | US ---
EXAMINATION TYPE: US renals and bladder DATE OF EXAM: 07/01/2022 COMPARISON: NONE CLINICAL INDICATION: Female, 71 years old with history of hydronephrosis; Hx of stones and hydro on t he right from previous exam done yesterday. Exam limited due to body habitus and unable to roll. EXAM MEASUREMENTS: Right Kidney: 7.4 x 3.9 x 3.4 cm Left Kidney: Unable to visualize due to body habitus and bowel gas. Right Kidney: Limited multiple echogenic areas seen. Cystic area not well seen due to bowel gas. Left Kidney: Unable to visualize due to body habitus and bowel gas. Bladder: Patient has cathter in. Urinary bladder is decompressed with Krishnamurthy catheter in place. Left kidney is not visualized due to overlying bowel gas. Poor visualization of the right kidney with multiple echogenic areas demonstrated. IMPRESSION: Severely limited examination due to patient body habitus and overlying bowel gas. Nonvisualization of left kidney. Multiple right renal calculi with poor visualization of the kidney. Questionable mild right hydronephrosis remaining. Krishnamurthy catheter within urinary bladder.
[2022-07-01] MEDS ORDERED: AMIODARONE 360 MG in DEXTROSE 5% IN WATER 200 ML IV ONE ×2 (16:03)
[2022-07-01] MEDS ORDERED: DEXTROSE 5% IN WATER 100 ML with AMIODARONE 150 MG IV ONE (16:03)
[2022-07-01] MEDS: ACETAMINOPHEN TAB 325 MG TAB PO PRN (16:33)
[2022-07-01] MEDS ORDERED: SODIUM CHLORIDE 0.9% 500 ML 500 ML IV ONE (18:00)
[2022-07-01] MEDS ORDERED: HEPARIN SODIUM 1,000 UN/ML (10ML VL) IV ONE (18:01)
[2022-07-01] MEDS ORDERED: HEPARIN SODIUM 1,000 UN/ML (10ML VL) IV PRN (18:01)
[2022-07-01] MEDS ORDERED: HEPARIN SOD,PORK IN 0.45% NACL 25,000 UNIT in 0.45% NACL 1 250ML.BAG IV SCH (18:15)
--- NOTE | 2022-07-01 18:19 | P.CRDCN ---
History of Present Illness Consult date: 07/01/22 History of present illness: History of Present Illness: The patient is a 71-year-old female who presented to the emergency room with urosepsis and has been in the emergency room on hold for the last 2 days, she presented in sinus mechanism and this afternoon went into atrial fibrillation with rapid ventricular response. She has been hypotensive requiring IV fluid in addition to vasopressors. She's feeling better overall, according to her her headache and abdominal discomfort are better. She is afebrile at this time and has been started on antibiotics. Her cardiac history is remarkable for a prior history of nonischemic cardiomyopathy, underwent cardiac catheterization in 2018 that showed no evidence of obstructive coronary disease. Her last echocardiogram available in 1999 1019 showed a normal systolic function. She has no prior history of atrial fibrillation. She has a history of diabetes and chronic kidney disease. She has not been seen in our office since 2019. Her blood pressure was stable earlier but she became hypotensive when she went into atrial fibrillation. Her urinary output has been good. She was evaluated by urology that recommended continuing treatment in view of her chronic right-sided hydronephrosis. Medications: Her medication at home included Lopressor 50 mg twice a day, Fosamax, Wellbutrin and Tessalon Perles. She has been off the beta trace since her presentation. Review of Systems: Respiratory: She had to dyspnea on exertion and mild cough GI: She had abdominal pain and nausea : She has a history of recurrent UTI Nervous System: No stroke or seizure. Physical Examination: 71-year-old female tired answering questions ,Blood pressure 95/70, Heart rate 140 Head: Normocephalic. Eyes: Sclerae nonicteric. Neck: Good carotid upstroke, no bruit, no jugular venous distention. Lungs: Clear to auscultation. Heart: Regular rate and rhythm, S1-S2, no S3, no rub. Systolic ejection murmur. Abdomen: Soft , mild lower abdomen discomfort, positive bowel sounds no organomegaly. Extremities: Trace to 1+ edema, intact distal pulses. Labs: WBC 26,000, yesterday 39.8. BUN 20, creatinine 1.22. Potassium 4.4. Troponin on admission less than 0.012 and NT proBNP 625. Chest x-ray with small pleural effusion. Renal ultrasound showed mild hydronephrosis with nonobstructing left renal stones EKG: On presentation sinus mechanism with no acute changes, with poor R-wave progression and left axis deviation. today atrial fibrillation with rapid ventricle response and nonspecific ST-T wave changes. Impression: 1. Septic shock from urinary tract infection and gram-negative bacteria 2. Atrial fibrillation new onset probably worsened by the sepsis 3. Chronic kidney disease 4. Prior history of nonischemic cardiomyopathy 5. History of hydronephrosis, chronic 6. Diet-controlled diabetes Plan: 1. Start patient on IV amiodarone 2. Restart beta trace 3. Obtain an echocardiogram with Doppler 4. Start IV heparin 5. Depending on her response further recommendations will be made, thank you for this consult we will follow with you. 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 COLONOSCOPY. LAP BAND THEN HAD BARIATRIC SURGERY;. bladder surgery may have been for a benign cyst but is not sure. 16 LBS ABD. TISSUE REMOVED Past Anesthesia/Blood Transfusion Reactions: No Reported Reaction Past Psychological History: Anxiety, Depression Smoking Status: Never smoker Past Alcohol Use History: None Reported Past Drug Use History: None Reported - Past Family History Mother Family Medical History: Diabetes Mellitus Additional Family Medical History / Comment(s): At [facility] with UTI. Father Family Medical History: CVA/TIA, Diabetes Mellitus Sister(s) Family Medical History: Deep Vein Thrombosis (DVT) Medications and Allergies Home Medications Medication Instructions Recorded Confirmed Type Oxybutynin Chloride 5 mg PO BID 05/15/18 06/29/22 History buPROPion XL [Wellbutrin XL] 150 mg PO DAILY 05/15/18 06/29/22 History Metoprolol Tartrate [Lopressor] 50 mg PO BID 02/28/20 06/29/22 History Albuterol Sulfate [Albuterol 2 puff PO RT-QID PRN 06/29/22 06/29/22 History Sulfate Hfa] Alendronate Sodium [Fosamax] 70 mg PO WE 06/29/22 06/29/22 History Benzonatate [Tessalon Perles] 100 mg PO TID PRN 06/29/22 06/29/22 History Allergies Allergy/AdvReac Type Severity Reaction Status Date / Time meperidine [From Demerol] AdvReac Nausea & Verified 06/29/22 13:30 Vomiting Penicillins AdvReac "FALLS Verified 06/29/22 15:14 ALOT"/Weakness Sulfa (Sulfonamide AdvReac Nausea & Verified 06/29/22 15:14 Antibiotics) Vomiting Physical Exam Vitals: Vital Signs Temp Pulse Resp BP Pulse Ox 07/01/22 17:00 158 H 19 86/66 98 07/01/22 16:30 152 H 22 98/43 98 07/01/22 16:00 163 H 20 76/51 98 07/01/22 15:30 22 134/62 97 07/01/22 15:00 104 H 17 129/65 97 07/01/22 14:30 93 15 113/65 99 07/01/22 14:00 80 16 133/52 99 07/01/22 13:30 100 17 127/54 97 07/01/22 13:00 99 17 107/43 97 07/01/22 12:30 96 17 108/53 97 07/01/22 12:00 108 H 20 128/50 98 07/01/22 11:30 112 H 21 121/54 97 07/01/22 11:00 109 H 20 120/53 97 07/01/22 10:30 101 H 18 111/50 99 07/01/22 10:00 93 19 116/43 99 07/01/22 09:30 93 19 113/31 99 07/01/22 09:00 98 18 128/50 98 07/01/22 08:30 87 17 109/46 97 07/01/22 08:20 96 07/01/22 08:11 110 H 96 07/01/22 07:30 113 H 12 102/78 96 07/01/22 07:00 103 H 18 107/60 96 07/01/22 06:46 101 H 101/41 07/01/22 06:20 96 07/01/22 06:18 98.2 F 114 H 20 113/46 97 07/01/22 05:28 101 H 20 106/55 99 07/01/22 04:41 102 H 117/50 07/01/22 04:31 106 H 119/50 97 07/01/22 03:48 102 H 107/44 07/01/22 03:36 98 103/48 07/01/22 03:25 104 H 120/48 07/01/22 03:03 98 122/49 07/01/22 02:38 110/50 07/01/22 02:26 93 20 101/59 07/01/22 02:06 100 115/47 07/01/22 01:17 90 101/46 07/01/22 01:05 97 100/52 07/01/22 00:56 93 20 101/53 97 07/01/22 00:45 98 21 109/45 98 07/01/22 00:30 100 20 101/45 96 07/01/22 00:26 98.2 F 07/01/22 00:24 95 20 105/42 96 07/01/22 00:15 96 20 104/44 96 07/01/22 00:00 113/41 96 06/30/22 23:45 23 115/52 97 06/30/22 23:30 94 22 114/64 97 06/30/22 23:15 98 12 122/37 96 06/30/22 23:00 95 22 131/53 97 06/30/22 22:45 98 22 126/69 97 06/30/22 22:30 20 95/47 96 06/30/22 22:18 98.1 F 101 H 22 136/60 96 06/30/22 22:15 110 H 130/67 97 06/30/22 20:19 84 145/56 06/30/22 20:08 80 20 135/56 98 06/30/22 20:01 78 119/61 98 06/30/22 19:59 81 20 72/40 97 06/30/22 18:53 112 H 18 140/51 98 Intake and Output 07/01/22 07/01/22 07/01/22 06:59 14:59 22:59 Intake Total 231.273 467.028 1.192 Output Total 900 Balance 231.273 -432.972 1.192 Intake: Intake, IV Titration 231.273 467.028 1.192 Amount Norepinephrine 32 mg In 1.192 Sodium Chloride 0.9% 218 ml @ 0.03 MCG/KG/MIN 1. 084 mls/hr IV .Q24H [facility] Rx#:[id number] Norepinephrine 8 mg In 231.273 467.028 Sodium Chloride 0.9% 250 ml @ 0.03 MCG/KG/MIN 4. 476 mls/hr IV .Q24H [facility] Rx#:[id number] Output: Urine 900 Results 07/01/22 06:18 07/01/22 06:18 CBC 07/01/22 Range/Units 06:18 WBC 26.0 H (3.8-10.6) k/uL RBC 3.68 L (3.80-5.40) m/uL Hgb 10.2 L (11.4-16.0) gm/dL Hct 34.0 (34.0-46.0) % Plt Count 315 (150-450) k/uL Comprehensive Metabolic Panel 07/01/22 Range/Units 06:18 Sodium 136 L (137-145) mmol/L Potassium 4.4 (3.5-5.1) mmol/L Chloride 112 H (98-107) mmol/L Carbon Dioxide 18 L (22-30) mmol/L BUN 20 H (7-17) mg/dL Creatinine 1.22 H (0.52-1.04) mg/dL Glucose 113 H (74-99) mg/dL Calcium 6.0 L* (8.4-10.2) mg/dL Current Medications Generic Name Dose Route Start Last Admin Trade Name Freq PRN Reason Stop Dose Admin Acetaminophen 325 mg 06/30/22 09:34 07/01/22 16:33 Acetaminophen Tab 325 Mg Tab PO 325 mg Q6HR PRN Administration Fever and/ or Pain Hydrocodone Bitart/Acetaminophen 1 each 06/30/22 09:34 07/01/22 11:57 Hydrocodone/Apap 5-325mg 1 Each Tab PO 1 each Q6HR PRN Administration Severe Pain (Scale 7 to 10) Albuterol/Ipratropium 3 ml 06/30/22 02:42 07/01/22 08:07 Ipratropium-Albuterol 3 Ml Neb INHALATION 3 ml RT-QID PRN Administration Shortness Of Breath Or Wheezing Albuterol/Ipratropium 3 ml 06/30/22 02:42 Ipratropium-Albuterol 3 Ml Neb INHALATION RT-Q2H PRN Shortness Of Breath Or Wheezing Famotidine 20 mg 06/29/22 21:00 06/30/22 20:59 Famotidine 20 Mg/2 Ml Vial IV 20 mg HS [facility] Administration Fentanyl Citrate 50 mcg 06/29/22 13:54 07/01/22 07:48 Fentanyl (Pf) 50 Mcg/Ml 2 Ml Amp IVP 50 mcg Q4HR PRN Administration Severe Pain (Scale 7 to 10) Heparin Sodium (Porcine) 5,000 unit 06/30/22 00:00 07/01/22 17:33 Heparin Sodium,Porcine/Pf 5,000 Unit/0.5 Ml Syringe SQ 5,000 unit Q8HR [facility] Administration Heparin Sodium (Porcine) 0 unit 07/01/22 18:01 Heparin Sodium 1,000 Un/Ml (10ml Vl) IV PER PROTOCOL PRN Low PTT Protocol Sodium Bicarbonate 150 ml/ 1,150 mls @ 100 mls/hr 06/30/22 11:45 07/01/22 10:55 Dextrose/Water IV 100 mls/hr .[id number] [facility] Administration Ceftazidime/Avibactam 1.25 gm/ 100 mls @ 50 mls/hr 06/30/22 13:00 07/01/22 13:51 Sodium Chloride IVPB 50 mls/hr Q8H [facility] Administration Norepinephrine Bitartrate 8 mg 258 mls @ 4.476 mls/hr 06/30/22 23:00 07/01/22 13:51 / Sodium Chloride IV 0.3 mcg/kg/min .Q24H [facility] 44.763 mls/hr Administration Protocol 0.03 MCG/KG/MIN Norepinephrine Bitartrate 32 250 mls @ 1.084 mls/hr 07/01/22 14:52 07/01/22 16:11 mg/ Sodium Chloride IV 07/02/22 14:51 0.11 mcg/kg/min .Q24H [facility] 3.976 mls/hr Titration Protocol 0.03 MCG/KG/MIN Amiodarone HCl 360 mg/ 200 mls @ 33.333 mls/hr 07/01/22 16:03 07/01/22 16:31 Dextrose/Water IV 07/01/22 22:02 1 mg/min .Q6H [facility] 33.333 mls/hr Administration Protocol 1 MG/MIN Sodium Chloride 500 mls @ 999 mls/hr 07/01/22 18:00 Saline 0.9% IV 07/01/22 18:30 .Q31M [facility] Heparin Sodium/Sodium Chloride 250 mls @ 9.253 mls/hr 07/01/22 18:15 25,000 unit/ Sodium Chloride IV .Q24H [facility] Protocol 12 UNITS/KG/HR Metoprolol Tartrate 25 mg 07/01/22 21:00 Metoprolol Tartrate 25 Mg Tab PO BID [facility] Ondansetron HCl 4 mg 06/30/22 09:38 Ondansetron 4 Mg/2 Ml Vial IVP Q6HR PRN Nausea And Vomiting Intake and Output 07/01/22 07/01/22 07/01/22 06:59 14:59 22:59 Intake Total 231.273 467.028 1.192 Output Total 900 Balance 231.273 -432.972 1.192 Intake: Intake, IV Titration 231.273 467.028 1.192 Amount Norepinephrine 32 mg In 1.192 Sodium Chloride 0.9% 218 ml @ 0.03 MCG/KG/MIN 1. 084 mls/hr IV .Q24H [facility] Rx#:[id number] Norepinephrine 8 mg In 231.273 467.028 Sodium Chloride 0.9% 250 ml @ 0.03 MCG/KG/MIN 4. 476 mls/hr IV .Q24H [facility] Rx#:[id number] Output: Urine 900 07/01/22 06:18 07/01/22 06:18
[2022-07-01] MEDS ORDERED: NALOXONE 0.4 MG/ML 1 ML VIAL IV PRN (18:32)
[2022-07-01 18:42] LABS: Glucose,Whole Blood 149 mg/dL (70-110)
[2022-07-01] MEDS ORDERED: AMIODARONE 450 MG in DEXTROSE 5% IN WATER 250 ML IV SCH ×2 (20:00)
[2022-07-01 20:06] LABS: INR 1.1 (<1.2); Partial Thromboplastin Time 28.5 sec (22.0-30.0); Prothrombin Time 11.5 sec (9.0-12.0)
[2022-07-01] MEDS: FAMOTIDINE 20 MG/2 ML VIAL IV SCH (20:21)
[2022-07-01 20:53] LABS: Anisocytosis Slight; Basophils % (A) 0 %; Eosinophils % (A) 0 %; HCT 29.4 % (34.0-46.0); HGB 9.2 gm/dL (11.4-16.0); Hypochromasia Marked; Lymphocytes % (A) 5 %; MCH 28.1 pg (25.0-35.0); MCHC 31.2 g/dL (31.0-37.0); MCV 89.9 fL (80.0-100.0); Mean Platelet Volume 8.3; Monocytes # (A) 0.5 k/uL (0-1.0); Monocytes % (A) 2 %; Neutrophils # (A) 18.5 k/uL (1.3-7.7); Neutrophils % (A) 92 %; Platelet Count 256 k/uL (150-450); RBC 3.27 m/uL (3.80-5.40); RDW 17.8 % (11.5-15.5); WBC 20.3 k/uL (3.8-10.6)
[2022-07-01] MEDS ORDERED: METOPROLOL TARTRATE 25 MG TAB PO SCH (21:00)
[2022-07-01 21:11] LABS: Magnesium 1.5 mg/dL (1.6-2.3)
[2022-07-01] MEDS ORDERED: Magnesium Replacement Protocol 1 EACH MISC MISCELLANE PRN (21:48)
[2022-07-01 22:07] LABS: T4, Free (Free Thyroxine) 2.36 ng/dL (0.78-2.19)
[2022-07-01] MEDS: MAGNESIUM SULFATE-D5W PMX 1 GM in DEXTROSE/WATER 1 100ML.BAG IVPB SCH ×2 (22:46→23:43)
[2022-07-02] MEDS: HYDROcodone/APAP 5-325MG 1 EACH TAB PO PRN ×4 (00:36→23:14)
[2022-07-02 04:44] LABS: Anisocytosis Slight; Basophils # (A) 0.1 k/uL (0-0.2); Basophils % (A) 0 %; Eosinophils # (A) 0.1 k/uL (0-0.7); Eosinophils % (A) 0 %; HCT 28.9 % (34.0-46.0); HGB 9.2 gm/dL (11.4-16.0); Hypochromasia Moderate; Lymphocytes # (A) 1.3 k/uL (1.0-4.8); Lymphocytes % (A) 6 %; MCH 28.4 pg (25.0-35.0); MCHC 31.7 g/dL (31.0-37.0); MCV 89.5 fL (80.0-100.0); Mean Platelet Volume 8.1; Monocytes # (A) 0.4 k/uL (0-1.0); Monocytes % (A) 2 %; Neutrophils # (A) 19.6 k/uL (1.3-7.7); Neutrophils % (A) 91 %; Platelet Count 269 k/uL (150-450); RBC 3.23 m/uL (3.80-5.40); RDW 17.9 % (11.5-15.5); WBC 21.6 k/uL (3.8-10.6)
[2022-07-02] MEDS: CEFTAZIDIME/AVIBACTAM 1.25 GM in SODIUM CHLORIDE 0.9% 100 ML IVPB SCH ×3 (04:47→20:47)
[2022-07-02 04:52] LABS: INR 1.2 (<1.2); Prothrombin Time 12.3 sec (9.0-12.0)
[2022-07-02 05:30] LABS: ALT 23 U/L (4-34); AST 32 U/L (14-36); African American GFR (CKD) 58 (>60 ml/min/1.73 sqM); Alkaline Phosphatase 171 U/L (38-126); Anion Gap 7 mmol/L; Bilirubin, Delta 0.1 mg/dL (0.0-0.2); Bilirubin,Unconjugated 0.1 mg/dL (0.0-1.1); Blood Urea Nitrogen 16 mg/dL (7-17); Carbon Dioxide 26 mmol/L (22-30); Chloride 102 mmol/L (98-107); Glucose 161 mg/dL (74-99); Non-African American GFR(CKD) 51 (>60 ml/min/1.73 sqM); Phosphorus 1.9 mg/dL (2.5-4.5); Potassium 3.7 mmol/L (3.5-5.1); Sodium 135 mmol/L (137-145); Total Bilirubin 0.2 mg/dL (0.2-1.3)
--- NOTE | 2022-07-02 07:53 | P.PN ---
Subjective Progress Note Date: 07/02/22 PROGRESS NOTE The patient is a 71-year-old female who presented to the emergency room with urosepsis and has been in the emergency room on hold for the last 2 days, she presented in sinus mechanism and this afternoon went into atrial fibrillation with rapid ventricular response. She has been hypotensive requiring IV fluid in addition to vasopressors. She's feeling better overall, according to her her headache and abdominal discomfort are better. She is afebrile at this time and has been started on antibiotics. Her cardiac history is remarkable for a prior history of nonischemic cardiomyopathy, underwent cardiac catheterization in 2017 that showed no evidence of obstructive coronary disease. Her last echocardiogram available in 1999 1019 showed a normal systolic function. She has no prior history of atrial fibrillation. She has a history of diabetes and chronic kidney disease. She has not been seen in our office since 2019. Her blood pressure was stable earlier but she became hypotensive when she went into atrial fibrillation. Her urinary output has been good. She was evaluated by urology that recommended continuing treatment in view of her chronic right-sided hydronephrosis. July 02: The patient continues to be in atrial fibrillation but her ventricular rate is better. Her blood pressure is under better control. Her urinary output has been stable. She is on a lower dose of norepinephrine. She continues to be on IV heparin and IV amiodarone. There is no evidence of ventricular ectopic activity. She feels tired but she denies any chest discomfort, dyspnea or dizzi ness. She denies any nausea. Medications: IV amiodarone, IV heparin, metoprolol 25 mg twice a day. PHYSICAL EXAMINATION: Blood pressure 114/80 heart rate 105 LUNGS: Clear to auscultation HEART: Irregular rate and rhythm, S1, S2. No S3. systolic ejection murmur ABDOMEN: Soft, nontender, no organomegaly EXTREMETIES: No edema LAB: WBC 21.6 hemoglobin 9.2. BUN 16, creatinine 1.1. TSH 0.36 with free T4 of 2.36. IMPRESSION: 1. Septic shock with gram-negative urine tract infection with chronic hy dronephrosis 2. Paroxysmal atrial fibrillation, new onset, rate under better control 3. Hypertension improving 4. History of hypertension in the past 5. Abnormal thyroid function tests PLAN: 1. Changed to oral amiodarone. Wean IV norepinephrine as tolerated 2. Start oral anticoagulation 3. Obtain an echocardiogram with Doppler 4. Depending on her progress further recommendations will be made Objective - Vital Signs Vital signs: Vital Signs Temp 97.4 F L 07/02/22 04:00 Pulse 101 H 07/02/22 07:00 Resp 17 07/02/22 07:00 BP 101/69 07/02/22 07:00 Pulse Ox 92 L 07/02/22 07:00 FiO2 Intake & Output 07/01/22 07/02/22 07/02/22 18:59 06:59 18:59 Intake Total 554.953 9793.829 120 Output Total 900 270 40 Balance -080.651 6535.829 80 Weight 86.1 kg Intake: IV 1520 120 0.9 220 20 Ceftazidime/Avibactam 1. 500 100 25 gm In Sodium Chloride 0.9% 100 ml @ 50 mls/hr IVPB Q8H [facility] Rx#: [id number] Dextrose 5% in Water 1, 300 000 ml @ 100 mls/hr IV . [id number] [facility] with Sodium Bicarb (1 Meq/ml) 150 ml Rx#:[id number] Magnesium Sulfate-D5w Pmx 500 1 gm In Dextrose/Water 1 100ml.bag @ 100 mls/hr IVPB Q1H [facility] Rx#: [id number] Intake, IV Titration 468.220 69.829 Amount Norepinephrine 32 mg In 1.192 69.829 Sodium Chloride 0.9% 218 ml @ 0.03 MCG/KG/MIN 1. 084 mls/hr IV .Q24H [facility] Rx#:[id number] Norepinephrine 8 mg In 467.028 Sodium Chloride 0.9% 250 ml @ 0.03 MCG/KG/MIN 4. 476 mls/hr IV .Q24H [facility] Rx#:[id number] Output: Urine 900 270 40 Other: Voiding Method Indwelling Catheter - Labs CBC & Chem 7: 07/02/22 04:30 07/02/22 04:30 Labs: Abnormal Lab Results - Last 24 Hours (Table) 07/01/22 07/01/22 07/01/22 Range/Units 06:18 18:40 20:30 WBC 26.0 H 20.3 H (3.8-10.6) k/uL RBC 3.68 L 3.27 L (3.80-5.40) m/uL Hgb 10.2 L 9.2 L (11.4-16.0) gm/dL Hct 29.4 L (34.0-46.0) % MCHC 29.9 L (31.0-37.0) g/dL RDW 17.4 H 17.8 H (11.5-15.5) % Neutrophils # 18.5 H (1.3-7.7) k/uL Neutrophils # (Manual) 24.10 H (1.3-7.7) k/uL Lymphocytes # (Manual) 0.78 L (1.0-4.8) k/uL Monocytes # (Manual) 1.04 H (0-1.0) k/uL PT (9.0-12.0) sec INR (<1.2) APTT (22.0-30.0) sec Sodium (137-145) mmol/L Creatinine (0.52-1.04) mg/dL Glucose (74-99) mg/dL POC Glucose (mg/dL) 149 H (70-110) mg/dL Calcium (8.4-10.2) mg/dL Ionized Calcium Jesus Manuel (4.5-5.3) mg/dL Phosphorus (2.5-4.5) mg/dL Magnesium (1.6-2.3) mg/dL Alkaline Phosphatase (38-126) U/L Total Protein (6.3-8.2) g/dL Albumin (3.5-5.0) g/dL TSH (0.465-4.680) mIU/L Free T4 (0.78-2.19) ng/dL 07/01/22 07/02/22 07/02/22 Range/Units 20:30 01:55 04:30 WBC (3.8-10.6) k/uL RBC (3.80-5.40) m/uL Hgb (11.4-16.0) gm/dL Hct (34.0-46.0) % MCHC (31.0-37.0) g/dL RDW (11.5-15.5) % Neutrophils # (1.3-7.7) k/uL Neutrophils # (Manual) (1.3-7.7) k/uL Lymphocytes # (Manual) (1.0-4.8) k/uL Monocytes # (Manual) (0-1.0) k/uL PT (9.0-12.0) sec INR (<1.2) APTT 68.5 H (22.0-30.0) sec Sodium 135 L (137-145) mmol/L Creatinine 1.10 H (0.52-1.04) mg/dL Glucose 161 H (74-99) mg/dL POC Glucose (mg/dL) (70-110) mg/dL Calcium 6.0 L* (8.4-10.2) mg/dL Ionized Calcium Jesus Manuel (4.5-5.3) mg/dL Phosphorus 1.9 L (2.5-4.5) mg/dL Magnesium 1.5 L (1.6-2.3) mg/dL Alkaline Phosphatase 171 H (38-126) U/L Total Protein 4.0 L (6.3-8.2) g/dL Albumin 2.0 L (3.5-5.0) g/dL TSH 0.361 L (0.465-4.680) mIU/L Free T4 2.36 H (0.78-2.19) ng/dL 07/02/22 07/02/22 07/02/22 Range/Units 04:30 04:30 06:00 WBC 21.6 H (3.8-10.6) k/uL RBC 3.23 L (3.80-5.40) m/uL Hgb 9.2 L (11.4-16.0) gm/dL Hct 28.9 L (34.0-46.0) % MCHC (31.0-37.0) g/dL RDW 17.9 H (11.5-15.5) % Neutrophils # 19.6 H (1.3-7.7) k/uL Neutrophils # (Manual) (1.3-7.7) k/uL Lymphocytes # (Manual) (1.0-4.8) k/uL Monocytes # (Manual) (0-1.0) k/uL PT 12.3 H (9.0-12.0) sec INR 1.2 H (<1.2) APTT (22.0-30.0) sec Sodium (137-145) mmol/L Creatinine (0.52-1.04) mg/dL Glucose (74-99) mg/dL POC Glucose (mg/dL) (70-110) mg/dL Calcium (8.4-10.2) mg/dL Ionized Calcium Jesus Manuel 3.8 L (4.5-5.3) mg/dL Phosphorus (2.5-4.5) mg/dL Magnesium (1.6-2.3) mg/dL Alkaline Phosphatase (38-126) U/L Total Protein (6.3-8.2) g/dL Albumin (3.5-5.0) g/dL TSH (0.465-4.680) mIU/L Free T4 (0.78-2.19) ng/dL Microbiology - Last 24 Hours (Table) 06/29/22 13:55 Blood Culture - Preliminary Blood 06/29/22 13:54 Urine Culture - Preliminary Urine,Voided Gram Neg Bacilli
--- NOTE | 2022-07-02 08:06 | P.PN ---
Subjective Progress Note Date: 07/02/22 The patient is in the hospital with a uti with sepsis SHe has chronic right hydro. SHe developed afib over nite Her wbc are coming down to 20K[26k]. She is feeling reasonably well. Her pain is under control. I've discussed the case with cardiology and they have her A. fib rate controlled and her vital signs are stable Objective - Vital Signs Vital signs: Vital Signs Temp 97.4 F L 07/02/22 04:00 Pulse 101 H 07/02/22 06:00 Resp 19 07/02/22 06:00 BP 111/64 07/02/22 06:00 Pulse Ox 91 L 07/02/22 06:00 FiO2 Intake & Output 07/01/22 07/01/22 07/02/22 06:59 18:59 06:59 Intake Total 489.273 306.114 5952.281 Output Total 760 900 270 Balance -270.727 -046.287 0761.281 Weight 86.1 kg Intake: IV 1520 0.9 220 Ceftazidime/Avibactam 1. 500 25 gm In Sodium Chloride 0.9% 100 ml @ 50 mls/hr IVPB Q8H [facility] Rx#: [id number] Dextrose 5% in Water 1, 300 000 ml @ 100 mls/hr IV . [id number] [facility] with Sodium Bicarb (1 Meq/ml) 150 ml Rx#:[id number] Magnesium Sulfate-D5w Pmx 500 1 gm In Dextrose/Water 1 100ml.bag @ 100 mls/hr IVPB Q1H [facility] Rx#: [id number] Intake, IV Titration 489.273 468.220 67.281 Amount Norepinephrine 32 mg In 1.192 67.281 Sodium Chloride 0.9% 218 ml @ 0.03 MCG/KG/MIN 1. 084 mls/hr IV .Q24H [facility] Rx#:[id number] Norepinephrine 8 mg In 258.000 Sodium Chloride 0.9% 250 ml @ 0.03 MCG/KG/MIN 4. 476 mls/hr IV .Q24H [facility] Rx#:[id number] Norepinephrine 8 mg In 231.273 467.028 Sodium Chloride 0.9% 250 ml @ 0.03 MCG/KG/MIN 4. 476 mls/hr IV .Q24H [facility] Rx#:[id number] Output: Urine 760 900 270 Other: Voiding Method Indwelling Catheter - Cardiovascular Rhythm: irregularly irregular - Gastrointestinal General gastrointestinal: Present: soft - Labs CBC & Chem 7: 07/02/22 04:30 07/02/22 04:30 Labs: Abnormal Lab Results - Last 24 Hours (Table) 07/01/22 07/01/22 07/01/22 Range/Units 06:18 06:18 18:40 WBC 26.0 H (3.8-10.6) k/uL RBC 3.68 L (3.80-5.40) m/uL Hgb 10.2 L (11.4-16.0) gm/dL Hct (34.0-46.0) % MCHC 29.9 L (31.0-37.0) g/dL RDW 17.4 H (11.5-15.5) % Neutrophils # (1.3-7.7) k/uL Neutrophils # (Manual) 24.10 H (1.3-7.7) k/uL Lymphocytes # (Manual) 0.78 L (1.0-4.8) k/uL Monocytes # (Manual) 1.04 H (0-1.0) k/uL PT (9.0-12.0) sec INR (<1.2) APTT (22.0-30.0) sec Sodium 136 L (137-145) mmol/L Chloride 112 H (98-107) mmol/L Carbon Dioxide 18 L (22-30) mmol/L BUN 20 H (7-17) mg/dL Creatinine 1.22 H (0.52-1.04) mg/dL Glucose 113 H (74-99) mg/dL POC Glucose (mg/dL) 149 H (70-110) mg/dL Calcium 6.0 L* (8.4-10.2) mg/dL Ionized Calcium Jesus Manuel (4.5-5.3) mg/dL Phosphorus (2.5-4.5) mg/dL Magnesium (1.6-2.3) mg/dL Alkaline Phosphatase (38-126) U/L Total Protein (6.3-8.2) g/dL Albumin (3.5-5.0) g/dL TSH (0.465-4.680) mIU/L Free T4 (0.78-2.19) ng/dL 07/01/22 07/01/22 07/02/22 Range/Units 20:30 20:30 01:55 WBC 20.3 H (3.8-10.6) k/uL RBC 3.27 L (3.80-5.40) m/uL Hgb 9.2 L (11.4-16.0) gm/dL Hct 29.4 L (34.0-46.0) % MCHC (31.0-37.0) g/dL RDW 17.8 H (11.5-15.5) % Neutrophils # 18.5 H (1.3-7.7) k/uL Neutrophils # (Manual) (1.3-7.7) k/uL Lymphocytes # (Manual) (1.0-4.8) k/uL Monocytes # (Manual) (0-1.0) k/uL PT (9.0-12.0) sec INR (<1.2) APTT 68.5 H (22.0-30.0) sec Sodium (137-145) mmol/L Chloride (98-107) mmol/L Carbon Dioxide (22-30) mmol/L BUN (7-17) mg/dL Creatinine (0.52-1.04) mg/dL Glucose (74-99) mg/dL POC Glucose (mg/dL) (70-110) mg/dL Calcium (8.4-10.2) mg/dL Ionized Calcium Jesus Manuel (4.5-5.3) mg/dL Phosphorus (2.5-4.5) mg/dL Magnesium 1.5 L (1.6-2.3) mg/dL Alkaline Phosphatase (38-126) U/L Total Protein (6.3-8.2) g/dL Albumin (3.5-5.0) g/dL TSH 0.361 L (0.465-4.680) mIU/L Free T4 2.36 H (0.78-2.19) ng/dL 07/02/22 07/02/22 07/02/22 Range/Units 04:30 04:30 04:30 WBC 21.6 H (3.8-10.6) k/uL RBC 3.23 L (3.80-5.40) m/uL Hgb 9.2 L (11.4-16.0) gm/dL Hct 28.9 L (34.0-46.0) % MCHC (31.0-37.0) g/dL RDW 17.9 H (11.5-15.5) % Neutrophils # 19.6 H (1.3-7.7) k/uL Neutrophils # (Manual) (1.3-7.7) k/uL Lymphocytes # (Manual) (1.0-4.8) k/uL Monocytes # (Manual) (0-1.0) k/uL PT 12.3 H (9.0-12.0) sec INR 1.2 H (<1.2) APTT (22.0-30.0) sec Sodium 135 L (137-145) mmol/L Chloride (98-107) mmol/L Carbon Dioxide (22-30) mmol/L BUN (7-17) mg/dL Creatinine 1.10 H (0.52-1.04) mg/dL Glucose 161 H (74-99) mg/dL POC Glucose (mg/dL) (70-110) mg/dL Calcium 6.0 L* (8.4-10.2) mg/dL Ionized Calcium Jesus Manuel (4.5-5.3) mg/dL Phosphorus 1.9 L (2.5-4.5) mg/dL Magnesium (1.6-2.3) mg/dL Alkaline Phosphatase 171 H (38-126) U/L Total Protein 4.0 L (6.3-8.2) g/dL Albumin 2.0 L (3.5-5.0) g/dL TSH (0.465-4.680) mIU/L Free T4 (0.78-2.19) ng/dL 07/02/22 Range/Units 06:00 WBC (3.8-10.6) k/uL RBC (3.80-5.40) m/uL Hgb (11.4-16.0) gm/dL Hct (34.0-46.0) % MCHC (31.0-37.0) g/dL RDW (11.5-15.5) % Neutrophils # (1.3-7.7) k/uL Neutrophils # (Manual) (1.3-7.7) k/uL Lymphocytes # (Manual) (1.0-4.8) k/uL Monocytes # (Manual) (0-1.0) k/uL PT (9.0-12.0) sec INR (<1.2) APTT (22.0-30.0) sec Sodium (137-145) mmol/L Chloride (98-107) mmol/L Carbon Dioxide (22-30) mmol/L BUN (7-17) mg/dL Creatinine (0.52-1.04) mg/dL Glucose (74-99) mg/dL POC Glucose (mg/dL) (70-110) mg/dL Calcium (8.4-10.2) mg/dL Ionized Calcium Jesus Manuel 3.8 L (4.5-5.3) mg/dL Phosphorus (2.5-4.5) mg/dL Magnesium (1.6-2.3) mg/dL Alkaline Phosphatase (38-126) U/L Total Protein (6.3-8.2) g/dL Albumin (3.5-5.0) g/dL TSH (0.465-4.680) mIU/L Free T4 (0.78-2.19) ng/dL Microbiology - Last 24 Hours (Table) 06/29/22 13:55 Blood Culture - Preliminary Blood 06/29/22 13:54 Urine Culture - Preliminary Urine,Voided Gram Neg Bacilli Assessment and Plan Assessment: The patient is in the hospital with a uti with sepsis SHe is on ab and slowly recouperating on ab. SHe has chronic right hydro due to a upj obstruction. SHe has bilateral non obstructing stones. SHe is growing klebsiella with senstivities pending. Atrial fibrillation, rate controlled (1) Hydronephrosis Current Visit: Yes Status: Acute Code(s): N13.30 - UNSPECIFIED HYDRONEPHROSIS SNOMED Code(s): 57937952 Plan: The patient has urinary tract infection with sepsis. She has chronic right hydro-due to UPJ obstruction. She is feeling better. Her white count is down. We will continue to monitor and treat this with antibiotics to try to avoid surgery in this patient.
[2022-07-02] MEDS: AMIODARONE 200 MG TAB PO SCH ×2 (08:32→20:47)
[2022-07-02] MEDS: METOPROLOL TARTRATE 50 MG TAB PO SCH ×2 (08:33→20:47)
[2022-07-02] MEDS: APIXABAN 5 MG TAB PO SCH ×2 (08:33→20:47)
--- NOTE | 2022-07-02 10:33 | P.PN ---
Subjective Progress Note Date: 07/02/22 I'm seeing this patient in new consultation today 06/30/2022 in the emergency room for urosepsis. Patient is a 71-year-old white female with past medical history of frequent UTIs with previous ESBL producing organisms in the past, kidney stones, diabetes mellitus, hypertension, osteoarthritis. Patient was previously seen by Dr. Boyd in the past for a small right pleural effusion. Patient presented to the emergency room yesterday afternoon for right flank and abdominal pain that started earlier that morning. Patient does admit some difficulty urinating and intermittent fever and chills. She denies any hematuria, nausea or vomiting, diarrhea, constipation, black or bloody stools. Urinalysis on admission was positive for nitrates and leukocytes. Urine culture is pending. Patient was originally admitted to the general medical floor, however, she became quite hypotensive despite being given a total of 1.5 L normal saline. She currently has her norepinephrine infusing at 0.03 mics per k ilogram per minute. There is normal saline infusing at 167 mL per hour. Blood pressure still marginal. CT of the abdomen and pelvis with contrast shows moderate right-sided hydronephrosis without hydroureter and perinephric stranding. Hydronephrosis might be chronic in nature, as it has been dem onstrated on previous imaging. Patient's CBC on arrival shows leukocytosis with a WBC count of 12.3, hemoglobin 11.1, hematocrit 36.8, platelets 339,000. Patient's BMP shows a sodium 136, potassium 6.1, chloride 112, serum CO2 17, BUN 20, creatinine 1.05, glucose 144. Patient's hyperkalemia was treated with insulin and dextrose. No recheck has been performed yet. Patient's lactic acid level is 1.6. Troponin negative 1. Patient is currently receiving a combination of Rocephin and vancomycin for antibiotic coverage. T-max of 102.6F. Patient's blood pressure remains marginal, and is requiring norepinephrine titrations. For this reason the patient will be admitted to the intensive care unit once bed available for closer monitoring. On today's evaluation of 07/01/2022, the patient is being seen for a follow-up for septic shock related to gram-negative bacteria and this are not to be of a urinary source and the patient's infected with Tessalon pneumonia and the cultures are positive. The patient has been adequately resuscitated with IV fluids and the patient remains on pressors. This morning, she is on norepinephrine infusion and this is running at 0.3 mcg/kg/m. Unfortunately, she remains pressor dependent. IV fluids are in the form of a bicarb infusion which is running at the rate of 100 mL an hour. In terms of her antibiotic coverage, the patient was given Avycaz and the suggestion was done by pharmacy based on preliminary cultures and sensitivities. The patient's white cell count is down to 26. Hemoglobin is at 10.2. Platelet count is at 3:15. BUN is at 20 with a creatinine of 1.2 and sodium levels of 136. Calcium level is at 6.0. The patient was also seen by urology. There is a chronic right sided hydronephrosis. No intervention was recommended. The patient has a Krishnamurthy catheter in place. on 07/02/2022, the patient is currently in the intensive care unit. She was admitted to the ICU because of septic shock. [facility] a [facility] secondary to UTI with Klebsiella pneumonia. The patient is currently on a bicarb infusion. Serum bicarb is normalized. She still on pressors. Norepinephrine is running at a lower rate of 0.07 mcg/kg/m. In terms of in terms of antibiotic coverage, the patient is currently on Avycaz at a dose of 1.25 g every 8 hours. Her underlying cardiac rhythm is in atrial fibrillation.the patient's overall is awake and communicating at this point in time. She is on oxygen at 2 L per minute nasal cannula. She is not having any significant respiratory distress. She remains in atrial fibrillation. She is on anti-cognition without liquids. She is also on oral amiodarone. Metoprolol is currently on hold based on underlying hypertension. Urology has seen the patient and there is no plan to do any intervention regarding this right kidney hydronephrosis. I think is reasonable to repeat ultrasound the reevaluate the presence of ongoing hydronephrosis Objective - Vital Signs Vital signs: Vital Signs Temp 97.7 F 07/02/22 08:00 Pulse 90 07/02/22 09:30 Resp 24 07/02/22 09:30 BP 80/51 07/02/22 09:30 Pulse Ox 88 L 07/02/22 09:30 FiO2 Intake & Output 04/20/23 04/21/23 04/21/23 18:59 06:59 18:59 Intake Total 354.398 6882.829 160 Output Total 900 270 115 Balance -930.076 4371.829 45 Weight 86.1 kg Intake: IV 1520 160 0.9 220 60 Ceftazidime/Avibactam 1. 500 100 25 gm In Sodium Chloride 0.9% 100 ml @ 50 mls/hr IVPB Q8H [facility] Rx#: [id number] Dextrose 5% in Water 1, 300 000 ml @ 100 mls/hr IV . [id number] [facility] with Sodium Bicarb (1 Meq/ml) 150 ml Rx#:[id number] Magnesium Sulfate-D5w Pmx 500 1 gm In Dextrose/Water 1 100ml.bag @ 100 mls/hr IVPB Q1H [facility] Rx#: [id number] Intake, IV Titration 468.220 69.829 Amount Norepinephrine 32 mg In 1.192 69.829 Sodium Chloride 0.9% 218 ml @ 0.03 MCG/KG/MIN 1. 084 mls/hr IV .Q24H [facility] Rx#:[id number] Norepinephrine 8 mg In 467.028 Sodium Chloride 0.9% 250 ml @ 0.03 MCG/KG/MIN 4. 476 mls/hr IV .Q24H [facility] Rx#:[id number] Output: Urine 900 270 115 Other: Voiding Method Indwelling Catheter Indwelling Catheter - Exam GENERAL EXAM: Alert, 71-year-old white female, comfortable in no apparent distress. HEAD: Normocephalic and atraumatic EYES: Normal reaction of pupils, equal size. NOSE: Clear with pink turbinates. THROAT: No erythema or exudates. NECK: No masses, no JVD. CHEST: No chest wall deformity. LUNGS: Equal air entry with no crackles, wheeze, rhonchi or dullness. On 2 L nasal cannula. No conversational dyspnea or accessory muscle use.. CVS: S1 and S2 normal with no audible murmur, regular rhythm. No extra heart sounds ABDOMEN: No hepatosplenomegaly, active bowel sounds, no guarding or rigidity. SPINE: No scoliosis or deformity. Positive CVA tenderness on the right SKIN: No rashes CENTRAL NERVOUS SYSTEM: No focal deficits, tone is normal in all 4 extremities. EXTREMITIES: There is no peripheral edema, clubbing, or cyanosis. Peripheral pulses are intact. - Labs CBC & Chem 7: 07/02/22 04:30 07/02/22 04:30 Labs: Abnormal Lab Results - Last 24 Hours (Table) 07/01/22 07/01/22 07/01/22 Range/Units 18:40 20:30 20:30 WBC 20.3 H (3.8-10.6) k/uL RBC 3.27 L (3.80-5.40) m/uL Hgb 9.2 L (11.4-16.0) gm/dL Hct 29.4 L (34.0-46.0) % RDW 17.8 H (11.5-15.5) % Neutrophils # 18.5 H (1.3-7.7) k/uL PT (9.0-12.0) sec INR (<1.2) APTT (22.0-30.0) sec Sodium (137-145) mmol/L Creatinine (0.52-1.04) mg/dL Glucose (74-99) mg/dL POC Glucose (mg/dL) 149 H (70-110) mg/dL Calcium (8.4-10.2) mg/dL Ionized Calcium Jesus Manuel (4.5-5.3) mg/dL Phosphorus (2.5-4.5) mg/dL Magnesium 1.5 L (1.6-2.3) mg/dL Alkaline Phosphatase (38-126) U/L Total Protein (6.3-8.2) g/dL Albumin (3.5-5.0) g/dL Vitamin D 25-Hydroxy (30.0-100.0) ng/mL TSH 0.361 L (0.465-4.680) mIU/L Free T4 2.36 H (0.78-2.19) ng/dL 07/02/22 07/02/22 07/02/22 Range/Units 01:55 04:30 04:30 WBC 21.6 H (3.8-10.6) k/uL RBC 3.23 L (3.80-5.40) m/uL Hgb 9.2 L (11.4-16.0) gm/dL Hct 28.9 L (34.0-46.0) % RDW 17.9 H (11.5-15.5) % Neutrophils # 19.6 H (1.3-7.7) k/uL PT (9.0-12.0) sec INR (<1.2) APTT 68.5 H (22.0-30.0) sec Sodium 135 L (137-145) mmol/L Creatinine 1.10 H (0.52-1.04) mg/dL Glucose 161 H (74-99) mg/dL POC Glucose (mg/dL) (70-110) mg/dL Calcium 6.0 L* (8.4-10.2) mg/dL Ionized Calcium Jesus Manuel (4.5-5.3) mg/dL Phosphorus 1.9 L (2.5-4.5) mg/dL Magnesium (1.6-2.3) mg/dL Alkaline Phosphatase 171 H (38-126) U/L Total Protein 4.0 L (6.3-8.2) g/dL Albumin 2.0 L (3.5-5.0) g/dL Vitamin D 25-Hydroxy <5.0 L (30.0-100.0) ng/mL TSH (0.465-4.680) mIU/L Free T4 (0.78-2.19) ng/dL 07/02/22 07/02/22 Range/Units 04:30 06:00 WBC (3.8-10.6) k/uL RBC (3.80-5.40) m/uL Hgb (11.4-16.0) gm/dL Hct (34.0-46.0) % RDW (11.5-15.5) % Neutrophils # (1.3-7.7) k/uL PT 12.3 H (9.0-12.0) sec INR 1.2 H (<1.2) APTT (22.0-30.0) sec Sodium (137-145) mmol/L Creatinine (0.52-1.04) mg/dL Glucose (74-99) mg/dL POC Glucose (mg/dL) (70-110) mg/dL Calcium (8.4-10.2) mg/dL Ionized Calcium Jesus Manuel 3.8 L (4.5-5.3) mg/dL Phosphorus (2.5-4.5) mg/dL Magnesium (1.6-2.3) mg/dL Alkaline Phosphatase (38-126) U/L Total Protein (6.3-8.2) g/dL Albumin (3.5-5.0) g/dL Vitamin D 25-Hydroxy (30.0-100.0) ng/mL TSH (0.465-4.680) mIU/L Free T4 (0.78-2.19) ng/dL Microbiology - Last 24 Hours (Table) 06/29/22 13:55 Blood Culture - Preliminary Blood 06/29/22 13:54 Urine Culture - Preliminary Urine,Voided Gram Neg Bacilli Assessment and Plan Assessment: Septic shock secondary to urinary tract infection. The patient has gram- negative bacteria in her urine and Klebsiella pneumoniae in her blood and the source of the septic shock is most likely an underlying urinary tract infection. The patient remains on pressors.the patient is currently on a lower dose of pressors and she is overall improving. We'll continue the IV fluids and switch the patient on normal saline and discontinue bicarb infusion. she is going to stay in the intensive care unit as long as she is pressors dependent. Urosepsis, with history of frequent urinary tract infections in the past including ESBL producing organisms. Patient remains on norepinephrine Acute hypoxic respiratory failure currently on 2 L nasal cannula Non-anion gap hyperchloremic metabolic acidosis , improving Hyperkalemia, treated with insulin and dextrose, recovered Chronic kidney disease stage IIIa, creatinine is stable, improving , Right hydronephrosis, possibly chronic in nature. Diabetes mellitus type 2 diet-controlled, Osteoarthritis Morbid obesity chronic atrial fib Plan: overall stable on 2 L of oxygen by nasal cannula Hypertension is most like related to septic shock Repeat the ultrasound the kidneys to evaluate the right kidney hydronephrosis Urology is on the case the patient had a normal cortisol level and there is no signs of any adrenal insufficiency Awaiting results of the echocardiogram that was done today The patient continues to be on pressors, gradually wean off the pressors Continue Avycaz continue amiodarone and anticoagulation with Eliquis, hold beta blockers of the patient's blood pressure normalizes. stop the bicarb infusion and put the patient on normal saline at the rate of 75 mL's an hour Metabolic acidosis also improving. Creatinine is stable. She is still pressor dependent and the patient will be transferred to the ICU once rooms are available. Her white cell count is improving.
[2022-07-02] MEDS: DEXTROSE 5% IN WATER 1,000 ML with SODIUM BICARB (1 MEQ/ML) 150 ML IV SCH (11:03)
[2022-07-02] MEDS: SODIUM CHLORIDE 0.9% 1,000 ML IV SCH (11:05)
[2022-07-02 11:41] LABS: Glucose,Whole Blood 135 mg/dL (70-110)
[2022-07-02] MEDS: CHOLECALCIFEROL 125 MCG (5000 IU) TABLET PO SCH (13:05)
--- NOTE | 2022-07-02 13:05 | P.PN ---
Subjective This is a pleasant 71 years old female with past medical history depression, osteoporosis, pleural effusion, hypertension Patient presents because of right lower quadrant abdominal pain 1-2 days' duration radiating to the back mild to moderate in severity associated with some nausea and generalized weakness. Patient denies chest pain or dyspnea. No change in mental status. No recent fall. She denies smoking alcohol or illicit drugs On admission she was hypotensive with blood pressure 80/52. Currently blood pressure 118/68. The blood pressure improved Also patient had a fever of 102.6 last night She has marked leukocytosis with 12.3 hemoglobin 11.1, platelet count normal. Electrolytes this morning are normal. Creatinine went up slightly 1.28 Glucose 78, calcium low 6.3. Bilirubin and liver enzymes are unremarkable. Urinalysis is suspicious for infection EKG: Sinus tachycardia at [address]-T changes, left axis gifty ation and poor progression of R-wave, similar to old EKG CT of the abdomen and pelvis with contrast, moderate right hydronephrosis with no hydroureter and perinephric stranding Chest x-ray reviewed by myself showing right pleural effusion and cardiomegaly Of vancomycin and normal saline. Also she started on Lopressor 07/01/2022 Patient awake and alert but slightly lethargic. She's been complaining of from mild headache and tremor in her hand but no overt weakness or numbness. She's feeling nausea she says some popsicles this morning that went real, she feels hungry and she was nausea medicine and see if she can start eating. No chest pain or dyspnea. No abdominal pain. No diarrhea. She remains on small dose of Levophed at 0.03 also she is on sodium bicarbonate 100 mL per hour and Blood culture from 2 days ago came back positive for Klebsiella. We are going to repeat blood culture today to confirm clearance 07/02/2022 Patient is awake and alert, she denies any specific complaints, she is somewhat generally weak but mentation is normal, no much respiratory symptoms, no much ur inary symptoms. Krishnamurthy catheter is in place. She still needs pressors and today she needs her dose of levophed at 0.07. She remains on ceftazidime and blood culture is growing Klebsiella pneumoniae. Urine culture showing gram-negative bacilli pending final results. She remains on ceftazidime. repeat blood culture from yesterday is pending. She is also on normal saline 75 mL/h Cardiology on the case for her A. fib, rate controlled currently she is on Eliquis 5 mg, amiodarone 400 mg and metoprolol 50 mg She has low calcium and phosphorus and high PTH consistent with vitamin D deficiency with level less than 5, replacement is a started. Follow-up renal ultrasound Objective - Vital Signs Vital signs: Vital Signs Temp 97.7 F 07/02/22 08:00 Pulse 101 H 07/02/22 10:30 Resp 19 07/02/22 10:30 BP 91/51 07/02/22 10:30 Pulse Ox 94 L 07/02/22 10:36 FiO2 Intake & Output 07/01/22 07/02/22 07/02/22 18:59 06:59 18:59 Intake Total 575.860 9717.829 580 Output Total 900 270 145 Balance -990.641 1497.829 435 Weight 86.1 kg Intake: IV 1520 580 0.9 220 80 Ceftazidime/Avibactam 1. 500 100 25 gm In Sodium Chloride 0.9% 100 ml @ 50 mls/hr IVPB Q8H [facility] Rx#: [id number] Dextrose 5% in Water 1, 300 400 000 ml @ 100 mls/hr IV . [id number] [facility] with Sodium Bicarb (1 Meq/ml) 150 ml Rx#:[id number] Magnesium Sulfate-D5w Pmx 500 1 gm In Dextrose/Water 1 100ml.bag @ 100 mls/hr IVPB Q1H [facility] Rx#: [id number] Intake, IV Titration 468.220 69.829 Amount Norepinephrine 32 mg In 1.192 69.829 Sodium Chloride 0.9% 218 ml @ 0.03 MCG/KG/MIN 1. 084 mls/hr IV .Q24H [facility] Rx#:[id number] Norepinephrine 8 mg In 467.028 Sodium Chloride 0.9% 250 ml @ 0.03 MCG/KG/MIN 4. 476 mls/hr IV .Q24H [facility] Rx#:[id number] Output: Urine 900 270 145 Other: Voiding Method Indwelling Catheter Indwelling Catheter - Exam -GENERAL: The patient is alert and oriented x3, not in any acute distress. obese. Lethargic HEENT: Pupils are round and equally reacting to light. EOMI. No scleral icterus. No conjunctival pallor. Normocephalic, atraumatic. No pharyngeal erythema. No thyromegaly. CARDIOVASCULAR: S1 and S2 present. No murmurs, rubs, or gallops. PULMONARY: Chest is clear to auscultation, no wheezing or crackles. -ABDOMEN: Soft, nontender, nondistended, normoactive bowel sounds. No palpable organomegaly. Krishnamurthy catheter in place MUSCULOSKELETAL: No joint swelling or deformity. EXTREMITIES: No cyanosis, clubbing, or pedal edema. NEUROLOGICAL: Gross neurological examination did not reveal any focal deficits. SKIN: No rashes. no petechiae. - Labs CBC & Chem 7: 07/02/22 04:30 07/02/22 04:30 Labs: Abnormal Lab Results - Last 24 Hours (Table) 07/01/22 07/01/22 07/01/22 Range/Units 18:40 20:30 20:30 WBC 20.3 H (3.8-10.6) k/uL RBC 3.27 L (3.80-5.40) m/uL Hgb 9.2 L (11.4-16.0) gm/dL Hct 29.4 L (34.0-46.0) % RDW 17.8 H (11.5-15.5) % Neutrophils # 18.5 H (1.3-7.7) k/uL PT (9.0-12.0) sec INR (<1.2) APTT (22.0-30.0) sec Sodium (137-145) mmol/L Creatinine (0.52-1.04) mg/dL Glucose (74-99) mg/dL POC Glucose (mg/dL) 149 H (70-110) mg/dL Calcium (8.4-10.2) mg/dL Ionized Calcium Jesus Manuel (4.5-5.3) mg/dL Phosphorus (2.5-4.5) mg/dL Magnesium 1.5 L (1.6-2.3) mg/dL Alkaline Phosphatase (38-126) U/L Total Protein (6.3-8.2) g/dL Albumin (3.5-5.0) g/dL Vitamin D 25-Hydroxy (30.0-100.0) ng/mL TSH 0.361 L (0.465-4.680) mIU/L Free T4 2.36 H (0.78-2.19) ng/dL 07/02/22 07/02/22 07/02/22 Range/Units 01:55 04:30 04:30 WBC 21.6 H (3.8-10.6) k/uL RBC 3.23 L (3.80-5.40) m/uL Hgb 9.2 L (11.4-16.0) gm/dL Hct 28.9 L (34.0-46.0) % RDW 17.9 H (11.5-15.5) % Neutrophils # 19.6 H (1.3-7.7) k/uL PT (9.0-12.0) sec INR (<1.2) APTT 68.5 H (22.0-30.0) sec Sodium 135 L (137-145) mmol/L Creatinine 1.10 H (0.52-1.04) mg/dL Glucose 161 H (74-99) mg/dL POC Glucose (mg/dL) (70-110) mg/dL Calcium 6.0 L* (8.4-10.2) mg/dL Ionized Calcium Jesus Manuel (4.5-5.3) mg/dL Phosphorus 1.9 L (2.5-4.5) mg/dL Magnesium (1.6-2.3) mg/dL Alkaline Phosphatase 171 H (38-126) U/L Total Protein 4.0 L (6.3-8.2) g/dL Albumin 2.0 L (3.5-5.0) g/dL Vitamin D 25-Hydroxy <5.0 L (30.0-100.0) ng/mL TSH (0.465-4.680) mIU/L Free T4 (0.78-2.19) ng/dL 07/02/22 07/02/22 Range/Units 04:30 06:00 WBC (3.8-10.6) k/uL RBC (3.80-5.40) m/uL Hgb (11.4-16.0) gm/dL Hct (34.0-46.0) % RDW (11.5-15.5) % Neutrophils # (1.3-7.7) k/uL PT 12.3 H (9.0-12.0) sec INR 1.2 H (<1.2) APTT (22.0-30.0) sec Sodium (137-145) mmol/L Creatinine (0.52-1.04) mg/dL Glucose (74-99) mg/dL POC Glucose (mg/dL) (70-110) mg/dL Calcium (8.4-10.2) mg/dL Ionized Calcium Jesus Manuel 3.8 L (4.5-5.3) mg/dL Phosphorus (2.5-4.5) mg/dL Magnesium (1.6-2.3) mg/dL Alkaline Phosphatase (38-126) U/L Total Protein (6.3-8.2) g/dL Albumin (3.5-5.0) g/dL Vitamin D 25-Hydroxy (30.0-100.0) ng/mL TSH (0.465-4.680) mIU/L Free T4 (0.78-2.19) ng/dL Microbiology - Last 24 Hours (Table) 06/29/22 13:55 Blood Culture - Preliminary Blood 06/29/22 13:54 Urine Culture - Preliminary Urine,Voided Gram Neg Bacilli Assessment and Plan Assessment: Septic shock Acute urinary tract infection Mild right hydronephrosis Klebsiella bacteremia History of depression History of osteoporosis History of hypertension, currently hypotensive chronic kidney disease stage III Chronic right pleural effusion Plan: Continued antibiotic, currently on ceftazidime Follow-up repeat blood culture Continue with pressors as per pulmonary/critical care team while consult Urologist consult on the case Follow-up culture results Continue with IV hydration Follow-up renal ultrasound Start vitamin D replacement therapy Labs and medication were reviewed.. Continue same treatment. Continue with symptomatic treatment. Resume home medication. Monitor labs and vitals. DVT and GI prophylaxis. Further recommendations as per clinical course of the patient DVT prophylaxis: Subcutaneous heparin GI Prophylaxis: Pepcid PT/OT: Pending, deferred Prognosis is guarded
--- NOTE | 2022-07-02 13:51 | US ---
EXAMINATION TYPE: US kidneys/renal and bladder DATE OF EXAM: 07/02/2022 COMPARISON: Multiple recent ultrasounds: Most recent comparison 07/01/2022 CLINICAL INDICATION: Female, 71 years old with history of Hydronephrosis follow up; Right hydro follo w up EXAM MEASUREMENTS: Right Kidney: 9.1 x 4.2 x 3.8 cm Left Kidney: 8.7 x 4.2 x 4.2 cm Immobile, obese pt in ICU< difficult exam Right Kidney: Mild hydro Left Kidney: No evidence of hydro, limited views Bladder: Pt has cath in place IMPRESSION: 1. Mild prominence of the right renal collecting system. No obstructing etiology by ultrasound is angus dent, stable from prior.
[2022-07-02] MEDS: ACETAMINOPHEN TAB 325 MG TAB PO PRN (14:33)
[2022-07-02 16:37] LABS: Glucose,Whole Blood 115 mg/dL (70-110)
[2022-07-02] MEDS: NOREPINEPHRINE 32 MG in SODIUM CHLORIDE 0.9% 218 ML IV SCH (17:21)
--- NOTE | 2022-07-02 19:31 | CA ---
Transthoracic Echo Report Name: Cheo Alamo Age: 71 Gender: F : 1950 Exam Date: 07/02/2022 07:39 Exam Location: [facility] Ht (in): 61 Wt (lb): 189 Ordering Physician: Russell Brock Attending/Referring Phys: Assistant Designer Adi Martines RDCS Procedure CPT: Indications: check LV function Cardiac Hx: Severe UTI; DM; HTN; COPD; Obesity; DM; Technical Quality: Poor Contrast 1: Total Dose (mL): Contrast 2: Total Dose (mL): MEASUREMENTS (Male / Female) Normal Values 2D ECHO LV Diastolic Diameter PLAX 3.0 cm 4.2 - 5.9 / 3.9 - 5.3 cm LV Systolic Diameter PLAX 2.3 cm LV Fractional Shortening PLAX 25.4 % IVS Diastolic Thickness 1.6 cm 0.6 - 1.0 / 0.6 - 0.9 cm IVS Systolic Thickness 1.9 cm LVPW Diastolic Thickness 1.4 cm 0.6 - 1.0 / 0.6 - 0.9 cm LVPW Systolic Thickness 1.6 cm LV Relative Wall Thickness 1.0 LVOT Diameter 2.0 cm Aortic Root Diameter 3.0 cm LA Systolic Diameter LX 3.3 cm 3.0 - 4.0 / 2.7 - 3.8 cm LA Ao Ratio 1.1 LV Diastolic Volume MOD 4C 84.2 cm??? LV Systolic Volume MOD 4C 44.3 cm??? LV Ejection Fraction MOD 4C 47.4 % LV Stroke Volume MOD 4C 39.9 cm??? LV Diastolic Length 4C 7.0 cm LV Systolic Length 4C 5.5 cm LA Area 4C View 12.5 cm??? <= 20 cm??? Ascending Aorta Diameter 3.2 cm M-MODE Aortic Root Diameter MM 3.0 cm LA Systolic Diameter MM 2.7 cm LA Ao Ratio MM 0.9 AV Cusp Separation MM 1.8 cm DOPPLER AV Peak Velocity 73.6 cm/s AV Peak Gradient 2.2 mmHg MV E' Velocity 6.3 cm/s TR Peak Velocity 312.3 cm/s TR Peak Gradient 39.0 mmHg Right Ventricular Systolic Press 49.0 mmHg PV Peak Velocity 88.7 cm/s PV Peak Gradient 3.2 mmHg FINDINGS Left Ventricle Left ventricular ejection fraction is estimated at 45-50 %. Hyperdynamic left ventricular systolic function. Right Ventricle Mild right ventricular dilatation. RVSP- 49 mm Hg. Right Atrium Mild right atrial dilatation. Left Atrium Normal left atrial size. Mitral Valve Mitral valve thickened. Aortic Valve Trileaflet aortic valve. Diffuse thickening (sclerosis) of the aortic valve cusps without reduced excursion. Tricuspid Valve [id number] tricuspid regurgitation. Pulmonic Valve Pulmonic valve not well visualized. Pericardium Normal pericardium. No pericardial effusion. Aorta Aortic root and proximal ascending aorta not well visualized. CONCLUSIONS Right ventricular enlargement with pressure overload and a somewhat flattened interventricular septum Overall LV function is actually preserved Elevated RVSP Previewed by: Dr. Sam Solares MD (Electronically Signed) Final Date: 02 July 2022 19:30
[2022-07-02] MEDS: FAMOTIDINE 20 MG/2 ML VIAL IV SCH (20:48)
[2022-07-03] MEDS: SODIUM CHLORIDE 0.9% 1,000 ML IV SCH ×2 (01:48→10:00)
[2022-07-03] MEDS: HYDROcodone/APAP 5-325MG 1 EACH TAB PO PRN ×2 (05:01→20:53)
[2022-07-03] MEDS: CEFTAZIDIME/AVIBACTAM 1.25 GM in SODIUM CHLORIDE 0.9% 100 ML IVPB SCH ×3 (05:02→20:37)
[2022-07-03 05:36] LABS: Anisocytosis Slight; Basophils % (A) 0 %; Eosinophils # (A) 0.1 k/uL (0-0.7); Eosinophils % (A) 1 %; HGB 8.6 gm/dL (11.4-16.0); Hypochromasia Moderate; Lymphocytes # (A) 1.1 k/uL (1.0-4.8); Lymphocytes % (A) 12 %; MCHC 30.8 g/dL (31.0-37.0); MCV 90.8 fL (80.0-100.0); Mean Platelet Volume 8.5; Monocytes # (A) 0.4 k/uL (0-1.0); Monocytes % (A) 4 %; Neutrophils # (A) 7.4 k/uL (1.3-7.7); Neutrophils % (A) 81 %; Platelet Count 202 k/uL (150-450); RBC 3.08 m/uL (3.80-5.40); RDW 17.8 % (11.5-15.5); WBC 9.2 k/uL (3.8-10.6)
[2022-07-03 05:42] LABS: Potassium 3.6 mmol/L (3.5-5.1)
[2022-07-03 05:49] LABS: Calcium 5.9 mg/dL (8.4-10.2)
[2022-07-03] MEDS ORDERED: Potassium Replacement Protocol 1 EACH MISC MISCELLANE PRN (05:57)
[2022-07-03] MEDS: POTASSIUM CHLORIDE 10 MEQ in WATER FOR INJECTION 1 100ML.BAG IVPB SCH ×2 (06:13→08:40)
[2022-07-03] MEDS ORDERED: FUROSEMIDE 10 MG/ML 4 ML VIAL IV STA (08:52)
--- NOTE | 2022-07-03 08:52 | P.PN ---
Subjective Progress Note Date: 07/03/22 PROGRESS NOTE The patient is a 71-year-old female who presented to the emergency room with urosepsis and has been in the emergency room on hold for the last 2 days, she presented in sinus mechanism and this afternoon went into atrial fibrillation with rapid ventricular response. She has been hypotensive requiring IV fluid in addition to vasopressors. She's feeling better overall, according to her her headache and abdominal discomfort are better. She is afebrile at this time and has been started on antibiotics. Her cardiac history is remarkable for a prior history of nonischemic cardiomyopathy, underwent cardiac catheterization in 2017 that showed no evidence of obstructive coronary disease. Her last echocardiogram available in 1999 1019 showed a normal systolic function. She has no prior history of atrial fibrillation. She has a history of diabetes and chronic kidney disease. She has not been seen in our office since 2019. Her blood pressure was stable earlier but she became hypotensive when she went into atrial fibrillation. Her urinary output has been good. She was evaluated by urology that recommended continuing treatment in view of her chronic right-sided hydronephrosis. July 02: The patient continues to be in atrial fibrillation but her ventricular rate is better. Her blood pressure is under better control. Her urinary output has been stable. She is on a lower dose of norepinephrine. She continues to be on IV heparin and IV amiodarone. There is no evidence of ventricular ectopic activity. She feels tired but she denies any chest discomfort, dyspnea or dizzi ness. She denies any nausea. July 03: The patient feels better today, she continues to be in atrial fibrillation with controlled ventricular response. She denies any chest discomfort, dizziness or palpitations. Her blood pressures under good control. She denies any nausea or vomiting. Her appetite is better. She has no cough or fever. Her echocardiogram showed an ejection fraction of 45-50% with mild to moderate tricuspid regurgitation and moderate pulmonary hypertension. Medications: Amiodarone 400 mg twice a day, Lopressor 50 mg twice a day,Eliquis 5 mg twice a day PHYSICAL EXAMINATION: Blood pressure 100/70 heart rate 80 LUNGS: Clear to auscultation HEART: Irregular rate and rhythm, S1, S2. No S3. systolic ejection murmur ABDOMEN: Soft, nontender, no organomegaly EXTREMETIES: +1 edema LAB: WBC 9.2 hemoglobin 8.6. BUN 14, creatinine 1.14. IMPRESSION: 1. Septic shock with gram-negative urine tract infection with chronic hydronephrosis 2. Paroxysmal atrial fibrillation, new onset, rate under better control 3. Hypotension, related to sepsis, resolved 4. History of hypertension in the past 5. Abnormal thyroid function tests 6. Mild cardiomyopathy PLAN: 1. IV Lasix 1 2. Increase physical activity 3. Continue on present treatment 4. Follow renal functions 5. If patient remains in atrial fibrillation after sepsis resolves consider cardioversion Objective - Vital Signs Vital signs: Vital Signs Temp 97.7 F 07/03/22 04:00 Pulse 85 07/03/22 06:30 Resp 13 07/03/22 06:30 BP 99/73 07/03/22 06:30 Pulse Ox 99 07/03/22 06:30 FiO2 Intake & Output 07/02/22 07/03/22 07/03/22 18:59 06:59 18:59 Intake Total 2738.511 1031.295 75 Output Total 420 280 20 Balance 2318.511 751.295 55 Weight 88.1 kg Intake: IV 1535 1025 75 0.9 935 825 75 Ceftazidime/Avibactam 1. 200 200 25 gm In Sodium Chloride 0.9% 100 ml @ 50 mls/hr IVPB Q8H [facility] Rx#: [id number] Dextrose 5% in Water 1, 400 000 ml @ 100 mls/hr IV . [id number] [facility] with Sodium Bicarb (1 Meq/ml) 150 ml Rx#:[id number] Intake, IV Titration 3.511 6.295 Amount Norepinephrine 32 mg In 3.511 6.295 Sodium Chloride 0.9% 218 ml @ 0.03 MCG/KG/MIN 1. 211 mls/hr IV .Q24H [facility] Rx#:[id number] Oral 1200 Output: Urine 420 280 20 Other: Voiding Method Indwelling Catheter Indwelling Catheter - Labs CBC & Chem 7: 07/03/22 04:30 07/03/22 04:30 Labs: Abnormal Lab Results - Last 24 Hours (Table) 07/02/22 07/02/22 07/02/22 Range/Units 04:30 04:30 11:40 RBC (3.80-5.40) m/uL Hgb (11.4-16.0) gm/dL Hct (34.0-46.0) % MCHC (31.0-37.0) g/dL RDW (11.5-15.5) % Sodium (137-145) mmol/L Creatinine (0.52-1.04) mg/dL POC Glucose (mg/dL) 135 H (70-110) mg/dL Calcium (8.4-10.2) mg/dL Ionized Calcium Jesus Manuel (4.5-5.3) mg/dL Vitamin D 25-Hydroxy <5.0 L (30.0-100.0) ng/mL PTH Intact 463.0 H (14.0-72.0) pg/mL 07/02/22 07/03/22 07/03/22 Range/Units 16:35 04:30 04:30 RBC 3.08 L (3.80-5.40) m/uL Hgb 8.6 L (11.4-16.0) gm/dL Hct 28.0 L (34.0-46.0) % MCHC 30.8 L (31.0-37.0) g/dL RDW 17.8 H (11.5-15.5) % Sodium 135 L (137-145) mmol/L Creatinine 1.14 H (0.52-1.04) mg/dL POC Glucose (mg/dL) 115 H (70-110) mg/dL Calcium 5.9 L* (8.4-10.2) mg/dL Ionized Calcium Jesus Manuel (4.5-5.3) mg/dL Vitamin D 25-Hydroxy (30.0-100.0) ng/mL PTH Intact (14.0-72.0) pg/mL 07/03/22 Range/Units 06:20 RBC (3.80-5.40) m/uL Hgb (11.4-16.0) gm/dL Hct (34.0-46.0) % MCHC (31.0-37.0) g/dL RDW (11.5-15.5) % Sodium (137-145) mmol/L Creatinine (0.52-1.04) mg/dL POC Glucose (mg/dL) (70-110) mg/dL Calcium (8.4-10.2) mg/dL Ionized Calcium Jesus Manuel 3.9 L (4.5-5.3) mg/dL Vitamin D 25-Hydroxy (30.0-100.0) ng/mL PTH Intact (14.0-72.0) pg/mL Microbiology - Last 24 Hours (Table) 06/29/22 13:55 Blood Culture - Preliminary Blood
[2022-07-03] MEDS: APIXABAN 5 MG TAB PO SCH ×2 (08:57→20:38)
[2022-07-03] MEDS: AMIODARONE 200 MG TAB PO SCH ×2 (08:57→20:38)
[2022-07-03] MEDS: CHOLECALCIFEROL 125 MCG (5000 IU) TABLET PO SCH (08:58)
[2022-07-03] MEDS ORDERED: CALCIUM CARBONATE 500 MG CHEWABLE PO PRN (09:02)
--- NOTE | 2022-07-03 09:54 | P.PN ---
Subjective Progress Note Date: 07/03/22 As in the hospital with urinary tract infection with sepsis. She is not having any complaints today and feels much better Objective - Vital Signs Vital signs: Vital Signs Temp 97.7 F 07/03/22 04:00 Pulse 85 07/03/22 06:30 Resp 13 07/03/22 06:30 BP 99/73 07/03/22 06:30 Pulse Ox 96 07/03/22 09:18 FiO2 Intake & Output 07/02/22 07/03/22 07/03/22 18:59 06:59 18:59 Intake Total 2738.511 1031.295 525 Output Total 420 280 75 Balance 2318.511 751.295 450 Weight 88.1 kg Intake: IV 1535 1025 225 0.9 935 825 225 Ceftazidime/Avibactam 1. 200 200 25 gm In Sodium Chloride 0.9% 100 ml @ 50 mls/hr IVPB Q8H [facility] Rx#: [id number] Dextrose 5% in Water 1, 400 000 ml @ 100 mls/hr IV . [id number] [facility] with Sodium Bicarb (1 Meq/ml) 150 ml Rx#:[id number] Intake, IV Titration 3.511 6.295 200 Amount Norepinephrine 32 mg In 3.511 6.295 Sodium Chloride 0.9% 218 ml @ 0.03 MCG/KG/MIN 1. 211 mls/hr IV .Q24H [facility] Rx#:[id number] Potassium Chloride 10 meq 200 In Water For Injection 1 100ml.bag @ 100 mls/hr IVPB Q1H [facility] Rx#: [id number] Oral 1200 100 Output: Urine 420 280 75 Other: Voiding Method Indwelling Catheter Indwelling Catheter Indwelling Catheter - Labs CBC & Chem 7: 07/03/22 04:30 07/03/22 04:30 Labs: Abnormal Lab Results - Last 24 Hours (Table) 07/02/22 07/02/22 07/02/22 Range/Units 04:30 11:40 16:35 RBC (3.80-5.40) m/uL Hgb (11.4-16.0) gm/dL Hct (34.0-46.0) % MCHC (31.0-37.0) g/dL RDW (11.5-15.5) % Sodium (137-145) mmol/L Creatinine (0.52-1.04) mg/dL POC Glucose (mg/dL) 135 H 115 H (70-110) mg/dL Calcium (8.4-10.2) mg/dL Ionized Calcium Jesus Manuel (4.5-5.3) mg/dL PTH Intact 463.0 H (14.0-72.0) pg/mL 07/03/22 07/03/22 07/03/22 Range/Units 04:30 04:30 06:20 RBC 3.08 L (3.80-5.40) m/uL Hgb 8.6 L (11.4-16.0) gm/dL Hct 28.0 L (34.0-46.0) % MCHC 30.8 L (31.0-37.0) g/dL RDW 17.8 H (11.5-15.5) % Sodium 135 L (137-145) mmol/L Creatinine 1.14 H (0.52-1.04) mg/dL POC Glucose (mg/dL) (70-110) mg/dL Calcium 5.9 L* (8.4-10.2) mg/dL Ionized Calcium Jesus Manuel 3.9 L (4.5-5.3) mg/dL PTH Intact (14.0-72.0) pg/mL Microbiology - Last 24 Hours (Table) 07/01/22 11:28 Blood Culture - Preliminary Blood 06/29/22 13:55 Blood Culture - Preliminary Blood Assessment and Plan Assessment: Urinary tract infection with sepsis improving white count down to 9000. Urine clear. (1) Hydronephrosis Current Visit: Yes Status: Acute Code(s): N13.30 - UNSPECIFIED HYDRONEPHROSIS SNOMED Code(s): 77714478 Plan: From urologic standpoint the right kidney which shows chronic hydronephrosis does not have to be drained. She would obviously need several weeks of antibiotics to completely treat the pyelonephritis. From a urologic standpoint she is stable.
--- NOTE | 2022-07-03 09:55 | P.PN ---
Subjective Progress Note Date: 07/03/22 I'm seeing this patient in new consultation today 06/30/2022 in the emergency room for urosepsis. Patient is a 71-year-old white female with past medical history of frequent UTIs with previous ESBL producing organisms in the past, kidney stones, diabetes mellitus, hypertension, osteoarthritis. Patient was previously seen by Dr. Boyd in the past for a small right pleural effusion. Patient presented to the emergency room yesterday afternoon for right flank and abdominal pain that started earlier that morning. Patient does admit some difficulty urinating and intermittent fever and chills. She denies any hematuria, nausea or vomiting, diarrhea, constipation, black or bloody stools. Urinalysis on admission was positive for nitrates and leukocytes. Urine culture is pending. Patient was originally admitted to the general medical floor, however, she became quite hypotensive despite being given a total of 1.5 L normal saline. She currently has her norepinephrine infusing at 0.03 mics per k ilogram per minute. There is normal saline infusing at 167 mL per hour. Blood pressure still marginal. CT of the abdomen and pelvis with contrast shows moderate right-sided hydronephrosis without hydroureter and perinephric stranding. Hydronephrosis might be chronic in nature, as it has been dem onstrated on previous imaging. Patient's CBC on arrival shows leukocytosis with a WBC count of 12.3, hemoglobin 11.1, hematocrit 36.8, platelets 339,000. Patient's BMP shows a sodium 136, potassium 6.1, chloride 112, serum CO2 17, BUN 20, creatinine 1.05, glucose 144. Patient's hyperkalemia was treated with insulin and dextrose. No recheck has been performed yet. Patient's lactic acid level is 1.6. Troponin negative 1. Patient is currently receiving a combination of Rocephin and vancomycin for antibiotic coverage. T-max of 102.6F. Patient's blood pressure remains marginal, and is requiring norepinephrine titrations. For this reason the patient will be admitted to the intensive care unit once bed available for closer monitoring. On today's evaluation of 07/01/2022, the patient is being seen for a follow-up for septic shock related to gram-negative bacteria and this are not to be of a urinary source and the patient's infected with Tessalon pneumonia and the cultures are positive. The patient has been adequately resuscitated with IV fluids and the patient remains on pressors. This morning, she is on norepinephrine infusion and this is running at 0.3 mcg/kg/m. Unfortunately, she remains pressor dependent. IV fluids are in the form of a bicarb infusion which is running at the rate of 100 mL an hour. In terms of her antibiotic coverage, the patient was given Avycaz and the suggestion was done by pharmacy based on preliminary cultures and sensitivities. The patient's white cell count is down to 26. Hemoglobin is at 10.2. Platelet count is at 3:15. BUN is at 20 with a creatinine of 1.2 and sodium levels of 136. Calcium level is at 6.0. The patient was also seen by urology. There is a chronic right sided hydronephrosis. No intervention was recommended. The patient has a Krishnamurthy catheter in place. on 07/02/2022, the patient is currently in the intensive care unit. She was admitted to the ICU because of septic shock. His of a [facility] secondary to UTI with Klebsiella pneumonia. The patient is currently on a bicarb infusion. Serum bicarb is normalized. She still on pressors. Norepinephrine is running at a lower rate of 0.07 mcg/kg/m. In terms of in terms of antibiotic coverage, the patient is currently on Avycaz at a dose of 1.25 g every 8 hours. Her underlying cardiac rhythm is in atrial fibrillation.the patient's overall is awake and communicating at this point in time. She is on oxygen at 2 L per minute nasal cannula. She is not having any significant respiratory distress. She remains in atrial fibrillation. She is on anti-cognition without liquids. She is also on oral amiodarone. Metoprolol is currently on hold based on underlying hypertension. Urology has seen the patient and there is no plan to do any intervention regarding this right kidney hydronephrosis. I think is reasonable to repeat ultrasound the reevaluate the presence of ongoing hydronephrosis 07/03/2022, the patient is off pressors. The patient has been off pressors since 2300 last night. Cardiac rhythm remained nature fibrillation with a controlled rate.. She is on the same antibiotic coverage. Breathing is comfortable and the patient remains on 2 L of oxygen nasal cannula. She remains on oral amiodarone. She was also started on metoprolol 50 mg and the patient was given a dose of Lasix by cardiology at a dose of 40 mg IV 1. On her blood work, the WBC count of 9.2 with a hemoglobin of 8.6 and a platelet count of 202. BUN is at 40 with a creatinine of 1.1 and his sodium level is at 135. Calcium level is low at 5.9. White cell count is improved and the white cell count has dropped significantly from as high as 39 down to 9.2. Objective - Vital Signs Vital signs: Vital Signs Temp 97.7 F 07/03/22 04:00 Pulse 85 07/03/22 06:30 Resp 13 07/03/22 06:30 BP 99/73 07/03/22 06:30 Pulse Ox 96 07/03/22 09:18 FiO2 Intake & Output 07/02/22 07/03/22 07/03/22 18:59 06:59 18:59 Intake Total 2738.511 1031.295 525 Output Total 420 280 75 Balance 2318.511 751.295 450 Weight 88.1 kg Intake: IV 1535 1025 225 0.9 935 825 225 Ceftazidime/Avibactam 1. 200 200 25 gm In Sodium Chloride 0.9% 100 ml @ 50 mls/hr IVPB Q8H ALBERTO Rx#: [id number] Dextrose 5% in Water 1, 400 000 ml @ 100 mls/hr IV . [id number] ALBERTO with Sodium Bicarb (1 Meq/ml) 150 ml Rx#:[id number] Intake, IV Titration 3.511 6.295 200 Amount Norepinephrine 32 mg In 3.511 6.295 Sodium Chloride 0.9% 218 ml @ 0.03 MCG/KG/MIN 1. 211 mls/hr IV .Q24H ALBERTO Rx#:[id number] Potassium Chloride 10 meq 200 In Water For Injection 1 100ml.bag @ 100 mls/hr IVPB Q1H ALBERTO Rx#: [id number] Oral 1200 100 Output: Urine 420 280 75 Other: Voiding Method Indwelling Catheter Indwelling Catheter Indwelling Catheter - Exam GENERAL EXAM: Alert, 71-year-old white female, comfortable in no apparent dis tress. HEAD: Normocephalic and atraumatic EYES: Normal reaction of pupils, equal size. NOSE: Clear with pink turbinates. THROAT: No erythema or exudates. NECK: No masses, no JVD. CHEST: No chest wall deformity. LUNGS: Equal air entry with no crackles, wheeze, rhonchi or dullness. On 2 L nasal cannula. No conversational dyspnea or accessory muscle use.. CVS: S1 and S2 normal with no audible murmur, regular rhythm. No extra heart sounds ABDOMEN: No hepatosplenomegaly, active bowel sounds, no guarding or rigidity. SPINE: No scoliosis or deformity. Positive CVA tenderness on the right SKIN: No rashes CENTRAL NERVOUS SYSTEM: No focal deficits, tone is normal in all 4 extremities. EXTREMITIES: There is no peripheral edema, clubbing, or cyanosis. Peripheral pulses are intact. - Labs CBC & Chem 7: 07/03/22 04:07/03/22 04:30 Labs: Abnormal Lab Results - Last 24 Hours (Table) 07/02/22 07/02/22 07/02/22 Range/Units 04:30 11:40 16:35 RBC (3.80-5.40) m/uL Hgb (11.4-16.0) gm/dL Hct (34.0-46.0) % MCHC (31.0-37.0) g/dL RDW (11.5-15.5) % Sodium (137-145) mmol/L Creatinine (0.52-1.04) mg/dL POC Glucose (mg/dL) 135 H 115 H (70-110) mg/dL Calcium (8.4-10.2) mg/dL Ionized Calcium Jesus Manuel (4.5-5.3) mg/dL PTH Intact 463.0 H (14.0-72.0) pg/mL 07/03/22 07/03/22 07/03/22 Range/Units 04:30 04:30 06:20 RBC 3.08 L (3.80-5.40) m/uL Hgb 8.6 L (11.4-16.0) gm/dL Hct 28.0 L (34.0-46.0) % MCHC 30.8 L (31.0-37.0) g/dL RDW 17.8 H (11.5-15.5) % Sodium 135 L (137-145) mmol/L Creatinine 1.14 H (0.52-1.04) mg/dL POC Glucose (mg/dL) (70-110) mg/dL Calcium 5.9 L* (8.4-10.2) mg/dL Ionized Calcium Jesus Manuel 3.9 L (4.5-5.3) mg/dL PTH Intact (14.0-72.0) pg/mL Microbiology - Last 24 Hours (Table) 07/01/22 11:28 Blood Culture - Preliminary Blood 06/29/22 13:55 Blood Culture - Preliminary Blood Assessment and Plan Assessment: Septic shock secondary to urinary tract infection. The patient has gram- negative bacteria in her urine and Klebsiella pneumoniae in her blood and the source of the septic shock is most likely an underlying urinary tract infection. The patient remains off pressors Urosepsis, with history of frequent urinary tract infections in the past including ESBL producing organisms. Patient was taken off pressors today Acute hypoxic respiratory failure currently on 2 L nasal cannula Non-anion gap hyperchloremic metabolic acidosis , improving Hyperkalemia, treated with insulin and dextrose, recovered Chronic kidney disease stage IIIa, creatinine is stable, improving, creatinine is down to 1.14 , Right hydronephrosis, possibly chronic in nature. Diabetes mellitus type 2 diet-controlled, Osteoarthritis Morbid obesity chronic atrial fib Plan: overall stable on 2 L of oxygen by nasal cannula Hypertension is most like related to septic shock, recovered Repeat the ultrasound the kidneys to evaluate the right kidney hydronephrosis Urology is on the case the patient had a normal cortisol level and there is no signs of any adrenal insufficiency Echocardiogram results were noted and the patient has a mild LV dysfunction with an EF around 45-50%. She has a hyperdynamic LV. No significant valvular abnormalities. Resident for systolic pressure was elevated at 49. The patient currently off pressors Continue Avycaz continue amiodarone and metoprolol anticoagulation with Eliquis regarding her atrial fibrillation. Changes IV fluids to KVO Creatinine continues to improve History this patient to medical floor today.
[2022-07-03] MEDS: METOPROLOL TARTRATE 50 MG TAB PO SCH ×2 (11:19→20:39)
[2022-07-03 11:28] LABS: Glucose,Whole Blood 99 mg/dL (70-110)
[2022-07-03] MEDS ORDERED: CALCIUM GLUCONATE IN NACL 2 GM in SALINE 1 100ML.BAG IVPB ONE (12:00)
[2022-07-03] MEDS: ACETAMINOPHEN TAB 325 MG TAB PO PRN (14:03)
[2022-07-03 16:23] LABS: Glucose,Whole Blood 101 mg/dL (70-110)
[2022-07-03] MEDS: NOREPINEPHRINE 32 MG in SODIUM CHLORIDE 0.9% 218 ML IV SCH (16:40)
[2022-07-03] MEDS: FAMOTIDINE 20 MG/2 ML VIAL IV SCH (20:38)
[2022-07-03 21:10] LABS: Glucose,Whole Blood 100 mg/dL (70-110)
--- NOTE | 2022-07-03 21:31 | P.PN ---
Subjective This is a pleasant 71 years old female with past medical history depression, osteoporosis, pleural effusion, hypertension Patient presents because of right lower quadrant abdominal pain 1-2 days' duration radiating to the back mild to moderate in severity associated with some nausea and generalized weakness. Patient denies chest pain or dyspnea. No change in mental status. No recent fall. She denies smoking alcohol or illicit drugs On admission she was hypotensive with blood pressure 80/52. Currently blood pressure 118/68. The blood pressure improved Also patient had a fever of 102.6 last night She has marked leukocytosis with 12.3 hemoglobin 11.1, platelet count normal. Electrolytes this morning are normal. Creatinine went up slightly 1.28 Glucose 78, calcium low 6.3. Bilirubin and liver enzymes are unremarkable. Urinalysis is suspicious for infection EKG: Sinus tachycardia at [address]-T changes, left axis gifty ation and poor progression of R-wave, similar to old EKG CT of the abdomen and pelvis with contrast, moderate right hydronephrosis with no hydroureter and perinephric stranding Chest x-ray reviewed by myself showing right pleural effusion and cardiomegaly Of vancomycin and normal saline. Also she started on Lopressor 07/01/2022 Patient awake and alert but slightly lethargic. She's been complaining of from mild headache and tremor in her hand but no overt weakness or numbness. She's feeling nausea she says some popsicles this morning that went real, she feels hungry and she was nausea medicine and see if she can start eating. No chest pain or dyspnea. No abdominal pain. No diarrhea. She remains on small dose of Levophed at 0.03 also she is on sodium bicarbonate 100 mL per hour and Blood culture from 2 days ago came back positive for Klebsiella. We are going to repeat blood culture today to confirm clearance 07/02/2022 Patient is awake and alert, she denies any specific complaints, she is somewhat generally weak but mentation is normal, no much respiratory symptoms, no much ur inary symptoms. Krishnamurthy catheter is in place. She still needs pressors and today she needs her dose of levophed at 0.07. She remains on ceftazidime and blood culture is growing Klebsiella pneumoniae. Urine culture showing gram-negative bacilli pending final results. She remains on ceftazidime. repeat blood culture from yesterday is pending. She is also on normal saline 75 mL/h Cardiology on the case for her A. fib, rate controlled currently she is on Eliquis 5 mg, amiodarone 400 mg and metoprolol 50 mg She has low calcium and phosphorus and high PTH consistent with vitamin D deficiency with level less than 5, replacement is a started. Follow-up renal ultrasound 07/03/2022 Patient is doing well, she is up in bed and eating well Her sepsis have improved and she does not need any pressors anymore. IV fluids stopped and she received 1 dose of IV Lasix. Remains on ceftazidime for Klebsiella bacteremia and Klebsiella UTI. Repeat blood cultures pending. She remains on Eliquis, amiodarone and metoprolol. Patient will need cardioversion of her A. fib with RVR persistent after sepsis resolved. She has evidence of hemoglobin delusion with WBCs back to normal at 9.2, hemoglobin 8.6. Creatinine improving. She has evidence of hypocalcemia secondary to vitamin D deficiency place on repl acement therapy Patient is transferred to the general medical floor today Objective - Vital Signs Vital signs: Vital Signs Temp 98.3 F 07/03/22 12:00 Pulse 90 07/03/22 14:00 Resp 14 07/03/22 14:00 BP 105/73 07/03/22 14:00 Pulse Ox 98 07/03/22 14:00 FiO2 Intake & Output 07/02/22 07/03/22 07/03/22 18:59 06:59 18:59 Intake Total 2738.511 1031.295 740 Output Total 465 258 5767 Balance 2318.511 751.295 -895 Weight 88.1 kg Intake: IV 1535 1025 440 0.9 935 825 340 Ceftazidime/Avibactam 1. 200 200 100 25 gm In Sodium Chloride 0.9% 100 ml @ 50 mls/hr IVPB Q8H ALBERTO Rx#: [id number] Dextrose 5% in Water 1, 400 000 ml @ 100 mls/hr IV . [id number] ALBERTO with Sodium Bicarb (1 Meq/ml) 150 ml Rx#:[id number] Intake, IV Titration 3.511 6.295 200 Amount Norepinephrine 32 mg In 3.511 6.295 Sodium Chloride 0.9% 218 ml @ 0.03 MCG/KG/MIN 1. 211 mls/hr IV .Q24H ALBERTO Rx#:[id number] Potassium Chloride 10 meq 200 In Water For Injection 1 100ml.bag @ 100 mls/hr IVPB Q1H ALBERTO Rx#: [id number] Oral 1200 100 Output: Urine 151 144 1318 Other: Voiding Method Indwelling Catheter Indwelling Catheter Indwelling Catheter - Exam -GENERAL: The patient is alert and oriented x3, not in any acute distress. obese. Lethargic HEENT: Pupils are round and equally reacting to light. EOMI. No scleral icterus. No conjunctival pallor. Normocephalic, atraumatic. No pharyngeal erythema. No thyromegaly. CARDIOVASCULAR: S1 and S2 present. No murmurs, rubs, or gallops. PULMONARY: Chest is clear to auscultation, no wheezing or crackles. -ABDOMEN: Soft, nontender, nondistended, normoactive bowel sounds. No palpable organomegaly. Krishnamurthy catheter in place MUSCULOSKELETAL: No joint swelling or deformity. EXTREMITIES: No cyanosis, clubbing, or pedal edema. NEUROLOGICAL: Gross neurological examination did not reveal any focal deficits. SKIN: No rashes. no petechiae. - Labs CBC & Chem 7: 07/03/22 04:30 07/03/22 04:30 Labs: Abnormal Lab Results - Last 24 Hours (Table) 07/02/22 07/03/22 07/03/22 Range/Units 16:35 04:30 04:30 RBC 3.08 L (3.80-5.40) m/uL Hgb 8.6 L (11.4-16.0) gm/dL Hct 28.0 L (34.0-46.0) % MCHC 30.8 L (31.0-37.0) g/dL RDW 17.8 H (11.5-15.5) % Sodium 135 L (137-145) mmol/L Creatinine 1.14 H (0.52-1.04) mg/dL POC Glucose (mg/dL) 115 H (70-110) mg/dL Calcium 5.9 L* (8.4-10.2) mg/dL Ionized Calcium Jesus Manuel (4.5-5.3) mg/dL 07/03/22 Range/Units 06:20 RBC (3.80-5.40) m/uL Hgb (11.4-16.0) gm/dL Hct (34.0-46.0) % MCHC (31.0-37.0) g/dL RDW (11.5-15.5) % Sodium (137-145) mmol/L Creatinine (0.52-1.04) mg/dL POC Glucose (mg/dL) (70-110) mg/dL Calcium (8.4-10.2) mg/dL Ionized Calcium Jesus Manuel 3.9 L (4.5-5.3) mg/dL Microbiology - Last 24 Hours (Table) 06/29/22 13:55 Blood Culture Gram Stain - Preliminary Blood Blood Culture - Preliminary Klebsiella pneumoniae 07/01/22 11:28 Blood Culture - Preliminary Blood 06/29/22 13:55 Blood Culture - Preliminary Blood Assessment and Plan Assessment: Septic shock Acute urinary tract infection Mild right hydronephrosis Klebsiella bacteremia History of depression History of osteoporosis History of hypertension, currently hypotensive chronic kidney disease stage III Chronic right pleural effusion Plan: Continued antibiotic, currently on ceftazidime Follow-up repeat blood culture pulmonary/critical care team while consult Urologist consult on the case Keep patient off IV hydration Cardiology consult, patient kept on amiodarone, metoprolol and Eliquis Start vitamin D replacement therapy Labs and medication were reviewed.. Continue same treatment. Continue with sy mptomatic treatment. Resume home medication. Monitor labs and vitals. DVT and GI prophylaxis. Further recommendations as per clinical course of the patient DVT prophylaxis: Eliquis GI Prophylaxis: Pepcid PT/OT: Pending Prognosis is guarded
[2022-07-04 06:06] LABS: Glucose,Whole Blood 105 mg/dL (70-110)
[2022-07-04 06:29] LABS: African American GFR (CKD) 52 (>60 ml/min/1.73 sqM); Anion Gap 1 mmol/L; Blood Urea Nitrogen 15 mg/dL (7-17); Carbon Dioxide 30 mmol/L (22-30); Chloride 105 mmol/L (98-107); Glucose 90 mg/dL (74-99); Non-African American GFR(CKD) 45 (>60 ml/min/1.73 sqM); Potassium 3.8 mmol/L (3.5-5.1); Sodium 136 mmol/L (137-145)
[2022-07-04 06:41] LABS: Calcium 6.3 mg/dL (8.4-10.2)
[2022-07-04] MEDS: CEFTAZIDIME/AVIBACTAM 1.25 GM in SODIUM CHLORIDE 0.9% 100 ML IVPB SCH ×3 (07:04→20:37)
[2022-07-04] MEDS ORDERED: CALCIUM GLUCONATE IN NACL 1 GM in SALINE 1 100ML.BAG IVPB ONE (08:00)
--- NOTE | 2022-07-04 09:36 | P.PN ---
Subjective Progress Note Date: 07/04/22 The patient is a 71-year-old female who presented to the emergency room with urosepsis, she presented in sinus mechanism and subsequently went into atrial fibrillation with rapid ventricular response. She was hypotensive requiring IV fluid in addition to vasopressors. Her cardiac history is remarkable for a prior history of nonischemic cardiomyopathy, underwent cardiac catheterization in 2018 that showed no evidence of obstructive coronary disease. Her last echocardiogram available in 2019 showed a normal systolic function. She has no prior history of atrial fibrillation. She has a history of diabetes and chronic kidney disease. She has not been seen in our office since 2019. She was evaluated by urology that recommended continuing treatment in view of her chronic right-sided hydronephrosis. Echocardiogram showed an ejection fraction of 45-50% with mild to moderate tricuspid regurgitation and moderate pulmonary hypertension. She was initially admitted to ICU and has stabilized and tra nsferred to med-surg. 07/04/2022 Seen and examined a syncopal event. In atrial fibrillation with relatively well-controlled ventricular response. She denies any chest discomfort, dizziness or palpitations. She feels her breathing is good. Appetite is fair. She's been afebrile. The pressures on the low side but stable. Labs today show sodium 136, potassium 3.8, BUN 15, creatinine 1.22 and calcium of 6.3 which has been low since admission. Objective - Vital Signs Vital signs: Vital Signs Temp 98.1 F 07/04/22 07:38 Pulse 103 H 07/04/22 07:38 Resp 16 07/04/22 07:38 BP 103/66 07/04/22 07:38 Pulse Ox 98 07/04/22 08:04 FiO2 Intake & Output 07/03/22 07/04/22 07/04/22 18:59 06:59 18:59 Intake Total 740 Output Total 1635 950 Balance -895 -950 Intake: IV 440 0.9 340 Ceftazidime/Avibactam 1. 100 25 gm In Sodium Chloride 0.9% 100 ml @ 50 mls/hr IVPB Q8H ALBERTO Rx#: [id number] Intake, IV Titration 200 Amount Potassium Chloride 10 meq 200 In Water For Injection 1 100ml.bag @ 100 mls/hr IVPB Q1H ALBERTO Rx#: [id number] Oral 100 Output: Urine 1635 950 Other: Voiding Method Indwelling Catheter Indwelling Catheter # Bowel Movements 1 - Exam PHYSICAL EXAMINATION: Blood pressure 103/66 heart rate 103 oxygen saturation 98% on 2 L nasal cannula LUNGS: Clear to auscultation HEART: Irregular rate and rhythm, S1, S2. No S3. systolic ejection murmur ABDOMEN: Soft, nontender, no organomegaly EXTREMETIES: Trace edema - Labs CBC & Chem 7: 07/03/22 04:30 07/04/22 05:53 Labs: Abnormal Lab Results - Last 24 Hours (Table) 07/04/22 Range/Units 05:53 Sodium 136 L (137-145) mmol/L Creatinine 1.22 H (0.52-1.04) mg/dL Calcium 6.3 L* (8.4-10.2) mg/dL Microbiology - Last 24 Hours (Table) 06/29/22 13:54 Urine Culture - Preliminary Urine,Voided Klebsiella pneumoniae 06/29/22 13:55 Blood Culture Gram Stain - Preliminary Blood Blood Culture - Preliminary Klebsiella pneumoniae 07/01/22 11:28 Blood Culture - Preliminary Blood 06/29/22 13:55 Blood Culture - Preliminary Blood Assessment and Plan Assessment: 1. Septic shock with gram-negative urine tract infection with chronic hydronephrosis 2. Paroxysmal atrial fibrillation, new onset, rate under better control 3. Hypotension, related to sepsis, resolved 4. History of hypertension in the past 5. Abnormal thyroid function tests 6. Mild cardiomyopathy Plan: From cardiology's perspective medications were reviewed and we will continue the same. Continue to follow renal functions. Increase physical activity. If patient remains in atrial fibrillation after resolution of sepsis we may consider cardioversion. CLINICAL SERVICES ASSISTANT note has been reviewed, I agree with a documented findings and plan of care. Patient was seen and examined.
[2022-07-04] MEDS: METOPROLOL TARTRATE 50 MG TAB PO SCH ×2 (09:49→20:37)
[2022-07-04] MEDS: CHOLECALCIFEROL 125 MCG (5000 IU) TABLET PO SCH (09:49)
[2022-07-04] MEDS: AMIODARONE 200 MG TAB PO SCH ×2 (09:49→20:37)
[2022-07-04] MEDS: APIXABAN 5 MG TAB PO SCH ×2 (09:49→20:37)
[2022-07-04] MEDS: SODIUM CHLORIDE 0.9% 1,000 ML IV SCH (09:50)
[2022-07-04] MEDS: HYDROcodone/APAP 5-325MG 1 EACH TAB PO PRN ×2 (10:10→20:41)
[2022-07-04 11:26] LABS: Glucose,Whole Blood 148 mg/dL (70-110)
--- NOTE | 2022-07-04 13:07 | P.PN ---
Subjective Progress Note Date: 07/04/22 I'm seeing this patient in new consultation today 06/30/2022 in the emergency room for urosepsis. Patient is a 71-year-old white female with past medical history of frequent UTIs with previous ESBL producing organisms in the past, kidney stones, diabetes mellitus, hypertension, osteoarthritis. Patient was previously seen by Dr. Boyd in the past for a small right pleural effusion. Patient presented to the emergency room yesterday afternoon for right flank and abdominal pain that started earlier that morning. Patient does admit some difficulty urinating and intermittent fever and chills. She denies any hematuria, nausea or vomiting, diarrhea, constipation, black or bloody stools. Urinalysis on admission was positive for nitrates and leukocytes. Urine culture is pending. Patient was originally admitted to the general medical floor, however, she became quite hypotensive despite being given a total of 1.5 L normal saline. She currently has her norepinephrine infusing at 0.03 mics per k ilogram per minute. There is normal saline infusing at 167 mL per hour. Blood pressure still marginal. CT of the abdomen and pelvis with contrast shows moderate right-sided hydronephrosis without hydroureter and perinephric stranding. Hydronephrosis might be chronic in nature, as it has been dem onstrated on previous imaging. Patient's CBC on arrival shows leukocytosis with a WBC count of 12.3, hemoglobin 11.1, hematocrit 36.8, platelets 339,000. Patient's BMP shows a sodium 136, potassium 6.1, chloride 112, serum CO2 17, BUN 20, creatinine 1.05, glucose 144. Patient's hyperkalemia was treated with insulin and dextrose. No recheck has been performed yet. Patient's lactic acid level is 1.6. Troponin negative 1. Patient is currently receiving a combination of Rocephin and vancomycin for antibiotic coverage. T-max of 102.6F. Patient's blood pressure remains marginal, and is requiring norepinephrine titrations. For this reason the patient will be admitted to the intensive care unit once bed available for closer monitoring. On today's evaluation of 07/01/2022, the patient is being seen for a follow-up for septic shock related to gram-negative bacteria and this are not to be of a urinary source and the patient's infected with Tessalon pneumonia and the cultures are positive. The patient has been adequately resuscitated with IV fluids and the patient remains on pressors. This morning, she is on norepinephrine infusion and this is running at 0.3 mcg/kg/m. Unfortunately, she remains pressor dependent. IV fluids are in the form of a bicarb infusion which is running at the rate of 100 mL an hour. In terms of her antibiotic coverage, the patient was given Avycaz and the suggestion was done by pharmacy based on preliminary cultures and sensitivities. The patient's white cell count is down to 26. Hemoglobin is at 10.2. Platelet count is at 3:15. BUN is at 20 with a creatinine of 1.2 and sodium levels of 136. Calcium level is at 6.0. The patient was also seen by urology. There is a chronic right sided hydronephrosis. No intervention was recommended. The patient has a Krishnamurthy catheter in place. on 07/02/2022, the patient is currently in the intensive care unit. She was admitted to the ICU because of septic shock. His of a urinary [facility] gram-negative septic shock secondary to UTI with Klebsiella pneumonia. The patient is currently on a bicarb infusion. Serum bicarb is normalized. She still on pressors. Norepinephrine is running at a lower rate of 0.07 mcg/kg/m. In terms of in terms of antibiotic coverage, the patient is currently on Avycaz at a dose of 1.25 g every 8 hours. Her underlying cardiac rhythm is in atrial fibrillation.the patient's overall is awake and communicating at this point in time. She is on oxygen at 2 L per minute nasal cannula. She is not having any significant respiratory distress. She remains in atrial fibrillation. She is on anti-cognition without liquids. She is also on oral amiodarone. Metoprolol is currently on hold based on underlying hypertension. Urology has seen the patient and there is no plan to do any intervention regarding this right kidney hydronephrosis. I think is reasonable to repeat ultrasound the reevaluate the presence of ongoing hydronephrosis 07/03/2022, the patient is off pressors. The patient has been off pressors since 2300 last night. Cardiac rhythm remained nature fibrillation with a controlled rate.. She is on the same antibiotic coverage. Breathing is comfortable and the patient remains on 2 L of oxygen nasal cannula. She remains on oral amiodarone. She was also started on metoprolol 50 mg and the patient was given a dose of Lasix by cardiology at a dose of 40 mg IV 1. On her blood work, the WBC count of 9.2 with a hemoglobin of 8.6 and a platelet count of 202. BUN is at 40 with a creatinine of 1.1 and his sodium level is at 135. Calcium level is low at 5.9. White cell count is improved and the white cell count has dropped significantly from as high as 39 down to 9.2. 07/04/2022, seeing the patient for a follow-up. The patient is doing very well. The patient was transferred out of the intensive care unit the patient is currently on a medical floor. Continues to be on antibiotics. the patient continues avycaz, currently on room air oxygen. No altered mentation. BUN is at 39 with a creatinine of 1.4 and a sodium level is at 142. Objective - Vital Signs Vital signs: Vital Signs Temp 98.1 F 07/04/22 07:38 Pulse 103 H 07/04/22 07:38 Resp 16 07/04/22 07:38 BP 103/66 07/04/22 07:38 Pulse Ox 98 07/04/22 08:04 FiO2 Intake & Output 07/03/22 07/04/22 07/04/22 18:59 06:59 18:59 Intake Total 740 Output Total 1635 950 Balance -895 -950 Intake: IV 440 0.9 340 Ceftazidime/Avibactam 1. 100 25 gm In Sodium Chloride 0.9% 100 ml @ 50 mls/hr IVPB Q8H [facility] Rx#: [id number] Intake, IV Titration 200 Amount Potassium Chloride 10 meq 200 In Water For Injection 1 100ml.bag @ 100 mls/hr IVPB Q1H [facility] Rx#: [id number] Oral 100 Output: Urine 1635 950 Other: Voiding Method Indwelling Catheter Indwelling Catheter # Bowel Movements 1 - Exam GENERAL EXAM: Alert, 71-year-old white female, comfortable in no apparent distress. HEAD: Normocephalic and atraumatic EYES: Normal reaction of pupils, equal size. NOSE: Clear with pink turbinates. THROAT: No erythema or exudates. NECK: No masses, no JVD. CHEST: No chest wall deformity. LUNGS: Equal air entry with no crackles, wheeze, rhonchi or dullness. On 2 L nasal cannula. No conversational dyspnea or accessory muscle use.. CVS: S1 and S2 normal with no audible murmur, regular rhythm. No extra heart sounds ABDOMEN: No hepatosplenomegaly, active bowel sounds, no guarding or rigidity. SPINE: No scoliosis or deformity. Positive CVA tenderness on the right SKIN: No rashes CENTRAL NERVOUS SYSTEM: No focal deficits, tone is normal in all 4 extremities. EXTREMITIES: There is no peripheral edema, clubbing, or cyanosis. Peripheral pulses are intact. - Labs CBC & Chem 7: 07/03/22 04:30 07/04/22 05:53 Labs: Abnormal Lab Results - Last 24 Hours (Table) 07/04/22 07/04/22 Range/Units 05:53 11:22 Sodium 136 L (137-145) mmol/L Creatinine 1.22 H (0.52-1.04) mg/dL POC Glucose (mg/dL) 148 H (70-110) mg/dL Calcium 6.3 L* (8.4-10.2) mg/dL Microbiology - Last 24 Hours (Table) 07/01/22 11:28 Blood Culture - Preliminary Blood 06/29/22 13:55 Blood Culture - Preliminary Blood 06/29/22 13:54 Urine Culture - Preliminary Urine,Voided Klebsiella pneumoniae 06/29/22 13:55 Blood Culture Gram Stain - Preliminary Blood Blood Culture - Preliminary Klebsiella pneumoniae Assessment and Plan Assessment: Septic shock secondary to urinary tract infection. The patient has gram-negat jared bacteria in her urine and Klebsiella pneumoniae in her blood and the source of the septic shock is most likely an underlying urinary tract infection. The patient remains off pressors Urosepsis, with history of frequent urinary tract infections in the past including ESBL producing organisms. Patient was taken off pressors today Acute hypoxic respiratory failure currently on 2 L nasal cannula Non-anion gap hyperchloremic metabolic acidosis , improving Hyperkalemia, treated with insulin and dextrose, recovered Chronic kidney disease stage IIIa, creatinine is stable, improving, creatinine is down to 1.14 , Right hydronephrosis, possibly chronic in nature. Diabetes mellitus type 2 diet-controlled, Osteoarthritis Morbid obesity chronic atrial fib Plan: overall stable on RA 02 Hypertension is most like related to septic shock, recovered Repeat the ultrasound the kidneys to evaluate the right kidney hydronephrosis Urology is on the case the patient had a normal cortisol level and there is no signs of any adrenal insufficiency Echocardiogram results were noted and the patient has a mild LV dysfunction with an EF around 45-50%. She has a hyperdynamic LV. No significant valvular abnormalities. Resident for systolic pressure was elevated at 49. Continue Avycaz continue amiodarone and metoprolol anticoagulation with Eliquis regarding her atrial fibrillation. Changes IV fluids to KVO Creatinine continues to improve History this patient to medical floor today. Plan: Septic shock secondary to urinary tract infection. The patient has gram- negative bacteria in her urine and Klebsiella pneumoniae in her blood and the s ource of the septic shock is most likely an underlying urinary tract infection. The patient remains off pressors Urosepsis, with history of frequent urinary tract infections in the past including ESBL producing organisms. Clinically stable Acute hypoxic respiratory failure currently on 2 L nasal cannula Non-anion gap hyperchloremic metabolic acidosis , improving Hyperkalemia, treated with insulin and dextrose, recovered Chronic kidney disease stage IIIa, creatinine is stable, improving, creatinine is down to 1.14 , Right hydronephrosis, possibly chronic in nature. Diabetes mellitus type 2 diet-controlled, Osteoarthritis Morbid obesity chronic atrial fib Plan: overall stable on 2 L O2 nasal cannula Hypertension is most like related to septic shock, recovered Repeat the ultrasound the kidneys to evaluate the right kidney hydronephrosis Urology is on the case the patient had a normal cortisol level and there is no signs of any adrenal insufficiency Echocardiogram results were noted and the patient has a mild LV dysfunction with an EF around 45-50%. She has a hyperdynamic LV. No significant valvular abnormalities. Resident for systolic pressure was elevated at 49. The patient currently off pressors Continue Avycaz continue amiodarone and metoprolol anticoagulation with Eliquis regarding her atrial fibrillation. Changes IV fluids to KVO Creatinine continues to improve Patient was transferred out of the intensive care unit. No active pulmonary or cardiac issues. Pulmonary we'll sign off the case.
[2022-07-04] MEDS: NOREPINEPHRINE 32 MG in SODIUM CHLORIDE 0.9% 218 ML IV SCH (14:58)
--- NOTE | 2022-07-04 16:27 | P.PN ---
Subjective Progress Note Date: 07/04/22 the patient is in the hosptial with a uti with sepsis SHe is feeling much better. Objective - Vital Signs Vital signs: Vital Signs Temp 97.6 F 07/04/22 13:40 Pulse 96 07/04/22 13:40 Resp 18 07/04/22 13:40 BP 94/62 07/04/22 13:40 Pulse Ox 98 07/04/22 13:40 FiO2 Intake & Output 07/03/22 07/04/22 07/04/22 18:59 06:59 18:59 Intake Total 740 Output Total 1635 950 900 Balance -895 -950 -900 Intake: IV 440 0.9 340 Ceftazidime/Avibactam 1. 100 25 gm In Sodium Chloride 0.9% 100 ml @ 50 mls/hr IVPB Q8H [facility] Rx#: [id number] Intake, IV Titration 200 Amount Potassium Chloride 10 meq 200 In Water For Injection 1 100ml.bag @ 100 mls/hr IVPB Q1H [facility] Rx#: [id number] Oral 100 Output: Urine 1635 950 900 Other: Voiding Method Indwelling Catheter Indwelling Catheter Indwelling Catheter # Bowel Movements 1 - Labs CBC & Chem 7: 07/03/22 04:30 07/04/22 05:53 Labs: Abnormal Lab Results - Last 24 Hours (Table) 07/04/22 07/04/22 Range/Units 05:53 11:22 Sodium 136 L (137-145) mmol/L Creatinine 1.22 H (0.52-1.04) mg/dL POC Glucose (mg/dL) 148 H (70-110) mg/dL Calcium 6.3 L* (8.4-10.2) mg/dL Microbiology - Last 24 Hours (Table) 07/01/22 11:28 Blood Culture - Preliminary Blood 06/29/22 13:55 Blood Culture - Preliminary Blood 06/29/22 13:54 Urine Culture - Preliminary Urine,Voided Klebsiella pneumoniae 06/29/22 13:55 Blood Culture Gram Stain - Preliminary Blood Blood Culture - Preliminary Klebsiella pneumoniae Assessment and Plan Assessment: Impression: Uti with sepsis due to klebiella uti 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 (1) Hydronephrosis Current Visit: Yes Status: Acute Code(s): N13.30 - UNSPECIFIED HYDRONEPHROSIS SNOMED Code(s): 09226489
[2022-07-04 16:31] LABS: Glucose,Whole Blood 122 mg/dL (70-110)
[2022-07-04] MEDS: FAMOTIDINE 20 MG/2 ML VIAL IV SCH (20:37)
[2022-07-04 20:50] LABS: Glucose,Whole Blood 113 mg/dL (70-110)
--- NOTE | 2022-07-04 21:30 | P.PN ---
Subjective This is a pleasant 71 years old female with past medical history depression, osteoporosis, pleural effusion, hypertension Patient presents because of right lower quadrant abdominal pain 1-2 days' duration radiating to the back mild to moderate in severity associated with some nausea and generalized weakness. Patient denies chest pain or dyspnea. No change in mental status. No recent fall. She denies smoking alcohol or illicit drugs On admission she was hypotensive with blood pressure 80/52. Currently blood pressure 118/68. The blood pressure improved Also patient had a fever of 102.6 last night She has marked leukocytosis with 12.3 hemoglobin 11.1, platelet count normal. Electrolytes this morning are normal. Creatinine went up slightly 1.28 Glucose 78, calcium low 6.3. Bilirubin and liver enzymes are unremarkable. Urinalysis is suspicious for infection EKG: Sinus tachycardia at [address]-T changes, left axis gifty ation and poor progression of R-wave, similar to old EKG CT of the abdomen and pelvis with contrast, moderate right hydronephrosis with no hydroureter and perinephric stranding Chest x-ray reviewed by myself showing right pleural effusion and cardiomegaly Of vancomycin and normal saline. Also she started on Lopressor 07/01/2022 Patient awake and alert but slightly lethargic. She's been complaining of from mild headache and tremor in her hand but no overt weakness or numbness. She's feeling nausea she says some popsicles this morning that went real, she feels hungry and she was nausea medicine and see if she can start eating. No chest pain or dyspnea. No abdominal pain. No diarrhea. She remains on small dose of Levophed at 0.03 also she is on sodium bicarbonate 100 mL per hour and Blood culture from 2 days ago came back positive for Klebsiella. We are going to repeat blood culture today to confirm clearance 07/02/2022 Patient is awake and alert, she denies any specific complaints, she is somewhat generally weak but mentation is normal, no much respiratory symptoms, no much ur inary symptoms. Krishnamurthy catheter is in place. She still needs pressors and today she needs her dose of levophed at 0.07. She remains on ceftazidime and blood culture is growing Klebsiella pneumoniae. Urine culture showing gram-negative bacilli pending final results. She remains on ceftazidime. repeat blood culture from yesterday is pending. She is also on normal saline 75 mL/h Cardiology on the case for her A. fib, rate controlled currently she is on Eliquis 5 mg, amiodarone 400 mg and metoprolol 50 mg She has low calcium and phosphorus and high PTH consistent with vitamin D deficiency with level less than 5, replacement is a started. Follow-up renal ultrasound 07/03/2022 Patient is doing well, she is up in bed and eating well Her sepsis have improved and she does not need any pressors anymore. IV fluids stopped and she received 1 dose of IV Lasix. Remains on ceftazidime for Klebsiella bacteremia and Klebsiella UTI. Repeat blood cultures pending. She remains on Eliquis, amiodarone and metoprolol. Patient will need cardioversion of her A. fib with RVR persistent after sepsis resolved. She has evidence of hemoglobin delusion with WBCs back to normal at 9.2, hemoglobin 8.6. Creatinine improving. She has evidence of hypocalcemia secondary to vitamin D deficiency place on repl acement therapy Patient is transferred to the general medical floor today 07/04/2022 Patient improving every day slowly and gradually, she has good appetite and she is awake and she denies any new symptom. She remains on the same antibiotic ceftazidime for Klebsiella bacteremia and UTI. Repeat blood cultures still pending Blood pressure is borderline, no need for pressors Continue on normal saline 75 mL/h Continue on metoprolol, amiodarone and Eliquis for A. fib which cardiology saw the case Discontinue Krishnamurthy catheter today and rechecked bladder scan was 119, ordered to check bladder scan again tomorrow morning Urologist on the case Physical therapist evaluation in the morning Objective - Vital Signs Vital signs: Vital Signs Temp 98.1 F 07/04/22 07:38 Pulse 103 H 07/04/22 07:38 Resp 16 07/04/22 07:38 BP 103/66 07/04/22 07:38 Pulse Ox 98 07/04/22 08:04 FiO2 Intake & Output 07/03/22 07/04/22 07/04/22 18:59 06:59 18:59 Intake Total 740 Output Total 1635 950 Balance -895 -950 Intake: IV 440 0.9 340 Ceftazidime/Avibactam 1. 100 25 gm In Sodium Chloride 0.9% 100 ml @ 50 mls/hr IVPB Q8H [facility] Rx#: [id number] Intake, IV Titration 200 Amount Potassium Chloride 10 meq 200 In Water For Injection 1 100ml.bag @ 100 mls/hr IVPB Q1H [facility] Rx#: [id number] Oral 100 Output: Urine 1635 950 Other: Voiding Method Indwelling Catheter Indwelling Catheter # Bowel Movements 1 - Exam -GENERAL: The patient is alert and oriented x3, not in any acute distress. obese. Lethargic HEENT: Pupils are round and equally reacting to light. EOMI. No scleral icterus. No conjunctival pallor. Normocephalic, atraumatic. No pharyngeal erythema. No thyromegaly. CARDIOVASCULAR: S1 and S2 present. No murmurs, rubs, or gallops. PULMONARY: Chest is clear to auscultation, no wheezing or crackles. -ABDOMEN: Soft, nontender, nondistended, normoactive bowel sounds. No palpable organomegaly. Krishnamurthy catheter in place MUSCULOSKELETAL: No joint swelling or deformity. EXTREMITIES: No cyanosis, clubbing, or pedal edema. NEUROLOGICAL: Gross neurological examination did not reveal any focal deficits. SKIN: No rashes. no petechiae. - Labs CBC & Chem 7: 07/03/22 04:30 07/04/22 05:53 Labs: Abnormal Lab Results - Last 24 Hours (Table) 07/04/22 07/04/22 Range/Units 05:53 11:22 Sodium 136 L (137-145) mmol/L Creatinine 1.22 H (0.52-1.04) mg/dL POC Glucose (mg/dL) 148 H (70-110) mg/dL Calcium 6.3 L* (8.4-10.2) mg/dL Microbiology - Last 24 Hours (Table) 07/01/22 11:28 Blood Culture - Preliminary Blood 06/29/22 13:55 Blood Culture - Preliminary Blood 06/29/22 13:54 Urine Culture - Preliminary Urine,Voided Klebsiella pneumoniae 06/29/22 13:55 Blood Culture Gram Stain - Preliminary Blood Blood Culture - Preliminary Klebsiella pneumoniae Assessment and Plan Assessment: Septic shock Acute urinary tract infection Mild right hydronephrosis Klebsiella bacteremia History of depression History of osteoporosis History of hypertension, currently hypotensive chronic kidney disease stage III Chronic right pleural effusion Plan: Continued antibiotic, currently on ceftazidime Follow-up repeat blood culture pulmonary/critical care team signed off the case Urologist consult on the case Keep patient off IV hydration Cardiology consult, patient kept on amiodarone, metoprolol and Eliquis Start vitamin D replacement therapy Labs and medication were reviewed.. Continue same treatment. Continue with symptomatic treatment. Resume home medication. Monitor labs and vitals. DVT and GI prophylaxis. Further recommendations as per clinical course of the patient DVT prophylaxis: Eliquis GI Prophylaxis: Pepcid PT/OT: Pending Prognosis is guarded
[2022-07-04] MEDS: CALCIUM CARBONATE 500 MG CHEWABLE PO SCH (22:29)
[2022-07-05] MEDS: ACETAMINOPHEN TAB 325 MG TAB PO PRN (04:54)
[2022-07-05] MEDS: CEFTAZIDIME/AVIBACTAM 1.25 GM in SODIUM CHLORIDE 0.9% 100 ML IVPB SCH ×3 (05:17→20:48)
[2022-07-05 06:22] LABS: Glucose,Whole Blood 106 mg/dL (70-110)
[2022-07-05] MEDS: CHOLECALCIFEROL 125 MCG (5000 IU) TABLET PO SCH (08:16)
[2022-07-05] MEDS: APIXABAN 5 MG TAB PO SCH ×2 (08:16→20:48)
[2022-07-05] MEDS: METOPROLOL TARTRATE 50 MG TAB PO SCH ×2 (08:16→20:48)
[2022-07-05] MEDS: AMIODARONE 200 MG TAB PO SCH ×2 (08:16→20:48)
[2022-07-05] MEDS: CALCIUM CARBONATE 500 MG CHEWABLE PO SCH ×3 (08:17→20:47)
--- NOTE | 2022-07-05 08:50 | P.PN ---
Subjective Progress Note Date: 07/05/22 HISTORY OF PRESENT ILLNESS: The patient is a 71-year-old female who presented to the emergency room with urosepsis, she presented in sinus mechanism and subsequently went into atrial fibrillation with rapid ventricular response. She was hypotensive requiring IV fluid in addition to vasopressors. Her cardiac history is remarkable for a prior history of nonischemic cardiomyopathy, underwent cardiac catheterization in 2018 that showed no evidence of obstructive coronary disease. Her last echocardiogram available in 2019 showed a normal systolic function. She has no prior history of atrial fibrillation. She has a history of diabetes and chronic kidney disease. She has not been seen in our office since 2019. She was evaluated by urology that recommended continuing treatment in view of her chronic right-sided hydronephrosis. Echocardiogram showed an ejection fraction of 45-50% with mild to moderate tricuspid regurgitation and moderate pulmonary hypertension. She was initially admitted to ICU and has stabilized and transferred to [facility]. 07/04/2022 Seen and examined a syncopal event. In atrial fibrillation with relatively well-controlled ventricular response. She denies any chest discomfort, dizziness or palpitations. She feels her breathing is good. Appetite is fair. She's been afebrile. The pressures on the low side but stable. Labs today show sodium 136, potassium 3.8, BUN 15, creatinine 1.22 and calcium of 6.3 which has been low since admission. 07/05/2022 Patient examined this morning at the bedside. Patient denies chest pain or pressure. She denies shortness of breath. She reports having some increased lower extremity edema. Telemetry reveals sinus mechanism with a heart rate in the 80s. She remains on anticoagulation. PHYSICAL EXAM: VITAL SIGNS: Reviewed. GENERAL: Well-developed in no acute distress. NECK: Supple. No JVD or thyromegaly LUNGS: Respirations even and unlabored. Lungs essentially clear to auscultation bilaterally. HEART: Regular rate and rhythm. S1 and S2 heard. EXTREMITIES: Normal range of motion. No clubbing or cyanosis. Peripheral pulses intact. 1-2+ bilateral lower extremity edema lower extremity edema ASSESSMENT: 1. Septic shock with gram-negative urine tract infection with chronic hydronephrosis 2. Paroxysmal atrial fibrillation, new onset, currently maintaining sinus mechanism 3. Hypotension, related to sepsis, resolved 4. History of hypertension in the past 5. Abnormal thyroid function tests 6. Mild cardiomyopathy PLAN: Continue current cardiac medications Patient is stable for discharge from a cardiac standpoint We will sign off. Please reconsult if needed Patient to follow-up post discharge with Dr. Bermudez Nurse practitioner note has been reviewed by physician. Signing provider agrees with the documented findings, assessment, and plan of care. Objective - Vital Signs Vital signs: Vital Signs Temp 97.8 F 07/05/22 07:27 Pulse 77 07/05/22 07:27 Resp 16 07/05/22 07:27 BP 140/77 07/05/22 07:27 Pulse Ox 94 L 07/05/22 07:27 FiO2 Intake & Output 07/04/22 07/05/22 07/05/22 18:59 06:59 18:59 Output Total 900 750 Balance -900 -750 Output: Urine 900 750 Other: Voiding Method Indwelling Catheter Indwelling Catheter - Labs CBC & Chem 7: 07/03/22 04:30 07/04/22 05:53 Labs: Abnormal Lab Results - Last 24 Hours (Table) 07/04/22 07/04/22 07/04/22 Range/Units 11:22 16:27 20:49 POC Glucose (mg/dL) 148 H 122 H 113 H (70-110) mg/dL Microbiology - Last 24 Hours (Table) 06/29/22 13:55 Blood Culture Gram Stain - Final Blood Blood Culture - Preliminary Klebsiella pneumoniae 06/29/22 13:54 Urine Culture - Preliminary Urine,Voided Klebsiella pneumoniae 07/01/22 11:28 Blood Culture - Preliminary Blood 06/29/22 13:55 Blood Culture - Preliminary Blood
[2022-07-05] MEDS: SODIUM CHLORIDE 0.9% 1,000 ML IV SCH (08:56)
[2022-07-05] MEDS: HYDROcodone/APAP 5-325MG 1 EACH TAB PO PRN ×2 (10:43→22:33)
[2022-07-05 11:16] LABS: Basophils # (A) 0.03 X 10*3/uL (0.00-0.10); Basophils % (A) 0.4 %; Eosinophils # (A) 0.35 X 10*3/uL (0.04-0.35); Eosinophils % (A) 4.3 %; HCT 27.8 % (37.2-46.3); HGB 8.2 g/dL (12.0-15.0); Lymphocytes % (A) 23.5 %; MCH 26.4 pg (27.0-32.0); MCHC 29.5 g/dL (32.0-37.0); MCV 89.4 fL (80.0-97.0); Mean Platelet Volume 11.5 fL (9.5-12.2); Monocytes # (A) 0.87 X 10*3/uL (0.20-1.00); Monocytes % (A) 10.8 %; NRBC Per 100 WBC 0 /100 WBCS (0.0-0.0); Neutrophils # (A) 4.86 X 10*3/uL (1.80-7.70); Platelet Count 194 X 10*3/uL (140-440); RBC 3.11 X 10*6/uL (4.10-5.20); RDW 18.5 % (11.5-14.5); WBC 8.09 X 10*3/uL (4.50-10.00)
[2022-07-05 11:18] LABS: Glucose,Whole Blood 118 mg/dL (70-110)
[2022-07-05 11:26] LABS: African American GFR (CKD) 58.5 (60.0-200.0); Anion Gap 5.3 mmol/L (10.00-18.00); BUN/Creat Ratio 12.64 Ratio (12.00-20.00); Blood Urea Nitrogen 13.9 mg/dL (9.0-27.0); Calcium 7.1 mg/dL (8.7-10.3); Carbon Dioxide 27.7 mmol/L (20.0-27.5); Non-African American GFR(CKD) 50.5 (60.0-200.0); Potassium 3.9 mmol/L (3.5-5.5)
[2022-07-05 13:47] VITALS: BMI 36.6
[2022-07-05] MEDS ORDERED: LOPERAMIDE 2 MG CAP PO STA (14:09)
[2022-07-05 16:46] LABS: Glucose,Whole Blood 128 mg/dL (70-110)
--- NOTE | 2022-07-05 20:29 | P.CONS ---
History of Present Illness - Reason for Consult Consult date: 07/05/22 UTI and bacteremia Requesting physician: Home Dan - Chief Complaint Abdominal pain x few days - History of Present Illness Patient is a 71-year-old female presented to the hospital about a week ago on 06/29/2022 for evaluation of right lower quadrant abdominal pain pain started out with the morning of presentation hospital and radiates to lower back patient describes the pain to be sharp almost 10 out of 10 in intensity with associated nausea vomiting and did have some dysuria patient on presentation to the hospital did have a fever of 102.6 F patient did have a white count of 12.3 which is subsequent up to 39.8 however the white count is normalized creatinine was mildly elevated urine was positive patient did have a CT of abdominal pelvis moderate right-sided hydronephrosis without hydroureter and perinephric stranding patient has been evaluated by urology recommending no surgical intervention as there was concern for 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 patient urine and blood culture has been finalized with ESBL Klebsiella KPC detected patient has been treated with Avycaz since 06/30/2022, infectious disease was consulted today even though the culture were finalize about 5 days ago with multidrug-resistant Klebsiella/CRE Review of Systems Positive point and negatives has been mentioned in the HPI, complete review of systems was performed and all other systems are negative Past Medical History Past Medical History: Diabetes Mellitus, Hypertension, Neurologic Disorder Additional Past Medical History / Comment(s): NEUROPATHY, MIGRAINES, fractured right shoulder, urine MDRO History of Any Multi-Drug Resistant Organisms: CRE, ESBL Year Discovered:: 12/17/20 MDRO Source:: CRE-ESBL URINE Past Surgical History: Bariatric Surgery, Bladder Surgery, Hysterectomy Additional Past Surgical History / Comment(s): ORAL SURGERY. COLONOSCOPY. LAP BAND THEN HAD BARIATRIC SURGERY;. bladder surgery may have been for a benign cyst but is not sure. 16 LBS ABD. TISSUE REMOVED Past Anesthesia/Blood Transfusion Reactions: No Reported Reaction Past Psychological History: Anxiety, Depression Additional Psychological History / Comment(s): Isabela is support dog. Lives with spouse, live in [facility]. Patient uses an electric wheelchair for long distance. Smoking Status: Never smoker Past Alcohol Use History: None Reported Additional Past Alcohol Use History / Comment(s): TRIED SMOKING AT AGE 18 Past Drug Use History: None Reported - Past Family History Mother Family Medical History: Diabetes Mellitus Additional Family Medical History / Comment(s): At [facility] with UTI. Father Family Medical History: CVA/TIA, Diabetes Mellitus Sister(s) Family Medical History: Deep Vein Thrombosis (DVT) Medications and Allergies Home Medications Medication Instructions Recorded Confirmed Type Oxybutynin Chloride 5 mg PO BID 05/15/18 06/29/22 History Metoprolol Tartrate [Lopressor] 50 mg PO BID 02/28/20 06/29/22 History Albuterol Sulfate [Albuterol 2 puff PO RT-QID PRN 06/29/22 06/29/22 History Sulfate Hfa] Alendronate Sodium [Fosamax] 70 mg PO WE 06/29/22 06/29/22 History Benzonatate [Tessalon Perles] 100 mg PO TID PRN 06/29/22 06/29/22 History Amiodarone [Cordarone] 400 mg PO BID #180 tab 07/05/22 Rx Apixaban [Eliquis] 5 mg PO BID #60 tab 07/05/22 Rx Acetaminophen Tab [Tylenol] 325 mg PO Q6HR PRN tab 07/07/22 Rx Calcium Carbonate [Tums] 1,000 mg PO BID tab 07/07/22 Rx Ceftolozane/Tazobactam [Zerbaxa 1.5 gm IVPB Q8HR 10 Days #30 each 07/07/22 Rx 1.5 Gram Vial] Cholecalciferol [Vitamin D3 (125 125 mcg PO DAILY tab 07/07/22 Rx Mcg = 5000 Iu)] Famotidine [Pepcid] 20 mg PO BID #60 tablet 07/07/22 Rx HYDROcodone/APAP 5-325MG [[place] 1 each PO Q6HR PRN #4 tab 07/07/22 Rx 5-325] Ipratropium-Albuterol Nebulize 3 ml INHALATION RT-Q2H PRN each 07/07/22 Rx [Duoneb 0.5 mg-3 mg/3 ml Soln] Ipratropium-Albuterol Nebulize 3 ml INHALATION RT-QID PRN each 07/07/22 Rx [Duoneb 0.5 mg-3 mg/3 ml Soln] Loperamide [Imodium] 2 mg PO QID PRN cap 07/07/22 Rx Allergies Allergy/AdvReac Type Severity Reaction Status Date / Time meperidine [From Demerol] AdvReac Nausea & Verified 06/29/22 13:30 Vomiting Penicillins AdvReac "FALLS Verified 06/29/22 15:14 ALOT"/Weakness Sulfa (Sulfonamide AdvReac Nausea & Verified 06/29/22 15:14 Antibiotics) Vomiting Physical Exam Vitals: Vital Signs Temp Pulse Resp BP Pulse Ox 07/05/22 14:54 97.9 F 69 17 122/77 97 07/05/22 07:27 97.8 F 77 16 140/77 94 L 07/05/22 01:13 98.0 F 78 16 107/71 95 07/04/22 20:40 83 16 07/04/22 19:41 98.0 F 83 16 112/76 97 Intake and Output 07/05/22 07/05/22 07/05/22 06:59 14:59 22:59 Intake Total 100 Output Total 750 Balance -750 100 Intake: IV 100 Ceftazidime/Avibactam 1. 100 25 gm In Sodium Chloride 0.9% 100 ml @ 50 mls/hr IVPB Q8H [facility] Rx#: [id number] Output: Urine 750 Other: Voiding Method External Catheter Weight 88.1 kg GENERAL DESCRIPTION: An daily female lying in bed, no distress. No tachypnea or accessory muscle of respiration use. HEENT: Shows Pallor , no scleral icterus. Oral mucous membrane is dry. No pharyngeal erythema or thrush NECK: Trachea central, no thyromegaly. LUNGS: Unlabored breathing. Clear to auscultation anteriorly. No wheeze or crackle. HEART: S1, S2, regular rate and rhythm. No loud murmur ABDOMEN: Soft, no tenderness , guarding or rigidity, no organomegaly EXTREMITIES: 2+ edema of feet. SKIN: No rash, no masses palpable. NEUROLOGICAL: The patient is awake, alert, oriented x3, mood and affect normal. Results CBC & Chem 7: 07/06/22 08:00 07/06/22 08:00 Labs: Abnormal Lab Results - Last 24 Hours (Table) 07/04/22 07/04/22 07/05/22 Range/Units 16:27 20:49 06:38 RBC 3.11 L (4.10-5.20) X 10*6/uL Hgb 8.2 L (12.0-15.0) g/dL Hct 27.8 L (37.2-46.3) % MCH 26.4 L (27.0-32.0) pg MCHC 29.5 L (32.0-37.0) g/dL RDW 18.5 H (11.5-14.5) % Immature Gran # 0.08 H (0.00-0.04) X 10*3/uL Carbon Dioxide (20.0-27.5) mmol/L Anion Gap (10.00-18.00) mmol/L Est GFR (CKD-EPI)AfAm (60.0-200.0) Est GFR (CKD-EPI)NonAf (60.0-200.0) POC Glucose (mg/dL) 122 H 113 H (70-110) mg/dL Calcium (8.7-10.3) mg/dL 07/05/22 07/05/22 Range/Units 06:38 11:15 RBC (4.10-5.20) X 10*6/uL Hgb (12.0-15.0) g/dL Hct (37.2-46.3) % MCH (27.0-32.0) pg MCHC (32.0-37.0) g/dL RDW (11.5-14.5) % Immature Gran # (0.00-0.04) X 10*3/uL Carbon Dioxide 27.7 H (20.0-27.5) mmol/L Anion Gap 5.30 L (10.00-18.00) mmol/L Est GFR (CKD-EPI)AfAm 58.5 L (60.0-200.0) Est GFR (CKD-EPI)NonAf 50.5 L (60.0-200.0) POC Glucose (mg/dL) 118 H (70-110) mg/dL Calcium 7.1 L (8.7-10.3) mg/dL Microbiology - Last 24 Hours (Table) 06/29/22 13:55 Blood Culture - Final Blood 07/01/22 11:28 Blood Culture - Preliminary Blood 06/29/22 13:55 Blood Culture Gram Stain - Final Blood Blood Culture - Preliminary Klebsiella pneumoniae 04/18/23 13:54 Urine Culture - Preliminary Urine,Voided Klebsiella pneumoniae Assessment and Plan (1) Bacteremia Current Visit: Yes Status: Acute Code(s): R78.81 - BACTEREMIA SNOMED Code(s): 5364601 (2) Sepsis Current Visit: Yes Status: Acute Code(s): A41.9 - SEPSIS, UNSPECIFIED ORGANISM SNOMED Code(s): 20528394 (3) UTI (urinary tract infection) Current Visit: Yes Status: Acute Code(s): N39.0 - URINARY TRACT INFECTION, SITE NOT SPECIFIED SNOMED Code(s): 22963792 Plan: 1patient presented to hospital with sepsis secondary to complicated left-sided UTI/pyelonephritis in this patient blood as well as urine culture been finalized with multidrug-resistant Klebsiella 2-patient to continue with the Avycaz plan will be for 2 weeks of antibiotic from her negative culture at the bedside question concern answered We will follow on clinical condition and cultures to further adjust medication if needed Thank you for this consultation we will follow the patient along with you Time with Patient: Greater than 30
[2022-07-05 20:46] LABS: Glucose,Whole Blood 158 mg/dL (70-110)
[2022-07-05] MEDS: FAMOTIDINE 20 MG/2 ML VIAL IV SCH (21:05)
[2022-07-06] MEDS: ACETAMINOPHEN TAB 325 MG TAB PO PRN (03:21)
[2022-07-06] MEDS: CEFTAZIDIME/AVIBACTAM 1.25 GM in SODIUM CHLORIDE 0.9% 100 ML IVPB SCH ×3 (03:22→21:14)
[2022-07-06 04:40] LABS: Glucose,Whole Blood 114 mg/dL (70-110)
--- NOTE | 2022-07-06 05:16 | P.PN ---
Subjective Progress Note Date: 07/05/22 This is a pleasant 71 years old female with past medical history depression, osteoporosis, pleural effusion, hypertension Patient presents because of right lower quadrant abdominal pain 1-2 days' duration radiating to the back mild to moderate in severity associated with some nausea and generalized weakness. Patient denies chest pain or dyspnea. No change in mental status. No recent fall. She denies smoking alcohol or illicit drugs On admission she was hypotensive with blood pressure 80/52. Currently blood pressure 118/68. The blood pressure improved Also patient had a fever of 102.6 last night She has marked leukocytosis with 12.3 hemoglobin 11.1, platelet count normal. Electrolytes this morning are normal. Creatinine went up slightly 1.28 Glucose 78, calcium low 6.3. Bilirubin and liver enzymes are unremarkable. Urinalysis is suspicious for infection EKG: Sinus tachycardia at [address]-T changes, left axis deviation and poor progression of R-wave, similar to old EKG CT of the abdomen and pelvis with contrast, moderate right hydronephrosis with no hydroureter and perinephric stranding Chest x-ray reviewed by myself showing right pleural effusion and cardiomegaly Of vancomycin and normal saline. Also she started on Lopressor 07/01/2022 Patient awake and alert but slightly lethargic. She's been complaining of from mild headache and tremor in her hand but no overt weakness or numbness. She's feeling nausea she says some popsicles this morning that went real, she feels hungry and she was nausea medicine and see if she can start eating. No chest pain or dyspnea. No abdominal pain. No diarrhea. She remains on small dose of Levophed at 0.03 also she is on sodium bicarbonate 100 mL per hour and Blood culture from 2 days ago came back positive for Klebsiella. We are going to repeat blood culture today to confirm clearance 07/02/2022 Patient is awake and alert, she denies any specific complaints, she is somewhat generally weak but mentation is normal, no much respiratory symptoms, no much urinary symptoms. Krishnamurthy catheter is in place. She still needs pressors and today she needs her dose of levophed at 0.07. She remains on ceftazidime and blood culture is growing Klebsiella pneumoniae. Urine culture showing gram-negative bacilli pending final results. She remains on ceftazidime. repeat blood culture from yesterday is pending. She is also on normal saline 75 mL/h Cardiology on the case for her A. fib, rate controlled currently she is on Eliquis 5 mg, amiodarone 400 mg and metoprolol 50 mg She has low calcium and phosphorus and high PTH consistent with vitamin D deficiency with level less than 5, replacement is a started. Follow-up renal ultrasound 07/03/2022 Patient is doing well, she is up in bed and eating well Her sepsis have improved and she does not need any pressors anymore. IV fluids stopped and she received 1 dose of IV Lasix. Remains on ceftazidime for Klebsiella bacteremia and Klebsiella UTI. Repeat blood cultures pending. She remains on Eliquis, amiodarone and metoprolol. Patient will need cardioversion of her A. fib with RVR persistent after sepsis resolved. She has evidence of hemoglobin delusion with WBCs back to normal at 9.2, hemoglobin 8.6. Creatinine improving. She has evidence of hypocalcemia secondary to vitamin D deficiency place on replacement therapy Patient is transferred to the general medical floor today 07/04/2022 Patient improving every day slowly and gradually, she has good appetite and she is awake and she denies any new symptom. She remains on the same antibiotic ceftazidime for Klebsiella bacteremia and UTI. Repeat blood cultures still pending Blood pressure is borderline, no need for pressors Continue on normal saline 75 mL/h Continue on metoprolol, amiodarone and Eliquis for A. fib which cardiology saw the case Discontinue Krishnamurthy catheter today and rechecked bladder scan was 119, ordered to check bladder scan again tomorrow morning Urologist on the case Physical therapist evaluation in the morning 07/05/2022 Patient is seen in follow-up today and multiple medical consultations were following and patient found to have Klebsiella bacteremia with ESBL is likely se condary to urinary tract infection and maintained on IV antibiotics in the form of ceftazidime. Most recent blood culture is pending although previous blood cultures were showing ESBL Klebsiella and will consult infectious disease and appreciate input and recommendations. Will discuss further with case management to arrange for possible IV antibiotic therapy in the outpatient setting. Patient lives in an assisted living and has some care and will discuss further about discharge planning. Patient continues with weakness and reports has not been getting up out of the bed and is having some lower extremity edema. Awaiting PT/OT therapy evaluation. Patient reports plan is to return back to the [facility] where she resides with her . Patient is currently afebrile denies chest pain or shortness of breath. No reports of nausea or vomiting and patient is tolerating diet. Patient reports to having some loose stools 1 and will obtain C. diff to rule out and will add Imodium as needed. Review of systems: Constitutional: No reports of fatigue, fever, or chills Cardiovascular: No reports of chest pain or palpitations Respiratory: No reports of shortness of breath or cough GI: No reports of nausea, vomiting, reports one loose stool yesterday and one today : No reports of dysuria or retention Neurovascular: reports of generalized weakness and some mild lower extremity edema noted All medications have been reviewed Active Medications Acetaminophen (Acetaminophen Tab 325 Mg Tab) 325 mg PO Q6HR PRN PRN Reason: Fever and/ or Pain Last Admin: 07/05/22 04:54 Dose: 325 mg Hydrocodone Bitart/Acetaminophen (Hydrocodone/Apap 5-325mg 1 Each Tab) 1 each PO Q6HR PRN PRN Reason: Severe Pain (Scale 7 to 10) Last Admin: 07/05/22 10:43 Dose: 1 each Albuterol/Ipratropium (Ipratropium-Albuterol 3 Ml Neb) 3 ml INHALATION RT-QID PRN PRN Reason: Shortness Of Breath Or Wheezing Last Admin: 07/01/22 08:07 Dose: 3 ml Albuterol/Ipratropium (Ipratropium-Albuterol 3 Ml Neb) 3 ml INHALATION RT-Q2H PRN PRN Reason: Shortness Of Breath Or Wheezing Amiodarone HCl (Amiodarone 200 Mg Tab) 400 mg PO BID [facility] Last Admin: 07/05/22 08:16 Dose: 400 mg Apixaban (Apixaban 5 Mg Tab) 5 mg PO BID [facility]; Protocol Last Admin: 07/05/22 08:16 Dose: 5 mg Calcium Carbonate/Glycine (Calcium Carbonate 500 Mg Chewable) 1,000 mg PO TID [facility] Last Admin: 07/05/22 08:17 Dose: Not Given Cholecalciferol (Cholecalciferol 125 Mcg (5000 Iu) Tablet) 125 mcg PO DAILY [facility] Stop: 07/12/22 11:46 Last Admin: 07/05/22 08:16 Dose: 125 mcg Cholecalciferol (Cholecalciferol 25 Mcg (1000 Iu) Tablet) 50 mcg PO DAILY [facility] Famotidine (Famotidine 20 Mg/2 Ml Vial) 20 mg IV HS [facility] Last Admin: 07/04/22 20:37 Dose: 20 mg Fentanyl Citrate (Fentanyl (Pf) 50 Mcg/Ml 2 Ml Amp) 50 mcg IVP Q4HR PRN PRN Reason: Severe Pain (Scale 7 to 10) Last Admin: 07/01/22 07:48 Dose: 50 mcg Ceftazidime/Avibactam 1.25 gm/ (Sodium Chloride) 100 mls @ 50 mls/hr IVPB Q8H [facility] Last Admin: 07/05/22 12:43 Dose: 50 mls/hr Sodium Chloride (Saline 0.9%) 1,000 mls @ 20 mls/hr IV .Q24H [facility] Last Admin: 07/05/22 08:56 Dose: 20 mls/hr Loperamide HCl (Loperamide 2 Mg Cap) 2 mg PO QID PRN PRN Reason: Diarrhea Metoprolol Tartrate (Metoprolol Tartrate 50 Mg Tab) 50 mg PO BID [facility] Last Admin: 07/05/22 08:16 Dose: 50 mg Miscellaneous Information (Magnesium Replacement Protocol 1 Each Misc) 1 each MISCELLANE DAILY PRN; Protocol PRN Reason: Per Protocol Miscellaneous Information (Potassium Replacement Protocol 1 Each Misc) 1 each MISCELLANE DAILY PRN; Protocol PRN Reason: Per Protocol Naloxone HCl (Naloxone 0.4 Mg/Ml 1 Ml Vial) 0.2 mg IV Q2M PRN PRN Reason: Opioid Reversal Ondansetron HCl (Ondansetron 4 Mg/2 Ml Vial) 4 mg IVP Q6HR PRN PRN Reason: Nausea And Vomiting Last Admin: 07/02/22 02:49 Dose: 4 mg Physical exam: GENERAL: The patient is alert and oriented x3, well-developed, well-nourished, obese HEENT: Pupils are round and equally reacting to light. EOMI. No scleral icterus. No conjunctival pallor. Normocephalic, atraumatic. No pharyngeal erythema. No thyromegaly. CARDIOVASCULAR: S1 and S2 muffled PULMONARY: Chest is clear to auscultation, no wheezing or crackles. ABDOMEN: Soft, nontender, nondistended, normoactive bowel sounds. No palpable organomegaly. Krishnamurthy catheter in place MUSCULOSKELETAL: No joint swelling or deformity. EXTREMITIES: No cyanosis, clubbing, or pedal edema. Generalized lower extremity edema NEUROLOGICAL: Gross neurological examination did not reveal any focal deficits. Diffusely weak SKIN: No rashes. no petechiae. Assessment: Septic shock secondary to acute urinary tract infection Acute urinary tract infection, present on admission secondary to Klebsiella with ESBL Bacteremia most likely secondary to above with ESBL noted Mild right hydronephrosis History of depression History of osteoporosis History of hypertension, currently hypotensive chronic kidney disease stage III Chronic right pleural effusion Generalized weakness with gait dysfunction GI prophylaxis DVT prophylaxis Full code Plan: Continued antibiotic, currently on ceftazidime, blood cultures are positive for Klebsiella with ESBL and will consult infectious disease and appreciate input and recommendations We'll discuss further with case management this patient will require IV antibiotics on discharge Follow-up repeat blood culture pulmonary/critical care team signed off the case as well as cardiology and urology recommending continuing with antibiotics with plans for surgical intervention Encouraged oral intake and increased activity as tolerated. Will have PT/OT evaluate the patient Will follow-up with repeat labs and discuss with case management about discharge planning patient will require antibiotics Possible discharge in 24-48 hours The impression and plan of care has been dictated by Shania Molina, Nurse Practitioner as directed. Dr. Ni MD I have performed a history and examination and MDM of this patient, discussed the same with the dictator, and agree with the dictator's assessment and plan as written ,documented as a scribe. Based on total visit time, I have performed more than 50% of the visit. Objective - Vital Signs Vital signs: Vital Signs Temp 97.8 F 07/05/22 07:27 Pulse 77 07/05/22 07:27 Resp 16 07/05/22 07:27 BP 140/77 07/05/22 07:27 Pulse Ox 94 L 07/05/22 07:27 FiO2 Intake & Output 07/04/22 07/05/22 07/05/22 18:59 06:59 18:59 Output Total 900 750 Balance -900 -750 Output: Urine 900 750 Other: Voiding Method Indwelling Catheter Indwelling Catheter - Labs CBC & Chem 7: 07/05/22 06:38 07/05/22 06:38 Labs: Abnormal Lab Results - Last 24 Hours (Table) 07/04/22 07/04/22 07/04/22 Range/Units 11:22 16:27 20:49 POC Glucose (mg/dL) 148 H 122 H 113 H (70-110) mg/dL Microbiology - Last 24 Hours (Table) 06/29/22 13:55 Blood Culture - Final Blood 07/01/22 11:28 Blood Culture - Preliminary Blood 06/29/22 13:55 Blood Culture Gram Stain - Final Blood Blood Culture - Preliminary Klebsiella pneumoniae 06/29/22 13:54 Urine Culture - Preliminary Urine,Voided Klebsiella pneumoniae
[2022-07-06] MEDS: CALCIUM CARBONATE 500 MG CHEWABLE PO SCH ×3 (08:26→22:24)
[2022-07-06] MEDS: CHOLECALCIFEROL 125 MCG (5000 IU) TABLET PO SCH (08:26)
[2022-07-06] MEDS: AMIODARONE 200 MG TAB PO SCH ×2 (08:26→21:13)
[2022-07-06] MEDS: METOPROLOL TARTRATE 50 MG TAB PO SCH ×2 (08:26→21:13)
[2022-07-06 11:11] LABS: Basophils # (A) 0.05 X 10*3/uL (0.00-0.10); Basophils % (A) 0.7 %; Eosinophils # (A) 0.42 X 10*3/uL (0.04-0.35); Eosinophils % (A) 5.5 %; HCT 27.7 % (37.2-46.3); HGB 8.4 g/dL (12.0-15.0); Immature Grans, Automated 1.2 %; Lymphocytes # (A) 1.96 X 10*3/uL (0.90-5.00); Lymphocytes % (A) 25.5 %; MCHC 30.3 g/dL (32.0-37.0); MCV 89.1 fL (80.0-97.0); Mean Platelet Volume 10.5 fL (9.5-12.2); Monocytes # (A) 0.99 X 10*3/uL (0.20-1.00); Monocytes % (A) 12.9 %; NRBC Per 100 WBC 0 /100 WBCS (0.0-0.0); Neutrophils # (A) 4.18 X 10*3/uL (1.80-7.70); Neutrophils % (A) 54.2 %; Platelet Count 217 X 10*3/uL (140-440); RBC 3.11 X 10*6/uL (4.10-5.20); RDW 18.6 % (11.5-14.5); WBC 7.69 X 10*3/uL (4.50-10.00)
[2022-07-06] MEDS: SODIUM CHLORIDE 0.9% 1,000 ML IV SCH (11:22)
[2022-07-06] MEDS: LOPERAMIDE 2 MG CAP PO PRN (11:58)
[2022-07-06 12:11] LABS: African American GFR (CKD) 71.8 (60.0-200.0); Anion Gap 6.2 mmol/L (10.00-18.00); BUN/Creat Ratio 15.72 Ratio (12.00-20.00); Blood Urea Nitrogen 14.6 mg/dL (9.0-27.0); Calcium 7.2 mg/dL (8.7-10.3); Non-African American GFR(CKD) 61.9 (60.0-200.0); Potassium 4.2 mmol/L (3.5-5.5)
[2022-07-06] MEDS: HYDROcodone/APAP 5-325MG 1 EACH TAB PO PRN (13:52)
[2022-07-06 20:25] LABS: Glucose,Whole Blood 110 mg/dL (70-110)
[2022-07-06] MEDS: APIXABAN 5 MG TAB PO SCH (21:13)
[2022-07-06] MEDS: FAMOTIDINE 20 MG/2 ML VIAL IV SCH (21:36)
[2022-07-07] MEDS: HYDROcodone/APAP 5-325MG 1 EACH TAB PO PRN ×3 (01:35→15:00)
[2022-07-07] MEDS: CEFTAZIDIME/AVIBACTAM 1.25 GM in SODIUM CHLORIDE 0.9% 100 ML IVPB SCH (04:40)
[2022-07-07] MEDS: ACETAMINOPHEN TAB 325 MG TAB PO PRN (05:11)
--- NOTE | 2022-07-07 05:40 | P.PN ---
Subjective Progress Note Date: 07/06/22 This is a pleasant 71 years old female with past medical history depression, osteoporosis, pleural effusion, hypertension Patient presents because of right lower quadrant abdominal pain 1-2 days' duration radiating to the back mild to moderate in severity associated with some nausea and generalized weakness. Patient denies chest pain or dyspnea. No change in mental status. No recent fall. She denies smoking alcohol or illicit drugs On admission she was hypotensive with blood pressure 80/52. Currently blood pressure 118/68. The blood pressure improved Also patient had a fever of 102.6 last night She has marked leukocytosis with 12.3 hemoglobin 11.1, platelet count normal. Electrolytes this morning are normal. Creatinine went up slightly 1.28 Glucose 78, calcium low 6.3. Bilirubin and liver enzymes are unremarkable. Urinalysis is suspicious for infection EKG: Sinus tachycardia at [address]-T changes, left axis deviation and poor progression of R-wave, similar to old EKG CT of the abdomen and pelvis with contrast, moderate right hydronephrosis with no hydroureter and perinephric stranding Chest x-ray reviewed by myself showing right pleural effusion and cardiomegaly Of vancomycin and normal saline. Also she started on Lopressor 07/01/2022 Patient awake and alert but slightly lethargic. She's been complaining of from mild headache and tremor in her hand but no overt weakness or numbness. She's feeling nausea she says some popsicles this morning that went real, she feels hungry and she was nausea medicine and see if she can start eating. No chest pain or dyspnea. No abdominal pain. No diarrhea. She remains on small dose of Levophed at 0.03 also she is on sodium bicarbonate 100 mL per hour and Blood culture from 2 days ago came back positive for Klebsiella. We are going to repeat blood culture today to confirm clearance 07/02/2022 Patient is awake and alert, she denies any specific complaints, she is somewhat generally weak but mentation is normal, no much respiratory symptoms, no much urinary symptoms. Krishnamurthy catheter is in place. She still needs pressors and today she needs her dose of levophed at 0.07. She remains on ceftazidime and blood culture is growing Klebsiella pneumoniae. Urine culture showing gram-negative bacilli pending final results. She remains on ceftazidime. repeat blood culture from yesterday is pending. She is also on normal saline 75 mL/h Cardiology on the case for her A. fib, rate controlled currently she is on Eliquis 5 mg, amiodarone 400 mg and metoprolol 50 mg She has low calcium and phosphorus and high PTH consistent with vitamin D deficiency with level less than 5, replacement is a started. Follow-up renal ultrasound 07/03/2022 Patient is doing well, she is up in bed and eating well Her sepsis have improved and she does not need any pressors anymore. IV fluids stopped and she received 1 dose of IV Lasix. Remains on ceftazidime for Klebsiella bacteremia and Klebsiella UTI. Repeat blood cultures pending. She remains on Eliquis, amiodarone and metoprolol. Patient will need cardioversion of her A. fib with RVR persistent after sepsis resolved. She has evidence of hemoglobin delusion with WBCs back to normal at 9.2, hemoglobin 8.6. Creatinine improving. She has evidence of hypocalcemia secondary to vitamin D deficiency place on replacement therapy Patient is transferred to the general medical floor today 07/04/2022 Patient improving every day slowly and gradually, she has good appetite and she is awake and she denies any new symptom. She remains on the same antibiotic ceftazidime for Klebsiella bacteremia and UTI. Repeat blood cultures still pending Blood pressure is borderline, no need for pressors Continue on normal saline 75 mL/h Continue on metoprolol, amiodarone and Eliquis for A. fib which cardiology saw the case Discontinue Krishnamurthy catheter today and rechecked bladder scan was 119, ordered to check bladder scan again tomorrow morning Urologist on the case Physical therapist evaluation in the morning 07/05/2022 Patient is seen in follow-up today and multiple medical consultations were following and patient found to have Klebsiella bacteremia with ESBL is likely se condary to urinary tract infection and maintained on IV antibiotics in the form of ceftazidime. Most recent blood culture is pending although previous blood cultures were showing ESBL Klebsiella and will consult infectious disease and appreciate input and recommendations. Will discuss further with case management to arrange for possible IV antibiotic therapy in the outpatient setting. Patient lives in an assisted living and has some care and will discuss further about discharge planning. Patient continues with weakness and reports has not been getting up out of the bed and is having some lower extremity edema. Awaiting PT/OT therapy evaluation. Patient reports plan is to return back to the [facility] where she resides with her . Patient is currently afebrile denies chest pain or shortness of breath. No reports of nausea or vomiting and patient is tolerating diet. Patient reports to having some loose stools 1 and will obtain C. diff to rule out and will add Imodium as needed. 07/06/2022 Patient is seen in follow-up today maintained on IV antibiotics with infectious disease now following awaiting midline placement as patient will require IV antibiotics outpatient. Patient with some weakness and requiring further needs is now agreeable to rehab with case management following and has been making arrangements for outpatient IV antibiotics. Patient being followed by physical therapy and would recommend daily. Will discuss further with infectious disease about discharge planning. Patient is currently afebrile with no reports of nausea or vomiting. Patient is tolerating diet and denies any further diarrhea today. Patient denies chest pain or shortness of breath and like to go home. Patient resides in the [facility] home Review of systems: Constitutional: No reports of fatigue, fever, or chills Cardiovascular: No reports of chest pain or palpitations Respiratory: No reports of shortness of breath or cough GI: No reports of nausea, vomiting, reports improvement in bowel movement : No reports of dysuria or retention Neurovascular: reports of generalized weakness and some mild lower extremity edema noted All medications have been reviewed Active Medications Acetaminophen (Acetaminophen Tab 325 Mg Tab) 325 mg PO Q6HR PRN PRN Reason: Fever and/ or Pain Last Admin: 07/07/22 05:11 Dose: 325 mg Hydrocodone Bitart/Acetaminophen (Hydrocodone/Apap 5-325mg 1 Each Tab) 1 each PO Q6HR PRN PRN Reason: Severe Pain (Scale 7 to 10) Last Admin: 07/07/22 01:35 Dose: 1 each Albuterol/Ipratropium (Ipratropium-Albuterol 3 Ml Neb) 3 ml INHALATION RT-QID PRN PRN Reason: Shortness Of Breath Or Wheezing Last Admin: 07/01/22 08:07 Dose: 3 ml Albuterol/Ipratropium (Ipratropium-Albuterol 3 Ml Neb) 3 ml INHALATION RT-Q2H PRN PRN Reason: Shortness Of Breath Or Wheezing Amiodarone HCl (Amiodarone 200 Mg Tab) 400 mg PO BID [facility] Last Admin: 07/06/22 21:13 Dose: 400 mg Apixaban (Apixaban 5 Mg Tab) 5 mg PO BID [facility]; Protocol Last Admin: 07/06/22 21:13 Dose: 5 mg Calcium Carbonate/Glycine (Calcium Carbonate 500 Mg Chewable) 1,000 mg PO TID [facility] Last Admin: 07/06/22 22:24 Dose: Not Given Cholecalciferol (Cholecalciferol 125 Mcg (5000 Iu) Tablet) 125 mcg PO DAILY [facility] Stop: 07/12/22 11:46 Last Admin: 07/06/22 08:26 Dose: 125 mcg Cholecalciferol (Cholecalciferol 25 Mcg (1000 Iu) Tablet) 50 mcg PO DAILY [facility] Famotidine (Famotidine 20 Mg/2 Ml Vial) 20 mg IV HS [facility] Last Admin: 07/06/22 21:36 Dose: 20 mg Fentanyl Citrate (Fentanyl (Pf) 50 Mcg/Ml 2 Ml Amp) 50 mcg IVP Q4HR PRN PRN Reason: Severe Pain (Scale 7 to 10) Last Admin: 07/01/22 07:48 Dose: 50 mcg Ceftazidime/Avibactam 1.25 gm/ (Sodium Chloride) 100 mls @ 50 mls/hr IVPB Q8H [facility] Last Admin: 07/07/22 04:40 Dose: 50 mls/hr Sodium Chloride (Saline 0.9%) 1,000 mls @ 20 mls/hr IV .Q24H [facility] Last Admin: 07/06/22 11:22 Dose: Not Given Loperamide HCl (Loperamide 2 Mg Cap) 2 mg PO QID PRN PRN Reason: Diarrhea Last Admin: 07/06/22 11:58 Dose: 2 mg Metoprolol Tartrate (Metoprolol Tartrate 50 Mg Tab) 50 mg PO BID [facility] Last Admin: 07/06/22 21:13 Dose: 50 mg Miscellaneous Information (Magnesium Replacement Protocol 1 Each Misc) 1 each MISCELLANE DAILY PRN; Protocol PRN Reason: Per Protocol Miscellaneous Information (Potassium Replacement Protocol 1 Each Misc) 1 each MISCELLANE DAILY PRN; Protocol PRN Reason: Per Protocol Naloxone HCl (Naloxone 0.4 Mg/Ml 1 Ml Vial) 0.2 mg IV Q2M PRN PRN Reason: Opioid Reversal Ondansetron HCl (Ondansetron 4 Mg/2 Ml Vial) 4 mg IVP Q6HR PRN PRN Reason: Nausea And Vomiting Last Admin: 07/02/22 02:49 Dose: 4 mg Physical exam: GENERAL: The patient is alert and oriented x3, well-developed, well-nourished, obese HEENT: Pupils are round and equally reacting to light. EOMI. No scleral icterus. No conjunctival pallor. Normocephalic, atraumatic. No pharyngeal erythema. No th yromegaly. CARDIOVASCULAR: S1 and S2 muffled PULMONARY: Chest is clear to auscultation, no wheezing or crackles. ABDOMEN: Soft, nontender, nondistended, normoactive bowel sounds. No palpable organomegaly. Krishnamurthy catheter in place MUSCULOSKELETAL: No joint swelling or deformity. EXTREMITIES: No cyanosis, clubbing, or pedal edema. Generalized lower extremity edema NEUROLOGICAL: Gross neurological examination did not reveal any focal deficits. Diffusely weak SKIN: No rashes. no petechiae. Assessment: Septic shock secondary to acute urinary tract infection Acute urinary tract infection, present on admission secondary to Klebsiella with ESBL Bacteremia most likely secondary to above with ESBL noted Mild right hydronephrosis History of depression History of osteoporosis History of hypertension, currently hypotensive chronic kidney disease stage III Chronic right pleural effusion Generalized weakness with gait dysfunction GI prophylaxis DVT prophylaxis Full code Plan: Continued antibiotic, currently on ceftazidime, blood cultures are positive for Klebsiella with ESBL with infectious disease now following making recommendations for discharge antibiotics. Patient will receive a midline and will need outpatient IV antibiotic therapy. Case management following this patient as she will require IV antibiotics on discharge and making arrangements and patient now agreeable to rehab. Patient requiring insurance authorization Follow-up repeat blood culture pulmonary/critical care team signed off the case as well as cardiology and urology recommending continuing with antibiotics with plans for surgical intervention Encouraged oral intake and increased activity as tolerated. Recommend PT/OT daily Will follow-up with repeat labs and discuss with case management about discharge planning patient will require antibiotics Possible discharge in 24-48 hours The impression and plan of care has been dictated by Shania Molina, Nurse Practitioner as directed. Dr. Carlos A MD I have performed a history and examination and MDM of this patient, discussed the same with the dictator, and agree with the dictator's assessment and plan as written ,documented as a scribe. Based on total visit time, I have performed more than 50% of the visit. Objective - Vital Signs Vital signs: Vital Signs Temp 98 F 07/07/22 01:32 Pulse 69 07/07/22 01:32 Resp 18 07/07/22 01:32 BP 119/75 07/07/22 01:32 Pulse Ox 94 L 07/07/22 01:32 FiO2 Intake & Output 07/06/22 07/06/22 07/07/22 06:59 18:59 06:59 Intake Total 720 100 Output Total 700 Balance 20 100 Intake: IV 100 Ceftazidime/Avibactam 1. 100 25 gm In Sodium Chloride 0.9% 100 ml @ 50 mls/hr IVPB Q8H [facility] Rx#: [id number] Oral 720 Output: Urine 700 Other: # Voids 1 # Bowel Movements 1 1 - Labs CBC & Chem 7: 07/06/22 08:00 07/06/22 08:00 Labs: Abnormal Lab Results - Last 24 Hours (Table) 07/06/22 07/06/22 Range/Units 08:00 08:00 RBC 3.11 L (4.10-5.20) X 10*6/uL Hgb 8.4 L (12.0-15.0) g/dL Hct 27.7 L (37.2-46.3) % MCHC 30.3 L (32.0-37.0) g/dL RDW 18.6 H (11.5-14.5) % Immature Gran # 0.09 H (0.00-0.04) X 10*3/uL Eosinophils # 0.42 H (0.04-0.35) X 10*3/uL Anion Gap 6.20 L (10.00-18.00) mmol/L Calcium 7.2 L (8.7-10.3) mg/dL Microbiology - Last 24 Hours (Table) 07/01/22 11:28 Blood Culture - Preliminary Blood
[2022-07-07 06:05] LABS: Glucose,Whole Blood 106 mg/dL (70-110)
[2022-07-07] MEDS: AMIODARONE 200 MG TAB PO SCH (08:42)
[2022-07-07] MEDS: METOPROLOL TARTRATE 50 MG TAB PO SCH (08:42)
[2022-07-07] MEDS: CHOLECALCIFEROL 125 MCG (5000 IU) TABLET PO SCH (08:42)
[2022-07-07] MEDS: APIXABAN 5 MG TAB PO SCH (08:42)
[2022-07-07] MEDS ORDERED: CALCIUM CARBONATE 500 MG CHEWABLE PO SCH (09:00)
[2022-07-07 11:43] LABS: Glucose,Whole Blood 88 mg/dL (70-110)
[2022-07-07] MEDS: SODIUM CHLORIDE 0.9% 1,000 ML IV SCH (11:43)
--- NOTE | 2022-07-07 13:46 | P.DS ---
Providers Date of admission: 06/29/22 19:02 Expected date of discharge: 07/07/22 Attending physician: Rocio Strauss Consults: 06/30/22 00:07 Consult Physician Routine Consulting Provider: Yulisa Ventura Consult Reason/Comments: hypotension Do you want consulting provider notified?: Already Contacted 06/30/22 11:38 Consult Physician Stat Consulting Provider: Pierre Chaves Consult Reason/Comments: hydonephrosis Do you want consulting provider notified?: Yes 07/05/22 15:08 Consult Physician Urgent Consulting Provider: Mitch Francis Consult Reason/Comments: klebsiella bacteremia with esbl Do you want consulting provider notified?: Yes Primary care physician: Anthony Srinivasan Hospital Course: Final diagnosis Septic shock secondary to acute urinary tract infection Acute urinary tract infection, present on admission secondary to Klebsiella with ESBL Bacteremia most likely secondary to above with ESBL noted Mild right hydronephrosis History of depression History of osteoporosis History of hypertension, currently hypotensive chronic kidney disease stage III Chronic right pleural effusion Generalized weakness with gait dysfunction GI prophylaxis DVT prophylaxis Full code Discharge disposition Patient is being discharged in a stable condition with guarded prognosis to [facility]. Patient will follow-up with Dr. Srinivasan in the outpatient setting upon discharge. Patient is to continue with IV antibiotics per ID recommendations in the form of Zerbaxa as scheduled for the next 10 days and recommend outpatient cardiology follow-up in 2 weeks. Total time taken is greater than 35 minutes. Hospital course This is a 71-year-old female who was recently admitted with urinary tract infection with sepsis and being closely monitored with multiple medical consultations. Patient did have features of sepsis with septic shock and hypotension closely monitored in the ICU for some time. Patient with significant weakness and physical therapy evaluated the patient recommending rehab. Initially patient declined and would like to return to her [facility] home although they cannot accommodate IV antibiotic treatment. Case management following an patient has been accepted at [facility] and patient will continue on IV antibiotics in the form of Zerbaxa for the next 10 days per ID recommendations to complete the course. Patient's urine cultures along with b lood cultures showed Klebsiella pneumonia with ESBL. Patient also evaluated by urology and does have indwelling Krishnamurthy catheter. Patient to follow-up with urology as well as cardiology in the outpatient setting. Patient has been cleared by consultations. Please refer to other consultation notes for further HPI. Currently no reports of chest pain, shortness of breath, or palpitations. Patient is afebrile. No reports of nausea or vomiting and patient is tolerating diet. Patient will be going to [facility] today. Guarded prognosis. Physical exam: Gen: This is a 71-year-old female who is awake, alert and oriented 3, well- developed, well-nourished, obese HEENT: Head is atraumatic, normocephalic. Pupils equal, round. Sclerae is anicteric. NECK: Supple. No JVD. No lymphadenopathy. No thyromegaly. LUNGS: Diminished breath sounds bilaterally with no wheezes or rhonchi. No intercostal retractions. HEART: S1, S2 are muffled ABDOMEN: Soft. Obese. Bowel sounds are present. No masses. No tenderness. EXTREMITIES: Some mild pedal edema noted. No calf tenderness. NEUROLOGICAL: Patient is awake, alert and oriented x3. Cranial nerves 2 through 12 are grossly intact. Diffusely weak Please refer to medication reconciliation sheet for a list of medications. The impression and plan of care has been dictated by Shania Molina, Nurse Practitioner as directed. Dr. Carlos A MD I have performed a history and examination and MDM of this patient, discussed the same with the dictator, and agree with the dictator's assessment and plan as written ,documented as a scribe. Based on total visit time, I have performed more than 50% of the visit. Patient Condition at Discharge: Fair Plan - Discharge Summary Discharge Rx Participant: No New Discharge Prescriptions: New Apixaban [Eliquis] 5 mg PO BID #60 tab Ipratropium-Albuterol Nebulize [Duoneb 0.5 mg-3 mg/3 ml Soln] 3 ml INHALATION RT-Q2H PRN each PRN Reason: Shortness Of Breath Or Wheezing Ipratropium-Albuterol Nebulize [Duoneb 0.5 mg-3 mg/3 ml Soln] 3 ml INHALATION RT-QID PRN each PRN Reason: Shortness Of Breath Or Wheezing HYDROcodone/APAP 5-325MG [[place] 5-325] 1 each PO Q6HR PRN #4 tab PRN Reason: Severe Pain (Scale 7 To 10) Famotidine [Pepcid] 20 mg PO BID #60 tablet Calcium Carbonate [Tums] 1,000 mg PO BID tab Ceftolozane/Tazobactam [Zerbaxa 1.5 Gram Vial] 1.5 gm IVPB Q8HR 10 Days #30 each Amiodarone [Cordarone] 400 mg PO BID #180 tab Loperamide [Imodium] 2 mg PO QID PRN cap PRN Reason: Diarrhea Acetaminophen Tab [Tylenol] 325 mg PO Q6HR PRN tab PRN Reason: Fever And/ Or Pain Cholecalciferol [Vitamin D3 (125 Mcg = 5000 Iu)] 125 mcg PO DAILY tab Continue Oxybutynin Chloride 5 mg PO BID Metoprolol Tartrate [Lopressor] 50 mg PO BID Albuterol Sulfate [Albuterol Sulfate Hfa] 2 puff PO RT-QID PRN PRN Reason: Shortness Of Breath Alendronate Sodium [Fosamax] 70 mg PO WE Benzonatate [Tessalon Perles] 100 mg PO TID PRN PRN Reason: Cough Discontinued buPROPion XL [Wellbutrin XL] 150 mg PO DAILY Discharge Medication List Oxybutynin Chloride 5 mg PO BID 05/15/18 [History] Metoprolol Tartrate [Lopressor] 50 mg PO BID 02/28/20 [History] Albuterol Sulfate [Albuterol Sulfate Hfa] 2 puff PO RT-QID PRN 06/29/22 [History] Alendronate Sodium [Fosamax] 70 mg PO WE 06/29/22 [History] Benzonatate [Tessalon Perles] 100 mg PO TID PRN 06/29/22 [History] Amiodarone [Cordarone] 400 mg PO BID #180 tab 07/05/22 [Rx] Apixaban [Eliquis] 5 mg PO BID #60 tab 07/05/22 [Rx] Acetaminophen Tab [Tylenol] 325 mg PO Q6HR PRN tab 07/07/22 [Rx] Calcium Carbonate [Tums] 1,000 mg PO BID tab 07/07/22 [Rx] Ceftolozane/Tazobactam [Zerbaxa 1.5 Gram Vial] 1.5 gm IVPB Q8HR 10 Days #30 each 07/07/22 [Rx] Cholecalciferol [Vitamin D3 (125 Mcg = 5000 Iu)] 125 mcg PO DAILY tab 07/07/22 [Rx] Famotidine [Pepcid] 20 mg PO BID #60 tablet 07/07/22 [Rx] HYDROcodone/APAP 5-325MG [[place] 5-325] 1 each PO Q6HR PRN #4 tab 07/07/22 [Rx] Ipratropium-Albuterol Nebulize [Duoneb 0.5 mg-3 mg/3 ml Soln] 3 ml INHALATION RT-Q2H PRN each 07/07/22 [Rx] Ipratropium-Albuterol Nebulize [Duoneb 0.5 mg-3 mg/3 ml Soln] 3 ml INHALATION RT-QID PRN each 07/07/22 [Rx] Loperamide [Imodium] 2 mg PO QID PRN cap 07/07/22 [Rx] Follow up Appointment(s)/Referral(s): Brad Bermudez MD [STAFF PHYSICIAN] - 2 Weeks (Office will call patient for appointment time and date.) Anthony Srinivasan DO [Primary Care Provider] - 1-2 days (Please call for appointment.) Patient Instructions/Handouts: Urinary Tract Infection in Women (DC), Hyperkalemia (DC), Bacteremia (DC) Activity/Diet/Wound Care/Special Instructions: Patient is going to [facility] Activity as tolerated Continue with antibiotics for 10 days Continue renal diet low potassium, low phosphorus, low sodium Recommend outpatient follow-up with urology and infectious disease Discharge Disposition: TRANSFER TO SNF/F
--- NOTE | 2022-07-07 13:59 | P.PN ---
Subjective Progress Note Date: 07/06/22 Principal diagnosis: CRE Klebsiella bacteremia and UTI Patient is a 71-year-old female presented to the hospital about a week ago on 06/29/2022 for evaluation of right lower quadrant abdominal pain, patient did have a CT of abdominal pelvis moderate right-sided hydronephrosis without hydroureter and perinephric stranding, the patient blood and urine has been positive for CRE Klebsiella on today's evaluation that is 07/06/2022, the patient denies having any fever or rigors, the patient is breathing comfortably on room air, the patient denies chest pain shortness of breath or cough no abdominal pain or diarrhea Objective - Vital Signs Vital signs: Vital Signs Temp 97.3 F L 07/06/22 07:02 Pulse 69 07/06/22 07:02 Resp 16 07/06/22 07:02 BP 126/83 07/06/22 07:02 Pulse Ox 96 07/06/22 09:18 FiO2 Intake & Output 07/05/22 07/06/22 07/06/22 18:59 06:59 18:59 Intake Total 100 720 Output Total 1400 700 Balance -1300 20 Weight 88.1 kg Intake: IV 100 Ceftazidime/Avibactam 1. 100 25 gm In Sodium Chloride 0.9% 100 ml @ 50 mls/hr IVPB Q8H COUNT INCLUDES THE [facility] Rx#: [id number] Oral 720 Output: Urine 1400 700 Other: Voiding Method External Catheter # Voids 1 # Bowel Movements 1 1 2 - Exam GENERAL DESCRIPTION: An elderly female lying in bed in no distress RESPIRATORY SYSTEM: Unlabored breathing , decreased breath sounds at bases HEART: S1 S2 regular rate and rhythm , ABDOMEN: Soft , no tenderness EXTREMITIES: 2+ edema feet - Labs CBC & Chem 7: 07/06/22 08:00 07/06/22 08:00 Labs: Abnormal Lab Results - Last 24 Hours (Table) 07/05/22 07/05/22 07/06/22 Range/Units 16:41 20:44 04:38 RBC (4.10-5.20) X 10*6/uL Hgb (12.0-15.0) g/dL Hct (37.2-46.3) % MCHC (32.0-37.0) g/dL RDW (11.5-14.5) % Immature Gran # (0.00-0.04) X 10*3/uL Eosinophils # (0.04-0.35) X 10*3/uL Anion Gap (10.00-18.00) mmol/L POC Glucose (mg/dL) 128 H 158 H 114 H (70-110) mg/dL Calcium (8.7-10.3) mg/dL 07/06/22 07/06/22 Range/Units 08:00 08:00 RBC 3.11 L (4.10-5.20) X 10*6/uL Hgb 8.4 L (12.0-15.0) g/dL Hct 27.7 L (37.2-46.3) % MCHC 30.3 L (32.0-37.0) g/dL RDW 18.6 H (11.5-14.5) % Immature Gran # 0.09 H (0.00-0.04) X 10*3/uL Eosinophils # 0.42 H (0.04-0.35) X 10*3/uL Anion Gap 6.20 L (10.00-18.00) mmol/L POC Glucose (mg/dL) (70-110) mg/dL Calcium 7.2 L (8.7-10.3) mg/dL Microbiology - Last 24 Hours (Table) 07/01/22 11:28 Blood Culture - Preliminary Blood 06/29/22 13:55 Blood Culture - Final Blood Assessment and Plan (1) Sepsis Current Visit: Yes Status: Acute Code(s): A41.9 - SEPSIS, UNSPECIFIED ORGANISM SNOMED Code(s): 07299821 (2) UTI (urinary tract infection) Current Visit: Yes Status: Acute Code(s): N39.0 - URINARY TRACT INFECTION, SITE NOT SPECIFIED SNOMED Code(s): 58588755 Plan: 1patient presented to hospital with sepsis secondary to complicated left-sided UTI/pyelonephritis in this patient blood as well as urine culture been finalized with multidrug-resistant Klebsiella 2-patient currently on Avycaz however can be switched over to Zerbexa if the calvo is an issue on discharge Time with Patient: Less than 30
[2022-07-07] MEDS ORDERED: CEFTOLOZANE/TAZOBACTAM 1.5 GM in SODIUM CHLORIDE 0.9% 100 ML IV SCH (14:00)
--- NOTE | 2022-07-07 14:00 | P.PN ---
Subjective Progress Note Date: 07/07/22 Principal diagnosis: CRE Klebsiella bacteremia and UTI Patient is a 71-year-old female presented to the hospital about a week ago on 06/29/2022 for evaluation of right lower quadrant abdominal pain, patient did have a CT of abdominal pelvis moderate right-sided hydronephrosis without hydroureter and perinephric stranding, the patient blood and urine has been positive for CRE Klebsiella on today's evaluation that is 07/07/2022, the patient remains to be afebrile, the patient is breathing comfortably on room air, the patient denies chest pain shortness of breath or cough no abdominal pain or diarrhea, no new symptoms Objective - Vital Signs Vital signs: Vital Signs Temp 97.4 F L 07/07/22 07:15 Pulse 68 07/07/22 07:15 Resp 17 07/07/22 07:15 BP 126/77 07/07/22 07:15 Pulse Ox 97 07/07/22 09:08 FiO2 21 07/07/22 09:08 Intake & Output 07/06/22 07/07/22 07/07/22 18:59 06:59 18:59 Intake Total 100 Output Total 850 Balance 100 -850 Intake: IV 100 Ceftazidime/Avibactam 1. 100 25 gm In Sodium Chloride 0.9% 100 ml @ 50 mls/hr IVPB Q8H [facility] Rx#: [id number] Output: Urine 850 Other: # Voids 2 # Bowel Movements 1 - Exam GENERAL DESCRIPTION: An elderly female lying in bed in no distress RESPIRATORY SYSTEM: Unlabored breathing , decreased breath sounds at bases HEART: S1 S2 regular rate and rhythm , ABDOMEN: Soft , no tenderness EXTREMITIES: 2+ edema feet - Labs CBC & Chem 7: 07/06/22 08:00 07/06/22 08:00 Labs: Microbiology - Last 24 Hours (Table) 07/01/22 11:28 Blood Culture - Final Blood 07/05/22 16:03 Blood Culture - Preliminary Blood Assessment and Plan (1) Sepsis Current Visit: Yes Status: Acute Code(s): A41.9 - SEPSIS, UNSPECIFIED OR GANISM SNOMED Code(s): 24853662 (2) UTI (urinary tract infection) Current Visit: Yes Status: Acute Code(s): N39.0 - URINARY TRACT INFECTION, SITE NOT SPECIFIED SNOMED Code(s): 41679964 Plan: 1patient presented to hospital with sepsis secondary to complicated left-sided UTI/pyelonephritis in this patient blood as well as urine culture been finalized with multidrug-resistant Klebsiella 2-patient has cleared her bacteremia the patient antibiotic will be switched over to Zerbexa , because of the calvo issue as per discussion with the case management director to continue for another 10 days on discharge Time with Patient: Less than 30
[2022-07-07] MEDS: LOPERAMIDE 2 MG CAP PO PRN (14:12)
[2022-07-07 14:52] VITALS: BP 126/80; PULSE 65; RESP 16; TEMP 98.3
[2022-07-13] MEDS ORDERED: CHOLECALCIFEROL 25 MCG (1000 IU) TABLET PO SCH (09:00)
== END 2022-07-07 16:50 | DRG 871 ==
LOC: EC 13:21 → 4SSUR 19:02 → 2SICU 23:58 → 4SSUR 07-03 16:08
PROVIDERS: ADMIT Hospitalist; ATTEND Hospitalist
PROC: 3E033XZ Introduction of Vasopressor into Peripheral Vein, Percutaneous Approach (ICD-10-PCS; principal; 2022-07-01)
DX: A41.50 Gram-negative sepsis, unspecified (principal); J96.01 Acute respiratory failure with hypoxia; R65.21 Severe sepsis with septic shock; J90 Pleural effusion, not elsewhere classified; I42.8 Other cardiomyopathies; I48.20 Chronic atrial fibrillation, unspecified; Q62.39 Other obstructive defects of renal pelvis and ureter; Z16.12 Extended spectrum beta lactamase (ESBL) resistance; N13.6 Pyonephrosis; I27.20 Pulmonary hypertension, unspecified; F22 Delusional disorders; E11.42 Type 2 diabetes mellitus with diabetic polyneuropathy; I13.10 Hypertensive heart and chronic kidney disease without heart failure, with stage 1 through stage 4 chronic kidney disease, or unspecified chronic kidney disease; E11.22 Type 2 diabetes mellitus with diabetic chronic kidney disease; E87.8 Other disorders of electrolyte and fluid balance, not elsewhere classified; N18.31 Chronic kidney disease, stage 3a; F32.A Depression, unspecified; E66.01 Morbid (severe) obesity due to excess calories; I07.1 Rheumatic tricuspid insufficiency; M81.0 Age-related osteoporosis without current pathological fracture; R53.1 Weakness; B96.1 Klebsiella pneumoniae [K. pneumoniae] as the cause of diseases classified elsewhere; R25.1 Tremor, unspecified; I48.0 Paroxysmal atrial fibrillation; E55.9 Vitamin D deficiency, unspecified; R60.0 Localized edema; R94.6 Abnormal results of thyroid function studies; M19.90 Unspecified osteoarthritis, unspecified site; E87.5 Hyperkalemia; Z68.36 Body mass index [BMI] 36.0-36.9, adult; Z88.0 Allergy status to penicillin; Z88.2 Allergy status to sulfonamides; Z88.5 Allergy status to narcotic agent; Z79.83 Long term (current) use of bisphosphonates; Z79.899 Other long term (current) drug therapy; Z87.440 Personal history of urinary (tract) infections; Z79.01 Long term (current) use of anticoagulants; Z87.442 Personal history of urinary calculi; Z86.19 Personal history of other infectious and parasitic diseases
CPT/HCPCS: 36410; 36415; 51702; 71045; 74177; 76770; 76937; 80048; 80053; 80076; 81001; 82306; 82330; 82533; 83605; 83690; 83735; 83880; 83970; 84100; 84439; 84443; 84484; 85025; 85610; 85730; 87077; 87086; 87186; 87324; 87635; 93005; 93306; 94640; 94760; 96361; 96365; 96366; 96367; 96368; 96372; 96375; 96376; 99285

== ENCOUNTER 2022-08-14 17:59 | Emergency (ER) | payer MEDICARE ==
[2022-08-14 18:07] VITALS: TEMP 97.6
[2022-08-14] MEDS ORDERED: SODIUM CHLORIDE 0.9% 500 ML 500 ML IV ONE ×2 (19:19→21:47)
--- NOTE | 2022-08-14 19:26 | ED ---
General Adult HPI - General Chief complaint: Nausea/Vomiting/Diarrhea Stated complaint: diarrhea, neck pain Time Seen by Provider: 08/14/22 19:04 Source: patient Mode of arrival: ambulatory Limitations: no limitations - History of Present Illness Initial comments: Patient presents to the ED with her for evaluation. Patient states that she has had 2-3 bouts of watery diarrhea daily for the past 2 days. Patient also states that she has developed "muscle aches" in her posterior neck and posterior shoulders bilaterally. Patient denies known sick contact or recent travel abroad. Patient denies trauma/injury/fall, fever or chills, headache, focal neuro deficit, chest pain or pressure, dyspnea, cough or cold symptoms, palpitations, dizziness, abdominal pain, nausea or vomiting, constipation, bloody or melanotic stool dysuria/hematuria/urinary frequency/urinary symptoms, leg or calf swelling or pain, or any other symptoms or complaints. - Related Data Home Medications Medication Instructions Recorded Confirmed Oxybutynin Chloride 5 mg PO BID 05/15/18 08/14/22 Metoprolol Tartrate [Lopressor] 50 mg PO BID 02/28/20 08/14/22 Albuterol Sulfate [Albuterol 2 puff PO RT-QID PRN 06/29/22 08/14/22 Sulfate Hfa] Alendronate Sodium [Fosamax] 70 mg PO WE 06/29/22 08/14/22 Benzonatate [Tessalon Perles] 100 mg PO TID PRN 06/29/22 08/14/22 Amiodarone [Cordarone] 200 mg PO BID 08/14/22 08/14/22 Furosemide [Lasix] 20 mg PO DAILY 08/14/22 08/14/22 Previous Rx's Medication Instructions Recorded Apixaban [Eliquis] 5 mg PO BID #60 tab 07/05/22 Acetaminophen Tab [Tylenol] 325 mg PO Q6HR PRN tab 07/07/22 Calcium Carbonate [Tums] 1,000 mg PO BID tab 07/07/22 Cholecalciferol [Vitamin D3 (125 125 mcg PO DAILY tab 07/07/22 Mcg = 5000 Iu)] Famotidine [Pepcid] 20 mg PO BID #60 tablet 07/07/22 Ipratropium-Albuterol Nebulize 3 ml INHALATION RT-QID PRN each 07/07/22 [Duoneb 0.5 mg-3 mg/3 ml Soln] Loperamide [Imodium] 2 mg PO QID PRN cap 07/07/22 Allergies Allergy/AdvReac Type Severity Reaction Status Date / Time meperidine [From Demerol] AdvReac Nausea & Verified 08/14/22 21:19 Vomiting Penicillins AdvReac "FALLS Verified 08/14/22 21:19 ALOT"/Weakness Sulfa (Sulfonamide AdvReac Nausea & Verified 08/14/22 21:19 Antibiotics) Vomiting Review of Systems ROS Statement: Those systems with pertinent positive or pertinent negative responses have been documented in the HPI. ROS Other: All systems not noted in ROS Statement are negative. Past Medical History Past Medical History: Diabetes Mellitus, Hypertension, Neurologic Disorder Additional Past Medical History / Comment(s): NEUROPATHY, MIGRAINES, fractured right shoulder, urine MDRO History of Any Multi-Drug Resistant Organisms: CRE, ESBL Date of last positivie culture/infection: 06/29/22 CP-CRE & ESBL MDRO Source:: Blood and Ppdfs-VN-OAP/ESBL Past Surgical History: Bariatric Surgery, Bladder Surgery, Hysterectomy Additional Past Surgical History / Comment(s): ORAL SURGERY. COLONOSCOPY. LAP BAND THEN HAD BARIATRIC SURGERY;. bladder surgery may have been for a benign cyst but is not sure. 16 LBS ABD. TISSUE REMOVED Past Anesthesia/Blood Transfusion Reactions: No Reported Reaction Past Psychological History: Anxiety, Depression Smoking Status: Never smoker Past Alcohol Use History: None Reported Past Drug Use History: None Reported - Past Family History Mother Family Medical History: Diabetes Mellitus Additional Family Medical History / Comment(s): At [facility] with UTI. Father Family Medical History: CVA/TIA, Diabetes Mellitus Sister(s) Family Medical History: Deep Vein Thrombosis (DVT) General Exam Limitations: no limitations General appearance: alert, in no apparent distress Head exam: Present: normocephalic Eye exam: Present: normal appearance ENT exam: Present: mucous membranes moist Neck exam: Present: normal inspection, other (Trachea is in midline). Absent: tenderness, meningismus Respiratory exam: Present: normal lung sounds bilaterally. Absent: respiratory distress, wheezes, rales, rhonchi, stridor Cardiovascular Exam: Present: regular rate, normal rhythm, normal heart sounds, other (Normal radial pulses bilaterally) GI/Abdominal exam: Present: soft, normal bowel sounds. Absent: distended, tenderness, guarding Extremities exam: Absent: tenderness, pedal edema, calf tenderness Back exam: Absent: tenderness Neurological exam: Present: alert, oriented X3 Psychiatric exam: Present: normal affect, normal mood Skin exam: Present: warm, dry, intact, normal color Course Vital Signs 08/14/22 08/14/22 18:05 21:40 Temperature 97.6 F Pulse Rate 74 77 Respiratory 20 16 Rate Blood Pressure 110/64 117/53 O2 Sat by Pulse 99 98 Oximetry - Reevaluation(s) Reevaluation #1: 08/14/22 22:43 Patient denies development of any new symptoms while in the ED. The patient has not had any diarrhea or bowel movement while in the ED, and she has been unable to provide a stool specimen while in the ED. Patient's abdomen remains soft and nontender on examination. Patient and are aware the patient's test results, and patient feels comfortable being discharged home at this time. She was counseled about diarrhea and myalgias, and she was clearly explained return and follow-up instructions. Patient was instructed to follow up closely with her primary care provider. Patient feels comfortable with this plan. Medical Decision Making - Medical Decision Making Was pt. sent in by a medical professional or institution (SHANON Cervantes, [employer], urgent care, hospital, or fdc...) When possible be specific @ -No Did you speak to anyone other than the patient for history (EMS, parent, family, police, friend...)? What history was obtained from this source @ -No Did you review nursing and triage notes (agree or disagree)? Why? @ -I reviewed and agree with nursing and triage notes Were old charts reviewed (outside hosp., previous admission, EMS record, old EKG, old radiological studies, urgent care reports/EKG's, fdc records)? Report findings @ -No old charts were reviewed Differential Diagnosis (chest pain, altered mental status, abdominal pain women, abdominal pain men, vaginal bleeding, weakness, fever, dyspnea, syncope, headache, dizziness, GI bleed, back pain, seizure, CVA, palpatations, mental health, musculoskeletal)? @ -Diarrhea, colitis, enteritis, viral illness, food toxicity, C. diff colitis, dysentery, dehydration, electrolyte abnormality, myalgias, viral illness, renal insufficiency EKG interpreted by me (3pts min.). @ -None done X-rays interpreted by me (1pt min.). @ -None done CT interpreted by me (1pt min.). @ -None done U/S interpreted by me (1pt. min.). @ -None done What testing was considered but not performed or refused? (CT, X-rays, U/S, labs)? Why? @ -None What meds were considered but not given or refused? Why? @ -None Did you discuss the management of the patient with other professionals (professionals i.e. DrRudy, PA, [employer]PER[employer]OR, lab, RT, psych nurse, social worker health services, solar field service technician, teacher, commanding officer garage, outsole caser)? Give summary @ -No Was smoking cessation discussed for >3mins.? @ -No Was critical care preformed (if so, how long)? @ -No Were there social determinants of health that impacted care today? How? (Homelessness, low income, unemployed, alcoholism, drug addiction, transportation, low edu. Level, literacy, decrease access to med. care, longterm, rehab)? @ -No Was there de-escalation of care discussed even if they declined (Discuss DNR or withdrawal of care, Hospice)? DNR status @ -No What co-morbidities impacted this encounter? (DM, HTN, Smoking, COPD, CAD, Can cer, CVA, ARF, Chemo, Hep., AIDS, mental health diagnosis, sleep apnea, morbid obesity)? @ -None Was patient admitted / discharged? Hospital course, mention meds given and route, prescriptions, significant lab abnormalities, going to OR and other pertinent info. @ -Patient has not had any diarrhea/bowel movements while in the ED. Patient i s afebrile and without leukocytosis. Patient has a soft and nontender abdominal exam. Patient is noted to have mild renal insufficiency, which I suspect may be due to mild dehydration. Patient has been hydrated with IV fluids in the ED. Patient's hemoglobin is 10, which is higher than her baseline. I do not suspect an emergent medical or surgical condition at this time. Will discharge patient home with her at this time. Undiagnosed new problem with uncertain prognosis? @ -No Drug Therapy requiring intensive monitoring for toxicity (Heparin, Nitro, Insulin, Cardizem)? @ -No Were any procedures done? @ -No Diagnosis/symptom? @ -Diarrhea Acute, or Chronic, or Acute on Chronic? @ -Acute Uncomplicated (without systemic symptoms) or Complicated (systemic symptoms)? @ -default Side effects of treatment? @ -No Exacerbation, Progression, or Severe Exacerbation? @ -No Poses a threat to life or bodily function? How? (Chest pain, [place], [place], pneumonia, PE, COPD, DKA, ARF, appy, cholecystitis, CVA, Diverticulitis, Homicidal, Suicidal, threat to staff... and all critical care pts) @ -No Diagnosis/symptom? @ -Myalgias Acute, or Chronic, or Acute on Chronic? @ -Acute Uncomplicated (without systemic symptoms) or Complicated (systemic symptoms)? @ -default Side effects of treatment? @ -none Exacerbation, Progression, or Severe Exacerbation] @ -no Poses a threat to life or bodily function? @ -no - Lab Data Result diagrams: 08/14/22 19:44 08/14/22 19:44 Lab Results 08/14/22 08/14/22 08/14/22 Range/Units 19:44 19:44 19:44 WBC 6.1 (3.8-10.6) k/uL RBC 3.65 L (3.80-5.40) m/uL Hgb 10.6 L (11.4-16.0) gm/dL Hct 33.0 L (34.0-46.0) % MCV 90.2 (80.0-100.0) fL MCH 29.0 (25.0-35.0) pg MCHC 32.2 (31.0-37.0) g/dL RDW 16.4 H (11.5-15.5) % Plt Count 102 L (150-450) k/uL MPV 8.8 Neutrophils % 77 % Lymphocytes % 17 % Monocytes % 4 % Eosinophils % 0 % Basophils % 0 % Neutrophils # 4.7 (1.3-7.7) k/uL Lymphocytes # 1.0 (1.0-4.8) k/uL Monocytes # 0.3 (0-1.0) k/uL Eosinophils # 0.0 (0-0.7) k/uL Basophils # 0.0 (0-0.2) k/uL Hypochromasia Moderate Anisocytosis Slight PT 10.1 (9.0-12.0) sec INR 1.0 (<1.2) APTT 24.3 (22.0-30.0) sec Sodium 135 L (137-145) mmol/L Potassium 4.8 (3.5-5.1) mmol/L Chloride 104 (98-107) mmol/L Carbon Dioxide 23 (22-30) mmol/L Anion Gap 8 mmol/L BUN 19 H (7-17) mg/dL Creatinine 1.38 H (0.52-1.04) mg/dL Est GFR (CKD-EPI)AfAm 44 (>60 ml/min/1.73 sqM) Est GFR (CKD-EPI)NonAf 39 (>60 ml/min/1.73 sqM) Glucose 107 H (74-99) mg/dL Plasma Lactic Acid Christ (0.7-2.0) mmol/L Calcium 7.9 L (8.4-10.2) mg/dL Magnesium 2.0 (1.6-2.3) mg/dL Total Bilirubin 0.3 (0.2-1.3) mg/dL AST 21 (14-36) U/L ALT 15 (4-34) U/L Alkaline Phosphatase 137 H (38-126) U/L Total Protein 5.4 L (6.3-8.2) g/dL Albumin 2.9 L (3.5-5.0) g/dL Lipase 377 H (23-300) U/L 08/14/22 Range/Units 19:44 WBC (3.8-10.6) k/uL RBC (3.80-5.40) m/uL Hgb (11.4-16.0) gm/dL Hct (34.0-46.0) % MCV (80.0-100.0) fL MCH (25.0-35.0) pg MCHC (31.0-37.0) g/dL RDW (11.5-15.5) % Plt Count (150-450) k/uL MPV Neutrophils % % Lymphocytes % % Monocytes % % Eosinophils % % Basophils % % Neutrophils # (1.3-7.7) k/uL Lymphocytes # (1.0-4.8) k/uL Monocytes # (0-1.0) k/uL Eosinophils # (0-0.7) k/uL Basophils # (0-0.2) k/uL Hypochromasia Anisocytosis PT (9.0-12.0) sec INR (<1.2) APTT (22.0-30.0) sec Sodium (137-145) mmol/L Potassium (3.5-5.1) mmol/L Chloride (98-107) mmol/L Carbon Dioxide (22-30) mmol/L Anion Gap mmol/L BUN (7-17) mg/dL Creatinine (0.52-1.04) mg/dL Est GFR (CKD-EPI)AfAm (>60 ml/min/1.73 sqM) Est GFR (CKD-EPI)NonAf (>60 ml/min/1.73 sqM) Glucose (74-99) mg/dL Plasma Lactic Acid Christ 0.8 (0.7-2.0) mmol/L Calcium (8.4-10.2) mg/dL Magnesium (1.6-2.3) mg/dL Total Bilirubin (0.2-1.3) mg/dL AST (14-36) U/L ALT (4-34) U/L Alkaline Phosphatase (38-126) U/L Total Protein (6.3-8.2) g/dL Albumin (3.5-5.0) g/dL Lipase (23-300) U/L Disposition Clinical Impression: Diarrhea, Myalgia Disposition: HOME SELF-CARE Condition: Stable Instructions (If sedation given, give patient instructions): Acute Diarrhea (ED), Musculoskeletal Pain (ED) Additional Instructions: Return to the ER immediately should you develop new or worsening pain, bloody diarrhea, persistent vomiting, a fever, shortness of breath, feeling dizzy or faint, or new or worsening symptoms. Follow up closely with your primary care provider. Is patient prescribed a controlled substance at d/c from ED?: No Referrals: Anthony Srinivasan DO [Primary Care Provider] - 1-2 days Time of Disposition: 22:49
[2022-08-14 20:28] LABS: Anisocytosis Slight; Basophils % (A) 0 %; Eosinophils % (A) 0 %; HGB 10.6 gm/dL (11.4-16.0); Hypochromasia Moderate; Lymphocytes % (A) 17 %; MCHC 32.2 g/dL (31.0-37.0); MCV 90.2 fL (80.0-100.0); Mean Platelet Volume 8.8; Monocytes # (A) 0.3 k/uL (0-1.0); Monocytes % (A) 4 %; Neutrophils # (A) 4.7 k/uL (1.3-7.7); Neutrophils % (A) 77 %; Platelet Count 102 k/uL (150-450); RBC 3.65 m/uL (3.80-5.40); RDW 16.4 % (11.5-15.5); WBC 6.1 k/uL (3.8-10.6)
[2022-08-14 20:38] LABS: Partial Thromboplastin Time 24.3 sec (22.0-30.0); Prothrombin Time 10.1 sec (9.0-12.0)
[2022-08-14 21:04] LABS: Albumin 2.9 g/dL (3.5-5.0); Calcium 7.9 mg/dL (8.4-10.2); Potassium 4.8 mmol/L (3.5-5.1); Total Bilirubin 0.3 mg/dL (0.2-1.3); Total Protein 5.4 g/dL (6.3-8.2)
[2022-08-14 21:41] VITALS: BP 117/53
[2022-08-14 23:00] VITALS: PULSE 78; RESP 18
== END 2022-08-14 23:00 | disposition home or self-care (01) ==
LOC: EC 17:59
DX: R19.7 Diarrhea, unspecified (principal); M79.10 Myalgia, unspecified site; E11.40 Type 2 diabetes mellitus with diabetic neuropathy, unspecified; I10 Essential (primary) hypertension; Z79.899 Other long term (current) drug therapy; Z88.0 Allergy status to penicillin; Z88.2 Allergy status to sulfonamides; Z88.5 Allergy status to narcotic agent
CPT/HCPCS: 36415; 80053; 83605; 83690; 83735; 85025; 85610; 85730; 96360; 96361; 99284

== ENCOUNTER → 2022-09-08 | Outpatient (CLI) | payer MEDICARE ==
--- NOTE | 2022-09-08 14:07 | XR ---
EXAMINATION TYPE: XR shoulder complete BILAT DATE OF EXAM: 09/08/2022 1:59 PM INDICATION: Patient age:Female; 71 years old; Reason for study: M25.511 Pain in right shoulder, M25.512 Pain in left shoulder; COMPARISON: 11/03/2017 TECHNIQUE: The bilateral shoulder was examined in AP, internally rotated and scapular Y projections. FINDINGS: Right: Chronic right proximal shoulder fracture. Degeneration and sequela of prior fracture. No acute fractures visualized. Soft tissues are unremarkable. Moderate right pleural effusion. Left shoulder demonstrates degeneration changes are, clavicular joint. No acute osseous pathology satish aterally. IMPRESSION: 1. Chronic right proximal humerus fracture, the left shoulder appears intact. There is degeneration changes of the acromioclavicular joint and left shoulder. 2. Moderate right pleural effusion.
--- NOTE | 2022-09-08 14:40 | XR ---
EXAMINATION TYPE: XR cervical spine comp DATE OF EXAM: 09/08/2022 1:59 PM INDICATION: Patient age:Female; 71 years old; Reason for study: Chronic neck pain M54.2; COMPARISON: None TECHNIQUE: The cervical spine was imaged in frontal, lateral, odontoid and bilateral oblique. FINDINGS: The osseous structures show normal alignment without evidence of an acute fracture. There are osteoph ytes noted throughout the cervical spine on the anterior and lateral aspects of the vertebral bodies. The intervertebral disk spaces are narrowed at multiple levels. Pedicles are intact. Soft tissues a re within normal limits. The odontoid appears intact. IMPRESSION: 1. No fracture or dislocation. 2. Mild degenerative disc disease changes of the cervical spine.
== END | disposition home or self-care (01) ==
LOC: RADXRWHC 12:55
PROVIDERS: ATTEND Nurse Practitioner Family
DX: M19.012 Primary osteoarthritis, left shoulder (principal); J90 Pleural effusion, not elsewhere classified; M50.30 Other cervical disc degeneration, unspecified cervical region
CPT/HCPCS: 72050

== ENCOUNTER 2022-09-23 19:28 | Inpatient (IN) | payer MEDICARE ==
[2022-09-23 20:38] LABS: INR 1.1 (<1.2); Partial Thromboplastin Time 23.2 sec (22.0-30.0); Prothrombin Time 11.4 sec (9.0-12.0)
[2022-09-23 20:41] LABS: Anisocytosis Moderate; Basophils % (A) 0 %; Eosinophils % (A) 1 %; HCT 32.1 % (34.0-46.0); HGB 10.1 gm/dL (11.4-16.0); Hypochromasia Marked; Lymphocytes # (A) 1.3 k/uL (1.0-4.8); Lymphocytes % (A) 23 %; MCH 29.6 pg (25.0-35.0); MCHC 31.4 g/dL (31.0-37.0); MCV 94.1 fL (80.0-100.0); Macrocytosis Slight; Mean Platelet Volume 8.8; Monocytes # (A) 0.3 k/uL (0-1.0); Monocytes % (A) 5 %; Neutrophils # (A) 3.8 k/uL (1.3-7.7); Neutrophils % (A) 69 %; Platelet Count 218 k/uL (150-450); RBC 3.42 m/uL (3.80-5.40); RDW 20.4 % (11.5-15.5); WBC 5.5 k/uL (3.8-10.6)
[2022-09-23 20:47] LABS: ALT 23 U/L (4-34); AST 44 U/L (14-36); African American GFR (CKD) 31 (>60 ml/min/1.73 sqM); Albumin 2.7 g/dL (3.5-5.0); Alkaline Phosphatase 118 U/L (38-126); Anion Gap 8 mmol/L; Blood Urea Nitrogen 30 mg/dL (7-17); Carbon Dioxide 19 mmol/L (22-30); Chloride 106 mmol/L (98-107); Glucose 130 mg/dL (74-99); Non-African American GFR(CKD) 27 (>60 ml/min/1.73 sqM); Potassium 4.7 mmol/L (3.5-5.1); Sodium 133 mmol/L (137-145); Total Bilirubin 0.3 mg/dL (0.2-1.3); Total Protein 5.1 g/dL (6.3-8.2)
[2022-09-23] MEDS ORDERED: SODIUM CHLORIDE 0.9% 2,000 ML IV STA (21:54)
[2022-09-23 22:29] LABS: Appearance,Urine Cloudy (Clear); Bacteria,Urine Moderate /hpf; Bilirubin,Urine Negative (Negative); Blood,Urine Trace (Negative); Color,Urine Yellow; Glucose,Urine (UA) Negative (Negative); Ketones,Urine Trace (Negative); Leukocyte Esterase,Urine Large (Negative); Nitrite,Urine Negative (Negative); PH, Urine 5.5 (5.0-8.0); Protein,Urine 1+ (Negative); RBC,Urine 13 /hpf (0-5); Specific Gravity,Urine 1.025 (1.001-1.035); Urobilinogen,Urine <2.0 mg/dL (<2.0); WBC,Urine >182 /hpf (0-5)
--- NOTE | 2022-09-23 22:42 | CT ---
EXAM: CT Cervical Spine Without Intravenous Contrast CLINICAL HISTORY: ITS.REASON CT Reason: neck pain TECHNIQUE: Axial computed tomography images of the cervical spine without intravenous contrast. CTDI is 11.6 mGy and DLP is 332.9 mGy-cm. This CT exam was performed using one or more of the following dose reduction techniques: automated exposure control, adjustment of the mA and/or kV according to patient size, and/or use of iterative reconstruction technique. COMPARISON: No relevant prior studies available. FINDINGS: The vertebral body heights are maintained. The craniocervical junction is intact. The atlanto-dens interval is maintained. The dens is intact. There is no spondylolisthesis. Multilevel cervical spondylosis and degenerative disc disease. Straightening of the cervical lordosis. The unenhanced neck soft tissues are grossly unremarkable. The visualized lung apices are grossly clear. IMPRESSION: No acute fracture or subluxation of the cervical spine.
--- NOTE | 2022-09-23 22:57 | ED ---
Weakness HPI - General Chief complaint: Weakness Stated complaint: Neck/Shoulder Pain, Weakness Source: patient Mode of arrival: EMS Limitations: no limitations - History of Present Illness Initial comments: 71-year-old female with past medical history of diabetes, hypertension who presents to the emergency department reporting neck and back pain. States has been going on for the past 6 weeks. Has been previously evaluated by her primary care doctor for similar. She had an x-ray performed which was fairly unremarkable therefore they were going to send the patient for an MRI. States that today her placed her on the toilet and she was unable to get off. Due to her significant weakness she presents to the hospital. Denies chest pain or shortness of breath. No abdominal pain. Review patient's records demonstrates that she was recently hospitalized in June for UTI with bacteremia. She required ICU stay due to low blood pressures. She denies any fevers. Admits to decreased frequency of urination. 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 - Related Data Home Medications Medication Instructions Recorded Confirmed Oxybutynin Chloride 5 mg PO BID 05/15/18 08/14/22 Metoprolol Tartrate [Lopressor] 50 mg PO BID 02/28/20 08/14/22 Albuterol Sulfate [Albuterol 2 puff PO RT-QID PRN 06/29/22 08/14/22 Sulfate Hfa] Alendronate Sodium [Fosamax] 70 mg PO WE 06/29/22 08/14/22 Benzonatate [Tessalon Perles] 100 mg PO TID PRN 06/29/22 08/14/22 Amiodarone [Cordarone] 200 mg PO BID 08/14/22 08/14/22 Furosemide [Lasix] 20 mg PO DAILY 08/14/22 08/14/22 Previous Rx's Medication Instructions Recorded Apixaban [Eliquis] 5 mg PO BID #60 tab 07/05/22 Acetaminophen Tab [Tylenol] 325 mg PO Q6HR PRN tab 07/07/22 Calcium Carbonate [Tums] 1,000 mg PO BID tab 07/07/22 Cholecalciferol [Vitamin D3 (125 125 mcg PO DAILY tab 07/07/22 Mcg = 5000 Iu)] Famotidine [Pepcid] 20 mg PO BID #60 tablet 07/07/22 Ipratropium-Albuterol Nebulize 3 ml INHALATION RT-QID PRN each 07/07/22 [Duoneb 0.5 mg-3 mg/3 ml Soln] Loperamide [Imodium] 2 mg PO QID PRN cap 07/07/22 Allergies Allergy/AdvReac Type Severity Reaction Status Date / Time meperidine [From Demerol] AdvReac Nausea & Verified 09/24/22 07:27 Vomiting Penicillins AdvReac "FALLS Verified 09/24/22 07:27 ALOT"/Weakness Sulfa (Sulfonamide AdvReac Nausea & Verified 09/24/22 07:27 Antibiotics) Vomiting Review of Systems ROS Statement: Those systems with pertinent positive or pertinent negative responses have been documented in the HPI. ROS Other: All systems not noted in ROS Statement are negative. Past Medical History Past Medical History: Diabetes Mellitus, Hypertension, Neurologic Disorder Additional Past Medical History / Comment(s): NEUROPATHY, MIGRAINES, fractured right shoulder, urine MDRO History of Any Multi-Drug Resistant Organisms: CRE, ESBL Date of last positivie culture/infection: 06/29/22 CP-CRE & ESBL MDRO Source:: Blood and [id number]/ESBL Past Surgical History: Bariatric Surgery, Bladder Surgery, Hysterectomy Additional Past Surgical History / Comment(s): ORAL SURGERY. COLONOSCOPY. LAP BAND THEN HAD BARIATRIC SURGERY;. bladder surgery may have been for a benign cyst but is not sure. 16 LBS ABD. TISSUE REMOVED Past Anesthesia/Blood Transfusion Reactions: No Reported Reaction Past Psychological History: Anxiety, Depression Smoking Status: Never smoker Past Alcohol Use History: None Reported Past Drug Use History: None Reported - Past Family History Mother Family Medical History: Diabetes Mellitus Additional Family Medical History / Comment(s): At [facility] with UTI. Father Family Medical History: CVA/TIA, Diabetes Mellitus Sister(s) Family Medical History: Deep Vein Thrombosis (DVT) General Exam Limitations: no limitations General appearance: alert, in no apparent distress Head exam: Present: atraumatic, normocephalic, normal inspection Eye exam: Present: normal appearance, PERRL, EOMI. Absent: scleral icterus, conjunctival injection, periorbital swelling ENT exam: Present: normal exam, mucous membranes moist Neck exam: Present: tenderness (Paraspinal. 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 Absent: meningismus, lymphadenopathy Respiratory exam: Present: normal lung sounds bilaterally. Absent: respiratory distress, wheezes, rales, rhonchi, stridor Cardiovascular Exam: Present: regular rate, normal rhythm, normal heart sounds. Absent: systolic murmur, diastolic murmur, rubs, gallop, clicks GI/Abdominal exam: Present: soft, normal bowel sounds. Absent: distended, tenderness, guarding, rebound, rigid Extremities exam: Present: normal inspection, full ROM, normal capillary refill. Absent: tenderness, pedal edema, joint swelling, calf tenderness Back exam: Present: normal inspection Neurological exam: Present: alert, oriented X3, CN II-XII intact Psychiatric exam: Present: normal affect, normal mood Skin exam: Present: warm, dry, intact, normal color. Absent: rash Course Vital Signs 09/23/22 09/23/22 09/23/22 19:36 21:00 22:00 Temperature 97.1 F L Pulse Rate 67 57 L 68 Respiratory 18 20 16 Rate Blood Pressure 86/46 89/42 84/40 O2 Sat by Pulse 98 96 98 Oximetry 09/23/22 09/24/22 09/24/22 23:43 00:00 00:30 Temperature 98.2 F Pulse Rate 66 60 Respiratory 12 14 Rate Blood Pressure 104/54 116/60 O2 Sat by Pulse 98 Oximetry Medical Decision Making - Medical Decision Making Was pt. sent in by a medical professional or institution ([facility], [facility], urgent care, hospital, or alf...) When possible be specific @ -No Did you speak to anyone other than the patient for history (EMS, parent, family, police, friend...)? What history was obtained from this source @ -No Did you review nursing and triage notes (agree or disagree)? Why? @ -I reviewed and agree with nursing and triage notes Were old charts reviewed (outside hosp., previous admission, EMS record, old EKG, old radiological studies, urgent care reports/EKG's, alf records)? Report findings @ -I reviewed patient's inpatient notes from her admission during June Differential Diagnosis (chest pain, altered mental status, abdominal pain women, abdominal pain men, vaginal bleeding, weakness, fever, dyspnea, syncope, headache, dizziness, GI bleed, back pain, seizure, CVA, palpatations, mental health, musculoskeletal)? @ -Differential Weakness: Hypoglycemia, shock, sepsis, hyponatremia, anemia, infection, TN, ETOH, adverse medicine reaction, overdose, stroke, this is not meant to be an all-inclusive list. EKG interpreted by me (3pts min.). @ -Yes and demonstrates sinus bradycardia with a rate of 58. MS interval 211. QRS 81. QTC of 412. Low voltage. Inverted T waves V2. No acute ST segment elevation. X-rays interpreted by me (1pt min.). @ -None done CT interpreted by me (1pt min.). @ -Yes and demonstrates no acute findings U/S interpreted by me (1pt. min.). @ -None done What testing was considered but not performed or refused? (CT, X-rays, U/S, labs)? Why? @ -None What meds were considered but not given or refused? Why? @ -None Did you discuss the management of the patient with other professionals (sylvia owens i.e. , PA, [facility], lab, RT, psych nurse, social sciences chair, otc clerk, teacher, guest services officer, watch case polisher)? Give summary @ -Spoke with Abrahan with [facility] who agreed to admit the patient Was smoking cessation discussed for >3mins.? @ -No Was critical care preformed (if so, how long)? @ -No Were there social determinants of health that impacted care today? How? (Homelessness, low income, unemployed, alcoholism, drug addiction, transportation, low edu. Level, literacy, decrease access to med. care, detention, rehab)? @ -No Was there de-escalation of care discussed even if they declined (Discuss DNR or withdrawal of care, Hospice)? DNR status @ -No What co-morbidities impacted this encounter? (DM, HTN, Smoking, COPD, CAD, Cancer, CVA, ARF, Chemo, Hep., AIDS, mental health diagnosis, sleep apnea, morbid obesity)? @ -A. fib Was patient admitted / discharged? Hospital course, mention meds given and route, prescriptions, significant lab abnormalities, going to OR and other pertinent info. @ -Upon arrival patient was placed into room 15. A thorough history and physical exam was performed. IV was established and she was given a 2 L bolus of normal saline. Laboratory studies were conducted. Patient is straight catheter urine sample. She does go for CT of her neck due to reported weakness with inability to hold her neck up. Laboratory studies are reviewed and demonstrate a urinary tract infection. Patient is initiated on antibiotics as she does have history of ESBL. Recommended admission for neurology to consult. Patient was agreeable to this. Patient discharged in stable condition Undiagnosed new problem with uncertain prognosis? @ -No Drug Therapy requiring intensive monitoring for toxicity (Heparin, Nitro, Insulin, Cardizem)? @ -No Were any procedures done? @ -No Diagnosis/symptom? @ -Acute generalized weakness, acute UTI, LISA, subacute neck pain Acute, or Chronic, or Acute on Chronic? @ -Acute Uncomplicated (without systemic symptoms) or Complicated (systemic symptoms)? @ -Complicated Side effects of treatment? @ -No Exacerbation, Progression, or Severe Exacerbation? @ -No Poses a threat to life or bodily function? How? (Chest pain, USA, TN, pneumonia, PE, COPD, DKA, ARF, appy, cholecystitis, CVA, Diverticulitis, Homicidal, Suicidal, threat to staff... and all critical care pts) @ -Yes patient previously was in septic shock due to her urinary tract infection - Lab Data Result diagrams: 09/23/22 20:02 09/24/22 06:40 Lab Results 09/23/22 09/23/22 09/23/22 Range/Units 20:02 20:02 20:02 WBC 5.5 (3.8-10.6) k/uL RBC 3.42 L (3.80-5.40) m/uL Hgb 10.1 L (11.4-16.0) gm/dL Hct 32.1 L (34.0-46.0) % MCV 94.1 (80.0-100.0) fL MCH 29.6 (25.0-35.0) pg MCHC 31.4 (31.0-37.0) g/dL RDW 20.4 H (11.5-15.5) % Plt Count 218 D (150-450) k/uL MPV 8.8 Neutrophils % 69 % Lymphocytes % 23 % Monocytes % 5 % Eosinophils % 1 % Basophils % 0 % Neutrophils # 3.8 (1.3-7.7) k/uL Lymphocytes # 1.3 (1.0-4.8) k/uL Monocytes # 0.3 (0-1.0) k/uL Eosinophils # 0.0 (0-0.7) k/uL Basophils # 0.0 (0-0.2) k/uL Hypochromasia Marked Anisocytosis Moderate Macrocytosis Slight PT 11.4 (9.0-12.0) sec INR 1.1 (<1.2) APTT 23.2 (22.0-30.0) sec Sodium 133 L (137-145) mmol/L Potassium 4.7 (3.5-5.1) mmol/L Chloride 106 (98-107) mmol/L Carbon Dioxide 19 L (22-30) mmol/L Anion Gap 8 mmol/L BUN 30 H (7-17) mg/dL Creatinine 1.85 H (0.52-1.04) mg/dL Est GFR (CKD-EPI)AfAm 31 (>60 ml/min/1.73 sqM) Est GFR (CKD-EPI)NonAf 27 (>60 ml/min/1.73 sqM) Glucose 130 H (74-99) mg/dL Plasma Lactic Acid Christ (0.7-2.0) mmol/L Calcium 8.0 L (8.4-10.2) mg/dL Total Bilirubin 0.3 (0.2-1.3) mg/dL AST 44 H (14-36) U/L ALT 23 (4-34) U/L Alkaline Phosphatase 118 (38-126) U/L Troponin I (0.000-0.034) ng/mL Total Protein 5.1 L (6.3-8.2) g/dL Albumin 2.7 L (3.5-5.0) g/dL Urine Color Urine Appearance (Clear) Urine pH (5.0-8.0) Ur Specific [place] (1.001-1.035) Urine Protein (Negative) Urine Glucose (UA) (Negative) Urine Ketones (Negative) Urine Blood (Negative) Urine Nitrite (Negative) Urine Bilirubin (Negative) Urine Urobilinogen (<2.0) mg/dL Ur Leukocyte Esterase (Negative) Urine RBC (0-5) /hpf Urine WBC (0-5) /hpf Urine Bacteria (None) /hpf 09/23/22 09/23/22 09/23/22 Range/Units 20:02 20:02 22:05 WBC (3.8-10.6) k/uL RBC (3.80-5.40) m/uL Hgb (11.4-16.0) gm/dL Hct (34.0-46.0) % MCV (80.0-100.0) fL MCH (25.0-35.0) pg MCHC (31.0-37.0) g/dL RDW (11.5-15.5) % Plt Count (150-450) k/uL MPV Neutrophils % % Lymphocytes % % Monocytes % % Eosinophils % % Basophils % % Neutrophils # (1.3-7.7) k/uL Lymphocytes # (1.0-4.8) k/uL Monocytes # (0-1.0) k/uL Eosinophils # (0-0.7) k/uL Basophils # (0-0.2) k/uL Hypochromasia Anisocytosis Macrocytosis PT (9.0-12.0) sec INR (<1.2) APTT (22.0-30.0) sec Sodium (137-145) mmol/L Potassium (3.5-5.1) mmol/L Chloride (98-107) mmol/L Carbon Dioxide (22-30) mmol/L Anion Gap mmol/L BUN (7-17) mg/dL Creatinine (0.52-1.04) mg/dL Est GFR (CKD-EPI)AfAm (>60 ml/min/1.73 sqM) Est GFR (CKD-EPI)NonAf (>60 ml/min/1.73 sqM) Glucose (74-99) mg/dL Plasma Lactic Acid Christ 1.1 (0.7-2.0) mmol/L Calcium (8.4-10.2) mg/dL Total Bilirubin (0.2-1.3) mg/dL AST (14-36) U/L ALT (4-34) U/L Alkaline Phosphatase (38-126) U/L Troponin I <0.012 (0.000-0.034) ng/mL Total Protein (6.3-8.2) g/dL Albumin (3.5-5.0) g/dL Urine Color Yellow Urine Appearance Cloudy H (Clear) Urine pH 5.5 (5.0-8.0) Ur Specific [place] 1.025 (1.001-1.035) Urine Protein 1+ H (Negative) Urine Glucose (UA) Negative (Negative) Urine Ketones Trace H (Negative) Urine Blood Trace H (Negative) Urine Nitrite Negative (Negative) Urine Bilirubin Negative (Negative) Urine Urobilinogen <2.0 (<2.0) mg/dL Ur Leukocyte Esterase Large H (Negative) Urine RBC 13 H (0-5) /hpf Urine WBC >182 H (0-5) /hpf Urine Bacteria Moderate H (None) /hpf Disposition Clinical Impression: UTI (urinary tract infection), Neck pain, LISA (acute kidney injury), Hypotension Disposition: ADMITTED IP TO THIS HOSP Condition: Serious Is patient prescribed a controlled substance at d/c from ED?: No Time of Disposition: 23:10 Decision to Admit Reason: Admit from EC Decision Date: 09/23/22 Decision Time: 23:10
[2022-09-23] MEDS ORDERED: NALOXONE 0.4 MG/ML 1 ML VIAL IV PRN (23:11)
[2022-09-23] MEDS ORDERED: IPRATROPIUM-ALBUTEROL 3 ML NEB INHALATION PRN (23:14)
[2022-09-23] MEDS ORDERED: CEFTOLOZANE/TAZOBACTAM 1.5 GM in SODIUM CHLORIDE 0.9% 100 ML IV ONE (23:15)
[2022-09-24] MEDS: APIXABAN 5 MG TAB PO SCH ×3 (00:03→20:42)
[2022-09-24] MEDS: SODIUM CHLORIDE 0.9% 1,000 ML IV SCH ×3 (01:47→20:42)
[2022-09-24] MEDS: ACETAMINOPHEN TAB 325 MG TAB PO PRN ×2 (01:52→08:15)
[2022-09-24 06:04] LABS: Glucose,Whole Blood 93 mg/dL (70-110)
[2022-09-24 07:29] LABS: African American GFR (CKD) 43 (>60 ml/min/1.73 sqM); Anion Gap 7 mmol/L; Blood Urea Nitrogen 25 mg/dL (7-17); Carbon Dioxide 15 mmol/L (22-30); Chloride 113 mmol/L (98-107); Glucose 78 mg/dL (74-99); Non-African American GFR(CKD) 37 (>60 ml/min/1.73 sqM); Potassium 4.5 mmol/L (3.5-5.1); Sodium 135 mmol/L (137-145)
[2022-09-24] MEDS: CEFTOLOZANE/TAZOBACTAM 1.5 GM in SODIUM CHLORIDE 0.9% 100 ML IV SCH ×2 (08:07→16:53)
[2022-09-24] MEDS ORDERED: BENZONATATE 100 MG CAP PO PRN (09:20)
[2022-09-24] MEDS ORDERED: ALBUTEROL HFA INHALER INHALATION PRN (09:20)
[2022-09-24 09:24] LABS: Anisocytosis Moderate; Basophils % (A) 1 %; Eosinophils % (A) 1 %; HCT 29.3 % (34.0-46.0); Hypochromasia Marked; Lymphocytes # (A) 0.9 k/uL (1.0-4.8); Lymphocytes % (A) 26 %; MCH 29.1 pg (25.0-35.0); MCHC 29.3 g/dL (31.0-37.0); Macrocytosis Moderate; Mean Platelet Volume 8.1; Monocytes # (A) 0.2 k/uL (0-1.0); Monocytes % (A) 7 %; Neutrophils # (A) 2.2 k/uL (1.3-7.7); Neutrophils % (A) 64 %; Platelet Count 153 k/uL (150-450); RBC 2.95 m/uL (3.80-5.40); RDW 20.5 % (11.5-15.5); WBC 3.5 k/uL (3.8-10.6)
[2022-09-24 09:25] LABS: HGB 8.6 gm/dL (11.4-16.0); MCV 99.4 fL (80.0-100.0)
--- NOTE | 2022-09-24 11:28 | P.CRDCN ---
History of Present Illness History of present illness: HISTORY OF PRESENT ILLNESS: This is a 71-year-old female with a past medical history significant for mild nonischemic cardiomyopathy, hypertension, diabetes, and paroxysmal atrial fibrillation. Patient follows in the office with Dr. Bermudez. We have been asked to see the patient in consultation for hypotension and atrial fibrillation. Patient examined at the bedside. Patient states she initially presented to the hospital with pain in her neck and her hands. She also reports urinary frequency and urgency. The patient was found to have a urinary tract infection. The patient was hypotensive upon admission to the hospital with a systolic blood pressure in the 70s. She received IV fluid hydration with improvement in her blood pressure. Most recent blood pressure 101/65. The patient denies any dizziness or lightheadedness. She denies any chest pain or pressure. She denies any shortness of breath. Telemetry reveals sinus mechanism. * EKG reveals sinus mechanism no signs of acute ischemia * Laboratory data: WBC 3.5. Hemoglobin 8.6. Platelet count 153. Sodium 135. Potassium 4.5. BUN 25. Creatinine 1.43. Troponin negative 1. * Current home cardiac medications include Eliquis 5mg BID, amiodarone 200 mg twice a day, Lasix 20 mg daily, metoprolol tartrate 50 mg twice a day * Most recent echocardiogram obtained in June 2022 revealed ejection fraction 45-50% * Cardiac catheterization history: December 2017 revealing normal coronary arteries REVIEW OF SYSTEMS: At the time of my exam: CONSTITUTIONAL: Denies fever or chills. HEENT: Denies blurred vision, vision changes, or eye pain. Denies hemoptysis CARDIOVASCULAR: Denies chest pain. Denies orthopnea. Denies PND. Denies palpitations RESPIRATORY: Denies shortness of breath. GASTROINTESTINAL: Denies abdominal pain. Denies nausea or vomiting. HEMATOLOGIC: Denies bleeding disorders. GENITOURINARY: Denies any blood in urine. SKIN: Denies pruitis. Denies rash. PHYSICAL EXAM: VITAL SIGNS: Reviewed. GENERAL: Well-developed in no acute distress. HEENT: Head is normocephalic. Pupils are equal, round. Sclerae anicteric. Mucous membranes of the mouth are moist. Neck supple. No JVD or thyromegaly LUNGS: Respirations even and unlabored. Lungs essentially clear to auscultation bilaterally. HEART: Regular rate and rhythm. S1 and S2 heard. Lungs clear to auscultation. Diminished on the right. ABDOMEN: Soft. Nondistended. Nontender. EXTREMITIES: Normal range of motion. No clubbing or cyanosis. Peripheral pulses intact. Bilateral nonpitting lower extremity edema NEUROLOGIC: Awake and alert. Oriented x 3. ASSESSMENT: Neck pain Urinary tract infection Hypotension, secondary to above, resolved with IV fluid hydration Acute kidney injury, improving Paroxysmal atrial fibrillation, currently maintaining sinus mechanism Mild nonischemic cardiomyopathy, ejection fraction 45-50% Normal coronary arteries, per cardiac catheterization in 2018 History of hypertension Diabetes PLAN: No need to repeat echocardiogram as this was performed in June 2022 Patient initially hypotensive on admission secondary to infectious process. Hypotension has resolved with IV fluid hydration. Continue telemetry monitoring. Patient currently in sinus mechanism Continue current cardiac medications. No changes to medication regimen are necessary at this time. Decrease IV fluids to 50cc/hr. Repeat BMP in AM Further recommendations pending patient's course Nurse practitioner note has been reviewed by physician. Signing provider agrees with the documented findings, assessment, and plan of care. Past Medical History Past Medical History: Diabetes Mellitus, Hypertension, Neurologic Disorder Additional Past Medical History / Comment(s): NEUROPATHY, MIGRAINES, fractured right shoulder, urine MDRO History of Any Multi-Drug Resistant Organisms: CRE, ESBL Date of last positivie culture/infection: 06/29/22 CP-CRE & ESBL MDRO Source:: Blood and [id number]-[id number]/ESBL Past Surgical History: Bariatric Surgery, Bladder Surgery, Hysterectomy Additional Past Surgical History / Comment(s): ORAL SURGERY. COLONOSCOPY. LAP BAND THEN HAD BARIATRIC SURGERY;. bladder surgery may have been for a benign cyst but is not sure. 16 LBS ABD. TISSUE REMOVED Past Anesthesia/Blood Transfusion Reactions: No Reported Reaction Past Psychological History: Anxiety, Depression Smoking Status: Never smoker Past Alcohol Use History: None Reported Past Drug Use History: None Reported - Past Family History Mother Family Medical History: Diabetes Mellitus Additional Family Medical History / Comment(s): At [facility] [employer] with UTI. Father Family Medical History: CVA/TIA, Diabetes Mellitus Sister(s) Family Medical History: Deep Vein Thrombosis (DVT) Medications and Allergies Home Medications Medication Instructions Recorded Confirmed Type Oxybutynin Chloride 5 mg PO BID 05/15/18 09/24/22 History Metoprolol Tartrate [Lopressor] 50 mg PO BID 02/28/20 09/24/22 History Albuterol Sulfate [Albuterol 2 puff PO RT-QID PRN 06/29/22 09/24/22 History Sulfate Hfa] Alendronate Sodium [Fosamax] 70 mg PO WE 06/29/22 09/24/22 History Benzonatate [Tessalon Perles] 100 mg PO TID PRN 06/29/22 09/24/22 History Apixaban [Eliquis] 5 mg PO BID #60 tab 07/05/22 09/24/22 Rx Acetaminophen Tab [Tylenol] 325 mg PO Q6HR PRN tab 07/07/22 09/24/22 Rx Calcium Carbonate [Tums] 1,000 mg PO BID tab 07/07/22 09/24/22 Rx Cholecalciferol [Vitamin D3 (125 125 mcg PO DAILY tab 07/07/22 09/24/22 Rx Mcg = 5000 Iu)] Famotidine [Pepcid] 20 mg PO BID #60 tablet 07/07/22 09/24/22 Rx Ipratropium-Albuterol Nebulize 3 ml INHALATION RT-QID PRN each 07/07/22 09/24/22 Rx [Duoneb 0.5 mg-3 mg/3 ml Soln] Loperamide [Imodium] 2 mg PO QID PRN cap 07/07/22 09/24/22 Rx Amiodarone [Cordarone] 200 mg PO BID 08/14/22 09/24/22 History Furosemide [Lasix] 20 mg PO DAILY 08/14/22 09/24/22 History buPROPion XL [Wellbutrin XL] 150 mg PO DAILY 09/24/22 09/24/22 History Allergies Allergy/AdvReac Type Severity Reaction Status Date / Time meperidine [From Demerol] AdvReac Nausea & Verified 09/24/22 07:27 Vomiting Penicillins AdvReac "FALLS Verified 09/24/22 07:27 ALOT"/Weakness Sulfa (Sulfonamide AdvReac Nausea & Verified 09/24/22 07:27 Antibiotics) Vomiting Physical Exam Vitals: Vital Signs Temp Pulse Pulse Resp BP BP Pulse Ox 09/24/22 09:54 97 09/24/22 08:04 65 09/24/22 08:03 98.4 F 65 16 101/65 97 07/14/23 06:51 97.8 F 60 16 105/63 100 09/24/22 06:04 61 16 99/56 98 09/24/22 05:15 60 16 75/46 98 09/24/22 02:00 61 16 09/24/22 00:55 97.5 F L 61 16 109/58 97 09/24/22 00:30 98.2 F 09/24/22 00:00 60 14 116/60 09/23/22 23:43 66 12 104/54 98 09/23/22 22:00 68 16 84/40 98 09/23/22 21:00 57 L 20 89/42 96 09/23/22 19:36 97.1 F L 67 18 86/46 98 Intake and Output 09/23/22 09/24/22 09/24/22 22:59 06:59 14:59 Intake Total 790 Balance 790 Intake: IV 10 Invasive Line 1 10 Oral 780 Other: Voiding Method External Catheter External Catheter # Voids 1 Weight 81.647 kg 81.647 kg 61.5 kg Results 09/24/22 06:40 09/24/22 06:40 Cardiac Enzymes 09/23/22 09/23/22 Range/Units 20:02 20:02 AST 44 H (14-36) U/L Troponin I <0.012 (0.000-0.034) ng/mL Coagulation 09/23/22 Range/Units 20:02 PT 11.4 (9.0-12.0) sec APTT 23.2 (22.0-30.0) sec CBC 09/23/22 09/24/22 Range/Units 20:02 06:40 WBC 5.5 3.5 L (3.8-10.6) k/uL RBC 3.42 L 2.95 L (3.80-5.40) m/uL Hgb 10.1 L 8.6 L D (11.4-16.0) gm/dL Hct 32.1 L 29.3 L (34.0-46.0) % Plt Count 218 D 153 (150-450) k/uL Comprehensive Metabolic Panel 09/23/22 09/24/22 Range/Units 20:02 06:40 Sodium 133 L 135 L (137-145) mmol/L Potassium 4.7 4.5 (3.5-5.1) mmol/L Chloride 106 113 H (98-107) mmol/L Carbon Dioxide 19 L 15 L (22-30) mmol/L BUN 30 H 25 H (7-17) mg/dL Creatinine 1.85 H 1.43 H (0.52-1.04) mg/dL Glucose 130 H 78 (74-99) mg/dL Calcium 8.0 L 7.0 L (8.4-10.2) mg/dL AST 44 H (14-36) U/L ALT 23 (4-34) U/L Alkaline Phosphatase 118 (38-126) U/L Total Protein 5.1 L (6.3-8.2) g/dL Albumin 2.7 L (3.5-5.0) g/dL Current Medications Generic Name Dose Route Start Last Admin Trade Name Freq PRN Reason Stop Dose Admin Acetaminophen 650 mg 09/23/22 23:11 09/24/22 08:15 Acetaminophen Tab 325 Mg Tab PO 650 mg Q6HR PRN Administration Mild Pain or Fever > 100.5 Albuterol/Ipratropium 3 ml 09/23/22 23:14 Ipratropium-Albuterol 3 Ml Neb INHALATION RT-QID PRN Shortness Of Breath Or Wheezing Amiodarone HCl 200 mg 09/24/22 21:00 Amiodarone 200 Mg Tab PO BID ALBERTO Apixaban 5 mg 09/23/22 23:15 09/24/22 08:06 Apixaban 5 Mg Tab PO 5 mg BID ALBERTO Administration Protocol Benzonatate 100 mg 09/24/22 09:20 Benzonatate 100 Mg Cap PO TID PRN Cough Bupropion HCl 150 mg 09/25/22 09:00 Bupropion Xl 150 Mg Tab.Er.24h PO DAILY ALBERTO Ceftolozane/Tazobactam 1.5 gm/ 100 mls @ 100 mls/hr 09/24/22 08:00 09/24/22 08:07 Sodium Chloride IV 100 mls/hr Q8H ALBERTO Administration Protocol Sodium Chloride 1,000 mls @ 50 mls/hr 09/23/22 23:15 09/24/22 06:50 Saline 0.9% IV 130 mls/hr .Q20H ALBERTO Administration Metoprolol Tartrate 50 mg 09/24/22 21:00 Metoprolol Tartrate 50 Mg Tab PO BID ALBERTO Naloxone HCl 0.2 mg 09/23/22 23:11 Naloxone 0.4 Mg/Ml 1 Ml Vial IV Q2M PRN Opioid Reversal Intake and Output 09/23/22 09/24/22 09/24/22 22:59 06:59 14:59 Intake Total 790 Balance 790 Intake: IV 10 Invasive Line 1 10 Oral 780 Other: Voiding Method External Catheter External Catheter # Voids 1 Weight 81.647 kg 81.647 kg 61.5 kg Patient Weight 09/25/22 06:59 Weight 61.5 kg 09/24/22 06:40 09/24/22 06:40
[2022-09-24 11:40] LABS: Glucose,Whole Blood 95 mg/dL (70-110)
--- NOTE | 2022-09-24 13:40 | P.HPIM ---
History of Present Illness H&P Date: 09/24/22 History of present illness; patient 71-year-old lady with past medical significa nt for hypertension, hyperlipidemia, paroxysmal atrial fibrillation ablation presented to the ER because of generalized weakness. Patient has been complaining of back pain and neck pain for which she has been following up outpatient with PCP who ran some x-rays but was inconclusive. Patient was at home and was getting more and more weak, today she was unable to get up from the toilet. Patient denies any fever or chills. There is no complaint of lightheadedness or dizziness. Denies any nausea or vomiting. Denies any chest pain or shortness of breath. No complaint of orthopnea or PND. Because of this generalized weakness, patient came to the ER Initial lab work done in the ER showed WBC 5.5, hemoglobin 10.1, platelet count 218, sodium 133, potassium 4.7, BUN 30, creatinine 1.85, UA showed leukocyte Estrace positive, urine WBC more than 182 CT cervical spine negative for any acute fractures Patient admitted to medicine service REVIEW OF SYSTEMS: CONSTITUTIONAL: No fever, Complaining of neck pain and generalized weakness HEENT: No recent visual problems or hearing problems. Denied any sore throat. CARDIOVASCULAR: No chest pain, orthopnea, PND, no palpitations, no syncope. PULMONARY: No shortness of breath, no cough, no hemoptysis. GASTROINTESTINAL: No diarrhea, no nausea, no vomiting, no abdominal pain. NEUROLOGICAL: No headaches, no weakness, no numbness. HEMATOLOGICAL: Denies any bleeding or petechiae. GENITOURINARY: Denies any burning micturition, frequency, or urgency. MUSCULOSKELETAL/RHEUMATOLOGICAL: Denies any joint pain, swelling, or any muscle pain. ENDOCRINE: Denies any polyuria or polydipsia. The rest of the 14-point review of systems is negative. PHYSICAL EXAMINATION: GENERAL: The patient is alert and oriented x3, not in any acute distress. Well developed, well nourished. HEENT: Pupils are round and equally reacting to light. EOMI. No scleral icterus. No conjunctival pallor. Normocephalic, atraumatic. No pharyngeal erythema. No thyromegaly. CARDIOVASCULAR: S1 and S2 present. No murmurs, rubs, or gallops. PULMONARY: Chest is clear to auscultation, no wheezing or crackles. ABDOMEN: Soft, nontender, nondistended, normoactive bowel sounds. No palpable organomegaly. MUSCULOSKELETAL: No joint swelling or deformity. EXTREMITIES: No cyanosis, clubbing, or pedal edema. NEUROLOGICAL: Gross neurological examination did not reveal any focal deficits. SKIN: No rashes. Assessment and plan Generalized weakness UTI Acute kidney injury Paroxysmal atrial fibrillation Hypertension Monitor vital signs Monitor CBC Monitor CMP Continue telemetry monitoring Follow-up on blood cultures Follow-up urine cultures Continue IV Zerbaxa Consult ID Consult cardiology Resume home meds Labs and medication were reviewed.. Continue same treatment. Continue with symptomatic treatment. Resume home medication. Monitor labs and vitals. DVT and GI prophylaxis. 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 COLONOSCOPY. LAP BAND THEN HAD BARIATRIC SURGERY;. bladder surgery may have been for a benign cyst but is not sure. 16 LBS ABD. TISSUE REMOVED Past Anesthesia/Blood Transfusion Reactions: No Reported Reaction Past Psychological History: Anxiety, Depression Smoking Status: Never smoker Past Alcohol Use History: None Reported Past Drug Use History: None Reported - Past Family History Mother Family Medical History: Diabetes Mellitus Additional Family Medical History / Comment(s): At [facility] with UTI. Father Family Medical History: CVA/TIA, Diabetes Mellitus Sister(s) Family Medical History: Deep Vein Thrombosis (DVT) Medications and Allergies Home Medications Medication Instructions Recorded Confirmed Type Oxybutynin Chloride 5 mg PO BID 05/15/18 09/24/22 History Metoprolol Tartrate [Lopressor] 50 mg PO BID 02/28/20 09/24/22 History Albuterol Sulfate [Albuterol 2 puff PO RT-QID PRN 06/29/22 09/24/22 History Sulfate Hfa] Alendronate Sodium [Fosamax] 70 mg PO WE 06/29/22 09/24/22 History Benzonatate [Tessalon Perles] 100 mg PO TID PRN 06/29/22 09/24/22 History Apixaban [Eliquis] 5 mg PO BID #60 tab 07/05/22 09/24/22 Rx Acetaminophen Tab [Tylenol] 325 mg PO Q6HR PRN tab 07/07/22 09/24/22 Rx Calcium Carbonate [Tums] 1,000 mg PO BID tab 07/07/22 09/24/22 Rx Cholecalciferol [Vitamin D3 (125 125 mcg PO DAILY tab 07/07/22 09/24/22 Rx Mcg = 5000 Iu)] Famotidine [Pepcid] 20 mg PO BID #60 tablet 07/07/22 09/24/22 Rx Ipratropium-Albuterol Nebulize 3 ml INHALATION RT-QID PRN each 07/07/22 09/24/22 Rx [Duoneb 0.5 mg-3 mg/3 ml Soln] Loperamide [Imodium] 2 mg PO QID PRN cap 07/07/22 09/24/22 Rx Amiodarone [Cordarone] 200 mg PO BID 08/14/22 09/24/22 History Furosemide [Lasix] 20 mg PO DAILY 08/14/22 09/24/22 History buPROPion XL [Wellbutrin XL] 150 mg PO DAILY 09/24/22 09/24/22 History Allergies Allergy/AdvReac Type Severity Reaction Status Date / Time meperidine [From Demerol] AdvReac Nausea & Verified 09/24/22 07:27 Vomiting Penicillins AdvReac "FALLS Verified 09/24/22 07:27 ALOT"/Weakness Sulfa (Sulfonamide AdvReac Nausea & Verified 09/24/22 07:27 Antibiotics) Vomiting Physical Exam Vitals: Vital Signs Temp Pulse Pulse Resp BP BP Pulse Ox 09/24/22 08:04 65 09/24/22 08:03 98.4 F 65 16 101/65 97 09/24/22 06:51 97.8 F 60 16 105/63 100 09/24/22 06:04 61 16 99/56 98 09/24/22 05:15 60 16 75/46 98 09/24/22 02:00 61 16 09/24/22 00:55 97.5 F L 61 16 109/58 97 09/24/22 00:30 98.2 F 09/24/22 00:00 60 14 116/60 09/23/22 23:43 66 12 104/54 98 09/23/22 22:00 68 16 84/40 98 09/23/22 21:00 57 L 20 89/42 96 09/23/22 19:36 97.1 F L 67 18 86/46 98 Intake and Output 09/23/22 09/24/22 09/24/22 22:59 06:59 14:59 Intake Total 790 Balance 790 Intake: IV 10 Invasive Line 1 10 Oral 780 Other: Voiding Method External Catheter External Catheter Weight 81.647 kg 81.647 kg 61.5 kg Results CBC & Chem 7: 09/24/22 06:40 09/24/22 06:40 Labs: Abnormal Lab Results - Last 24 Hours (Table) 09/23/22 09/23/22 09/23/22 Range/Units 20:02 20:02 22:05 RBC 3.42 L (3.80-5.40) m/uL Hgb 10.1 L (11.4-16.0) gm/dL Hct 32.1 L (34.0-46.0) % RDW 20.4 H (11.5-15.5) % Sodium 133 L (137-145) mmol/L Chloride (98-107) mmol/L Carbon Dioxide 19 L (22-30) mmol/L BUN 30 H (7-17) mg/dL Creatinine 1.85 H (0.52-1.04) mg/dL Glucose 130 H (74-99) mg/dL Calcium 8.0 L (8.4-10.2) mg/dL AST 44 H (14-36) U/L Total Protein 5.1 L (6.3-8.2) g/dL Albumin 2.7 L (3.5-5.0) g/dL Urine Appearance Cloudy H (Clear) Urine Protein 1+ H (Negative) Urine Ketones Trace H (Negative) Urine Blood Trace H (Negative) Ur Leukocyte Esterase Large H (Negative) Urine RBC 13 H (0-5) /hpf Urine WBC >182 H (0-5) /hpf Urine Bacteria Moderate H (None) /hpf 09/24/22 Range/Units 06:40 RBC (3.80-5.40) m/uL Hgb (11.4-16.0) gm/dL Hct (34.0-46.0) % RDW (11.5-15.5) % Sodium 135 L (137-145) mmol/L Chloride 113 H (98-107) mmol/L Carbon Dioxide 15 L (22-30) mmol/L BUN 25 H (7-17) mg/dL Creatinine 1.43 H (0.52-1.04) mg/dL Glucose (74-99) mg/dL Calcium 7.0 L (8.4-10.2) mg/dL AST (14-36) U/L Total Protein (6.3-8.2) g/dL Albumin (3.5-5.0) g/dL Urine Appearance (Clear) Urine Protein (Negative) Urine Ketones (Negative) Urine Blood (Negative) Ur Leukocyte Esterase (Negative) Urine RBC (0-5) /hpf Urine WBC (0-5) /hpf Urine Bacteria (None) /hpf Thrombosis Risk Factor Assmnt - Choose All That Apply Any of the Below Risk Factors Present?: Yes Each Factor Represents 1 point: Obesity (BMI >25) Each Risk Factor Represents 2 Points: Age 61-74 years Thrombosis Risk Factor Assessment Total Risk Factor Score: 3 Thrombosis Risk Factor Assessment Level: Moderate Risk
[2022-09-24] MEDS: HYDROcodone/APAP 5-325MG 1 EACH TAB PO PRN ×2 (14:51→23:00)
--- NOTE | 2022-09-24 16:04 | US ---
EXAMINATION TYPE: US abdomen complete DATE OF EXAM: 09/24/2022 COMPARISON: CLINICAL INDICATION: Female, 71 years old with history of Abdominal pain, elevated LFTs; Abnormal lab s. GB removed. TECHNIQUE: Multiple sonographic images of the abdomen are obtained. FINDINGS: EXAM MEASUREMENTS: Liver Length: 16.0 cm CBD: 0.7 cm Right Kidney: 5.7 x 3.1 x 3.5 cm Left Kidney: 7.9 x 3.7 x 4.8 cm SHUTTLE VAN DRIVER NOTES: Limited exam due to patient body habitus and overlying bowel gas. Patient unab le to be positioned on sides. Pancreas: Head and tail obscured by overlying bowel gas. Echogenic in appearance. Liver: Increased attenuation, decreased visualization of vessels suggestive of fatty infiltrate. Ec hogenic. Heterogenous. Gallbladder: Surgically absent Evidence for sonographic Robert's sign: neg CBD: wnl Spleen: Obscured by overlying bowel gas Right Kidney: small in size, multiple echogenic foci seen with largest = 1.6 cm Left Kidney: Small in size. Multiple echogenic foci seen with largest= 0.7 cm Upper IVC: wnl Abd Aorta: distal obscured by overlying bowel gas IMPRESSION: 1. Limited examination due to body habitus. 2. Multiple nonobstructing renal stones.
[2022-09-24 16:27] LABS: Glucose,Whole Blood 100 mg/dL (70-110)
[2022-09-24 20:04] LABS: Glucose,Whole Blood 123 mg/dL (70-110)
[2022-09-24] MEDS: AMIODARONE 200 MG TAB PO SCH (20:42)
[2022-09-24] MEDS: METOPROLOL TARTRATE 50 MG TAB PO SCH (20:42)
--- NOTE | 2022-09-24 22:28 | P.CONS ---
History of Present Illness - Reason for Consult Consult date: 09/24/22 Complicated UTI Requesting physician: Servando Milian - Chief Complaint weakness x 2 days - History of Present Illness Patient is a 71-year-old female with a past medical history significant for recurrent urinary tract infection diabetes mellitus hyperlipidemia and history of recurrent UTI presenting to the hospital for evaluation of weakness and unable to get out of bathroom per the who provides most of the history patient was feeling very weak with no energy did have a urinary burning some suprapubic discomfort but no flank pain some nausea but no vomiting and no diarrhea with the symptoms the patient has been evaluated by the ER physician on arrival to the ER patient was afebrile and no fever has been recorded subsequently patient did have mild leukopenia BUN/creatinine was mildly elevated liver exams are normal patient did have a positive UA recent urine culture was positive for ESBL Klebsiella patient has been started on Zerbaxa infectious disease was consulted for further management of antibiotic therapy Review of Systems Positive point and negatives has been mentioned in the HPI, complete review of systems was performed and all other systems are negative Past Medical History Past Medical History: Diabetes Mellitus, Hypertension, Neurologic Disorder Additional Past Medical History / Comment(s): NEUROPATHY, MIGRAINES, fractured right shoulder, 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 COLONOSCOPY. LAP BAND THEN HAD BARIATRIC SURGERY;. bladder surgery may have been for a benign cyst but is not sure. 16 LBS ABD. TISSUE REMOVED Past Anesthesia/Blood Transfusion Reactions: No Reported Reaction Past Psychological History: Anxiety, Depression Smoking Status: Never smoker Past Alcohol Use History: None Reported Past Drug Use History: None Reported - Past Family History Mother Family Medical History: Diabetes Mellitus Additional Family Medical History / Comment(s): At [facility] with UTI. Father Family Medical History: CVA/TIA, Diabetes Mellitus Sister(s) Family Medical History: Deep Vein Thrombosis (DVT) Medications and Allergies Home Medications Medication Instructions Recorded Confirmed Type Oxybutynin Chloride 5 mg PO BID 05/15/18 09/24/22 History Metoprolol Tartrate [Lopressor] 50 mg PO BID 02/28/20 09/24/22 History Albuterol Sulfate [Albuterol 2 puff PO RT-QID PRN 06/29/22 09/24/22 History Sulfate Hfa] Alendronate Sodium [Fosamax] 70 mg PO WE 06/29/22 09/24/22 History Benzonatate [Tessalon Perles] 100 mg PO TID PRN 06/29/22 09/24/22 History Apixaban [Eliquis] 5 mg PO BID #60 tab 07/05/22 09/24/22 Rx Acetaminophen Tab [Tylenol] 325 mg PO Q6HR PRN tab 07/07/22 09/24/22 Rx Calcium Carbonate [Tums] 1,000 mg PO BID tab 07/07/22 09/24/22 Rx Cholecalciferol [Vitamin D3 (125 125 mcg PO DAILY tab 07/07/22 09/24/22 Rx Mcg = 5000 Iu)] Famotidine [Pepcid] 20 mg PO BID #60 tablet 07/07/22 09/24/22 Rx Ipratropium-Albuterol Nebulize 3 ml INHALATION RT-QID PRN each 07/07/22 09/24/22 Rx [Duoneb 0.5 mg-3 mg/3 ml Soln] Loperamide [Imodium] 2 mg PO QID PRN cap 07/07/22 09/24/22 Rx Amiodarone [Cordarone] 200 mg PO BID 08/14/22 09/24/22 History Furosemide [Lasix] 20 mg PO DAILY 08/14/22 09/24/22 History buPROPion XL [Wellbutrin XL] 150 mg PO DAILY 09/24/22 09/24/22 History Allergies Allergy/AdvReac Type Severity Reaction Status Date / Time meperidine [From Demerol] AdvReac Nausea & Verified 09/24/22 07:27 Vomiting Penicillins AdvReac "FALLS Verified 09/24/22 07:27 ALOT"/Weakness Sulfa (Sulfonamide AdvReac Nausea & Verified 09/24/22 07:27 Antibiotics) Vomiting Physical Exam Vitals: Vital Signs Temp Pulse Pulse Resp BP BP Pulse Ox 09/24/22 09:54 97 09/24/22 08:04 65 09/24/22 08:03 98.4 F 65 16 101/65 97 09/24/22 06:51 97.8 F 60 16 105/63 100 09/24/22 06:04 61 16 99/56 98 09/24/22 05:15 60 16 75/46 98 09/24/22 02:00 61 16 09/24/22 00:55 97.5 F L 61 16 109/58 97 09/24/22 00:30 98.2 F 09/24/22 00:00 60 14 116/60 09/23/22 23:43 66 12 104/54 98 09/23/22 22:00 68 16 84/40 98 09/23/22 21:00 57 L 20 89/42 96 09/23/22 19:36 97.1 F L 67 18 86/46 98 Intake and Output 09/23/22 09/24/22 09/24/22 22:59 06:59 14:59 Intake Total 790 Balance 790 Intake: IV 10 Invasive Line 1 10 Oral 780 Other: Voiding Method External Catheter External Catheter # Voids 1 Weight 81.647 kg 81.647 kg 61.5 kg GENERAL DESCRIPTION: Elderly female lying in bed, no distress. No tachypnea or accessory muscle of respiration use. HEENT: Shows Pallor , no scleral icterus. Oral mucous membrane is dry. No pharyngeal erythema or thrush NECK: Trachea central, no thyromegaly. LUNGS: Unlabored breathing. Clear to auscultation anteriorly. No wheeze or crackle. HEART: S1, S2, regular rate and rhythm. No loud murmur ABDOMEN: Soft, no tenderness , guarding or rigidity, no organomegaly EXTREMITIES: No edema of feet. SKIN: No rash, no masses palpable. NEUROLOGICAL: The patient is awake, alert, oriented x3, mood and affect normal. Results CBC & Chem 7: 09/24/22 06:40 09/24/22 06:40 Labs: Abnormal Lab Results - Last 24 Hours (Table) 09/23/22 09/23/22 09/23/22 Range/Units 20:02 20:02 22:05 WBC (3.8-10.6) k/uL RBC 3.42 L (3.80-5.40) m/uL Hgb 10.1 L (11.4-16.0) gm/dL Hct 32.1 L (34.0-46.0) % MCHC (31.0-37.0) g/dL RDW 20.4 H (11.5-15.5) % Lymphocytes # (1.0-4.8) k/uL Sodium 133 L (137-145) mmol/L Chloride (98-107) mmol/L Carbon Dioxide 19 L (22-30) mmol/L BUN 30 H (7-17) mg/dL Creatinine 1.85 H (0.52-1.04) mg/dL Glucose 130 H (74-99) mg/dL Calcium 8.0 L (8.4-10.2) mg/dL AST 44 H (14-36) U/L Total Protein 5.1 L (6.3-8.2) g/dL Albumin 2.7 L (3.5-5.0) g/dL Urine Appearance Cloudy H (Clear) Urine Protein 1+ H (Negative) Urine Ketones Trace H (Negative) Urine Blood Trace H (Negative) Ur Leukocyte Esterase Large H (Negative) Urine RBC 13 H (0-5) /hpf Urine WBC >182 H (0-5) /hpf Urine Bacteria Moderate H (None) /hpf 09/24/22 09/24/22 Range/Units 06:40 06:40 WBC 3.5 L (3.8-10.6) k/uL RBC 2.95 L (3.80-5.40) m/uL Hgb 8.6 L D (11.4-16.0) gm/dL Hct 29.3 L (34.0-46.0) % MCHC 29.3 L (31.0-37.0) g/dL RDW 20.5 H (11.5-15.5) % Lymphocytes # 0.9 L (1.0-4.8) k/uL Sodium 135 L (137-145) mmol/L Chloride 113 H (98-107) mmol/L Carbon Dioxide 15 L (22-30) mmol/L BUN 25 H (7-17) mg/dL Creatinine 1.43 H (0.52-1.04) mg/dL Glucose (74-99) mg/dL Calcium 7.0 L (8.4-10.2) mg/dL AST (14-36) U/L Total Protein (6.3-8.2) g/dL Albumin (3.5-5.0) g/dL Urine Appearance (Clear) Urine Protein (Negative) Urine Ketones (Negative) Urine Blood (Negative) Ur Leukocyte Esterase (Negative) Urine RBC (0-5) /hpf Urine WBC (0-5) /hpf Urine Bacteria (None) /hpf Assessment and Plan (1) UTI (urinary tract infection) Current Visit: Yes Status: Acute Code(s): N39.0 - URINARY TRACT INFECTION, SITE NOT SPECIFIED SNOMED Code(s): 83609092 Plan: 1patient presented to hospital with generalized weakness no energy urinary burning positive UA concerning for a symptomatic urinary tract infection with recent culture positive for ESBL Klebsiella, we will need to cover for the resistant gram-negative while waiting for the culture to finalize 2-patient to continue Zerbaxa while waiting for the culture to finalize 3-gentle IV fluid We will follow on clinical condition and cultures to further adjust medication if needed Thank you for this consultation we will follow the patient along with you Time with Patient: Greater than 30
[2022-09-25] MEDS: CEFTOLOZANE/TAZOBACTAM 1.5 GM in SODIUM CHLORIDE 0.9% 100 ML IV SCH ×4 (00:47→23:24)
[2022-09-25 06:23] LABS: Glucose,Whole Blood 105 mg/dL (70-110)
[2022-09-25 08:40] LABS: African American GFR (CKD) 47 (>60 ml/min/1.73 sqM); Anion Gap 9 mmol/L; Blood Urea Nitrogen 22 mg/dL (7-17); Calcium 7.3 mg/dL (8.4-10.2); Carbon Dioxide 16 mmol/L (22-30); Chloride 112 mmol/L (98-107); Glucose 98 mg/dL (74-99); Non-African American GFR(CKD) 41 (>60 ml/min/1.73 sqM); Sodium 137 mmol/L (137-145)
[2022-09-25] MEDS: AMIODARONE 200 MG TAB PO SCH ×2 (09:12→20:08)
[2022-09-25] MEDS: METOPROLOL TARTRATE 50 MG TAB PO SCH ×2 (09:12→20:09)
[2022-09-25] MEDS: HYDROcodone/APAP 5-325MG 1 EACH TAB PO PRN (09:12)
[2022-09-25] MEDS: APIXABAN 5 MG TAB PO SCH ×2 (09:12→20:08)
[2022-09-25] MEDS: buPROPion XL 150 MG TAB.ER.24H PO SCH (09:13)
[2022-09-25 11:22] LABS: Glucose,Whole Blood 116 mg/dL (70-110)
--- NOTE | 2022-09-25 13:35 | P.PN ---
Subjective Progress Note Date: 09/25/22 PROGRESS NOTE The patient is a 71-year-old female with a history of mild nonischemic cardiomyopathy, hypertension, hyperlipidemia, paroxysmal atrial fibrillation who presented with urinary tract infection, paroxysmal atrial fibrillation and hypotension. She is back in sinus mechanism. She feels better. She denies any chest discomfort, dizziness or palpitations or it she denies any nausea. She continues to be in sinus mechanism. Medications: Amiodarone 200 mg twice a day, metoprolol 50 mg twice a day, Eliquis 5 mg twice a day PHYSICAL EXAMINATION: Blood pressure 105/60 heart rate 60 LUNGS: Clear to auscultation HEART: Regular rate and rhythm, S1, S2. No S3. Systolic ejection murmur ABDOMEN: Soft, nontender, no organomegaly EXTREMETIES: No edema LAB: BUN 22, creatinine 1.31, potassium 5.0 IMPRESSION: 1. Paroxysmal atrial fibrillation, maintaining sinus mechanism 2. UTI 3. Acute renal injury improving 4. Mild cardiomyopathy PLAN: 1. Continue present therapy 2. Increase physical activity 3. Follow her renal functions 4. If stable probable discharge in 24-48 hours Objective - Vital Signs Vital signs: Vital Signs Temp 97.9 F 09/25/22 11:50 Pulse 60 09/25/22 11:50 Resp 18 09/25/22 11:50 BP 105/66 09/25/22 11:50 Pulse Ox 97 09/25/22 11:50 FiO2 Intake & Output 09/24/22 09/25/22 09/25/22 18:59 06:59 18:59 Intake Total 990 0 Output Total 550 Balance 990 -550 0 Weight 61.5 kg Intake: IV 10 Invasive Line 1 10 Oral 980 0 Output: Urine 550 Other: Voiding Method External Catheter External Catheter External Catheter # Voids 1 # Bowel Movements 2 1 - Labs CBC & Chem 7: 09/24/22 06:40 09/25/22 07:42 Labs: Abnormal Lab Results - Last 24 Hours (Table) 09/24/22 09/25/22 09/25/22 Range/Units 19:59 07:42 11:21 Chloride 112 H (98-107) mmol/L Carbon Dioxide 16 L (22-30) mmol/L BUN 22 H (7-17) mg/dL Creatinine 1.31 H (0.52-1.04) mg/dL POC Glucose (mg/dL) 123 H 116 H (70-110) mg/dL Calcium 7.3 L (8.4-10.2) mg/dL Microbiology - Last 24 Hours (Table) 09/23/22 23:15 Blood Culture - Preliminary Blood 09/23/22 23:00 Blood Culture - Preliminary Blood
--- NOTE | 2022-09-25 13:39 | P.PN ---
Subjective Progress Note Date: 09/25/22 patient 71-year-old lady with past medical significant for hypertension, hyperlipidemia, paroxysmal atrial fibrillation ablation presented to the ER because of generalized weakness. Patient has been complaining of back pain and neck pain for which she has been following up outpatient with PCP who ran some x-rays but was inconclusive. Patient was at home and was getting more and more weak, today she was unable to get up from the toilet. Patient denies any fever or chills. There is no complaint of lightheadedness or dizziness. Denies any nausea or vomiting. Denies any chest pain or shortness of breath. No complaint of orthopnea or PND. Because of this generalized weakness, patient came to the ER Initial lab work done in the ER showed WBC 5.5, hemoglobin 10.1, platelet count 218, sodium 133, potassium 4.7, BUN 30, creatinine 1.85, UA showed leukocyte Estrace positive, urine WBC more than 182 CT cervical spine negative for any acute fractures Patient admitted to medicine service 09/25. Patient seen and examined. States she feels much better. Denies any lightheadedness or dizziness REVIEW OF SYSTEMS: CONSTITUTIONAL: No fever, no malaise,. CARDIOVASCULAR: No chest pain, no palpitations, no syncope. PULMONARY: No shortness of breath, no cough, GASTROINTESTINAL: No diarrhea, no nausea, no vomiting, no abdominal pain. NEUROLOGICAL: No headaches, no weakness, PHYSICAL EXAMINATION: GENERAL: The patient is alert and oriented x3, not in any acute distress. Well developed, well nourished. HEENT: Pupils are round and equally reacting to light. EOMI. No scleral icterus. No conjunctival pallor. Normocephalic, atraumatic. No pharyngeal erythema. No thyromegaly. CARDIOVASCULAR: S1 and S2 present. No murmurs, rubs, or gallops. PULMONARY: Chest is clear to auscultation, no wheezing or crackles. ABDOMEN: Soft, nontender, nondistended, normoactive bowel sounds. No palpable organomegaly. MUSCULOSKELETAL: No joint swelling or deformity. EXTREMITIES: No cyanosis, clubbing, or pedal edema. NEUROLOGICAL: Gross neurological examination did not reveal any focal deficits. SKIN: No rashes. Assessment and plan Generalized weakness UTI Acute kidney injury Paroxysmal atrial fibrillation Hypertension Monitor vital signs Monitor CBC Monitor CMP Follow-up on blood cultures Follow-up urine cultures Continue IV Zerbaxa DC fluids Cardiology evaluated the patient recommended keeping patient on current cardiac medications ID following Labs and medication were reviewed.. Continue same treatment. Continue with symptomatic treatment. Resume home medication. Monitor labs and vitals. DVT and GI prophylaxis. Further recommendations as per clinical course of the patient Objective - Vital Signs Vital signs: Vital Signs Temp 98 F 09/24/22 20:00 Pulse 68 09/25/22 09:09 Resp 18 09/25/22 09:09 BP 84/54 09/25/22 09:09 Pulse Ox 98 09/25/22 09:09 FiO2 Intake & Output 09/24/22 09/25/22 09/25/22 18:59 06:59 18:59 Intake Total 990 0 Output Total 550 Balance 990 -550 0 Weight 61.5 kg Intake: IV 10 Invasive Line 1 10 Oral 980 0 Output: Urine 550 Other: Voiding Method External Catheter External Catheter External Catheter # Voids 1 # Bowel Movements 2 1 - Labs CBC & Chem 7: 09/24/22 06:40 09/25/22 07:42 Labs: Abnormal Lab Results - Last 24 Hours (Table) 09/24/22 09/25/22 Range/Units 19:59 07:42 Chloride 112 H (98-107) mmol/L Carbon Dioxide 16 L (22-30) mmol/L BUN 22 H (7-17) mg/dL Creatinine 1.31 H (0.52-1.04) mg/dL POC Glucose (mg/dL) 123 H (70-110) mg/dL Calcium 7.3 L (8.4-10.2) mg/dL Microbiology - Last 24 Hours (Table) 09/23/22 23:15 Blood Culture - Preliminary Blood 09/23/22 23:00 Blood Culture - Preliminary Blood
[2022-09-25 16:25] LABS: Glucose,Whole Blood 115 mg/dL (70-110)
[2022-09-25 20:12] LABS: Glucose,Whole Blood 102 mg/dL (70-110)
[2022-09-25] MEDS: ACETAMINOPHEN TAB 325 MG TAB PO PRN (23:27)
[2022-09-26] MEDS: ACETAMINOPHEN TAB 325 MG TAB PO PRN ×2 (06:06→16:17)
[2022-09-26 06:21] LABS: Glucose,Whole Blood 107 mg/dL (70-110)
[2022-09-26 07:39] LABS: Anisocytosis Moderate; Basophils % (A) 0 %; Eosinophils # (A) 0.1 k/uL (0-0.7); Eosinophils % (A) 3 %; HCT 31.7 % (34.0-46.0); HGB 9.8 gm/dL (11.4-16.0); Hypochromasia Marked; Lymphocytes # (A) 1.5 k/uL (1.0-4.8); Lymphocytes % (A) 31 %; Macrocytosis Moderate; Mean Platelet Volume 8.3; Monocytes # (A) 0.4 k/uL (0-1.0); Monocytes % (A) 8 %; Neutrophils # (A) 2.6 k/uL (1.3-7.7); Neutrophils % (A) 55 %; Platelet Count 212 k/uL (150-450); RBC 3.26 m/uL (3.80-5.40); RDW 21.6 % (11.5-15.5); WBC 4.7 k/uL (3.8-10.6)
[2022-09-26 07:44] LABS: African American GFR (CKD) 47 (>60 ml/min/1.73 sqM); Anion Gap 8 mmol/L; Blood Urea Nitrogen 20 mg/dL (7-17); Calcium 7.3 mg/dL (8.4-10.2); Carbon Dioxide 16 mmol/L (22-30); Chloride 113 mmol/L (98-107); Glucose 100 mg/dL (74-99); Non-African American GFR(CKD) 41 (>60 ml/min/1.73 sqM); Potassium 4.8 mmol/L (3.5-5.1); Sodium 137 mmol/L (137-145)
[2022-09-26] MEDS: APIXABAN 5 MG TAB PO SCH ×2 (08:38→21:55)
[2022-09-26] MEDS: METOPROLOL TARTRATE 50 MG TAB PO SCH ×2 (08:38→21:56)
[2022-09-26] MEDS: AMIODARONE 200 MG TAB PO SCH ×2 (08:39→21:55)
[2022-09-26] MEDS: buPROPion XL 150 MG TAB.ER.24H PO SCH (08:39)
[2022-09-26] MEDS: CEFTOLOZANE/TAZOBACTAM 1.5 GM in SODIUM CHLORIDE 0.9% 100 ML IV SCH ×2 (09:37→16:18)
[2022-09-26 11:26] LABS: Glucose,Whole Blood 116 mg/dL (70-110)
[2022-09-26] MEDS ORDERED: MAG HYDROX/AL HYDROX/SIMETH 30 ML CUP PO PRN (11:54)
--- NOTE | 2022-09-26 13:22 | P.PN ---
Subjective Progress Note Date: 09/26/22 patient 71-year-old lady with past medical significant for hypertension, hyperlipidemia, paroxysmal atrial fibrillation ablation presented to the ER because of generalized weakness. Patient has been complaining of back pain and neck pain for which she has been following up outpatient with PCP who ran some x-rays but was inconclusive. Patient was at home and was getting more and more weak, today she was unable to get up from the toilet. Patient denies any fever or chills. There is no complaint of lightheadedness or dizziness. Denies any nausea or vomiting. Denies any chest pain or shortness of breath. No complaint of orthopnea or PND. Because of this generalized weakness, patient came to the ER Initial lab work done in the ER showed WBC 5.5, hemoglobin 10.1, platelet count 218, sodium 133, potassium 4.7, BUN 30, creatinine 1.85, UA showed leukocyte Estrace positive, urine WBC more than 182 CT cervical spine negative for any acute fractures Patient admitted to medicine service 09/25. Patient seen and examined. States she feels much better. Denies any lightheadedness or dizziness 09/26. Patient seen and examined. Patient complaining of left lower quadrant ab dominal pain. REVIEW OF SYSTEMS: CONSTITUTIONAL: No fever, no malaise,. CARDIOVASCULAR: No chest pain, no palpitations, no syncope. PULMONARY: No shortness of breath, no cough, GASTROINTESTINAL: No diarrhea, no nausea, no vomiting NEUROLOGICAL: No headaches, no weakness, PHYSICAL EXAMINATION: GENERAL: The patient is alert and oriented x3, not in any acute distress. Well developed, well nourished. HEENT: Pupils are round and equally reacting to light. EOMI. No scleral icterus. No conjunctival pallor. Normocephalic, atraumatic. No pharyngeal erythema. No thyromegaly. CARDIOVASCULAR: S1 and S2 present. No murmurs, rubs, or gallops. PULMONARY: Chest is clear to auscultation, no wheezing or crackles. ABDOMEN: Soft, nontender, nondistended, normoactive bowel sounds. No palpable organomegaly. MUSCULOSKELETAL: No joint swelling or deformity. EXTREMITIES: No cyanosis, clubbing, or pedal edema. NEUROLOGICAL: Gross neurological examination did not reveal any focal deficits. SKIN: No rashes. Assessment and plan Generalized weakness UTI Acute kidney injury Paroxysmal atrial fibrillation Hypertension Monitor vital signs Monitor CBC Monitor CMP Follow-up on blood cultures Follow-up urine cultures Continue IV Zerbaxa Order CT abdomen and pelvis without contrast Cardiology evaluated the patient recommended keeping patient on current cardiac medications ID following Labs and medication were reviewed.. Continue same treatment. Continue with symptomatic treatment. Resume home medication. Monitor labs and vitals. DVT and GI prophylaxis. Further recommendations as per clinical course of the patient Objective - Vital Signs Vital signs: Vital Signs Temp 97.3 F L 09/26/22 08:22 Pulse 75 09/26/22 08:22 Resp 16 09/26/22 08:22 BP 98/66 09/26/22 08:22 Pulse Ox 98 09/26/22 09:22 FiO2 Intake & Output 09/25/22 09/26/22 09/26/22 18:59 06:59 18:59 Intake Total 0 110 Output Total 350 550 200 Balance -350 -550 -90 Intake: Oral 0 110 Output: Urine 350 550 200 Other: Voiding Method External Catheter External Catheter External Catheter # Voids 1 # Bowel Movements 1 - Labs CBC & Chem 7: 09/26/22 07:01 09/26/22 07:01 Labs: Abnormal Lab Results - Last 24 Hours (Table) 09/25/22 09/25/22 09/26/22 Range/Units 11:21 16:21 07:01 RBC (3.80-5.40) m/uL Hgb (11.4-16.0) gm/dL Hct (34.0-46.0) % RDW (11.5-15.5) % Chloride 113 H (98-107) mmol/L Carbon Dioxide 16 L (22-30) mmol/L BUN 20 H (7-17) mg/dL Creatinine 1.32 H (0.52-1.04) mg/dL Glucose 100 H (74-99) mg/dL POC Glucose (mg/dL) 116 H 115 H (70-110) mg/dL Calcium 7.3 L (8.4-10.2) mg/dL 09/26/22 Range/Units 07:01 RBC 3.26 L (3.80-5.40) m/uL Hgb 9.8 L (11.4-16.0) gm/dL Hct 31.7 L (34.0-46.0) % RDW 21.6 H (11.5-15.5) % Chloride (98-107) mmol/L Carbon Dioxide (22-30) mmol/L BUN (7-17) mg/dL Creatinine (0.52-1.04) mg/dL Glucose (74-99) mg/dL POC Glucose (mg/dL) (70-110) mg/dL Calcium (8.4-10.2) mg/dL Microbiology - Last 24 Hours (Table) 09/23/22 23:15 Blood Culture - Preliminary Blood 09/23/22 23:00 Blood Culture - Preliminary Blood
--- NOTE | 2022-09-26 13:25 | P.PN ---
Subjective Progress Note Date: 09/26/22 The patient is a 71-year-old female with a history of mild nonischemic cardiomyopathy, hypertension, hyperlipidemia, paroxysmal atrial fibrillation who presented with urinary tract infection, paroxysmal atrial fibrillation and hypotension. She is maintaining sinus mechanism. She feels fairly well overall . She denies any chest discomfort, dizziness or palpitations or it she denies any nausea. Objective - Vital Signs Vital signs: Vital Signs Temp 97.5 F L 09/26/22 11:32 Pulse 56 L 09/26/22 11:32 Resp 16 09/26/22 11:32 BP 112/57 09/26/22 11:32 Pulse Ox 100 09/26/22 11:32 FiO2 Intake & Output 09/25/22 09/26/22 09/26/22 18:59 06:59 18:59 Intake Total 0 220 Output Total 350 550 200 Balance -350 -550 20 Intake: Oral 0 220 Output: Urine 350 550 200 Other: Voiding Method External Catheter External Catheter External Catheter # Voids 1 # Bowel Movements 1 - Exam LUNGS: Clear to auscultation HEART: Regular rate and rhythm, S1, S2. No S3. Systolic ejection murmur ABDOMEN: Soft, nontender, no organomegaly EXTREMETIES: No edema - Labs CBC & Chem 7: 09/26/22 07:01 09/26/22 07:01 Labs: Abnormal Lab Results - Last 24 Hours (Table) 09/25/22 09/26/22 09/26/22 Range/Units 16:21 07:01 07:01 RBC 3.26 L (3.80-5.40) m/uL Hgb 9.8 L (11.4-16.0) gm/dL Hct 31.7 L (34.0-46.0) % RDW 21.6 H (11.5-15.5) % Chloride 113 H (98-107) mmol/L Carbon Dioxide 16 L (22-30) mmol/L BUN 20 H (7-17) mg/dL Creatinine 1.32 H (0.52-1.04) mg/dL Glucose 100 H (74-99) mg/dL POC Glucose (mg/dL) 115 H (70-110) mg/dL Calcium 7.3 L (8.4-10.2) mg/dL 09/26/22 Range/Units 11:24 RBC (3.80-5.40) m/uL Hgb (11.4-16.0) gm/dL Hct (34.0-46.0) % RDW (11.5-15.5) % Chloride (98-107) mmol/L Carbon Dioxide (22-30) mmol/L BUN (7-17) mg/dL Creatinine (0.52-1.04) mg/dL Glucose (74-99) mg/dL POC Glucose (mg/dL) 116 H (70-110) mg/dL Calcium (8.4-10.2) mg/dL Microbiology - Last 24 Hours (Table) 09/23/22 23:15 Blood Culture - Preliminary Blood 09/23/22 23:00 Blood Culture - Preliminary Blood Assessment and Plan Assessment: 1. Paroxysmal atrial fibrillation, maintaining sinus mechanism 2. UTI 3. Acute renal injury improving 4. Mild cardiomyopathy Plan: From cardiology's perspective medications were reviewed we will continue the same. Continue to increase physical activity as tolerated. Continue to follow renal function and electrolytes. Anticipate discharge in the next 24-48 hours. We will continue to follow the patient might further recommendations accordingly. APPLIANCE SERVICER note has been reviewed, I agree with a documented findings and plan of care. Patient was seen and examined.
[2022-09-26 16:24] LABS: Glucose,Whole Blood 133 mg/dL (70-110)
--- NOTE | 2022-09-26 18:09 | CT ---
EXAMINATION TYPE: CT abdomen pelvis wo con DATE OF EXAM: 09/26/2022 COMPARISON: 06/29/2022 HISTORY: 71-year-old female with Abdominal pain CT DLP: 659.1 mGycm. Automated exposure control for dose reduction was used. TECHNIQUE: Contiguous axial scanning of the abdomen and pelvis without IV contrast. Coronal and sagit ruma reconstructions performed. FINDINGS: Moderate generalized anasarca unchanged. Heart is borderline enlarged. There is a moderate right pleural effusion and prominent adjacent atele ctasis and/or consolidation. Tiny hiatal hernia. Postsurgical change along the stomach of sleeve gastrectomy. Hepatomegaly and 21.9 cm with marked diminished attenuation. Cholecystectomy clips. Adrenal glands, spleen, and atrophic pancreas show no gross abnormality. Atrophic right kidney with multiple calculi measuring up to 1.3 cm. On the left, there are approximately 5 nonobstructive stones measuring up to 7 mm. There is also mild left-sided hydronephrosis with a dominant 6 mm stone in the distal left ureter along with probably m ore smaller punctate calculi just adjacent, refer to coronal image 59. No dilated small bowel, free fluid, or free air. No mesenteric or retroperitoneal lymphadenopathy. Mild to moderate stool burden. No pericolonic inflammatory change Bladder urine distended. Mild pelvic floor relaxation. Uterus surgically absent. Surgical clips in th e pelvis. Neither ovary clearly identified. Presacral edema. Trace cul-de-sac free fluid. No pelvic l ymphadenopathy seen. Osteopenia. Facet arthropathy mid to lower lumbar spine. IMPRESSION: 1. Correlate for third spacing/fluid overload state given generalized anasarca change. There is also a moderate right pleural effusion with adjacent atelectasis and/or consolidation. 2. Clustered calculi measuring up to 6 mm in the distal left ureter contributing to mild obstructive uropathy. 3. Additional bilateral nonobstructive renal calculi measuring up to 1.3 cm. 4. Hepatomegaly (21.9 cm) with a severe hepatic steatosis.
[2022-09-26 20:04] LABS: Glucose,Whole Blood 162 mg/dL (70-110)
[2022-09-26] MEDS ORDERED: SODIUM CHLORIDE 0.9% 500 ML 500 ML IV ONE (21:20)
[2022-09-26] MEDS ORDERED: MIDODRINE 5 MG TAB PO SCH (21:24)
--- NOTE | 2022-09-26 21:54 | XR ---
EXAMINATION TYPE: XR chest 1V DATE OF EXAM: 09/26/2022 9:45 PM COMPARISON: Chest radiographs from 06/30/2022 TECHNIQUE: XR chest 1V Frontal view of the chest. CLINICAL INDICATION:Female, 71 years old with history of right pleural effusion; FINDINGS: Lungs/Pleura: Small right pleural effusion There is no evidence of left pleural effusion, focal conso lidation, or pneumothorax. Pulmonary vascularity: Unremarkable. Heart/mediastinum: Cardiomediastinal silhouette is unremarkable. Musculoskeletal: No acute osseous pathology. IMPRESSION: Small right pleural effusion with cardiomegaly. Correlate with serum BNP.
[2022-09-27] MEDS: CEFTOLOZANE/TAZOBACTAM 1.5 GM in SODIUM CHLORIDE 0.9% 100 ML IV SCH ×4 (01:58→23:42)
[2022-09-27] MEDS: ACETAMINOPHEN TAB 325 MG TAB PO PRN ×3 (02:04→22:34)
[2022-09-27 06:21] LABS: Glucose,Whole Blood 146 mg/dL (70-110)
[2022-09-27] MEDS: APIXABAN 5 MG TAB PO SCH ×2 (10:34→20:37)
[2022-09-27] MEDS: buPROPion XL 150 MG TAB.ER.24H PO SCH (10:34)
[2022-09-27] MEDS: AMIODARONE 200 MG TAB PO SCH (10:35)
[2022-09-27] MEDS: METOPROLOL TARTRATE 50 MG TAB PO SCH (10:38)
[2022-09-27 11:29] LABS: Glucose,Whole Blood 139 mg/dL (70-110)
--- NOTE | 2022-09-27 13:09 | P.PN ---
Subjective Progress Note Date: 09/27/22 History of present illness: This is a 71-year-old female with a history of mild nonischemic cardiomyopathy, hypertension, hyperlipidemia, paroxysmal atrial fibrillation who presented with urinary tract infection, paroxysmal atrial fibrillation and hypotension. She is maintaining sinus mechanism. She feels fairly well overall. She denies any chest discomfort, dizziness or palpitations or it she denies any nausea. Physical examination: LUNGS: Clear to auscultation HEART: Regular rate and rhythm, S1, S2. No S3. Systolic ejection murmur ABDOMEN: Soft, nontender, no organomegaly EXTREMETIES: No edema Assessment: 1. Paroxysmal atrial fibrillation, maintaining sinus mechanism 2. UTI 3. Acute renal injury improving 4. Mild cardiomyopathy Plan: continue current cardiac medications Patient is cleared from cardiology for discharge home. We will decrease amiodarone 200 mg 2 frequency of once daily. patient may follow-up in the office in one week. Nurse practitioner note has been reviewed, I agree with documented findings and plan of care. Patient was seen and examined. Objective - Vital Signs Vital signs: Vital Signs Temp 98.1 F 09/27/22 08:00 Pulse 65 09/27/22 08:00 Resp 18 09/27/22 08:00 BP 88/57 09/27/22 08:00 Pulse Ox 97 09/27/22 08:05 FiO2 Intake & Output 09/26/22 09/27/22 09/27/22 18:59 06:59 18:59 Intake Total 700 240 Output Total 200 250 Balance 500 -10 Intake: Oral 700 240 Output: Urine 200 250 Other: Voiding Method External Catheter External Catheter External Catheter # Voids 1 - Labs CBC & Chem 7: 09/26/22 07:01 09/26/22 07:01 Labs: Abnormal Lab Results - Last 24 Hours (Table) 09/26/22 09/26/22 09/27/22 Range/Units 16:22 20:01 06:17 POC Glucose (mg/dL) 133 H 162 H 146 H (70-110) mg/dL 09/27/22 Range/Units 11:28 POC Glucose (mg/dL) 139 H (70-110) mg/dL Microbiology - Last 24 Hours (Table) 09/23/22 23:15 Blood Culture - Preliminary Blood 09/23/22 23:00 Blood Culture - Preliminary Blood
--- NOTE | 2022-09-27 13:22 | P.PN ---
Subjective Progress Note Date: 09/25/22 Principal diagnosis: Urinary tract infection Patient is a 71-year-old female with a past medical history significant for recurrent urinary tract infection diabetes mellitus hyperlipidemia and history of recurrent UTI presenting to the hospital for evaluation of weakness and unable to get out of bathroom, patient did have a positive UA with a history of ESBL patient was started on Zerbexa pending cultures. On today's evaluation that is 09/25/2022, the patient denies having any fever or any chills, the patient is breathing comfortably on room air, temperature [address] pain shortness of breath or cough no abdominal pain no diarrhea Objective - Vital Signs Vital signs: Vital Signs Temp 97.9 F 09/25/22 11:50 Pulse 60 09/25/22 11:50 Resp 18 09/25/22 11:50 BP 105/66 09/25/22 11:50 Pulse Ox 97 09/25/22 11:50 FiO2 Intake & Output 09/24/22 09/25/22 09/25/22 18:59 06:59 18:59 Intake Total 990 0 Output Total 550 Balance 990 -550 0 Weight 61.5 kg Intake: IV 10 Invasive Line 1 10 Oral 980 0 Output: Urine 550 Other: Voiding Method External Catheter External Catheter External Catheter # Voids 1 # Bowel Movements 2 1 - Exam GENERAL DESCRIPTION: An elderly female up in the chair in no distress RESPIRATORY SYSTEM: Unlabored breathing , decreased breath sounds at bases HEART: S1 S2 regular rate and rhythm , ABDOMEN: Soft , no tenderness EXTREMITIES: No edema feet - Labs CBC & Chem 7: 09/26/22 07:01 09/26/22 07:01 Labs: Abnormal Lab Results - Last 24 Hours (Table) 09/24/22 09/25/22 09/25/22 Range/Units 19:59 07:42 11:21 Chloride 112 H (98-107) mmol/L Carbon Dioxide 16 L (22-30) mmol/L BUN 22 H (7-17) mg/dL Creatinine 1.31 H (0.52-1.04) mg/dL POC Glucose (mg/dL) 123 H 116 H (70-110) mg/dL Calcium 7.3 L (8.4-10.2) mg/dL Microbiology - Last 24 Hours (Table) 09/23/22 23:15 Blood Culture - Preliminary Blood 09/23/22 23:00 Blood Culture - Preliminary Blood Assessment and Plan (1) UTI (urinary tract infection) Current Visit: Yes Status: Acute Code(s): N39.0 - URINARY TRACT INFECTION, SITE NOT SPECIFIED SNOMED Code(s): 55351664 Plan: 1patient presented to hospital with generalized weakness no energy urinary burning positive UA concerning for a symptomatic urinary tract infection with recent culture positive for ESBL Klebsiella, we will need to cover for the resistant gram-negative while waiting for the culture to finalize 2-patient abdominal ultrasound shows multiple nonobstructing renal stone 3-patient to continue Zerbaxa while waiting for the cultures to finalize Time with Patient: Less than 30
--- NOTE | 2022-09-27 13:24 | P.PN ---
Subjective Progress Note Date: 09/27/22 Principal diagnosis: Urinary tract infection Patient is a 71-year-old female with a past medical history significant for recurrent urinary tract infection diabetes mellitus hyperlipidemia and history of recurrent UTI presenting to the hospital for evaluation of weakness and unable to get out of bathroom, patient did have a positive UA with a history of ESBL patient was started on Zerbexa pending cultures. On today's evaluation that is 09/27/2022, the patient remains to be febrile, the patient is breathing comfortably on room air, the patient denies chest pain shor tness of breath or cough, the patient still have some left lower abdominal pain no nausea no vomiting or diarrhea Objective - Vital Signs Vital signs: Vital Signs Temp 97.8 F 09/26/22 20:00 Pulse 67 09/27/22 04:00 Resp 16 09/27/22 04:00 BP 91/52 09/27/22 04:00 Pulse Ox 97 09/27/22 08:05 FiO2 Intake & Output 09/26/22 09/27/22 09/27/22 18:59 06:59 18:59 Intake Total 700 240 Output Total 200 250 Balance 500 -10 Intake: Oral 700 240 Output: Urine 200 250 Other: Voiding Method External Catheter External Catheter # Voids 1 - Exam GENERAL DESCRIPTION: An elderly female up in the chair in no distress RESPIRATORY SYSTEM: Unlabored breathing , decreased breath sounds at bases HEART: S1 S2 regular rate and rhythm , ABDOMEN: Soft , no tenderness EXTREMITIES: No edema feet - Labs CBC & Chem 7: 09/26/22 07:01 09/26/22 07:01 Labs: Abnormal Lab Results - Last 24 Hours (Table) 09/26/22 09/26/22 09/26/22 Range/Units 11:24 16:22 20:01 POC Glucose (mg/dL) 116 H 133 H 162 H (70-110) mg/dL 09/27/22 Range/Units 06:17 POC Glucose (mg/dL) 146 H (70-110) mg/dL Microbiology - Last 24 Hours (Table) 09/23/22 23:15 Blood Culture - Preliminary Blood 09/23/22 23:00 Blood Culture - Preliminary Blood Assessment and Plan (1) UTI (urinary tract infection) Current Visit: Yes Status: Acute Code(s): N39.0 - URINARY TRACT INFECTION, SITE NOT SPECIFIED SNOMED Code(s): 64404076 Plan: 1patient presented to hospital with generalized weakness no energy urinary burning positive UA concerning for a symptomatic urinary tract infection with recent culture positive for ESBL Klebsiella, we will need to cover for the resistant gram-negative while waiting for the culture to finalize 2-patient abdominal ultrasound shows multiple nonobstructing renal stone, CT of abdominal pelvis did shows third spacing clustered calculi mild obstructive uropathy 3-patient blood culture was to be negative urine culture were not sent initially has been sent last night and will be followed 4-patient to continue Zerbaxa while waiting for the cultures to finalize Time with Patient: Less than 30
--- NOTE | 2022-09-27 13:39 | P.PN ---
Subjective Progress Note Date: 09/27/22 patient 71-year-old lady with past medical significant for hypertension, hyperlipidemia, paroxysmal atrial fibrillation ablation presented to the ER because of generalized weakness. Patient has been complaining of back pain and neck pain for which she has been following up outpatient with PCP who ran some x-rays but was inconclusive. Patient was at home and was getting more and more weak, today she was unable to get up from the toilet. Patient denies any fever or chills. There is no complaint of lightheadedness or dizziness. Denies any nausea or vomiting. Denies any chest pain or shortness of breath. No complaint of orthopnea or PND. Because of this generalized weakness, patient came to the ER Initial lab work done in the ER showed WBC 5.5, hemoglobin 10.1, platelet count 218, sodium 133, potassium 4.7, BUN 30, creatinine 1.85, UA showed leukocyte Estrace positive, urine WBC more than 182 CT cervical spine negative for any acute fractures Patient admitted to medicine service 09/25. Patient seen and examined. States she feels much better. Denies any lightheadedness or dizziness 09/26. Patient seen and examined. Patient complaining of left lower quadrant ab dominal pain. 09/27. Patient seen and examined. CT abdominal pelvis done because of patient's current pain of lower quadrant abdominal pain showed clustered calculi measuring up to 6 mm the distal left ureter contributing to mild obstructive uropathy. Patient blood pressure was a little over night, reduced dose of Lopressor to 25 mg twice a day REVIEW OF SYSTEMS: CONSTITUTIONAL: No fever, no malaise,. CARDIOVASCULAR: No chest pain, no palpitations, no syncope. PULMONARY: No shortness of breath, no cough, GASTROINTESTINAL: No diarrhea, no nausea, no vomiting NEUROLOGICAL: No headaches, no weakness, PHYSICAL EXAMINATION: GENERAL: The patient is alert and oriented x3, not in any acute distress. Well developed, well nourished. HEENT: Pupils are round and equally reacting to light. EOMI. No scleral icterus. No conjunctival pallor. Normocephalic, atraumatic. No pharyngeal erythema. No thyromegaly. CARDIOVASCULAR: S1 and S2 present. No murmurs, rubs, or gallops. PULMONARY: Chest is clear to auscultation, no wheezing or crackles. ABDOMEN: Soft, nontender, nondistended, normoactive bowel sounds. No palpable organomegaly. MUSCULOSKELETAL: No joint swelling or deformity. EXTREMITIES: No cyanosis, clubbing, or pedal edema. NEUROLOGICAL: Gross neurological examination did not reveal any focal deficits. SKIN: No rashes. Assessment and plan Generalized weakness UTI Acute kidney injury Obstructive uropathy of distal left ureter Paroxysmal atrial fibrillation Hypertension Monitor vital signs Monitor CBC Monitor CMP Follow-up on blood cultures Follow-up urine cultures Continue IV Zerbaxa CT abdomen and pelvis without contrast showed clustered calculi measuring up to 6 mm the distal left ureter contributing to mild obstructive uropathy urology consulted Cardiology evaluated the patient recommended keeping patient on current cardiac medications ID following Labs and medication were reviewed.. Continue same treatment. Continue with symptomatic treatment. Resume home medication. Monitor labs and vitals. DVT and GI prophylaxis. Further recommendations as per clinical course of the patient Objective - Vital Signs Vital signs: Vital Signs Temp 97.8 F 09/26/22 20:00 Pulse 67 09/27/22 04:00 Resp 16 09/27/22 04:00 BP 91/52 09/27/22 04:00 Pulse Ox 97 09/27/22 08:05 FiO2 Intake & Output 09/26/22 09/27/22 09/27/22 18:59 06:59 18:59 Intake Total 700 240 Output Total 200 250 Balance 500 -10 Intake: Oral 700 240 Output: Urine 200 250 Other: Voiding Method External Catheter External Catheter # Voids 1 - Labs CBC & Chem 7: 09/26/22 07:01 09/26/22 07:01 Labs: Abnormal Lab Results - Last 24 Hours (Table) 09/26/22 09/26/22 09/26/22 Range/Units 11:24 16:22 20:01 POC Glucose (mg/dL) 116 H 133 H 162 H (70-110) mg/dL 09/27/22 Range/Units 06:17 POC Glucose (mg/dL) 146 H (70-110) mg/dL Microbiology - Last 24 Hours (Table) 09/23/22 23:15 Blood Culture - Preliminary Blood 09/23/22 23:00 Blood Culture - Preliminary Blood
[2022-09-27 16:34] LABS: Glucose,Whole Blood 121 mg/dL (70-110)
[2022-09-27 20:19] LABS: Glucose,Whole Blood 132 mg/dL (70-110)
[2022-09-27] MEDS: METOPROLOL TARTRATE 25 MG TAB PO SCH (20:37)
[2022-09-28 06:16] LABS: Glucose,Whole Blood 113 mg/dL (70-110)
[2022-09-28] MEDS: buPROPion XL 150 MG TAB.ER.24H PO SCH (08:47)
[2022-09-28] MEDS: METOPROLOL TARTRATE 25 MG TAB PO SCH ×2 (08:47→21:23)
[2022-09-28] MEDS: APIXABAN 5 MG TAB PO SCH ×2 (08:48→21:23)
[2022-09-28] MEDS: AMIODARONE 200 MG TAB PO SCH (08:48)
[2022-09-28] MEDS: CEFTOLOZANE/TAZOBACTAM 1.5 GM in SODIUM CHLORIDE 0.9% 100 ML IV SCH ×2 (08:54→17:42)
[2022-09-28 11:40] LABS: Glucose,Whole Blood 110 mg/dL (70-110)
[2022-09-28 12:51] VITALS: BMI 21.2
--- NOTE | 2022-09-28 13:10 | P.PN ---
Subjective Progress Note Date: 09/26/22 Principal diagnosis: Urinary tract infection Patient is a 71-year-old female with a past medical history significant for recurrent urinary tract infection diabetes mellitus hyperlipidemia and history of recurrent UTI presenting to the hospital for evaluation of weakness and unable to get out of bathroom, patient did have a positive UA with a history of ESBL patient was started on Zerbexa pending cultures. On today's evaluation that is 09/26/2022, the patient denies having any fever or any chills, the patient is breathing comfortably on room air, the patient denies chest pain shortness of breath or cough, the patient be complaining of some left lower abdominal pain no diarrhea Objective - Vital Signs Vital signs: Vital Signs Temp 97.3 F L 09/26/22 08:22 Pulse 75 09/26/22 08:22 Resp 16 09/26/22 08:22 BP 98/66 09/26/22 08:22 Pulse Ox 98 09/26/22 09:22 FiO2 Intake & Output 09/25/22 09/26/22 09/26/22 18:59 06:59 18:59 Intake Total 0 110 Output Total 350 550 200 Balance -350 -550 -90 Intake: Oral 0 110 Output: Urine 350 550 200 Other: Voiding Method External Catheter External Catheter External Catheter # Voids 1 # Bowel Movements 1 - Exam GENERAL DESCRIPTION: An elderly female up in the chair in no distress RESPIRATORY SYSTEM: Unlabored breathing , decreased breath sounds at bases HEART: S1 S2 regular rate and rhythm , ABDOMEN: Soft , no tenderness EXTREMITIES: No edema feet - Labs CBC & Chem 7: 09/26/22 07:01 09/26/22 07:01 Labs: Abnormal Lab Results - Last 24 Hours (Table) 09/25/22 09/25/22 09/26/22 Range/Units 11:21 16:21 07:01 RBC (3.80-5.40) m/uL Hgb (11.4-16.0) gm/dL Hct (34.0-46.0) % RDW (11.5-15.5) % Chloride 113 H (98-107) mmol/L Carbon Dioxide 16 L (22-30) mmol/L BUN 20 H (7-17) mg/dL Creatinine 1.32 H (0.52-1.04) mg/dL Glucose 100 H (74-99) mg/dL POC Glucose (mg/dL) 116 H 115 H (70-110) mg/dL Calcium 7.3 L (8.4-10.2) mg/dL 09/26/22 Range/Units 07:01 RBC 3.26 L (3.80-5.40) m/uL Hgb 9.8 L (11.4-16.0) gm/dL Hct 31.7 L (34.0-46.0) % RDW 21.6 H (11.5-15.5) % Chloride (98-107) mmol/L Carbon Dioxide (22-30) mmol/L BUN (7-17) mg/dL Creatinine (0.52-1.04) mg/dL Glucose (74-99) mg/dL POC Glucose (mg/dL) (70-110) mg/dL Calcium (8.4-10.2) mg/dL Microbiology - Last 24 Hours (Table) 09/23/22 23:15 Blood Culture - Preliminary Blood 09/23/22 23:00 Blood Culture - Preliminary Blood Assessment and Plan (1) UTI (urinary tract infection) Current Visit: Yes Status: Acute Code(s): N39.0 - URINARY TRACT INFECTION, SITE NOT SPECIFIED SNOMED Code(s): 85819753 Plan: 1patient presented to hospital with generalized weakness no energy urinary burning positive UA concerning for a symptomatic urinary tract infection with recent culture positive for ESBL Klebsiella, we will need to cover for the resistant gram-negative while waiting for the culture to finalize 2-patient abdominal ultrasound shows multiple nonobstructing renal stone, CT of abdominal pelvis has been ordered and results will be followed 3-patient to continue Zerbaxa while waiting for the cultures to finalize Time with Patient: Less than 30
--- NOTE | 2022-09-28 13:48 | P.PN ---
Subjective Progress Note Date: 09/28/22 patient 71-year-old lady with past medical significant for hypertension, hyperlipidemia, paroxysmal atrial fibrillation ablation presented to the ER because of generalized weakness. Patient has been complaining of back pain and neck pain for which she has been following up outpatient with PCP who ran some x-rays but was inconclusive. Patient was at home and was getting more and more weak, today she was unable to get up from the toilet. Patient denies any fever or chills. There is no complaint of lightheadedness or dizziness. Denies any nausea or vomiting. Denies any chest pain or shortness of breath. No complaint of orthopnea or PND. Because of this generalized weakness, patient came to the ER Initial lab work done in the ER showed WBC 5.5, hemoglobin 10.1, platelet count 218, sodium 133, potassium 4.7, BUN 30, creatinine 1.85, UA showed leukocyte Estrace positive, urine WBC more than 182 CT cervical spine negative for any acute fractures Patient admitted to medicine service 09/25. Patient seen and examined. States she feels much better. Denies any lightheadedness or dizziness 09/26. Patient seen and examined. Patient complaining of left lower quadrant ab dominal pain. 09/27. Patient seen and examined. CT abdominal pelvis done because of patient's current pain of lower quadrant abdominal pain showed clustered calculi measuring up to 6 mm the distal left ureter contributing to mild obstructive uropathy. Patient blood pressure was a little over night, reduced dose of Lopressor to 25 mg twice a day 09/28. Patient seen and examined. States she feels much better . REVIEW OF SYSTEMS: CONSTITUTIONAL: No fever, no malaise,. CARDIOVASCULAR: No chest pain, no palpitations, no syncope. PULMONARY: No shortness of breath, no cough, GASTROINTESTINAL: No diarrhea, no nausea, no vomiting NEUROLOGICAL: No headaches, no weakness, PHYSICAL EXAMINATION: GENERAL: The patient is alert and oriented x3, not in any acute distress. Well developed, well nourished. HEENT: Pupils are round and equally reacting to light. EOMI. No scleral icterus. No conjunctival pallor. Normocephalic, atraumatic. No pharyngeal erythema. No thyromegaly. CARDIOVASCULAR: S1 and S2 present. No murmurs, rubs, or gallops. PULMONARY: Chest is clear to auscultation, no wheezing or crackles. ABDOMEN: Soft, nontender, nondistended, normoactive bowel sounds. No palpable or ganomegaly. MUSCULOSKELETAL: No joint swelling or deformity. EXTREMITIES: No cyanosis, clubbing, or pedal edema. NEUROLOGICAL: Gross neurological examination did not reveal any focal deficits. SKIN: No rashes. Assessment and plan Generalized weakness UTI Acute kidney injury Obstructive uropathy of distal left ureter Paroxysmal atrial fibrillation Hypertension Monitor vital signs Monitor CBC Monitor CMP Follow-up on blood cultures Follow-up urine cultures Continue IV Zerbaxa Ordered repeat UA CT abdomen and pelvis without contrast showed clustered calculi measuring up to 6 mm the distal left ureter contributing to mild obstructive uropathy urology consulted Cardiology evaluated the patient recommended keeping patient on current cardiac medications ID following Labs and medication were reviewed.. Continue same treatment. Continue with symptomatic treatment. Resume home medication. Monitor labs and vitals. DVT and GI prophylaxis. Further recommendations as per clinical course of the patient Objective - Vital Signs Vital signs: Vital Signs Temp 98.4 F 09/28/22 08:00 Pulse 83 09/28/22 08:00 Resp 18 09/28/22 08:00 BP 124/60 09/28/22 08:00 Pulse Ox 90 L 09/28/22 12:39 FiO2 Intake & Output 09/27/22 09/28/22 09/28/22 18:59 06:59 18:59 Output Total 200 Balance -200 Weight 61.5 kg Output: Urine 200 Other: Voiding Method External Catheter External Catheter - Labs CBC & Chem 7: 09/26/22 07:01 09/26/22 07:01 Labs: Abnormal Lab Results - Last 24 Hours (Table) 09/27/22 09/27/22 09/28/22 Range/Units 16:32 20:11 06:13 POC Glucose (mg/dL) 121 H 132 H 113 H (70-110) mg/dL
--- NOTE | 2022-09-28 14:52 | P.GSCN ---
History of Present Illness Consult date: 09/28/22 Reason for Consult: Left ureteral stone History of present illness: This is a 71-year-old female with history of recurrent kidney stones. Patient admitted to the hospital UTI. She does have history of recurrent ESBL UTIs and recurrent kidney stones. She previously followed up with Dr Aguirre. She underwent a CT abdomen and pelvis that showed multiple left distal ureteral stone with minimal hydronephrosis. She also had evidence of bilateral renal stones. On admission did have left lower quadrant and mild left flank pain which has resolved now. At this point she denies any dysuria or gross hematuria. No fevers or chills. On admission her creatinine was 1.8 which improved 1.3 her baseline is around 1-1.1. She did require ureteroscopy with holmium laser in the past with Dr. Aguirre to address her stones. 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 COLONOSCOPY. LAP BAND THEN HAD BARIATRIC SURGERY;. bladder surgery may have been for a benign cyst but is not sure. 16 LBS ABD. TISSUE REMOVED Past Anesthesia/Blood Transfusion Reactions: No Reported Reaction Past Psychological History: Anxiety, Depression Smoking Status: Never smoker Past Alcohol Use History: None Reported Past Drug Use History: None Reported - Past Family History Mother Family Medical History: Diabetes Mellitus Additional Family Medical History / Comment(s): At [facility] with UTI. Father Family Medical History: CVA/TIA, Diabetes Mellitus Sister(s) Family Medical History: Deep Vein Thrombosis (DVT) Medications and Allergies Home Medications Medication Instructions Recorded Confirmed Type Oxybutynin Chloride 5 mg PO BID 05/15/18 09/24/22 History Metoprolol Tartrate [Lopressor] 50 mg PO BID 02/28/20 09/24/22 History Albuterol Sulfate [Albuterol 2 puff PO RT-QID PRN 06/29/22 09/24/22 History Sulfate Hfa] Alendronate Sodium [Fosamax] 70 mg PO WE 06/29/22 09/24/22 History Benzonatate [Tessalon Perles] 100 mg PO TID PRN 06/29/22 09/24/22 History Apixaban [Eliquis] 5 mg PO BID #60 tab 07/05/22 09/24/22 Rx Acetaminophen Tab [Tylenol] 325 mg PO Q6HR PRN tab 07/07/22 09/24/22 Rx Calcium Carbonate [Tums] 1,000 mg PO BID tab 07/07/22 09/24/22 Rx Cholecalciferol [Vitamin D3 (125 125 mcg PO DAILY tab 07/07/22 09/24/22 Rx Mcg = 5000 Iu)] Famotidine [Pepcid] 20 mg PO BID #60 tablet 07/07/22 09/24/22 Rx Ipratropium-Albuterol Nebulize 3 ml INHALATION RT-QID PRN each 07/07/22 09/24/22 Rx [Duoneb 0.5 mg-3 mg/3 ml Soln] Loperamide [Imodium] 2 mg PO QID PRN cap 07/07/22 09/24/22 Rx Amiodarone [Cordarone] 200 mg PO BID 08/14/22 09/24/22 History Furosemide [Lasix] 20 mg PO DAILY 08/14/22 09/24/22 History buPROPion XL [Wellbutrin XL] 150 mg PO DAILY 09/24/22 09/24/22 History Allergies Allergy/AdvReac Type Severity Reaction Status Date / Time meperidine [From Demerol] AdvReac Nausea & Verified 09/24/22 07:27 Vomiting Penicillins AdvReac "FALLS Verified 09/24/22 07:27 ALOT"/Weakness Sulfa (Sulfonamide AdvReac Nausea & Verified 09/24/22 07:27 Antibiotics) Vomiting Surgical - Exam Vital Signs Temp Pulse Resp BP Pulse Ox 97.1 F L 67 18 86/46 98 09/23/22 19:36 09/23/22 19:36 09/23/22 19:36 09/23/22 19:36 09/23/22 19:36 Results - Labs 09/26/22 07:01 09/26/22 07:01 Abnormal Lab Results - Last 24 Hours (Table) 09/27/22 09/27/22 09/28/22 Range/Units 16:32 20:11 06:13 POC Glucose (mg/dL) 121 H 132 H 113 H (70-110) mg/dL Assessment and Plan Assessment: 71-year-old female with history of left-sided distal stone, with minimal hydronephrosis. She is a asymptomatic from her stone. Discussed with her given the stable kidney function, minimal hydronephrosis and lack of symptoms no acute intervention. Discussed with her this point I recommend continuing treating the UTI. -Okay for discharge from urology standpoint -Follow-up as an outpatient in 1-2 weeks. At that time of his resolution of UTI then we'll arrange for outpatient left-sided ureteroscopy and holmium laser
--- NOTE | 2022-09-28 15:22 | P.PN ---
Subjective Progress Note Date: 09/28/22 Principal diagnosis: Urinary tract infection Patient is a 71-year-old female with a past medical history significant for recurrent urinary tract infection diabetes mellitus hyperlipidemia and history of recurrent UTI presenting to the hospital for evaluation of weakness and unable to get out of bathroom, patient did have a positive UA with a history of ESBL patient was started on Zerbexa pending cultures. On today's evaluation that is 09/28/2022, the patient denies having any fever or any chills, the patient is breathing comfortably on room air, the patient denies chest pain shortness of breath or cough, the patient denies any abdominal pain and no diarrhea Objective - Vital Signs Vital signs: Vital Signs Temp 98.4 F 09/28/22 08:00 Pulse 83 09/28/22 08:00 Resp 18 09/28/22 08:00 BP 124/60 09/28/22 08:00 Pulse Ox 90 L 09/28/22 12:39 FiO2 Intake & Output 09/27/22 09/28/22 09/28/22 18:59 06:59 18:59 Output Total 200 Balance -200 Weight 61.5 kg Output: Urine 200 Other: Voiding Method External Catheter External Catheter - Exam GENERAL DESCRIPTION: An elderly female up in the chair in no distress RESPIRATORY SYSTEM: Unlabored breathing , decreased breath sounds at bases HEART: S1 S2 regular rate and rhythm , ABDOMEN: Soft , no tenderness EXTREMITIES: No edema feet - Labs CBC & Chem 7: 09/26/22 07:01 09/26/22 07:01 Labs: Abnormal Lab Results - Last 24 Hours (Table) 09/27/22 09/27/22 09/28/22 Range/Units 16:32 20:11 06:13 POC Glucose (mg/dL) 121 H 132 H 113 H (70-110) mg/dL Assessment and Plan (1) UTI (urinary tract infection) Current Visit: Yes Status: Acute Code(s): N39.0 - URINARY TRACT INFECTION, SITE NOT SPECIFIED SNOMED Code(s): 57555985 Plan: 1patient presented to hospital with generalized weakness no energy urinary burning positive UA concerning for a symptomatic urinary tract infection with recent culture positive for ESBL Klebsiella, we will need to cover for the resistant gram-negative while waiting for the culture to finalize 2-patient abdominal ultrasound shows multiple nonobstructing renal stone, CT of abdominal pelvis has been ordered and results will be followed 3-patient did have some clinical improvement however urine cultures are still pending we will repeat a UA, patient to continue Zerbaxa with a discharge antibiotics on the basis of repeat UA and initial cultures discussed with the a dmitting team Time with Patient: Less than 30
[2022-09-28] MEDS: ACETAMINOPHEN TAB 325 MG TAB PO PRN ×2 (15:43→21:23)
--- NOTE | 2022-09-28 15:54 | P.PN ---
Subjective Progress Note Date: 09/28/22 History of present illness: This is a 71-year-old female with a history of mild nonischemic cardiomyopathy, hypertension, hyperlipidemia, paroxysmal atrial fibrillation who presented with urinary tract infection, paroxysmal atrial fibrillation and hypotension. She is maintaining sinus mechanism. She feels fairly well overall. She denies any chest discomfort, dizziness or palpitations or it she denies any nausea. Physical examination: LUNGS: Clear to auscultation HEART: Regular rate and rhythm, S1, S2. No S3. Systolic ejection murmur ABDOMEN: Soft, nontender, no organomegaly EXTREMETIES: No edema Assessment: 1. Paroxysmal atrial fibrillation, maintaining sinus mechanism 2. UTI 3. Acute renal injury improving 4. Mild cardiomyopathy Plan: continue current cardiac medications Patient is cleared from cardiology for discharge home. We will decrease amiodarone 200 mg 2 frequency of once daily. Cardiology will sign off this case and follow on an as-needed basis. Please reconsult for any new concerns. Patient may follow-up in the office in one to 2 weeks. Nurse practitioner note has been reviewed, I agree with documented findings and plan of care. Patient was seen and examined. Objective - Vital Signs Vital signs: Vital Signs Temp 98.4 F 09/28/22 08:00 Pulse 83 09/28/22 08:00 Resp 18 09/28/22 08:00 BP 124/60 09/28/22 08:00 Pulse Ox 99 09/28/22 08:00 FiO2 Intake & Output 09/27/22 09/28/22 09/28/22 18:59 06:59 18:59 Output Total 200 Balance -200 Output: Urine 200 Other: Voiding Method External Catheter External Catheter - Labs CBC & Chem 7: 09/26/22 07:01 09/26/22 07:01 Labs: Abnormal Lab Results - Last 24 Hours (Table) 09/27/22 09/27/22 09/28/22 Range/Units 16:32 20:11 06:13 POC Glucose (mg/dL) 121 H 132 H 113 H (70-110) mg/dL
[2022-09-28 16:40] LABS: Appearance,Urine Cloudy (Clear); Bacteria,Urine Occasional /hpf; Bilirubin,Urine Negative (Negative); Blood,Urine Large (Negative); Budding Yeast,Urine Rare /hpf; Color,Urine Yellow; Glucose,Urine (UA) Negative (Negative); Ketones,Urine Negative (Negative); Leukocyte Esterase,Urine Large (Negative); Nitrite,Urine Negative (Negative); Protein,Urine 1+ (Negative); RBC,Urine >182 /hpf (0-5); Specific Gravity,Urine 1.016 (1.001-1.035); Squamous Epithelial Cell,Urine 1 /hpf (0-4); Urobilinogen,Urine <2.0 mg/dL (<2.0); WBC,Urine >182 /hpf (0-5)
[2022-09-28 17:16] LABS: Glucose,Whole Blood 112 mg/dL (70-110)
[2022-09-28 20:14] LABS: Glucose,Whole Blood 129 mg/dL (70-110)
[2022-09-29] MEDS: CEFTOLOZANE/TAZOBACTAM 1.5 GM in SODIUM CHLORIDE 0.9% 100 ML IV SCH ×2 (00:33→09:16)
[2022-09-29 01:05] VITALS: PULSE 65
[2022-09-29] MEDS: ACETAMINOPHEN TAB 325 MG TAB PO PRN (05:13)
[2022-09-29 07:12] LABS: Glucose,Whole Blood 113 mg/dL (70-110)
[2022-09-29 08:21] VITALS: RESP 16
[2022-09-29] MEDS: HYDROcodone/APAP 5-325MG 1 EACH TAB PO PRN (08:37)
[2022-09-29] MEDS: APIXABAN 5 MG TAB PO SCH (08:38)
[2022-09-29] MEDS: METOPROLOL TARTRATE 25 MG TAB PO SCH (08:38)
[2022-09-29] MEDS: AMIODARONE 200 MG TAB PO SCH (08:38)
[2022-09-29] MEDS: buPROPion XL 150 MG TAB.ER.24H PO SCH (08:38)
[2022-09-29 12:16] LABS: Glucose,Whole Blood 105 mg/dL (70-110)
--- NOTE | 2022-09-29 12:41 | P.DS ---
Providers Date of admission: 09/23/22 23:11 Expected date of discharge: 09/29/22 Attending physician: Rocio Strauss Consults: 09/24/22 09:20 Consult Physician Urgent Consulting Provider: Mitch Francis Consult Reason/Comments: Complicated UTI Do you want consulting provider notified?: Yes 09/24/22 09:26 Consult Physician Urgent Consulting Provider: Jayme Sheets Consult Reason/Comments: Paroxysmal A. fib, hypotension Do you want consulting provider notified?: Yes 09/26/22 21:20 Consult Physician Routine Consulting Provider: Kenneth Estes Consult Reason/Comments: obstructive uropathy Do you want consulting provider notified?: Yes, Notify in am Primary care physician: Anthony Srinivasan Hospital Course: Discharge diagnoses; Generalized weakness UTI Acute kidney injury Obstructive uropathy of distal left ureter Paroxysmal atrial fibrillation Hypertension Hospital course; patient 71-year-old lady with past medical significant for hypertension, hyperlipidemia, paroxysmal atrial fibrillation ablation presented to the ER because of generalized weakness. Patient has been complaining of back pain and neck pain for which she has been following up outpatient with PCP who ran some x-rays but was inconclusive. Patient was at home and was getting more and more weak, today she was unable to get up from the toilet. Patient denies any fever or chills. There is no complaint of lightheadedness or dizziness. Denies any nausea or vomiting. Denies any chest pain or shortness of breath. No complaint of orthopnea or PND. Because of this generalized weakness, patient came to the ER Initial lab work done in the ER showed WBC 5.5, hemoglobin 10.1, platelet count 218, sodium 133, potassium 4.7, BUN 30, creatinine 1.85, UA showed leukocyte Estrace positive, urine WBC more than 182 CT cervical spine negative for any acute fractures Patient admitted to medicine service 09/25. Patient seen and examined. States she feels much better. Denies any lightheadedness or dizziness 09/26. Patient seen and examined. Patient complaining of left lower quadrant abdominal pain. 09/27. Patient seen and examined. CT abdominal pelvis done because of patient's current pain of lower quadrant abdominal pain showed clustered calculi measuring up to 6 mm the distal left ureter contributing to mild obstructive uropathy. Patient blood pressure was a little over night, reduced dose of Lopressor to 25 mg twice a day 09/28. Patient seen and examined. States she feels much better . 09/29. Patient seen and examined. ID recommended discharging patient on Diflucan for 7 days. PHYSICAL EXAMINATION: GENERAL: The patient is alert and oriented x3, not in any acute distress. Well developed, well nourished. HEENT: Pupils are round and equally reacting to light. EOMI. No scleral icterus. No conjunctival pallor. Normocephalic, atraumatic. No pharyngeal erythema. No thyromegaly. CARDIOVASCULAR: S1 and S2 present. No murmurs, rubs, or gallops. PULMONARY: Chest is clear to auscultation, no wheezing or crackles. ABDOMEN: Soft, nontender, nondistended, normoactive bowel sounds. No palpable organomegaly. MUSCULOSKELETAL: No joint swelling or deformity. EXTREMITIES: No cyanosis, clubbing, or pedal edema. NEUROLOGICAL: Gross neurological examination did not reveal any focal deficits. SKIN: No rashes. Dictation was produced using [employer] dictation software. please excuse any grammatical, word or spelling errors. Patient Condition at Discharge: Stable Plan - Discharge Summary Discharge Rx Participant: No New Discharge Prescriptions: New Amiodarone [Cordarone] 200 mg PO DAILY #30 tab Fluconazole [Diflucan] 100 mg PO DAILY 7 Days #7 tab Metoprolol Tartrate [Lopressor] 25 mg PO BID #60 tab Continue Oxybutynin Chloride 5 mg PO BID Albuterol Sulfate [Albuterol Sulfate Hfa] 2 puff PO RT-QID PRN PRN Reason: Shortness Of Breath Apixaban [Eliquis] 5 mg PO BID #60 tab Ipratropium-Albuterol Nebulize [Duoneb 0.5 mg-3 mg/3 ml Soln] 3 ml INHALATION RT-QID PRN each PRN Reason: Shortness Of Breath Or Wheezing Famotidine [Pepcid] 20 mg PO BID #60 tablet Calcium Carbonate [Tums] 1,000 mg PO BID tab Furosemide [Lasix] 20 mg PO DAILY Alendronate Sodium [Fosamax] 70 mg PO WE Benzonatate [Tessalon Perles] 100 mg PO TID PRN PRN Reason: Cough Loperamide [Imodium] 2 mg PO QID PRN cap PRN Reason: Diarrhea Acetaminophen Tab [Tylenol] 325 mg PO Q6HR PRN tab PRN Reason: Fever And/ Or Pain Cholecalciferol [Vitamin D3 (125 Mcg = 5000 Iu)] 125 mcg PO DAILY tab buPROPion XL [Wellbutrin XL] 150 mg PO DAILY Discontinued Metoprolol Tartrate [Lopressor] 50 mg PO BID Amiodarone [Cordarone] 200 mg PO BID Discharge Medication List Oxybutynin Chloride 5 mg PO BID 05/15/18 [History] Albuterol Sulfate [Albuterol Sulfate Hfa] 2 puff PO RT-QID PRN 06/29/22 [History] Alendronate Sodium [Fosamax] 70 mg PO WE 06/29/22 [History] Benzonatate [Tessalon Perles] 100 mg PO TID PRN 06/29/22 [History] Apixaban [Eliquis] 5 mg PO BID #60 tab 07/05/22 [Rx] Acetaminophen Tab [Tylenol] 325 mg PO Q6HR PRN tab 07/07/22 [Rx] Calcium Carbonate [Tums] 1,000 mg PO BID tab 07/07/22 [Rx] Cholecalciferol [Vitamin D3 (125 Mcg = 5000 Iu)] 125 mcg PO DAILY tab 07/07/22 [Rx] Famotidine [Pepcid] 20 mg PO BID #60 tablet 07/07/22 [Rx] Ipratropium-Albuterol Nebulize [Duoneb 0.5 mg-3 mg/3 ml Soln] 3 ml INHALATION RT-QID PRN each 07/07/22 [Rx] Loperamide [Imodium] 2 mg PO QID PRN cap 07/07/22 [Rx] Furosemide [Lasix] 20 mg PO DAILY 08/14/22 [History] buPROPion XL [Wellbutrin XL] 150 mg PO DAILY 09/24/22 [History] Amiodarone [Cordarone] 200 mg PO DAILY #30 tab 09/29/22 [Rx] Fluconazole [Diflucan] 100 mg PO DAILY 7 Days #7 tab 09/29/22 [Rx] Metoprolol Tartrate [Lopressor] 25 mg PO BID #60 tab 09/29/22 [Rx] Follow up Appointment(s)/Referral(s): [facility], [NON-STAFF] - 1-2 Days (will call to set up appointment, any questions please call agency) Brad Bermudez MD [STAFF PHYSICIAN] - 1 Week Anthony Srinivasan DO [Primary Care Provider] - 1-2 days Mitch Francis MD [STAFF PHYSICIAN] - 1 Week Discharge Disposition: HOME WITH HOME HEALTH SERVICES
[2022-09-29 13:11] VITALS: BP 110/73; TEMP 98.2
== END 2022-09-29 15:06 | disposition home health service (06) | DRG 683 ==
LOC: EC 19:28 → 3SCARD 23:11 → 5NMEDONC 09-28 14:00
PROVIDERS: ADMIT Hospitalist; ATTEND Hospitalist
PROC: XW03396 Introduction of Ceftolozane/Tazobactam Anti-infective into Peripheral Vein, Percutaneous Approach, New Technology Group 6 (ICD-10-PCS; principal; 2022-09-23)
DX: N17.9 Acute kidney failure, unspecified (principal); I42.8 Other cardiomyopathies; N39.0 Urinary tract infection, site not specified; N20.2 Calculus of kidney with calculus of ureter; M54.2 Cervicalgia; I95.9 Hypotension, unspecified; F41.9 Anxiety disorder, unspecified; F32.A Depression, unspecified; E11.40 Type 2 diabetes mellitus with diabetic neuropathy, unspecified; D72.819 Decreased white blood cell count, unspecified; N13.1 Hydronephrosis with ureteral stricture, not elsewhere classified; B96.1 Klebsiella pneumoniae [K. pneumoniae] as the cause of diseases classified elsewhere; I10 Essential (primary) hypertension; I48.0 Paroxysmal atrial fibrillation; E78.5 Hyperlipidemia, unspecified; Z88.0 Allergy status to penicillin; Z88.1 Allergy status to other antibiotic agents; Z88.5 Allergy status to narcotic agent; Z87.440 Personal history of urinary (tract) infections; Z98.84 Bariatric surgery status; Z79.899 Other long term (current) drug therapy; Z79.83 Long term (current) use of bisphosphonates; Z79.01 Long term (current) use of anticoagulants
CPT/HCPCS: 36415; 51701; 71045; 72125; 74176; 76700; 80048; 80053; 81001; 83605; 83880; 84484; 85025; 85610; 85730; 87040; 87077; 87086; 87186; 93005; 94760; 96361; 96374; 99285

== ENCOUNTER 2022-10-03 10:10 | Inpatient (IN) | payer MEDICARE ==
--- NOTE | 2022-10-03 10:20 | ED ---
General Adult HPI - General Stated complaint: sob Time Seen by Provider: 10/03/22 10:13 Source: EMS Mode of arrival: EMS Limitations: altered mental status, physical limitation - History of Present Illness Initial comments: Patient is a 71-year-old female presenting to the emergency department by EMS for difficulty breathing. Patient is a poor historian and provides little his tory. Majority of history is provided by EMS. Patient has limited ability to answer 1 word sentences. Patient does complain of shortness of breath. Patient does have history of COPD. Patient denies feeling confused. - Related Data Home Medications Medication Instructions Recorded Confirmed Oxybutynin Chloride 5 mg PO BID 05/15/18 09/24/22 Albuterol Sulfate [Albuterol 2 puff PO RT-QID PRN 06/29/22 09/24/22 Sulfate Hfa] Alendronate Sodium [Fosamax] 70 mg PO WE 06/29/22 09/24/22 Benzonatate [Tessalon Perles] 100 mg PO TID PRN 06/29/22 09/24/22 Furosemide [Lasix] 20 mg PO DAILY 08/14/22 09/24/22 buPROPion XL [Wellbutrin XL] 150 mg PO DAILY 09/24/22 09/24/22 Previous Rx's Medication Instructions Recorded Apixaban [Eliquis] 5 mg PO BID #60 tab 07/05/22 Acetaminophen Tab [Tylenol] 325 mg PO Q6HR PRN tab 07/07/22 Calcium Carbonate [Tums] 1,000 mg PO BID tab 07/07/22 Cholecalciferol [Vitamin D3 (125 125 mcg PO DAILY tab 07/07/22 Mcg = 5000 Iu)] Famotidine [Pepcid] 20 mg PO BID #60 tablet 07/07/22 Ipratropium-Albuterol Nebulize 3 ml INHALATION RT-QID PRN each 07/07/22 [Duoneb 0.5 mg-3 mg/3 ml Soln] Loperamide [Imodium] 2 mg PO QID PRN cap 07/07/22 Amiodarone [Cordarone] 200 mg PO DAILY #30 tab 09/29/22 Fluconazole [Diflucan] 100 mg PO DAILY 7 Days #7 tab 09/29/22 Metoprolol Tartrate [Lopressor] 25 mg PO BID #60 tab 09/29/22 Allergies Allergy/AdvReac Type Severity Reaction Status Date / Time meperidine [From Demerol] AdvReac Nausea & Verified 10/03/22 10:24 Vomiting Penicillins AdvReac "FALLS Verified 10/03/22 10:24 ALOT"/Weakness Sulfa (Sulfonamide AdvReac Nausea & Verified 10/03/22 10:24 Antibiotics) Vomiting Review of Systems ROS Statement: Those systems with pertinent positive or pertinent negative responses have been documented in the HPI. ROS Other: All systems not noted in ROS Statement are negative. 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 COLONOSCOPY. LAP BAND THEN HAD BARIATRIC SURGERY;. bladder surgery may have been for a benign cyst but is not sure. 16 LBS ABD. TISSUE REMOVED Past Anesthesia/Blood Transfusion Reactions: No Reported Reaction Past Psychological History: Anxiety, Depression Smoking Status: Never smoker Past Alcohol Use History: None Reported Past Drug Use History: None Reported - Past Family History Mother Family Medical History: Diabetes Mellitus Additional Family Medical History / Comment(s): At [facility] with UTI. Father Family Medical History: CVA/TIA, Diabetes Mellitus Sister(s) Family Medical History: Deep Vein Thrombosis (DVT) General Exam Limitations: altered mental status, physical limitation General appearance: alert Head exam: Present: atraumatic Eye exam: Present: normal appearance, PERRL ENT exam: Present: mucous membranes dry Neck exam: Present: normal inspection Respiratory exam: Present: respiratory distress, decreased breath sounds Cardiovascular Exam: Present: regular rate, normal rhythm GI/Abdominal exam: Present: soft. Absent: tenderness Extremities exam: Present: pedal edema ( + 1 bilateral) Neurological exam: Present: alert, oriented X3 Psychiatric exam: Present: flat affect Skin exam: Present: normal color Course Vital Signs 10/03/22 10/03/22 10/03/22 10:13 10:20 10:27 Temperature 95.5 F L Pulse Rate 81 80 Respiratory 40 H 39 H Rate Blood Pressure 95/56 98/52 O2 Sat by Pulse 88 L 98 Oximetry Fraction of 60 Inspired Oxygen (FIO2) 10/03/22 10/03/22 10/03/22 10:29 10:33 11:17 Temperature Pulse Rate 77 Respiratory 40 H 22 Rate Blood Pressure 93/44 O2 Sat by Pulse 96 Oximetry Fraction of 80 Inspired Oxygen (FIO2) EKG Findings - EKG Results: EKG: interpreted by ERMD (Left axis. Inferior Q waves. Artifact present.), sinus rhythm, normal ST/T Procedures - ABG Interpretation Ph: 7.07 PCO2: 41.6 PO2: 74 Bicarbonate: 12 Interpretation: metabolic acidosis Additional Comments: On nonrebreather Medical Decision Making - Medical Decision Making Was pt. sent in by a medical professional or institution (, PA, BURGLAR ALARM INSPECTOR, urgent care, hospital, or jail...) When possible be specific @ -No Did you speak to anyone other than the patient for history (EMS, parent, family, police, friend...)? What history was obtained from this source @ -EMS provides majority of history as patient is drowsy and a poor historian Did you review nursing and triage notes (agree or disagree)? Why? @ -I reviewed and agree with nursing and triage notes Were old charts reviewed (outside hosp., previous admission, EMS record, old EKG, old radiological studies, urgent care reports/EKG's, jail records)? Report findings @ -No old charts were reviewed Differential Diagnosis (chest pain, altered mental status, abdominal pain women, abdominal pain men, vaginal bleeding, weakness, fever, dyspnea, syncope, headache, dizziness, GI bleed, back pain, seizure, CVA, palpatations, mental health, musculoskeletal)? @ -Differential Dyspnea: Coronary syndrome, arrhythmia, tamponade, asthma, COPD, pulmonary embolism, pn eumonia, pneumothorax, pulmonary effusion, anaphylaxis, diabetic ketoacidosis, flailed chest, pulmonary contusion, diaphragmatic rupture, anemia, neuromuscular, this is not meant to be an all-inclusive list. EKG interpreted by me (3pts min.). @ -As above X-rays interpreted by me (1pt min.). @ -Chest x-ray shows diffuse haziness and effusions CT interpreted by me (1pt min.). @ -None done U/S interpreted by me (1pt. min.). @ -None done What testing was considered but not performed or refused? (CT, X-rays, U/S, labs)? Why? @ -None What meds were considered but not given or refused? Why? @ -None Did you discuss the management of the patient with other professionals (professionals i.e. Dr., PA, BURGLAR ALARM INSPECTOR, lab, RT, psych nurse, nursing home social worker, cryptographic clerk, teacher, chief commercial officer, continuous pillowcase cutter)? Give summary @ -Case was discussed with Dr. Milian with [facility], who will admit cover Dr. Srinivasan Case also discussed with Dr. Grove who will consult for critical care. He does recommend bicarb drip and Lasix drip. Was smoking cessation discussed for >3mins.? @ -No Was critical care preformed (if so, how long)? @ -No Were there social determinants of health that impacted care today? How? (Homelessness, low income, unemployed, alcoholism, drug addiction, transportation, low edu. Level, literacy, decrease access to med. care, nursing home, rehab)? @ -No Was there de-escalation of care discussed even if they declined (Discuss DNR or withdrawal of care, Hospice)? DNR status @ -No What co-morbidities impacted this encounter? (DM, HTN, Smoking, COPD, CAD, Cancer, CVA, ARF, Chemo, Hep., AIDS, mental health diagnosis, sleep apnea, morbid obesity)? @ -None Was patient admitted / discharged? Hospital course, mention meds given and route, prescriptions, significant lab abnormalities, going to OR and other pertinent info. @ -Patient reevaluated and improved with BiPAP. Patient is updated on results and plan. Patient states onset of symptoms was yesterday. Patient has new acute kidney injury and metabolic acidosis. Patient is on chest x-ray. Cannot rule out pneumonia. Cardiology and nephrology will be placed on consult as well as pulmonary/critical care. Undiagnosed new problem with uncertain prognosis? @ -No Drug Therapy requiring intensive monitoring for toxicity (Heparin, Nitro, Insulin, Cardizem)? @ -Patient will be placed on bicarbonates drips Were any procedures done? @ -No Diagnosis/symptom? @ -Respiratory failure,lisa, metabolic acidosis Acute, or Chronic, or Acute on Chronic? @ -Acute, acute, acute Uncomplicated (without systemic symptoms) or Complicated (systemic symptoms)? @ -CHF complicated with respiratory failure, metabolic acidosis and lisa, Side effects of treatment? @ -No Exacerbation, Progression, or Severe Exacerbation? @ -No Poses a threat to life or bodily function? How? (Chest pain, USA, SC, pneumonia, PE, COPD, DKA, ARF, appy, cholecystitis, CVA, Diverticulitis, Homicidal, Suicidal, threat to staff... and all critical care pts) @ -No - Lab Data Result diagrams: 10/03/22 10:25 10/03/22 10:25 Lab Results 10/03/22 10/03/22 10/03/22 Range/Units 10:20 10:20 10:25 WBC 22.8 H (3.8-10.6) k/uL RBC 3.53 L (3.80-5.40) m/uL Hgb 10.0 L (11.4-16.0) gm/dL Hct 35.2 (34.0-46.0) % MCV 99.9 (80.0-100.0) fL MCH 28.3 (25.0-35.0) pg MCHC 28.3 L (31.0-37.0) g/dL RDW 22.8 H (11.5-15.5) % Plt Count 201 (150-450) k/uL MPV 9.5 Neutrophils % 90 % Lymphocytes % 4 % Monocytes % 4 % Eosinophils % 1 % Basophils % 0 % Neutrophils # 20.6 H (1.3-7.7) k/uL Lymphocytes # 0.9 L (1.0-4.8) k/uL Monocytes # 0.8 (0-1.0) k/uL Eosinophils # 0.1 (0-0.7) k/uL Basophils # 0.1 (0-0.2) k/uL Hypochromasia Marked Poikilocytosis Slight Anisocytosis Moderate Macrocytosis Marked A PT (9.0-12.0) sec INR (<1.2) APTT (22.0-30.0) sec D-Dimer (<0.60) mg/L FEU Sample Site rrad ABG pH 7.07 L* (7.35-7.45) ABG pCO2 42 (35-45) mmHg ABG pO2 74 L (83-108) mmHg ABG HCO3 12 L (21-25) mmol/L ABG Total CO2 13 L (19-24) mmol/L ABG O2 Saturation 91.9 L (94-97) % ABG Base Excess -18.0 mmol/L Saulo Test Yes FiO2 100 % Sodium (137-145) mmol/L Potassium (3.5-5.1) mmol/L Chloride (98-107) mmol/L Carbon Dioxide (22-30) mmol/L Anion Gap mmol/L BUN (7-17) mg/dL Creatinine (0.52-1.04) mg/dL Est GFR (CKD-EPI)AfAm (>60 ml/min/1.73 sqM) Est GFR (CKD-EPI)NonAf (>60 ml/min/1.73 sqM) Glucose (74-99) mg/dL POC Glucose (mg/dL) 148 H (70-110) mg/dL POC Glu Addiction Treatment Counselor ID Dixon Cha Plasma Lactic Acid Christ (0.7-2.0) mmol/L Calcium (8.4-10.2) mg/dL Magnesium (1.6-2.3) mg/dL Total Bilirubin (0.2-1.3) mg/dL AST (14-36) U/L ALT (4-34) U/L Alkaline Phosphatase (38-126) U/L Troponin I (0.000-0.034) ng/mL NT-Pro-B Natriuret Pep pg/mL Total Protein (6.3-8.2) g/dL Albumin (3.5-5.0) g/dL Coronavirus (PCR) (Not Detectd) 10/03/22 10/03/22 10/03/22 Range/Units 10:25 10:25 10:25 WBC (3.8-10.6) k/uL RBC (3.80-5.40) m/uL Hgb (11.4-16.0) gm/dL Hct (34.0-46.0) % MCV (80.0-100.0) fL MCH (25.0-35.0) pg MCHC (31.0-37.0) g/dL RDW (11.5-15.5) % Plt Count (150-450) k/uL MPV Neutrophils % % Lymphocytes % % Monocytes % % Eosinophils % % Basophils % % Neutrophils # (1.3-7.7) k/uL Lymphocytes # (1.0-4.8) k/uL Monocytes # (0-1.0) k/uL Eosinophils # (0-0.7) k/uL Basophils # (0-0.2) k/uL Hypochromasia Poikilocytosis Anisocytosis Macrocytosis PT 15.5 H (9.0-12.0) sec INR 1.6 H (<1.2) APTT 26.3 (22.0-30.0) sec D-Dimer 0.67 H (<0.60) mg/L FEU Sample Site ABG pH (7.35-7.45) ABG pCO2 (35-45) mmHg ABG pO2 (83-108) mmHg ABG HCO3 (21-25) mmol/L ABG Total CO2 (19-24) mmol/L ABG O2 Saturation (94-97) % ABG Base Excess mmol/L Saulo Test FiO2 % Sodium 140 (137-145) mmol/L Potassium 5.3 H (3.5-5.1) mmol/L Chloride 113 H (98-107) mmol/L Carbon Dioxide 12 L (22-30) mmol/L Anion Gap 15 mmol/L BUN 41 H (7-17) mg/dL Creatinine 4.80 H (0.52-1.04) mg/dL Est GFR (CKD-EPI)AfAm 10 (>60 ml/min/1.73 sqM) Est GFR (CKD-EPI)NonAf 9 (>60 ml/min/1.73 sqM) Glucose 139 H (74-99) mg/dL POC Glucose (mg/dL) (70-110) mg/dL POC Glu Addiction Treatment Counselor ID Plasma Lactic Acid Christ 2.0 (0.7-2.0) mmol/L Calcium 8.4 (8.4-10.2) mg/dL Magnesium 2.2 (1.6-2.3) mg/dL Total Bilirubin 0.3 (0.2-1.3) mg/dL AST 30 (14-36) U/L ALT 31 (4-34) U/L Alkaline Phosphatase 142 H (38-126) U/L Troponin I (0.000-0.034) ng/mL NT-Pro-B Natriuret Pep 55611 pg/mL Total Protein 4.9 L (6.3-8.2) g/dL Albumin 2.4 L (3.5-5.0) g/dL Coronavirus (PCR) (Not Detectd) 10/03/22 10/03/22 Range/Units 10:25 10:25 WBC (3.8-10.6) k/uL RBC (3.80-5.40) m/uL Hgb (11.4-16.0) gm/dL Hct (34.0-46.0) % MCV (80.0-100.0) fL MCH (25.0-35.0) pg MCHC (31.0-37.0) g/dL RDW (11.5-15.5) % Plt Count (150-450) k/uL MPV Neutrophils % % Lymphocytes % % Monocytes % % Eosinophils % % Basophils % % Neutrophils # (1.3-7.7) k/uL Lymphocytes # (1.0-4.8) k/uL Monocytes # (0-1.0) k/uL Eosinophils # (0-0.7) k/uL Basophils # (0-0.2) k/uL Hypochromasia Poikilocytosis Anisocytosis Macrocytosis PT (9.0-12.0) sec INR (<1.2) APTT (22.0-30.0) sec D-Dimer (<0.60) mg/L FEU Sample Site ABG pH (7.35-7.45) ABG pCO2 (35-45) mmHg ABG pO2 (83-108) mmHg ABG HCO3 (21-25) mmol/L ABG Total CO2 (19-24) mmol/L ABG O2 Saturation (94-97) % ABG Base Excess mmol/L Saulo Test FiO2 % Sodium (137-145) mmol/L Potassium (3.5-5.1) mmol/L Chloride (98-107) mmol/L Carbon Dioxide (22-30) mmol/L Anion Gap mmol/L BUN (7-17) mg/dL Creatinine (0.52-1.04) mg/dL Est GFR (CKD-EPI)AfAm (>60 ml/min/1.73 sqM) Est GFR (CKD-EPI)NonAf (>60 ml/min/1.73 sqM) Glucose (74-99) mg/dL POC Glucose (mg/dL) (70-110) mg/dL POC Glu Addiction Treatment Counselor ID Plasma Lactic Acid Christ (0.7-2.0) mmol/L Calcium (8.4-10.2) mg/dL Magnesium (1.6-2.3) mg/dL Total Bilirubin (0.2-1.3) mg/dL AST (14-36) U/L ALT (4-34) U/L Alkaline Phosphatase (38-126) U/L Troponin I <0.012 (0.000-0.034) ng/mL NT-Pro-B Natriuret Pep pg/mL Total Protein (6.3-8.2) g/dL Albumin (3.5-5.0) g/dL Coronavirus (PCR) Not Detected (Not Detectd) Critical Care Time Critical Care Time: Yes Total Critical Care Time: 33 Disposition Clinical Impression: LISA (acute kidney injury), Acute respiratory failure, Congestive heart failure, Metabolic acidosis Disposition: ADMITTED IP TO THIS HOSP Condition: Serious Is patient prescribed a controlled substance at d/c from ED?: No Referrals: Anthony Srinivasan DO [Primary Care Provider] - 1-2 days Time of Disposition: 11:15
[2022-10-03 10:21] LABS: Glucose,Whole Blood 148 mg/dL (70-110)
[2022-10-03 10:24] LABS: ABG HCO3 12 mmol/L (21-25); ABG Oxygen Saturation 91.9 % (94-97); ABG PCO2 42 mmHg (35-45); ABG PO2 74 mmHg (83-108); ABG TCO2 13 mmol/L (19-24); Allen Test Performed? Yes
[2022-10-03 10:30] LABS: ABG PH 7.07 (7.35-7.45)
--- NOTE | 2022-10-03 10:32 | XR ---
EXAMINATION TYPE: XR chest 1V portable DATE OF EXAM: 10/03/2022 10:24 AM COMPARISON: 09/26/2022 TECHNIQUE: XR chest 1V portable Frontal view of the chest. CLINICAL INDICATION:Female, 71 years old with history of dyspnea; FINDINGS: Lungs/Pleura: There is new left upper lung generalized haziness with small bilateral pleural effusion s. Additional right perihilar haziness is also present. Small bilateral pleural effusions are present Pulmonary vascularity: Unremarkable. Heart/mediastinum: Cardiomediastinal silhouette is unremarkable. Musculoskeletal: No acute osseous pathology. IMPRESSION: New haziness within the left upper lung and right perihilar regions. Correlate with serum BNP for con gestive heart failure and for new pneumonia. Attention follow-up imaging.
[2022-10-03 10:48] LABS: ALT 31 U/L (4-34); AST 30 U/L (14-36); African American GFR (CKD) 10 (>60 ml/min/1.73 sqM); Albumin 2.4 g/dL (3.5-5.0); Alkaline Phosphatase 142 U/L (38-126); Anion Gap 15 mmol/L; Blood Urea Nitrogen 41 mg/dL (7-17); Calcium 8.4 mg/dL (8.4-10.2); Carbon Dioxide 12 mmol/L (22-30); Chloride 113 mmol/L (98-107); Glucose 139 mg/dL (74-99); Magnesium 2.2 mg/dL (1.6-2.3); Non-African American GFR(CKD) 9 (>60 ml/min/1.73 sqM); Potassium 5.3 mmol/L (3.5-5.1); Sodium 140 mmol/L (137-145); Total Bilirubin 0.3 mg/dL (0.2-1.3); Total Protein 4.9 g/dL (6.3-8.2)
[2022-10-03 10:50] LABS: INR 1.6 (<1.2); Partial Thromboplastin Time 26.3 sec (22.0-30.0); Prothrombin Time 15.5 sec (9.0-12.0)
[2022-10-03 10:53] LABS: Anisocytosis Moderate; Basophils # (A) 0.1 k/uL (0-0.2); Basophils % (A) 0 %; Eosinophils # (A) 0.1 k/uL (0-0.7); Eosinophils % (A) 1 %; HCT 35.2 % (34.0-46.0); Hypochromasia Marked; Lymphocytes # (A) 0.9 k/uL (1.0-4.8); Lymphocytes % (A) 4 %; MCH 28.3 pg (25.0-35.0); MCHC 28.3 g/dL (31.0-37.0); MCV 99.9 fL (80.0-100.0); Macrocytosis Marked; Mean Platelet Volume 9.5; Monocytes # (A) 0.8 k/uL (0-1.0); Monocytes % (A) 4 %; Neutrophils # (A) 20.6 k/uL (1.3-7.7); Neutrophils % (A) 90 %; Platelet Count 201 k/uL (150-450); Poikilocytosis Slight; RBC 3.53 m/uL (3.80-5.40); RDW 22.8 % (11.5-15.5); WBC 22.8 k/uL (3.8-10.6)
[2022-10-03 10:54] LABS: NT-Pro-B-Type Natriuretic Pept 12000 pg/mL
[2022-10-03] MEDS ORDERED: IPRATROPIUM-ALBUTEROL 3 ML NEB INHALATION PRN (11:18)
[2022-10-03] MEDS ORDERED: AZITHROMYCIN 500 MG in SODIUM CHLORIDE 0.9% 250 ML IVPB STA (11:18)
[2022-10-03] MEDS ORDERED: PNEUMONIA PROTOCOL UTILIZED 1 EACH MISC PO PRN (11:18)
[2022-10-03] MEDS ORDERED: SODIUM CHLORIDE 0.9% 500 ML 500 ML IV STA (11:20)
[2022-10-03] MEDS ORDERED: DEXTROSE 5% IN WATER 1,000 ML with SODIUM BICARB (1 MEQ/ML) 150 ML IV SCH (11:30)
[2022-10-03] MEDS ORDERED: SODIUM CHLORIDE 0.9% 1,000 ML IV SCH (11:30)
[2022-10-03] MEDS: IPRATROPIUM-ALBUTEROL 3 ML NEB INHALATION SCH ×3 (12:28→19:35)
--- NOTE | 2022-10-03 12:29 | P.HPIM ---
History of Present Illness This is a pleasant 71 years old female with multiple medical problems including Diabetes Mellitus, Hypertension, NEUROPATHY, MIGRAINES, fractured right shoulder,s/p Bariatric Surgery, Bladder Surgery, Hysterectomy, COPD altered mentation and respiratorty distress. The pt was found by the pts this morning in her recliner chair with belly breathing and difficult to arouse. Patient currently on BiPAP machine but she can answer some questions although she looks tired and lethargic. Patient says she's been feeling short of breath for the last 2-3 days with no chest pain or coughing. Was progressively getting worse. Patient basically denies other symptoms like no headache dizziness weakness or numbness. No abdominal pain vomiting or diarrhea. No urinary complaints. SHE admits to some vaginal discharge for 3 days. On admission she was tachypneic about 40/m, blood pressure 95/56. Patient is afebrile Also patient with leukocytosis 22.8, hemoglobin 10. Platelet count within the reference range INR 1.6. D-dimer 0.67. Arterial pH is low 7.0. PO2 74. CO2 within the reference range at 42. Potassium 5.3. Creatinine elevated 4.8, with a baseline 1.3-1.4 liver enzymes and bilirubin unremarkable. ProBNP 12,000. Troponin negative. Childress v is not detected EKG: Normal sinus rhythm at [address]-T changes. Chest x-ray: Haziness within the left upper lung and right perihilar regions correlate with serum BNP 4 congestive heart failure and for a new pneumonia. I reviewed chest x-ray by myself also the suspicion of pleural effusion On admission patient was started on Review of Systems Review of systems CONSTITUTIONAL: No fever, no malaise, no fatigue. HEENT: No recent visual problems or hearing problems. Denied any sore throat. CARDIOVASCULAR: No orthopnea, PND, no palpitations, no syncope. PULMONARY: No chest wall tenderness, no hemoptysis. GASTROINTESTINAL: No diarrhea, no nausea, no vomiting, no abdominal pain. Normoactive bowel sounds. NEUROLOGICAL: No headaches, no weakness, no numbness. HEMATOLOGICAL: Denies any bleeding or petechiae. GENITOURINARY: Denies any burning micturition, frequency, or urgency. MUSCULOSKELETAL/RHEUMATOLOGICAL: Denies any joint pain, swelling, or any muscle pain. ENDOCRINE: Denies any polyuria or polydipsia. Past Medical History Past Medical History: Diabetes Mellitus, Hypertension, Neurologic Disorder Additional Past Medical History / Comment(s): NEUROPATHY, MIGRAINES, fractured right shoulder, urine MDRO History of Any Multi-Drug Resistant Organisms: CRE, ESBL Date of last positivie culture/infection: 06/29/22 CP-CRE & ESBL MDRO Source:: Blood and [id number] Past Surgical History: Bariatric Surgery, Bladder Surgery, Hysterectomy Additional Past Surgical History / Comment(s): ORAL SURGERY. COLONOSCOPY. LAP BAND THEN HAD BARIATRIC SURGERY;. bladder surgery may have been for a benign cyst but is not sure. 16 LBS ABD. TISSUE REMOVED Past Anesthesia/Blood Transfusion Reactions: No Reported Reaction Past Psychological History: Anxiety, Depression Smoking Status: Never smoker Past Alcohol Use History: None Reported Past Drug Use History: None Reported - Past Family History Mother Family Medical History: Diabetes Mellitus Additional Family Medical History / Comment(s): At [facility] with UTI. Father Family Medical History: CVA/TIA, Diabetes Mellitus Sister(s) Family Medical History: Deep Vein Thrombosis (DVT) Medications and Allergies Home Medications Medication Instructions Recorded Confirmed Type Oxybutynin Chloride 5 mg PO BID 05/15/18 09/24/22 History Albuterol Sulfate [Albuterol 2 puff PO RT-QID PRN 06/29/22 09/24/22 History Sulfate Hfa] Alendronate Sodium [Fosamax] 70 mg PO WE 06/29/22 09/24/22 History Benzonatate [Tessalon Perles] 100 mg PO TID PRN 06/29/22 09/24/22 History Apixaban [Eliquis] 5 mg PO BID #60 tab 07/05/22 09/24/22 Rx Acetaminophen Tab [Tylenol] 325 mg PO Q6HR PRN tab 07/07/22 09/24/22 Rx Calcium Carbonate [Tums] 1,000 mg PO BID tab 07/07/22 09/24/22 Rx Cholecalciferol [Vitamin D3 (125 125 mcg PO DAILY tab 07/07/22 09/24/22 Rx Mcg = 5000 Iu)] Famotidine [Pepcid] 20 mg PO BID #60 tablet 07/07/22 09/24/22 Rx Ipratropium-Albuterol Nebulize 3 ml INHALATION RT-QID PRN each 07/07/22 09/24/22 Rx [Duoneb 0.5 mg-3 mg/3 ml Soln] Loperamide [Imodium] 2 mg PO QID PRN cap 07/07/22 09/24/22 Rx Furosemide [Lasix] 20 mg PO DAILY 08/14/22 09/24/22 History buPROPion XL [Wellbutrin XL] 150 mg PO DAILY 09/24/22 09/24/22 History Amiodarone [Cordarone] 200 mg PO DAILY #30 tab 09/29/22 Rx Fluconazole [Diflucan] 100 mg PO DAILY 7 Days #7 tab 09/29/22 Rx Metoprolol Tartrate [Lopressor] 25 mg PO BID #60 tab 09/29/22 Rx Allergies Allergy/AdvReac Type Severity Reaction Status Date / Time meperidine [From Demerol] AdvReac Nausea & Verified 10/03/22 10:24 Vomiting Penicillins AdvReac "FALLS Verified 10/03/22 10:24 ALOT"/Weakness Sulfa (Sulfonamide AdvReac Nausea & Verified 10/03/22 10:24 Antibiotics) Vomiting Physical Exam Vitals: Vital Signs Temp Pulse Resp BP Pulse Ox FiO2 10/03/22 11:17 77 22 93/44 96 10/03/22 10:33 80 10/03/22 10:29 40 H 10/03/22 10:27 80 39 H 98/52 98 10/03/22 10:20 60 10/03/22 10:13 95.5 F L 81 40 H 95/56 88 L Intake and Output 10/02/22 10/03/22 10/03/22 22:59 06:59 14:59 Other: Weight 72.7 kg -GENERAL: The patient is alert and oriented x3, in moderate acute respiratory distress. Well developed, well nourished. Patient currently on BiPAP HEENT: Pupils are round and equally reacting to light. EOMI. No scleral icterus. No conjunctival pallor. Normocephalic, atraumatic. No pharyngeal erythema. No thyromegaly. CARDIOVASCULAR: S1 and S2 present. No murmurs, rubs, or gallops. -PULMONARY: Chest is clear to auscultation, no wheezing , no crackles. Decreased air entry especially abdomen lung bases, tachypnea ABDOMEN: Soft, nontender, nondistended, normoactive bowel sounds. No palpable organomegaly. MUSCULOSKELETAL: No joint swelling or deformity. -EXTREMITIES: No cyanosis, clubbing, or bilateral extremity edema NEUROLOGICAL: Gross neurological examination did not reveal any focal deficits. SKIN: No rashes. no petechiae. Results CBC & Chem 7: 10/03/22 10:25 10/03/22 10:25 Labs: Abnormal Lab Results - Last 24 Hours (Table) 10/03/22 10/03/22 10/03/22 Range/Units 10:20 10:20 10:25 WBC 22.8 H (3.8-10.6) k/uL RBC 3.53 L (3.80-5.40) m/uL Hgb 10.0 L (11.4-16.0) gm/dL MCHC 28.3 L (31.0-37.0) g/dL RDW 22.8 H (11.5-15.5) % Neutrophils # 20.6 H (1.3-7.7) k/uL Lymphocytes # 0.9 L (1.0-4.8) k/uL Macrocytosis Marked A PT (9.0-12.0) sec INR (<1.2) D-Dimer (<0.60) mg/L FEU ABG pH 7.07 L* (7.35-7.45) ABG pO2 74 L (83-108) mmHg ABG HCO3 12 L (21-25) mmol/L ABG Total CO2 13 L (19-24) mmol/L ABG O2 Saturation 91.9 L (94-97) % Potassium (3.5-5.1) mmol/L Chloride (98-107) mmol/L Carbon Dioxide (22-30) mmol/L BUN (7-17) mg/dL Creatinine (0.52-1.04) mg/dL Glucose (74-99) mg/dL POC Glucose (mg/dL) 148 H (70-110) mg/dL Alkaline Phosphatase (38-126) U/L Total Protein (6.3-8.2) g/dL Albumin (3.5-5.0) g/dL 10/03/22 10/03/22 Range/Units 10:25 10:25 WBC (3.8-10.6) k/uL RBC (3.80-5.40) m/uL Hgb (11.4-16.0) gm/dL MCHC (31.0-37.0) g/dL RDW (11.5-15.5) % Neutrophils # (1.3-7.7) k/uL Lymphocytes # (1.0-4.8) k/uL Macrocytosis PT 15.5 H (9.0-12.0) sec INR 1.6 H (<1.2) D-Dimer 0.67 H (<0.60) mg/L FEU ABG pH (7.35-7.45) ABG pO2 (83-108) mmHg ABG HCO3 (21-25) mmol/L ABG Total CO2 (19-24) mmol/L ABG O2 Saturation (94-97) % Potassium 5.3 H (3.5-5.1) mmol/L Chloride 113 H (98-107) mmol/L Carbon Dioxide 12 L (22-30) mmol/L BUN 41 H (7-17) mg/dL Creatinine 4.80 H (0.52-1.04) mg/dL Glucose 139 H (74-99) mg/dL POC Glucose (mg/dL) (70-110) mg/dL Alkaline Phosphatase 142 H (38-126) U/L Total Protein 4.9 L (6.3-8.2) g/dL Albumin 2.4 L (3.5-5.0) g/dL Assessment and Plan Assessment: Possible acute pneumonia Possible acute congestive heart failure Borderline low blood pressure Acute hypoxic respiratory failure Severe metabolic acidosis Acute kidney injury on chronic kidney disease stage III Diabetes mellitus Hypertension History of neuropathy and migraine History of bariatric surgery Obesity with BMI of 30.3 Plan: Continue with antibiotics Zithromax. Ceftriaxone . Follow-up culture results. And urine legionella. Continue with oxygen and BiPAP as needed. Patient on bicarbonate drip. Started in the emergency room. Symptomatic vaginal swab Labs and medication were reviewed.. Continue same treatment. Continue with symptomatic treatment. Resume home medication. Monitor labs and vitals. DVT and GI prophylaxis. Further recommendations as per clinical course of the patient DVT prophylaxis:Huey is listed as one of her home medication pending verification by pharmacy GI Prophylaxis: Pepcid PT/OT: Pending Prognosis is guarded
[2022-10-03] MEDS: FUROSEMIDE 100 MG in SODIUM CHLORIDE 0.9% 90 ML IV SCH ×2 (13:00→20:09)
--- NOTE | 2022-10-03 13:16 | US ---
EXAMINATION TYPE: US renals and bladder DATE OF EXAM: 10/03/2022 COMPARISON: Renal ultrasound 07/01/2022, CT abdomen pelvis 09/26/2022. CLINICAL INDICATION: Female, 71 years old with history of arf/hydronephrosis; hematuria. history of k idney stones EXAM MEASUREMENTS: Right Kidney: 6.1 x 3.1 x 3.4 cm Left Kidney: 9.1 x 5.3 x 4.4 cm technical limitations due to patient's body habitus and overlying bowel gas. Patient unable to roll from supine position Right Kidney: atrophic. Largest stone = 1.3cm Left Kidney: limited evaluation. Mild hydronephrosis. Largest stone = 0.7cm Bladder: Krishnamurthy Mild left hydronephrosis. Atrophic appearance of the right kidney without hydronephrosis. Nonobstruct jared bilateral renal calculi. No definitive solid masses involving both kidneys. Urinary bladder is de compressed with for catheter in place which limits evaluation. IMPRESSION: Limited examination due to patient's body habitus and overlying bowel gas. 1. Mild left hydronephrosis redemonstrated when compared to prior CT. 2. Nonobstructive bilateral renal calculi. 3. Atrophic right kidney
--- NOTE | 2022-10-03 14:15 | P.CNPUL ---
History of Present Illness Consult date: 10/03/22 Requesting physician: Timothy E Sheet Reason for consult: other (Hypotension and acute hypoxic respiratory failure) Chief complaint: Shortness of breath and altered mental status. History of present illness: This is a 71-year-old female with history of multiple medical problems including type 2 diabetes, hypertension, diabetic neuropathy, migraine cephalgia, COPD, patient was recently in the hospital with nephrolithiasis, and hydronephrosis. She was seen by urology on consultation, and no surgical intervention was felt to be necessary for her nephrolithiasis or mild hydronephrosis. Patient was treated conservatively, she was discharged home on the . Patient was brought into the ER today complaining of shortness of breath and mental status change. Apparently upon arrival to the ER, the patient was in respiratory distress, she was also confused, patient was placed on BiPAP. Her initial ABG on arrival showed a pO2 of 74 pCO2 42 pH of 7.07 consistent with severe metabolic acidosis. Her bicarb was only 12. BUN is 41 and creatinine 4.80 however her creatinine was in the range of 1.30 just a few days ago. Obviously the patient had developed worsening renal failure, severe metabolic acidosis secondary to her renal failure, and her chest x-ray showed evidence of multiple interstitial infiltrates/edema I favor pulmonary edema since the patient is known to have history of mild LV dysfunction with ejection fraction of 45%, and now she has acute renal failure with possibly fluid overload. Underlying pneumonia is not entirely ruled out but felt to be less likely. Patient did have leukocytosis she also did have elevated BNP level, however her pro calcitonin is pending. Renal ultrasound done today, continues to show mild the left hydronephrosis similar to what she had on the last admission, and she had nonobstructive bilateral renal calculi with atrophic right kidney nephrology consultation is pending. In the meantime the patient was placed empirically on antibiotics in the form of Rocephin and Zithromax. Looking at previous urine cultures from the last admission, patient did have Enterococcus faecium/VRE positive cultures and the urine and previously she had history of ESBL Klebsiella pneumoniae infection in the urine considering this, the patient will need to be covered with daptomycin and will definitely arrange for consultation by infectious disease on the case. As the patient may have underlying urinary tract infection and urosepsis. Review of Systems CONSTITUTIONAL: Generalized weakness, no fever no chills HEENT: Negative CARDIOVASCULAR: Negative PULMONARY: Shortness of breath as noted in HPI GASTROINTESTINAL: Negative NEUROLOGICAL: Negative HEMATOLOGICAL: Negative GENITOURINARY: As noted in HPI MUSCULOSKELETAL/RHEUMATOLOGICAL: Negative ENDOCRINE: Negative Past Medical History Past Medical History: Diabetes Mellitus, Hypertension, Neurologic Disorder Additional Past Medical History / Comment(s): NEUROPATHY, MIGRAINES, fractured r ight shoulder, urine MDRO History of Any Multi-Drug Resistant Organisms: CRE, ESBL Date of last positivie culture/infection: 06/29/22 CP-CRE & ESBL MDRO Source:: Blood and [id number]/ESBL Past Surgical History: Bariatric Surgery, Bladder Surgery, Hysterectomy Additional Past Surgical History / Comment(s): ORAL SURGERY. COLONOSCOPY. LAP BAND THEN HAD BARIATRIC SURGERY;. bladder surgery may have been for a benign cyst but is not sure. 16 LBS ABD. TISSUE REMOVED Past Anesthesia/Blood Transfusion Reactions: No Reported Reaction Past Psychological History: Anxiety, Depression Smoking Status: Never smoker Past Alcohol Use History: None Reported Past Drug Use History: None Reported - Past Family History Mother Family Medical History: Diabetes Mellitus Additional Family Medical History / Comment(s): At [facility] with UTI. Father Family Medical History: CVA/TIA, Diabetes Mellitus Sister(s) Family Medical History: Deep Vein Thrombosis (DVT) Medications and Allergies Home Medications Medication Instructions Recorded Confirmed Type Oxybutynin Chloride 5 mg PO BID 05/15/18 09/24/22 History Albuterol Sulfate [Albuterol 2 puff PO RT-QID PRN 06/29/22 09/24/22 History Sulfate Hfa] Alendronate Sodium [Fosamax] 70 mg PO WE 06/29/22 09/24/22 History Benzonatate [Tessalon Perles] 100 mg PO TID PRN 06/29/22 09/24/22 History Apixaban [Eliquis] 5 mg PO BID #60 tab 07/05/22 09/24/22 Rx Acetaminophen Tab [Tylenol] 325 mg PO Q6HR PRN tab 07/07/22 09/24/22 Rx Calcium Carbonate [Tums] 1,000 mg PO BID tab 07/07/22 09/24/22 Rx Cholecalciferol [Vitamin D3 (125 125 mcg PO DAILY tab 07/07/22 09/24/22 Rx Mcg = 5000 Iu)] Famotidine [Pepcid] 20 mg PO BID #60 tablet 07/07/22 09/24/22 Rx Ipratropium-Albuterol Nebulize 3 ml INHALATION RT-QID PRN each 07/07/22 09/24/22 Rx [Duoneb 0.5 mg-3 mg/3 ml Soln] Loperamide [Imodium] 2 mg PO QID PRN cap 07/07/22 09/24/22 Rx Furosemide [Lasix] 20 mg PO DAILY 08/14/22 09/24/22 History buPROPion XL [Wellbutrin XL] 150 mg PO DAILY 09/24/22 09/24/22 History Amiodarone [Cordarone] 200 mg PO DAILY #30 tab 09/29/22 Rx Fluconazole [Diflucan] 100 mg PO DAILY 7 Days #7 tab 09/29/22 Rx Metoprolol Tartrate [Lopressor] 25 mg PO BID #60 tab 09/29/22 Rx Allergies Allergy/AdvReac Type Severity Reaction Status Date / Time meperidine [From Demerol] AdvReac Nausea & Verified 10/03/22 10:24 Vomiting Penicillins AdvReac "FALLS Verified 10/03/22 10:24 ALOT"/Weakness Sulfa (Sulfonamide AdvReac Nausea & Verified 10/03/22 10:24 Antibiotics) Vomiting Physical Exam Vitals: Vital Signs Temp Pulse Resp BP Pulse Ox FiO2 10/03/22 13:50 97.7 F 73 31 H 93/60 95 10/03/22 13:30 73 36 H 102/62 95 10/03/22 13:13 77 36 H 96/57 93 L 10/03/22 12:55 97.8 F 76 34 H 92/50 100 10/03/22 12:40 78 10/03/22 12:28 72 80 10/03/22 12:05 75 30 H 93/52 100 10/03/22 11:17 77 22 93/44 96 10/03/22 10:33 80 10/03/22 10:29 40 H 10/03/22 10:27 80 39 H 98/52 98 10/03/22 10:20 60 10/03/22 10:13 95.5 F L 81 40 H 95/56 88 L Intake and Output 07/10/03/22 10/03/22 22:59 06:59 14:59 Other: Weight 72.7 kg Physical Exam : Revealed a 71-year-old female on BiPAP, in moderate distress. Head: Atraumatic, normocephalic EENT: [No neck masses.] [No thyromegaly.] [No JVD.] CheST Crackles and rhonchi noted bilaterally. Cardiac Exairregular irregular rhythm. Normal S1 and S2, no S3 gallop. Abdomen: [Soft, nontender, no megaly, no rebound, no guarding, normal bowel sounds.] Extremities: [No clubbing, no edema, no cyanosis.] Neurological Exam: [ alert and oriented 3 focal deficit. Psychiatric: Normal mood affect and normal mental status examination skin: Evidence of ecchymosis and bruising all over related to the fact that the patient was on eliquis. Results - Laboratory Findings CBC and BMP: 10/03/22 10:25 10/03/22 10:25 ABG ABG pH 7.07 (7.35-7.45) L* 10/03/22 10:20 ABG pCO2 42 mmHg (35-45) 10/03/22 10:20 ABG pO2 74 mmHg (83-108) L 10/03/22 10:20 ABG O2 Saturation 91.9 % (94-97) L 10/03/22 10:20 PT/INR, D-dimer PT 15.5 sec (9.0-12.0) H 10/03/22 10:25 INR 1.6 (<1.2) H 10/03/22 10:25 D-Dimer 0.67 mg/L FEU (<0.60) H 10/03/22 10:25 Abnormal lab findings: Abnormal Labs 10/03/22 10/03/22 10/03/22 10:20 10:20 10:25 WBC 22.8 H RBC 3.53 L Hgb 10.0 L MCHC 28.3 L RDW 22.8 H Neutrophils # 20.6 H Lymphocytes # 0.9 L Macrocytosis Marked A PT INR D-Dimer ABG pH 7.07 L* ABG pO2 74 L ABG HCO3 12 L ABG Total CO2 13 L ABG O2 Saturation 91.9 L Potassium Chloride Carbon Dioxide BUN Creatinine Glucose POC Glucose (mg/dL) 148 H Alkaline Phosphatase Total Protein Albumin 10/03/22 10/03/22 10:25 10:25 WBC RBC Hgb MCHC RDW Neutrophils # Lymphocytes # Macrocytosis PT 15.5 H INR 1.6 H D-Dimer 0.67 H ABG pH ABG pO2 ABG HCO3 ABG Total CO2 ABG O2 Saturation Potassium 5.3 H Chloride 113 H Carbon Dioxide 12 L BUN 41 H Creatinine 4.80 H Glucose 139 H POC Glucose (mg/dL) Alkaline Phosphatase 142 H Total Protein 4.9 L Albumin 2.4 L - Diagnostic Findings Chest x-ray: image reviewed (As noted in HPI ) Additional studies: Renal ultrasound as noted in HPI Assessment and Plan Assessment: Impression: Acute hypoxic respiratory failure Acute sepsis and possible septic shock, most likely source is urine Strongly suspect pulmonary edema, could be cardiogenic or noncardiogenic in nature Doubt pneumonia, although is not entirely ruled out. Severe metabolic acidosis secondary to acute kidney injury History of chronic kidney disease stage III Benign essential hypertension Diabetic neuropathy History of bariatric surgery Recommendation: Admit patient to the ICU She will likely need central access for pressors We will avoid fluid boluses at this point as the patient may be having acute pulmonary edema Empiric antibiotics and suggest patient to go on daptomycin and ID to see on consultation Patient to go on diuretics and nephrology should evaluate the patient consider urology consultation GI and DVT prophylaxis We will continue to follow. Titrate FiO2 and continue BiPAP for now if condition gets worse patient needs to be intubated and mechanically ventilated Sodium bicarb drip for his severe acute metabolic acidosis. Patient is critically ill, We will continue to follow. Time with Patient: Greater than 30
[2022-10-03 14:17] LABS: Glucose,Whole Blood 122 mg/dL (70-110)
[2022-10-03] MEDS ORDERED: NALOXONE 0.4 MG/ML 1 ML VIAL IV PRN (14:19)
[2022-10-03] MEDS ORDERED: SODIUM BICARB 8.4% 50 ML SYR (1 MEQ/ML) ONE (14:25)
[2022-10-03] MEDS ORDERED: SODIUM BICARB 8.4% 50 ML SYR (1 MEQ/ML) IV STA ×2 (14:26→16:23)
[2022-10-03] MEDS: NOREPINEPHRINE 4 MG in SODIUM CHLORIDE 0.9% 250 ML IV ONE ×2 (14:49→20:08)
[2022-10-03] MEDS: HYDROmorphone 0.5 MG/0.5 ML SYRINGE IVP PRN (15:03)
[2022-10-03] MEDS: DEXTROSE 5% IN WATER 1,000 ML with SODIUM BICARB (1 MEQ/ML) 150 ML IV SCH (15:03)
--- NOTE | 2022-10-03 15:15 | OP ---
OPERATIVE REPORT DATE OF SERVICE : PROCEDURE PERFORMED: Placement of right femoral triple-lumen catheter. PREOPERATIVE DIAGNOSES: Hypotension, possible sepsis and septic shock, the patient may require pressors. POSTOPERATIVE DIAGNOSES: Hypotension, possible sepsis and septic shock, the patient may require pressors. ANESTHESIA USED: 2 mL of 1% lidocaine. DESCRIPTION OF PROCEDURE: The patient was placed in the supine position, the right groin was prepared in a sterile fashion and drapes were applied. The right femoral region was anesthetized using 2 mL of 1% lidocaine. Then, the right femoral vein was easily cannulated, a guidewire was placed, and a triple-lumen catheter was inserted over the guidewire, and the guidewire was removed. Good blood flow was noted in the three different ports of the triple-lumen catheter. Line was secured using 3-0 silk sutures, no complications. MMODL / IJN: [id number] /
--- NOTE | 2022-10-03 15:18 | OP ---
OPERATIVE REPORT DATE OF SERVICE : PROCEDURE PERFORMED: Placement of a femoral arterial line. PREOPERATIVE DIAGNOSES: Hypotension and sepsis. POSTOPERATIVE DIAGNOSES: Hypotension and sepsis. ANESTHESIA USED: None deployed. DESCRIPTION OF PROCEDURE: The patient was placed in the supine position, the right femoral region was prepared in a sterile fashion. Drapes were applied. The right femoral artery was palpated, easily cannulated, a guidewire was placed, area around the guidewire was dilated, a femoral arterial catheter was used and advanced over the guidewire, the guidewire was removed. Good blood flow. Good waveform. No complications. Line was secured using 3-0 silk sutures. MMODL / IJN: [id number] /
[2022-10-03 16:12] LABS: ABG Base Excess -13.9 mmol/L; ABG HCO3 15 mmol/L (21-25); ABG Oxygen Saturation 96.1 % (94-97); ABG PCO2 42 mmHg (35-45); ABG PO2 89 mmHg (83-108); ABG TCO2 16 mmol/L (19-24)
[2022-10-03 16:13] LABS: ABG PH 7.16 (7.35-7.45)
[2022-10-03 16:14] LABS: Allen Test Performed? no
[2022-10-03] MEDS: DAPTOmycin 500 MG in SODIUM CHLORIDE 0.9% 50 ML IVPB SCH (16:35)
[2022-10-03] MEDS: FLUCONAZOLE 100 MG TAB PO SCH (16:36)
--- NOTE | 2022-10-03 19:58 | P.NPCON ---
History of Present Illness - Reason for Consult acute renal failure - History of Present Illness Patient is a 71-year-old female with history of type 2 diabetes, hypertension, COPD and bilateral nephrolithiasis with atrophic right kidney and left hydronephrosis. Patient was evaluated by urology in June 2022 but I do not believe any intervention was performed. Patient was recently discharged on 719 from a recent hospitalization for UTI. Computed tomography scan on 09/26/2022 showed bilateral renal calculi with atrophic right kidney and mild left hydronephrosis. Patient was not seen by urology during that hospitalization. Patient is readmitted now with complaints of shortness of breath and mental status changes. Chest x-ray on admission showed bilateral pulmonary infiltrate suggestive of interstitial edema. He shouldn't is known to have an ejection fraction of 45%. She was also noted to be significantly acidotic with CO2 of 12 on electrolytes. Serum creatinine was 4.8. Previous creatinine was 1.3 on 09/26/2022. Blood pressure has been slightly on the lower side however patient is not maintained on pressors. Patient is currently maintained on bicarb drip as well as Lasix drip as she had poor urine output in the ER. Since the Lasix drip was started patient has had good urine output at about 1 50 mL per hour. She is currently on a nonrebreather mask. O2 sats at 95-97%. Review of Systems As per HPI Past Medical History Past Medical History: Diabetes Mellitus, Hypertension, Neurologic Disorder, Renal Disease Additional Past Medical History / Comment(s): NEUROPATHY, MIGRAINES, fractured right shoulder, urine MDRO History of Any Multi-Drug Resistant Organisms: CRE, ESBL, VRE Date of last positivie culture/infection: 06/29/22 CP-CRE & ESBL MDRO Source:: Blood and [id number]-[id number]/ESBL Past Surgical History: Bariatric Surgery, Bladder Surgery, Hysterectomy Additional Past Surgical History / Comment(s): ORAL SURGERY. COLONOSCOPY. LAP BAND THEN HAD BARIATRIC SURGERY;. bladder surgery may have been for a benign cyst but is not sure. 16 LBS ABD. TISSUE REMOVED Past Anesthesia/Blood Transfusion Reactions: No Reported Reaction Past Psychological History: Anxiety, Depression Additional Psychological History / Comment(s): Isabela is support dog. Lives with spouse, live in [facility]. Patient uses an electric wheelchair for long distance. Smoking Status: Never smoker Past Alcohol Use History: None Reported Additional Past Alcohol Use History / Comment(s): TRIED SMOKING AT AGE 18 Past Drug Use History: None Reported - Past Family History Mother Family Medical History: Diabetes Mellitus Additional Family Medical History / Comment(s): At [facility] with UTI. Father Family Medical History: CVA/TIA, Diabetes Mellitus Sister(s) Family Medical History: Deep Vein Thrombosis (DVT) Medications and Allergies Home Medications Medication Instructions Recorded Confirmed Type Oxybutynin Chloride 5 mg PO BID 05/15/18 10/03/22 History Albuterol Sulfate [Albuterol 2 puff PO RT-QID PRN 06/29/22 10/03/22 History Sulfate Hfa] Alendronate Sodium [Fosamax] 70 mg PO WE 06/29/22 10/03/22 History Benzonatate [Tessalon Perles] 100 mg PO TID PRN 06/29/22 10/03/22 History Apixaban [Eliquis] 5 mg PO BID #60 tab 07/05/22 10/03/22 Rx Acetaminophen Tab [Tylenol] 325 mg PO Q6HR PRN tab 07/07/22 10/03/22 Rx Calcium Carbonate [Tums] 1,000 mg PO BID tab 07/07/22 10/03/22 Rx Cholecalciferol [Vitamin D3 (125 125 mcg PO DAILY tab 07/07/22 10/03/22 Rx Mcg = 5000 Iu)] Famotidine [Pepcid] 20 mg PO BID #60 tablet 07/07/22 10/03/22 Rx Ipratropium-Albuterol Nebulize 3 ml INHALATION RT-QID PRN each 07/07/22 10/03/22 Rx [Duoneb 0.5 mg-3 mg/3 ml Soln] Loperamide [Imodium] 2 mg PO QID PRN cap 07/07/22 10/03/22 Rx Furosemide [Lasix] 20 mg PO DAILY 08/14/22 10/03/22 History buPROPion XL [Wellbutrin XL] 150 mg PO DAILY 09/24/22 10/03/22 History Amiodarone [Cordarone] 200 mg PO DAILY #30 tab 09/29/22 10/03/22 Rx Fluconazole [Diflucan] 100 mg PO DAILY 7 Days #7 tab 09/29/22 10/03/22 Rx Metoprolol Tartrate [Lopressor] 25 mg PO BID #60 tab 09/29/22 10/03/22 Rx Allergies Allergy/AdvReac Type Severity Reaction Status Date / Time meperidine [From Demerol] AdvReac Nausea & Verified 10/03/22 14:53 Vomiting Penicillins AdvReac "FALLS Verified 10/03/22 14:53 ALOT"/Weakness Sulfa (Sulfonamide AdvReac Nausea & Verified 10/03/22 14:53 Antibiotics) Vomiting Physical Exam Vitals: Vital Signs Temp Pulse Resp BP Pulse Ox FiO2 10/03/22 19:35 81 10/03/22 19:00 78 16 97 10/03/22 18:30 75 37 H 95 10/03/22 18:00 74 31 H 97 70 10/03/22 17:30 73 32 H 96 10/03/22 17:00 75 31 H 91 L 10/03/22 16:45 84 32 H 100 10/03/22 16:30 74 32 H 93 L 70 10/03/22 16:15 74 21 10/03/22 16:00 73 25 H 10/03/22 15:45 73 30 H 10/03/22 15:30 73 25 H 10/03/22 15:15 73 31 H 10/03/22 15:10 73 33 H 95/63 10/03/22 15:03 63 10/03/22 15:00 67 40 H 102/54 97 10/03/22 14:53 63 10/03/22 14:51 70 10/03/22 14:50 93.9 F L 68 22 91 L 70 10/03/22 14:40 73 36 H 10/03/22 14:30 72 40 H 10/03/22 14:20 67 40 H 102/54 90 L 10/03/22 14:10 71 22 10/03/22 14:08 36 H 10/03/22 13:50 97.7 F 73 31 H 93/60 95 10/03/22 13:30 73 36 H 102/62 95 10/03/22 13:13 77 36 H 96/57 93 L 10/03/22 12:55 97.8 F 76 34 H 92/50 100 10/03/22 12:40 78 10/03/22 12:28 72 80 10/03/22 12:05 75 30 H 93/52 100 10/03/22 11:17 77 22 93/44 96 10/03/22 10:33 80 10/03/22 10:29 40 H 10/03/22 10:27 80 39 H 98/52 98 10/03/22 10:20 60 10/03/22 10:13 95.5 F L 81 40 H 95/56 88 L Intake and Output 10/03/22 10/03/22 10/03/22 06:59 14:59 22:59 Intake Total 10 600 Output Total 350 960 Balance -340 -360 Intake: IV 10 550 Dextrose 5% in Water 1, 500 000 ml @ 100 mls/hr IV . [id number] ALBERTO with Sodium Bicarb (1 Meq/ml) 150 ml Rx#:[id number] Furosemide 100 mg In 10 50 Sodium Chloride 0.9% 90 ml @ 10 MG/HR 10 mls/hr IV .Q10H ALBERTO Rx#: [id number] Intake, IV Titration 50 Amount DAPTOmycin 500 mg In 50 Sodium Chloride 0.9% 50 ml @ 100 mls/hr IVPB Q48H ALBERTO Rx#:[id number] Output: Urine 350 960 Other: Voiding Method Indwelling Catheter Weight 72.7 kg 72.7 kg ABP, PAP, CO, CI - Last 8 Hours Arterial Blood Pressure 110/42 Arterial Blood Pressure 95/40 Arterial Blood Pressure 97/42 Arterial Blood Pressure 108/45 Arterial Blood Pressure 124/48 Arterial Blood Pressure 142/59 Arterial Blood Pressure 114/50 Arterial Blood Pressure 111/47 Arterial Blood Pressure 111/48 Arterial Blood Pressure 106/45 Arterial Blood Pressure 113/48 Arterial Blood Pressure 120/51 Arterial Blood Pressure 129/54 Arterial Blood Pressure 128/55 Arterial Blood Pressure 122/55 Patient is awake comfortable. 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 Acute kidney injury ATN nonoliguric secondary to hypotension and possibly cardiorenal as well. Urine output was low initially, currently improved with Lasix drip. 2. Chronic kidney disease with previous creatinine at 1.3 mg/dL NKF stage IIIa secondary to chronic nephrolithiasis and obstructive uropathy 3. Bilateral nephrolithiasis with right atrophic kidney and mild left hydronephrosis noted on computed tomography scan on 09/26/2022. Ultrasound from today shows mild left hydronephrosis and atrophic right kidney. 4. Severe metabolic acidosis associated with acute kidney injury and septic shock 5. Acute hypoxic respiratory failure secondary to CHF exacerbation 6. Acute systolic CHF, ejection fraction 45% 7. Mild hyperkalemia associated with acute kidney injury Plan: Continue with the bicarb drip as well as Lasix drip for now. Repeat labs this evening if the metabolic acidosis is improved we can decrease the rate of the bicarb drip due to volume overload Continue to avoid nephrotoxic agents Repeat labs in a.m. Consult urology if renal function does not improve. Next Thank you for the consultation. We will continue to follow the patient with you during her hospitalization
--- NOTE | 2022-10-03 23:05 | P.CONS ---
History of Present Illness - Reason for Consult Consult date: 10/03/22 VRE urine Requesting physician: Maicol Grove - Chief Complaint Weakness and mental status changes x one day - History of Present Illness Patient is a 71-year-old female with a past medical history negative for recurrent urinary tract infection she was recently admitted in this facility and treated for UTI there was concern for possible ESBL pathogen and the patient was treated with antibiotics and the patient did have clinical improvement unfortunately urine culture was not done on UA submitted from the hospital repeat UA did show mostly yeast and the patient received about a week of Zerbaxa and cultures were negative by the time patient was discharged on 09/29/2022 as it was recommended oral Diflucan on discharge patient is now brought back to the hospital for evaluation of difficulty in breathing with symptoms that has been getting worse for a day and 2 patient also noticed to be confused and in respiratory distress had evidence of metabolic acidosis patient on presentation to the hospital was hypothermic temperature of 95.5 F patient was tachycardic tachypneic and mildly hypotensive requiring fluid bolus and the patient has been admitted to the ICU she was noticed to have white count 22.8 did have elevated BUN/creatinine level exams are normal patient did have a chest x-ray haziness within the left upper lung and right perihilar region correlate with serum BNP for congestive heart failure or pneumonia patient was started on Rocephin and d aptomycin as the patient recent urine culture and got finalized after the patient was discharged from the hospital with the VRE and Cee albicans infectious he was consulted for further management of antibiotic therapy most information has been obtained from review the chart talking nursing staff and the patient has self under very good historian patient did tested negative for COVID-19, patient apparently was noticed to have extensive excoriation of her genital area per the nursing staff concerning for vaginal yeast infection Review of Systems Positive points has been mentioned in HPI complete review could not be obtained because of his underlying mental status Past Medical History Past Medical History: Diabetes Mellitus, Hypertension, Neurologic Disorder Additional Past Medical History / Comment(s): NEUROPATHY, MIGRAINES, fractured right shoulder, 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 COLONOSCOPY. LAP BAND THEN HAD BARIATRIC SURGERY;. bladder surgery may have been for a benign cyst but is not sure. 16 LBS ABD. TISSUE REMOVED Past Anesthesia/Blood Transfusion Reactions: No Reported Reaction Past Psychological History: Anxiety, Depression Smoking Status: Never smoker Past Alcohol Use History: None Reported Past Drug Use History: None Reported - Past Family History Mother Family Medical History: Diabetes Mellitus Additional Family Medical History / Comment(s): At [facility] with UTI. Father Family Medical History: CVA/TIA, Diabetes Mellitus Sister(s) Family Medical History: Deep Vein Thrombosis (DVT) Medications and Allergies Home Medications Medication Instructions Recorded Confirmed Type Oxybutynin Chloride 5 mg PO BID 05/15/18 10/03/22 History Albuterol Sulfate [Albuterol 2 puff PO RT-QID PRN 06/29/22 10/03/22 History Sulfate Hfa] Alendronate Sodium [Fosamax] 70 mg PO WE 06/29/22 10/03/22 History Benzonatate [Tessalon Perles] 100 mg PO TID PRN 06/29/22 10/03/22 History Apixaban [Eliquis] 5 mg PO BID #60 tab 07/05/22 10/03/22 Rx Acetaminophen Tab [Tylenol] 325 mg PO Q6HR PRN tab 07/07/22 10/03/22 Rx Calcium Carbonate [Tums] 1,000 mg PO BID tab 07/07/22 10/03/22 Rx Cholecalciferol [Vitamin D3 (125 125 mcg PO DAILY tab 07/07/22 10/03/22 Rx Mcg = 5000 Iu)] Famotidine [Pepcid] 20 mg PO BID #60 tablet 07/07/22 10/03/22 Rx Ipratropium-Albuterol Nebulize 3 ml INHALATION RT-QID PRN each 07/07/22 10/03/22 Rx [Duoneb 0.5 mg-3 mg/3 ml Soln] Loperamide [Imodium] 2 mg PO QID PRN cap 07/07/22 10/03/22 Rx Furosemide [Lasix] 20 mg PO DAILY 08/14/22 10/03/22 History buPROPion XL [Wellbutrin XL] 150 mg PO DAILY 09/24/22 10/03/22 History Amiodarone [Cordarone] 200 mg PO DAILY #30 tab 09/29/22 10/03/22 Rx Fluconazole [Diflucan] 100 mg PO DAILY 7 Days #7 tab 09/29/22 10/03/22 Rx Metoprolol Tartrate [Lopressor] 25 mg PO BID #60 tab 09/29/22 10/03/22 Rx Allergies Allergy/AdvReac Type Severity Reaction Status Date / Time meperidine [From Demerol] AdvReac Nausea & Verified 10/03/22 14:53 Vomiting Penicillins AdvReac "FALLS Verified 10/03/22 14:53 ALOT"/Weakness Sulfa (Sulfonamide AdvReac Nausea & Verified 10/03/22 14:53 Antibiotics) Vomiting Physical Exam Vitals: Vital Signs Temp Pulse Resp BP Pulse Ox FiO2 10/03/22 15:10 73 33 H 95/63 10/03/22 15:03 63 10/03/22 15:00 67 40 H 102/54 97 10/03/22 14:53 63 10/03/22 14:51 70 10/03/22 14:50 93.9 F L 68 22 91 L 70 10/03/22 14:40 73 36 H 10/03/22 14:30 72 40 H 10/03/22 14:20 67 40 H 102/54 90 L 10/03/22 14:10 71 22 10/03/22 14:08 36 H 10/03/22 13:50 97.7 F 73 31 H 93/60 95 10/03/22 13:30 73 36 H 102/62 95 10/03/22 13:13 77 36 H 96/57 93 L 10/03/22 12:55 97.8 F 76 34 H 92/50 100 10/03/22 12:40 78 10/03/22 12:28 72 80 10/03/22 12:05 75 30 H 93/52 100 10/03/22 11:17 77 22 93/44 96 10/03/22 10:33 80 10/03/22 10:29 40 H 10/03/22 10:27 80 39 H 98/52 98 10/03/22 10:20 60 10/03/22 10:13 95.5 F L 81 40 H 95/56 88 L Intake and Output 10/03/22 10/03/22 10/03/22 06:59 14:59 22:59 Other: Weight 72.7 kg ABP, PAP, CO, CI - Last 8 Hours Arterial Blood Pressure 129/54 Arterial Blood Pressure 128/55 Arterial Blood Pressure 122/55 GENERAL DESCRIPTION: Elderly female lying in bed in mild distress. No tachypnea or accessory muscle of respiration use. HEENT: Shows Pallor , no scleral icterus. Oral mucous membrane is dry. NECK: Trachea central, no thyromegaly. LUNGS: Unlabored breathing. Coarse breath sounds bilaterally HEART: S1, S2, regular rate and rhythm. No loud murmur ABDOMEN: Soft, no tenderness , guarding or rigidity, no organomegaly EXTREMITIES: No edema of feet. SKIN: No rash, no masses palpable. NEUROLOGICAL: The patient is lethargic orientation could not be determined Results CBC & Chem 7: 10/07/22 07:00 10/07/22 16:48 Labs: Abnormal Lab Results - Last 24 Hours (Table) 10/03/22 10/03/22 10/03/22 Range/Units 10:20 10:20 10:25 WBC 22.8 H (3.8-10.6) k/uL RBC 3.53 L (3.80-5.40) m/uL Hgb 10.0 L (11.4-16.0) gm/dL MCHC 28.3 L (31.0-37.0) g/dL RDW 22.8 H (11.5-15.5) % Neutrophils # 20.6 H (1.3-7.7) k/uL Lymphocytes # 0.9 L (1.0-4.8) k/uL Macrocytosis Marked A PT (9.0-12.0) sec INR (<1.2) D-Dimer (<0.60) mg/L FEU ABG pH 7.07 L* (7.35-7.45) ABG pO2 74 L (83-108) mmHg ABG HCO3 12 L (21-25) mmol/L ABG Total CO2 13 L (19-24) mmol/L ABG O2 Saturation 91.9 L (94-97) % Potassium (3.5-5.1) mmol/L Chloride (98-107) mmol/L Carbon Dioxide (22-30) mmol/L BUN (7-17) mg/dL Creatinine (0.52-1.04) mg/dL Glucose (74-99) mg/dL POC Glucose (mg/dL) 148 H (70-110) mg/dL Alkaline Phosphatase (38-126) U/L Total Protein (6.3-8.2) g/dL Albumin (3.5-5.0) g/dL 10/03/22 10/03/22 10/03/22 Range/Units 10:25 10:25 14:15 WBC (3.8-10.6) k/uL RBC (3.80-5.40) m/uL Hgb (11.4-16.0) gm/dL MCHC (31.0-37.0) g/dL RDW (11.5-15.5) % Neutrophils # (1.3-7.7) k/uL Lymphocytes # (1.0-4.8) k/uL Macrocytosis PT 15.5 H (9.0-12.0) sec INR 1.6 H (<1.2) D-Dimer 0.67 H (<0.60) mg/L FEU ABG pH (7.35-7.45) ABG pO2 (83-108) mmHg ABG HCO3 (21-25) mmol/L ABG Total CO2 (19-24) mmol/L ABG O2 Saturation (94-97) % Potassium 5.3 H (3.5-5.1) mmol/L Chloride 113 H (98-107) mmol/L Carbon Dioxide 12 L (22-30) mmol/L BUN 41 H (7-17) mg/dL Creatinine 4.80 H (0.52-1.04) mg/dL Glucose 139 H (74-99) mg/dL POC Glucose (mg/dL) 122 H (70-110) mg/dL Alkaline Phosphatase 142 H (38-126) U/L Total Protein 4.9 L (6.3-8.2) g/dL Albumin 2.4 L (3.5-5.0) g/dL Assessment and Plan (1) Acute pyelonephritis Status: Acute Code(s): N10 - ACUTE PYELONEPHRITIS SNOMED Code(s): 46787884 (2) Sepsis Status: Acute Code(s): A41.9 - SEPSIS, UNSPECIFIED ORGANISM SNOMED Code(s): 05990245 Plan: 1patient was in the hospital with sepsis in this patient noticed to be hypothermic tachypneic mild hypotension and elevated white count source is multifactorial concerning for UTI with recent urine culture positive for VRE plus minus a component of pneumonia with significant respiratory symptoms 2-patient with multiple antibiotic allergies that would limit the number of antibiotics safe to use 3-renal insufficiency that would limit the number of antibiotics safe to use 4-we will obtain UA and culture check a procalcitonin level 5-continue with the daptomycin however add cefepime to cover for possible gram- negative pneumonia while waiting for the work-up to be completed 6-patient also have extensive vaginal yeast infection we will add Diflucan We will follow on clinical condition and cultures to further adjust medication if needed Thank you for this consultation we will follow the patient along with you Dictation was produced using [employer] dictation software. please excuse any grammatical, word or spelling errors. Time with Patient: Greater than 30
[2022-10-03 23:40] LABS: Appearance,Urine Cloudy (Clear); Bacteria,Urine Occasional /hpf; Bilirubin,Urine Negative (Negative); Blood,Urine Large (Negative); Color,Urine Red; Glucose,Urine (UA) Negative (Negative); Ketones,Urine Negative (Negative); Leukocyte Esterase,Urine Large (Negative); Nitrite,Urine Negative (Negative); Protein,Urine 1+ (Negative); RBC,Urine >182 /hpf (0-5); Specific Gravity,Urine 1.017 (1.001-1.035); Urobilinogen,Urine <2.0 mg/dL (<2.0); WBC,Urine 142 /hpf (0-5)
[2022-10-04] MEDS: FAMOTIDINE 20 MG/2 ML VIAL IV SCH ×2 (00:25→21:13)
[2022-10-04] MEDS: CEFEPIME 1 GM in SODIUM CHLORIDE 0.9% 50 ML IVPB SCH ×3 (00:25→21:13)
[2022-10-04] MEDS: NOREPINEPHRINE 8 MG in SODIUM CHLORIDE 0.9% 250 ML IV SCH ×2 (00:25→22:03)
[2022-10-04] MEDS: HYDROmorphone 0.5 MG/0.5 ML SYRINGE IVP PRN ×6 (00:27→23:43)
[2022-10-04] MEDS: DEXTROSE 5% IN WATER 1,000 ML with SODIUM BICARB (1 MEQ/ML) 150 ML IV SCH (04:39)
[2022-10-04 05:17] LABS: Anisocytosis Moderate; Basophils % (A) 0 %; Eosinophils % (A) 0 %; HCT 29.9 % (34.0-46.0); HGB 9.6 gm/dL (11.4-16.0); Hypochromasia Marked; Lymphocytes # (A) 1.2 k/uL (1.0-4.8); Lymphocytes % (A) 7 %; MCH 30.5 pg (25.0-35.0); MCV 95.3 fL (80.0-100.0); Macrocytosis Moderate; Mean Platelet Volume 9.7; Monocytes # (A) 0.6 k/uL (0-1.0); Monocytes % (A) 4 %; Neutrophils # (A) 14.2 k/uL (1.3-7.7); Neutrophils % (A) 86 %; Platelet Count 147 k/uL (150-450); Poikilocytosis Slight; RBC 3.14 m/uL (3.80-5.40); RDW 22.9 % (11.5-15.5); WBC 16.6 k/uL (3.8-10.6)
[2022-10-04 05:29] LABS: African American GFR (CKD) 14 (>60 ml/min/1.73 sqM); Anion Gap 10 mmol/L; Blood Urea Nitrogen 40 mg/dL (7-17); Calcium 7.6 mg/dL (8.4-10.2); Carbon Dioxide 23 mmol/L (22-30); Chloride 107 mmol/L (98-107); Glucose 201 mg/dL (74-99); Non-African American GFR(CKD) 12 (>60 ml/min/1.73 sqM); Potassium 3.2 mmol/L (3.5-5.1); Sodium 140 mmol/L (137-145)
[2022-10-04] MEDS: POTASSIUM CHLORIDE 20 MEQ in WATER FOR INJECTION 1 100ML.BAG IVPB SCH ×4 (06:29→20:28)
[2022-10-04] MEDS: FUROSEMIDE 100 MG in SODIUM CHLORIDE 0.9% 90 ML IV SCH (07:05)
--- NOTE | 2022-10-04 07:22 | XR ---
EXAMINATION TYPE: XR chest 1V portable DATE OF EXAM: 10/04/2022 5:23 AM COMPARISON: Chest radiographs from 09/26/2022 TECHNIQUE: XR chest 1V portable Frontal view of the chest. CLINICAL INDICATION:Female, 71 years old with history of pneumonia; FINDINGS: Lungs/Pleura: Generalized haziness of left lung with right perihilar opacities. No evidence of focal consolidation or pneumothorax. Blunting of the costophrenic angles is present. Pulmonary vascularity: Unremarkable. Heart/mediastinum: Cardiomediastinal silhouette is enlarged and stable. Musculoskeletal: No acute osseous pathology. Deformity to the proximal right humerus compatible with prior fracture. Right upper quadrant cholecystectomy clips. IMPRESSION: Similar generalized haziness of left lung and right perihilar lesion with small bilateral pleural eff usions. Given cardiomegaly correlate for congestive heart failure. Consider pneumonia.
[2022-10-04] MEDS: PANTOPRAZOLE 40 MG/10 ML VIAL IV SCH (08:41)
[2022-10-04 09:00] LABS: Glucose,Whole Blood 178 mg/dL (70-110)
[2022-10-04] MEDS ORDERED: AZITHROMYCIN 500 MG TAB PO SCH (09:00)
[2022-10-04] MEDS: IPRATROPIUM-ALBUTEROL 3 ML NEB INHALATION SCH ×4 (09:03→19:57)
--- NOTE | 2022-10-04 10:07 | P.PN ---
Subjective Progress Note Date: 10/04/22 This is a 71-year-old female with history of multiple medical problems including type 2 diabetes, hypertension, diabetic neuropathy, migraine cephalgia, COPD, patient was recently in the hospital with nephrolithiasis, and hydronephrosis. She was seen by urology on consultation, and no surgical intervention was felt to be necessary for her nephrolithiasis or mild hydronephrosis. Patient was treated conservatively, she was discharged home on the . Patient was brought into the ER today complaining of shortness of breath and mental status change. Apparently upon arrival to the ER, the patient was in respiratory distress, she was also confused, patient was placed on BiPAP. Her initial ABG on arrival showed a pO2 of 74 pCO2 42 pH of 7.07 consistent with severe metabolic acidosis. Her bicarb was only 12. BUN is 41 and creatinine 4.80 however her creatinine was in the range of 1.30 just a few days ago. Obviously the patient had developed worsening renal failure, severe metabolic acidosis secondary to her renal failure, and her chest x-ray showed evidence of multiple interstitial infiltrates/edema I favor pulmonary edema since the patient is known to have history of mild LV dysfunction with ejection fraction of 45%, and now she has acute renal failure with possibly fluid overload. Underlying pneumonia is not entirely ruled out but felt to be less likely. Patient did have leukocytosis she also did have elevated BNP level, however her pro calcitonin is pending. Renal ultrasound done today, continues to show mild the left hydronephrosis similar to what she had on the last admission, and she had nonobstructive bilateral renal calculi with atrophic right kidney nephrology consultation is pending. In the meantime the patient was placed empirically on antibiotics in the form of Rocephin and Zithromax. Looking at previous urine cultures from the last admission, patient did have Enterococcus faecium/VRE positive cultures and the urine and previously she had history of ESBL Klebsiella pneumoniae infection in the urine considering this, the patient will need to be covered with daptomycin and will definitely arrange for consultation by infectious disease on the case. As the patient may have underlying urinary tract infection and urosepsis. The patient is seen today 10/04/2022 in follow-up in the intensive care unit. She is currently awake and alert. She is on BiPAP 12/5 and 60% FiO2 maintaining O2 saturations in the 90s. She is still requiring a Lasix drip currently at 5 mg per hour. Norepinephrine at 0.07 mcg/kg/m. Bicarb drip has been discontinued. Chest x-ray shows similar haziness in the left lung and right perihilar region with small bilateral pleural effusions. Cardiomegaly and suspected congestive heart failure versus pneumonia. White count 16.6. Hemoglobin 9.6. Platelet 147. Sodium 140. Potassium 3.2. Bicarb 23. BUN 40. Creatinine 3.58. Glucose 201. Pro calcitonin 4.67. ProBNP 12,000. Childress virus not detected. Urinalysis cloudy with large blood and large leukocytes HIDA be PVCs and occasional bacteria. She remains on cefepime, daptomycin, Diflucan. Continued on bronchodilators. Objective - Vital Signs Vital signs: Vital Signs Temp 97.8 F 10/04/22 07:30 Pulse 88 10/04/22 09:03 Resp 25 H 10/04/22 09:00 BP 96/51 10/04/22 09:00 Pulse Ox 94 L 10/04/22 09:24 FiO2 60 10/04/22 09:03 Intake & Output 10/03/22 10/04/22 10/04/22 18:59 06:59 18:59 Intake Total 500 1569.691 215 Output Total 1160 1500 255 Balance -660 69.691 -40 Weight 72.7 kg 76 kg Intake: IV 450 1309 15 Dextrose 5% in Water 1, 400 1200 0 000 ml @ 100 mls/hr IV . [id number] ALBERTO with Sodium Bicarb (1 Meq/ml) 150 ml Rx#:[id number] Furosemide 100 mg In 50 109 15 Sodium Chloride 0.9% 90 ml @ 5 MG/HR 5 mls/hr IV .Q20H [facility] Rx#:[id number] Intake, IV Titration 50 260.691 200 Amount Cefepime 1 gm In Sodium 100 Chloride 0.9% 50 ml @ 12. 5 mls/hr IVPB Q12HR [facility] Rx#:[id number] DAPTOmycin 500 mg In 50 Sodium Chloride 0.9% 50 ml @ 100 mls/hr IVPB Q48H [facility] Rx#:[id number] Furosemide 100 mg In 171.5 Sodium Chloride 0.9% 90 ml @ 5 MG/HR 5 mls/hr IV .Q20H [facility] Rx#:[id number] Norepinephrine 4 mg In 20.636 Sodium Chloride 0.9% 250 ml @ 0.03 MCG/KG/MIN 8.31 mls/hr IV .Q24H [facility] Rx#: [id number] Norepinephrine 8 mg In 68.555 Sodium Chloride 0.9% 250 ml @ 0.03 MCG/KG/MIN 4.22 mls/hr IV .Q24H [facility] Rx#: [id number] Potassium Chloride 20 meq 100 In Water For Injection 1 100ml.bag @ 50 mls/hr IVPB Q2H [facility] Rx#: [id number] Output: Urine 1160 1500 255 Other: Voiding Method Indwelling Catheter Indwelling Catheter ABP, PAP, CO, CI - Last Documented Arterial Blood Pressure 109/59 - Exam GENERAL EXAM: Alert, pleasant 71-year-old female on BiPAP at 60% FiO2, fairly comfortable in no apparent distress. HEAD: Normocephalic. EYES: Normal reaction of pupils, equal size. NOSE: Clear with pink turbinates. THROAT: No erythema or exudates. NECK: No masses, no JVD. CHEST: No chest wall deformity. LUNGS: Equal air entry with crackles at the bilateral bases. CVS: S1 and S2 normal with no audible murmur, regular rhythm. ABDOMEN: No hepatosplenomegaly, normal bowel sounds, no guarding or rigidity. SPINE: No scoliosis or deformity SKIN: No rashes CENTRAL NERVOUS SYSTEM: No focal deficits, tone is normal in all 4 extremities. EXTREMITIES: There is 1+ peripheral edema. No clubbing, no cyanosis. Peripheral pulses are intact. - Labs CBC & Chem 7: 10/04/22 05:00 10/04/22 05:00 Labs: Abnormal Lab Results - Last 24 Hours (Table) 10/03/22 10/03/22 10/03/22 Range/Units 10:20 10:20 10:25 WBC 22.8 H (3.8-10.6) k/uL RBC 3.53 L (3.80-5.40) m/uL Hgb 10.0 L (11.4-16.0) gm/dL Hct (34.0-46.0) % MCHC 28.3 L (31.0-37.0) g/dL RDW 22.8 H (11.5-15.5) % Plt Count (150-450) k/uL Neutrophils # 20.6 H (1.3-7.7) k/uL Lymphocytes # 0.9 L (1.0-4.8) k/uL Macrocytosis Marked A PT (9.0-12.0) sec INR (<1.2) D-Dimer (<0.60) mg/L FEU ABG pH 7.07 L* (7.35-7.45) ABG pO2 74 L (83-108) mmHg ABG HCO3 12 L (21-25) mmol/L ABG Total CO2 13 L (19-24) mmol/L ABG O2 Saturation 91.9 L (94-97) % Potassium (3.5-5.1) mmol/L Chloride (98-107) mmol/L Carbon Dioxide (22-30) mmol/L BUN (7-17) mg/dL Creatinine (0.52-1.04) mg/dL Glucose (74-99) mg/dL POC Glucose (mg/dL) 148 H (70-110) mg/dL Calcium (8.4-10.2) mg/dL Alkaline Phosphatase (38-126) U/L Total Protein (6.3-8.2) g/dL Albumin (3.5-5.0) g/dL Procalcitonin (0.02-0.09) ng/mL Urine Appearance (Clear) Urine Protein (Negative) Urine Blood (Negative) Ur Leukocyte Esterase (Negative) Urine RBC (0-5) /hpf Urine WBC (0-5) /hpf Urine Bacteria (None) /hpf 10/03/22 10/03/22 10/03/22 Range/Units 10:25 10:25 10:25 WBC (3.8-10.6) k/uL RBC (3.80-5.40) m/uL Hgb (11.4-16.0) gm/dL Hct (34.0-46.0) % MCHC (31.0-37.0) g/dL RDW (11.5-15.5) % Plt Count (150-450) k/uL Neutrophils # (1.3-7.7) k/uL Lymphocytes # (1.0-4.8) k/uL Macrocytosis PT 15.5 H (9.0-12.0) sec INR 1.6 H (<1.2) D-Dimer 0.67 H (<0.60) mg/L FEU ABG pH (7.35-7.45) ABG pO2 (83-108) mmHg ABG HCO3 (21-25) mmol/L ABG Total CO2 (19-24) mmol/L ABG O2 Saturation (94-97) % Potassium 5.3 H (3.5-5.1) mmol/L Chloride 113 H (98-107) mmol/L Carbon Dioxide 12 L (22-30) mmol/L BUN 41 H (7-17) mg/dL Creatinine 4.80 H (0.52-1.04) mg/dL Glucose 139 H (74-99) mg/dL POC Glucose (mg/dL) (70-110) mg/dL Calcium (8.4-10.2) mg/dL Alkaline Phosphatase 142 H (38-126) U/L Total Protein 4.9 L (6.3-8.2) g/dL Albumin 2.4 L (3.5-5.0) g/dL Procalcitonin 4.67 H (0.02-0.09) ng/mL Urine Appearance (Clear) Urine Protein (Negative) Urine Blood (Negative) Ur Leukocyte Esterase (Negative) Urine RBC (0-5) /hpf Urine WBC (0-5) /hpf Urine Bacteria (None) /hpf 10/03/22 10/03/22 10/03/22 Range/Units 14:15 16:10 23:20 WBC (3.8-10.6) k/uL RBC (3.80-5.40) m/uL Hgb (11.4-16.0) gm/dL Hct (34.0-46.0) % MCHC (31.0-37.0) g/dL RDW (11.5-15.5) % Plt Count (150-450) k/uL Neutrophils # (1.3-7.7) k/uL Lymphocytes # (1.0-4.8) k/uL Macrocytosis PT (9.0-12.0) sec INR (<1.2) D-Dimer (<0.60) mg/L FEU ABG pH 7.16 L* (7.35-7.45) ABG pO2 (83-108) mmHg ABG HCO3 15 L (21-25) mmol/L ABG Total CO2 16 L (19-24) mmol/L ABG O2 Saturation (94-97) % Potassium (3.5-5.1) mmol/L Chloride (98-107) mmol/L Carbon Dioxide (22-30) mmol/L BUN (7-17) mg/dL Creatinine (0.52-1.04) mg/dL Glucose (74-99) mg/dL POC Glucose (mg/dL) 122 H (70-110) mg/dL Calcium (8.4-10.2) mg/dL Alkaline Phosphatase (38-126) U/L Total Protein (6.3-8.2) g/dL Albumin (3.5-5.0) g/dL Procalcitonin (0.02-0.09) ng/mL Urine Appearance Cloudy H (Clear) Urine Protein 1+ H (Negative) Urine Blood Large H (Negative) Ur Leukocyte Esterase Large H (Negative) Urine RBC >182 H (0-5) /hpf Urine WBC 142 H (0-5) /hpf Urine Bacteria Occasional H (None) /hpf 10/04/22 10/04/22 10/04/22 Range/Units 05:00 05:00 08:59 WBC 16.6 H (3.8-10.6) k/uL RBC 3.14 L (3.80-5.40) m/uL Hgb 9.6 L (11.4-16.0) gm/dL Hct 29.9 L (34.0-46.0) % MCHC (31.0-37.0) g/dL RDW 22.9 H (11.5-15.5) % Plt Count 147 L (150-450) k/uL Neutrophils # 14.2 H (1.3-7.7) k/uL Lymphocytes # (1.0-4.8) k/uL Macrocytosis PT (9.0-12.0) sec INR (<1.2) D-Dimer (<0.60) mg/L FEU ABG pH (7.35-7.45) ABG pO2 (83-108) mmHg ABG HCO3 (21-25) mmol/L ABG Total CO2 (19-24) mmol/L ABG O2 Saturation (94-97) % Potassium 3.2 L (3.5-5.1) mmol/L Chloride (98-107) mmol/L Carbon Dioxide (22-30) mmol/L BUN 40 H (7-17) mg/dL Creatinine 3.58 H (0.52-1.04) mg/dL Glucose 201 H (74-99) mg/dL POC Glucose (mg/dL) 178 H (70-110) mg/dL Calcium 7.6 L (8.4-10.2) mg/dL Alkaline Phosphatase (38-126) U/L Total Protein (6.3-8.2) g/dL Albumin (3.5-5.0) g/dL Procalcitonin (0.02-0.09) ng/mL Urine Appearance (Clear) Urine Protein (Negative) Urine Blood (Negative) Ur Leukocyte Esterase (Negative) Urine RBC (0-5) /hpf Urine WBC (0-5) /hpf Urine Bacteria (None) /hpf Assessment and Plan Assessment: Acute hypoxic respiratory failure strongly suspect pulmonary edema, could be cardiogenic or noncardiogenic in nature. Doubt pneumonia, although is not entirely ruled out. Acute sepsis and possible septic shock, most likely source is urine Severe metabolic acidosis secondary to acute kidney injury History of chronic kidney disease stage III Benign essential hypertension Diabetic neuropathy History of bariatric surgery Plan: The patient was seen and evaluated Chest x-ray, labs and medications reviewed Lasix drip decreased to 5 mg per hour Titrate down the norepinephrine as tolerated Bicarb drip has been discontinued Titrate down the FiO2 as tolerated Heparin for DVT prophylaxis Continue bronchodilators, antibiotics We will continue to follow and make further recommendations based on her clinical status I have personally seen and examined the patient, performed the documentation and the assessment and plan as written. Number of minutes spent on the visit: 10.
[2022-10-04] MEDS: FLUCONAZOLE 100 MG TAB PO SCH (10:34)
[2022-10-04] MEDS: HEPARIN SODIUM,PORCINE/PF 5,000 UNIT/0.5 ML SYRINGE SQ SCH ×2 (10:34→21:13)
--- NOTE | 2022-10-04 10:59 | CA ---
Transthoracic Echo Report Name: Cheo Alamo Age: 71 Gender: F : 1950 Exam Date: 10/04/2022 07:51 Exam Location: [place] [facility] Ht (in): 61 Wt (lb): 160 Ordering Physician: Piter Jung DO Attending/Referring Phys: Erich Dumas;[id number] [employer] Administrator Maegan Muhammad, NIEVES Procedure CPT: Indications: dyspnea Cardiac Hx: Technical Quality: Fair Contrast 1: Total Dose (mL): Contrast 2: Total Dose (mL): MEASUREMENTS (Male / Female) Normal Values 2D ECHO LV Diastolic Diameter PLAX 2.7 cm 4.2 - 5.9 / 3.9 - 5.3 cm LV Systolic Diameter PLAX 1.9 cm IVS Diastolic Thickness 1.4 cm 0.6 - 1.0 / 0.6 - 0.9 cm LVPW Diastolic Thickness 1.3 cm 0.6 - 1.0 / 0.6 - 0.9 cm LV Relative Wall Thickness 1.0 RV Internal Dim ED PLAX 4.0 cm LA Systolic Diameter LX 2.9 cm 3.0 - 4.0 / 2.7 - 3.8 cm M-MODE Aortic Root Diameter MM 3.3 cm AV Cusp Separation MM 2.4 cm DOPPLER AV Peak Velocity 92.6 cm/s AV Peak Gradient 3.4 mmHg MV Area PHT 3.0 cm??? Mitral E Point Velocity 51.4 cm/s Mitral A Point Velocity 65.4 cm/s Mitral E to A Ratio 0.8 MV Deceleration Time 249.7 ms TR Peak Velocity 331.5 cm/s TR Peak Gradient 44.0 mmHg Right Ventricular Systolic Press 48.0 mmHg FINDINGS Left Ventricle Left ventricular ejection fraction is estimated at 55-60 %. Moderately left ventricular hypertrophy.normal left ventricular wall motion. Left ventricular cavity size normal. Right Ventricle Moderate right ventricular dilatation. Moderate pulmonary hypertension.reduced right ventricular global systolic function. Right Atrium Normal right atrial size. Left Atrium Normal left atrial size. Mitral Valve Structurally normal mitral valve. No mitral stenosis, or prolapse.mild mitral regurgitation. Aortic Valve Trileaflet aortic valve. Thickened aortic valve without stenosis. Tricuspid Valve Structurally normal tricuspid valve. Mild tricuspid regurgitation. Pulmonic Valve Structurally normal pulmonic valve. Trace pulmonic regurgitation. Pericardium Normal pericardium. No pericardial effusion. Aorta Normal size aortic root and proximal ascending aorta. CONCLUSIONS 1. Normal left ventricular size and systolic function with LVH 2. Mild mitral and tricuspid regurgitation 3. Dilated right ventricle with mild pulmonary hypertension Previewed by: Dr. Brad Bermudez MD (Electronically Signed) Final Date: 04 October 2022 10:58
[2022-10-04 11:43] LABS: Glucose,Whole Blood 179 mg/dL (70-110)
--- NOTE | 2022-10-04 12:11 | P.PN ---
Subjective Patient is seen in follow-up for acute kidney injury on chronic kidney disease. Renal function better. Bicarb drip discontinued this morning. Currently on a stricture per 5 mL an hour. On Levophed. Currently receiving a breathing treatment. Denies chest pain or shortness of breath. Vital signs are stable. Blood pressure low. On vasopressor support. General: No acute distress. HEENT: Head exam is unremarkable. On nasal cannula. LUNGS: Scattered rhonchi. HEART: Rate and Rhythm are regular. ABDOMEN: Nontender. EXTREMITITES: 2+ edema. Objective - Vital Signs Vital signs: Vital Signs Temp 97.8 F 10/04/22 07:30 Pulse 87 10/04/22 11:50 Resp 22 10/04/22 11:50 BP 83/62 10/04/22 11:00 Pulse Ox 93 L 10/04/22 11:00 FiO2 60 10/04/22 09:03 Intake & Output 10/03/22 10/04/22 10/04/22 18:59 06:59 18:59 Intake Total 500 1569.691 259.890 Output Total 1160 1500 330 Balance -660 69.691 -70.110 Weight 72.7 kg 76 kg Intake: IV 450 1309 25 Dextrose 5% in Water 1, 400 1200 0 000 ml @ 100 mls/hr IV . [id number] ALBERTO with Sodium Bicarb (1 Meq/ml) 150 ml Rx#:[id number] Furosemide 100 mg In 50 109 25 Sodium Chloride 0.9% 90 ml @ 5 MG/HR 5 mls/hr IV .Q20H ALBERTO Rx#:[id number] Intake, IV Titration 50 260.691 234.890 Amount Cefepime 1 gm In Sodium 100 Chloride 0.9% 50 ml @ 12. 5 mls/hr IVPB Q12HR ALBERTO Rx#:[id number] DAPTOmycin 500 mg In 50 Sodium Chloride 0.9% 50 ml @ 100 mls/hr IVPB Q48H ALBERTO Rx#:[id number] Furosemide 100 mg In 171.5 Sodium Chloride 0.9% 90 ml @ 5 MG/HR 5 mls/hr IV .Q20H ALBERTO Rx#:[id number] Norepinephrine 4 mg In 20.636 Sodium Chloride 0.9% 250 ml @ 0.03 MCG/KG/MIN 8.31 mls/hr IV .Q24H ONE Rx#: [id number] Norepinephrine 8 mg In 68.555 34.890 Sodium Chloride 0.9% 250 ml @ 0.03 MCG/KG/MIN 4.22 mls/hr IV .Q24H [facility] Rx#: [id number] Potassium Chloride 20 meq 100 In Water For Injection 1 100ml.bag @ 50 mls/hr IVPB Q2H [facility] Rx#: [id number] Output: Urine 1160 1500 330 Other: Voiding Method Indwelling Catheter Indwelling Catheter Indwelling Catheter ABP, PAP, CO, CI - Last Documented Arterial Blood Pressure 126/53 - Labs CBC & Chem 7: 10/04/22 05:00 10/04/22 05:00 Labs: Abnormal Lab Results - Last 24 Hours (Table) 10/03/22 10/03/22 10/03/22 Range/Units 10:25 14:15 16:10 WBC (3.8-10.6) k/uL RBC (3.80-5.40) m/uL Hgb (11.4-16.0) gm/dL Hct (34.0-46.0) % RDW (11.5-15.5) % Plt Count (150-450) k/uL Neutrophils # (1.3-7.7) k/uL ABG pH 7.16 L* (7.35-7.45) ABG HCO3 15 L (21-25) mmol/L ABG Total CO2 16 L (19-24) mmol/L Potassium (3.5-5.1) mmol/L BUN (7-17) mg/dL Creatinine (0.52-1.04) mg/dL Glucose (74-99) mg/dL POC Glucose (mg/dL) 122 H (70-110) mg/dL Calcium (8.4-10.2) mg/dL Procalcitonin 4.67 H (0.02-0.09) ng/mL Urine Appearance (Clear) Urine Protein (Negative) Urine Blood (Negative) Ur Leukocyte Esterase (Negative) Urine RBC (0-5) /hpf Urine WBC (0-5) /hpf Urine Bacteria (None) /hpf 10/03/22 10/04/22 10/04/22 Range/Units 23:20 05:00 05:00 WBC 16.6 H (3.8-10.6) k/uL RBC 3.14 L (3.80-5.40) m/uL Hgb 9.6 L (11.4-16.0) gm/dL Hct 29.9 L (34.0-46.0) % RDW 22.9 H (11.5-15.5) % Plt Count 147 L (150-450) k/uL Neutrophils # 14.2 H (1.3-7.7) k/uL ABG pH (7.35-7.45) ABG HCO3 (21-25) mmol/L ABG Total CO2 (19-24) mmol/L Potassium 3.2 L (3.5-5.1) mmol/L BUN 40 H (7-17) mg/dL Creatinine 3.58 H (0.52-1.04) mg/dL Glucose 201 H (74-99) mg/dL POC Glucose (mg/dL) (70-110) mg/dL Calcium 7.6 L (8.4-10.2) mg/dL Procalcitonin (0.02-0.09) ng/mL Urine Appearance Cloudy H (Clear) Urine Protein 1+ H (Negative) Urine Blood Large H (Negative) Ur Leukocyte Esterase Large H (Negative) Urine RBC >182 H (0-5) /hpf Urine WBC 142 H (0-5) /hpf Urine Bacteria Occasional H (None) /hpf 10/04/22 10/04/22 Range/Units 08:59 11:42 WBC (3.8-10.6) k/uL RBC (3.80-5.40) m/uL Hgb (11.4-16.0) gm/dL Hct (34.0-46.0) % RDW (11.5-15.5) % Plt Count (150-450) k/uL Neutrophils # (1.3-7.7) k/uL ABG pH (7.35-7.45) ABG HCO3 (21-25) mmol/L ABG Total CO2 (19-24) mmol/L Potassium (3.5-5.1) mmol/L BUN (7-17) mg/dL Creatinine (0.52-1.04) mg/dL Glucose (74-99) mg/dL POC Glucose (mg/dL) 178 H 179 H (70-110) mg/dL Calcium (8.4-10.2) mg/dL Procalcitonin (0.02-0.09) ng/mL Urine Appearance (Clear) Urine Protein (Negative) Urine Blood (Negative) Ur Leukocyte Esterase (Negative) Urine RBC (0-5) /hpf Urine WBC (0-5) /hpf Urine Bacteria (None) /hpf Assessment and Plan Plan: Assessment: 1. Acute kidney injury secondary to ATN secondary to cardiorenal syndrome. Creatinine 4.8 on admission and is 3.58 today. 2. Chronic kidney disease stage III with baseline creatinine 1.1-1.3 secondary to obstructive uropathy. 3. Hypokalemia from diuresis and cellular shifting from IV bicarb. Replaced. 4. Metabolic acidosis secondary to acute kidney injury improved and bicarb drip. 5. Acute hypoxic respiratory failure. 6. Volume overload. 7. Shock maintained on Levophed. ?septic. Plan: Maintain Lasix drip. Krishnamurthy catheter to be irrigated. If urine output remains low, will increase Lasix drip to 10 mL an hour. Wean vasopressors. Avoid nephrotoxins. Continue to monitor renal function and urine output.
[2022-10-04] MEDS ORDERED: AMIODARONE 360 MG in DEXTROSE 5% IN WATER 200 ML IV ONE ×2 (14:37)
[2022-10-04] MEDS ORDERED: DEXTROSE 5% IN WATER 100 ML with AMIODARONE 150 MG IV ONE (14:37)
[2022-10-04 17:56] LABS: Glucose,Whole Blood 177 mg/dL (70-110)
[2022-10-04] MEDS: APIXABAN 2.5 MG TABLET PO SCH (21:13)
[2022-10-04 21:23] LABS: Glucose,Whole Blood 188 mg/dL (70-110)
[2022-10-04] MEDS: AMIODARONE 450 MG in DEXTROSE 5% IN WATER 250 ML IV SCH ×2 (22:13)
--- NOTE | 2022-10-04 22:44 | CONS ---
CONSULTATION HISTORY OF PRESENT ILLNESS: This is a 71-year-old lady with multiple medical problems including type 2 diabetes, hypertension, diabetic neuropathy, and COPD. She was recently in the hospital with nephrolithiasis, was discharged after being seen by Urology and she comes back with shortness of breath, mental status changes, and was in respiratory distress, confused, placed on a BiPAP. Her initial bicarb was only 12. She had acute on chronic renal failure with acute kidney injury, has been placed on a Lasix drip and BiPAP, she has improved. Creatinine has shown a downward trend. The patient also developed some metabolic acidosis which is significant. There are multiple infiltrates and it looks more like a congestive heart failure type picture with underlying ejection fraction of 45% based on a previous echo. We are probably dealing more with a volume overload type picture rather than a primary LV dysfunction in this lady. However, with metabolic acidosis, LV function also can get worse and compromise the systolic function as well. However, we are dealing with probably urinary tract infection if not urosepsis and exacerbation of COPD in addition to volume overload and some systolic heart failure. However, the patient is making progress, creatinine is getting better, her breathing has improved. She did well on BiPAP. Her laboratory data suggests that her potassium has also improved, creatinine has shown modest improvement. Hemoglobin is about 9.6. White count has also shown a downward trend. Please refer to the recent notes in the chart. The patient will have an echocardiogram performed today. PAST MEDICAL HISTORY: Significant for the problems mentioned above in the form of nephrolithiasis, mild hydronephrosis COPD, and also diabetes hypertension with neuropathy. PHYSICAL EXAMINATION: VITAL SIGNS: Blood pressure is 108/70, pulse rate is 84 a minute, appears to be sinus. HEENT: Limited examination is unremarkable. The patient is on a BiPAP. HEART: S1, S2 heard normally with a short systolic murmur. LUNGS: Reveal fair air entry. ABDOMEN: Soft. EXTREMITIES: Lower extremities reveal diminished pulses, trace edema. CENTRAL NERVOUS SYSTEM: Grossly within normal limits. IMPRESSION: 1. Acute on chronic renal injury with severe metabolic acidosis. 2. Congestive heart failure, probably related to volume overload and some metabolic acidosis related systolic dysfunction. 3. Hypertension. 4. Diabetes. 5. History of COPD with exacerbation. 6. Possible urosepsis. RECOMMENDATIONS: I would recommend that we continue current supportive care. No aggressive intervention. I will await the findings on echocardiogram. I suspect LV systolic function will be in the normal range for this patient. She may have also significant, if not moderate, pulmonary hypertension as well. Overall prognosis remains guarded. We will continue Lasix drip and supportive care. ROSE / TERRY: [id number] /
--- NOTE | 2022-10-05 00:01 | P.PN ---
Subjective This is a pleasant 71 years old female with multiple medical problems including Diabetes Mellitus, Hypertension, NEUROPATHY, MIGRAINES, fractured right shoulder,s/p Bariatric Surgery, Bladder Surgery, Hysterectomy, COPD altered mentation and respiratorty distress. The pt was found by the pts this morning in her recliner chair with belly breathing and difficult to arouse. Patient currently on BiPAP machine but she can answer some questions although she looks tired and lethargic. Patient says she's been feeling short of breath for the last 2-3 days with no chest pain or coughing. Was progressively getting worse. Patient basically denies other symptoms like no headache dizziness weakness or numbness. No abdominal pain vomiting or diarrhea. No urinary complaints. SHE admits to some vaginal discharge for 3 days. On admission she was tachypneic about 40/m, blood pressure 95/56. Patient is afebrile Also patient with leukocytosis 22.8, hemoglobin 10. Platelet count within the reference range INR 1.6. D-dimer 0.67. Arterial pH is low 7.0. PO2 74. CO2 within the reference range at 42. Potassium 5.3. Creatinine elevated 4.8, with a baseline 1.3-1.4 liver enzymes and bilirubin unremarkable. ProBNP 12,000. Troponin negative. Childress v is not detected EKG: Normal sinus rhythm at [address]-T changes. Chest x-ray: Haziness within the left upper lung and right perihilar regions correlate with serum BNP 4 congestive heart failure and for a new pneumonia. I reviewed chest x-ray by myself also the suspicion of pleural effusion On admission patient was started on 10/04/2022 pt remains in the icu in critical condition but showing signs of improvement her resp rate decreased from 33 down to (25-27),her oxygen requirement went down from 15 to 10 l/m her creatinine is down to 2.5 from 4.8 leukocytosis is improving 22 down to 16k however her prognosis remains guarded several integrity consultant on the case including pulmonary and critical care team horticultural nursery assistant and biztalk administrator and ID team she is on levophed, Lasix drip at 5 mg/hr, daptomycin, cefepime and diflucan , also pt was started on eliquis and amiodarone drip by cardiology team Active Medications Generic Name Dose Route Start Last Admin Trade Name Freq PRN Reason Stop Dose Admin Albuterol/Ipratropium 3 ml 10/03/22 12:00 10/04/22 19:57 Ipratropium-Albuterol 3 Ml Neb INHALATION 3 ml RT-QID ALBERTO Administration Albuterol/Ipratropium 3 ml 10/03/22 11:18 Ipratropium-Albuterol 3 Ml Neb INHALATION RT-Q4H PRN shortness of breath Apixaban 2.5 mg 10/04/22 21:00 10/04/22 21:13 Apixaban 2.5 Mg Tablet PO 2.5 mg BID ALBERTO Administration Protocol Famotidine 20 mg 10/03/22 21:00 10/04/22 21:13 Famotidine 20 Mg/2 Ml Vial IV 20 mg HS ALBERTO Administration Fluconazole 100 mg 10/03/22 16:00 10/04/22 10:34 Fluconazole 100 Mg Tab PO 100 mg DAILY ALBERTO Administration Protocol Heparin Sodium (Porcine) 5,000 unit 10/04/22 10:15 10/04/22 21:13 Heparin Sodium,Porcine/Pf 5,000 Unit/0.5 Ml Syringe SQ 5,000 unit Q12HR ALBERTO Administration Hydromorphone HCl 0.5 mg 10/03/22 14:47 10/04/22 23:43 Hydromorphone 0.5 Mg/0.5 Ml Syringe IVP 0.5 mg Q3HR PRN Administration Pain Furosemide 100 mg/ Sodium 100 mls @ 5 mls/hr 10/03/22 11:30 10/04/22 07:05 Chloride IV 5 mg/hr .Q20H ALBERTO 5 mls/hr Administration 5 MG/HR Daptomycin 500 mg/ Sodium 50 mls @ 100 mls/hr 10/03/22 16:00 10/03/22 16:35 Chloride IVPB 100 mls/hr Q48H ALBERTO Administration Protocol Norepinephrine Bitartrate 8 mg 258 mls @ 4.22 mls/hr 10/03/22 22:00 10/04/22 22:03 / Sodium Chloride IV 0.12 mcg/kg/min .Q24H ALBERTO 16.881 mls/hr Administration Protocol 0.03 MCG/KG/MIN Cefepime HCl 1 gm/ Sodium 50 mls @ 12.5 mls/hr 10/03/22 23:15 10/04/22 21:13 Chloride IVPB 12.5 mls/hr Q12HR ALBERTO Administration Protocol Amiodarone HCl 450 mg/ 250 mls @ 16.667 mls/hr 10/04/22 20:36 10/04/22 22:13 Dextrose/Water IV 10/05/22 14:35 0.5 mg/min .Q15H ALBERTO 16.667 mls/hr Administration Protocol 0.5 MG/MIN Miscellaneous Information 1 each 10/03/22 11:18 Pneumonia Protocol Utilized 1 Each Misc PO ONCE PRN Per Protocol Naloxone HCl 0.2 mg 10/03/22 14:19 Naloxone 0.4 Mg/Ml 1 Ml Vial IV Q2M PRN Opioid Reversal Pantoprazole Sodium 40 mg 10/04/22 09:00 10/04/22 08:41 Pantoprazole 40 Mg/10 Ml Vial IV 40 mg DAILY ALBERTO Administration Objective - Vital Signs Vital signs: Vital Signs Temp 97.8 F 10/04/22 07:30 Pulse 87 10/04/22 11:50 Resp 22 10/04/22 11:50 BP 83/62 10/04/22 11:00 Pulse Ox 93 L 10/04/22 11:00 FiO2 60 10/04/22 09:03 Intake & Output 10/03/22 10/04/22 10/04/22 18:59 06:59 18:59 Intake Total 500 1569.691 259.890 Output Total 1160 1500 330 Balance -660 69.691 -70.110 Weight 72.7 kg 76 kg Intake: IV 450 1309 25 Dextrose 5% in Water 1, 400 1200 0 000 ml @ 100 mls/hr IV . [id number] ALBERTO with Sodium Bicarb (1 Meq/ml) 150 ml Rx#:[id number] Furosemide 100 mg In 50 109 25 Sodium Chloride 0.9% 90 ml @ 5 MG/HR 5 mls/hr IV .Q20H ALBERTO Rx#:[id number] Intake, IV Titration 50 260.691 234.890 Amount Cefepime 1 gm In Sodium 100 Chloride 0.9% 50 ml @ 12. 5 mls/hr IVPB Q12HR ALBERTO Rx#:[id number] DAPTOmycin 500 mg In 50 Sodium Chloride 0.9% 50 ml @ 100 mls/hr IVPB Q48H ALBERTO Rx#:[id number] Furosemide 100 mg In 171.5 Sodium Chloride 0.9% 90 ml @ 5 MG/HR 5 mls/hr IV .Q20H [facility] Rx#:[id number] Norepinephrine 4 mg In 20.636 Sodium Chloride 0.9% 250 ml @ 0.03 MCG/KG/MIN 8.31 mls/hr IV .Q24H ONE Rx#: [id number] Norepinephrine 8 mg In 68.555 34.890 Sodium Chloride 0.9% 250 ml @ 0.03 MCG/KG/MIN 4.22 mls/hr IV .Q24H [facility] Rx#: [id number] Potassium Chloride 20 meq 100 In Water For Injection 1 100ml.bag @ 50 mls/hr IVPB Q2H [facility] Rx#: [id number] Output: Urine 1160 1500 330 Other: Voiding Method Indwelling Catheter Indwelling Catheter Indwelling Catheter ABP, PAP, CO, CI - Last Documented Arterial Blood Pressure 126/53 - Exam -GENERAL: The patient is alert and oriented x3, in moderate acute respiratory distress. Well developed, well nourished. HEENT: Pupils are round and equally reacting to light. EOMI. No scleral icterus. No conjunctival pallor. Normocephalic, atraumatic. No pharyngeal erythema. No thyromegaly. CARDIOVASCULAR: S1 and S2 present. No murmurs, rubs, or gallops. -PULMONARY: Chest is clear to auscultation, no wheezing , no crackles. Decreased air entry especially abdomen lung bases, tachypnea ABDOMEN: Soft, nontender, nondistended, normoactive bowel sounds. No palpable organomegaly. MUSCULOSKELETAL: No joint swelling or deformity. -EXTREMITIES: No cyanosis, clubbing, or bilateral extremity edema NEUROLOGICAL: Gross neurological examination did not reveal any focal deficits. SKIN: No rashes. no petechiae. - Labs CBC & Chem 7: 10/04/22 05:00 10/04/22 16:18 Labs: Abnormal Lab Results - Last 24 Hours (Table) 10/03/22 10/03/22 10/03/22 Range/Units 10:25 14:15 16:10 WBC (3.8-10.6) k/uL RBC (3.80-5.40) m/uL Hgb (11.4-16.0) gm/dL Hct (34.0-46.0) % RDW (11.5-15.5) % Plt Count (150-450) k/uL Neutrophils # (1.3-7.7) k/uL ABG pH 7.16 L* (7.35-7.45) ABG HCO3 15 L (21-25) mmol/L ABG Total CO2 16 L (19-24) mmol/L Potassium (3.5-5.1) mmol/L BUN (7-17) mg/dL Creatinine (0.52-1.04) mg/dL Glucose (74-99) mg/dL POC Glucose (mg/dL) 122 H (70-110) mg/dL Calcium (8.4-10.2) mg/dL Procalcitonin 4.67 H (0.02-0.09) ng/mL Urine Appearance (Clear) Urine Protein (Negative) Urine Blood (Negative) Ur Leukocyte Esterase (Negative) Urine RBC (0-5) /hpf Urine WBC (0-5) /hpf Urine Bacteria (None) /hpf 10/03/22 10/04/22 10/04/22 Range/Units 23:20 05:00 05:00 WBC 16.6 H (3.8-10.6) k/uL RBC 3.14 L (3.80-5.40) m/uL Hgb 9.6 L (11.4-16.0) gm/dL Hct 29.9 L (34.0-46.0) % RDW 22.9 H (11.5-15.5) % Plt Count 147 L (150-450) k/uL Neutrophils # 14.2 H (1.3-7.7) k/uL ABG pH (7.35-7.45) ABG HCO3 (21-25) mmol/L ABG Total CO2 (19-24) mmol/L Potassium 3.2 L (3.5-5.1) mmol/L BUN 40 H (7-17) mg/dL Creatinine 3.58 H (0.52-1.04) mg/dL Glucose 201 H (74-99) mg/dL POC Glucose (mg/dL) (70-110) mg/dL Calcium 7.6 L (8.4-10.2) mg/dL Procalcitonin (0.02-0.09) ng/mL Urine Appearance Cloudy H (Clear) Urine Protein 1+ H (Negative) Urine Blood Large H (Negative) Ur Leukocyte Esterase Large H (Negative) Urine RBC >182 H (0-5) /hpf Urine WBC 142 H (0-5) /hpf Urine Bacteria Occasional H (None) /hpf 10/04/22 10/04/22 Range/Units 08:59 11:42 WBC (3.8-10.6) k/uL RBC (3.80-5.40) m/uL Hgb (11.4-16.0) gm/dL Hct (34.0-46.0) % RDW (11.5-15.5) % Plt Count (150-450) k/uL Neutrophils # (1.3-7.7) k/uL ABG pH (7.35-7.45) ABG HCO3 (21-25) mmol/L ABG Total CO2 (19-24) mmol/L Potassium (3.5-5.1) mmol/L BUN (7-17) mg/dL Creatinine (0.52-1.04) mg/dL Glucose (74-99) mg/dL POC Glucose (mg/dL) 178 H 179 H (70-110) mg/dL Calcium (8.4-10.2) mg/dL Procalcitonin (0.02-0.09) ng/mL Urine Appearance (Clear) Urine Protein (Negative) Urine Blood (Negative) Ur Leukocyte Esterase (Negative) Urine RBC (0-5) /hpf Urine WBC (0-5) /hpf Urine Bacteria (None) /hpf Assessment and Plan Assessment: acute congestive heart failure ,diastolic with ef 55-60% acute UTI, and possible pna as well Hypotension and shock , both cardiogenic and septic Acute hypoxic respiratory failure Severe metabolic acidosis Acute kidney injury on chronic kidney disease stage III Diabetes mellitus Hypertension History of neuropathy and migraine History of bariatric surgery Obesity with BMI of 30.3 Plan: Continue with antibiotics daptomycin , cefepime, and diflucan. Follow-up culture results. Continue with oxygen and BiPAP as needed. Patient on lasix drip continue the pressors levophed Symptomatic vaginal swab several consultants on the case pulmonary and critical care, biztalk administrator, ID, Tube Puller Labs and medication were reviewed.. Continue same treatment. Continue with symptomatic treatment. Resume home medication. Monitor labs and vitals. DVT and GI prophylaxis. Further recommendations as per clinical course of the patient DVT prophylaxis:Eliquis GI Prophylaxis: Ppi Prognosis is guarded
[2022-10-05] MEDS: FUROSEMIDE 100 MG in SODIUM CHLORIDE 0.9% 90 ML IV SCH ×2 (03:21→20:10)
[2022-10-05 05:19] LABS: Anisocytosis Moderate; Basophils % (A) 0 %; Eosinophils % (A) 0 %; HCT 30.4 % (34.0-46.0); HGB 9.3 gm/dL (11.4-16.0); Hypochromasia Marked; Lymphocytes # (A) 1.7 k/uL (1.0-4.8); Lymphocytes % (A) 11 %; MCH 29.3 pg (25.0-35.0); MCHC 30.7 g/dL (31.0-37.0); MCV 95.4 fL (80.0-100.0); Macrocytosis Moderate; Mean Platelet Volume 8.9; Monocytes # (A) 0.4 k/uL (0-1.0); Monocytes % (A) 3 %; Neutrophils # (A) 13.3 k/uL (1.3-7.7); Neutrophils % (A) 84 %; Platelet Count 146 k/uL (150-450); Poikilocytosis Slight; RBC 3.18 m/uL (3.80-5.40); RDW 23.5 % (11.5-15.5); WBC 15.8 k/uL (3.8-10.6)
[2022-10-05 05:29] LABS: African American GFR (CKD) 18 (>60 ml/min/1.73 sqM); Anion Gap 9 mmol/L; Blood Urea Nitrogen 41 mg/dL (7-17); Calcium 7.4 mg/dL (8.4-10.2); Carbon Dioxide 23 mmol/L (22-30); Chloride 106 mmol/L (98-107); Glucose 136 mg/dL (74-99); Non-African American GFR(CKD) 16 (>60 ml/min/1.73 sqM); Potassium 3.9 mmol/L (3.5-5.1); Sodium 138 mmol/L (137-145)
--- NOTE | 2022-10-05 06:46 | XR ---
EXAMINATION TYPE: XR chest 1V portable DATE OF EXAM: 10/05/2022 HISTORY: Shortness of breath. COMPARISON: 10/04/2022 TECHNIQUE: Single view of the chest is submitted. FINDINGS: Demonstrated are scattered senescent parenchymal change. Patchy perihilar and basilar infiltrates persist without significant change. Small pleural effusions noted as well. The heart is stable. Hilar and mediastinal structures are within normal limits. Degenerative changes are seen of the dorsal spine. IMPRESSION: 1. Patchy perihilar and basilar infiltrates persist without significant change. Small pleural effusi ons noted as well.
--- NOTE | 2022-10-05 07:01 | P.PN ---
Subjective Progress Note Date: 10/04/22 Principal diagnosis: Sepsis and UTI Patient is a 71-year-old female with a past medical history negative for recurrent urinary tract infection, presented to hospital with weakness and mental status changes and respiratory distress patient was found to be septic likely from urinary source and admitted to ICU requiring BiPAP. On today's evaluation that is 10/03/2022, the patient is afebrile patient is more awake and alert today and is currently off the BiPAP patient is requiring low-dose pressor support to maintain her blood pressure patient denies having any chest pain did have mild coughimproved no abdominal pain no diarrhea Objective - Vital Signs Vital signs: Vital Signs Temp 97.4 F L 10/04/22 12:00 Pulse 88 10/04/22 12:01 Resp 22 10/04/22 12:01 BP 97/56 10/04/22 12:00 Pulse Ox 98 10/04/22 12:00 FiO2 60 10/04/22 12:00 Intake & Output 10/03/22 10/04/22 10/04/22 18:59 06:59 18:59 Intake Total 500 1569.691 264.890 Output Total 1160 1500 405 Balance -660 69.691 -140.110 Weight 72.7 kg 76 kg Intake: IV 450 1309 30 Dextrose 5% in Water 1, 400 1200 0 000 ml @ 100 mls/hr IV . [id number] [facility] with Sodium Bicarb (1 Meq/ml) 150 ml Rx#:[id number] Furosemide 100 mg In 50 109 30 Sodium Chloride 0.9% 90 ml @ 5 MG/HR 5 mls/hr IV .Q20H [facility] Rx#:[id number] Intake, IV Titration 50 260.691 234.890 Amount Cefepime 1 gm In Sodium 100 Chloride 0.9% 50 ml @ 12. 5 mls/hr IVPB Q12HR [facility] Rx#:[id number] DAPTOmycin 500 mg In 50 Sodium Chloride 0.9% 50 ml @ 100 mls/hr IVPB Q48H [facility] Rx#:[id number] Furosemide 100 mg In 171.5 Sodium Chloride 0.9% 90 ml @ 5 MG/HR 5 mls/hr IV .Q20H [facility] Rx#:[id number] Norepinephrine 4 mg In 20.636 Sodium Chloride 0.9% 250 ml @ 0.03 MCG/KG/MIN 8.31 mls/hr IV .Q24H [facility] Rx#: [id number] Norepinephrine 8 mg In 68.555 34.890 Sodium Chloride 0.9% 250 ml @ 0.03 MCG/KG/MIN 4.22 mls/hr IV .Q24H [facility] Rx#: [id number] Potassium Chloride 20 meq 100 In Water For Injection 1 100ml.bag @ 50 mls/hr IVPB Q2H [facility] Rx#: [id number] Output: Urine 1160 1500 405 Other: Voiding Method Indwelling Catheter Indwelling Catheter Indwelling Catheter ABP, PAP, CO, CI - Last Documented Arterial Blood Pressure 127/50 - Exam GENERAL DESCRIPTION: An elderly female lying in bed in no distress RESPIRATORY SYSTEM: Unlabored breathing , decreased breath sounds at bases HEART: S1 S2 regular rate and rhythm , ABDOMEN: Soft , no tenderness EXTREMITIES: No edema feet - Labs CBC & Chem 7: 10/05/22 04:45 10/05/22 04:45 Labs: Abnormal Lab Results - Last 24 Hours (Table) 10/03/22 10/03/22 10/03/22 Range/Units 10:25 14:15 16:10 WBC (3.8-10.6) k/uL RBC (3.80-5.40) m/uL Hgb (11.4-16.0) gm/dL Hct (34.0-46.0) % RDW (11.5-15.5) % Plt Count (150-450) k/uL Neutrophils # (1.3-7.7) k/uL ABG pH 7.16 L* (7.35-7.45) ABG HCO3 15 L (21-25) mmol/L ABG Total CO2 16 L (19-24) mmol/L Potassium (3.5-5.1) mmol/L BUN (7-17) mg/dL Creatinine (0.52-1.04) mg/dL Glucose (74-99) mg/dL POC Glucose (mg/dL) 122 H (70-110) mg/dL Calcium (8.4-10.2) mg/dL Procalcitonin 4.67 H (0.02-0.09) ng/mL Urine Appearance (Clear) Urine Protein (Negative) Urine Blood (Negative) Ur Leukocyte Esterase (Negative) Urine RBC (0-5) /hpf Urine WBC (0-5) /hpf Urine Bacteria (None) /hpf 10/03/22 10/04/22 10/04/22 Range/Units 23:20 05:00 05:00 WBC 16.6 H (3.8-10.6) k/uL RBC 3.14 L (3.80-5.40) m/uL Hgb 9.6 L (11.4-16.0) gm/dL Hct 29.9 L (34.0-46.0) % RDW 22.9 H (11.5-15.5) % Plt Count 147 L (150-450) k/uL Neutrophils # 14.2 H (1.3-7.7) k/uL ABG pH (7.35-7.45) ABG HCO3 (21-25) mmol/L ABG Total CO2 (19-24) mmol/L Potassium 3.2 L (3.5-5.1) mmol/L BUN 40 H (7-17) mg/dL Creatinine 3.58 H (0.52-1.04) mg/dL Glucose 201 H (74-99) mg/dL POC Glucose (mg/dL) (70-110) mg/dL Calcium 7.6 L (8.4-10.2) mg/dL Procalcitonin (0.02-0.09) ng/mL Urine Appearance Cloudy H (Clear) Urine Protein 1+ H (Negative) Urine Blood Large H (Negative) Ur Leukocyte Esterase Large H (Negative) Urine RBC >182 H (0-5) /hpf Urine WBC 142 H (0-5) /hpf Urine Bacteria Occasional H (None) /hpf 10/04/22 10/04/22 Range/Units 08:59 11:42 WBC (3.8-10.6) k/uL RBC (3.80-5.40) m/uL Hgb (11.4-16.0) gm/dL Hct (34.0-46.0) % RDW (11.5-15.5) % Plt Count (150-450) k/uL Neutrophils # (1.3-7.7) k/uL ABG pH (7.35-7.45) ABG HCO3 (21-25) mmol/L ABG Total CO2 (19-24) mmol/L Potassium (3.5-5.1) mmol/L BUN (7-17) mg/dL Creatinine (0.52-1.04) mg/dL Glucose (74-99) mg/dL POC Glucose (mg/dL) 178 H 179 H (70-110) mg/dL Calcium (8.4-10.2) mg/dL Procalcitonin (0.02-0.09) ng/mL Urine Appearance (Clear) Urine Protein (Negative) Urine Blood (Negative) Ur Leukocyte Esterase (Negative) Urine RBC (0-5) /hpf Urine WBC (0-5) /hpf Urine Bacteria (None) /hpf Assessment and Plan (1) Sepsis Current Visit: No Status: Acute Code(s): A41.9 - SEPSIS, UNSPECIFIED ORGANISM SNOMED Code(s): 03369425 (2) UTI (urinary tract infection) Current Visit: No Status: Acute Code(s): N39.0 - URINARY TRACT INFECTION, S ITE NOT SPECIFIED SNOMED Code(s): 49618864 Plan: 1patient was in the hospital with sepsis in this patient noticed to be hypothermic tachypneic mild hypotension and elevated white count source is multifactorial concerning for UTI with recent urine culture positive for VRE plus minus a component of pneumonia with significant respiratory symptoms 2-patient with multiple antibiotic allergies and renal insufficiency that would limit the number of antibiotics safe to use 3Patient did have procalcitonin level of 4.67 5-patient to continue with the daptomycin and cefepime while waiting for the consult to finalize 6-patient also have extensive vaginal yeast infection continue with Diflucan Dictation was produced using [employer] dictation software. please excuse any grammatical, word or spelling errors.
[2022-10-05] MEDS: IPRATROPIUM-ALBUTEROL 3 ML NEB INHALATION SCH ×4 (08:07→20:01)
[2022-10-05] MEDS: HYDROmorphone 0.5 MG/0.5 ML SYRINGE IVP PRN ×2 (08:32→18:21)
[2022-10-05] MEDS: APIXABAN 2.5 MG TABLET PO SCH ×2 (08:35→21:02)
[2022-10-05] MEDS: CEFEPIME 1 GM in SODIUM CHLORIDE 0.9% 50 ML IVPB SCH ×2 (08:35→21:56)
[2022-10-05] MEDS: PANTOPRAZOLE 40 MG/10 ML VIAL IV SCH (08:36)
[2022-10-05] MEDS: FLUCONAZOLE 100 MG TAB PO SCH (08:36)
--- NOTE | 2022-10-05 08:59 | P.PN ---
Subjective Progress Note Date: 10/05/22 This is a 71-year-old female with history of multiple medical problems including type 2 diabetes, hypertension, diabetic neuropathy, migraine cephalgia, COPD, patient was recently in the hospital with nephrolithiasis, and hydronephrosis. She was seen by urology on consultation, and no surgical intervention was felt to be necessary for her nephrolithiasis or mild hydronephrosis. Patient was treated conservatively, she was discharged home on the . Patient was brought into the ER today complaining of shortness of breath and mental status change. Apparently upon arrival to the ER, the patient was in respiratory distress, she was also confused, patient was placed on BiPAP. Her initial ABG on arrival showed a pO2 of 74 pCO2 42 pH of 7.07 consistent with severe metabolic acidosis. Her bicarb was only 12. BUN is 41 and creatinine 4.80 however her creatinine was in the range of 1.30 just a few days ago. Obviously the patient had developed worsening renal failure, severe metabolic acidosis secondary to her renal failure, and her chest x-ray showed evidence of multiple interstitial infiltrates/edema I favor pulmonary edema since the patient is known to have history of mild LV dysfunction with ejection fraction of 45%, and now she has acute renal failure with possibly fluid overload. Underlying pneumonia is not entirely ruled out but felt to be less likely. Patient did have leukocytosis she also did have elevated BNP level, however her pro calcitonin is pending. Renal ultrasound done today, continues to show mild the left hydronephrosis similar to what she had on the last admission, and she had nonobstructive bilateral renal calculi with atrophic right kidney nephrology consultation is pending. In the meantime the patient was placed empirically on antibiotics in the form of Rocephin and Zithromax. Looking at previous urine cultures from the last admission, patient did have Enterococcus faecium/VRE positive cultures and the urine and previously she had history of ESBL Klebsiella pneumoniae infection in the urine considering this, the patient will need to be covered with daptomycin and will definitely arrange for consultation by infectious disease on the case. As the patient may have underlying urinary tract infection and urosepsis. The patient is seen today 10/04/2022 in follow-up in the intensive care unit. She is currently awake and alert. She is on BiPAP 12/5 and 60% FiO2 maintaining O2 saturations in the 90s. She is still requiring a Lasix drip currently at 5 mg per hour. Norepinephrine at 0.07 mcg/kg/m. Bicarb drip has been discontinued. Chest x-ray shows similar haziness in the left lung and right perihilar region with small bilateral pleural effusions. Cardiomegaly and suspected congestive heart failure versus pneumonia. White count 16.6. Hemoglobin 9.6. Platelet 147. Sodium 140. Potassium 3.2. Bicarb 23. BUN 40. Creatinine 3.58. Glucose 201. Pro calcitonin 4.67. ProBNP 12,000. Childress virus not detected. Urinalysis cloudy with large blood and large leukocytes HIDA be PVCs and occasional bacteria. She remains on cefepime, daptomycin, Diflucan. Continued on bronchodilators. The patient is seen today 10/05/2022 in follow-up in the intensive care unit. She is currently sitting up in bed. Awake and alert in no acute distress. She remains on 6 L high flow nasal cannula. She did utilize BiPAP last night 02/15 and 60% FiO2. She is continued on a Lasix drip at 5 mg per hour. Amiodarone at 0.5 mg/m. Norepinephrine at 0.03 mcg/kg/m. Chest x-ray reveals patchy perihilar and basilar infiltrates without significant change. Small pleural effusions. White count 15.8. Hemoglobin 9.3. Platelets 146. Sodium 138. Potassium 3.9. Bicarb 23. BUN 41. Creatinine 2.90. Glucose 136. She is continued on Diflucan, cefepime and daptomycin. Anticoagulated with Eliquis. Objective - Vital Signs Vital signs: Vital Signs Temp 97.7 F 10/05/22 07:15 Pulse 90 10/05/22 08:24 Resp 7 L 10/05/22 08:00 BP 112/53 10/05/22 08:00 Pulse Ox 92 L 10/05/22 08:07 FiO2 60 10/04/22 09:03 Intake & Output 10/04/22 10/05/22 10/05/22 18:59 06:59 18:59 Intake Total 388.374 398.155 Output Total 770 1225 115 Balance -381.626 -826.845 -115 Weight 74.6 kg Intake: IV 65 30 Dextrose 5% in Water 1, 0 000 ml @ 100 mls/hr IV . [id number] [facility] with Sodium Bicarb (1 Meq/ml) 150 ml Rx#:[id number] Furosemide 100 mg In 65 30 Sodium Chloride 0.9% 90 ml @ 5 MG/HR 5 mls/hr IV .Q20H [facility] Rx#:[id number] Intake, IV Titration 323.374 368.155 Amount Cefepime 1 gm In Sodium 100 Chloride 0.9% 50 ml @ 12. 5 mls/hr IVPB Q12HR [facility] Rx#:[id number] Furosemide 100 mg In 100 Sodium Chloride 0.9% 90 ml @ 5 MG/HR 5 mls/hr IV .Q20H [facility] Rx#:[id number] Norepinephrine 8 mg In 123.374 168.155 Sodium Chloride 0.9% 250 ml @ 0.03 MCG/KG/MIN 4.22 mls/hr IV .Q24H [facility] Rx#: [id number] Potassium Chloride 20 meq 100 In Water For Injection 1 100ml.bag @ 50 mls/hr IVPB Q2H [facility] Rx#: [id number] Potassium Chloride 20 meq 100 In Water For Injection 1 100ml.bag @ 50 mls/hr IVPB Q2H [facility] Rx#: [id number] Output: Urine 770 1225 115 Other: Voiding Method Indwelling Catheter Indwelling Catheter ABP, PAP, CO, CI - Last Documented Arterial Blood Pressure 115/42 - Exam GENERAL EXAM: Alert, pleasant 71-year-old female on 6 L high flow nasal cannula, comfortable in no apparent distress. HEAD: Normocephalic. EYES: Normal reaction of pupils, equal size. NOSE: Clear with pink turbinates. THROAT: No erythema or exudates. NECK: No masses, no JVD. CHEST: No chest wall deformity. LUNGS: Equal air entry with crackles at the bilateral bases. CVS: S1 and S2 normal with no audible murmur, regular rhythm. ABDOMEN: No hepatosplenomegaly, normal bowel sounds, no guarding or rigidity. SPINE: No scoliosis or deformity SKIN: No rashes CENTRAL NERVOUS SYSTEM: No focal deficits, tone is normal in all 4 extremities. EXTREMITIES: There is 1+ peripheral edema. No clubbing, no cyanosis. Peripheral pulses are intact. - Labs CBC & Chem 7: 10/05/22 04:45 10/05/22 04:45 Labs: Abnormal Lab Results - Last 24 Hours (Table) 10/04/22 10/04/22 10/04/22 Range/Units 08:59 11:42 17:55 WBC (3.8-10.6) k/uL RBC (3.80-5.40) m/uL Hgb (11.4-16.0) gm/dL Hct (34.0-46.0) % MCHC (31.0-37.0) g/dL RDW (11.5-15.5) % Plt Count (150-450) k/uL Neutrophils # (1.3-7.7) k/uL BUN (7-17) mg/dL Creatinine (0.52-1.04) mg/dL Glucose (74-99) mg/dL POC Glucose (mg/dL) 178 H 179 H 177 H (70-110) mg/dL Calcium (8.4-10.2) mg/dL 10/04/22 10/05/22 10/05/22 Range/Units 21:22 04:45 04:45 WBC 15.8 H (3.8-10.6) k/uL RBC 3.18 L (3.80-5.40) m/uL Hgb 9.3 L (11.4-16.0) gm/dL Hct 30.4 L (34.0-46.0) % MCHC 30.7 L (31.0-37.0) g/dL RDW 23.5 H (11.5-15.5) % Plt Count 146 L (150-450) k/uL Neutrophils # 13.3 H (1.3-7.7) k/uL BUN 41 H (7-17) mg/dL Creatinine 2.90 H (0.52-1.04) mg/dL Glucose 136 H (74-99) mg/dL POC Glucose (mg/dL) 188 H (70-110) mg/dL Calcium 7.4 L (8.4-10.2) mg/dL Microbiology - Last 24 Hours (Table) 10/03/22 12:45 Gram Stain - Preliminary Groin Assessment and Plan Assessment: Acute hypoxic respiratory failure strongly suspect pulmonary edema secondary to an acute exacerbation of diastolic congestive heart failure Acute sepsis and septic shock, most likely source is urine, culture pending. Continued on Diflucan, cefepime, daptomycin Severe metabolic acidosis secondary to acute kidney injury Atrial fibrillation, currently on amiodarone, Eliquis History of chronic kidney disease stage III Benign essential hypertension Diabetic neuropathy History of bariatric surgery Plan: The patient was seen and evaluated Chest x-ray, labs and medications reviewed Lasix drip continues at 5 mg per hour Titrate down the norepinephrine as tolerated Continued on IV amiodarone at 0.5 mg/min Anticoagulated with Eliquis Titrate down the FiO2 as tolerated Continue bronchodilators, antibiotics We will continue to follow I have personally seen and examined the patient, performed the documentation and the assessment and plan as written. Number of minutes spent on the visit: 10.
[2022-10-05] MEDS ORDERED: POTASSIUM CHLORIDE 20 MEQ in WATER FOR INJECTION 1 100ML.BAG IVPB STA (09:43)
[2022-10-05] MEDS: MIDODRINE 5 MG TAB PO SCH ×3 (10:14→16:59)
--- NOTE | 2022-10-05 10:26 | P.PN ---
Subjective Patient is seen in follow-up for acute kidney injury on chronic kidney disease. Renal function better. Nonoliguric. On Lasix drip. On Levophed. Sitting up in bed. Vital signs are stable. Blood pressure low. On vasopressor support. General: No acute distress. HEENT: Head exam is unremarkable. On nasal cannula. LUNGS: Scattered rhonchi. HEART: Rate and Rhythm are regular. ABDOMEN: Nontender. EXTREMITITES: 2+ edema. Objective - Vital Signs Vital signs: Vital Signs Temp 97.7 F 10/05/22 07:15 Pulse 87 10/05/22 10:00 Resp 38 H 10/05/22 10:00 BP 88/48 10/05/22 10:00 Pulse Ox 92 L 10/05/22 10:00 FiO2 60 10/04/22 09:03 Intake & Output 10/04/22 10/05/22 10/05/22 18:59 06:59 18:59 Intake Total 388.374 398.155 Output Total 770 1225 230 Balance -381.626 -826.845 -230 Weight 74.6 kg Intake: IV 65 30 Dextrose 5% in Water 1, 0 000 ml @ 100 mls/hr IV . [id number] [facility] with Sodium Bicarb (1 Meq/ml) 150 ml Rx#:[id number] Furosemide 100 mg In 65 30 Sodium Chloride 0.9% 90 ml @ 5 MG/HR 5 mls/hr IV .Q20H [facility] Rx#:[id number] Intake, IV Titration 323.374 368.155 Amount Cefepime 1 gm In Sodium 100 Chloride 0.9% 50 ml @ 12. 5 mls/hr IVPB Q12HR [facility] Rx#:[id number] Furosemide 100 mg In 100 Sodium Chloride 0.9% 90 ml @ 5 MG/HR 5 mls/hr IV .Q20H [facility] Rx#:[id number] Norepinephrine 8 mg In 123.374 168.155 Sodium Chloride 0.9% 250 ml @ 0.03 MCG/KG/MIN 4.22 mls/hr IV .Q24H [facility] Rx#: [id number] Potassium Chloride 20 meq 100 In Water For Injection 1 100ml.bag @ 50 mls/hr IVPB Q2H [facility] Rx#: [id number] Potassium Chloride 20 meq 100 In Water For Injection 1 100ml.bag @ 50 mls/hr IVPB Q2H [facility] Rx#: [id number] Output: Urine 770 1225 230 Other: Voiding Method Indwelling Catheter Indwelling Catheter Indwelling Catheter ABP, PAP, CO, CI - Last Documented Arterial Blood Pressure 90/37 - Labs CBC & Chem 7: 10/05/22 04:45 10/05/22 04:45 Labs: Abnormal Lab Results - Last 24 Hours (Table) 10/04/22 10/04/22 10/04/22 Range/Units 11:42 17:55 21:22 WBC (3.8-10.6) k/uL RBC (3.80-5.40) m/uL Hgb (11.4-16.0) gm/dL Hct (34.0-46.0) % MCHC (31.0-37.0) g/dL RDW (11.5-15.5) % Plt Count (150-450) k/uL Neutrophils # (1.3-7.7) k/uL BUN (7-17) mg/dL Creatinine (0.52-1.04) mg/dL Glucose (74-99) mg/dL POC Glucose (mg/dL) 179 H 177 H 188 H (70-110) mg/dL Calcium (8.4-10.2) mg/dL 10/05/22 10/05/22 Range/Units 04:45 04:45 WBC 15.8 H (3.8-10.6) k/uL RBC 3.18 L (3.80-5.40) m/uL Hgb 9.3 L (11.4-16.0) gm/dL Hct 30.4 L (34.0-46.0) % MCHC 30.7 L (31.0-37.0) g/dL RDW 23.5 H (11.5-15.5) % Plt Count 146 L (150-450) k/uL Neutrophils # 13.3 H (1.3-7.7) k/uL BUN 41 H (7-17) mg/dL Creatinine 2.90 H (0.52-1.04) mg/dL Glucose 136 H (74-99) mg/dL POC Glucose (mg/dL) (70-110) mg/dL Calcium 7.4 L (8.4-10.2) mg/dL Microbiology - Last 24 Hours (Table) 10/03/22 11:35 Blood Culture Gram Stain - Preliminary Blood 10/03/22 12:45 Gram Stain - Preliminary Groin Assessment and Plan Plan: Assessment: 1. Acute kidney injury secondary to ATN secondary to cardiorenal syndrome. Creatinine 4.8 on admission and is 2.9 today. 2. Chronic kidney disease stage III with baseline creatinine 1.1-1.3 secondary to obstructive uropathy. 3. Hypokalemia from diuresis and cellular shifting from IV bicarb. Replaced. Better. 4. Metabolic acidosis secondary to acute kidney injury improved and bicarb drip. 5. Acute hypoxic respiratory failure. 6. Volume overload. Improving with diuresis. 7. Shock maintained on Levophed. ?septic. Plan: Maintain Lasix drip. Wean vasopressors. Add midodrine. Hold for systolic blood pressure greater than 110. Avoid nephrotoxins. Continue to monitor renal function and urine output.
--- NOTE | 2022-10-05 11:10 | PN ---
PROGRESS NOTE SUBJECTIVE: Mrs. Alamo is a 71-year-old lady who was seen by me yesterday. She presented with multiple medical problems, but she has acute kidney injury, type 2 diabetes mellitus, nephrolithiasis with mild hydronephrosis, and COPD. Yesterday, she had a combination of what seems to be a volume overload picture with metabolic acidosis and related systolic dysfunction in addition to COPD with exacerbation. However, in the morning yesterday around noontime or so, she went into atrial fib with rapid rate. I placed her on amiodarone drip. She is now in sinus rhythm. I am suggesting we switch the amiodarone to 200 mg b.i.d. p.o. and discontinue the IV amiodarone when the 24-hour infusion is complete. She is looking much better clinically. She is on a very small dose of Levophed which is being weaned off. She has multiple comorbid conditions, possible urosepsis, but she is making good progress. OBJECTIVE: VITAL SIGNS: Stable. NECK: There is no JVD. HEARD: S1, S2 heard normally. Rhythm appears to be regular. Short systolic murmur is noted. LUNGS: Diminished air entry. ABDOMEN: Soft. EXTREMITIES: Lower extremities reveal diminished pulses. CENTRAL NERVOUS SYSTEM: Grossly no focal deficits. ASSESSMENT AND PLAN: Plan is to switch her from IV to oral amiodarone. The patient's renal function is steadily improving. We will continue to keep an eye on this. MMODL / IJN: [id number] /
[2022-10-05] MEDS: buPROPion 75 MG TAB PO SCH (11:19)
[2022-10-05] MEDS: AMIODARONE 450 MG in DEXTROSE 5% IN WATER 250 ML IV SCH ×2 (11:21)
[2022-10-05 11:51] LABS: Glucose,Whole Blood 148 mg/dL (70-110)
[2022-10-05] MEDS ORDERED: ANIDULAFUNGIN 200 MG in SODIUM CHLORIDE 0.9% 200 ML IVPB ONE (12:31)
--- NOTE | 2022-10-05 13:41 | P.PN ---
Subjective Progress Note Date: 10/05/22 Principal diagnosis: Sepsis and UTI Patient is a 71-year-old female with a past medical history negative for recurrent urinary tract infection, presented to hospital with weakness and mental status changes and respiratory distress patient was found to be septic likely from urinary source and admitted to ICU requiring BiPAP. On today's evaluation that is 10/04/2022, the patient remains to be afebrile, patient is more awake and alert today and is breathing comfortably on nasal cannula, patient is requiring low-dose pressor support to maintain her blood pressure though less the morning compared to yesterday patient also been treated A. fib with RVR yesterday and has been started on amiodarone, patient denies having any chest pain did have mild cough, no abdominal pain no diarrhea Objective - Vital Signs Vital signs: Vital Signs Temp 98 F 10/05/22 11:15 Pulse 91 10/05/22 12:15 Resp 14 10/05/22 12:15 BP 90/69 10/05/22 12:15 Pulse Ox 91 L 10/05/22 12:15 FiO2 60 10/04/22 09:03 Intake & Output 10/04/22 10/05/22 10/05/22 18:59 06:59 18:59 Intake Total 388.374 398.155 218.893 Output Total 770 1225 355 Balance -381.626 -826.845 -136.107 Weight 74.6 kg Intake: IV 65 30 Dextrose 5% in Water 1, 0 000 ml @ 100 mls/hr IV . [id number] [facility] with Sodium Bicarb (1 Meq/ml) 150 ml Rx#:[id number] Furosemide 100 mg In 65 30 Sodium Chloride 0.9% 90 ml @ 5 MG/HR 5 mls/hr IV .Q20H [facility] Rx#:[id number] Intake, IV Titration 323.374 368.155 218.893 Amount Amiodarone 450 mg In 218.893 Dextrose 5% in Water 250 ml @ 0.5 MG/MIN 16.667 mls/hr IV .Q15H [facility] Rx#: [id number] Cefepime 1 gm In Sodium 100 Chloride 0.9% 50 ml @ 12. 5 mls/hr IVPB Q12HR [facility] Rx#:[id number] Furosemide 100 mg In 100 Sodium Chloride 0.9% 90 ml @ 5 MG/HR 5 mls/hr IV .Q20H [facility] Rx#:[id number] Norepinephrine 8 mg In 123.374 168.155 Sodium Chloride 0.9% 250 ml @ 0.03 MCG/KG/MIN 4.22 mls/hr IV .Q24H [facility] Rx#: [id number] Potassium Chloride 20 meq 100 In Water For Injection 1 100ml.bag @ 50 mls/hr IVPB Q2H [facility] Rx#: [id number] Potassium Chloride 20 meq 100 In Water For Injection 1 100ml.bag @ 50 mls/hr IVPB Q2H [facility] Rx#: [id number] Output: Urine 770 1225 355 Other: Voiding Method Indwelling Catheter Indwelling Catheter Indwelling Catheter ABP, PAP, CO, CI - Last Documented Arterial Blood Pressure 129/48 - Exam GENERAL DESCRIPTION: An elderly female lying in bed in no distress RESPIRATORY SYSTEM: Unlabored breathing , decreased breath sounds at bases HEART: S1 S2 regular rate and rhythm , ABDOMEN: Soft , no tenderness EXTREMITIES: No edema feet - Labs CBC & Chem 7: 10/05/22 04:45 10/05/22 04:45 Labs: Abnormal Lab Results - Last 24 Hours (Table) 10/04/22 10/04/22 10/05/22 Range/Units 17:55 21:22 04:45 WBC 15.8 H (3.8-10.6) k/uL RBC 3.18 L (3.80-5.40) m/uL Hgb 9.3 L (11.4-16.0) gm/dL Hct 30.4 L (34.0-46.0) % MCHC 30.7 L (31.0-37.0) g/dL RDW 23.5 H (11.5-15.5) % Plt Count 146 L (150-450) k/uL Neutrophils # 13.3 H (1.3-7.7) k/uL BUN (7-17) mg/dL Creatinine (0.52-1.04) mg/dL Glucose (74-99) mg/dL POC Glucose (mg/dL) 177 H 188 H (70-110) mg/dL Calcium (8.4-10.2) mg/dL 10/05/22 10/05/22 Range/Units 04:45 11:50 WBC (3.8-10.6) k/uL RBC (3.80-5.40) m/uL Hgb (11.4-16.0) gm/dL Hct (34.0-46.0) % MCHC (31.0-37.0) g/dL RDW (11.5-15.5) % Plt Count (150-450) k/uL Neutrophils # (1.3-7.7) k/uL BUN 41 H (7-17) mg/dL Creatinine 2.90 H (0.52-1.04) mg/dL Glucose 136 H (74-99) mg/dL POC Glucose (mg/dL) 148 H (70-110) mg/dL Calcium 7.4 L (8.4-10.2) mg/dL Microbiology - Last 24 Hours (Table) 10/03/22 23:20 Urine Culture - Final Urine,Voided 10/03/22 12:45 Gram Stain - Preliminary Groin Wound Culture - Preliminary Group D Enterococcus Cee albicans 10/03/22 11:35 Blood Culture Gram Stain - Preliminary Blood Assessment and Plan (1) Sepsis Current Visit: No Status: Acute Code(s): A41.9 - SEPSIS, UNSPECIFIED ORGANISM SNOMED Code(s): 42554123 (2) UTI (urinary tract infection) Current Visit: No Status: Acute Code(s): N39.0 - URINARY TRACT INFECTION, SITE NOT SPECIFIED SNOMED Code(s): 37221206 Plan: 1patient was in the hospital with sepsis in this patient noticed to be hypothermic tachypneic mild hypotension and elevated white count source is multifactorial concerning for UTI with recent urine culture positive for VRE plus minus a component of pneumonia with significant respiratory symptoms 2-patient with multiple antibiotic allergies and renal insufficiency that would limit the number of antibiotics safe to use 3Patient did have procalcitonin level of 4.67 5-patient blood culture came positive with the yeast/Cee Stable urinary source patient has been started on amiodarone that will prevent the use of Diflucan we will go ahead and discontinue Diflucan started patient on Eraxis, blood cultures will be repeated documented recurrence of bacteremia for now also continue with the daptomycin while waiting for the cultures to finalize Dictation was produced using [employer] dictation software. please excuse any grammatical, word or spelling errors. Time with Patient: Less than 30
[2022-10-05] MEDS: AMIODARONE 100 MG TAB PO SCH ×2 (15:48→21:56)
[2022-10-05] MEDS: DAPTOmycin 500 MG in SODIUM CHLORIDE 0.9% 50 ML IVPB SCH (15:50)
[2022-10-05] MEDS ORDERED: AMIODARONE 100 MG TAB PO SCH (16:15)
[2022-10-05 18:33] LABS: Glucose,Whole Blood 153 mg/dL (70-110)
--- NOTE | 2022-10-05 20:11 | P.PN ---
Subjective This is a pleasant 71 years old female with multiple medical problems including Diabetes Mellitus, Hypertension, NEUROPATHY, MIGRAINES, fractured right shoulder,s/p Bariatric Surgery, Bladder Surgery, Hysterectomy, COPD altered mentation and respiratorty distress. The pt was found by the pts this morning in her recliner chair with belly breathing and difficult to arouse. Patient currently on BiPAP machine but she can answer some questions although she looks tired and lethargic. Patient says she's been feeling short of breath for the last 2-3 days with no chest pain or coughing. Was progressively getting worse. Patient basically denies other symptoms like no headache dizziness weakness or numbness. No abdominal pain vomiting or diarrhea. No urinary complaints. SHE admits to some vaginal discharge for 3 days. On admission she was tachypneic about 40/m, blood pressure 95/56. Patient is afebrile Also patient with leukocytosis 22.8, hemoglobin 10. Platelet count within the reference range INR 1.6. D-dimer 0.67. Arterial pH is low 7.0. PO2 74. CO2 within the reference range at 42. Potassium 5.3. Creatinine elevated 4.8, with a baseline 1.3-1.4 liver enzymes and bilirubin unremarkable. ProBNP 12,000. Troponin negative. Childress v is not detected EKG: Normal sinus rhythm at [address]-T changes. Chest x-ray: Haziness within the left upper lung and right perihilar regions correlate with serum BNP 4 congestive heart failure and for a new pneumonia. I reviewed chest x-ray by myself also the suspicion of pleural effusion On admission patient was started on 10/04/2022 pt remains in the icu in critical condition but showing signs of improvement her resp rate decreased from 33 down to (25-27),her oxygen requirement went down from 15 to 10 l/m her creatinine is down to 2.5 from 4.8 leukocytosis is improving 22 down to 16k however her prognosis remains guarded several inside sales consultant on the case including pulmonary and critical care team accounts adjustable clerk and tubing machine tender and ID team she is on levophed, Lasix drip at 5 mg/hr, daptomycin, cefepime and diflucan , also pt was started on eliquis and amiodarone drip by cardiology team 10/05/2022 Patient remains in the ICU, she is oriented to time place and person she looks lethargic Her oxygen requirement down from 10 down to 6 L/m She remains on Levophed at 0.03 and Lasix drip and 5 mg/h, amiodarone drip in the morning she switched to oral later on. Patient also was poor appetite. No bowel movement. Krishnamurthy catheter is in place. Patient still in fluid overload and that's why she is on Lasix drip mostly related to her kidney disease Currently she is covered with daptomycin, cefepime and eraxis. Wound culture is growing group D enterococcus I and yeast Active Medications Generic Name Dose Route Start Last Admin Trade Name Freq PRN Reason Stop Dose Admin Acetaminophen 650 mg 10/05/22 19:51 Acetaminophen Tab 325 Mg Tab PO Q6HR PRN Fever and/ or Pain Albuterol/Ipratropium 3 ml 10/03/22 12:00 10/05/22 20:01 Ipratropium-Albuterol 3 Ml Neb INHALATION 3 ml RT-QID ALBERTO Administration Albuterol/Ipratropium 3 ml 10/03/22 11:18 Ipratropium-Albuterol 3 Ml Neb INHALATION RT-Q4H PRN shortness of breath Amiodarone HCl 100 mg 10/05/22 15:15 10/05/22 15:48 Amiodarone 100 Mg Tab PO 100 mg BID ALBERTO Administration Apixaban 2.5 mg 10/04/22 21:00 10/05/22 08:35 Apixaban 2.5 Mg Tablet PO 2.5 mg BID ALBERTO Administration Protocol Bupropion HCl 150 mg 10/05/22 10:30 10/05/22 11:19 Bupropion 75 Mg Tab PO 150 mg DAILY ALBERTO Administration Famotidine 20 mg 10/03/22 21:00 10/04/22 21:13 Famotidine 20 Mg/2 Ml Vial IV 20 mg HS ALBERTO Administration Hydromorphone HCl 0.5 mg 10/03/22 14:47 10/05/22 18:21 Hydromorphone 0.5 Mg/0.5 Ml Syringe IVP 0.5 mg Q3HR PRN Administration Pain Furosemide 100 mg/ Sodium 100 mls @ 5 mls/hr 10/03/22 11:30 10/05/22 03:21 Chloride IV 5 mg/hr .Q20H ALBERTO 5 mls/hr Administration 5 MG/HR Daptomycin 500 mg/ Sodium 50 mls @ 100 mls/hr 10/03/22 16:00 10/05/22 15:50 Chloride IVPB 100 mls/hr Q48H ALBERTO Administration Protocol Norepinephrine Bitartrate 8 mg 258 mls @ 4.22 mls/hr 10/03/22 22:00 10/05/22 19:08 / Sodium Chloride IV 0.01 mcg/kg/min .Q24H ALBERTO 1.407 mls/hr Titration Protocol 0.03 MCG/KG/MIN Cefepime HCl 1 gm/ Sodium 50 mls @ 12.5 mls/hr 10/03/22 23:15 10/05/22 08:35 Chloride IVPB 12.5 mls/hr Q12HR ALBERTO Administration Protocol Anidulafungin 100 mg/ Sodium 100 mls @ 84 mls/hr 10/06/22 09:00 Chloride IVPB DAILY ALBERTO Protocol Midodrine 5 mg 10/05/22 09:44 10/05/22 16:59 Midodrine 5 Mg Tab PO 5 mg AC-TID ALBERTO Administration Miscellaneous Information 1 each 10/03/22 11:18 Pneumonia Protocol Utilized 1 Each Misc PO ONCE PRN Per Protocol Naloxone HCl 0.2 mg 10/03/22 14:19 Naloxone 0.4 Mg/Ml 1 Ml Vial IV Q2M PRN Opioid Reversal Pantoprazole Sodium 40 mg 10/04/22 09:00 10/05/22 08:36 Pantoprazole 40 Mg/10 Ml Vial IV 40 mg DAILY ALBERTO Administration Objective - Vital Signs Vital signs: Vital Signs Temp 97.7 F 10/05/22 07:15 Pulse 92 10/05/22 09:00 Resp 29 H 10/05/22 09:00 BP 112/53 10/05/22 09:00 Pulse Ox 88 L 10/05/22 09:00 FiO2 60 10/04/22 09:03 Intake & Output 10/04/22 10/05/22 10/05/22 18:59 06:59 18:59 Intake Total 388.374 398.155 Output Total 770 1225 170 Balance -381.626 -826.845 -170 Weight 74.6 kg Intake: IV 65 30 Dextrose 5% in Water 1, 0 000 ml @ 100 mls/hr IV . [id number] ALBERTO with Sodium Bicarb (1 Meq/ml) 150 ml Rx#:[id number] Furosemide 100 mg In 65 30 Sodium Chloride 0.9% 90 ml @ 5 MG/HR 5 mls/hr IV .Q20H [facility] Rx#:[id number] Intake, IV Titration 323.374 368.155 Amount Cefepime 1 gm In Sodium 100 Chloride 0.9% 50 ml @ 12. 5 mls/hr IVPB Q12HR [facility] Rx#:[id number] Furosemide 100 mg In 100 Sodium Chloride 0.9% 90 ml @ 5 MG/HR 5 mls/hr IV .Q20H [facility] Rx#:[id number] Norepinephrine 8 mg In 123.374 168.155 Sodium Chloride 0.9% 250 ml @ 0.03 MCG/KG/MIN 4.22 mls/hr IV .Q24H [facility] Rx#: [id number] Potassium Chloride 20 meq 100 In Water For Injection 1 100ml.bag @ 50 mls/hr IVPB Q2H [facility] Rx#: [id number] Potassium Chloride 20 meq 100 In Water For Injection 1 100ml.bag @ 50 mls/hr IVPB Q2H [facility] Rx#: [id number] Output: Urine 770 1225 170 Other: Voiding Method Indwelling Catheter Indwelling Catheter Indwelling Catheter ABP, PAP, CO, CI - Last Documented Arterial Blood Pressure 111/44 - Exam -GENERAL: The patient is alert and oriented x3, in moderate acute respiratory distress. Well developed, well nourished. HEENT: Pupils are round and equally reacting to light. EOMI. No scleral icterus. No conjunctival pallor. Normocephalic, atraumatic. No pharyngeal erythema. No thyromegaly. CARDIOVASCULAR: S1 and S2 present. No murmurs, rubs, or gallops. -PULMONARY: Chest is clear to auscultation, no wheezing , no crackles. Decreased air entry especially abdomen lung bases, tachypnea ABDOMEN: Soft, nontender, nondistended, normoactive bowel sounds. No palpable organomegaly. MUSCULOSKELETAL: No joint swelling or deformity. -EXTREMITIES: No cyanosis, clubbing, or bilateral extremity edema NEUROLOGICAL: Gross neurological examination did not reveal any focal deficits. SKIN: No rashes. no petechiae. - Labs CBC & Chem 7: 10/05/22 04:45 10/05/22 04:45 Labs: Abnormal Lab Results - Last 24 Hours (Table) 10/04/22 10/04/22 10/04/22 Range/Units 11:42 17:55 21:22 WBC (3.8-10.6) k/uL RBC (3.80-5.40) m/uL Hgb (11.4-16.0) gm/dL Hct (34.0-46.0) % MCHC (31.0-37.0) g/dL RDW (11.5-15.5) % Plt Count (150-450) k/uL Neutrophils # (1.3-7.7) k/uL BUN (7-17) mg/dL Creatinine (0.52-1.04) mg/dL Glucose (74-99) mg/dL POC Glucose (mg/dL) 179 H 177 H 188 H (70-110) mg/dL Calcium (8.4-10.2) mg/dL 10/05/22 10/05/22 Range/Units 04:45 04:45 WBC 15.8 H (3.8-10.6) k/uL RBC 3.18 L (3.80-5.40) m/uL Hgb 9.3 L (11.4-16.0) gm/dL Hct 30.4 L (34.0-46.0) % MCHC 30.7 L (31.0-37.0) g/dL RDW 23.5 H (11.5-15.5) % Plt Count 146 L (150-450) k/uL Neutrophils # 13.3 H (1.3-7.7) k/uL BUN 41 H (7-17) mg/dL Creatinine 2.90 H (0.52-1.04) mg/dL Glucose 136 H (74-99) mg/dL POC Glucose (mg/dL) (70-110) mg/dL Calcium 7.4 L (8.4-10.2) mg/dL Microbiology - Last 24 Hours (Table) 10/03/22 11:35 Blood Culture Gram Stain - Preliminary Blood 10/03/22 12:45 Gram Stain - Preliminary Groin Assessment and Plan Assessment: acute congestive heart failure ,diastolic with ef 55-60% acute UTI, and possible pna as well Hypotension and shock , both cardiogenic and septic Acute hypoxic respiratory failure Severe metabolic acidosis Acute kidney injury on chronic kidney disease stage III Diabetes mellitus Hypertension History of neuropathy and migraine History of bariatric surgery Obesity with BMI of 30.3 Plan: Continue with antibiotics daptomycin , cefepime, and eraxis. Follow-up culture results. Continue with oxygen and BiPAP as needed. Patient on lasix drip continue the pressors levophed Symptomatic vaginal swab several consultants on the case pulmonary and critical care, tubing machine tender, ID, Industrial Controls Technician Labs and medication were reviewed.. Continue same treatment. Continue with symptomatic treatment. Resume home medication. Monitor labs and vitals. DVT and GI prophylaxis. Further recommendations as per clinical course of the patient DVT prophylaxis:Eliquis GI Prophylaxis: Ppi Prognosis is guarded
[2022-10-05] MEDS: FAMOTIDINE 20 MG/2 ML VIAL IV SCH (20:12)
[2022-10-05 21:02] LABS: Glucose,Whole Blood 145 mg/dL (70-110)
[2022-10-05] MEDS ORDERED: Potassium Replacement Protocol 1 EACH MISC MISCELLANE PRN (23:03)
[2022-10-05] MEDS: POTASSIUM CHLORIDE 10 MEQ in WATER FOR INJECTION 1 100ML.BAG IVPB SCH (23:09)
[2022-10-05 23:34] LABS: Glucose,Whole Blood 168 mg/dL (70-110)
[2022-10-06] MEDS: POTASSIUM CHLORIDE 10 MEQ in WATER FOR INJECTION 1 100ML.BAG IVPB SCH ×5 (00:15→21:26)
[2022-10-06] MEDS: ACETAMINOPHEN TAB 325 MG TAB PO PRN ×3 (00:55→18:23)
[2022-10-06] MEDS: HYDROmorphone 0.5 MG/0.5 ML SYRINGE IVP PRN (04:08)
[2022-10-06 04:53] LABS: Anisocytosis Moderate; Basophils % (A) 0 %; Eosinophils # (A) 0.1 k/uL (0-0.7); Eosinophils % (A) 0 %; HCT 28.6 % (34.0-46.0); HGB 9.1 gm/dL (11.4-16.0); Hypochromasia Marked; Lymphocytes # (A) 1.7 k/uL (1.0-4.8); Lymphocytes % (A) 9 %; Macrocytosis Moderate; Mean Platelet Volume 9.5; Monocytes # (A) 0.4 k/uL (0-1.0); Monocytes % (A) 2 %; Neutrophils # (A) 15.9 k/uL (1.3-7.7); Neutrophils % (A) 87 %; Platelet Count 176 k/uL (150-450); Poikilocytosis Slight; RBC 3.04 m/uL (3.80-5.40); RDW 23.5 % (11.5-15.5); WBC 18.3 k/uL (3.8-10.6)
[2022-10-06 05:20] LABS: African American GFR (CKD) 22 (>60 ml/min/1.73 sqM); Anion Gap 12 mmol/L; Blood Urea Nitrogen 39 mg/dL (7-17); Calcium 7.2 mg/dL (8.4-10.2); Carbon Dioxide 22 mmol/L (22-30); Chloride 105 mmol/L (98-107); Glucose 130 mg/dL (74-99); Non-African American GFR(CKD) 19 (>60 ml/min/1.73 sqM); Potassium 3.7 mmol/L (3.5-5.1); Sodium 139 mmol/L (137-145)
[2022-10-06] MEDS ORDERED: HYDROcodone/APAP 5-325MG 1 EACH TAB PO PRN (07:40)
--- NOTE | 2022-10-06 08:15 | XR ---
EXAMINATION TYPE: XR chest 1V portable DATE OF EXAM: 10/06/2022 6:24 AM COMPARISON: Chest radiographs from 10/05/2022 TECHNIQUE: XR chest 1V portable Frontal view of the chest. CLINICAL INDICATION:Female, 71 years old with history of dyspnea; FINDINGS: Lungs/Pleura: Similar multifocal airspace opacities. No evidence of pneumothorax. Blunting of the cos tophrenic angles. Pulmonary vascularity: Unremarkable. Heart/mediastinum: Cardiomediastinal silhouette is partially obscured due to overlying and adjacent o pacities. Musculoskeletal: No acute osseous pathology. IMPRESSION: Patchy perihilar and basilar infiltrates persist without significant change. Small pleural effusions noted as well.
[2022-10-06] MEDS ORDERED: DEXTROSE 5% IN WATER 100 ML with AMIODARONE 150 MG IV ONE (08:29)
[2022-10-06] MEDS: buPROPion 75 MG TAB PO SCH (08:30)
[2022-10-06] MEDS: APIXABAN 2.5 MG TABLET PO SCH ×2 (08:30→21:39)
[2022-10-06] MEDS: PANTOPRAZOLE 40 MG/10 ML VIAL IV SCH (08:30)
[2022-10-06] MEDS: MIDODRINE 5 MG TAB PO SCH ×3 (08:30→18:23)
[2022-10-06] MEDS: LIDOCAINE 5% PATCH TOPICAL SCH (08:31)
[2022-10-06] MEDS: CEFEPIME 1 GM in SODIUM CHLORIDE 0.9% 50 ML IVPB SCH ×2 (08:34→21:45)
[2022-10-06] MEDS ORDERED: AMIODARONE 100 MG TAB PO SCH (09:00)
[2022-10-06] MEDS: IPRATROPIUM-ALBUTEROL 3 ML NEB INHALATION SCH ×4 (09:17→20:40)
[2022-10-06] MEDS: ANIDULAFUNGIN 100 MG in SODIUM CHLORIDE 0.9% 100 ML IVPB SCH (09:19)
[2022-10-06] MEDS: AMIODARONE 450 MG in DEXTROSE 5% IN WATER 250 ML IV SCH ×4 (09:20→21:26)
[2022-10-06] MEDS: NOREPINEPHRINE 8 MG in SODIUM CHLORIDE 0.9% 250 ML IV SCH (10:16)
--- NOTE | 2022-10-06 11:13 | P.PN ---
Subjective Progress Note Date: 10/06/22 This is a 71-year-old female with history of multiple medical problems including type 2 diabetes, hypertension, diabetic neuropathy, migraine cephalgia, COPD, patient was recently in the hospital with nephrolithiasis, and hydronephrosis. She was seen by urology on consultation, and no surgical intervention was felt to be necessary for her nephrolithiasis or mild hydronephrosis. Patient was treated conservatively, she was discharged home on the . Patient was brought into the ER today complaining of shortness of breath and mental status change. Apparently upon arrival to the ER, the patient was in respiratory distress, she was also confused, patient was placed on BiPAP. Her initial ABG on arrival showed a pO2 of 74 pCO2 42 pH of 7.07 consistent with severe metabolic acidosis. Her bicarb was only 12. BUN is 41 and creatinine 4.80 however her creatinine was in the range of 1.30 just a few days ago. Obviously the patient had developed worsening renal failure, severe metabolic acidosis secondary to her renal failure, and her chest x-ray showed evidence of multiple interstitial infiltrates/edema I favor pulmonary edema since the patient is known to have history of mild LV dysfunction with ejection fraction of 45%, and now she has acute renal failure with possibly fluid overload. Underlying pneumonia is not entirely ruled out but felt to be less likely. Patient did have leukocytosis she also did have elevated BNP level, however her pro calcitonin is pending. Renal ultrasound done today, continues to show mild the left hydronephrosis similar to what she had on the last admission, and she had nonobstructive bilateral renal calculi with atrophic right kidney nephrology consultation is pending. In the meantime the patient was placed empirically on antibiotics in the form of Rocephin and Zithromax. Looking at previous urine cultures from the last admission, patient did have Enterococcus faecium/VRE positive cultures and the urine and previously she had history of ESBL Klebsiella pneumoniae infection in the urine considering this, the patient will need to be covered with daptomycin and will definitely arrange for consultation by infectious disease on the case. As the patient may have underlying urinary tract infection and urosepsis. The patient is seen today 10/04/2022 in follow-up in the intensive care unit. She is currently awake and alert. She is on BiPAP 12/5 and 60% FiO2 maintaining O2 saturations in the 90s. She is still requiring a Lasix drip currently at 5 mg per hour. Norepinephrine at 0.07 mcg/kg/m. Bicarb drip has been discontinued. Chest x-ray shows similar haziness in the left lung and right perihilar region with small bilateral pleural effusions. Cardiomegaly and suspected congestive heart failure versus pneumonia. White count 16.6. Hemoglobin 9.6. Platelet 147. Sodium 140. Potassium 3.2. Bicarb 23. BUN 40. Creatinine 3.58. Glucose 201. Pro calcitonin 4.67. ProBNP 12,000. Childress virus not detected. Urinalysis cloudy with large blood and large leukocytes HIDA be PVCs and occasional bacteria. She remains on cefepime, daptomycin, Diflucan. Continued on bronchodilators. The patient is seen today 10/05/2022 in follow-up in the intensive care unit. She is currently sitting up in bed. Awake and alert in no acute distress. She remains on 6 L high flow nasal cannula. She did utilize BiPAP last night 02/15 and 60% FiO2. She is continued on a Lasix drip at 5 mg per hour. Amiodarone at 0.5 mg/m. Norepinephrine at 0.03 mcg/kg/m. Chest x-ray reveals patchy perihilar and basilar infiltrates without significant change. Small pleural effusions. White count 15.8. Hemoglobin 9.3. Platelets 146. Sodium 138. Potassium 3.9. Bicarb 23. BUN 41. Creatinine 2.90. Glucose 136. She is continued on Diflucan, cefepime and daptomycin. Anticoagulated with Eliquis. The patient is seen today 10/06/2022 in follow-up in the intensive care unit. She is awake and alert. Confused at times. Sitting up in bed. Currently on 6 L high flow nasal cannula. She has not utilize the BiPAP. She had been in atrial fibrillation with rapid ventricular response. She's been initiated on amiodarone drip at 0.5 mg/m. She is continued on norepinephrine at 0.02 mcg/kg/m. Lasix drip at 5 mg per hour. Currently in a negative balance. Wound cultures positive for group D enterococcus, Cee albicans. Antibiotics in the form of cefepime, daptomycin, Eraxis. She remains anticoagulated with Eliquis. Globin 9.1. Platelets 176. Sodium 139. Potassium 3.7. Bicarb 22. BUN 39. Creatinine 2.43. Glucose 130. Objective - Vital Signs Vital signs: Vital Signs Temp 98.0 F 10/06/22 08:00 Pulse 85 10/06/22 10:55 Resp 20 10/06/22 10:15 BP 109/78 10/06/22 10:15 Pulse Ox 94 L 10/06/22 10:15 FiO2 60 10/06/22 04:00 Intake & Output 10/05/22 10/06/22 10/06/22 18:59 06:59 18:59 Intake Total 808.281 340.999 546.845 Output Total 825 1045 360 Balance -16.719 -704.001 186.845 Weight 74.6 kg 71 kg Intake: IV 15 lasix 15 Intake, IV Titration 558.281 340.999 531.845 Amount Amiodarone 450 mg In 218.893 Dextrose 5% in Water 250 ml @ 0.5 MG/MIN 16.667 mls/hr IV .Q15H [facility] Rx#: [id number] Amiodarone 450 mg In 250 Dextrose 5% in Water 250 ml @ 0.5 MG/MIN 16.667 mls/hr IV .Q15H [facility] Rx#: [id number] Anidulafungin 100 mg In 100 Sodium Chloride 0.9% 100 ml @ 84 mls/hr IVPB DAILY ALBERTO Rx#:[id number] Anidulafungin 200 mg In 200 Sodium Chloride 0.9% 200 ml @ 84 mls/hr IVPB ONCE ONE Rx#:[id number] Cefepime 1 gm In Sodium 50 50 Chloride 0.9% 50 ml @ 12. 5 mls/hr IVPB Q12HR ALBERTO Rx#:[id number] Furosemide 100 mg In 84.083 Sodium Chloride 0.9% 90 ml @ 5 MG/HR 5 mls/hr IV .Q20H [facility] Rx#:[id number] Norepinephrine 8 mg In 39.388 6.916 31.845 Sodium Chloride 0.9% 250 ml @ 0.03 MCG/KG/MIN 4.22 mls/hr IV .Q24H [facility] Rx#: [id number] Potassium Chloride 10 meq 200 In Water For Injection 1 100ml.bag @ 100 mls/hr IVPB Q1H [facility] Rx#: [id number] Potassium Chloride 10 meq 100 In Water For Injection 1 100ml.bag @ 100 mls/hr IVPB Q1H [facility] Rx#: [id number] Potassium Chloride 20 meq 100 In Water For Injection 1 100ml.bag @ 50 mls/hr IVPB ONCE [facility] Rx#: [id number] Oral 250 Output: Urine 825 1045 360 Other: Voiding Method Indwelling Catheter Indwelling Catheter Indwelling Catheter ABP, PAP, CO, CI - Last Documented Arterial Blood Pressure 120/51 - Exam GENERAL EXAM: Alert, confused at times 71-year-old female on 6 L high flow nasal cannula, in no apparent distress. HEAD: Normocephalic. EYES: Normal reaction of pupils, equal size. NOSE: Clear with pink turbinates. THROAT: No erythema or exudates. NECK: No masses, no JVD. CHEST: No chest wall deformity. LUNGS: Equal air entry with crackles at the bilateral bases. CVS: S1 and S2 normal with no audible murmur, regular rhythm. ABDOMEN: No hepatosplenomegaly, normal bowel sounds, no guarding or rigidity. SPINE: No scoliosis or deformity SKIN: No rashes CENTRAL NERVOUS SYSTEM: No focal deficits, tone is normal in all 4 extremities. EXTREMITIES: There is 1+ peripheral edema. No clubbing, no cyanosis. Peripheral pulses are intact. - Labs CBC & Chem 7: 10/06/22 04:30 10/06/22 04:30 Labs: Abnormal Lab Results - Last 24 Hours (Table) 10/05/22 10/05/22 10/05/22 Range/Units 11:50 18:32 21:00 WBC (3.8-10.6) k/uL RBC (3.80-5.40) m/uL Hgb (11.4-16.0) gm/dL Hct (34.0-46.0) % RDW (11.5-15.5) % Neutrophils # (1.3-7.7) k/uL BUN (7-17) mg/dL Creatinine (0.52-1.04) mg/dL Glucose (74-99) mg/dL POC Glucose (mg/dL) 148 H 153 H 145 H (70-110) mg/dL Calcium (8.4-10.2) mg/dL 10/05/22 10/06/22 10/06/22 Range/Units 23:33 04:30 04:30 WBC 18.3 H (3.8-10.6) k/uL RBC 3.04 L (3.80-5.40) m/uL Hgb 9.1 L (11.4-16.0) gm/dL Hct 28.6 L (34.0-46.0) % RDW 23.5 H (11.5-15.5) % Neutrophils # 15.9 H (1.3-7.7) k/uL BUN 39 H (7-17) mg/dL Creatinine 2.43 H (0.52-1.04) mg/dL Glucose 130 H (74-99) mg/dL POC Glucose (mg/dL) 168 H (70-110) mg/dL Calcium 7.2 L (8.4-10.2) mg/dL Microbiology - Last 24 Hours (Table) 10/03/22 11:50 Blood Culture - Preliminary Blood 10/03/22 23:20 Urine Culture - Final Urine,Voided 10/03/22 12:45 Gram Stain - Preliminary Groin Wound Culture - Preliminary Group D Enterococcus Cee albicans 10/03/22 11:35 Blood Culture Gram Stain - Preliminary Blood Assessment and Plan Assessment: Acute hypoxic respiratory failure suspect pulmonary edema secondary to an acute exacerbation of diastolic congestive heart failure Acute sepsis and septic shock, most likely source is wound of the groin, with group D enterococcus and cee epicondyles. Continued on Eraxis, cefepime, daptomycin Severe metabolic acidosis secondary to acute kidney injury Acute kidney injury secondary to hypotension Atrial fibrillation, currently on amiodarone drip, Eliquis History of chronic kidney disease stage III Benign essential hypertension Diabetic neuropathy History of bariatric surgery Plan: The patient was seen and evaluated Chest x-ray, labs and medications reviewed Continue bronchodilators, antibiotics Increase midodrine to 10 mg 3 times a day Lasix drip per nephrology Titrate down the norepinephrine as tolerated Titrate down the FiO2 as tolerated We will continue to follow I have personally seen and examined the patient, performed the documentation and the assessment and plan as written. Number of minutes spent on the visit: 10.
--- NOTE | 2022-10-06 11:21 | PN ---
PROGRESS NOTE SUBJECTIVE: Ms. Alamo is in atrial fib, rapid ventricular rate. She has a history of COPD exacerbation and new onset atrial fibrillation and also pneumonia, on antibiotics. OBJECTIVE: VITAL SIGNS: Blood pressure is about 94/60. The patient is on a small dose of Levophed. Heart rate is in the 130s, atrial fib. NECK: JVD 1 cm. No carotid bruit. HEART: S1, S2 heard with irregular rhythm. Short systolic murmur. LUNGS: Reveal diminished air entry. ABDOMEN: Unchanged. LOWER EXTREMITIES: Unchanged. PLAN: I am recommending that we restart IV amiodarone and continue pulmonary management. Prognosis remains guarded. MMODL / IJN: [id number] /
--- NOTE | 2022-10-06 11:36 | P.PN ---
Subjective Patient is seen in follow-up for acute kidney injury on chronic kidney disease. Renal function continues to improve. Nonoliguric. On Lasix drip. On Levophed. Sitting up in bed. Went into A. fib with RVR this morning and is maintained on amiodarone drip. Vital signs are stable. On vasopressor support. General: No acute distress. HEENT: Head exam is unremarkable. On nasal cannula. LUNGS: Scattered rhonchi. HEART: Rate and Rhythm are regular. ABDOMEN: Nontender. EXTREMITITES: 2+ edema. Objective - Vital Signs Vital signs: Vital Signs Temp 98.0 F 10/06/22 08:00 Pulse 85 10/06/22 11:06 Resp 20 10/06/22 10:15 BP 109/78 10/06/22 10:15 Pulse Ox 94 L 10/06/22 10:15 FiO2 60 10/06/22 04:00 Intake & Output 10/05/22 10/06/22 10/06/22 18:59 06:59 18:59 Intake Total 808.281 340.999 554.677 Output Total 825 1045 360 Balance -16.719 -704.001 194.677 Weight 74.6 kg 71 kg Intake: IV 15 lasix 15 Intake, IV Titration 558.281 340.999 539.677 Amount Amiodarone 450 mg In 218.893 Dextrose 5% in Water 250 ml @ 0.5 MG/MIN 16.667 mls/hr IV .Q15H [facility] Rx#: [id number] Amiodarone 450 mg In 250 Dextrose 5% in Water 250 ml @ 0.5 MG/MIN 16.667 mls/hr IV .Q15H [facility] Rx#: [id number] Anidulafungin 100 mg In 100 Sodium Chloride 0.9% 100 ml @ 84 mls/hr IVPB DAILY [facility] Rx#:[id number] Anidulafungin 200 mg In 200 Sodium Chloride 0.9% 200 ml @ 84 mls/hr IVPB ONCE ONE Rx#:[id number] Cefepime 1 gm In Sodium 50 50 Chloride 0.9% 50 ml @ 12. 5 mls/hr IVPB Q12HR [facility] Rx#:[id number] Furosemide 100 mg In 84.083 Sodium Chloride 0.9% 90 ml @ 5 MG/HR 5 mls/hr IV .Q20H [facility] Rx#:[id number] Norepinephrine 8 mg In 39.388 6.916 39.677 Sodium Chloride 0.9% 250 ml @ 0.03 MCG/KG/MIN 4.22 mls/hr IV .Q24H [facility] Rx#: [id number] Potassium Chloride 10 meq 200 In Water For Injection 1 100ml.bag @ 100 mls/hr IVPB Q1H [facility] Rx#: [id number] Potassium Chloride 10 meq 100 In Water For Injection 1 100ml.bag @ 100 mls/hr IVPB Q1H [facility] Rx#: [id number] Potassium Chloride 20 meq 100 In Water For Injection 1 100ml.bag @ 50 mls/hr IVPB ONCE [facility] Rx#: [id number] Oral 250 Output: Urine 825 1045 360 Other: Voiding Method Indwelling Catheter Indwelling Catheter Indwelling Catheter ABP, PAP, CO, CI - Last Documented Arterial Blood Pressure 120/51 - Labs CBC & Chem 7: 10/06/22 04:30 10/06/22 04:30 Labs: Abnormal Lab Results - Last 24 Hours (Table) 10/05/22 10/05/22 10/05/22 Range/Units 11:50 18:32 21:00 WBC (3.8-10.6) k/uL RBC (3.80-5.40) m/uL Hgb (11.4-16.0) gm/dL Hct (34.0-46.0) % RDW (11.5-15.5) % Neutrophils # (1.3-7.7) k/uL BUN (7-17) mg/dL Creatinine (0.52-1.04) mg/dL Glucose (74-99) mg/dL POC Glucose (mg/dL) 148 H 153 H 145 H (70-110) mg/dL Calcium (8.4-10.2) mg/dL 10/05/22 10/06/22 10/06/22 Range/Units 23:33 04:30 04:30 WBC 18.3 H (3.8-10.6) k/uL RBC 3.04 L (3.80-5.40) m/uL Hgb 9.1 L (11.4-16.0) gm/dL Hct 28.6 L (34.0-46.0) % RDW 23.5 H (11.5-15.5) % Neutrophils # 15.9 H (1.3-7.7) k/uL BUN 39 H (7-17) mg/dL Creatinine 2.43 H (0.52-1.04) mg/dL Glucose 130 H (74-99) mg/dL POC Glucose (mg/dL) 168 H (70-110) mg/dL Calcium 7.2 L (8.4-10.2) mg/dL Microbiology - Last 24 Hours (Table) 10/03/22 11:50 Blood Culture - Preliminary Blood 10/03/22 23:20 Urine Culture - Final Urine,Voided 10/03/22 12:45 Gram Stain - Preliminary Groin Wound Culture - Preliminary Group D Enterococcus Cee albicans 10/03/22 11:35 Blood Culture Gram Stain - Preliminary Blood Assessment and Plan Plan: Assessment: 1. Acute kidney injury secondary to ATN secondary to cardiorenal syndrome. Creatinine 4.8 on admission and is 2.43 today. 2. Chronic kidney disease stage III with baseline creatinine 1.1-1.3 secondary to obstructive uropathy. 3. Hypokalemia from diuresis. Being replaced. 4. Metabolic acidosis secondary to acute kidney injury s/p bicarb drip. 5. Acute hypoxic respiratory failure. 6. Volume overload. Improving with diuresis. 7. Shock maintained on Levophed. ?septic. Groin wound culture positive for group D enterococcus and Cee. ID following. 8. A. fib with RVR maintain on amiodarone drip. Plan: Maintain Lasix drip. Wean vasopressors. Maintain midodrine. Hold for systolic blood pressure greater than 110. Avoid nephrotoxins. Continue to monitor renal function and urine output. Check cortisol level.
[2022-10-06 11:43] LABS: Glucose,Whole Blood 186 mg/dL (70-110)
[2022-10-06] MEDS: FAMOTIDINE 20 MG/2 ML VIAL IV SCH (21:26)
[2022-10-07 01:13] LABS: Glucose,Whole Blood 164 mg/dL (70-110)
[2022-10-07] MEDS ORDERED: HYDROmorphone 0.5 MG/0.5 ML SYRINGE IVP STA ×2 (05:47→05:54)
[2022-10-07] MEDS: POTASSIUM CHLORIDE 20 MEQ in WATER FOR INJECTION 1 100ML.BAG IVPB SCH ×2 (05:55→12:05)
[2022-10-07] MEDS ORDERED: LORazepam 2 MG/ML INJ ONE (06:26)
[2022-10-07] MEDS: LORazepam 2 MG/ML INJ IV PRN ×4 (06:32→22:04)
[2022-10-07 07:13] LABS: Glucose,Whole Blood 168 mg/dL (70-110)
[2022-10-07 07:20] LABS: Anisocytosis Moderate; Basophils % (A) 0 %; Eosinophils # (A) 0.1 k/uL (0-0.7); Eosinophils % (A) 0 %; HCT 30.1 % (34.0-46.0); HGB 9.4 gm/dL (11.4-16.0); Hypochromasia Moderate; Lymphocytes # (A) 1.1 k/uL (1.0-4.8); Lymphocytes % (A) 4 %; MCH 29.3 pg (25.0-35.0); MCV 94.3 fL (80.0-100.0); Macrocytosis Moderate; Mean Platelet Volume 10.4; Monocytes # (A) 0.5 k/uL (0-1.0); Monocytes % (A) 2 %; Neutrophils # (A) 23.3 k/uL (1.3-7.7); Neutrophils % (A) 93 %; Platelet Count 187 k/uL (150-450); RDW 23.9 % (11.5-15.5); WBC 25.2 k/uL (3.8-10.6)
[2022-10-07 07:28] LABS: African American GFR (CKD) 29 (>60 ml/min/1.73 sqM); Anion Gap 11 mmol/L; Blood Urea Nitrogen 39 mg/dL (7-17); Carbon Dioxide 24 mmol/L (22-30); Chloride 105 mmol/L (98-107); Glucose 160 mg/dL (74-99); Non-African American GFR(CKD) 25 (>60 ml/min/1.73 sqM); Potassium 3.5 mmol/L (3.5-5.1); Sodium 140 mmol/L (137-145)
[2022-10-07 08:43] LABS: ABG HCO3 27 mmol/L (21-25); ABG Oxygen Saturation 94.4 % (94-97); ABG PCO2 48 mmHg (35-45); ABG PH 7.35 (7.35-7.45); ABG PO2 78 mmHg (83-108); ABG TCO2 28 mmol/L (19-24)
[2022-10-07] MEDS: IPRATROPIUM-ALBUTEROL 3 ML NEB INHALATION SCH ×4 (08:57→19:42)
--- NOTE | 2022-10-07 09:57 | XR ---
EXAMINATION TYPE: XR chest 1V portable DATE OF EXAM: 10/07/2022 Comparison: 10/06/2022 Clinical History: 71 year-old female shortness of breath, dyspnea Findings: Heart borderline to mildly enlarged. Since shifting interstitial and patchy opacity is now greater al rupal the left side of the lung and right lower lung. At least a small pleural effusion is present on t he right. Overall low lung volumes. Impression: Hypoventilatory changes with ongoing patchy pulmonary edema. There have been some shifting opacities in the interval but overall similar to prior. Continued small right pleural effusion with adjacent at electasis and/or consolidation.
--- NOTE | 2022-10-07 10:24 | P.PN ---
Subjective Progress Note Date: 10/07/22 This is a 71-year-old female with history of multiple medical problems including type 2 diabetes, hypertension, diabetic neuropathy, migraine cephalgia, COPD, patient was recently in the hospital with nephrolithiasis, and hydronephrosis. She was seen by urology on consultation, and no surgical intervention was felt to be necessary for her nephrolithiasis or mild hydronephrosis. Patient was treated conservatively, she was discharged home on the . Patient was brought into the ER today complaining of shortness of breath and mental status change. Apparently upon arrival to the ER, the patient was in respiratory distress, she was also confused, patient was placed on BiPAP. Her initial ABG on arrival showed a pO2 of 74 pCO2 42 pH of 7.07 consistent with severe metabolic acidosis. Her bicarb was only 12. BUN is 41 and creatinine 4.80 however her creatinine was in the range of 1.30 just a few days ago. Obviously the patient had developed worsening renal failure, severe metabolic acidosis secondary to her renal failure, and her chest x-ray showed evidence of multiple interstitial infiltrates/edema I favor pulmonary edema since the patient is known to have history of mild LV dysfunction with ejection fraction of 45%, and now she has acute renal failure with possibly fluid overload. Underlying pneumonia is not entirely ruled out but felt to be less likely. Patient did have leukocytosis she also did have elevated BNP level, however her pro calcitonin is pending. Renal ultrasound done today, continues to show mild the left hydronephrosis similar to what she had on the last admission, and she had nonobstructive bilateral renal calculi with atrophic right kidney nephrology consultation is pending. In the meantime the patient was placed empirically on antibiotics in the form of Rocephin and Zithromax. Looking at previous urine cultures from the last admission, patient did have Enterococcus faecium/VRE positive cultures and the urine and previously she had history of ESBL Klebsiella pneumoniae infection in the urine considering this, the patient will need to be covered with daptomycin and will definitely arrange for consultation by infectious disease on the case. As the patient may have underlying urinary tract infection and urosepsis. The patient is seen today 10/04/2022 in follow-up in the intensive care unit. She is currently awake and alert. She is on BiPAP 12/5 and 60% FiO2 maintaining O2 saturations in the 90s. She is still requiring a Lasix drip currently at 5 mg per hour. Norepinephrine at 0.07 mcg/kg/m. Bicarb drip has been discontinued. Chest x-ray shows similar haziness in the left lung and right perihilar region with small bilateral pleural effusions. Cardiomegaly and suspected congestive heart failure versus pneumonia. White count 16.6. Hemoglobin 9.6. Platelet 147. Sodium 140. Potassium 3.2. Bicarb 23. BUN 40. Creatinine 3.58. Glucose 201. Pro calcitonin 4.67. ProBNP 12,000. Childress virus not detected. Urinalysis cloudy with large blood and large leukocytes HIDA be PVCs and occasional bacteria. She remains on cefepime, daptomycin, Diflucan. Continued on bronchodilators. The patient is seen today 10/05/2022 in follow-up in the intensive care unit. She is currently sitting up in bed. Awake and alert in no acute distress. She remains on 6 L high flow nasal cannula. She did utilize BiPAP last night 02/15 and 60% FiO2. She is continued on a Lasix drip at 5 mg per hour. Amiodarone at 0.5 mg/m. Norepinephrine at 0.03 mcg/kg/m. Chest x-ray reveals patchy perihilar and basilar infiltrates without significant change. Small pleural effusions. White count 15.8. Hemoglobin 9.3. Platelets 146. Sodium 138. Potassium 3.9. Bicarb 23. BUN 41. Creatinine 2.90. Glucose 136. She is continued on Diflucan, cefepime and daptomycin. Anticoagulated with Eliquis. The patient is seen today 10/06/2022 in follow-up in the intensive care unit. She is awake and alert. Confused at times. Sitting up in bed. Currently on 6 L high flow nasal cannula. She has not utilize the BiPAP. She had been in atrial fibrillation with rapid ventricular response. She's been initiated on amiodarone drip at 0.5 mg/m. She is continued on norepinephrine at 0.02 mcg/kg/m. Lasix drip at 5 mg per hour. Currently in a negative balance. Wound cultures positive for group D enterococcus, Cee albicans. Antibiotics in the form of cefepime, daptomycin, Eraxis. She remains anticoagulated with Eliquis. Globin 9.1. Platelets 176. Sodium 139. Potassium 3.7. Bicarb 22. BUN 39. Creatinine 2.43. Glucose 130. Patient is seen today 10/07/2022 in follow-up in the intensive care unit. She is currently on BiPAP 12/5 and 100% FiO2 to maintain O2 saturations in the 90s. Arterial blood gases revealed a PaO2 of 78, pCO2 48 and a pH of 7.35. She remains on norepinephrine at 4 mcg/m. Lasix drip at 5 mg per hour. Amiodarone drip at 0.5 mg/m. Normal saline at KVO. She remains on antibiotics in the form of vancomycin, cefepime and Eraxis. She is receiving DuoNeb inhalations every 4 hours. She is anticoagulated with Eliquis. Wound cultures from the groin are positive for enterococcus faecium VRE and Cee. Blood cultures are positive for Cee. Urine culture revealed no growth. Follow-up blood culture pending. White count 25.2. Hemoglobin 9.4. Platelets 187. Sodium 140. Potassium 3.5. Bicarb 24. BUN 39. Creatinine 1.96. Glucose 160. Chest x-ray continues to show hypoventilatory changes with ongoing patchy pulmonary edema. Continued small right pleural effusion with adjacent atelectasis. Objective - Vital Signs Vital signs: Vital Signs Temp 97.9 F 10/07/22 04:00 Pulse 106 H 10/07/22 09:10 Resp 22 10/07/22 09:10 BP 126/47 10/07/22 09:00 Pulse Ox 93 L 10/07/22 09:00 FiO2 100 10/07/22 08:43 Intake & Output 10/06/22 10/07/22 10/07/22 18:59 06:59 18:59 Intake Total 760.444 517.609 15 Output Total 1320 1910 Balance -559.556 -1392.391 15 Weight 70.4 kg Intake: IV 215 265 15 0.9 KVO 50 110 10 Potassium Chloride 10 meq 100 100 In Water For Injection 1 100ml.bag @ 100 mls/hr IVPB Q1H [facility] Rx#: [id number] lasix 65 55 5 Intake, IV Titration 545.444 252.609 Amount Amiodarone 450 mg In 250 201.671 Dextrose 5% in Water 250 ml @ 0.5 MG/MIN 16.667 mls/hr IV .Q15H [facility] Rx#: [id number] Anidulafungin 100 mg In 100 Sodium Chloride 0.9% 100 ml @ 84 mls/hr IVPB DAILY [facility] Rx#:[id number] Cefepime 1 gm In Sodium 50 50 Chloride 0.9% 50 ml @ 12. 5 mls/hr IVPB Q12HR [facility] Rx#:[id number] Norepinephrine 8 mg In 45.444 0.938 Sodium Chloride 0.9% 250 ml @ 0.03 MCG/KG/MIN 4.22 mls/hr IV .Q24H [facility] Rx#: [id number] Potassium Chloride 10 meq 100 In Water For Injection 1 100ml.bag @ 100 mls/hr IVPB Q1H [facility] Rx#: [id number] Output: Urine 1320 1910 Other: Voiding Method Indwelling Catheter Indwelling Catheter ABP, PAP, CO, CI - Last Documented Arterial Blood Pressure 159/73 - Exam GENERAL EXAM: Arousable, confused 71-year-old female on BiPAP 12/5 with 100% FiO2, in no apparent distress. HEAD: Normocephalic. EYES: Normal reaction of pupils, equal size. NOSE: Clear with pink turbinates. THROAT: No erythema or exudates. NECK: No masses, no JVD. CHEST: No chest wall deformity. LUNGS: Equal air entry with crackles at the bilateral bases. CVS: S1 and S2 normal with no audible murmur, regular rhythm. ABDOMEN: No hepatosplenomegaly, normal bowel sounds, no guarding or rigidity. SPINE: No scoliosis or deformity SKIN: No rashes CENTRAL NERVOUS SYSTEM: No focal deficits, tone is normal in all 4 extremities. EXTREMITIES: There is 1+ peripheral edema. No clubbing, no cyanosis. Peripheral pulses are intact. - Labs CBC & Chem 7: 10/07/22 07:00 10/07/22 07:00 Labs: Abnormal Lab Results - Last 24 Hours (Table) 10/06/22 10/07/22 10/07/22 Range/Units 11:42 01:00 01:11 WBC (3.8-10.6) k/uL RBC (3.80-5.40) m/uL Hgb (11.4-16.0) gm/dL Hct (34.0-46.0) % RDW (11.5-15.5) % Neutrophils # (1.3-7.7) k/uL ABG pCO2 (35-45) mmHg ABG pO2 (83-108) mmHg ABG HCO3 (21-25) mmol/L ABG Total CO2 (19-24) mmol/L Potassium 3.4 L (3.5-5.1) mmol/L BUN (7-17) mg/dL Creatinine (0.52-1.04) mg/dL Glucose (74-99) mg/dL POC Glucose (mg/dL) 186 H 164 H (70-110) mg/dL Calcium (8.4-10.2) mg/dL 10/07/22 10/07/22 10/07/22 Range/Units 07:00 07:00 07:12 WBC 25.2 H (3.8-10.6) k/uL RBC 3.20 L (3.80-5.40) m/uL Hgb 9.4 L (11.4-16.0) gm/dL Hct 30.1 L (34.0-46.0) % RDW 23.9 H (11.5-15.5) % Neutrophils # 23.3 H (1.3-7.7) k/uL ABG pCO2 (35-45) mmHg ABG pO2 (83-108) mmHg ABG HCO3 (21-25) mmol/L ABG Total CO2 (19-24) mmol/L Potassium (3.5-5.1) mmol/L BUN 39 H (7-17) mg/dL Creatinine 1.96 H (0.52-1.04) mg/dL Glucose 160 H (74-99) mg/dL POC Glucose (mg/dL) 168 H (70-110) mg/dL Calcium 7.0 L (8.4-10.2) mg/dL 10/07/22 Range/Units 08:41 WBC (3.8-10.6) k/uL RBC (3.80-5.40) m/uL Hgb (11.4-16.0) gm/dL Hct (34.0-46.0) % RDW (11.5-15.5) % Neutrophils # (1.3-7.7) k/uL ABG pCO2 48 H (35-45) mmHg ABG pO2 78 L (83-108) mmHg ABG HCO3 27 H (21-25) mmol/L ABG Total CO2 28 H (19-24) mmol/L Potassium (3.5-5.1) mmol/L BUN (7-17) mg/dL Creatinine (0.52-1.04) mg/dL Glucose (74-99) mg/dL POC Glucose (mg/dL) (70-110) mg/dL Calcium (8.4-10.2) mg/dL Microbiology - Last 24 Hours (Table) 10/05/22 15:55 Blood Culture - Preliminary Blood 10/03/22 11:50 Blood Culture Gram Stain - Final Blood Blood Culture - Final Cee albicans 10/03/22 11:35 Blood Culture Gram Stain - Final Blood Blood Culture - Final Cee albicans 10/03/22 12:45 Gram Stain - Final Groin Wound Culture - Final Enterococcus faecium VRE Cee albicans Assessment and Plan Assessment: Acute hypoxic respiratory failure secondary to pulmonary edema from an acute exacerbation of diastolic congestive heart failure Acute sepsis and septic shock, most likely source is wound of the groin, with enterococcus fasecium VRE and cee albicans. Continued on Eraxis, cefepime, vancomycin Severe metabolic acidosis secondary to acute kidney injury Acute kidney injury secondary to hypotension Atrial fibrillation, currently on amiodarone drip, Eliquis History of chronic kidney disease stage III Benign essential hypertension Diabetic neuropathy History of bariatric surgery Plan: The patient was seen and evaluated Chest x-ray, labs and medications reviewed Continue bronchodilators, antibiotics Lasix drip per nephrology Titrate down the norepinephrine as tolerated Titrate down the FiO2 as tolerated Dr. Boyd spoke to the patient's sister at length She has spoken with the patient's is well DO NOT RESUSCITATE/DO NOT INTUBATE CODE STATUS We will continue to follow I have personally seen and examined the patient, performed the documentation and the assessment and plan as written. Number of minutes spent on the visit: 10.
[2022-10-07] MEDS: FUROSEMIDE 100 MG in SODIUM CHLORIDE 0.9% 90 ML IV SCH ×3 (10:30→22:44)
[2022-10-07 11:05] VITALS: BMI 29.3
--- NOTE | 2022-10-07 11:51 | P.PN ---
Subjective Patient is seen in follow-up for acute kidney injury on chronic kidney disease. Renal function continues to improve. Nonoliguric. On Lasix drip. Off Levophed. On BiPAP. On amiodarone drip for A. fib. Family present at bedside. Vital signs are stable. General: Resting in bed. HEENT: Head exam is unremarkable. On BiPAP. LUNGS: Scattered rhonchi. HEART: Rate and Rhythm are regular. ABDOMEN: Nontender. EXTREMITITES: 2+ edema. Objective - Vital Signs Vital signs: Vital Signs Temp 97.9 F 10/07/22 04:00 Pulse 107 H 10/07/22 11:37 Resp 22 10/07/22 11:37 BP 126/47 10/07/22 09:00 Pulse Ox 93 L 10/07/22 09:00 FiO2 100 10/07/22 11:25 Intake & Output 10/06/22 10/07/22 10/07/22 18:59 06:59 18:59 Intake Total 760.444 517.609 60 Output Total 1320 1910 235 Balance -559.556 -1392.391 -175 Weight 70.4 kg 70.4 kg Intake: IV 215 265 60 0.9 KVO 50 110 40 Potassium Chloride 10 meq 100 100 In Water For Injection 1 100ml.bag @ 100 mls/hr IVPB Q1H [facility] Rx#: [id number] lasix 65 55 20 Intake, IV Titration 545.444 252.609 Amount Amiodarone 450 mg In 250 201.671 Dextrose 5% in Water 250 ml @ 0.5 MG/MIN 16.667 mls/hr IV .Q15H [facility] Rx#: [id number] Anidulafungin 100 mg In 100 Sodium Chloride 0.9% 100 ml @ 84 mls/hr IVPB DAILY [facility] Rx#:[id number] Cefepime 1 gm In Sodium 50 50 Chloride 0.9% 50 ml @ 12. 5 mls/hr IVPB Q12HR [facility] Rx#:[id number] Norepinephrine 8 mg In 45.444 0.938 Sodium Chloride 0.9% 250 ml @ 0.03 MCG/KG/MIN 4.22 mls/hr IV .Q24H [facility] Rx#: [id number] Potassium Chloride 10 meq 100 In Water For Injection 1 100ml.bag @ 100 mls/hr IVPB Q1H [facility] Rx#: [id number] Output: Urine 1320 1910 235 Other: Voiding Method Indwelling Catheter Indwelling Catheter ABP, PAP, CO, CI - Last Documented Arterial Blood Pressure 159/73 - Labs CBC & Chem 7: 10/07/22 07:00 10/07/22 07:00 Labs: Abnormal Lab Results - Last 24 Hours (Table) 10/07/22 10/07/22 10/07/22 Range/Units 01:00 01:11 07:00 WBC 25.2 H (3.8-10.6) k/uL RBC 3.20 L (3.80-5.40) m/uL Hgb 9.4 L (11.4-16.0) gm/dL Hct 30.1 L (34.0-46.0) % RDW 23.9 H (11.5-15.5) % Neutrophils # 23.3 H (1.3-7.7) k/uL ABG pCO2 (35-45) mmHg ABG pO2 (83-108) mmHg ABG HCO3 (21-25) mmol/L ABG Total CO2 (19-24) mmol/L Potassium 3.4 L (3.5-5.1) mmol/L BUN (7-17) mg/dL Creatinine (0.52-1.04) mg/dL Glucose (74-99) mg/dL POC Glucose (mg/dL) 164 H (70-110) mg/dL Calcium (8.4-10.2) mg/dL 10/07/22 10/07/22 10/07/22 Range/Units 07:00 07:12 08:41 WBC (3.8-10.6) k/uL RBC (3.80-5.40) m/uL Hgb (11.4-16.0) gm/dL Hct (34.0-46.0) % RDW (11.5-15.5) % Neutrophils # (1.3-7.7) k/uL ABG pCO2 48 H (35-45) mmHg ABG pO2 78 L (83-108) mmHg ABG HCO3 27 H (21-25) mmol/L ABG Total CO2 28 H (19-24) mmol/L Potassium (3.5-5.1) mmol/L BUN 39 H (7-17) mg/dL Creatinine 1.96 H (0.52-1.04) mg/dL Glucose 160 H (74-99) mg/dL POC Glucose (mg/dL) 168 H (70-110) mg/dL Calcium 7.0 L (8.4-10.2) mg/dL Microbiology - Last 24 Hours (Table) 10/05/22 15:55 Blood Culture - Preliminary Blood 10/03/22 11:50 Blood Culture Gram Stain - Final Blood Blood Culture - Final Cee albicans 10/03/22 11:35 Blood Culture Gram Stain - Final Blood Blood Culture - Final Cee albicans 10/03/22 12:45 Gram Stain - Final Groin Wound Culture - Final Enterococcus faecium VRE Cee albicans Assessment and Plan Plan: Assessment: 1. Acute kidney injury secondary to ATN secondary to cardiorenal syndrome. Creatinine 4.8 on admission and is 1.96 today. 2. Chronic kidney disease stage IIIaa with baseline creatinine 1.1-1.3 secondary to obstructive uropathy. 3. Hypokalemia from diuresis. Being replaced. 4. Metabolic acidosis secondary to acute kidney injury s/p bicarb drip. Better. 5. Acute hypoxic respiratory failure. 6. Volume overload. 7. Shock d/p Levophed. ?septic. Groin wound culture positive for group D enterococcus and Cee. ID following. 8. A. fib with RVR maintain on amiodarone drip. Plan: Maintain Lasix drip -increase rate to 10 mL an hour. Unable to take oral medications at this time. Maintain midodrine. Hold for systolic blood pressure greater than 110. Avoid nephrotoxins. Continue to monitor renal function and urine output. Cortisol level not low. Discussed with family doing renal replacement therapy mostly for ultrafiltration due to severe volume overload. Family unsure if they want to proceed with renal replacement therapy at this time. Comfort measures being considered.
[2022-10-07 12:07] LABS: Glucose,Whole Blood 159 mg/dL (70-110)
[2022-10-07] MEDS: ANIDULAFUNGIN 100 MG in SODIUM CHLORIDE 0.9% 100 ML IVPB SCH (12:08)
[2022-10-07] MEDS: PANTOPRAZOLE 40 MG/10 ML VIAL IV SCH (12:10)
[2022-10-07] MEDS: CEFEPIME 1 GM in SODIUM CHLORIDE 0.9% 50 ML IVPB SCH ×2 (12:12→22:42)
[2022-10-07] MEDS: NOREPINEPHRINE 8 MG in SODIUM CHLORIDE 0.9% 250 ML IV SCH (12:14)
[2022-10-07] MEDS: HYDROmorphone 1 MG/ML 1 ML SYRINGE IVP PRN ×3 (13:42→23:56)
--- NOTE | 2022-10-07 13:48 | PN ---
PROGRESS NOTE SUBJECTIVE: Ms. Cheo Alamo has pneumonia, COPD exacerbation, and new-onset atrial fibrillation. She is back in sinus rhythm, hemodynamically stable. She is off the Levophed. However, she is not swallowing. We will, therefore, not give any oral medications, but if she goes into atrial fibrillation, I will recommend Cardizem IV to be given. She is resting comfortably, but on a BiPAP. OBJECTIVE: HEART: S1 and S2 heard normally. Regular rhythm. Short systolic murmur. LUNGS: Reveal fairly decent air entry. ABDOMEN: Soft. EXTREMITIES: Lower extremities reveal diminished pulses. Mild edema bilaterally. CENTRAL NERVOUS SYSTEM: Grossly within normal limits. MMODL / IJN: [id number] /
--- NOTE | 2022-10-07 14:10 | PN ---
PROGRESS NOTE DATE OF SERVICE: 10/07/2022 SUBJECTIVE: This is a 71-year-old woman who was admitted with UTI and sepsis, on mechanical ventilation. The patient is closely monitored in ICU. The cultures are showing Cee and as well as wound culture also showed Enterococcus faecium. The patient is on antifungal also. White count is 25.2. PAST MEDICAL HISTORY: Reviewed. REVIEW OF SYSTEMS: Could not be taken. CURRENT MEDICATIONS: Reviewed include Eliquis and Eraxis. PHYSICAL EXAMINATION: VITAL SIGNS: Pulse is 117, blood pressure n HEENT: Conjunctivae normal. NECK: No JVD. CARDIOVASCULAR: S1, S2. RESPIRATIONS: Diffuse scattered rhonchi. ABDOMEN: Soft. NERVOUS SYSTEM: Sedated. Vent settings are noted. LABORATORY DATA: Reviewed. ASSESSMENT: 1. Acute urinary tract infection with sepsis. 2. Cee albicans sepsis. 3. Congestive heart failure, acute exacerbation with acute on chronic diastolic dysfunction, ejection fraction of 55% to 60%. 4. Acute hypoxic respiratory failure, on mechanical ventilation. 5. Acute kidney injury with acute on chronic kidney disease, baseline stage 3. 6. Diabetes mellitus, type 2. 7. Hypertension. 8. History of polyneuropathy. 9. History of bariatric surgery. RECOMMENDATIONS: Recommended to continue current symptomatic treatment. Otherwise, at this time recommend to continue with the antibiotics. Closely follow with multiple consultants. PROGNOSIS: Guarded. further recommendations to follow. MMODL / IJN: [id number] / MTDD
[2022-10-07] MEDS: MIDODRINE 5 MG TAB PO SCH ×2 (17:32→17:33)
[2022-10-07] MEDS: APIXABAN 2.5 MG TABLET PO SCH ×2 (17:32→20:23)
[2022-10-07] MEDS: buPROPion 75 MG TAB PO SCH (17:32)
[2022-10-07 17:53] LABS: Glucose,Whole Blood 156 mg/dL (70-110)
[2022-10-07] MEDS: DAPTOmycin 500 MG in SODIUM CHLORIDE 0.9% 50 ML IVPB SCH (18:25)
[2022-10-07] MEDS ORDERED: AMIODARONE 450 MG in DEXTROSE 5% IN WATER 250 ML IV SCH ×2 (18:45)
[2022-10-07] MEDS: AMIODARONE 450 MG in DEXTROSE 5% IN WATER 250 ML IV SCH ×2 (19:12)
[2022-10-07] MEDS: DILTIAZEM 125 MG in SODIUM CHLORIDE 0.9% 100 ML IV SCH ×2 (19:14→19:22)
[2022-10-07] MEDS: LIDOCAINE 5% PATCH TOPICAL SCH (19:21)
[2022-10-07] MEDS ORDERED: FUROSEMIDE 10 MG/ML 10 ML VIAL IV STA (21:17)
--- NOTE | 2022-10-07 22:39 | P.PN ---
Subjective Progress Note Date: 10/06/22 Principal diagnosis: Sepsis and UTI Patient is a 71-year-old female with a past medical history negative for recurrent urinary tract infection, presented to hospital with weakness and mental status changes and respiratory distress patient was found to be septic likely from urinary source and admitted to ICU requiring BiPAP. On today's evaluation that is 10/06/2022, the patient continues to be afebrile, patient is breathing comfortably on nasal cannula oxygen denies any chest pain occasional cough no abdominal pain no vomiting or diarrhea has been reported Objective - Vital Signs Vital signs: Vital Signs Temp 98.1 F 10/06/22 12:00 Pulse 98 10/06/22 12:15 Resp 18 10/06/22 12:15 BP 114/72 10/06/22 12:15 Pulse Ox 93 L 10/06/22 12:15 FiO2 60 10/06/22 04:00 Intake & Output 10/05/22 10/06/22 10/06/22 18:59 06:59 18:59 Intake Total 808.281 340.999 564.677 Output Total 825 1045 600 Balance -16.719 -704.001 -35.323 Weight 74.6 kg 71 kg Intake: IV 25 lasix 25 Intake, IV Titration 558.281 340.999 539.677 Amount Amiodarone 450 mg In 218.893 Dextrose 5% in Water 250 ml @ 0.5 MG/MIN 16.667 mls/hr IV .Q15H [facility] Rx#: [id number] Amiodarone 450 mg In 250 Dextrose 5% in Water 250 ml @ 0.5 MG/MIN 16.667 mls/hr IV .Q15H [facility] Rx#: [id number] Anidulafungin 100 mg In 100 Sodium Chloride 0.9% 100 ml @ 84 mls/hr IVPB DAILY [facility] Rx#:[id number] Anidulafungin 200 mg In 200 Sodium Chloride 0.9% 200 ml @ 84 mls/hr IVPB ONCE ONE Rx#:[id number] Cefepime 1 gm In Sodium 50 50 Chloride 0.9% 50 ml @ 12. 5 mls/hr IVPB Q12HR [facility] Rx#:[id number] Furosemide 100 mg In 84.083 Sodium Chloride 0.9% 90 ml @ 5 MG/HR 5 mls/hr IV .Q20H [facility] Rx#:[id number] Norepinephrine 8 mg In 39.388 6.916 39.677 Sodium Chloride 0.9% 250 ml @ 0.03 MCG/KG/MIN 4.22 mls/hr IV .Q24H [facility] Rx#: [id number] Potassium Chloride 10 meq 200 In Water For Injection 1 100ml.bag @ 100 mls/hr IVPB Q1H [facility] Rx#: [id number] Potassium Chloride 10 meq 100 In Water For Injection 1 100ml.bag @ 100 mls/hr IVPB Q1H [facility] Rx#: [id number] Potassium Chloride 20 meq 100 In Water For Injection 1 100ml.bag @ 50 mls/hr IVPB ONCE [facility] Rx#: [id number] Oral 250 Output: Urine 825 1045 600 Other: Voiding Method Indwelling Catheter Indwelling Catheter Indwelling Catheter ABP, PAP, CO, CI - Last Documented Arterial Blood Pressure 135/59 - Exam GENERAL DESCRIPTION: An elderly female lying in bed in no distress RESPIRATORY SYSTEM: Unlabored breathing , decreased breath sounds at bases HEART: S1 S2 regular rate and rhythm , ABDOMEN: Soft , no tenderness EXTREMITIES: No edema feet - Labs CBC & Chem 7: 10/07/22 07:00 10/07/22 16:48 Labs: Abnormal Lab Results - Last 24 Hours (Table) 10/05/22 10/05/22 10/05/22 Range/Units 18:32 21:00 23:33 WBC (3.8-10.6) k/uL RBC (3.80-5.40) m/uL Hgb (11.4-16.0) gm/dL Hct (34.0-46.0) % RDW (11.5-15.5) % Neutrophils # (1.3-7.7) k/uL BUN (7-17) mg/dL Creatinine (0.52-1.04) mg/dL Glucose (74-99) mg/dL POC Glucose (mg/dL) 153 H 145 H 168 H (70-110) mg/dL Calcium (8.4-10.2) mg/dL 10/06/22 10/06/22 10/06/22 Range/Units 04:30 04:30 11:42 WBC 18.3 H (3.8-10.6) k/uL RBC 3.04 L (3.80-5.40) m/uL Hgb 9.1 L (11.4-16.0) gm/dL Hct 28.6 L (34.0-46.0) % RDW 23.5 H (11.5-15.5) % Neutrophils # 15.9 H (1.3-7.7) k/uL BUN 39 H (7-17) mg/dL Creatinine 2.43 H (0.52-1.04) mg/dL Glucose 130 H (74-99) mg/dL POC Glucose (mg/dL) 186 H (70-110) mg/dL Calcium 7.2 L (8.4-10.2) mg/dL Microbiology - Last 24 Hours (Table) 10/03/22 12:45 Gram Stain - Final Groin Wound Culture - Final Enterococcus faecium VRE Cee albicans 10/03/22 11:50 Blood Culture - Preliminary Blood 10/03/22 23:20 Urine Culture - Final Urine,Voided 10/03/22 11:35 Blood Culture Gram Stain - Preliminary Blood Assessment and Plan (1) Sepsis Current Visit: No Status: Acute Code(s): A41.9 - SEPSIS, UNSPECIFIED ORGANISM SNOMED Code(s): 18884233 (2) UTI (urinary tract infection) Current Visit: No Status: Acute Code(s): N39.0 - URINARY TRACT INFECTION, SITE NOT SPECIFIED SNOMED Code(s): 71222458 Plan: 1patient was in the hospital with sepsis in this patient noticed to be hypothermic tachypneic mild hypotension and elevated white count source is multifactorial concerning for UTI with recent urine culture positive for VRE plus minus a component of pneumonia with significant respiratory symptoms 2-patient with multiple antibiotic allergies and renal insufficiency that would limit the number of antibiotics safe to use 3Patient did have procalcitonin level of 4.67 5-patient blood culture came positive with the yeast/Cee sources urinary source patient to continue with Eraxis, blood cultures will be repeated on 10/05/2022 2 document clearance of bacteremia for now also continue with the daptomycin Dictation was produced using [employer] dictation software. please excuse any grammatical, word or spelling errors. Time with Patient: Less than 30
--- NOTE | 2022-10-07 22:40 | P.PN ---
Subjective Progress Note Date: 10/07/22 Principal diagnosis: Sepsis and UTI Patient is a 71-year-old female with a past medical history negative for recurrent urinary tract infection, presented to hospital with weakness and mental status changes and respiratory distress patient was found to be septic likely from urinary source and admitted to ICU requiring BiPAP. On today's evaluation that is 10/07/2022, the patient remains to be afebrile, patient has become more restless this morning and did have some respiratory distress requiring BiPAP patient is lethargic and is unable to provide any history no vomiting or diarrhea has been reported by the nursing staff Objective - Vital Signs Vital signs: Vital Signs Temp 97.9 F 10/07/22 04:00 Pulse 117 H 10/07/22 12:30 Resp 42 H 10/07/22 12:30 BP 102/65 10/07/22 12:30 Pulse Ox 92 L 10/07/22 12:30 FiO2 100 10/07/22 11:25 Intake & Output 10/06/22 10/07/22 10/07/22 18:59 06:59 18:59 Intake Total 860.444 517.609 106.255 Output Total 1320 1910 435 Balance -459.556 -1392.391 -328.745 Weight 70.4 kg 70.4 kg Intake: IV 215 265 95 0.9 KVO 50 110 60 Potassium Chloride 10 meq 100 100 In Water For Injection 1 100ml.bag @ 100 mls/hr IVPB Q1H [facility] Rx#: [id number] lasix 65 55 35 Intake, IV Titration 645.444 252.609 11.255 Amount Amiodarone 450 mg In 250 201.671 Dextrose 5% in Water 250 ml @ 0.5 MG/MIN 16.667 mls/hr IV .Q15H [facility] Rx#: [id number] Anidulafungin 100 mg In 100 Sodium Chloride 0.9% 100 ml @ 84 mls/hr IVPB DAILY [facility] Rx#:[id number] Cefepime 1 gm In Sodium 50 50 Chloride 0.9% 50 ml @ 12. 5 mls/hr IVPB Q12HR [facility] Rx#:[id number] Furosemide 100 mg In 100 Sodium Chloride 0.9% 90 ml @ 10 MG/HR 10 mls/hr IV .Q10H [facility] Rx#: [id number] Norepinephrine 8 mg In 45.444 0.938 11.255 Sodium Chloride 0.9% 250 ml @ 0.03 MCG/KG/MIN 4.22 mls/hr IV .Q24H [facility] Rx#: [id number] Potassium Chloride 10 meq 100 In Water For Injection 1 100ml.bag @ 100 mls/hr IVPB Q1H [facility] Rx#: [id number] Output: Urine 1320 1910 435 Other: Voiding Method Indwelling Catheter Indwelling Catheter Indwelling Catheter ABP, PAP, CO, CI - Last Documented Arterial Blood Pressure 160/69 - Exam GENERAL DESCRIPTION: An elderly female lying in bed in no distress RESPIRATORY SYSTEM: Unlabored breathing , decreased breath sounds at bases HEART: S1 S2 regular rate and rhythm , ABDOMEN: Soft , no tenderness EXTREMITIES: No edema feet - Labs CBC & Chem 7: 10/07/22 07:00 10/07/22 16:48 Labs: Abnormal Lab Results - Last 24 Hours (Table) 10/07/22 10/07/22 10/07/22 Range/Units 01:00 01:11 07:00 WBC 25.2 H (3.8-10.6) k/uL RBC 3.20 L (3.80-5.40) m/uL Hgb 9.4 L (11.4-16.0) gm/dL Hct 30.1 L (34.0-46.0) % RDW 23.9 H (11.5-15.5) % Neutrophils # 23.3 H (1.3-7.7) k/uL ABG pCO2 (35-45) mmHg ABG pO2 (83-108) mmHg ABG HCO3 (21-25) mmol/L ABG Total CO2 (19-24) mmol/L Potassium 3.4 L (3.5-5.1) mmol/L BUN (7-17) mg/dL Creatinine (0.52-1.04) mg/dL Glucose (74-99) mg/dL POC Glucose (mg/dL) 164 H (70-110) mg/dL Calcium (8.4-10.2) mg/dL 10/07/22 10/07/22 10/07/22 Range/Units 07:00 07:12 08:41 WBC (3.8-10.6) k/uL RBC (3.80-5.40) m/uL Hgb (11.4-16.0) gm/dL Hct (34.0-46.0) % RDW (11.5-15.5) % Neutrophils # (1.3-7.7) k/uL ABG pCO2 48 H (35-45) mmHg ABG pO2 78 L (83-108) mmHg ABG HCO3 27 H (21-25) mmol/L ABG Total CO2 28 H (19-24) mmol/L Potassium (3.5-5.1) mmol/L BUN 39 H (7-17) mg/dL Creatinine 1.96 H (0.52-1.04) mg/dL Glucose 160 H (74-99) mg/dL POC Glucose (mg/dL) 168 H (70-110) mg/dL Calcium 7.0 L (8.4-10.2) mg/dL 10/07/22 Range/Units 12:05 WBC (3.8-10.6) k/uL RBC (3.80-5.40) m/uL Hgb (11.4-16.0) gm/dL Hct (34.0-46.0) % RDW (11.5-15.5) % Neutrophils # (1.3-7.7) k/uL ABG pCO2 (35-45) mmHg ABG pO2 (83-108) mmHg ABG HCO3 (21-25) mmol/L ABG Total CO2 (19-24) mmol/L Potassium (3.5-5.1) mmol/L BUN (7-17) mg/dL Creatinine (0.52-1.04) mg/dL Glucose (74-99) mg/dL POC Glucose (mg/dL) 159 H (70-110) mg/dL Calcium (8.4-10.2) mg/dL Microbiology - Last 24 Hours (Table) 10/05/22 15:55 Blood Culture - Preliminary Blood 10/03/22 11:50 Blood Culture Gram Stain - Final Blood Blood Culture - Final Cee albicans 10/03/22 11:35 Blood Culture Gram Stain - Final Blood Blood Culture - Final Cee albicans 10/03/22 12:45 Gram Stain - Final Groin Wound Culture - Final Enterococcus faecium VRE Cee albicans Assessment and Plan (1) Sepsis Current Visit: No Status: Acute Code(s): A41.9 - SEPSIS, UNSPECIFIED ORGANISM SNOMED Code(s): 92391243 (2) UTI (urinary tract infection) Current Visit: No Status: Acute Code(s): N39.0 - URINARY TRACT INFECTION, SITE NOT SPECIFIED SNOMED Code(s): 69453270 Plan: 1patient was in the hospital with sepsis in this patient noticed to be hypothermic tachypneic mild hypotension and elevated white count source is multifactorial concerning for UTI with recent urine culture positive for VRE plus minus a component of pneumonia with significant respiratory symptoms 2-patient with multiple antibiotic allergies and renal insufficiency that would limit the number of antibiotics safe to use 3Patient did have procalcitonin level of 4.67 5-patient blood culture came positive with the yeast/Cee sources urinary, the patient local culture from the genital area did grow cee and VRE 6- patient to continue with Eraxis, and daptomycin, day. Repeat Blood culture so far negative Dictation was produced using [employer] dictation software. please excuse any grammatical, word or spelling errors.
[2022-10-07 23:51] LABS: Glucose,Whole Blood 164 mg/dL (70-110)
[2022-10-08] MEDS: NOREPINEPHRINE 8 MG in SODIUM CHLORIDE 0.9% 250 ML IV SCH ×2 (00:52→02:48)
[2022-10-08] MEDS ORDERED: VASOPRESSIN 20 UNIT in SODIUM CHLORIDE 0.9% 50 ML IV SCH (03:30)
[2022-10-08] MEDS: AMIODARONE 450 MG in DEXTROSE 5% IN WATER 250 ML IV SCH ×2 (05:31)
[2022-10-08] MEDS: MIDODRINE 5 MG TAB PO SCH (05:32)
[2022-10-08] MEDS: DILTIAZEM 125 MG in SODIUM CHLORIDE 0.9% 100 ML IV SCH (05:32)
[2022-10-08 05:47] LABS: Glucose,Whole Blood 149 mg/dL (70-110)
[2022-10-08] MEDS: LORazepam 2 MG/ML INJ IV PRN ×2 (05:48→09:57)
[2022-10-08] MEDS: FUROSEMIDE 100 MG in SODIUM CHLORIDE 0.9% 90 ML IV SCH (06:35)
[2022-10-08] MEDS: IPRATROPIUM-ALBUTEROL 3 ML NEB INHALATION SCH (08:03)
[2022-10-08 08:09] VITALS: BP 172/75; RESP 35; TEMP 97.4
[2022-10-08] MEDS: HYDROmorphone 1 MG/ML 1 ML SYRINGE IVP PRN (08:11)
[2022-10-08 08:13] VITALS: PULSE 102
[2022-10-08] MEDS ORDERED: ONDANSETRON 4 MG/2 ML VIAL IVP PRN (09:27)
[2022-10-08] MEDS ORDERED: MORPHINE SULFATE 2 MG/ML SYRINGE IV PRN (09:27)
[2022-10-08] MEDS ORDERED: MORPHINE SULFATE 4 MG/ML SYRINGE IVP ONE (09:27)
[2022-10-08] MEDS ORDERED: MORPHINE SULFATE 4 MG/ML SYRINGE IV PRN (09:27)
[2022-10-08] MEDS ORDERED: ATROPINE OPHTH SOLN 1% 5ML BTL SUBLINGUAL PRN (09:27)
[2022-10-08] MEDS ORDERED: METOCLOPRAMIDE 5 MG/ML 2 ML VIAL IVP PRN (09:27)
[2022-10-08] MEDS ORDERED: MORPHINE SULFATE (100 MG/2 ML) 100 MG in SODIUM CHLORIDE 0.9% 100 ML IV SCH (09:30)
[2022-10-08] MEDS ORDERED: SCOPOLAMINE 1 MG/72 HR PATCH TRANSDERM SCH (10:00)
--- NOTE | 2022-10-08 10:24 | P.PN ---
Subjective Progress Note Date: 10/08/22 This is a 71-year-old female with history of multiple medical problems including type 2 diabetes, hypertension, diabetic neuropathy, migraine cephalgia, COPD, patient was recently in the hospital with nephrolithiasis, and hydronephrosis. She was seen by urology on consultation, and no surgical intervention was felt to be necessary for her nephrolithiasis or mild hydronephrosis. Patient was treated conservatively, she was discharged home on the . Patient was brought into the ER today complaining of shortness of breath and mental status change. Apparently upon arrival to the ER, the patient was in respiratory distress, she was also confused, patient was placed on BiPAP. Her initial ABG on arrival showed a pO2 of 74 pCO2 42 pH of 7.07 consistent with severe metabolic acidosis. Her bicarb was only 12. BUN is 41 and creatinine 4.80 however her creatinine was in the range of 1.30 just a few days ago. Obviously the patient had developed worsening renal failure, severe metabolic acidosis secondary to her renal failure, and her chest x-ray showed evidence of multiple interstitial infiltrates/edema I favor pulmonary edema since the patient is known to have history of mild LV dysfunction with ejection fraction of 45%, and now she has acute renal failure with possibly fluid overload. Underlying pneumonia is not entirely ruled out but felt to be less likely. Patient did have leukocytosis she also did have elevated BNP level, however her pro calcitonin is pending. Renal ultrasound done today, continues to show mild the left hydronephrosis similar to what she had on the last admission, and she had nonobstructive bilateral renal calculi with atrophic right kidney nephrology consultation is pending. In the meantime the patient was placed empirically on antibiotics in the form of Rocephin and Zithromax. Looking at previous urine cultures from the last admission, patient did have Enterococcus faecium/VRE positive cultures and the urine and previously she had history of ESBL Klebsiella pneumoniae infection in the urine considering this, the patient will need to be covered with daptomycin and will definitely arrange for consultation by infectious disease on the case. As the patient may have underlying urinary tract infection and urosepsis. The patient is seen today 10/04/2022 in follow-up in the intensive care unit. She is currently awake and alert. She is on BiPAP 12/5 and 60% FiO2 maintaining O2 saturations in the 90s. She is still requiring a Lasix drip currently at 5 mg per hour. Norepinephrine at 0.07 mcg/kg/m. Bicarb drip has been discontinued. Chest x-ray shows similar haziness in the left lung and right perihilar region with small bilateral pleural effusions. Cardiomegaly and suspected congestive heart failure versus pneumonia. White count 16.6. Hemoglobin 9.6. Platelet 147. Sodium 140. Potassium 3.2. Bicarb 23. BUN 40. Creatinine 3.58. Glucose 201. Pro calcitonin 4.67. ProBNP 12,000. Childress virus not detected. Urinalysis cloudy with large blood and large leukocytes HIDA be PVCs and occasional bacteria. She remains on cefepime, daptomycin, Diflucan. Continued on bronchodilators. The patient is seen today 10/05/2022 in follow-up in the intensive care unit. She is currently sitting up in bed. Awake and alert in no acute distress. She remains on 6 L high flow nasal cannula. She did utilize BiPAP last night 02/15 and 60% FiO2. She is continued on a Lasix drip at 5 mg per hour. Amiodarone at 0.5 mg/m. Norepinephrine at 0.03 mcg/kg/m. Chest x-ray reveals patchy perihilar and basilar infiltrates without significant change. Small pleural effusions. White count 15.8. Hemoglobin 9.3. Platelets 146. Sodium 138. Potassium 3.9. Bicarb 23. BUN 41. Creatinine 2.90. Glucose 136. She is continued on Diflucan, cefepime and daptomycin. Anticoagulated with Eliquis. The patient is seen today 10/06/2022 in follow-up in the intensive care unit. She is awake and alert. Confused at times. Sitting up in bed. Currently on 6 L high flow nasal cannula. She has not utilize the BiPAP. She had been in atrial fibrillation with rapid ventricular response. She's been initiated on amiodarone drip at 0.5 mg/m. She is continued on norepinephrine at 0.02 mcg/kg/m. Lasix drip at 5 mg per hour. Currently in a negative balance. Wound cultures positive for group D enterococcus, Cee albicans. Antibiotics in the form of cefepime, daptomycin, Eraxis. She remains anticoagulated with Eliquis. Globin 9.1. Platelets 176. Sodium 139. Potassium 3.7. Bicarb 22. BUN 39. Creatinine 2.43. Glucose 130. Patient is seen today 10/07/2022 in follow-up in the intensive care unit. She is currently on BiPAP 12/5 and 100% FiO2 to maintain O2 saturations in the 90s. Arterial blood gases revealed a PaO2 of 78, pCO2 48 and a pH of 7.35. She remains on norepinephrine at 4 mcg/m. Lasix drip at 5 mg per hour. Amiodarone drip at 0.5 mg/m. Normal saline at KVO. She remains on antibiotics in the form of vancomycin, cefepime and Eraxis. She is receiving DuoNeb inhalations every 4 hours. She is anticoagulated with Eliquis. Wound cultures from the groin are positive for enterococcus faecium VRE and Cee. Blood cultures are positive for Cee. Urine culture revealed no growth. Follow-up blood culture pending. White count 25.2. Hemoglobin 9.4. Platelets 187. Sodium 140. Potassium 3.5. Bicarb 24. BUN 39. Creatinine 1.96. Glucose 160. Chest x-ray continues to show hypoventilatory changes with ongoing patchy pulmonary edema. Continued small right pleural effusion with adjacent atelectasis. The patient is seen today 10/08/2022 in follow-up in the intensive care unit. She is currently on the BiPAP 12/5 and 85% FiO2. Her respiratory rate remains high in the 30s. She has been requiring Ativan alternating with Dilaudid for comfort. She remains on a Lasix drip at 10 mg per hour. Norepinephrine at 0.03 mcg/kg/m. Amiodarone at 0.5 mg/m and normal saline at 20 ML's per hour. She has not shown any significant improvement in the past 24 hours. Wound culture was positive for enterococcus fascia VRE and Cee. Blood cultures are positive for Cee. Blood glucose 149. She remains on DuoNeb inhalations. Anticoagulated with Eliquis. Antibiotics in the form of cefepime and daptomycin. Objective - Vital Signs Vital signs: Vital Signs Temp 97.4 F L 10/08/22 08:00 Pulse 102 H 10/08/22 08:13 Resp 35 H 10/08/22 08:00 BP 172/75 10/08/22 08:00 Pulse Ox 89 L 10/08/22 08:00 FiO2 85 10/08/22 07:46 Intake & Output 10/07/22 10/08/22 10/08/22 18:59 06:59 18:59 Intake Total 476.255 744.972 30 Output Total 620 535 120 Balance -143.745 209.972 -90 Weight 70.4 kg 71 kg Intake: IV 215 390 30 0.9 KVO 120 260 20 lasix 95 130 10 Intake, IV Titration 261.255 354.972 Amount Amiodarone 450 mg In 250 171.948 Dextrose 5% in Water 250 ml @ 0.5 MG/MIN 16.667 mls/hr IV .Q15H [facility] Rx#: [id number] Furosemide 100 mg In 178.5 Sodium Chloride 0.9% 90 ml @ 10 MG/HR 10 mls/hr IV .Q10H [facility] Rx#: [id number] Norepinephrine 8 mg In 11.255 4.524 Sodium Chloride 0.9% 250 ml @ 0.03 MCG/KG/MIN 4.22 mls/hr IV .Q24H [facility] Rx#: [id number] Output: Urine 620 535 120 Other: Voiding Method Indwelling Catheter Indwelling Catheter ABP, PAP, CO, CI - Last Documented Arterial Blood Pressure 133/58 - Exam GENERAL EXAM: Arousable, confused 71-year-old female on BiPAP 12/5 with 85% FiO2, in respiratory distress. HEAD: Normocephalic. EYES: Normal reaction of pupils, equal size. NOSE: Clear with pink turbinates. THROAT: No erythema or exudates. NECK: No masses, no JVD. CHEST: No chest wall deformity. LUNGS: Equal air entry with crackles at the bilateral bases. CVS: S1 and S2 normal with no audible murmur, regular rhythm. ABDOMEN: No hepatosplenomegaly, normal bowel sounds, no guarding or rigidity. SPINE: No scoliosis or deformity SKIN: No rashes CENTRAL NERVOUS SYSTEM: Brief but nonfocal, tone is normal in all 4 extremities. EXTREMITIES: There is 1+ peripheral edema. No clubbing, no cyanosis. Peripher al pulses are intact. - Labs CBC & Chem 7: 10/07/22 07:00 10/07/22 16:48 Labs: Abnormal Lab Results - Last 24 Hours (Table) 10/07/22 10/07/22 10/07/22 Range/Units 12:05 17:52 23:50 POC Glucose (mg/dL) 159 H 156 H 164 H (70-110) mg/dL 10/08/22 Range/Units 05:45 POC Glucose (mg/dL) 149 H (70-110) mg/dL Microbiology - Last 24 Hours (Table) 10/05/22 15:55 Blood Culture - Preliminary Blood Assessment and Plan Assessment: Acute hypoxic respiratory failure secondary to pulmonary edema from an acute exacerbation of diastolic congestive heart failure Acute sepsis and septic shock, most likely source is wound of the groin, with enterococcus fasecium VRE and cee albicans. Severe metabolic acidosis secondary to acute kidney injury Acute kidney injury secondary to hypotension Atrial fibrillation, currently on amiodarone drip, Eliquis History of chronic kidney disease stage III Benign essential hypertension Diabetic neuropathy History of bariatric surgery Poor overall functional performance in the above-mentioned multiple comorbidities Plan: The patient was seen and evaluated She continues to do quite poorly Family is coming in today and will most likely proceed with comfort care I have personally seen and examined the patient, performed the documentation and the assessment and plan as written. Number of minutes spent on the visit: 10.
--- NOTE | 2022-10-08 11:04 | P.PN ---
Subjective This is a pleasant 71 years old female with multiple medical problems including Diabetes Mellitus, Hypertension, NEUROPATHY, MIGRAINES, fractured right shoulder,s/p Bariatric Surgery, Bladder Surgery, Hysterectomy, COPD altered mentation and respiratorty distress. The pt was found by the pts this morning in her recliner chair with belly breathing and difficult to arouse. Patient currently on BiPAP machine but she can answer some questions although she looks tired and lethargic. Patient says she's been feeling short of breath for the last 2-3 days with no chest pain or coughing. Was progressively getting worse. Patient basically denies other symptoms like no headache dizziness weakness or numbness. No abdominal pain vomiting or diarrhea. No urinary complaints. SHE admits to some vaginal discharge for 3 days. On admission she was tachypneic about 40/m, blood pressure 95/56. Patient is afebrile Also patient with leukocytosis 22.8, hemoglobin 10. Platelet count within the reference range INR 1.6. D-dimer 0.67. Arterial pH is low 7.0. PO2 74. CO2 within the reference range at 42. Potassium 5.3. Creatinine elevated 4.8, with a baseline 1.3-1.4 liver enzymes and bilirubin unremarkable. ProBNP 12,000. Troponin negative. Childress v is not detected EKG: Normal sinus rhythm at [address]-T changes. Chest x-ray: Haziness within the left upper lung and right perihilar regions correlate with serum BNP 4 congestive heart failure and for a new pneumonia. I reviewed chest x-ray by myself also the suspicion of pleural effusion On admission patient was started on 10/04/2022 pt remains in the icu in critical condition but showing signs of improvement her resp rate decreased from 33 down to (25-27),her oxygen requirement went down from 15 to 10 l/m her creatinine is down to 2.5 from 4.8 leukocytosis is improving 22 down to 16k however her prognosis remains guarded several intelligence consultant on the case including pulmonary and critical care team associate entertainment editor and jacquard loom card changer and ID team she is on levophed, Lasix drip at 5 mg/hr, daptomycin, cefepime and diflucan , also pt was started on eliquis and amiodarone drip by cardiology team 10/05/2022 Patient remains in the ICU, she is oriented to time place and person she looks lethargic Her oxygen requirement down from 10 down to 6 L/m She remains on Levophed at 0.03 and Lasix drip and 5 mg/h, amiodarone drip in the morning she switched to oral later on. Patient also was poor appetite. No bowel movement. Krishnamurthy catheter is in place. Patient still in fluid overload and that's why she is on Lasix drip mostly related to her kidney disease Currently she is covered with daptomycin, cefepime and eraxis. Wound culture is growing group D enterococcus I and yeast 10/06/2022 Patient remains intubated and sedated closely and help with development management. And she still on high-dose oxygen. WBC slightly worse 18,000, hemoglobin 9, creatinine improving down to 2.4. Wound culture is growing group D anterior cocci and cee Patient remains on cefepime, daptomycin and Eraxis, amiodarone and Eliquis was added In awake does not look in distress but severely weak and lethargic and complaining of from back pain, lidocaine patch on pain medication was provided for her Objective - Vital Signs Vital signs: Vital Signs Temp 97.0 F L 10/06/22 16:00 Pulse 92 10/06/22 21:15 Resp 20 10/06/22 21:30 BP 125/66 10/06/22 21:30 Pulse Ox 93 L 10/06/22 21:30 FiO2 60 10/06/22 04:00 Intake & Output 10/06/22 10/06/22 10/07/22 06:59 18:59 06:59 Intake Total 340.999 745.444 331.671 Output Total 1045 1320 435 Balance -704.001 -574.556 -103.329 Weight 71 kg Intake: IV 200 130 0.9 KVO 40 20 Potassium Chloride 10 meq 100 100 In Water For Injection 1 100ml.bag @ 100 mls/hr IVPB Q1H ALBERTO Rx#: [id number] lasix 60 10 Intake, IV Titration 340.999 545.444 201.671 Amount Amiodarone 450 mg In 250 201.671 Dextrose 5% in Water 250 ml @ 0.5 MG/MIN 16.667 mls/hr IV .Q15H ALBERTO Rx#: [id number] Anidulafungin 100 mg In 100 Sodium Chloride 0.9% 100 ml @ 84 mls/hr IVPB DAILY ALBERTO Rx#:[id number] Cefepime 1 gm In Sodium 50 50 Chloride 0.9% 50 ml @ 12. 5 mls/hr IVPB Q12HR ALBERTO Rx#:[id number] Furosemide 100 mg In 84.083 Sodium Chloride 0.9% 90 ml @ 5 MG/HR 5 mls/hr IV .Q20H ALBERTO Rx#:[id number] Norepinephrine 8 mg In 6.916 45.444 Sodium Chloride 0.9% 250 ml @ 0.03 MCG/KG/MIN 4.22 mls/hr IV .Q24H ALBERTO Rx#: [id number] Potassium Chloride 10 meq 200 In Water For Injection 1 100ml.bag @ 100 mls/hr IVPB Q1H ALBERTO Rx#: [id number] Potassium Chloride 10 meq 100 In Water For Injection 1 100ml.bag @ 100 mls/hr IVPB Q1H ALBERTO Rx#: [id number] Output: Urine 1045 1320 435 Other: Voiding Method Indwelling Catheter Indwelling Catheter Indwelling Catheter ABP, PAP, CO, CI - Last Documented Arterial Blood Pressure 132/57 - Exam -GENERAL: The patient is alert and oriented x3, in moderate acute respiratory distress. Well developed, well nourished. HEENT: Pupils are round and equally reacting to light. EOMI. No scleral icterus. No conjunctival pallor. Normocephalic, atraumatic. No pharyngeal erythema. No thyromegaly. CARDIOVASCULAR: S1 and S2 present. No murmurs, rubs, or gallops. -PULMONARY: Chest is clear to auscultation, no wheezing , no crackles. Decreased air entry especially abdomen lung bases, tachypnea ABDOMEN: Soft, nontender, nondistended, normoactive bowel sounds. No palpable organomegaly. MUSCULOSKELETAL: No joint swelling or deformity. -EXTREMITIES: No cyanosis, clubbing, or bilateral extremity edema NEUROLOGICAL: Gross neurological examination did not reveal any focal deficits. SKIN: No rashes. no petechiae. - Labs CBC & Chem 7: 10/07/22 07:00 10/07/22 16:48 Labs: Abnormal Lab Results - Last 24 Hours (Table) 10/05/22 10/06/22 10/06/22 Range/Units 23:33 04:30 04:30 WBC 18.3 H (3.8-10.6) k/uL RBC 3.04 L (3.80-5.40) m/uL Hgb 9.1 L (11.4-16.0) gm/dL Hct 28.6 L (34.0-46.0) % RDW 23.5 H (11.5-15.5) % Neutrophils # 15.9 H (1.3-7.7) k/uL BUN 39 H (7-17) mg/dL Creatinine 2.43 H (0.52-1.04) mg/dL Glucose 130 H (74-99) mg/dL POC Glucose (mg/dL) 168 H (70-110) mg/dL Calcium 7.2 L (8.4-10.2) mg/dL 10/06/22 Range/Units 11:42 WBC (3.8-10.6) k/uL RBC (3.80-5.40) m/uL Hgb (11.4-16.0) gm/dL Hct (34.0-46.0) % RDW (11.5-15.5) % Neutrophils # (1.3-7.7) k/uL BUN (7-17) mg/dL Creatinine (0.52-1.04) mg/dL Glucose (74-99) mg/dL POC Glucose (mg/dL) 186 H (70-110) mg/dL Calcium (8.4-10.2) mg/dL Microbiology - Last 24 Hours (Table) 10/05/22 15:55 Blood Culture - Preliminary Blood 10/03/22 11:50 Blood Culture Gram Stain - Final Blood Blood Culture - Final Cee albicans 10/03/22 11:35 Blood Culture Gram Stain - Final Blood Blood Culture - Final Cee albicans 10/03/22 12:45 Gram Stain - Final Groin Wound Culture - Final Enterococcus faecium VRE Cee albicans Assessment and Plan Assessment: acute congestive heart failure ,diastolic with ef 55-60% acute UTI, and possible pna as well Hypotension and shock , both cardiogenic and septic Acute hypoxic respiratory failure Severe metabolic acidosis Acute kidney injury on chronic kidney disease stage III Diabetes mellitus Hypertension History of neuropathy and migraine History of bariatric surgery Obesity with BMI of 30.3 Plan: Continue with antibiotics daptomycin , cefepime, and eraxis. Follow-up culture results. Continue with oxygen and BiPAP as needed. Patient on lasix drip continue the pressors levophed Symptomatic vaginal swab several consultants on the case pulmonary and critical care, jacquard loom card changer, ID, Pastrycook Labs and medication were reviewed.. Continue same treatment. Continue with symptomatic treatment. Resume home medication. Monitor labs and vitals. DVT and GI prophylaxis. Further recommendations as per clinical course of the patient DVT prophylaxis:Eliquis GI Prophylaxis: Ppi Prognosis is guarded
[2022-10-08] MEDS: LIDOCAINE 5% PATCH TOPICAL SCH (11:41)
--- NOTE | 2022-10-08 13:30 | PN ---
PROGRESS NOTE DATE OF SERVICE: 10/08/2022 SUBJECTIVE: This is a 71-year-old woman, who was admitted with the UTI with sepsis and Cee albicans sepsis, is on comfort measures. At this time, the patient is sedated, appears to be comfortable. OBJECTIVE: VITAL SIGNS: Pulse is 100, blood pressure isntd, respiration 35. CHEST: Clear. CARDIOVASCULAR: S1, S2. ABDOMEN: Soft. NERVOUS SYSTEM: Unresponsive. LABORATORY DATA: Reviewed. ASSESSMENT: 1. Acute urinary tract infection with sepsis. 2. Cee albicans sepsis. 3. Congestive heart failure with acute exacerbation with acute on chronic diastolic dysfunction; ejection fraction of 55% to 60%. 4. Acute hypoxic respiratory failure, status post mechanical ventilation. 5. Acute kidney injury with acute on chronic kidney disease, baseline kidney disease, stage 3. 6. Diabetes mellitus type 2. 7. Hypertension. 8. History of polyneuropathy. 9. History of bariatric surgery. RECOMMENDATIONS: 1. Recommended to continue current medications. 2. No code. No CPR. 3. Recommended to continue current management and continue comfort measures. Prognosis is guarded. Closely follow. Further recommendations to follow. Discussed with family. MMODL / IJN: [id number] / JESSICA
--- NOTE | 2022-10-09 15:19 | DS ---
DISCHARGE SUMMARY PRELIMINARY CAUSE OF : UTI with sepsis. OTHER DIAGNOSES: 1. Cee albicans sepsis. 2. Congestive heart failure, acute exacerbation. 3. Acute hypoxic respiratory failure. 4. Acute kidney injury. 5. Multiple medical issues. HISTORY OF PRESENT ILLNESS: This is a 71-year-old woman with a past medical history of multiple medical problems, who was admitted with features of acute UTI with sepsis. Patient also had Cee albicans sepsis. Also, the patient's condition did not improve and the family had detailed discussion and comfort measures proceeded and the patient _ above- mentioned multiple complex medical issues. The patient's condition remains extremely guarded and please refer to the multiple consultations and progress notes including notes from Infectious Disease and Pulmonary for further details family on multiple occasions. MMODL / IJN: [id number] / JESSICA
--- NOTE | 2022-10-11 13:09 | CDI ---
Documentation Clarification Form Date: 10/11/2022 12:50:31 PM From: Aura Velasquez Phone: Admit Date: 10/03/2022 11:18:00 AM Patient Name: Cheo Alamo Visit Number: [id number] Discharge Date: 10/08/2022 10:20:00 PM ATTENTION: The Clinical Documentation Specialists (CDI) and [facility] Coding Staff appreciate your assistance in clarifying documentation. Please respond to the clarification below the line at the bottom and electronically sign. The CDI & [facility] Coding staff will review the response and follow-up if needed. Please note: Queries are made part of the Legal Health Record. If you have any questions, please contact the author of this message via ITS. Dr. Rocio Strauss There is documentation of acute hypoxic respiratory failure onmechanical ventilation per Progress Note 10/07 and 10/08. Additional clarification is requested. History/Risk Factors: 71yo F, UTIwithCandidaalbicanssepsis w shock, ACCHF, AHRF, AECOPD DMII w LISA ON CKD IIIA Clinical Indicators: Titrate FiO2 and continueBiPAPfor now if condition gets worse patient needs to be intubated andmechanically ventilated Treatment: BiPap support. Pt made DNR/DNI. Pt Can you please confirm if patient was mechanically ventilated? [ ] Yes patient was mechanically ventilated on (please insert date and time) and extubated on (please insert date and time) . [ ] No, patient was not mechanically ventilated. [ ] Other, please specify [ ] Unable to determine (Template Last Revised: May 2020) MTDD
--- NOTE | 2022-10-18 12:10 | CDI ---
Documentation Clarification Form Date: 10/18/2022 12:02:16 PM From: Aura Velasquez Phone: Admit Date: 10/03/2022 11:18:00 AM Patient Name: Cheo Alamo Visit Number: [id number] Discharge Date: 10/08/2022 10:20:00 PM ATTENTION: The Clinical Documentation Specialists (CDI) and [facility] Coding Staff appreciate your assistance in clarifying documentation. Please respond to the clarification below the line at the bottom and electronically sign. The CDI & [facility] Coding staff will review the response and follow-up if needed. Please note: Queries are made part of the Legal Health Record. If you have any questions, please contact the author of this message via ITS. Dr. Rocio Strauss Thank you for acknowledging the previous query; however, it lacked clarification. There is documentation of acute hypoxic respiratory failure on mechanical ventilation per Progress Note 10/07 and 10/08.Additional clarification is requested. History/Risk Factors: 71yo F, UTI with Cee albicans sepsis w shock, ACCHF, AHRF, AECOPD DMII w LISA ON CKD IIIA Clinical Indicators: Titrate FiO2 and continue BiPAP for now if condition gets worse patient needs to be intubated and mechanically ventilated. Treatment: BiPap support. Pt made DNR/DNI. Pt Can you please confirm if patient was mechanically ventilated? [ ] Yes patient was mechanically ventilated on (please insert date and time) and extubated on (please insert date and time) . [ ] No, patient was not mechanically ventilated. [ ] Other, please specify [ ] Unable to determine (Template Last Revised: May 2020) es patient was mechanically ventilated MTDD
--- NOTE | 2022-10-20 12:19 | CDI ---
Documentation Clarification Form Date: 10/20/2022 11:54:32 AM From: Aura Velasquez Phone: Admit Date: 10/03/2022 11:18:00 AM Patient Name: Cheo Alamo Visit Number: [id number] Discharge Date: 10/08/2022 10:20:00 PM ATTENTION: The Clinical Documentation Specialists (CDI) and [facility] Coding Staff appreciate your assistance in clarifying documentation. Please respond to the clarification below the line at the bottom and electronically sign. The CDI & [facility] Coding staff will review the response and follow-up if needed. Please note: Queries are made part of the Legal Health Record. If you have any questions, please contact the author of this message via ITS. Dr. Rocio Strauss Conflicting documentation has been found in the medical record. As attending physician, please provide clarification. Titrate FiO2 and continueBiPAPPulmonology Consult Note 10/03 Yes patient wasmechanically ventilated Senior Hris Analyst Query 10/18 Dr. Rocio Strauss History/Risk Factors: 71yo F, UTI with Cee albicans sepsis w shock, ACCHF, AHRF, AECOPD DMII w LISA ON CKD IIIA Clinical Indicators: Pt madeDNR/DNI and comfort care. Pt Patient transitioned to comfort care at 1000 this morning. Family at bedside throughout the day. Morphine infusion started for pain control. Patient at 1755 per 10/08/22 18:08 - Nurse Note by Migdalia Merritt Treatment: BiPap support per ED Note 10/04 No Intubation/Vent procedure doc Can you please clarify type of respiratory support patient received? [ ] BiPap support only [ ] Intubation with vent support (provide dated of Intubation and times) [ ] Other, please specify [ ] Unable to determine (Template Last Revised: May 2020) BiPap support only MTDD
== END 2022-10-08 22:20 | disposition expired | DRG 871 ==
LOC: EC 10:10 → 2SICU 11:18
PROVIDERS: ADMIT Internal Medicine; ATTEND Internal Medicine
PROC: 5A09457 Assistance with Respiratory Ventilation, 24-96 Consecutive Hours, Continuous Positive Airway Pressure (ICD-10-PCS; principal; 2022-10-03)
PROC: 06HM33Z Insertion of Infusion Device into Right Femoral Vein, Percutaneous Approach (ICD-10-PCS; 2022-10-03)
PROC: 04HY32Z Insertion of Monitoring Device into Lower Artery, Percutaneous Approach (ICD-10-PCS; 2022-10-03)
PROC: 4A133B1 Monitoring of Arterial Pressure, Peripheral, Percutaneous Approach (ICD-10-PCS; 2022-10-03)
PROC: 4A133J1 Monitoring of Arterial Pulse, Peripheral, Percutaneous Approach (ICD-10-PCS; 2022-10-03)
PROC: 3E043XZ Introduction of Vasopressor into Central Vein, Percutaneous Approach (ICD-10-PCS; 2022-10-04)
DX: B37.7 Candidal sepsis (principal); I50.43 Acute on chronic combined systolic (congestive) and diastolic (congestive) heart failure; J96.01 Acute respiratory failure with hypoxia; N17.0 Acute kidney failure with tubular necrosis; R65.21 Severe sepsis with septic shock; J15.6 Pneumonia due to other Gram-negative bacteria; E87.20 Acidosis, unspecified; I13.0 Hypertensive heart and chronic kidney disease with heart failure and stage 1 through stage 4 chronic kidney disease, or unspecified chronic kidney disease; J44.1 Chronic obstructive pulmonary disease with (acute) exacerbation; Z16.21 Resistance to vancomycin; J44.0 Chronic obstructive pulmonary disease with (acute) lower respiratory infection; N13.6 Pyonephrosis; R57.0 Cardiogenic shock; I27.20 Pulmonary hypertension, unspecified; E11.40 Type 2 diabetes mellitus with diabetic neuropathy, unspecified; N18.31 Chronic kidney disease, stage 3a; I48.91 Unspecified atrial fibrillation; E66.9 Obesity, unspecified; Z66 Do not resuscitate; Z51.5 Encounter for palliative care; B37.49 Other urogenital candidiasis; E87.5 Hyperkalemia; N89.8 Other specified noninflammatory disorders of vagina; B37.31 Acute candidiasis of vulva and vagina; B95.2 Enterococcus as the cause of diseases classified elsewhere; G43.909 Migraine, unspecified, not intractable, without status migrainosus; I49.3 Ventricular premature depolarization; E87.6 Hypokalemia; T50.2X5A Adverse effect of carbonic-anhydrase inhibitors, benzothiadiazides and other diuretics, initial encounter; T47.1X5A Adverse effect of other antacids and anti-gastric-secretion drugs, initial encounter; Z20.822 Contact with and (suspected) exposure to COVID-19; E11.22 Type 2 diabetes mellitus with diabetic chronic kidney disease; Z68.30 Body mass index [BMI] 30.0-30.9, adult; Z86.19 Personal history of other infectious and parasitic diseases; Z79.899 Other long term (current) drug therapy; Z79.83 Long term (current) use of bisphosphonates; Z79.01 Long term (current) use of anticoagulants; Z88.0 Allergy status to penicillin; Z88.2 Allergy status to sulfonamides; Z88.5 Allergy status to narcotic agent; Z87.442 Personal history of urinary calculi; Z98.84 Bariatric surgery status
CPT/HCPCS: 36415; 36600; 51702; 71045; 76770; 80048; 80053; 81001; 82533; 82805; 83605; 83735; 83880; 84132; 84145; 84484; 85025; 85379; 85610; 85730; 87040; 87070; 87077; 87086; 87186; 87205; 87449; 87635; 93005; 93306; 94640; 94660; 96365; 96368; 99291